=== PATIENT | male | born 1950 | race African-American/Black ===

== ENCOUNTER 2017-03-06 10:01 | Outpatient (CLI) | payer MEDICARE, MEDICAID ==
[~2017-03-06 10:01] MED LIST: ARTIFICIAL TEAR15 ML BOTH EYES; CEFEPIME-D2 GM/50 ML IVPB; CRANBERRY450 M4 PO; KEPPRA500 MG ORAL; LASIX20 M1 ORAL; LISINOPRIL20 MG ORAL; MULTIVITAMINS1 EAC2 ORAL; NEURONTIN300 MG ORAL; NITROGLYCERIN0.4 MG SL; POLYVINYL ALCOH15 ML BOTH EYES; SIMVASTATIN40 MG ORAL; SPIRONOLACTONE25 MG ORAL; TYLENOL325 MG ORAL
--- NOTE | 2017-03-06 13:00 | Diagnostic Imaging Report ---
Clinical Indication: 58-year-old male outpatient with right upper extremity swelling and chest pain Technique: IV administration nonionic contrast. Spiral acquisition obtained through the chest. Multiplanar reconstructions generated. Total dose length product 1746 mGycm. CTDIvol(s) 8, 121, 27, 19 mGy. At the desires are inclusive of neck CT reported separately Dose reduction achieved using automated exposure control Comparison: None Findings: There are somewhat low lung volumes. There is crowding of the vascular markings. There is equivocal slight prominence to the centrilobular interstitial markings, particularly in the upper lobes. No focal airspace consolidation, infiltrates, or effusions are demonstrated. Some scarring is seen in the posterior lateral left lower lobe at the level of pulmonary hilum. The heart is enlarged, demonstrating four-chamber cardiomegaly. There is a right subclavian AICD. The right innominate vein is probably patent. Patency of the right subclavian vein cannot be established as it is not opacified. However, there are no significant collaterals to suggest significant venoocclusive disease. The main pulmonary artery is ectatic, measuring 3.8 cm diameter. The thoracic aorta is also somewhat ectatic although not aneurysmal. There are extensive coronary artery calcifications. No pericardial effusion. No mediastinal hilar mass or adenopathy. Included thyroid is unremarkable. No axillary or chest wall mass or adenopathy. The included upper abdominal anatomy is unremarkable. Impression: Possible mild pulmonary edema No definite findings to explain stated clinical history of right arm swelling. However, the right subclavian vein is not opacified, and stenosis of it cannot be confidently ruled out, particular in view of the presence of AICD wires within. However, there are no definite collaterals to suggest such. Noninvasive duplex imaging may be useful to confirm patency Cardiomegaly Mild interstitial septal thickening, may reflect mild pulmonary edema Mildly ectatic main pulmonary artery, could indicate pulmonary internal hypertension Minimal left upper lobe parenchymal scarring The CT scanner at [facility] is accredited by the [employer] and the scans are performed using protocols designed to limit radiation exposure to as low as reasonably achievable to attain images of sufficient resolution adequate for diagnostic evaluation.
--- NOTE | 2017-03-06 15:25 | Diagnostic Imaging Report ---
Indication: Right upper extremity swelling and chest pain Technique: IV administration nonionic contrast Spiral acquisitions obtained through the neck Multiplanar reconstructions were generated. Total dose length product 1746 mGycm. CTDIvol(s) 8, 121, 27, 19 mGy. Radiation dose was minimized using automated exposure control Comparison: None Findings: Slightly prominent adenoids, otherwise unremarkable nasopharynx. Symmetric prominent tonsillar pillars, otherwise unremarkable oral pharynx. Note tortuosity of the proximal right internal carotid artery, which protrudes immediately lateral and posterior to the right posterior oral pharyngeal mucosa. The left puriform sinus is not aerated, and there is a small amount of hypoattenuating soft tissue in this area, which measures approximately 7 mm transverse by 12 mm AP by 21 mm caudad. Within this soft tissue, there is a 5 mm calcification. The larynx appears unremarkable. No cervical mass or adenopathy is evident. No evidence of significant carotid arterial or jugular venous stenosis. Normal and symmetrical bilateral parotid and submandibular glands. No supraclavicular mass or adenopathy. There is sphenoid sinus disease noted on the highest cut. The thyroid is unremarkable. Wires from what is presumably a right chest pacemaker are noted. There is degenerative cervical spondylosis. Patient is edentulous Impression: Asymmetric absence of aeration of the left piriform sinus, possibly occupied by a small amount of abnormal soft tissue as well as a calcification. Although this could be on the basis of physiologic asymmetry, mucosal malignancy at this location cannot be ruled out, and further evaluation with direct visualization is recommended. Tortuosity of the proximal right internal carotid artery, which is located just behind the right lateral oropharynx CT sinus disease Pacemaker Degenerative cervical spondylosis The CT scanner at [facility] is accredited by the [employer] and the scans are performed using protocols designed to limit radiation exposure to as low as reasonably achievable to attain images of sufficient resolution adequate for diagnostic evaluation.
== END 2017-03-06 12:01 | disposition home or self-care (01) ==
LOC: CAT 10:01
DX: R22.31 Localized swelling, mass and lump, right upper limb (principal); J32.9 Chronic sinusitis, unspecified; Z95.0 Presence of cardiac pacemaker; M47.892 Other spondylosis, cervical region; R60.0 Localized edema; I51.7 Cardiomegaly
CPT/HCPCS: 70491; 71260; Q9967

== ENCOUNTER 2017-07-07 09:42 | Outpatient (CLI) | payer MEDICARE, MEDICAID ==
--- NOTE | 2017-07-12 12:06 | Diagnostic Imaging Report ---
Indication: Osteoporosis Technique: 10 mm thick slices obtained through the L2, L3, and L4 vertebral bodies. Cortical and trabecular regions of interest were drawn. The average trabecular bone mineral density was calculated. Total dose length product 34 mGycm. CTDIvol(s) 4x3 mGy. Dose reduction achieved using automated exposure control Comparison: None Findings: The calculated bone mineral density is 139 mg ca-CAZARES/ml. The T score is -1.33. This indicates the patient's bone mineral density is 1.33 standard deviations below that of normal 20-year-old males. The Z score is 1.84. This indicates the patient's bone mineral density is 1.84 standard deviations above that of age-matched controls Incidentally noted on images through L2 is possible dilatation of the abdominal aorta, which appears to measure up to 4.2 cm transverse Impression: Patient mineral density is 10-25% below that of normal 20-year-old males. Patient is considered osteopenic by WHO criteria. Insufficiency fracture risk is moderate Possible infrarenal abdominal aortic aneurysm. Recommend further evaluation with abdominal aortic ultrasound. Dr. Hdez was notified of this at the time of interpretation The CT scanner at [facility] is accredited by the [employer] and the scans are performed using protocols designed to limit radiation exposure to as low as reasonably achievable to attain images of sufficient resolution adequate for diagnostic evaluation.
== END 2017-07-07 11:42 | disposition home or self-care (01) ==
LOC: CAT 09:42
DX: M81.0 Age-related osteoporosis without current pathological fracture (principal)
CPT/HCPCS: 77078

== ENCOUNTER 2018-07-11 11:19 | Outpatient (CLI) | payer MEDICARE, MEDICAID ==
--- NOTE | 2018-07-11 15:53 | Diagnostic Imaging Report ---
Indication: Back pain. Technique: 24.4 mCi of technetium 99 M-MDP was injected intravenously. A whole-body bone scan was then performed in anterior and posterior projections. Several spot images were also obtained. Comparison: None Findings: . Normal uptake is demonstrated throughout the axial skeleton. Some uptake associated with arthritis likely present within the shoulders, knees, feet/ankles. There are no focal lesions identified to indicate metastatic neoplasm. Impression: Negative whole body bone scan
== END 2018-07-11 13:19 | disposition home or self-care (01) ==
LOC: NUM 11:19
DX: M54.9 Dorsalgia, unspecified (principal)
CPT/HCPCS: 78306; A4641

== ENCOUNTER 2019-09-10 14:19 | Inpatient (IN) | payer MEDICARE, MEDICAID ==
[~2019-09-10] VITALS: Ht 175.3 cm; Wt 99.6 kg
--- NOTE | 2019-09-10 14:22 | NUR ---
ED Nurse Note: PT ARRIVED WITH RA 61 DUE TO SEIZURE FROM HOME. ACCOMPANYING NURSE STATEST THAT PT HAS HAD 2 FOCAL SEIZURES IN CHAIR. DENIES HEAD TRAUMA OR KO. PT IS AOX4 AND IS COOPERATIVE
[2019-09-10 14:23] VITALS: BP 132/68
--- NOTE | 2019-09-10 14:27 | Emergency Room Report ---
History of Present Illness General Chief Complaint: Seizure Source: Patient Present Illness HPI Patient is a 69-year-old male brought in by ambulance after multiple seizures. Patient reportedly had multiple focal seizures at his facility. He had no head injury. Had not been sick for the past few days. Previous history of seizure disorders and normally takes Keppra. He had prior CVA with resulting right- sided weakness. Denies any headache currently. Reports being compliant with his medications. Allergies: Coded Allergies: No Known Allergies (Unverified , 07/28/14) Patient History Past Medical History: see triage record Reviewed Nursing Documentation: PMH: Agreed; PSxH: Agreed Nursing Documentation-PMH Past Medical History: No History, Except For Hx Cardiac Problems: Yes Hx Hypertension: Yes Hx COPD: Yes Hx Diabetes: Yes Hx Cancer: No Hx Gastrointestinal Problems: No Hx Cerebrovascular Accident: Yes - X 3 Hx Seizures: Yes Hx Weakness: Yes - RT SIDED WEAKNESS Review of Systems All Other Systems: negative except mentioned in HPI Physical Exam Vital Signs Date Time Temp Pulse Resp B/P (MAP) Pulse Ox O2 Delivery O2 Flow Rate FiO2 09/10/19 14:15 98.8 66 18 132/68 (89) 100 Room Air Sp02 EP Interpretation: reviewed, normal General Appearance: normal inspection, no apparent distress, alert, Chronically Ill Head: atraumatic ENT: normal ENT inspection, hearing grossly normal, normal voice Neck: normal inspection, full range of motion, supple, no bony tend Respiratory: normal inspection, lungs clear, normal breath sounds, no respiratory distress, no retraction, no wheezing Cardiovascular #1: regular rate, rhythm, no edema Gastrointestinal: normal inspection, normal bowel sounds, non tender, soft, no guarding, no hernia Genitourinary: no CVA tenderness Musculoskeletal: normal inspection, back normal, normal range of motion 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 Differential diagnosis include was not limited to electrolyte abnormality, medication noncompliance, seizure among others. Because of complexity of patient's case laboratory tests and imaging studies were ordered. Laboratory testing showed no acute abnormalities. Patient was given IV Keppra. Dr. Tee Novoa was contacted for inpatient management due to recurrent seizures. Laboratory Tests Test 09/10/19 14:30 09/10/19 15:15 White Blood Count 8.0 K/UL (4.8-10.8) Red Blood Count 4.53 M/UL (4.70-6.10) L Hemoglobin 13.4 G/DL (14.2-18.0) L Hematocrit 39.5 % (42.0-52.0) L Mean Corpuscular Volume 87 FL (80-99) Mean Corpuscular Hemoglobin 29.5 PG (27.0-31.0) Mean Corpuscular Hemoglobin Concent 33.8 G/DL (32.0-36.0) Red Cell Distribution Width 11.8 % (11.6-14.8) Platelet Count 215 K/UL (150-450) Mean Platelet Volume 7.9 FL (6.5-10.1) Neutrophils (%) (Auto) 61.1 % (45.0-75.0) Lymphocytes (%) (Auto) 27.4 % (20.0-45.0) Monocytes (%) (Auto) 6.4 % (1.0-10.0) Eosinophils (%) (Auto) 3.8 % (0.0-3.0) H Basophils (%) (Auto) 1.4 % (0.0-2.0) Sodium Level 140 MMOL/L (136-145) Potassium Level 3.9 MMOL/L (3.5-5.1) Chloride Level 104 MMOL/L (98-107) Carbon Dioxide Level 28 MMOL/L (21-32) Anion Gap 8 mmol/L (5-15) Blood Urea Nitrogen 14 mg/dL (7-18) Creatinine 1.3 MG/DL (0.55-1.30) Estimate Glomerular Filtration Rate mL/min (>60) Glucose Level 161 MG/DL (74-106) H Calcium Level 9.5 MG/DL (8.5-10.1) Total Bilirubin 0.3 MG/DL (0.2-1.0) Aspartate Amino Transferase (AST) 19 U/L (15-37) Alanine Aminotransferase (ALT) 28 U/L (12-78) Alkaline Phosphatase 82 U/L (46-116) Troponin I 0.000 ng/mL (0.000-0.056) Total Protein 8.4 G/DL (6.4-8.2) H Albumin 3.7 G/DL (3.4-5.0) Globulin 4.7 g/dL Albumin/Globulin Ratio 0.8 (1.0-2.7) L Urine Color Pale yellow Urine Appearance Clear Urine pH 6 (4.5-8.0) Urine Specific [place] 1.010 (1.005-1.035) Urine Protein Negative (NEGATIVE) Urine Glucose (UA) Negative (NEGATIVE) Urine Ketones Negative (NEGATIVE) Urine Blood Negative (NEGATIVE) Urine Nitrite Negative (NEGATIVE) Urine Bilirubin Negative (NEGATIVE) Urine Urobilinogen Normal MG/DL (0.0-1.0) Urine Leukocyte Esterase 2+ (NEGATIVE) H Urine RBC 0-2 /HPF (0 - 0) H Urine WBC 10-15 /HPF (0 - 0) H Urine Squamous Epithelial Cells Few /LPF (NONE/OCC) Urine Bacteria Moderate /HPF (NONE) H Last Vital Signs Date Time Temp Pulse Resp B/P (MAP) Pulse Ox O2 Delivery O2 Flow Rate FiO2 09/10/19 14:23 98.8 81 18 132/68 100 Room Air Status: unchanged Disposition: ADMITTED INPATIENT Condition: Stable Brando Oglesby MD Sep 10, 2019 14:27
[2019-09-10] MEDS ORDERED: levETIRAcetam 500mg/NS100ml 100 ML IVPB ONE (14:30)
[2019-09-10 14:43] LABS: BASOPHILS % (AUTO) 1.4 % (0.0-2.0); EOSINOPHILS % (AUTO) 3.8 % (0.0-3.0); HEMATOCRIT 39.5 % (42.0-52.0); HEMOGLOBIN 13.4 G/DL (14.2-18.0); LYMPHOCYTES % (AUTO) 27.4 % (20.0-45.0); MEAN CORPUSCULAR VOLUME 87 FL (80-99); MONOCYTES % (AUTO) 6.4 % (1.0-10.0); NEUTROPHILS % (AUTO) 61.1 % (45.0-75.0); PLATELET COUNT 215 K/UL (150-450); RED BLOOD COUNT 4.53 M/UL (4.70-6.10); RED CELL DISTRIBUTION WIDTH 11.8 % (11.6-14.8)
[2019-09-10] MEDS ORDERED: FLOMAX0.4 MG ORAL (14:53)
[2019-09-10] MEDS ORDERED: CLARITIN10 M2 ORAL (14:53)
[2019-09-10] MEDS ORDERED: COREG25 MG ORAL (14:53)
[2019-09-10] MEDS ORDERED: HYDRALAZINE HC100 MG ORAL (14:54)
[2019-09-10] MEDS ORDERED: LEUPROLIDE1 MG/0.2 M IM (14:56)
[2019-09-10] MEDS ORDERED: NEURONTIN100 MG ORAL (14:56)
[2019-09-10 15:05] LABS: ANION GAP 8 mmol/L (5-15); BLOOD UREA NITROGEN 14 mg/dL (7-18); CALCIUM 9.5 MG/DL (8.5-10.1); CARBON DIOXIDE 28 MMOL/L (21-32); CHLORIDE 104 MMOL/L (98-107); CREATININE 1.3 MG/DL (0.55-1.30); POTASSIUM 3.9 MMOL/L (3.5-5.1); SODIUM 140 MMOL/L (136-145)
[2019-09-10 15:10] LABS: ALANINE AMINOTRANSFERASE 28 U/L (12-78); ALBUMIN 3.7 G/DL (3.4-5.0); ALBUMIN/GLOBULIN RATIO 0.8 (1.0-2.7); ALKALINE PHOSPHATASE 82 U/L (46-116); ASPARTATE AMINO TRANSFERASE 19 U/L (15-37); BILIRUBIN,TOTAL 0.3 MG/DL (0.2-1.0)
[2019-09-10 15:29] LABS: APPEARANCE,URINE CLEAR; BILIRUBIN, URINE NEGATIVE (NEGATIVE); COLOR,URINE PALE YELLOW; GLUCOSE, URINE (UA) NEGATIVE (NEGATIVE); KETONES,URINE NEGATIVE (NEGATIVE); LEUKOCYTE ESTERASE ,URINE 2+ (NEGATIVE); NITRITE,URINE NEGATIVE (NEGATIVE); PH,URINE 6 (4.5-8.0); PROTEIN,URINE NEGATIVE (NEGATIVE); UROBILINOGEN,URINE NORMAL MG/DL (0.0-1.0)
[2019-09-10] MEDS ORDERED: cefTRIAXone 1 GM in NS 55 ML IVPB ONE (15:45)
--- NOTE | 2019-09-10 16:55 | Diagnostic Imaging Report ---
Indication: Shortness of breath Technique: One view of the chest Comparison: none Findings: There is an AICD noted. The power pack obscures the right lung base. No definite acute infiltrates, effusions, congestion. The heart is mildly enlarged. The aorta is tortuous ectatic and calcified. Impression: Somewhat limited exam due to the presence of an AICD No definite acute process Cardiomegaly
--- NOTE | 2019-09-10 17:45 | NUR ---
ED Nurse Note: pt refused vre/cre
--- NOTE | 2019-09-10 18:31 | NUR ---
ED Nurse Note: TELEPHONE REPORT GIVEN TO BARBARA OVIEDO FOR CONTINUITY OF CARE
[2019-09-10 18:32] VITALS: BP 133/76
--- NOTE | 2019-09-10 18:43 | NUR ---
TRANSFER TO FLOOR: Patient transferred to TELE as ordered, per ERMD . Report given to BARBARA OVIEDO. Belongings GIVEN TO PT.
[2019-09-10 19:06] VITALS: BP 144/73
--- NOTE | 2019-09-10 19:08 | NUR ---
NURSE NOTES: Received pt from DIRECTOR OF PUPIL PERSONNEL PROGRAM DAVE, Pt is awake and alert, pt has tachypnea, no complain of pain at this moment, pt has intact iv access LFA 20G SL. pt is on continues heart monitoring. skin is intact. pt has 10$ and refused to keep in safe. all needs attended, bed is locked and is in the lowest position, call light within easy reach. will continue to monitor.
--- NOTE | 2019-09-10 19:22 | NUR ---
NURSE NOTES: received patient from Ayesha Longo, patient in stable condition, on RA, VSS, denies pain at this time, IV access on left forearm, asymptomatic, patent, bed low&locked, side rails upx3, call light within reach, will continue to monitor and reassess. Dr Novoa called for admission orders, awaiting call back
--- NOTE | 2019-09-10 19:39 | NUR ---
HAND-OFF: Report given to TOMASA JIMENEZ. Pt is awake and stable. Pt is on seizure precaution, pads around bed and suction is available.
[2019-09-10] MEDS ORDERED: Nitroglycerin Subl 0.4mg tab SL PRN (20:45)
[2019-09-10] MEDS ORDERED: LORazepam Inj 2mg/ml 1ml IV PRN (20:45)
[2019-09-10] MEDS ORDERED: Lisinopril 20mg tab ORAL SCH (21:00)
[2019-09-10 22:24] VITALS: BP 132/84
[2019-09-10] MEDS: Tamsulosin 0.4mg cap ORAL SCH (22:26)
[2019-09-10] MEDS: Carvedilol 25mg Tab ORAL SCH (22:27)
[2019-09-10] MEDS: Heparin 5000 units/ml inj SUBQ SCH (22:29)
[2019-09-10] MEDS: D5 1/2NS 1,000 ML IV SCH (22:29)
[2019-09-11] VITALS (7 sets, daily range): BP systolic 110–142; BP diastolic 76–82
[2019-09-11 07:28] LABS: BASOPHILS % (AUTO) 1.9 % (0.0-2.0); EOSINOPHILS % (AUTO) 3.4 % (0.0-3.0); HEMATOCRIT 37.6 % (42.0-52.0); HEMOGLOBIN 12.7 G/DL (14.2-18.0); MEAN CORPUSCULAR VOLUME 86 FL (80-99); MONOCYTES % (AUTO) 7.5 % (1.0-10.0); NEUTROPHILS % (AUTO) 63.2 % (45.0-75.0); PLATELET COUNT 206 K/UL (150-450); RED BLOOD COUNT 4.36 M/UL (4.70-6.10); RED CELL DISTRIBUTION WIDTH 11.7 % (11.6-14.8); WHITE BLOOD COUNT 6.9 K/UL (4.8-10.8)
[2019-09-11 07:46] LABS: ANION GAP 8 mmol/L (5-15); BLOOD UREA NITROGEN 16 mg/dL (7-18); CARBON DIOXIDE 29 MMOL/L (21-32); CHLORIDE 105 MMOL/L (98-107); POTASSIUM 3.9 MMOL/L (3.5-5.1); SODIUM 142 MMOL/L (136-145)
--- NOTE | 2019-09-11 07:54 | NUR ---
HAND-OFF: Report given to BARBARA Arana, patient in stable codition, plan of care endorsed.
--- NOTE | 2019-09-11 08:00 | NUR ---
NURSE NOTES: Patient stable AOx3. No s/sx of distress. RR even and unlabored on RA. Patient ambulating with steady gait. Side rails upx2, call light within reach, bed low and locked. Will continue to monitor.
[2019-09-11] MEDS: Spironolactone 25mg tab ORAL SCH (08:45)
[2019-09-11] MEDS: Carvedilol 25mg Tab ORAL SCH ×2 (08:46→22:00)
[2019-09-11] MEDS: Lisinopril 20mg tab ORAL SCH ×2 (08:47→21:00)
[2019-09-11] MEDS: Heparin 5000 units/ml inj SUBQ SCH ×2 (08:49→22:03)
--- NOTE | 2019-09-11 12:32 | Consultation ---
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 presented to ED on 09/10 after multiple seizures episodes Denied head injury, recent illness Allergies: Coded Allergies: No Known Allergies (Unverified , 07/28/14) Medication History Scheduled Carvedilol (Coreg), 25 MG ORAL EVERY 12 HOURS, (Reported) Cefepime Hcl/D5w (Cefepime-Dextrose 2 Gm/50 Ml), 2 GM IVPB EVERY 12 HOURS Cranberry Fruit Concentrate (Cranberry), 450 MG PO DAILY, (Reported) Furosemide* (Lasix*), 20 MG ORAL DAILY, (Reported) Gabapentin (Neurontin), 300 MG ORAL THREE TIMES A DAY, (Reported) Gabapentin* (Neurontin*), 300 MG ORAL THREE TIMES A DAY, (Reported) Hydralazine Hcl* (Hydralazine Hcl*), 100 MG ORAL EVERY 8 HOURS, (Reported) Levetiracetam (Keppra), 1,000 MG ORAL EVERY 12 HOURS, (Reported) Lisinopril (Lisinopril*), 20 MG ORAL BID, (Reported) Loratadine (Claritin), 10 MG ORAL DAILY, (Reported) Multivitamins* (Multivitamins*), 1 TAB ORAL DAILY, (Reported) Polyvinyl Alcohol (Polyvinyl Alcohol), 1 DRP BOTH EYES THREE TIMES A DAY, ( Reported) Simvastatin (Zocor), 20 MG ORAL BEDTIME, (Reported) Spironolactone* (Aldactone*), 25 MG ORAL DAILY, (Reported) Tamsulosin HCl (Flomax), 0.4 MG ORAL DAILY, (Reported) Scheduled PRN Acetaminophen (Tylenol), 650 MG ORAL Q4HR PRN for Fever/Headache/Mild Pain, ( Reported) Dextran 70/Hypromellose (Artificial Tears Eye Drops*), 1 DROP BOTH EYES TID PRN for Dry Eyes, (Reported) Nitroglycerin (Nitroglycerin), 0.4 MG SL PRN PRN for Prn Chest Pain, (Reported) Miscellaneous Medications Leuprolide Acetate (Leuprolide Acetate), 7.5 MG IM, (Reported) Patient History Healthcare decision maker Resuscitation status Full Code Advanced Directive on File No Patient History Narrative Pmhx: as above Shx: reviewed Fhx: non contributory Review of Systems All Other Systems: negative except mentioned in HPI Physical Exam Physical Exam Narrative General Appearance: normal inspection, well appearing, no apparent distress, alert, Chronically Ill Head: atraumatic ENT: normal ENT inspection, hearing grossly normal, normal voice Neck: normal inspection, full range of motion, supple, no bony tend Respiratory: normal inspection, lungs clear, normal breath sounds, no respiratory distress, no retraction, no wheezing Cardiovascular regular rate, rhythm, no edema Gastrointestinal: normal inspection, normal bowel sounds, non tender, soft, no guarding, no hernia Genitourinary: no CVA tenderness Musculoskeletal: normal inspection, back normal, normal range of motion 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, 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, motor weakness - dense right hemiplegia, responsive, aphasia - expressive Skin: no rash Last 24 Hour Vital Signs Date Time Temp Pulse Resp B/P (MAP) Pulse Ox O2 Delivery O2 Flow Rate FiO2 09/11/19 12:00 97.9 66 20 110/77 (88) 94 09/11/19 09:00 Nasal Cannula 2.0 09/11/19 09:00 Room Air 09/11/19 08:47 126/77 09/11/19 08:46 61 126/77 09/11/19 08:00 72 09/11/19 08:00 98.7 61 19 124/77 (93) 94 09/11/19 04:00 65 09/11/19 04:00 99.4 77 18 142/82 (102) 93 09/11/19 00:00 94 09/11/19 00:00 76 09/11/19 00:00 98.8 81 18 117/77 (90) 93 09/10/19 22:28 132/84 09/10/19 22:27 94 132/84 09/10/19 22:24 98.1 94 18 132/84 (100) 95 09/10/19 21:00 Room Air 09/10/19 19:06 Room Air 09/10/19 19:06 99.1 93 22 144/73 (96) 96 09/10/19 18:50 91 09/10/19 18:40 98.7 93 25 127/83 96 Room Air 09/10/19 18:32 98.8 60 16 133/76 99 Room Air 09/10/19 14:23 98.8 81 18 132/68 100 Room Air 09/10/19 14:23 66 18 Room Air 09/10/19 14:15 98.8 66 18 132/68 (89) 100 Room Air Intake and Output 09/10/19 09/11/19 19:00 07:00 Intake Total 700 ml Output Total 0 ml Balance 700 ml Intake IV Total 700 ml Output Urine Total 0 ml Laboratory Tests Test 09/10/19 14:30 09/10/19 15:15 09/11/19 06:43 White Blood Count 8.0 K/UL (4.8-10.8) 6.9 K/UL (4.8-10.8) Red Blood Count 4.53 M/UL (4.70-6.10) L 4.36 M/UL (4.70-6.10) L Hemoglobin 13.4 G/DL (14.2-18.0) L 12.7 G/DL (14.2-18.0) L Hematocrit 39.5 % (42.0-52.0) L 37.6 % (42.0-52.0) L Mean Corpuscular Volume 87 FL (80-99) 86 FL (80-99) Mean Corpuscular Hemoglobin 29.5 PG (27.0-31.0) 29.2 PG (27.0-31.0) Mean Corpuscular Hemoglobin Concent 33.8 G/DL (32.0-36.0) 33.8 G/DL (32.0-36.0) Red Cell Distribution Width 11.8 % (11.6-14.8) 11.7 % (11.6-14.8) Platelet Count 215 K/UL (150-450) 206 K/UL (150-450) Mean Platelet Volume 7.9 FL (6.5-10.1) 8.3 FL (6.5-10.1) Neutrophils (%) (Auto) 61.1 % (45.0-75.0) 63.2 % (45.0-75.0) Lymphocytes (%) (Auto) 27.4 % (20.0-45.0) 24.0 % (20.0-45.0) Monocytes (%) (Auto) 6.4 % (1.0-10.0) 7.5 % (1.0-10.0) Eosinophils (%) (Auto) 3.8 % (0.0-3.0) H 3.4 % (0.0-3.0) H Basophils (%) (Auto) 1.4 % (0.0-2.0) 1.9 % (0.0-2.0) Sodium Level 140 MMOL/L (136-145) 142 MMOL/L (136-145) Potassium Level 3.9 MMOL/L (3.5-5.1) 3.9 MMOL/L (3.5-5.1) Chloride Level 104 MMOL/L (98-107) 105 MMOL/L (98-107) Carbon Dioxide Level 28 MMOL/L (21-32) 29 MMOL/L (21-32) Anion Gap 8 mmol/L (5-15) 8 mmol/L (5-15) Blood Urea Nitrogen 14 mg/dL (7-18) 16 mg/dL (7-18) Creatinine 1.3 MG/DL (0.55-1.30) 1.0 MG/DL (0.55-1.30) Estimat Glomerular Filtration Rate mL/min (>60) mL/min (>60) Glucose Level 161 MG/DL (74-106) H 196 MG/DL (74-106) H Calcium Level 9.5 MG/DL (8.5-10.1) 9.0 MG/DL (8.5-10.1) Total Bilirubin 0.3 MG/DL (0.2-1.0) Aspartate Amino Transf (AST/SGOT) 19 U/L (15-37) Alanine Aminotransferase (ALT/SGPT) 28 U/L (12-78) Alkaline Phosphatase 82 U/L (46-116) Troponin I 0.000 ng/mL (0.000-0.056) Total Protein 8.4 G/DL (6.4-8.2) H Albumin 3.7 G/DL (3.4-5.0) Globulin 4.7 g/dL Albumin/Globulin Ratio 0.8 (1.0-2.7) L Urine Color Pale yellow Urine Appearance Clear Urine pH 6 (4.5-8.0) Urine Specific [place] 1.010 (1.005-1.035) Urine Protein Negative (NEGATIVE) Urine Glucose (UA) Negative (NEGATIVE) Urine Ketones Negative (NEGATIVE) Urine Blood Negative (NEGATIVE) Urine Nitrite Negative (NEGATIVE) Urine Bilirubin Negative (NEGATIVE) Urine Urobilinogen Normal MG/DL (0.0-1.0) Urine Leukocyte Esterase 2+ (NEGATIVE) H Urine RBC 0-2 /HPF (0 - 0) H Urine WBC 10-15 /HPF (0 - 0) H Urine Squamous Epithelial Cells Few /LPF (NONE/OCC) Urine Bacteria Moderate /HPF (NONE) H Microbiology Date/Time Source Procedure Growth Status 09/10/19 15:15 Urine,Clean Catch Urine Culture - Preliminary Gram Negative Bacillus 1 Resulted Height (Feet): 5 Height (Inches): 9.00 Weight (Pounds): 219 Medications Current Medications Medications (Trade) Dose Ordered Sig/Wiley Route PRN Reason Start Time Stop Time Status Last Admin Dose Admin Acetaminophen (Tylenol) 650 mg Q4H PRN ORAL Mild Pain/Temp > 100.5 09/10/19 20:45 10/10/19 20:44 Atorvastatin Calcium (Lipitor) 10 mg BEDTIME ORAL 09/11/19 21:00 10/11/19 20:59 Carvedilol (Coreg) 25 mg EVERY 12 HOURS ORAL 09/10/19 21:00 10/10/19 20:59 09/11/19 08:46 Dextrose/Sodium Chloride 1,000 ml @ 60 mls/hr [id number] IV 09/10/19 21:15 10/10/19 21:14 09/10/19 22:29 Furosemide (Lasix) 20 mg DAILY ORAL 09/11/19 09:00 10/11/19 08:59 09/11/19 08:46 Gabapentin (Neurontin) 300 mg THREE TIMES A DAY ORAL 09/11/19 09:00 10/11/19 08:59 09/11/19 08:47 Heparin Sodium (Porcine) (Heparin 5000 units/ml) 5,000 units EVERY 12 HOURS SUBQ 09/10/19 21:00 10/10/19 20:59 09/11/19 08:49 Hydralazine HCl (Apresoline) 100 mg Q8HR ORAL 09/11/19 14:00 10/11/19 13:59 Levetiracetam (Keppra) 1,000 mg Q12HR ORAL 09/10/19 21:00 10/10/19 20:59 09/11/19 08:45 Lisinopril (PriniviL) 20 mg Q12HR ORAL 09/11/19 09:00 10/10/19 20:59 09/11/19 08:47 Lorazepam (Ativan 2mg/ml 1ml) 1 mg Q4H PRN IV For Anxiety 09/10/19 20:45 09/17/19 20:44 Multivitamins (Multivitamins) 1 tab DAILY ORAL 09/11/19 09:00 10/11/19 08:59 09/11/19 08:47 Nitroglycerin (Ntg) 0.4 mg Q5M PRN SL Prn Chest Pain 09/10/19 20:45 10/10/19 20:44 Spironolactone (Aldactone) 25 mg DAILY ORAL 09/11/19 09:00 10/11/19 08:59 09/11/19 08:45 Tamsulosin HCl (Flomax) 0.4 mg BEDTIME ORAL 09/10/19 21:00 10/10/19 20:59 09/10/19 22:26 Assessment/Plan Assessment/Plan: Abx: Ceftriaxone x1 09/10 Assessment: Seizure breakthrough, multiple episodes Afebrile No leukocytosis UTI (frequency) -u/a wbc 10-15, nit neg, leuk +2; ucx >100k GNR TRAE, improving HTN DM2 seizure disorder on Keppra 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 Will continue to follow along with you. Discussed with Sujatha Aguilar M.D. Sep 11, 2019 12:32
--- NOTE | 2019-09-11 13:00 | NUR ---
*-* NO INSURANCE INFORMATION IN THE BAR UNABLE TO SEND CLINICALS OR REVIEWS *-*
--- NOTE | 2019-09-11 13:42 | NUR ---
CASE MANAGEMENT:REVIEW 69 YR OLD MALE BIBA FROM [facility] CC: SEIZURE SI: RECURRENT SEIZURE. UTI 98.7 66 18 132/68 100% ON RA IS: 500CC NS BOLUS IV KEPPRA IV ROCEPHIN CHEST XRAY : TO TELEMETRY DCP; RETURN TO [facility]
[2019-09-11] MEDS: D5 1/2NS 1,000 ML IV SCH (13:44)
[2019-09-11] MEDS: HydrALAZINE 50mg tab ORAL SCH ×2 (14:00→22:00)
--- NOTE | 2019-09-11 14:48 | NUR ---
P.T Note: P.T evaluation completed. Based on P.T evaluation, pt is currently baseline independent in all areas of functional mobilities and gait/locomotion w/o AD needed despite residual deficits from old CVA therefor skilled P.T not needed at this time. D/C P.T services. Thank you for this referral.
--- NOTE | 2019-09-11 15:11 | NUR ---
ST NOTES: REFERRED FOR A SWALLOWING EVALUATION BY DR ANDRE, SEE FULL REPORT. DYSPHAGIA RISK FACTORS FOR THIS 69 Y.O.M.: ACUTE ISSUES: RECURRENT SEIZURES, UTI RELEVANT MEDS: KEPPRA, ATIVAN, FLOMAX. 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 SEEN ON 07/29/14 AT [facility] 6 YEARS AGO HAD A MILD OROPHARYNGEAL DYSPHAGIA AND ORAL APRAXIA AND PERIODS OF REFUSAL OF PO TRIALS (HAD FOOD PREFERENCES). [facility] SO[facility]PED DIET AND THIN LIQUIDS WITH ASPIRATION AND REFLUX PRECAUTIONS. NO PNA AT THAT TIME. (NO MOD BARIUM SWALLOW STUDY DUE TO SCHEDULE CONFLICTS), PLACED ON ADVANCE DIRETIVE STATES NO TUBE FEEDINGS. AT SNF ON A MAMADOU REGULAR TEXTURE DIET AND THIN LIQUIDS. CURRENTLY ON A REGULAR TYPE AND TEXTURE DIET AND THIN LIQUIDS BUT NO INTAKE RECORDED (DOA YESTERDAY 09/10/19). PER RN, TOOK ALL 4 SMALL PILLS WITH WATER W/O APPARENT DIFFICULTY. PT WANTED TO TAKE THEM ALL AT ONCE. THE PATIENT IS MOSTLY NONVERBAL AND HAS EXPRESSIVE APHASIA AND ORAL VERBAL APRAXIA. HAS UPPER AND LOWER DENTURES THAT HE DOES NOT WANT TO USE WITH MASTICATED SOLIDS (PREFERS TO GUM THE FOOD). HE IS ABLE TO IMITATE SOME NUMBERS, VOWELS AND ALSO HAS SOME DYSARTHRIA (SOFTER VOICE AND LESS PRECISE IN ARTICULATION) MILD LEFT LABIAL WEAKNESS OR ASYMMETRY AT REST MOSTLY. ADEQUATE LIP STRENGTH FOR RETRACTION/PROTRUSION. TONGUE SPEED IS SLOWER, LESS COORDINATED, FAIR STRENGTH, POOR LATERALIZATION TO THE RIGHT, ELEVATION, AND DEPRESSION. PROBLEMS COMPOUNDED BY ORAL APRAXIA WITH TONGUE MOSTLY. INITIAL IMPRESSIONS S/S OF AT LEAST A MILD OROPHARYNGEAL DYSPHAGIA MOSTLY WITH MASTICATED SOLIDS MOSTLY (W/O DENTITION) GIVEN 1/2 CRACKER, SLOWER CHEWING (15 SECONDS), SWALLOWS WITH HYOLARYNGEAL EXCURSION, MIN ORAL RESIDUE ON TONGUE THAT HE CLEARS WITH A SECOND SPONTANEOUS SWALLOW. NO OVERT ASPIRATION. APPEARS TO HAVE A GROSSLY FUNCTIONAL SWALLOW WITH THIN LIQUIDS VIA STRAW SEQUENTIAL SIP (3 OZ WATER OK SWALLOW PROTOCOL) WITH GOOD RESP RATE) AND PUREED TSP. NO OVERT ASPIRATION. GIVEN NEURO DX HAS SILENT ASPIRATION RISK BUT LUNGS ARE CLEAR NOW. RECOMMENDATION DOWNGRADE TO [facility] SOFT CHOPPED DIET AND THIN LIQUIDS WITH POSTED ASPIRATION AND REFLUX PRECAUTIONS AND ASSIST WITH MEALS. IF DISLIKES CHOPPED CAN SEND SOFT CHEW AND CUT FOOD FOR HIM HE HAS A RIGHT UE DEFICT AND NEEDS ASSIST. MAMADOU DIET TYPE FROM SNF OR PER RD RECOMMENDATIONS WHEN AVAILABLE. CONSIDER MOD BARIUM SWALLOW STUDY TO FURTHER ASSESS SWALLOW, DETERMINE SILENT ASP RISK/ETIOLOGY, AND ATTEMPT TRIAL TX (DO NOT HOLD UP DC FOR THIS STUDY IT CAN BE COMPLETED AN OUTPATIENT). SKILLED DYSPHAGIA MANAGEMENT AND TX AND COGNITIVE-COMMUNICATIVE EVAL/TX FOR COMMUNICATION TIPS (HAS EXPRESSIVE APHASIA AND ORAL-VERBAL APRAXIA). EDUCATED/TRAINED RN (CLAUDIA) IN POSTED PRECAUTIONS. CONSIDER
--- NOTE | 2019-09-11 15:15 | History and Physical Report ---
DATE OF ADMISSION: 09/10/2019 TIME SEEN: 9 a.m. CONSULTANTS: 1. 2. Scott Paulson M.D CHIEF COMPLAINT: Seizure, CVA, UTI. BRIEF HISTORY: This is a 69-year-old male from [facility], presented with above-mentioned diagnoses, seizure x2 was noted, came to [facility], diagnosed with the above, admitted to telemetry for further care. Currently, calm in bed, slightly lethargic which is baseline. No complaint. REVIEW OF SYSTEMS: No chest pain. No shortness of breath. No nausea, vomiting, or diarrhea. PAST MEDICAL HISTORY: Includes CVA, seizure, right-sided weakness. PAST SURGICAL HISTORY: Pacemaker. MEDICATIONS: Include atorvastatin, hydralazine, furosemide, gabapentin, spironolactone, levetiracetam, Tylenol, nitroglycerin, ceftriaxone. ALLERGIES: Denies. SOCIAL HISTORY: No smoking. No alcohol. No intravenous drug abuse. FAMILY HISTORY: Noncontributory. PHYSICAL EXAMINATION: GENERAL: Calm in bed, oriented x2, in no acute distress. VITAL SIGNS: Temperature 99, pulse 77, respirations 18, and blood pressure 142/82, now recheck at 126/77. CARDIOVASCULAR: No murmur. LUNGS: Distant and clear. ABDOMEN: Positive bowel sound positive. Nontender. Nondistended. EXTREMITIES: No cyanosis, clubbing, or edema. NEUROLOGIC: Right-sided weakness noted on arm and legs. LABORATORY DATA: Hemoglobin and hematocrit 12 and 37, otherwise CBC is normal. BMP show glucose 196, otherwise BMP is normal. Urinalysis show 2+ leukocyte esterase. ASSESSMENT: 1. Seizure. 2. CVA. 3. Right-sided weakness. 4. UTI. 5. Diabetes. 6. Anemia. PLAN: 1. Blood pressure and seizure control. 2. Dietary followup. 3. Resume home medications. 4. PT and dietary evaluation. 5. Seizure precautions. 6. CBC and BMP in the morning. Tee Novoa D.O. DR: Xochitl JOB#: [id number] CC:
[2019-09-11] MEDS: cefTRIAXone 1 GM in D5W 55 ML IVPB SCH (17:11)
--- NOTE | 2019-09-11 19:24 | NUR ---
HAND-OFF: Report given to Naila Pate RN. Patient stable. Plan of care endorsed.
--- NOTE | 2019-09-11 20:09 | NUR ---
NURSE NOTES: Received patient from Ayesha Arana, patient in stable condition, on RA,denies pain at this time, IV access on left wrist g 24, asymptomatic, patent, bed low&locked, side rails upx3, call light within reach, will continue to monitor and reassess.Family at bedside
[2019-09-11] MEDS: Tamsulosin 0.4mg cap ORAL SCH (21:58)
[2019-09-12] VITALS: BP 115/74
[2019-09-12 04:00] VITALS: BP 139/88
[2019-09-12] MEDS: HydrALAZINE 50mg tab ORAL SCH ×3 (06:00→22:00)
--- NOTE | 2019-09-12 07:26 | NUR ---
HAND-OFF: Report given to BARBARA Arana,patient in stable condition, plan of care endorsed.
[2019-09-12 07:29] LABS: BASOPHILS % (AUTO) 1.7 % (0.0-2.0); EOSINOPHILS % (AUTO) 6.4 % (0.0-3.0); HEMATOCRIT 38.9 % (42.0-52.0); LYMPHOCYTES % (AUTO) 18.9 % (20.0-45.0); MEAN CORPUSCULAR VOLUME 87 FL (80-99); MONOCYTES % (AUTO) 9.4 % (1.0-10.0); NEUTROPHILS % (AUTO) 63.7 % (45.0-75.0); PLATELET COUNT 208 K/UL (150-450); RED BLOOD COUNT 4.47 M/UL (4.70-6.10); WHITE BLOOD COUNT 5.9 K/UL (4.8-10.8)
[2019-09-12] MEDS: D5 1/2NS 1,000 ML IV SCH ×2 (07:31→23:21)
[2019-09-12 07:35] LABS: ANION GAP 9 mmol/L (5-15); BLOOD UREA NITROGEN 13 mg/dL (7-18); CALCIUM 9.2 MG/DL (8.5-10.1); CARBON DIOXIDE 28 MMOL/L (21-32); CHLORIDE 105 MMOL/L (98-107); POTASSIUM 3.9 MMOL/L (3.5-5.1); SODIUM 142 MMOL/L (136-145)
[2019-09-12 08:00] VITALS: BP 122/79
[2019-09-12] MEDS: Spironolactone 25mg tab ORAL SCH (09:02)
[2019-09-12] MEDS: Lisinopril 20mg tab ORAL SCH ×2 (09:02→21:16)
[2019-09-12] MEDS: Carvedilol 25mg Tab ORAL SCH ×2 (09:02→21:00)
[2019-09-12] MEDS: Heparin 5000 units/ml inj SUBQ SCH ×2 (09:03→21:17)
[2019-09-12 12:00] VITALS: BP 105/69
--- NOTE | 2019-09-12 14:24 | NUR ---
SWALLOW STATUS AND PLAN: NOTE: D/C SUMMARY: PATIENT TOLERATING CURRENT DIET WITH NO OVERT S/S OF ASPIRATION. HE IS ABLE TO INDEPENDENTLY SELF FEED HIMSELF WITH MINIMAL SET UP ASSIST. PATIENT HAS MET P.O. INTAKE GOALS, NURSING STAFF MET ASPIRATION PRECAUTIONS AND ORAL CARE GOALS. CONTINUE CURRENT DIET D/C FROM SKILLED ST SERVICE
--- NOTE | 2019-09-12 14:44 | General Progress Note ---
Assessment/Plan Problem List: (1) Sepsis ICD Codes: A41.9 - Sepsis, unspecified organism SNOMED: 74742054 (2) Urinary tract infection ICD Codes: N39.0 - Urinary tract infection, site not specified SNOMED: 48715195 (3) Recurrent seizures ICD Codes: G40.909 - Epilepsy, unspecified, not intractable, without status epilepticus SNOMED: 74841865, 59412405 (4) History of CVA with residual deficit ICD Codes: I69.30 - Unspecified sequelae of cerebral infarction SNOMED: 703810272 Status: unchanged Assessment/Plan: seizure control pt diet eval cbc bmp am Subjective Constitutional: Reports: weakness Allergies: Coded Allergies: No Known Allergies (Unverified , 07/28/14) All Systems: reviewed and negative except above Subjective sitting calm Objective Last 24 Hour Vital Signs Date Time Temp Pulse Resp B/P (MAP) Pulse Ox O2 Delivery O2 Flow Rate FiO2 09/12/19 12:53 105/69 09/12/19 12:00 60 09/12/19 12:00 98.0 62 20 105/69 (81) 99 09/12/19 09:02 122/79 09/12/19 09:02 62 122/79 09/12/19 09:00 Room Air 09/12/19 08:00 61 09/12/19 08:00 98.2 62 20 122/79 (93) 99 09/12/19 06:00 140/75 09/12/19 04:00 60 09/12/19 04:00 97.2 63 19 139/88 (105) 96 09/12/19 00:00 68 09/12/19 00:00 97.2 60 18 115/74 (88) 95 09/11/19 22:00 123/80 09/11/19 22:00 60 123/80 09/11/19 21:55 123/80 (94) 09/11/19 21:00 123/80 09/11/19 21:00 Room Air 09/11/19 20:00 97.5 60 16 120/76 (91) 94 09/11/19 20:00 64 09/11/19 16:00 97.5 67 19 110/76 (87) 94 09/11/19 16:00 62 Intake and Output 09/11/19 09/12/19 19:00 07:00 Intake Total 965 ml Output Total 1500 ml 800 ml Balance -535 ml -800 ml Intake Oral 280 ml IV Total 685 ml Output Urine Total 1500 ml 800 ml # Voids 3 Laboratory Tests 09/12/19 06:38: White Blood Count 5.9, Red Blood Count 4.47L, Hemoglobin 13.0L, Hematocrit 38.9L , Mean Corpuscular Volume 87, Mean Corpuscular Hemoglobin 29.1, Mean Corpuscular Hemoglobin Concent 33.4, Red Cell Distribution Width 12.0, Platelet Count 208, Mean Platelet Volume 8.1, Neutrophils (%) (Auto) 63.7, Lymphocytes (% ) (Auto) 18.9L, Monocytes (%) (Auto) 9.4, Eosinophils (%) (Auto) 6.4H, Basophils (%) (Auto) 1.7, Sodium Level 142, Potassium Level 3.9, Chloride Level 105, Carbon Dioxide Level 28, Anion Gap 9, Blood Urea Nitrogen 13, Creatinine 1.0, Estimat Glomerular Filtration Rate , Glucose Level 214H, Calcium Level 9.2 Height (Feet): 5 Height (Inches): 9.00 Weight (Pounds): 219 General Appearance: lethargic EENT: normal ENT inspection Neck: normal alignment Cardiovascular: normal peripheral pulses, normal rate, regular rhythm Respiratory/Chest: chest wall non-tender, lungs clear, normal breath sounds Abdomen: normal bowel sounds, non tender, soft Extremities: normal inspection Edema: no edema noted Arm (L), no edema noted Arm (R), no edema noted Leg (L), no edema noted Leg (R), no edema noted Pedal (L), no edema noted Pedal (R), no edema noted Generalized Neurologic: motor weakness Skin: normal pigmentation, warm/dry Tee Novoa DO Sep 12, 2019 14:44
--- NOTE | 2019-09-12 14:50 | Infectious Diseases Prog Note ---
Assessment/Plan Assessment/Plan Assessment: Seizure breakthrough, multiple episodes Afebrile No leukocytosis UTI (frequency) -u/a wbc 10-15, nit neg, leuk +2; ucx >100k E.coli (R cipro/levo) TRAE, improving HTN DM2 seizure disorder on Keppra CVA x3 w/ resultant R side weakness Plan: -Continue empiric Ceftriaxone #3/5-7 for UTI -f/u cx -Monitor CBC/CMP, temperatures -Neuro eval -aspiration precautions Thank you for this consultation. Will continue to follow along with you. Discussed with RN Subjective Allergies: Coded Allergies: No Known Allergies (Unverified , 07/28/14) Subjective afebrile no leukocytosis Objective Vital Signs Last 24 Hour Vital Signs Date Time Temp Pulse Resp B/P (MAP) Pulse Ox O2 Delivery O2 Flow Rate FiO2 09/12/19 12:53 105/69 09/12/19 12:00 60 09/12/19 12:00 98.0 62 20 105/69 (81) 99 09/12/19 09:02 122/79 09/12/19 09:02 62 122/79 09/12/19 09:00 Room Air 09/12/19 08:00 61 09/12/19 08:00 98.2 62 20 122/79 (93) 99 09/12/19 06:00 140/75 09/12/19 04:00 60 09/12/19 04:00 97.2 63 19 139/88 (105) 96 09/12/19 00:00 68 09/12/19 00:00 97.2 60 18 115/74 (88) 95 09/11/19 22:00 123/80 09/11/19 22:00 60 123/80 09/11/19 21:55 123/80 (94) 09/11/19 21:00 123/80 09/11/19 21:00 Room Air 09/11/19 20:00 97.5 60 16 120/76 (91) 94 09/11/19 20:00 64 09/11/19 16:00 97.5 67 19 110/76 (87) 94 09/11/19 16:00 62 Height (Feet): 5 Height (Inches): 9.00 Weight (Pounds): 219 Objective General Appearance: normal inspection, well appearing, no apparent distress, alert, Chronically Ill Head: atraumatic ENT: normal ENT inspection, hearing grossly normal, normal voice Neck: normal inspection, full range of motion, supple, no bony tend Respiratory: normal inspection, lungs clear, normal breath sounds, no respiratory distress, no retraction, no wheezing Cardiovascular regular rate, rhythm, no edema Gastrointestinal: normal inspection, normal bowel sounds, non tender, soft, no guarding, no hernia Genitourinary: no CVA tenderness Musculoskeletal: normal inspection, back normal, normal range of motion 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, 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, motor weakness - dense right hemiplegia, responsive, aphasia - expressive Skin: no rash Microbiology Date/Time Source Procedure Growth Status 09/10/19 15:15 Urine,Clean Catch Urine Culture - Final Escherichia Coli Complete Laboratory Tests Test 09/12/19 06:38 White Blood Count 5.9 K/UL (4.8-10.8) Red Blood Count 4.47 M/UL (4.70-6.10) L Hemoglobin 13.0 G/DL (14.2-18.0) L Hematocrit 38.9 % (42.0-52.0) L Mean Corpuscular Volume 87 FL (80-99) Mean Corpuscular Hemoglobin 29.1 PG (27.0-31.0) Mean Corpuscular Hemoglobin Concent 33.4 G/DL (32.0-36.0) Red Cell Distribution Width 12.0 % (11.6-14.8) Platelet Count 208 K/UL (150-450) Mean Platelet Volume 8.1 FL (6.5-10.1) Neutrophils (%) (Auto) 63.7 % (45.0-75.0) Lymphocytes (%) (Auto) 18.9 % (20.0-45.0) L Monocytes (%) (Auto) 9.4 % (1.0-10.0) Eosinophils (%) (Auto) 6.4 % (0.0-3.0) H Basophils (%) (Auto) 1.7 % (0.0-2.0) Sodium Level 142 MMOL/L (136-145) Potassium Level 3.9 MMOL/L (3.5-5.1) Chloride Level 105 MMOL/L (98-107) Carbon Dioxide Level 28 MMOL/L (21-32) Anion Gap 9 mmol/L (5-15) Blood Urea Nitrogen 13 mg/dL (7-18) Creatinine 1.0 MG/DL (0.55-1.30) Estimat Glomerular Filtration Rate mL/min (>60) Glucose Level 214 MG/DL (74-106) H Calcium Level 9.2 MG/DL (8.5-10.1) Current Medications Medications (Trade) Dose Ordered Sig/Wiley Route PRN Reason Start Time Stop Time Status Last Admin Dose Admin Acetaminophen (Tylenol) 650 mg Q4H PRN ORAL Mild Pain/Temp > 100.5 09/10/19 20:45 10/10/19 20:44 Atorvastatin Calcium (Lipitor) 10 mg BEDTIME ORAL 09/11/19 21:00 10/11/19 20:59 09/11/19 21:57 Carvedilol (Coreg) 25 mg EVERY 12 HOURS ORAL 09/10/19 21:00 10/10/19 20:59 09/12/19 09:02 Ceftriaxone Sodium 1 gm/ Dextrose 55 ml @ 110 mls/hr Q24H IVPB 09/11/19 17:00 09/18/19 16:59 09/11/19 17:11 Dextrose/Sodium Chloride 1,000 ml @ 60 mls/hr [id number] IV 09/10/19 21:15 10/10/19 21:14 09/12/19 07:31 Furosemide (Lasix) 20 mg DAILY ORAL 09/11/19 09:00 10/11/19 08:59 09/12/19 09:01 Gabapentin (Neurontin) 300 mg THREE TIMES A DAY ORAL 09/11/19 09:00 10/11/19 08:59 09/12/19 12:53 Heparin Sodium (Porcine) (Heparin 5000 units/ml) 5,000 units EVERY 12 HOURS SUBQ 09/10/19 21:00 10/10/19 20:59 09/12/19 09:03 Hydralazine HCl (Apresoline) 100 mg Q8HR ORAL 09/11/19 14:00 10/11/19 13:59 09/12/19 06:00 Levetiracetam (Keppra) 1,000 mg Q12HR ORAL 09/10/19 21:00 10/10/19 20:59 09/12/19 09:02 Lisinopril (PriniviL) 20 mg Q12HR ORAL 09/11/19 09:00 10/10/19 20:59 09/12/19 09:02 Lorazepam (Ativan 2mg/ml 1ml) 1 mg Q4H PRN IV For Anxiety 09/10/19 20:45 09/17/19 20:44 Multivitamins (Multivitamins) 1 tab DAILY ORAL 09/11/19 09:00 10/11/19 08:59 09/12/19 09:02 Nitroglycerin (Ntg) 0.4 mg Q5M PRN SL Prn Chest Pain 09/10/19 20:45 10/10/19 20:44 Spironolactone (Aldactone) 25 mg DAILY ORAL 09/11/19 09:00 10/11/19 08:59 09/12/19 09:02 Tamsulosin HCl (Flomax) 0.4 mg BEDTIME ORAL 09/10/19 21:00 10/10/19 20:59 09/11/19 21:58 Sujatha Sanchez M.D. Sep 12, 2019 14:50
[2019-09-12 16:00] VITALS: BP 124/74
[2019-09-12] MEDS: cefTRIAXone 1 GM in D5W 55 ML IVPB SCH (16:30)
--- NOTE | 2019-09-12 19:30 | NUR ---
HAND-OFF: Report given to Mihir JIMENEZ. Patient stable. Plan of care endorsed.
--- NOTE | 2019-09-12 19:30 | NUR ---
NURSE NOTES: Report received from Svetlana Godfrey RN. Pt in stable condition and plan of care endorsed.
[2019-09-12 20:00] VITALS: BP 102/66
[2019-09-12] MEDS: Tamsulosin 0.4mg cap ORAL SCH (21:06)
[2019-09-13] VITALS: BP 111/59
[2019-09-13 04:00] VITALS: BP 119/61
[2019-09-13] MEDS: HydrALAZINE 50mg tab ORAL SCH ×3 (06:00→21:31)
[2019-09-13 07:01] LABS: BASOPHILS % (AUTO) 0.9 % (0.0-2.0); EOSINOPHILS % (AUTO) 7.7 % (0.0-3.0); HEMATOCRIT 38.3 % (42.0-52.0); HEMOGLOBIN 12.7 G/DL (14.2-18.0); LYMPHOCYTES % (AUTO) 21.6 % (20.0-45.0); MEAN CORPUSCULAR VOLUME 88 FL (80-99); MONOCYTES % (AUTO) 12.1 % (1.0-10.0); NEUTROPHILS % (AUTO) 57.8 % (45.0-75.0); PLATELET COUNT 190 K/UL (150-450); RED BLOOD COUNT 4.35 M/UL (4.70-6.10); RED CELL DISTRIBUTION WIDTH 12.1 % (11.6-14.8); WHITE BLOOD COUNT 5.7 K/UL (4.8-10.8)
[2019-09-13 07:07] LABS: ANION GAP 6 mmol/L (5-15); BLOOD UREA NITROGEN 14 mg/dL (7-18); CALCIUM 9.2 MG/DL (8.5-10.1); CARBON DIOXIDE 31 MMOL/L (21-32); CHLORIDE 105 MMOL/L (98-107); POTASSIUM 4.3 MMOL/L (3.5-5.1); SODIUM 142 MMOL/L (136-145)
--- NOTE | 2019-09-13 07:36 | NUR ---
HAND-OFF: Report given to Svetlana Godfrey RN. Pt in stable condition and plan of care endorsed.
--- NOTE | 2019-09-13 07:47 | NUR ---
NURSE NOTES: Patient stable, eating breakfast at this time. No complaints at this time. No s/sx of distress. RR even and unlabored on RA. IV fluids infusing. Side rails upx2, call light within reach, bed low and locked. Will continue to monitor.
[2019-09-13 08:00] VITALS: BP 111/76
[2019-09-13] MEDS: Lisinopril 20mg tab ORAL SCH ×2 (09:00→21:30)
--- NOTE | 2019-09-13 09:13 | General Progress Note ---
Assessment/Plan Problem List: (1) Sepsis ICD Codes: A41.9 - Sepsis, unspecified organism SNOMED: 04757356 (2) Urinary tract infection ICD Codes: N39.0 - Urinary tract infection, site not specified SNOMED: 80128614 (3) Recurrent seizures ICD Codes: G40.909 - Epilepsy, unspecified, not intractable, without status epilepticus SNOMED: 02965615, 10996879 (4) History of CVA with residual deficit ICD Codes: I69.30 - Unspecified sequelae of cerebral infarction SNOMED: 927492639 Status: stable, progressing Assessment/Plan: seizure control pt diet eval cbc bmp am dc if clear Subjective Constitutional: Reports: weakness Allergies: Coded Allergies: No Known Allergies (Unverified , 07/28/14) All Systems: reviewed and negative except above Subjective sitting calm no seizure last night Objective Last 24 Hour Vital Signs Date Time Temp Pulse Resp B/P (MAP) Pulse Ox O2 Delivery O2 Flow Rate FiO2 09/13/19 08:08 Room Air 09/13/19 06:00 110/70 09/13/19 04:00 71 09/13/19 04:00 97.4 73 18 119/61 (80) 97 09/13/19 00:00 64 09/13/19 00:00 97.3 64 18 111/59 (76) 97 09/12/19 22:00 106/59 09/12/19 21:16 105/66 09/12/19 21:00 Room Air 09/12/19 20:00 63 09/12/19 20:00 97.5 67 20 102/66 (78) 99 09/12/19 16:00 60 09/12/19 16:00 98.3 61 20 124/74 (91) 99 09/12/19 12:53 105/69 09/12/19 12:00 60 09/12/19 12:00 98.0 62 20 105/69 (81) 99 Intake and Output 09/12/19 09/13/19 19:00 07:00 Intake Total 1200 ml Output Total 800 ml Balance 400 ml Intake Oral 1200 ml Output Urine Total 800 ml # Voids 3 Laboratory Tests 09/13/19 05:40: White Blood Count 5.7, Red Blood Count 4.35L, Hemoglobin 12.7L, Hematocrit 38.3L , Mean Corpuscular Volume 88, Mean Corpuscular Hemoglobin 29.2, Mean Corpuscular Hemoglobin Concent 33.1, Red Cell Distribution Width 12.1, Platelet Count 190, Mean Platelet Volume 7.6, Neutrophils (%) (Auto) 57.8, Lymphocytes (% ) (Auto) 21.6, Monocytes (%) (Auto) 12.1H, Eosinophils (%) (Auto) 7.7H, Basophils (%) (Auto) 0.9, Sodium Level 142, Potassium Level 4.3, Chloride Level 105, Carbon Dioxide Level 31, Anion Gap 6, Blood Urea Nitrogen 14, Creatinine 1.0, Estimat Glomerular Filtration Rate , Glucose Level 187H, Calcium Level 9.2 Height (Feet): 5 Height (Inches): 9.00 Weight (Pounds): 219 General Appearance: lethargic EENT: normal ENT inspection Neck: normal alignment Cardiovascular: normal peripheral pulses, normal rate, regular rhythm Respiratory/Chest: chest wall non-tender, lungs clear, normal breath sounds Abdomen: normal bowel sounds, non tender, soft Extremities: normal inspection Edema: no edema noted Arm (L), no edema noted Arm (R), no edema noted Leg (L), no edema noted Leg (R), no edema noted Pedal (L), no edema noted Pedal (R), no edema noted Generalized Neurologic: motor weakness Skin: normal pigmentation, warm/dry Tee Novoa DO Sep 13, 2019 09:13
[2019-09-13] MEDS: Spironolactone 25mg tab ORAL SCH (09:14)
[2019-09-13] MEDS: Carvedilol 25mg Tab ORAL SCH ×2 (09:15→21:30)
[2019-09-13] MEDS: Heparin 5000 units/ml inj SUBQ SCH ×2 (09:25→21:34)
--- NOTE | 2019-09-13 11:43 | NUR ---
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 CURRENT DIET: MAMADOU mech soft chopped PO DIET RECOMMENDATIONS: Maintain Cardiac diet ADDITIONAL RECOMMENDATIONS: 1) Check A1C -> pt w/elev BG (187-214) 2) Daily wts on lasix; standing preferred as able 3) On lasix> check lytes daily
[2019-09-13 12:00] VITALS: BP_SYST 118; BP_SYST 134; BP_DIAS 74; BP_DIAS 91
--- NOTE | 2019-09-13 13:03 | NUR ---
*-*DISCHRAGE PLANNING*-* PATIENT HAS BEEN REFERRED TO: [facility] P: [phone] F: [phone]
[2019-09-13 16:00] VITALS: BP 122/80
[2019-09-13] MEDS: D5 1/2NS 1,000 ML IV SCH (17:16)
[2019-09-13] MEDS: cefTRIAXone 1 GM in D5W 55 ML IVPB SCH (17:16)
--- NOTE | 2019-09-13 17:20 | Infectious Diseases Prog Note ---
Assessment/Plan Assessment/Plan Assessment: Seizure breakthrough, multiple episodes Afebrile No leukocytosis UTI (frequency) -u/a wbc 10-15, nit neg, leuk +2; ucx >100k E.coli (R cipro/levo) TRAE, improving HTN DM2 seizure disorder on Keppra CVA x3 w/ resultant R side weakness Plan: -Continue empiric Ceftriaxone #4/5-7 for UTI -f/u cx -Monitor CBC/CMP, temperatures -Neuro eval -aspiration precautions Thank you for this consultation. Will continue to follow along with you. Discussed with RN Subjective Allergies: Coded Allergies: No Known Allergies (Unverified , 07/28/14) Subjective afebrile no leukocytosis Objective Vital Signs Last 24 Hour Vital Signs Date Time Temp Pulse Resp B/P (MAP) Pulse Ox O2 Delivery O2 Flow Rate FiO2 09/13/19 14:00 118/74 09/13/19 12:00 61 09/13/19 12:00 97.1 63 18 118/74 (89) 96 09/13/19 09:15 71 111/76 09/13/19 09:00 111/76 09/13/19 08:08 Room Air 09/13/19 08:00 98.0 71 18 111/76 (88) 95 09/13/19 08:00 75 09/13/19 06:00 110/70 09/13/19 04:00 71 09/13/19 04:00 97.4 73 18 119/61 (80) 97 09/13/19 00:00 64 09/13/19 00:00 97.3 64 18 111/59 (76) 97 09/12/19 22:00 106/59 09/12/19 21:16 105/66 09/12/19 21:00 Room Air 09/12/19 20:00 63 09/12/19 20:00 97.5 67 20 102/66 (78) 99 Height (Feet): 5 Height (Inches): 9.00 Weight (Pounds): 219 Objective General Appearance: normal inspection, well appearing, no apparent distress, alert, Chronically Ill Head: atraumatic ENT: normal ENT inspection, hearing grossly normal, normal voice Neck: normal inspection, full range of motion, supple, no bony tend Respiratory: normal inspection, lungs clear, normal breath sounds, no respiratory distress, no retraction, no wheezing Cardiovascular regular rate, rhythm, no edema Gastrointestinal: normal inspection, normal bowel sounds, non tender, soft, no guarding, no hernia Genitourinary: no CVA tenderness Musculoskeletal: normal inspection, back normal, normal range of motion 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 Complete Laboratory Tests Test 09/13/19 05:40 White Blood Count 5.7 K/UL (4.8-10.8) Red Blood Count 4.35 M/UL (4.70-6.10) L Hemoglobin 12.7 G/DL (14.2-18.0) L Hematocrit 38.3 % (42.0-52.0) L Mean Corpuscular Volume 88 FL (80-99) Mean Corpuscular Hemoglobin 29.2 PG (27.0-31.0) Mean Corpuscular Hemoglobin Concent 33.1 G/DL (32.0-36.0) Red Cell Distribution Width 12.1 % (11.6-14.8) Platelet Count 190 K/UL (150-450) Mean Platelet Volume 7.6 FL (6.5-10.1) Neutrophils (%) (Auto) 57.8 % (45.0-75.0) Lymphocytes (%) (Auto) 21.6 % (20.0-45.0) Monocytes (%) (Auto) 12.1 % (1.0-10.0) H Eosinophils (%) (Auto) 7.7 % (0.0-3.0) H Basophils (%) (Auto) 0.9 % (0.0-2.0) Sodium Level 142 MMOL/L (136-145) Potassium Level 4.3 MMOL/L (3.5-5.1) Chloride Level 105 MMOL/L (98-107) Carbon Dioxide Level 31 MMOL/L (21-32) Anion Gap 6 mmol/L (5-15) Blood Urea Nitrogen 14 mg/dL (7-18) Creatinine 1.0 MG/DL (0.55-1.30) Estimat Glomerular Filtration Rate mL/min (>60) Glucose Level 187 MG/DL (74-106) H Calcium Level 9.2 MG/DL (8.5-10.1) Current Medications Medications (Trade) Dose Ordered Sig/Wiley Route PRN Reason Start Time Stop Time Status Last Admin Dose Admin Acetaminophen (Tylenol) 650 mg Q4H PRN ORAL Mild Pain/Temp > 100.5 09/10/19 20:45 10/10/19 20:44 Atorvastatin Calcium (Lipitor) 10 mg BEDTIME ORAL 09/11/19 21:00 10/11/19 20:59 09/12/19 21:06 Carvedilol (Coreg) 25 mg EVERY 12 HOURS ORAL 09/10/19 21:00 10/10/19 20:59 09/13/19 09:15 Ceftriaxone Sodium 1 gm/ Dextrose 55 ml @ 110 mls/hr Q24H IVPB 09/11/19 17:00 09/18/19 16:59 09/13/19 17:16 Dextrose/Sodium Chloride 1,000 ml @ 60 mls/hr [id number] IV 09/10/19 21:15 10/10/19 21:14 09/13/19 17:16 Furosemide (Lasix) 20 mg DAILY ORAL 09/11/19 09:00 10/11/19 08:59 09/13/19 09:15 Gabapentin (Neurontin) 300 mg THREE TIMES A DAY ORAL 09/11/19 09:00 10/11/19 08:59 09/13/19 17:17 Heparin Sodium (Porcine) (Heparin 5000 units/ml) 5,000 units EVERY 12 HOURS SUBQ 09/10/19 21:00 10/10/19 20:59 09/13/19 09:25 Hydralazine HCl (Apresoline) 100 mg Q8HR ORAL 09/11/19 14:00 10/11/19 13:59 09/13/19 06:00 Levetiracetam (Keppra) 1,000 mg Q12HR ORAL 09/10/19 21:00 10/10/19 20:59 09/13/19 09:15 Lisinopril (PriniviL) 20 mg Q12HR ORAL 09/11/19 09:00 10/10/19 20:59 09/12/19 21:16 Lorazepam (Ativan 2mg/ml 1ml) 1 mg Q4H PRN IV For Anxiety 09/10/19 20:45 09/17/19 20:44 Multivitamins (Multivitamins) 1 tab DAILY ORAL 09/11/19 09:00 10/11/19 08:59 09/13/19 09:15 Nitroglycerin (Ntg) 0.4 mg Q5M PRN SL Prn Chest Pain 09/10/19 20:45 10/10/19 20:44 Spironolactone (Aldactone) 25 mg DAILY ORAL 09/11/19 09:00 10/11/19 08:59 09/13/19 09:14 Tamsulosin HCl (Flomax) 0.4 mg BEDTIME ORAL 09/10/19 21:00 10/10/19 20:59 09/12/19 21:06 Sujatha Sanchez M.D. Sep 13, 2019 17:20
--- NOTE | 2019-09-13 19:48 | NUR ---
HAND-OFF: Report given to Ildefonso Benavides.Patient stable. Plan of care endorsed.
[2019-09-13 20:00] VITALS: BP 112/65
[2019-09-13] MEDS: Tamsulosin 0.4mg cap ORAL SCH (21:30)
[2019-09-14] VITALS: BP 114/71
[2019-09-14 04:00] VITALS: BP 118/70
[2019-09-14] MEDS: HydrALAZINE 50mg tab ORAL SCH (07:04)
[2019-09-14 07:27] LABS: ANION GAP 8 mmol/L (5-15); BASOPHILS % (AUTO) 2.1 % (0.0-2.0); BLOOD UREA NITROGEN 12 mg/dL (7-18); CALCIUM 9.3 MG/DL (8.5-10.1); CARBON DIOXIDE 29 MMOL/L (21-32); CHLORIDE 105 MMOL/L (98-107); HEMATOCRIT 38.2 % (42.0-52.0); HEMOGLOBIN 13.1 G/DL (14.2-18.0); LYMPHOCYTES % (AUTO) 22.7 % (20.0-45.0); MEAN CORPUSCULAR VOLUME 87 FL (80-99); MONOCYTES % (AUTO) 12.9 % (1.0-10.0); NEUTROPHILS % (AUTO) 53.3 % (45.0-75.0); PLATELET COUNT 190 K/UL (150-450); POTASSIUM 4.2 MMOL/L (3.5-5.1); RED BLOOD COUNT 4.37 M/UL (4.70-6.10); RED CELL DISTRIBUTION WIDTH 12.4 % (11.6-14.8); SODIUM 142 MMOL/L (136-145); WHITE BLOOD COUNT 5.3 K/UL (4.8-10.8)
--- NOTE | 2019-09-14 07:42 | NUR ---
NURSE NOTES: Patient stable AOx3. No s/sx of distress. RR even and unlabored on RA. Patient upset that he did not get his breakfast tray. Kitchen called. Side rails upx2, call light within reach, bed low and locked. Will continue to monitor.
[2019-09-14 08:00] VITALS: BP 127/77
[2019-09-14] MEDS: D5 1/2NS 1,000 ML IV SCH (08:22)
--- NOTE | 2019-09-14 08:39 | NUR ---
NURSE NOTES: Spoke with Dr. Novoa regarding discharge. Patient cannot be discharge without clearance from Dr. Valentine. Message left for Dr. Valentine.
--- NOTE | 2019-09-14 09:19 | General Progress Note ---
Assessment/Plan Problem List: (1) Sepsis ICD Codes: A41.9 - Sepsis, unspecified organism SNOMED: 88649645 (2) Urinary tract infection ICD Codes: N39.0 - Urinary tract infection, site not specified SNOMED: 12525417 (3) Recurrent seizures ICD Codes: G40.909 - Epilepsy, unspecified, not intractable, without status epilepticus SNOMED: 07129443, 85068790 (4) History of CVA with residual deficit ICD Codes: I69.30 - Unspecified sequelae of cerebral infarction SNOMED: 606979514 Status: stable, progressing Assessment/Plan: seizure control pt diet eval cbc bmp am dc if clear Subjective Constitutional: Reports: weakness Allergies: Coded Allergies: No Known Allergies (Unverified , 07/28/14) All Systems: reviewed and negative except above Subjective sitting calm sleepy Objective Last 24 Hour Vital Signs Date Time Temp Pulse Resp B/P (MAP) Pulse Ox O2 Delivery O2 Flow Rate FiO2 09/14/19 08:21 Room Air 09/14/19 07:04 118/70 09/14/19 04:00 64 09/14/19 04:00 98.0 60 18 118/70 (86) 97 09/14/19 00:00 60 09/14/19 00:00 98.8 61 18 114/71 (85) 97 09/13/19 21:31 112/65 09/13/19 21:30 112/65 09/13/19 21:30 68 112/65 09/13/19 21:00 Room Air 09/13/19 20:00 97.9 68 18 112/65 (81) 95 09/13/19 20:00 65 09/13/19 16:00 97.5 70 19 122/80 (94) 97 09/13/19 16:00 62 09/13/19 14:00 118/74 09/13/19 12:00 61 09/13/19 12:00 97.1 63 18 118/74 (89) 96 Intake and Output 09/13/19 09/14/19 19:00 07:00 Intake Total 1000 ml Balance 1000 ml Intake Oral 1000 ml # Voids 9 3 # Bowel Movements 1 Laboratory Tests 09/14/19 06:30: White Blood Count 5.3, Red Blood Count 4.37L, Hemoglobin 13.1L, Hematocrit 38.2L , Mean Corpuscular Volume 87, Mean Corpuscular Hemoglobin 29.9, Mean Corpuscular Hemoglobin Concent 34.2, Red Cell Distribution Width 12.4, Platelet Count 190, Mean Platelet Volume 7.9, Neutrophils (%) (Auto) 53.3, Lymphocytes (% ) (Auto) 22.7, Monocytes (%) (Auto) 12.9H, Eosinophils (%) (Auto) 9.0H, Basophils (%) (Auto) 2.1H, Sodium Level 142, Potassium Level 4.2, Chloride Level 105, Carbon Dioxide Level 29, Anion Gap 8, Blood Urea Nitrogen 12, Creatinine 1.0, Estimat Glomerular Filtration Rate , Glucose Level 198H, Calcium Level 9.3 Height (Feet): 5 Height (Inches): 9.00 Weight (Pounds): 219 General Appearance: lethargic EENT: normal ENT inspection Neck: normal alignment Cardiovascular: normal peripheral pulses, normal rate, regular rhythm Respiratory/Chest: chest wall non-tender, lungs clear, normal breath sounds Abdomen: normal bowel sounds, non tender, soft Extremities: normal inspection Edema: no edema noted Arm (L), no edema noted Arm (R), no edema noted Leg (L), no edema noted Leg (R), no edema noted Pedal (L), no edema noted Pedal (R), no edema noted Generalized Neurologic: motor weakness Skin: normal pigmentation, warm/dry Tee Novoa DO Sep 14, 2019 09:19
[2019-09-14] MEDS: Spironolactone 25mg tab ORAL SCH (09:28)
[2019-09-14] MEDS: Heparin 5000 units/ml inj SUBQ SCH (09:28)
[2019-09-14] MEDS: Carvedilol 25mg Tab ORAL SCH (09:29)
[2019-09-14] MEDS: Lisinopril 20mg tab ORAL SCH (09:29)
[2019-09-14] MEDS ORDERED: BACTRIM DS TAB1 EAC1 ORAL (10:17)
--- NOTE | 2019-09-14 11:40 | Infectious Diseases Prog Note ---
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 Will continue to follow along with you. Discussed with RN Subjective Allergies: Coded Allergies: No Known Allergies (Unverified , 07/28/14) Subjective afebrile no leukocytosis Objective Vital Signs Last 24 Hour Vital Signs Date Time Temp Pulse Resp B/P (MAP) Pulse Ox O2 Delivery O2 Flow Rate FiO2 09/14/19 09:29 127/77 09/14/19 09:29 72 127/77 09/14/19 08:21 Room Air 09/14/19 08:00 65 09/14/19 08:00 98.2 72 18 127/77 (94) 95 09/14/19 07:04 118/70 09/14/19 04:00 64 09/14/19 04:00 98.0 60 18 118/70 (86) 97 09/14/19 00:00 60 09/14/19 00:00 98.8 61 18 114/71 (85) 97 09/13/19 21:31 112/65 09/13/19 21:30 112/65 09/13/19 21:30 68 112/65 09/13/19 21:00 Room Air 09/13/19 20:00 97.9 68 18 112/65 (81) 95 09/13/19 20:00 65 09/13/19 16:00 97.5 70 19 122/80 (94) 97 09/13/19 16:00 62 09/13/19 14:00 118/74 09/13/19 12:00 61 09/13/19 12:00 97.1 63 18 118/74 (89) 96 Height (Feet): 5 Height (Inches): 9.00 Weight (Pounds): 219 Objective General Appearance: normal inspection, well appearing, no apparent distress, alert, Chronically Ill Head: atraumatic ENT: normal ENT inspection, hearing grossly normal, normal voice Neck: normal inspection, full range of motion, supple, no bony tend Respiratory: normal inspection, lungs clear, normal breath sounds, no respiratory distress, no retraction, no wheezing Cardiovascular regular rate, rhythm, no edema Gastrointestinal: normal inspection, normal bowel sounds, non tender, soft, no guarding, no hernia Genitourinary: no CVA tenderness Musculoskeletal: normal inspection, back normal, normal range of motion 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, 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 as tested, motor weakness - dense right hemiplegia, responsive, aphasia - expressive Skin: no rash Laboratory Tests Test 09/14/19 06:30 White Blood Count 5.3 K/UL (4.8-10.8) Red Blood Count 4.37 M/UL (4.70-6.10) L Hemoglobin 13.1 G/DL (14.2-18.0) L Hematocrit 38.2 % (42.0-52.0) L Mean Corpuscular Volume 87 FL (80-99) Mean Corpuscular Hemoglobin 29.9 PG (27.0-31.0) Mean Corpuscular Hemoglobin Concent 34.2 G/DL (32.0-36.0) Red Cell Distribution Width 12.4 % (11.6-14.8) Platelet Count 190 K/UL (150-450) Mean Platelet Volume 7.9 FL (6.5-10.1) Neutrophils (%) (Auto) 53.3 % (45.0-75.0) Lymphocytes (%) (Auto) 22.7 % (20.0-45.0) Monocytes (%) (Auto) 12.9 % (1.0-10.0) H Eosinophils (%) (Auto) 9.0 % (0.0-3.0) H Basophils (%) (Auto) 2.1 % (0.0-2.0) H Sodium Level 142 MMOL/L (136-145) Potassium Level 4.2 MMOL/L (3.5-5.1) Chloride Level 105 MMOL/L (98-107) Carbon Dioxide Level 29 MMOL/L (21-32) Anion Gap 8 mmol/L (5-15) Blood Urea Nitrogen 12 mg/dL (7-18) Creatinine 1.0 MG/DL (0.55-1.30) Estimat Glomerular Filtration Rate mL/min (>60) Glucose Level 198 MG/DL (74-106) H Calcium Level 9.3 MG/DL (8.5-10.1) Current Medications Medications (Trade) Dose Ordered Sig/Wiley Route PRN Reason Start Time Stop Time Status Last Admin Dose Admin Acetaminophen (Tylenol) 650 mg Q4H PRN ORAL Mild Pain/Temp > 100.5 09/10/19 20:45 10/10/19 20:44 Atorvastatin Calcium (Lipitor) 10 mg BEDTIME ORAL 09/11/19 21:00 10/11/19 20:59 09/13/19 21:30 Carvedilol (Coreg) 25 mg EVERY 12 HOURS ORAL 09/10/19 21:00 10/10/19 20:59 09/14/19 09:29 Ceftriaxone Sodium 1 gm/ Dextrose 55 ml @ 110 mls/hr Q24H IVPB 09/11/19 17:00 09/18/19 16:59 09/13/19 17:16 Dextrose/Sodium Chloride 1,000 ml @ 60 mls/hr [id number] IV 09/10/19 21:15 10/10/19 21:14 09/13/19 17:16 Furosemide (Lasix) 20 mg DAILY ORAL 09/11/19 09:00 10/11/19 08:59 09/14/19 09:28 Gabapentin (Neurontin) 300 mg THREE TIMES A DAY ORAL 09/11/19 09:00 10/11/19 08:59 09/14/19 09:28 Heparin Sodium (Porcine) (Heparin 5000 units/ml) 5,000 units EVERY 12 HOURS SUBQ 09/10/19 21:00 10/10/19 20:59 09/14/19 09:28 Hydralazine HCl (Apresoline) 100 mg Q8HR ORAL 09/11/19 14:00 10/11/19 13:59 09/14/19 07:04 Levetiracetam (Keppra) 1,000 mg Q12HR ORAL 09/10/19 21:00 10/10/19 20:59 09/14/19 09:28 Lisinopril (PriniviL) 20 mg Q12HR ORAL 09/11/19 09:00 10/10/19 20:59 09/14/19 09:29 Lorazepam (Ativan 2mg/ml 1ml) 1 mg Q4H PRN IV For Anxiety 09/10/19 20:45 09/17/19 20:44 Multivitamins (Multivitamins) 1 tab DAILY ORAL 09/11/19 09:00 10/11/19 08:59 09/14/19 09:28 Nitroglycerin (Ntg) 0.4 mg Q5M PRN SL Prn Chest Pain 09/10/19 20:45 10/10/19 20:44 Spironolactone (Aldactone) 25 mg DAILY ORAL 09/11/19 09:00 10/11/19 08:59 09/14/19 09:28 Tamsulosin HCl (Flomax) 0.4 mg BEDTIME ORAL 09/10/19 21:00 10/10/19 20:59 09/13/19 21:30 Sujatha Sanchez M.D. Sep 14, 2019 11:40
[2019-09-14 12:00] VITALS: BP 122/75
--- NOTE | 2019-09-14 13:47 | NUR ---
NURSE NOTES: Patient discharged. All belongings with patient including clothes and upper and lower dentures. No s/sx of distress. Patient stable. VSS. Report given to Nidhi at [facility].
--- NOTE | 2019-09-14 20:15 | Consultation ---
DATE OF CONSULTATION: INTERNAL MEDICINE CONSULTATION CONSULTING PHYSICIAN: Mike Montalvo M.D. HISTORY OF PRESENT ILLNESS: This is a 69-year-old male with a history of hypertension, diabetes mellitus, seizure disorder, previous CVA, who is a [facility]. He was sent to the hospital after a breakthrough seizure. The patient has been monitored in the hospital for the last 48 hours. He has remained seizure free after receiving Keppra in the hospital. He has also been found to have E. coli sensitive to all medications except fluoroquinolones. He has been on Rocephin. He has no further leukocytosis or fever. At this time, he states he is feeling well. HOME MEDICATIONS: Coreg, Lasix, Neurontin, hydralazine, Keppra, lisinopril, Claritin, Zocor, Aldactone and Flomax. REVIEW OF SYSTEMS: Denies any headaches, hematemesis, melena, hematochezia, weight loss. SOCIAL HISTORY: He is a [facility] resident. PHYSICAL EXAMINATION: GENERAL: Reveals a 69-year-old male. HEENT: Unremarkable. LUNGS: Clear breath sounds bilaterally with normal heart sounds. ABDOMEN: Soft. EXTREMITIES: There is no edema. LABORATORY DATA: Lab testing shows normal CBC and BMP. Glucose is 198. Urine culture discussed above. Imaging studies, x-ray chest is negative. IMPRESSION: 1. Seizure disorder, controlled now on Keppra. 2. UTI with E. coli. DISCUSSION: The patient is stable and seizure free for the last 2 days. 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 Tee Novoa. The patient is comfortable and afebrile. I will switch him to oral Bactrim and discharge back to nursing facility. He has been seizure free for 48 hours. Mike Montalvo M.D. DR: MARIELLE JOB#: [id number] CC:
--- NOTE | 2019-09-16 08:24 | Discharge Summary ---
Discharge Summary Discharge Summary _ DATE OF ADMISSION: 09/10/2019 DATE OF DISCHARGE: 09/14/2019 DISCHARGED BY: Dr. Novoa REASON FOR ADMISSION: 69 years old male with past medical history of hypertension, COPD, CVA with right-sided weakness, seizure disorder, was brought by ambulance after multiply seizure episodes. Laboratory work-up revealed no leukocytosis, stable hemoglobin and hematocrit. Stable electrolytes. BUN 14, creatinine 1.3. Glucose 161. Stable LFT. Troponin negative. Urinalysis revealed evidence of UTI. Chest x-ray demonstrated no definite acute process. Cardiomegaly. In emergency department patient received IV Keppra, started on empiric antibiotics and admitted for further management. CONSULTANTS: pulmonary Dr. Katia MACARIO specialist Dr. Sanchez [facility] COURSE: Patient admitted to telemetry floor. Seizure precautions maintained. Patient was on Keppra. Patient was working with physical therapist . No further seizure activities. DVT prophylaxis provided. Patient started on empiric antibiotic . Urine culture revealed E. coli. Antibiotic continued to complete the course. Patient remained afebrile no leukocytosis. Aspiration precaution maintained.. Statin continued. Blood pressure was managed with the current regimen and remained stable. Renal parameters were closely monitored, creatinine down to 1.0. Patient clinically stabilized and was ready for transfer back to half-way facility for continuation of care FINAL DIAGNOSES: Recurrent seizure with seizure breakthrough, multiply episodes E. coli UTI History of CVA x3 with residual R sided deficit Acute kidney injury Hypertension Diabetes mellitus type 2 DISCHARGE MEDICATIONS: See Medication Reconciliation list. DISCHARGE INSTRUCTIONS: Patient was discharged to the half-way facility. Follow up with medical doctor at the facility. I have been assigned to dictate discharge summary for this account. I was not involved in the patient's management. Kirsten Nicole NP Sep 16, 2019 08:24
--- NOTE | 2019-09-16 10:03 | NUR ---
*-* NO INSURANCE INFORMATION IN THE BAR UNABLE TO SEND CLINICALS OR REVIEWS *-*
== END 2019-09-14 13:53 | DRG 101 ==
LOC: EDBD 14:19 → EMR 14:40 → 2E 16:16 → EDBEDREQ 18:14
DX: G40.909 Epilepsy, unspecified, not intractable, without status epilepticus (principal); N39.0 Urinary tract infection, site not specified; N17.9 Acute kidney failure, unspecified; I69.351 Hemiplegia and hemiparesis following cerebral infarction affecting right dominant side; Z95.0 Presence of cardiac pacemaker; E11.9 Type 2 diabetes mellitus without complications; B96.20 Unspecified Escherichia coli [E. coli] as the cause of diseases classified elsewhere; D64.9 Anemia, unspecified
CPT/HCPCS: 36415; 71045; 80048; 80053; 80299; 81003; 84484; 85025; 87081; 87086; 87181; 93005; 96365; 96375; 99285

== ENCOUNTER 2019-12-06 09:49 | Inpatient (IN) | payer MEDICARE, MEDICAID ==
[~2019-12-06] VITALS: Ht 172.7 cm; Wt 79.4 kg
[2019-12-06] VITALS (23 sets, daily range): BP systolic 80–136; BP diastolic 54–89
[~2019-12-06 09:49] MED LIST changes: +BACTRIM DS TAB1 EAC1 ORAL; +CLARITIN10 M2 ORAL; +COREG25 MG ORAL; +FLOMAX0.4 MG ORAL; +HYDRALAZINE HC100 MG ORAL; +LEUPROLIDE1 MG/0.2 M IM; +NEURONTIN100 MG ORAL
[2019-12-06] MEDS ORDERED: Cefepime HCl 2 GM in NS 110 ML IV ONE (10:00)
[2019-12-06] MEDS ORDERED: Vancomycin 1.5 GM in NS 275 ML IVPB ONE (10:00)
--- NOTE | 2019-12-06 10:10 | NUR ---
ED Nurse Note: Patient was brought in by [facility] from [facility], due to being altered x 3 hrs and hypotensive (normal mental status AxOx3 per EMS). Per EMS patient's BS 440. Patient presented lethargic, sleepy, AAO x3, BSv 210, BP 80/62 at bed side. Patient has non-labored breathing, O2 sat 98% on 2L via NC.
[2019-12-06] MEDS ORDERED: Lidocaine 1% Plain 30 ml INJ ONE (10:14)
--- NOTE | 2019-12-06 10:25 | NUR ---
ED Nurse Note: central right femoral line was placed by Dr. Kraft, triple lumen. Patient tolerated procedure well.
[2019-12-06 10:31] LABS: BASOPHILS % (AUTO) 0.6 % (0.0-2.0); EOSINOPHILS % (AUTO) 0.1 % (0.0-3.0); HEMATOCRIT 34.4 % (42.0-52.0); HEMOGLOBIN 11.6 G/DL (14.2-18.0); LYMPHOCYTES % (AUTO) 9.1 % (20.0-45.0); MEAN CORPUSCULAR VOLUME 86 FL (80-99); MONOCYTES % (AUTO) 6.5 % (1.0-10.0); NEUTROPHILS % (AUTO) 83.7 % (45.0-75.0); PLATELET COUNT 149 K/UL (150-450); RED BLOOD COUNT 3.99 M/UL (4.70-6.10); RED CELL DISTRIBUTION WIDTH 11.1 % (11.6-14.8); WHITE BLOOD COUNT 5.7 K/UL (4.8-10.8)
--- NOTE | 2019-12-06 10:35 | NUR ---
ED Nurse Note: Folley catheter 16F was placed, patient tolerated procedure irina.
[2019-12-06 10:40] LABS: INR 1.1 (0.9-1.1)
--- NOTE | 2019-12-06 10:43 | Emergency Room Report ---
History of Present Illness General Chief Complaint: Altered Mental Status Source: Medical Record Present Illness HPI 69-year-old male history of hypertension, cardiomyopathy AICD presents with hypotension, altered mental status no known aggravating relieving factors severity is severe, constant started today patient was more altered, patient presents from [facility] via EMS Allergies: Coded Allergies: No Known Allergies (Unverified , 07/28/14) COVID-19 Screening Contact w/high risk pt: Yes Recent Travel to affected area: No Experienced COVID-19 symptoms?: No Patient History Limited by: medical condition - Currently altered Past Medical History: see triage record Reviewed Nursing Documentation: PMH: Agreed; PSxH: Agreed Nursing Documentation-PMH Hx Cardiac Problems: Yes Hx Hypertension: Yes Hx COPD: No Hx Diabetes: No - Hx Cancer: No Hx Gastrointestinal Problems: No Hx Cerebrovascular Accident: Yes - X 3 Hx Seizures: Yes Hx Weakness: Yes - RT SIDED WEAKNESS Review of Systems All Other Systems: limited - Currently altered Physical Exam Vital Signs Date Time Temp Pulse Resp B/P (MAP) Pulse Ox O2 Delivery O2 Flow Rate FiO2 12/06/19 09:50 97.2 78 16 80/56 (64) 94 Nasal Cannula 2.0 Sp02 EP Interpretation: reviewed, normal General Appearance: alert, moderate distress Head: normocephalic, atraumatic Eyes: bilateral eye PERRL, bilateral eye EOMI ENT: uvula midline, dry mucus membranes Neck: supple, thyroid normal, supple/symm/no masses Respiratory: no respiratory distress, no retraction, no accessory muscle use Cardiovascular #1: normal peripheral pulses, regular rate, rhythm, no edema, no gallop Gastrointestinal: non tender, soft, no guarding, no rebound Musculoskeletal: normal inspection 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, responsive Skin: no rash Procedures Critical Care Time Critical Care Time Given the critical condition in which the patient arrived, the patient was immediately assessed by myself and the nurse, and cardiac monitoring initiated due to the potential for rapid decompensation of the patient's clinical condition. During the course of the patient's stay, I spent a considerable amount of time at the bedside performing serial re-evaluations of the patient's hemodynamic and clinical status because of the recognized potential threat to life or limb in this condition. I then had a chance to review not only all of the available current laboratory and radiographic studies obtained today, but I also reviewed old records available to me at the time. Additionally, any ancillary information available including main entree cook and cashier records were reviewed. Sequential vital signs were obtained. Critical Care time of 43 minutes was performed exclusive of billable procedures. Central Line Central Line : Consent: Emergent Central Line Lumen: triple Maximal Sterile Barrier Tech: yes cap, yes mask, yes sterile gown, yes sterile gloves, yes large sterile sheet, yes hand hygiene, yes chlorhexidine prep Central Line Postion: femoral (R) Anesthesia: Lidocaine cc's of anesthesia: 5 Complications: none Central Line Post Position: sutured, good blood return Attempts: One Patient Tolerated: Well Complications: None Medical Decision Making Diagnostic Impression: Primary Impression: Altered mental status Qualified Codes: R41.82 - Altered mental status, unspecified Additional Impressions: Hypotension Qualified Codes: I95.9 - Hypotension, unspecified Sepsis Qualified Codes: A41.9 - Sepsis, unspecified organism ER Course 69-year-old male presents with altered mental status, hypotension, concern for possible sepsis versus COVID rule out, Patient required fluid resuscitation patient received 500 cc from EMS, we resuscitated with another 500 cc of fluid normal saline we are giving judicious with the fluid resuscitation due to the fact that patient has cardiomyopathy AICD Patient given cefepime, vancomycin, Mosqueda was inserted additionally a right femoral central line was inserted Patient admitted to Dr. Tee Tilley patient required multiple re-evaluations Patient's norepinephrine was titrated to a goal of MAP 65 Patient admitted to ICU will board in the emergency room until a bed opens up Laboratory Tests Test 12/06/19 10:05 12/06/19 10:14 12/06/19 11:21 Arterial Blood pH 7.357 (7.350-7.450) Arterial Blood Partial Pressure CO2 37.9 mmHg (35.0-45.0) Arterial Blood Partial Pressure O2 118.7 mmHg (75.0-100.0) H Arterial Blood HCO3 20.8 mmol/L (22.0-26.0) L Arterial Blood Oxygen Saturation 97.7 % (95-100) Arterial Blood Base Excess -4.2 (-2-2) L Devyn Test Positive White Blood Count 5.7 K/UL (4.8-10.8) Red Blood Count 3.99 M/UL (4.70-6.10) L Hemoglobin 11.6 G/DL (14.2-18.0) L Hematocrit 34.4 % (42.0-52.0) L Mean Corpuscular Volume 86 FL (80-99) Mean Corpuscular Hemoglobin 29.1 PG (27.0-31.0) Mean Corpuscular Hemoglobin Concent 33.7 G/DL (32.0-36.0) Red Cell Distribution Width 11.1 % (11.6-14.8) L Platelet Count 149 K/UL (150-450) L Mean Platelet Volume 6.5 FL (6.5-10.1) Neutrophils (%) (Auto) 83.7 % (45.0-75.0) H Lymphocytes (%) (Auto) 9.1 % (20.0-45.0) L Monocytes (%) (Auto) 6.5 % (1.0-10.0) Eosinophils (%) (Auto) 0.1 % (0.0-3.0) Basophils (%) (Auto) 0.6 % (0.0-2.0) Prothrombin Time 11.2 SEC (9.30-11.50) Prothrombin Time INR 1.1 (0.9-1.1) Activated Partial Thromboplast Time 34 SEC (23-33) H Sodium Level 142 MMOL/L (136-145) Potassium Level 4.5 MMOL/L (3.5-5.1) Chloride Level 105 MMOL/L (98-107) Carbon Dioxide Level 25 MMOL/L (21-32) Anion Gap 12 mmol/L (5-15) Blood Urea Nitrogen 71 mg/dL (7-18) H Creatinine 2.4 MG/DL (0.55-1.30) H Estimated Glomerular Filtration Rate 32.5 mL/min (>60) Glucose Level 229 MG/DL (74-106) H Lactic Acid Level 1.30 mmol/L (0.4-2.0) Calcium Level 8.4 MG/DL (8.5-10.1) L Phosphorus Level 4.3 MG/DL (2.5-4.9) Magnesium Level 2.4 MG/DL (1.8-2.4) Total Bilirubin 0.3 MG/DL (0.2-1.0) Aspartate Amino Transferase (AST) 27 U/L (15-37) Alanine Aminotransferase (ALT) 32 U/L (12-78) Alkaline Phosphatase 51 U/L (46-116) Total Creatine Kinase 423 U/L (26-308) H Creatine Kinase MB 0.8 NG/ML (0.0-3.6) Creatine Kinase MB Relative Index 0.1 Troponin I 0.003 ng/mL (0.000-0.056) Pro-B-Type Natriuretic Peptide 736 pg/mL (0-125) H Total Protein 7.9 G/DL (6.4-8.2) Albumin 3.3 G/DL (3.4-5.0) L Globulin 4.6 g/dL Albumin/Globulin Ratio 0.7 (1.0-2.7) L Lipase 217 U/L (73-393) Thyroid Stimulating Hormone (TSH) 0.184 uiU/mL (0.358-3.740) Free Thyroxine 0.97 NG/DL (0.76-1.46) Free Triiodothyronine 1.7 pg/mL (2.3-4.2) L Urine Color Yellow Urine Appearance Slightly cloudy Urine pH 5 (4.5-8.0) Urine Specific Williamson 1.020 (1.005-1.035) Urine Protein 2+ (NEGATIVE) H Urine Glucose (UA) Negative (NEGATIVE) Urine Ketones Negative (NEGATIVE) Urine Blood Negative (NEGATIVE) Urine Nitrite Negative (NEGATIVE) Urine Bilirubin Negative (NEGATIVE) Urine Urobilinogen Normal MG/DL (0.0-1.0) Urine Leukocyte Esterase Negative (NEGATIVE) Urine RBC 0-2 /HPF (0 - 0) H Urine WBC 0-2 /HPF (0 - 0) Urine Squamous Epithelial Cells Many /LPF (NONE/OCC) H Urine Bacteria Few /HPF (NONE) EKG Diagnostic Results EKG Time: 09:55 EP Interpretation: NSR, rate 78, QTc 433, no acute ST elevations, left axis deviation Rhythm Strip Diag. Results Rhythm Strip Time: 10:58 EP Interpretation: yes Rate: 72 Rhythm: NSR, no PVC's Chest X-Ray Diagnostic Results Chest X-Ray Diagnostic Results : Chest X-Ray Ordered: Yes # of Views/Limited/Complete: 1 View Indication: Shortness of Breath EP Interpretation: Yes Interpretation: other - Consolidation left lung versus atelectasis Impression: Other - Possible pneumonia left lower lobe Electronically Signed by: Triston Kraft MD Last Vital Signs Date Time Temp Pulse Resp B/P (MAP) Pulse Ox O2 Delivery O2 Flow Rate FiO2 12/06/19 09:50 97.2 78 16 80/56 (64) 94 Nasal Cannula 2.0 Disposition: ADMITTED INPATIENT Condition: Critical Referrals: Tee Novoa DO (PCP) Focused Exam Allergies: Coded Allergies: No Known Allergies (Unverified , 07/28/14) Date Exam Occurred: Dec 06, 2019 Time Exam Occurred: 11:02 Laboratory Studies Laboratory Tests Test 12/06/19 10:05 12/06/19 10:14 Arterial Blood pH 7.357 (7.350-7.450) Arterial Blood Partial Pressure CO2 37.9 mmHg (35.0-45.0) Arterial Blood Partial Pressure O2 118.7 mmHg (75.0-100.0) H Arterial Blood HCO3 20.8 mmol/L (22.0-26.0) L Arterial Blood Oxygen Saturation 97.7 % (95-100) Arterial Blood Base Excess -4.2 (-2-2) L Devyn Test Positive White Blood Count 5.7 K/UL (4.8-10.8) Red Blood Count 3.99 M/UL (4.70-6.10) L Hemoglobin 11.6 G/DL (14.2-18.0) L Hematocrit 34.4 % (42.0-52.0) L Mean Corpuscular Volume 86 FL (80-99) Mean Corpuscular Hemoglobin 29.1 PG (27.0-31.0) Mean Corpuscular Hemoglobin Concent 33.7 G/DL (32.0-36.0) Red Cell Distribution Width 11.1 % (11.6-14.8) L Platelet Count 149 K/UL (150-450) L Mean Platelet Volume 6.5 FL (6.5-10.1) Neutrophils (%) (Auto) 83.7 % (45.0-75.0) H Lymphocytes (%) (Auto) 9.1 % (20.0-45.0) L Monocytes (%) (Auto) 6.5 % (1.0-10.0) Eosinophils (%) (Auto) 0.1 % (0.0-3.0) Basophils (%) (Auto) 0.6 % (0.0-2.0) Prothrombin Time 11.2 SEC (9.30-11.50) Prothromb Time International Ratio 1.1 (0.9-1.1) Activated Partial Thromboplast Time 34 SEC (23-33) H Sodium Level 142 MMOL/L (136-145) Potassium Level 4.5 MMOL/L (3.5-5.1) Chloride Level 105 MMOL/L (98-107) Carbon Dioxide Level 25 MMOL/L (21-32) Anion Gap 12 mmol/L (5-15) Blood Urea Nitrogen 71 mg/dL (7-18) H Creatinine 2.4 MG/DL (0.55-1.30) H Estimat Glomerular Filtration Rate 32.5 mL/min (>60) Glucose Level 229 MG/DL (74-106) H Lactic Acid Level Pending Calcium Level 8.4 MG/DL (8.5-10.1) L Phosphorus Level Pending Magnesium Level Pending Total Bilirubin Pending Aspartate Amino Transf (AST/SGOT) Pending Alanine Aminotransferase (ALT/SGPT) Pending Alkaline Phosphatase Pending Total Creatine Kinase Pending Creatine Kinase MB Pending Troponin I 0.003 ng/mL (0.000-0.056) Pro-B-Type Natriuretic Peptide Pending Total Protein Pending Albumin Pending Globulin Pending Lipase Pending Thyroid Stimulating Hormone (TSH) Pending Free Thyroxine Pending Free Triiodothyronine Pending Vital Signs Last 24 Hour Vital Signs Date Time Temp Pulse Resp B/P (MAP) Pulse Ox O2 Delivery O2 Flow Rate FiO2 12/06/19 10:50 92/55 12/06/19 09:50 97.2 78 16 80/56 (64) 94 Nasal Cannula 2.0 Respiratory Exam: CTA Bilaterally Cardiovascular Exam: S1, S2 Capillary Refill: Less Than 2 Seconds Peripheral Pulse: Strong Pulse Location: Radial Skin Exam: Normal Triston Lombardi MD Dec 06, 2019 10:43
[2019-12-06] MEDS ORDERED: Levophed 4mg/4mL Inj IV ONE (10:47)
[2019-12-06 11:00] LABS: ANION GAP 12 mmol/L (5-15); BLOOD UREA NITROGEN 71 mg/dL (7-18); CALCIUM 8.4 MG/DL (8.5-10.1); CARBON DIOXIDE 25 MMOL/L (21-32); CHLORIDE 105 MMOL/L (98-107); CREATININE 2.4 MG/DL (0.55-1.30); POTASSIUM 4.5 MMOL/L (3.5-5.1); SODIUM 142 MMOL/L (136-145)
[2019-12-06 11:03] LABS: ALANINE AMINOTRANSFERASE 32 U/L (12-78); ALBUMIN 3.3 G/DL (3.4-5.0); ALBUMIN/GLOBULIN RATIO 0.7 (1.0-2.7); ALKALINE PHOSPHATASE 51 U/L (46-116); ASPARTATE AMINO TRANSFERASE 27 U/L (15-37); BILIRUBIN,TOTAL 0.3 MG/DL (0.2-1.0); CKMB 0.8 NG/ML (0.0-3.6); CREATINE KINASE 423 U/L (26-308); PHOSPHORUS 4.3 MG/DL (2.5-4.9)
--- NOTE | 2019-12-06 11:15 | NUR ---
ED Nurse Note: stop titrating Levofed at this point. Patient's BP 103/63. Per Dr. Kraft keep MAP at 70.
[2019-12-06] MEDS ORDERED: DULCOLAX10 MG RC (11:45)
[2019-12-06] MEDS ORDERED: DOCUSATE SODIU100 MG ORAL (11:45)
[2019-12-06] MEDS ORDERED: LUPRON DEPOT7.5 MG IM (12:01)
[2019-12-06] MEDS ORDERED: FLOMAX0.4 MG ORAL (12:01)
[2019-12-06 12:02] LABS: APPEARANCE,URINE SLIGHTLY CLOUDY; BILIRUBIN, URINE NEGATIVE (NEGATIVE); GLUCOSE, URINE (UA) NEGATIVE (NEGATIVE); KETONES,URINE NEGATIVE (NEGATIVE); LEUKOCYTE ESTERASE ,URINE NEGATIVE (NEGATIVE); NITRITE,URINE NEGATIVE (NEGATIVE); PH,URINE 5 (4.5-8.0); PROTEIN,URINE 2+ (NEGATIVE); UROBILINOGEN,URINE NORMAL MG/DL (0.0-1.0)
[2019-12-06 12:07] LABS: COLOR,URINE YELLOW
--- NOTE | 2019-12-06 12:16 | Diagnostic Imaging Report ---
Indication: Shortness of breath Technique: One view of the chest Comparison: 09/10/2019 Findings: Atelectasis and/or infiltrate is seen at the left lung base. The remaining lungs and pleural spaces are clear. There is a right chest AICD again demonstrated. The heart is borderline enlarged. The aorta is tortuous ectatic and calcified. Degenerative changes of the right shoulder are noted. Impression: Left basilar atelectasis and/or infiltrate Other findings as noted
[2019-12-06] MEDS ORDERED: SENNA8.6 M2 PO (12:36)
[2019-12-06] MEDS ORDERED: NEURONTIN600 MG ORAL (12:36)
--- NOTE | 2019-12-06 14:23 | NUR ---
ED Nurse Note: Patient's BP 136/89, MAP is 102. Perm Dr. Kraft Levofed was titrated to 8 mcg/min.
--- NOTE | 2019-12-06 14:57 | Consultation ---
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, seizure disorder, [place] resident ([facility]) presented to ED on 12/05 with hypotension, altered mental status Allergies: Coded Allergies: No Known Allergies (Unverified , 07/28/14) Medication History Scheduled Carvedilol (Coreg), 25 MG ORAL EVERY 12 HOURS, (Reported) Cranberry Fruit Concentrate (Cranberry), 450 MG PO DAILY, (Reported) Docusate Sodium* (Docusate Sodium*), 100 MG ORAL DAILY, (Reported) Furosemide* (Lasix*), 20 MG ORAL DAILY, (Reported) Gabapentin* (Neurontin*), 300 MG ORAL EVERY 8 HOURS, (Reported) Hydralazine Hcl* (Hydralazine Hcl*), 100 MG ORAL EVERY 8 HOURS, (Reported) Levetiracetam (Keppra), 1,000 MG ORAL EVERY 12 HOURS, (Reported) Lisinopril (Lisinopril*), 20 MG ORAL BID, (Reported) Loratadine (Claritin), 10 MG ORAL DAILY, (Reported) Multivitamin With Minerals (Multivitamins With Minerals*), 1 TAB ORAL DAILY, ( Reported) Simvastatin (Zocor), 20 MG ORAL BEDTIME, (Reported) Spironolactone* (Aldactone*), 25 MG ORAL DAILY, (Reported) Tamsulosin HCl (Flomax), 0.4 MG ORAL DAILY, (Reported) Scheduled PRN Acetaminophen (Tylenol), 650 MG ORAL Q4HR PRN for Fever/Headache/Mild Pain, ( Reported) Bisacodyl (Dulcolax), 10 MG RC NEEDED PRN for Constipation, (Reported) Dextran 70/Hypromellose (Artificial Tears Eye Drops*), 1 DROP BOTH EYES TID PRN for Dry Eyes, (Reported) Leuprolide Acetate (Lupron Depot), 7.5 MG IM for 15th every month, (Reported) Mag Hydrox/Al Hydrox/Simeth (Maalox Maximum Strength Susp), 30 ML PO Q4HR PRN for Per rx protocol, (Reported) Magnesium Hydroxide* (Milk Of Magnesia*), 30 ML ORAL QHS PRN for Constipation, ( Reported) Nitroglycerin (Nitroglycerin), 0.4 MG SL PRN PRN for Prn Chest Pain, (Reported) Sennosides (Senna), 17.2 MG PO BEDTIME PRN for Constipation, (Reported) Patient History Healthcare decision maker Resuscitation status Advanced Directive on File Patient History Narrative Pmhx: as above Shx: reviewed Fhx: non contributory Physical Exam Physical Exam Narrative General Appearance: alert, moderate distress Head: normocephalic, atraumatic Eyes: bilateral eye PERRL, bilateral eye EOMI ENT: uvula midline, dry mucus membranes Neck: supple, thyroid normal, supple/symm/no masses Respiratory: no respiratory distress, no retraction, no accessory muscle use Cardiovascular #1: normal peripheral pulses, regular rate, rhythm, no edema, no gallop Gastrointestinal: non tender, soft, no guarding, no rebound Musculoskeletal: normal inspection 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, responsive Skin: no rash Last 24 Hour Vital Signs Date Time Temp Pulse Resp B/P (MAP) Pulse Ox O2 Delivery O2 Flow Rate FiO2 12/06/19 14:23 136/89 12/06/19 14:15 97.2 72 16 136/89 100 Nasal Cannula 1.0 12/06/19 13:14 97.2 68 16 108/63 100 Nasal Cannula 1.0 12/06/19 11:15 97.2 78 16 95/54 100 Nasal Cannula 1.0 12/06/19 11:10 96/56 12/06/19 11:05 84/54 12/06/19 11:00 90/55 12/06/19 10:55 91/60 12/06/19 10:50 92/55 12/06/19 10:15 78 16 Nasal Cannula 2.0 12/06/19 10:15 97.2 78 16 80/56 94 Nasal Cannula 2.0 12/06/19 09:50 97.2 78 16 80/56 (64) 94 Nasal Cannula 2.0 Laboratory Tests Test 12/06/19 10:05 12/06/19 10:14 12/06/19 11:21 Arterial Blood pH 7.357 (7.350-7.450) Arterial Blood Partial Pressure CO2 37.9 mmHg (35.0-45.0) Arterial Blood Partial Pressure O2 118.7 mmHg (75.0-100.0) H Arterial Blood HCO3 20.8 mmol/L (22.0-26.0) L Arterial Blood Oxygen Saturation 97.7 % (95-100) Arterial Blood Base Excess -4.2 (-2-2) L Devyn Test Positive White Blood Count 5.7 K/UL (4.8-10.8) Red Blood Count 3.99 M/UL (4.70-6.10) L Hemoglobin 11.6 G/DL (14.2-18.0) L Hematocrit 34.4 % (42.0-52.0) L Mean Corpuscular Volume 86 FL (80-99) Mean Corpuscular Hemoglobin 29.1 PG (27.0-31.0) Mean Corpuscular Hemoglobin Concent 33.7 G/DL (32.0-36.0) Red Cell Distribution Width 11.1 % (11.6-14.8) L Platelet Count 149 K/UL (150-450) L Mean Platelet Volume 6.5 FL (6.5-10.1) Neutrophils (%) (Auto) 83.7 % (45.0-75.0) H Lymphocytes (%) (Auto) 9.1 % (20.0-45.0) L Monocytes (%) (Auto) 6.5 % (1.0-10.0) Eosinophils (%) (Auto) 0.1 % (0.0-3.0) Basophils (%) (Auto) 0.6 % (0.0-2.0) Prothrombin Time 11.2 SEC (9.30-11.50) Prothromb Time International Ratio 1.1 (0.9-1.1) Activated Partial Thromboplast Time 34 SEC (23-33) H Sodium Level 142 MMOL/L (136-145) Potassium Level 4.5 MMOL/L (3.5-5.1) Chloride Level 105 MMOL/L (98-107) Carbon Dioxide Level 25 MMOL/L (21-32) Anion Gap 12 mmol/L (5-15) Blood Urea Nitrogen 71 mg/dL (7-18) H Creatinine 2.4 MG/DL (0.55-1.30) H Estimat Glomerular Filtration Rate 32.5 mL/min (>60) Glucose Level 229 MG/DL (74-106) H Lactic Acid Level 1.30 mmol/L (0.4-2.0) Calcium Level 8.4 MG/DL (8.5-10.1) L Phosphorus Level 4.3 MG/DL (2.5-4.9) Magnesium Level 2.4 MG/DL (1.8-2.4) Total Bilirubin 0.3 MG/DL (0.2-1.0) Aspartate Amino Transf (AST/SGOT) 27 U/L (15-37) Alanine Aminotransferase (ALT/SGPT) 32 U/L (12-78) Alkaline Phosphatase 51 U/L (46-116) Total Creatine Kinase 423 U/L (26-308) H Creatine Kinase MB 0.8 NG/ML (0.0-3.6) Creatine Kinase MB Relative Index 0.1 Troponin I 0.003 ng/mL (0.000-0.056) Pro-B-Type Natriuretic Peptide 736 pg/mL (0-125) H Total Protein 7.9 G/DL (6.4-8.2) Albumin 3.3 G/DL (3.4-5.0) L Globulin 4.6 g/dL Albumin/Globulin Ratio 0.7 (1.0-2.7) L Lipase 217 U/L (73-393) Thyroid Stimulating Hormone (TSH) 0.184 uiU/mL (0.358-3.740) Free Thyroxine 0.97 NG/DL (0.76-1.46) Free Triiodothyronine 1.7 pg/mL (2.3-4.2) L Urine Color Yellow Urine Appearance Slightly cloudy Urine pH 5 (4.5-8.0) Urine Specific [place] 1.020 (1.005-1.035) Urine Protein 2+ (NEGATIVE) H Urine Glucose (UA) Negative (NEGATIVE) Urine Ketones Negative (NEGATIVE) Urine Blood Negative (NEGATIVE) Urine Nitrite Negative (NEGATIVE) Urine Bilirubin Negative (NEGATIVE) Urine Urobilinogen Normal MG/DL (0.0-1.0) Urine Leukocyte Esterase Negative (NEGATIVE) Urine RBC 0-2 /HPF (0 - 0) H Urine WBC 0-2 /HPF (0 - 0) Urine Squamous Epithelial Cells Many /LPF (NONE/OCC) H Urine Bacteria Few /HPF (NONE) Height (Feet): 5 Height (Inches): 8.00 Weight (Pounds): 180 Medications Current Medications Medications (Trade) Dose Ordered Sig/Wiley Route PRN Reason Start Time Stop Time Status Last Admin Dose Admin Norepinephrine Bitartrate 4 mg/ Dextrose 250 ml @ 0 mls/hr Q24H IV 12/06/19 10:45 01/05/20 10:44 12/06/19 10:50 Assessment/Plan Assessment/Plan: Abx: IV Vancomycin x1 12/05 Cefepime x1 12/05 Assessment: Septic shock-r/o bacteremia Afebrile No leukocytosis -u/a neg Probable PNA- r/o COVID19 (from [place] with confirmed cases) At 1l NC -CXR: Left basilar atelectasis and/or infiltrate TRAE HTN 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 Will continue to follow along with you. Discussed with RN, Sujatha Sanchez M.D. Dec 06, 2019 14:56
--- NOTE | 2019-12-06 15:10 | NUR ---
ED Nurse Note: Paged Dr. Kanu Novoa regarding further orders.
--- NOTE | 2019-12-06 15:25 | Cardiac Electrophysiology PN ---
Subjective Subjective Pt seen in ER and DW ER [id number] Objective Last 24 Hour Vital Signs Date Time Temp Pulse Resp B/P (MAP) Pulse Ox O2 Delivery O2 Flow Rate FiO2 12/06/19 14:23 136/89 12/06/19 14:15 97.2 72 16 136/89 100 Nasal Cannula 1.0 12/06/19 13:14 97.2 68 16 108/63 100 Nasal Cannula 1.0 12/06/19 11:15 97.2 78 16 95/54 100 Nasal Cannula 1.0 12/06/19 11:10 96/56 12/06/19 11:05 84/54 12/06/19 11:00 90/55 12/06/19 10:55 91/60 12/06/19 10:50 92/55 12/06/19 10:15 78 16 Nasal Cannula 2.0 12/06/19 10:15 97.2 78 16 80/56 94 Nasal Cannula 2.0 12/06/19 09:50 97.2 78 16 80/56 (64) 94 Nasal Cannula 2.0 Laboratory Tests Test 12/06/19 10:05 12/06/19 10:14 12/06/19 11:21 Arterial Blood pH 7.357 (7.350-7.450) Arterial Blood Partial Pressure CO2 37.9 mmHg (35.0-45.0) Arterial Blood Partial Pressure O2 118.7 mmHg (75.0-100.0) H Arterial Blood HCO3 20.8 mmol/L (22.0-26.0) L Arterial Blood Oxygen Saturation 97.7 % (95-100) Arterial Blood Base Excess -4.2 (-2-2) L Devyn Test Positive White Blood Count 5.7 K/UL (4.8-10.8) Red Blood Count 3.99 M/UL (4.70-6.10) L Hemoglobin 11.6 G/DL (14.2-18.0) L Hematocrit 34.4 % (42.0-52.0) L Mean Corpuscular Volume 86 FL (80-99) Mean Corpuscular Hemoglobin 29.1 PG (27.0-31.0) Mean Corpuscular Hemoglobin Concent 33.7 G/DL (32.0-36.0) Red Cell Distribution Width 11.1 % (11.6-14.8) L Platelet Count 149 K/UL (150-450) L Mean Platelet Volume 6.5 FL (6.5-10.1) Neutrophils (%) (Auto) 83.7 % (45.0-75.0) H Lymphocytes (%) (Auto) 9.1 % (20.0-45.0) L Monocytes (%) (Auto) 6.5 % (1.0-10.0) Eosinophils (%) (Auto) 0.1 % (0.0-3.0) Basophils (%) (Auto) 0.6 % (0.0-2.0) Prothrombin Time 11.2 SEC (9.30-11.50) Prothromb Time International Ratio 1.1 (0.9-1.1) Activated Partial Thromboplast Time 34 SEC (23-33) H Sodium Level 142 MMOL/L (136-145) Potassium Level 4.5 MMOL/L (3.5-5.1) Chloride Level 105 MMOL/L (98-107) Carbon Dioxide Level 25 MMOL/L (21-32) Anion Gap 12 mmol/L (5-15) Blood Urea Nitrogen 71 mg/dL (7-18) H Creatinine 2.4 MG/DL (0.55-1.30) H Estimat Glomerular Filtration Rate 32.5 mL/min (>60) Glucose Level 229 MG/DL (74-106) H Lactic Acid Level 1.30 mmol/L (0.4-2.0) Calcium Level 8.4 MG/DL (8.5-10.1) L Phosphorus Level 4.3 MG/DL (2.5-4.9) Magnesium Level 2.4 MG/DL (1.8-2.4) Total Bilirubin 0.3 MG/DL (0.2-1.0) Aspartate Amino Transf (AST/SGOT) 27 U/L (15-37) Alanine Aminotransferase (ALT/SGPT) 32 U/L (12-78) Alkaline Phosphatase 51 U/L (46-116) Total Creatine Kinase 423 U/L (26-308) H Creatine Kinase MB 0.8 NG/ML (0.0-3.6) Creatine Kinase MB Relative Index 0.1 Troponin I 0.003 ng/mL (0.000-0.056) Pro-B-Type Natriuretic Peptide 736 pg/mL (0-125) H Total Protein 7.9 G/DL (6.4-8.2) Albumin 3.3 G/DL (3.4-5.0) L Globulin 4.6 g/dL Albumin/Globulin Ratio 0.7 (1.0-2.7) L Lipase 217 U/L (73-393) Thyroid Stimulating Hormone (TSH) 0.184 uiU/mL (0.358-3.740) Free Thyroxine 0.97 NG/DL (0.76-1.46) Free Triiodothyronine 1.7 pg/mL (2.3-4.2) L Urine Color Yellow Urine Appearance Slightly cloudy Urine pH 5 (4.5-8.0) Urine Specific [place] 1.020 (1.005-1.035) Urine Protein 2+ (NEGATIVE) H Urine Glucose (UA) Negative (NEGATIVE) Urine Ketones Negative (NEGATIVE) Urine Blood Negative (NEGATIVE) Urine Nitrite Negative (NEGATIVE) Urine Bilirubin Negative (NEGATIVE) Urine Urobilinogen Normal MG/DL (0.0-1.0) Urine Leukocyte Esterase Negative (NEGATIVE) Urine RBC 0-2 /HPF (0 - 0) H Urine WBC 0-2 /HPF (0 - 0) Urine Squamous Epithelial Cells Many /LPF (NONE/OCC) H Urine Bacteria Few /HPF (NONE) Shai Bullard MD Dec 06, 2019 15:25
--- NOTE | 2019-12-06 18:13 | NUR ---
ED Nurse Note: Second bag of Levofed started. Patient's BP 90/56. Levofed running at rate, 8 mcg/min.
--- NOTE | 2019-12-06 19:08 | NUR ---
HAND-OFF: Report given to BARBARA Sanchez. Patient is in the bed,n with eyes close, VSS at thuis time, Levofed running at rate 8 mcg/min
--- NOTE | 2019-12-06 19:09 | NUR ---
ED Nurse Note: Patietn is resting comfortably with no physical s/s of acute distress. vital signs are within normal range. Will continue to monitor.
--- NOTE | 2019-12-06 19:45 | NUR ---
Spoke with -[facility] patient NPO- he will give ICU orders to ICU nurse when patient gets to ICU. ICU nurse should call him for orders. Addendum: 12/06/19 at 2027 by PETER Juancarlos Connelly-charge nurse spoke with -susan Cordero.
--- NOTE | 2019-12-06 20:09 | NUR ---
ED Nurse Note: Patient gown changed due to a soiled spot. Will continue to monitor for transport to ICU.
--- NOTE | 2019-12-06 20:18 | NUR ---
ED Nurse Note: Called and rendered report to Adi JIMENEZ. Receving nurse will call back when room is ready for patient arrival.
--- NOTE | 2019-12-06 21:07 | NUR ---
ED Nurse Note: Patient is resting with no physical s/s of acute distress vital signs stable and documented.
--- NOTE | 2019-12-06 21:57 | NUR ---
ED Nurse Note: notified by desk medical unit secretary that room is no available to receive patient.
--- NOTE | 2019-12-06 22:00 | NUR ---
ED Nurse Note: Patient transported to floor by food service technician and RN without complications.
--- NOTE | 2019-12-06 22:10 | NUR ---
NURSE NOTES: Pt admitted from ER. Received report from BARBARA Sanchez. Pt is restring on the bed and awake and alert and forgetful. On O2 1L via nasal cannula and SaO2 98% noted. Iv site intact and no sign of infiltration noted. Pt has Rt. femoral TLC and dressing is clean and dry. On running with Levophed drip 8mcg/min. Denied pain at this time. Pt has Mosqueda cath and patent and drainage well. [facility] monitor and noted SR. Pt has Rt chest AICD. Pt has upper and lower denture and 34$ georges but Pt refused save money to safe. Explained benefits and risks. Given admission instruction and smoking cessation. On droplet precaution for PUI COVID-19. Noted old scar on sacral area. Placed fall and seizure precaution. Left message to Dr. Jacobo for admission order and awating call back. Will continue to care plan.
--- NOTE | 2019-12-06 23:30 | Consultation ---
DATE OF CONSULTATION: 12/06/2019 CARDIAC ELECTROPHYSIOLOGY CONSULTATION CONSULTING PHYSICIAN: Shai Bullard MD. REFERRING PHYSICIAN: Tee Novoa DO. REASON FOR CONSULTATION: Management of congestive heart failure and evaluation of the patient's defibrillator and management of shock. HISTORY OF PRESENT ILLNESS: The patient is a 69-year-old gentleman with history of hypertension, history of severe cardiomyopathy status post right-sided dual-chamber defibrillator implantation as well as history of CVA with right-sided weakness and seizure disorder, who is a resident of [facility]. The patient was brought to the emergency room for hypotension, altered mental status. Apparently at the patient's retirement, there were other patient's with COVID. At time of my evaluation, the patient is in COVID isolation. The patient also was hypotensive and started on Levophed. At the time of my evaluation, the patient is unable to provide meaningful information. REVIEW OF SYSTEMS: Cannot be obtained. PAST MEDICAL HISTORY: As mentioned above. FAMILY HISTORY: Noncontributory. MEDICATIONS: Include Coreg, Lasix, hydralazine, lisinopril, Zocor, Aldactone, Flomax. PHYSICAL EXAMINATION: VITAL SIGNS: Show blood pressure of 136/89, pulse 72, respirations 16, temperature 97.2. His initial blood pressure was 84/54. HEAD AND NECK: Shows positive JVD. LUNGS: Decreased breath sounds. CARDIOVASCULAR: Regular S1 and S2 with no gallop. ABDOMEN: Soft. EXTREMITIES: A 1+ pitting edema. Defibrillator is in right subclavian. LABORATORY AND DIAGNOSTIC DATA: His labs show white count of 5.7, hemoglobin 11.6, hematocrit 34.4, platelet count 149. Sodium 142, potassium 4.5, BUN of 71, creatinine 2.4, and glucose of 229. His first troponin is negative. ASSESSMENT AND PLAN: 1. Hypotension could be due to cardiomyopathy versus sepsis. His BNP is 736. The patient was already evaluated by Dr. Sanchez and started on IV antibiotics. The patient is already on Levophed. We will get an echocardiogram for further evaluation. 2. History of cardiomyopathy. Because of hypotension, we will discontinue Coreg, hydralazine, lisinopril, and Aldactone until blood pressure more stabilized. 3. Status post right-sided ICD. The brand is not clear at this point. We will try to interrogate the ICD after we find the device. 4. History of hypertension, currently hypotensive. 5. History of CVA with residual weakness. 6. Rule out COVID-19 in a patient in the retirement with COVID-19 residents. Thank you very much, Dr. Novoa, for allowing me to participate in the care of this patient. Please do not hesitate to contact me if you have any questions regarding my evaluation. The case was discussed with the emergency room physician as well. Shai Bullard M.D. DR: Wilfrid JOB#: [id number] CC:
[2019-12-07] VITALS (33 sets, daily range): BP systolic 90–121; BP diastolic 55–80
--- NOTE | 2019-12-07 00:37 | NUR ---
NURSE NOTES: Pt is resting on the bed and no sign of acute distress noted. Checked BP 116/67mmHg. Decrease Levophed drip 4mcg/min. On O2 1L via nasal cannula and SaO2 99% noted. On Mosqueda cath and drainage well. Placed fall precaution. Will continue to care plan.
[2019-12-07] MEDS ORDERED: MAALOX MAXIMUM355 M1 PO (01:19)
[2019-12-07] MEDS ORDERED: MULTIVITAMINS1 EAC8 ORAL (01:19)
[2019-12-07] MEDS ORDERED: MILK OF MA400 MG/51 ORAL (01:19)
--- NOTE | 2019-12-07 01:29 | Consultation ---
DATE OF CONSULTATION: 12/06/2019 PULMONARY CONSULTATION CONSULTING PHYSICIAN: Mike Montalvo M.D. HISTORY OF PRESENT ILLNESS: This is a 69-year-old male, long term resident who was sent to the hospital with altered mental status. Patient was also found to be hypotensive. Patient has a history of cardiomyopathy and AICD. He is unable to provide a clear history. Currently, he is on Levophed drip. He is also hydrating well on nasal oxygen. PAST MEDICAL HISTORY: Notable for AICD, chronic heart failure, cardiomyopathy, hypertension, long term resident. There are no known pulmonary issues. He has previously had a stroke. REVIEW OF SYSTEMS: Not reliable. PHYSICAL EXAMINATION: GENERAL: Reveals an elderly male. HEENT: Unremarkable. LUNGS: Decreased breath sounds bilaterally with normal heart sounds. ABDOMEN: Soft. EXTREMITIES: There is no edema. VITAL SIGNS: Blood pressure 80/60, heart rate is 74, respirations 18, O2 saturation on 2 L oxygen. LABORATORY DATA: Lab testing shows x-ray chest with left atelectasis/infiltrate. Hemoglobin 11.6. Creatinine 2.4. IMPRESSION: 1. Cardiomyopathy. 2. Hypotension. 3. Left lung pneumonia. 4. half-way resident. 5. Rule out COVID-19. DISCUSSION: 1. Admit to the hospital. 2. Continue current medications. 3. Start pressors. 4. Oxygen. 5. Pulmonary hygiene. 6. Broad-spectrum antibiotics. 7. We will follow. Mike Montalvo M.D. DR: FIDE JOB#: [id number] CC:
--- NOTE | 2019-12-07 02:00 | NUR ---
NURSE NOTES: Pt is resting on the bed and awake and forgetful. Noted BP: 118/64mmHg. Decrease Levophed 4mcg/min. Repositioned. Will continue to monitor any change of condition.
--- NOTE | 2019-12-07 04:00 | NUR ---
NURSE NOTES: Morning care was done. Tolerated BP with Levophed drip. Changed position. Placed fall and Seizure precaution. Will continue to care plan.
[2019-12-07 06:00] LABS: BASOPHILS % (AUTO) 1.1 % (0.0-2.0); HEMATOCRIT 37.4 % (42.0-52.0); HEMOGLOBIN 12.6 G/DL (14.2-18.0); LYMPHOCYTES % (AUTO) 18.9 % (20.0-45.0); MEAN CORPUSCULAR VOLUME 86 FL (80-99); MONOCYTES % (AUTO) 10.2 % (1.0-10.0); NEUTROPHILS % (AUTO) 69.8 % (45.0-75.0); PLATELET COUNT 137 K/UL (150-450); RED BLOOD COUNT 4.36 M/UL (4.70-6.10); WHITE BLOOD COUNT 5.2 K/UL (4.8-10.8)
--- NOTE | 2019-12-07 06:00 | NUR ---
NURSE NOTES: Pt is sleeping on the bed and no sign of acute distress noted. On O2 1L via nasal cannula and SaO2 97-98% noted. On running with Levophed drip 2mcg/min. Will continue to monitor any change of condition.
[2019-12-07 06:29] LABS: ANION GAP 10 mmol/L (5-15); BLOOD UREA NITROGEN 43 mg/dL (7-18); CALCIUM 8.6 MG/DL (8.5-10.1); CARBON DIOXIDE 25 MMOL/L (21-32); CHLORIDE 107 MMOL/L (98-107); CREATININE 1.2 MG/DL (0.55-1.30); POTASSIUM 4.6 MMOL/L (3.5-5.1); SODIUM 142 MMOL/L (136-145)
--- NOTE | 2019-12-07 07:36 | NUR ---
HAND-OFF: Report given to BARBARA Read. Pt is sleeping on the bed and no sign of acute distress noted.
--- NOTE | 2019-12-07 07:40 | NUR ---
NURSE NOTES: Report received from Adi Watts RN.Pt resting quietly in bed asleep ,easily awakens with verbal and tactile stimuli,no signs of resp distress ,on 1 L NC ,noted no discomfort,SR on the monitor, Pt kept NPO except medic,skin warm and dry,PIV site to DIANA intact,RT Femoral TLC with Levophed drip at 2 mcg/hr ,and IVF NS at 75 ml/hr ,with Mosqueda cath draining yellow urine,SR up x2 HOB elevated,bed lock in lowest position,will continue with plans of care.
[2019-12-07] MEDS ORDERED: Cefepime HCl 1 GM in D5W 55 ML IVPB SCH ×2 (09:00→11:00)
[2019-12-07] MEDS: Vancomycin 750mg/D5W 275ml IVPB SCH ×4 (10:22→21:26)
--- NOTE | 2019-12-07 10:45 | NUR ---
NURSE NOTES: Resting quietly in bed ,stable no distress presented.
--- NOTE | 2019-12-07 12:30 | NUR ---
NURSE NOTES: Dr Montalvo at bedside,ordered clear liquid diet.
--- NOTE | 2019-12-07 15:30 | NUR ---
NURSE NOTES: Dr Bullard at bedside,updated re pt's status and pacemaker.
--- NOTE | 2019-12-07 15:44 | Cardiac Electrophysiology PN ---
Assessment/Plan Assessment/Plan 1. Shock could be due to cardiomyopathy versus sepsis. His BNP is 736. The patient was already on Abx by Dr. Sanchez The patient is already on Levophed. We will get an echocardiogram for further evaluation. 2. History of cardiomyopathy. Because of hypotension off discontinue Coreg, hydralazine, lisinopril, and Aldactone until blood pressure more stabilized. 3. Status post right-sided ICD. The brand is not clear at this point. We will try to interrogate the ICD after we find the device. 4. History of hypertension, currently hypotensive. 5. History of CVA with residual weakness. 6. Rule out COVID-19 in a patient in the shelter with COVID-19 residents. KOTA RN Subjective Subjective On 2 mcg of Levophed in ICU on 1 liter NC. Covid results pending Objective Last 24 Hour Vital Signs Date Time Temp Pulse Resp B/P (MAP) Pulse Ox O2 Delivery O2 Flow Rate FiO2 12/07/19 15:00 100.5 69 27 104/58 (73) 98 12/07/19 14:00 69 27 110/63 (79) 100 12/07/19 13:00 101.3 67 109/60 (76) 12/07/19 13:00 109/60 12/07/19 12:00 Nasal Cannula 1.0 12/07/19 12:00 63 27 112/80 (91) 98 12/07/19 12:00 99/61 12/07/19 12:00 71 12/07/19 11:00 67 27 100/62 (75) 98 12/07/19 11:00 100/62 12/07/19 10:25 105/61 12/07/19 10:06 105/61 12/07/19 10:00 68 27 109/65 (80) 100 12/07/19 09:00 109/58 12/07/19 09:00 66 27 109/58 (75) 97 12/07/19 08:08 Nasal Cannula 1.0 12/07/19 08:00 99.1 67 27 104/61 (75) 99 12/07/19 08:00 104/61 12/07/19 08:00 68 12/07/19 07:00 65 31 108/63 (78) 98 12/07/19 07:00 108/63 12/07/19 06:30 68 30 107/66 (80) 97 12/07/19 06:00 65 28 105/60 (75) 96 12/07/19 06:00 105/60 12/07/19 05:30 72 28 111/63 (79) 98 12/07/19 05:00 70 25 109/60 (76) 97 12/07/19 05:00 107/63 12/07/19 04:30 68 27 108/64 (79) 97 12/07/19 04:00 99.6 67 28 107/63 (78) 97 12/07/19 04:00 69 12/07/19 04:00 Nasal Cannula 1.0 12/07/19 03:30 68 26 105/74 (84) 97 12/07/19 03:00 67 29 106/63 (77) 96 12/07/19 03:00 106/63 12/07/19 02:30 68 26 106/55 (72) 97 12/07/19 02:00 86 24 118/64 (82) 100 12/07/19 02:00 118/64 12/07/19 01:30 69 24 110/69 (83) 100 12/07/19 01:00 64 20 117/65 (82) 100 12/07/19 01:00 117/65 12/07/19 00:37 116/67 12/07/19 00:30 67 22 116/65 (82) 99 12/07/19 00:00 99.0 63 22 121/65 (83) 100 12/07/19 00:00 121/65 12/07/19 00:00 Nasal Cannula 1.0 12/07/19 00:00 65 12/06/19 23:30 67 22 119/62 (81) 98 12/06/19 23:00 Nasal Cannula 1.0 12/06/19 23:00 65 20 118/64 (82) 99 12/06/19 23:00 118/64 12/06/19 22:34 66 12/06/19 22:30 65 22 115/63 (80) 98 12/06/19 22:15 98.4 66 18 117/69 (85) 98 12/06/19 22:15 117/69 12/06/19 22:00 98.2 66 20 119/70 99 Nasal Cannula 1.0 12/06/19 21:50 98.2 72 20 123/69 97 Nasal Cannula 1.0 12/06/19 21:30 98.2 66 8 118/71 98 Nasal Cannula 1.0 12/06/19 21:15 98.2 66 23 123/77 98 Nasal Cannula 1.0 12/06/19 21:08 98.2 66 20 122/68 99 Nasal Cannula 1.0 12/06/19 21:00 98.2 67 25 122/68 99 Nasal Cannula 1.0 12/06/19 20:55 98.2 65 19 126/70 99 Nasal Cannula 1.0 12/06/19 20:45 98.2 67 14 126/69 98 Nasal Cannula 1.0 12/06/19 20:40 98.2 65 14 121/69 100 Nasal Cannula 1.0 12/06/19 20:35 98.2 63 16 121/70 100 Nasal Cannula 1.0 12/06/19 20:30 98.2 64 14 125/68 100 Nasal Cannula 1.0 12/06/19 20:00 98.2 65 18 121/72 99 Nasal Cannula 1.0 12/06/19 19:00 98.2 65 13 119/65 100 Nasal Cannula 1.0 12/06/19 18:15 98.2 74 16 126/67 100 Nasal Cannula 1.0 12/06/19 18:05 92/56 12/06/19 16:15 98.2 74 16 125/72 100 Nasal Cannula 1.0 Intake and Output 12/06/19 12/07/19 19:00 07:00 Intake Total 826.28 ml Output Total 100 ml 1700 ml Balance -100 ml -873.72 ml IV Total 826.28 ml Output Urine Total 100 ml 1700 ml Laboratory Tests Test 12/07/19 05:08 White Blood Count 5.2 K/UL (4.8-10.8) Red Blood Count 4.36 M/UL (4.70-6.10) L Hemoglobin 12.6 G/DL (14.2-18.0) L Hematocrit 37.4 % (42.0-52.0) L Mean Corpuscular Volume 86 FL (80-99) Mean Corpuscular Hemoglobin 28.9 PG (27.0-31.0) Mean Corpuscular Hemoglobin Concent 33.7 G/DL (32.0-36.0) Red Cell Distribution Width 11.0 % (11.6-14.8) L Platelet Count 137 K/UL (150-450) L Mean Platelet Volume 7.0 FL (6.5-10.1) Neutrophils (%) (Auto) 69.8 % (45.0-75.0) Lymphocytes (%) (Auto) 18.9 % (20.0-45.0) L Monocytes (%) (Auto) 10.2 % (1.0-10.0) H Eosinophils (%) (Auto) 0.0 % (0.0-3.0) Basophils (%) (Auto) 1.1 % (0.0-2.0) Sodium Level 142 MMOL/L (136-145) Potassium Level 4.6 MMOL/L (3.5-5.1) Chloride Level 107 MMOL/L (98-107) Carbon Dioxide Level 25 MMOL/L (21-32) Anion Gap 10 mmol/L (5-15) Blood Urea Nitrogen 43 mg/dL (7-18) H Creatinine 1.2 MG/DL (0.55-1.30) Estimat Glomerular Filtration Rate > 60 mL/min (>60) Glucose Level 175 MG/DL (74-106) H Calcium Level 8.6 MG/DL (8.5-10.1) Troponin I 0.054 ng/mL (0.000-0.056) Pro-B-Type Natriuretic Peptide 2706 pg/mL (0-125) H Random Vancomycin Level 11.3 ug/mL Microbiology Date/Time Source Procedure Growth Status 12/06/19 17:42 Rectum Received Objective HEAD AND NECK: Shows positive JVD. LUNGS: Decreased breath sounds. CARDIOVASCULAR: Regular S1 and S2 with no gallop. ABDOMEN: Soft. EXTREMITIES: A 1+ pitting edema. Defibrillator is in right subclavian. Shai Bullard MD Dec 07, 2019 15:44
--- NOTE | 2019-12-07 15:45 | History and Physical Report ---
DATE OF ADMISSION: 12/06/2019 DATE AND TIME SEEN: On 12/07/2019 at 9 a.m. CONSULTANTS: 1. Mike Montalvo MD. 2. Scott Paulson MD. 3. Shai Bullard MD. 4. Honorio Valentine MD. 5. Mirna Adkins MD. CHIEF COMPLAINT: Altered mental status, hypotension, rule out COVID. BRIEF HISTORY: This is a 69-year-old male from [facility], presented with above-mentioned diagnosis with low blood pressure. Therefore, was admitted to ICU. Currently, O2 NC, calm, sleeping in bed, in ICU, nonverbal. REVIEW OF SYSTEMS: Unavailable. PAST MEDICAL HISTORY: Include seizure, aphasia, weakness, COPD, diabetes. PAST SURGICAL HISTORY: Pacemaker. MEDICATION: Include cefepime, vancomycin, levetiracetam, norepinephrine. ALLERGIES: Denies. SOCIAL HISTORY: Unable to obtain secondary to the patient's lethargy. PHYSICAL EXAMINATION: GENERAL: Lethargic in bed, O2 NC, sleepy in bed, in ICU. VITAL SIGNS: Temperature is pending, pulse 65, respirations 31, blood pressure 108/63. HEENT: Normocephalic, atraumatic. NECK: Trachea is midline. PULMONARY: O2 NC, slight short of breath. ABDOMEN: No apparent wounds noted. EXTREMITIES: Show no cyanosis, clubbing. LABORATORY AND DIAGNOSTIC DATA: Labs at this time show hemoglobin 12.6, otherwise platelets 137 and BMP shows BUN 43, glucose 175. Troponin 0.054. BNP is 2706, otherwise. Urinalysis show 2+ protein, otherwise normal. ASSESSMENT: Altered mental status, hypotension, rule out COVID, anemia, seizure, aphasia, weakness, COPD, diabetes. PLAN: O2 and pulmonary treatment. Antibiotics per Infectious Disease. Blood pressure, blood sugar, and seizure control. Dietary followup. Resume home medications. PT and dietary evaluation. CBC and BMP in the morning. Tee Novoa D.O. DR: ADRIAN JOB#: [id number] CC:
[2019-12-07] MEDS ORDERED: LORazepam Inj 2mg/ml 1ml IV PRN (16:00)
--- NOTE | 2019-12-07 16:00 | NUR ---
NURSE NOTES: Pt febrile T101.5 F,Tylenol 650 mg po given,ice compress applied to forehead.
--- NOTE | 2019-12-07 16:29 | Infectious Diseases Prog Note ---
Assessment/Plan Assessment/Plan Assessment: Septic shock-r/o bacteremia Fever No leukocytosis -u/a neg -Bcx p Probable PNA- r/o COVID19 (from [place] with confirmed cases) At 1l NC -CXR: Left basilar atelectasis and/or infiltrate TRAE, improving HTN cadiomyopathy s/p AICD CVA x3 w/ residual R side weakness seizure disorder [facility]) Plan -Continue empiric IV Vancomycin and Cefepime #2 -f/u cx -Monitor CBC/CMP, temperatures -COVID 19 precautions -f/u SARS-COV2 PCR -clarify goals of care -aspiration precautions Thank you for consulting [facility]. Will continue to follow along with you. Discussed with RN, Subjective Allergies: Coded Allergies: No Known Allergies (Unverified , 07/28/14) Subjective Tm 101.3 at 1l NC levophed at 2 no leuokcytosis Cr improving Objective Vital Signs Last 24 Hour Vital Signs Date Time Temp Pulse Resp B/P (MAP) Pulse Ox O2 Delivery O2 Flow Rate FiO2 12/07/19 15:00 100.5 69 27 104/58 (73) 98 12/07/19 14:00 69 27 110/63 (79) 100 12/07/19 13:00 101.3 67 109/60 (76) 12/07/19 13:00 109/60 12/07/19 12:00 Nasal Cannula 1.0 12/07/19 12:00 63 27 112/80 (91) 98 12/07/19 12:00 99/61 12/07/19 12:00 71 12/07/19 11:00 67 27 100/62 (75) 98 12/07/19 11:00 100/62 12/07/19 10:25 105/61 12/07/19 10:06 105/61 12/07/19 10:00 68 27 109/65 (80) 100 12/07/19 09:00 109/58 12/07/19 09:00 66 27 109/58 (75) 97 12/07/19 08:08 Nasal Cannula 1.0 12/07/19 08:00 99.1 67 27 104/61 (75) 99 12/07/19 08:00 104/61 12/07/19 08:00 68 4/25/20 07:00 65 31 108/63 (78) 98 12/07/19 07:00 108/63 12/07/19 06:30 68 30 107/66 (80) 97 12/07/19 06:00 65 28 105/60 (75) 96 12/07/19 06:00 105/60 12/07/19 05:30 72 28 111/63 (79) 98 12/07/19 05:00 70 25 109/60 (76) 97 12/07/19 05:00 107/63 12/07/19 04:30 68 27 108/64 (79) 97 12/07/19 04:00 99.6 67 28 107/63 (78) 97 12/07/19 04:00 69 12/07/19 04:00 Nasal Cannula 1.0 12/07/19 03:30 68 26 105/74 (84) 97 12/07/19 03:00 67 29 106/63 (77) 96 12/07/19 03:00 106/63 12/07/19 02:30 68 26 106/55 (72) 97 12/07/19 02:00 86 24 118/64 (82) 100 12/07/19 02:00 118/64 12/07/19 01:30 69 24 110/69 (83) 100 12/07/19 01:00 64 20 117/65 (82) 100 12/07/19 01:00 117/65 12/07/19 00:37 116/67 12/07/19 00:30 67 22 116/65 (82) 99 12/07/19 00:00 99.0 63 22 121/65 (83) 100 12/07/19 00:00 121/65 12/07/19 00:00 Nasal Cannula 1.0 12/07/19 00:00 65 12/06/19 23:30 67 22 119/62 (81) 98 12/06/19 23:00 Nasal Cannula 1.0 12/06/19 23:00 65 20 118/64 (82) 99 12/06/19 23:00 118/64 12/06/19 22:34 66 12/06/19 22:30 65 22 115/63 (80) 98 12/06/19 22:15 98.4 66 18 117/69 (85) 98 12/06/19 22:15 117/69 12/06/19 22:00 98.2 66 20 119/70 99 Nasal Cannula 1.0 12/06/19 21:50 98.2 72 20 123/69 97 Nasal Cannula 1.0 12/06/19 21:30 98.2 66 8 118/71 98 Nasal Cannula 1.0 12/06/19 21:15 98.2 66 23 123/77 98 Nasal Cannula 1.0 12/06/19 21:08 98.2 66 20 122/68 99 Nasal Cannula 1.0 12/06/19 21:00 98.2 67 25 122/68 99 Nasal Cannula 1.0 12/06/19 20:55 98.2 65 19 126/70 99 Nasal Cannula 1.0 12/06/19 20:45 98.2 67 14 126/69 98 Nasal Cannula 1.0 12/06/19 20:40 98.2 65 14 121/69 100 Nasal Cannula 1.0 12/06/19 20:35 98.2 63 16 121/70 100 Nasal Cannula 1.0 12/06/19 20:30 98.2 64 14 125/68 100 Nasal Cannula 1.0 12/06/19 20:00 98.2 65 18 121/72 99 Nasal Cannula 1.0 12/06/19 19:00 98.2 65 13 119/65 100 Nasal Cannula 1.0 12/06/19 18:15 98.2 74 16 126/67 100 Nasal Cannula 1.0 12/06/19 18:05 92/56 Height (Feet): 5 Height (Inches): 8.00 Weight (Pounds): 189 Objective not examined to limit COVID19 exposure Microbiology Date/Time Source Procedure Growth Status 12/06/19 17:42 Rectum Received Laboratory Tests Test 12/07/19 05:08 White Blood Count 5.2 K/UL (4.8-10.8) Red Blood Count 4.36 M/UL (4.70-6.10) L Hemoglobin 12.6 G/DL (14.2-18.0) L Hematocrit 37.4 % (42.0-52.0) L Mean Corpuscular Volume 86 FL (80-99) Mean Corpuscular Hemoglobin 28.9 PG (27.0-31.0) Mean Corpuscular Hemoglobin Concent 33.7 G/DL (32.0-36.0) Red Cell Distribution Width 11.0 % (11.6-14.8) L Platelet Count 137 K/UL (150-450) L Mean Platelet Volume 7.0 FL (6.5-10.1) Neutrophils (%) (Auto) 69.8 % (45.0-75.0) Lymphocytes (%) (Auto) 18.9 % (20.0-45.0) L Monocytes (%) (Auto) 10.2 % (1.0-10.0) H Eosinophils (%) (Auto) 0.0 % (0.0-3.0) Basophils (%) (Auto) 1.1 % (0.0-2.0) Sodium Level 142 MMOL/L (136-145) Potassium Level 4.6 MMOL/L (3.5-5.1) Chloride Level 107 MMOL/L (98-107) Carbon Dioxide Level 25 MMOL/L (21-32) Anion Gap 10 mmol/L (5-15) Blood Urea Nitrogen 43 mg/dL (7-18) H Creatinine 1.2 MG/DL (0.55-1.30) Estimat Glomerular Filtration Rate > 60 mL/min (>60) Glucose Level 175 MG/DL (74-106) H Calcium Level 8.6 MG/DL (8.5-10.1) Troponin I 0.054 ng/mL (0.000-0.056) Pro-B-Type Natriuretic Peptide 2706 pg/mL (0-125) H Random Vancomycin Level 11.3 ug/mL Current Medications Medications (Trade) Dose Ordered Sig/Wiley Route PRN Reason Start Time Stop Time Status Last Admin Dose Admin Acetaminophen (Tylenol) 650 mg Q6H PRN ORAL For Headache 12/07/19 15:45 01/06/20 15:44 12/07/19 16:14 Cefepime HCl 1 gm/ Dextrose 55 ml @ 110 mls/hr Q12H IVPB 12/07/19 20:00 12/14/19 19:59 Chlorhexidine Gluconate (Milagro-Hex 2%) 1 applic DAILY@2000 TOPIC 12/07/19 20:00 03/06/20 19:59 Gabapentin (Neurontin) 300 mg Q8HR ORAL 12/07/19 00:00 01/06/20 00:00 12/07/19 15:01 Levetiracetam (Keppra) 1,000 mg Q12HR ORAL 12/07/19 00:00 01/06/20 00:00 12/07/19 08:24 Lorazepam (Ativan 2mg/ml 1ml) 1 mg EVERY 6 HOURS PRN IV For Anxiety 12/07/19 16:00 12/14/19 15:59 Memantine (Namenda) 5 mg DAILY ORAL 12/07/19 17:00 01/06/20 16:59 Norepinephrine Bitartrate 4 mg/ Dextrose 250 ml @ 0 mls/hr Q24H PRN IV For hypotension 12/06/19 23:00 01/05/20 22:59 12/07/19 10:25 Sodium Chloride 1,000 ml @ 75 mls/hr [id number] IV 12/06/19 23:00 01/05/20 22:59 12/07/19 15:01 Vancomycin HCl (Vanco rx to dose) 1 ea DAILY PRN MISC Per rx protocol 12/06/19 15:00 01/05/20 14:59 Vancomycin HCl 750 mg/Dextrose 275 ml @ 183.333 mls/hr Q12H IVPB 12/07/19 09:00 12/12/19 08:59 12/07/19 10:22 Sujatha Sanchez M.D. Dec 07, 2019 16:29
--- NOTE | 2019-12-07 17:11 | NUR ---
PT Note PT joanna completed, treatment initiated. Patient is alert, cooperative. He has muscle weakness, requiring extensive assist in bed mobility; unable to sit/stand. Patient can benefit from PT services to increase his muscle strength and balance to improve his functional mobility. Addendum: 12/07/19 at 1711 by HARINDER WESTFALL PT Amended: Links added.
--- NOTE | 2019-12-07 18:00 | NUR ---
NURSE NOTES: Pt stable,temp rechecked,T99 F orally,refused dinner.
[2019-12-07] MEDS: Memantine 5 MG TAB ORAL SCH (18:08)
--- NOTE | 2019-12-07 19:20 | NUR ---
HAND-OFF: Report given to Adi Watts RN.
--- NOTE | 2019-12-07 19:30 | NUR ---
NURSE NOTES: received report from BARBARA Read. Pt is restring on the bed and awake and alert and forgetful. On O2 1L via nasal cannula and SaO2 99-100% noted. Iv site intact and no sign of infiltration noted. Pt has Rt. femoral TLC and dressing is clean and dry. On running with Levophed drip 2mcg/min and BP is stable. Denied pain at this time. Pt has Mosqueda cath and patent and drainage well. On awake overnight monitor and noted SR. pt was done PT therapy today. Placed fall and seizure precaution. Will continue to care plan.
[2019-12-07] MEDS: Dyna-Hex 2% Top Sol 2oz TOPIC SCH (19:53)
[2019-12-07] MEDS: Cefepime HCl 1 GM in D5W 55 ML IVPB SCH (19:53)
--- NOTE | 2019-12-07 22:00 | NUR ---
NURSE NOTES: Pt is sleeping on the bed and no sign of acute distress noted. Bp is stable with Levophed drip @ 1mcg/min. Placed fall precaution. Will continue to care plan.
[2019-12-08] VITALS (49 sets, daily range): BP systolic 86–129; BP diastolic 56–79
--- NOTE | 2019-12-08 | NUR ---
NURSE NOTES: no acute resp distress noted
--- NOTE | 2019-12-08 | NUR ---
NURSE NOTES: Pt is sleeping on the bed and no sign of acute distress noted. Checked BP: 112/71mmHg. Held Levophed drip at this time. Will continue to monitor any change of condition. Addendum: 12/08/19 at 0224 by ADRIAN BUNN RN RN Noted BT: 100.5F via Axillary. Applied cooling measure and given tylenol Prn med. Will continue to monitor any change of condition.
--- NOTE | 2019-12-08 02:08 | NUR ---
NURSE NOTES: Pt is sleeping on the bed. On O2 1L via nasal cannula and SaO2 97% noted. Noted BP: 86/56 mmHg. Resume Levophed drip @ 2mcg/min. Changed Position. Will continue to monitor any grider of condition.
--- NOTE | 2019-12-08 04:00 | NUR ---
NURSE NOTES: Morning care was done. Noted small amount BM. Cleaned Pt and applied lotion and cream. Rechecked BP 119/67mmHg. decreased Levophed drip @ 1mcg/hr. Noted BT: 99.3F. Keep cooling measure. Will continue to monitor any change of condition.
--- NOTE | 2019-12-08 05:00 | Consultation ---
DATE OF CONSULTATION: HISTORY OF PRESENT ILLNESS: The patient is a 69-year-old male patient who has altered mental status. He came into the hospital confused and disorganized, who was originally brought into the ER, but he ended up in the ICU because he has altered mental status, hypotension, sepsis, and rule out COVID-19, so he in the ICU. He is very confused, disorganized, and has mood lability. He has got no logical plan for his own self-care, feelings of helplessness, hopelessness, low energy, poor appetite, loss of interest in activity. He does have altered mental status, confusion. Apparently, his cognition has declined significantly below his baseline, worsened by his stress with medical illness. That is why, daily psychiatric consultation requested to try to help this patient's cognition improve or at least prevent any further decline in his cognition. Also, he does have some confusion, some disorganized thought process, and altered mental status throughout hospital course. He is a very poor historian, so lot of information had to be obtained from the patient's chart review. PAST MEDICAL HISTORY: Seizure disorder, aphasia, weakness, COPD, diabetes. ALLERGIES: He has got no known drug allergies. PSYCHOTROPIC MEDICATIONS ON ADMISSION: This patient is on a psychotropic medication regimen consisting of Neurontin 300 mg q.8 hours. FAMILY PSYCHIATRIC HISTORY: Unknown. PAIN ASSESSMENT: 10/21 pain. DEVELOPMENTAL PROBLEMS: Denies. PSYCHIATRIC HISTORY: He is a poor historian. He has major depressive disorder, mild, recurrent with psychotic features, rule out dementia with psychosis. SOCIAL HISTORY: The patient is currently living in [facility], financially supported by [facility] and Medicare. STRENGTHS: He is motivated to get better and has a place to live. WEAKNESSES: Impulsive minimal support system. MENTAL STATUS EXAMINATION: This is a 69-year-old male patient. His appearance is disheveled. His attitude is irritable and agitated. Affect is guarded and restricted. His intellect is poor. Mood, depressed and anxious. Motor activity, psychomotor agitation. Attention span is poor because he cannot do serial 7's or spell world backwards. Orientation x2 to person and place, but not time and situation. Speech is nonsensical. Thought process, disorganized and illogical. Thought content, auditory hallucinations, paranoid delusions. Perception is poor because of perceptual disturbance such as auditory hallucinations and paranoid delusions. Abstract reasoning is poor because he does not proverbs, only has concrete thinking. Short-term memory 3/3 recall. Long-term memory is poor because long-term events of his life. Insight and judgement poor. DIAGNOSIS: Major depressive disorder, mild, recurrent with psychotic features, rule out dementia with psychosis. PLAN: Treat him with Namenda 5 mg daily and Neurontin 300 mg 3 times a day, Ativan 1 mg IV every 6 hours p.r.n. anxiety, agitation. A 20 minutes of insight-oriented psychotherapy to help him recognize his psychiatric and physical symptoms to help better cognition and better orientation on the unit and better impulse control. Chart reviewed. Discussed with staff. Patient was seen and assessed at bedtime. I would like to thank, Dr. Tee Novoa, for this consultation. Mirna Adkins M.D. DR: RUFUS JOB#: [id number] CC:
--- NOTE | 2019-12-08 06:00 | NUR ---
NURSE NOTES: Running Levophed drip @ 1mcg/min. BP is stable. repositioned. Provide oral hydration. Will continue to care plan.
[2019-12-08 06:10] LABS: BASOPHILS % (AUTO) 0.5 % (0.0-2.0); EOSINOPHILS % (AUTO) 0.1 % (0.0-3.0); HEMATOCRIT 35.5 % (42.0-52.0); HEMOGLOBIN 11.9 G/DL (14.2-18.0); LYMPHOCYTES % (AUTO) 17.4 % (20.0-45.0); MEAN CORPUSCULAR VOLUME 86 FL (80-99); MONOCYTES % (AUTO) 6.8 % (1.0-10.0); NEUTROPHILS % (AUTO) 75.3 % (45.0-75.0); PLATELET COUNT 121 K/UL (150-450); RED BLOOD COUNT 4.13 M/UL (4.70-6.10); RED CELL DISTRIBUTION WIDTH 11.1 % (11.6-14.8); WHITE BLOOD COUNT 5.6 K/UL (4.8-10.8)
[2019-12-08 06:13] LABS: ANION GAP 7 mmol/L (5-15); BLOOD UREA NITROGEN 28 mg/dL (7-18); CALCIUM 8.5 MG/DL (8.5-10.1); CARBON DIOXIDE 28 MMOL/L (21-32); CHLORIDE 104 MMOL/L (98-107); CREATININE 1.1 MG/DL (0.55-1.30); POTASSIUM 4.3 MMOL/L (3.5-5.1); SODIUM 139 MMOL/L (136-145)
--- NOTE | 2019-12-08 07:19 | NUR ---
HAND-OFF: Report given to Ayesha Thompson. Pt is sleeing on the bed and no sign of acute distress noted.
--- NOTE | 2019-12-08 07:20 | NUR ---
NURSE NOTES: Late entry: PT and report received from BARBARA Joshi; PT received in bed AAOx2-3 cooperative, no S/S of respiratory distress noted upon enter room on 1L-NC; cardiac rn shows HR 70, SR; provided breakfast clear liquid diet as ordered but PT refused breakfast left at bedside advised PT to eat if possible; montero intact patent draining at lowest position; PIV L-hand 20g intact patent flushes well, R-fem TLC infusing levophed @ 1mcg/min and NS @ 75ml/hr patent intact flushes well. Will continue to monitor PT throughout shift.
--- NOTE | 2019-12-08 07:40 | NUR ---
RD ASSESSMENT & RECOMMENDATIONS SEE CARE ACTIVITY FOR COMPLETE ASSESSMENT DAILY ESTIMATED NEEDS: Needs based on Cardiac 74kg abw 25-30 kcals/kg 4448-1215 total kcals 1-1.2 g protein/kg 74-89 g total protein 25-30 mL/kg 8590-7155 total fluid mLs NUTRITION DIAGNOSIS: Altered nutrition related lab values r/t clinical status as evidenced by elev BG (146 175), febrile (tmax 101.5) CURRENT DIET: CLD PO DIET RECOMMENDATIONS: Advance as able to Low Na ADDITIONAL RECOMMENDATIONS: 1) Check HgA1C -> pt w/elev BG (146-175) 2) Add Ensure Clear w/ CLD-> advance diet as able 3) Monitor ICU status, respiratory status 4) Obtain a calibrated bed scale wt 5) Rec IMPORT SPECIALIST eval prior to advancing diet
[2019-12-08] MEDS: Vancomycin 750mg/D5W 275ml IVPB SCH ×2 (08:24)
[2019-12-08] MEDS: Memantine 5 MG TAB ORAL SCH (08:25)
[2019-12-08] MEDS: Cefepime HCl 1 GM in D5W 55 ML IVPB SCH ×2 (08:25→20:26)
--- NOTE | 2019-12-08 08:42 | General Progress Note ---
Assessment/Plan Problem List: (1) Suspected COVID-19 virus infection ICD Codes: Z20.828 - Contact with and (suspected) exposure to other viral communicable diseases SNOMED: 168979690 (2) Anemia ICD Codes: D64.9 - Anemia, unspecified SNOMED: 724296982 (3) Weak ICD Codes: R53.1 - Weakness SNOMED: 33940492 (4) COPD (chronic obstructive pulmonary disease) ICD Codes: J44.9 - Chronic obstructive pulmonary disease, unspecified SNOMED: 25573722 (5) Diabetes ICD Codes: E11.9 - Type 2 diabetes mellitus without complications SNOMED: 83263930 (6) Epileptic seizure, generalized ICD Codes: G40.309 - Generalized idiopathic epilepsy and epileptic syndromes, not intractable, without status epilepticus SNOMED: 31145906 (7) Altered mental status ICD Codes: R41.82 - Altered mental status, unspecified SNOMED: 731842731 Qualifiers: Qualified Codes: R41.82 - Altered mental status, unspecified (8) Hypotension ICD Codes: I95.9 - Hypotension, unspecified SNOMED: 80814923 Qualifiers: Qualified Codes: I95.9 - Hypotension, unspecified Status: unchanged Assessment/Plan: o2 pulm tx abx pt diet cbc bmp am Subjective Constitutional: Reports: weakness Allergies: Coded Allergies: No Known Allergies (Unverified , 07/28/14) All Systems: reviewed and negative except above Subjective o2nc calm in bed Objective Last 24 Hour Vital Signs Date Time Temp Pulse Resp B/P (MAP) Pulse Ox O2 Delivery O2 Flow Rate FiO2 12/08/19 07:00 74 27 121/72 (88) 97 12/08/19 07:00 121/71 12/08/19 06:30 72 31 123/75 (91) 97 12/08/19 06:00 128/73 12/08/19 06:00 71 28 128/73 (91) 97 12/08/19 05:30 70 25 125/76 (92) 99 12/08/19 05:00 65 22 110/76 (87) 100 12/08/19 05:00 110/76 12/08/19 04:30 65 25 118/67 (84) 98 12/08/19 04:00 99.3 68 27 119/67 (84) 99 4/26/20 04:00 119/67 12/08/19 04:00 67 12/08/19 04:00 Nasal Cannula 1.0 12/08/19 03:30 68 30 117/79 (92) 97 12/08/19 03:00 65 21 120/68 (85) 99 12/08/19 03:00 120/68 12/08/19 02:30 61 22 109/63 (78) 99 12/08/19 02:08 86/56 12/08/19 02:08 65 26 86/56 (66) 97 12/08/19 02:04 65 26 90/57 (68) 97 12/08/19 02:00 65 24 97/57 (70) 96 12/08/19 02:00 65 24 97/57 (70) 96 12/08/19 01:30 69 23 105/60 (75) 97 12/08/19 01:00 66 27 109/64 (79) 97 12/08/19 00:30 70 22 107/66 (80) 97 12/08/19 00:26 99.5 12/08/19 00:00 62 12/08/19 00:00 100.5 68 25 112/71 (85) 98 12/08/19 00:00 112/71 12/08/19 00:00 Nasal Cannula 1.0 12/07/19 23:00 64 22 115/67 (83) 99 12/07/19 23:00 115/67 12/07/19 22:30 66 26 110/64 (79) 99 12/07/19 22:00 67 19 112/65 (81) 96 12/07/19 22:00 112/62 12/07/19 21:30 65 21 106/68 (81) 99 12/07/19 21:00 116/67 12/07/19 21:00 66 19 116/67 (83) 99 12/07/19 20:00 98.0 60 21 99/63 (75) 100 12/07/19 20:00 99/63 12/07/19 20:00 Nasal Cannula 1.0 12/07/19 20:00 60 12/07/19 19:00 64 20 114/65 (81) 99 12/07/19 19:00 114/65 12/07/19 18:00 99.0 67 27 90/55 (67) 97 12/07/19 17:00 70 27 105/56 (72) 97 12/07/19 16:00 67 12/07/19 16:00 101.5 69 28 97/59 (72) 100 12/07/19 16:00 Nasal Cannula 1.0 12/07/19 15:00 100.5 69 27 104/58 (73) 98 12/07/19 14:00 69 27 110/63 (79) 100 12/07/19 13:00 101.3 67 109/60 (76) 12/07/19 13:00 109/60 12/07/19 12:00 Nasal Cannula 1.0 12/07/19 12:00 63 27 112/80 (91) 98 12/07/19 12:00 99/61 12/07/19 12:00 71 12/07/19 11:00 67 27 100/62 (75) 98 12/07/19 11:00 100/62 12/07/19 10:25 105/61 12/07/19 10:06 105/61 12/07/19 10:00 68 27 109/65 (80) 100 12/07/19 09:00 109/58 12/07/19 09:00 66 27 109/58 (75) 97 Intake and Output 12/07/19 12/08/19 19:00 07:00 Intake Total 3383.333 ml 1376.50 ml Output Total 1075 ml 910 ml Balance 2308.333 ml 466.50 ml Intake Oral 2500 ml 150 ml IV Total 763.333 ml 1226.50 ml Other 120 ml Output Urine Total 1075 ml 910 ml # Bowel Movements 1 2 Laboratory Tests 12/08/19 04:00: White Blood Count 5.6, Red Blood Count 4.13L, Hemoglobin 11.9L, Hematocrit 35.5L , Mean Corpuscular Volume 86, Mean Corpuscular Hemoglobin 28.7, Mean Corpuscular Hemoglobin Concent 33.4, Red Cell Distribution Width 11.1L, Platelet Count 121L, Mean Platelet Volume 6.6, Neutrophils (%) (Auto) 75.3H, Lymphocytes (%) (Auto) 17.4L, Monocytes (%) (Auto) 6.8, Eosinophils (%) (Auto) 0.1, Basophils (%) (Auto) 0.5, Sodium Level 139, Potassium Level 4.3, Chloride Level 104, Carbon Dioxide Level 28, Anion Gap 7, Blood Urea Nitrogen 28H, Creatinine 1.1, Estimat Glomerular Filtration Rate > 60, Glucose Level 146H, Calcium Level 8.5 Height (Feet): 5 Height (Inches): 8.00 Weight (Pounds): 189 General Appearance: lethargic EENT: normal ENT inspection Neck: normal alignment Cardiovascular: normal rate, regular rhythm Respiratory/Chest: no respiratory distress, no accessory muscle use Extremities: normal inspection Skin: normal pigmentation Tee Novoa Dec 08, 2019 08:42
--- NOTE | 2019-12-08 10:00 | NUR ---
NURSE NOTES: VSS, no S/S of respiratory distress on 1L-NC, saturating well @ 97%, will continue to monitor.
--- NOTE | 2019-12-08 12:40 | Pulmonology Progress Note ---
Assessment/Plan Assessment/Plan IMPRESSION: 1. Cardiomyopathy. 2. Hypotension. 3. Left lung pneumonia. 4. group home resident. 5. Rule out COVID-19. DISCUSSION: 1. Admit to the hospital. 2. Continue current medications. 3. Continue pressors. 4. Oxygen. 5. Pulmonary hygiene. 6. Broad-spectrum antibiotics. 7. I will follow. Mike Montalvo M.D. Subjective Interval Events: Looking better; on low dose levophed; febrile Constitutional: Reports: no symptoms Respiratory: Reports: no symptoms Cardiovascular: Reports: no symptoms Gastrointestinal/Abdominal: Reports: no symptoms Genitourinary: Reports: no symptoms Neurologic: Reports: no symptoms Allergies: Coded Allergies: No Known Allergies (Unverified , 07/28/14) All Systems: reviewed and negative except above Objective Last 24 Hour Vital Signs Date Time Temp Pulse Resp B/P (MAP) Pulse Ox O2 Delivery O2 Flow Rate FiO2 12/08/19 12:00 103/64 12/08/19 12:00 Nasal Cannula 1.0 12/08/19 11:00 98/64 12/08/19 11:00 68 26 97/65 (76) 97 12/08/19 10:30 72 26 114/69 (84) 97 12/08/19 10:00 70 27 110/71 (84) 98 12/08/19 10:00 110/71 12/08/19 09:30 100.3 72 26 121/72 (88) 97 12/08/19 09:21 101.0 12/08/19 09:00 Nasal Cannula 1.0 12/08/19 09:00 128/75 12/08/19 09:00 101.3 71 30 128/75 (92) 97 12/08/19 08:30 72 30 129/70 (89) 97 12/08/19 08:00 68 12/08/19 08:00 122/73 12/08/19 08:00 71 27 122/73 (89) 97 12/08/19 07:30 71 26 118/69 (85) 97 12/08/19 07:00 74 27 121/72 (88) 97 12/08/19 07:00 121/71 12/08/19 06:30 72 31 123/75 (91) 97 12/08/19 06:00 128/73 12/08/19 06:00 71 28 128/73 (91) 97 12/08/19 05:30 70 25 125/76 (92) 99 12/08/19 05:00 65 22 110/76 (87) 100 12/08/19 05:00 110/76 12/08/19 04:30 65 25 118/67 (84) 98 12/08/19 04:00 99.3 68 27 119/67 (84) 99 12/08/19 04:00 119/67 12/08/19 04:00 67 12/08/19 04:00 Nasal Cannula 1.0 12/08/19 03:30 68 30 117/79 (92) 97 12/08/19 03:00 65 21 120/68 (85) 99 12/08/19 03:00 120/68 12/08/19 02:30 61 22 109/63 (78) 99 12/08/19 02:08 86/56 12/08/19 02:08 65 26 86/56 (66) 97 12/08/19 02:04 65 26 90/57 (68) 97 12/08/19 02:00 65 24 97/57 (70) 96 12/08/19 02:00 65 24 97/57 (70) 96 12/08/19 01:30 69 23 105/60 (75) 97 12/08/19 01:00 66 27 109/64 (79) 97 12/08/19 00:30 70 22 107/66 (80) 97 12/08/19 00:26 99.5 12/08/19 00:00 62 12/08/19 00:00 100.5 68 25 112/71 (85) 98 12/08/19 00:00 112/71 12/08/19 00:00 Nasal Cannula 1.0 12/07/19 23:00 64 22 115/67 (83) 99 12/07/19 23:00 115/67 12/07/19 22:30 66 26 110/64 (79) 99 12/07/19 22:00 67 19 112/65 (81) 96 4/25/20 22:00 112/62 12/07/19 21:30 65 21 106/68 (81) 99 12/07/19 21:00 116/67 12/07/19 21:00 66 19 116/67 (83) 99 12/07/19 20:00 98.0 60 21 99/63 (75) 100 12/07/19 20:00 99/63 12/07/19 20:00 Nasal Cannula 1.0 12/07/19 20:00 60 12/07/19 19:00 64 20 114/65 (81) 99 12/07/19 19:00 114/65 12/07/19 18:00 99.0 67 27 90/55 (67) 97 12/07/19 17:00 70 27 105/56 (72) 97 12/07/19 16:00 67 12/07/19 16:00 101.5 69 28 97/59 (72) 100 12/07/19 16:00 Nasal Cannula 1.0 12/07/19 15:00 100.5 69 27 104/58 (73) 98 12/07/19 14:00 69 27 110/63 (79) 100 12/07/19 13:00 101.3 67 109/60 (76) 12/07/19 13:00 109/60 Intake and Output 12/07/19 12/08/19 19:00 07:00 Intake Total 3383.333 ml 1376.50 ml Output Total 1075 ml 910 ml Balance 2308.333 ml 466.50 ml Intake Oral 2500 ml 150 ml IV Total 763.333 ml 1226.50 ml Other 120 ml Output Urine Total 1075 ml 910 ml # Bowel Movements 1 2 General Appearance: no acute distress HEENT: normocephalic Respiratory/Chest: chest wall non-tender, lungs clear Cardiovascular: normal peripheral pulses Abdomen: normal bowel sounds Microbiology Date/Time Source Procedure Growth Status 12/06/19 10:14 Blood Blood Culture - Preliminary NO GROWTH AFTER 24 HOURS Resulted 12/06/19 10:14 Blood Blood Culture - Preliminary NO GROWTH AFTER 24 HOURS Resulted 12/06/19 17:42 Nasal Nares MRSA Culture - Final NO METHICILLIN RESISTANT STAPH AUREUS... Complete 12/06/19 17:42 Rectum VRE Culture - Final NO VANCOMYCIN RESISTANT ENTEROCOCCUS ... Complete 12/06/19 17:42 Rectum - Final NO CARBAPENEM-RESISTANT ENTEROBACTERI... Complete Laboratory Tests 12/08/19 04:00: White Blood Count 5.6, Red Blood Count 4.13L, Hemoglobin 11.9L, Hematocrit 35.5L , Mean Corpuscular Volume 86, Mean Corpuscular Hemoglobin 28.7, Mean Corpuscular Hemoglobin Concent 33.4, Red Cell Distribution Width 11.1L, Platelet Count 121L, Mean Platelet Volume 6.6, Neutrophils (%) (Auto) 75.3H, Lymphocytes (%) (Auto) 17.4L, Monocytes (%) (Auto) 6.8, Eosinophils (%) (Auto) 0.1, Basophils (%) (Auto) 0.5, Sodium Level 139, Potassium Level 4.3, Chloride Level 104, Carbon Dioxide Level 28, Anion Gap 7, Blood Urea Nitrogen 28H, Creatinine 1.1, Estimat Glomerular Filtration Rate > 60, Glucose Level 146H, Calcium Level 8.5 Current Medications Medications (Trade) Dose Ordered Sig/Wiley Route PRN Reason Start Time Stop Time Status Last Admin Dose Admin Acetaminophen (Tylenol) 650 mg Q6H PRN ORAL Temp >100.5 12/08/19 08:45 01/07/20 08:44 12/08/19 08:44 Cefepime HCl 1 gm/ Dextrose 55 ml @ 110 mls/hr Q12H IVPB 12/07/19 20:00 12/14/19 19:59 12/08/19 08:25 Chlorhexidine Gluconate (Milagro-Hex 2%) 1 applic DAILY@2000 TOPIC 12/07/19 20:00 03/06/20 19:59 12/07/19 19:53 Gabapentin (Neurontin) 300 mg Q8HR ORAL 12/07/19 00:00 01/06/20 00:00 12/08/19 06:07 Levetiracetam (Keppra) 1,000 mg Q12HR ORAL 12/07/19 00:00 01/06/20 00:00 12/08/19 08:25 Lorazepam (Ativan 2mg/ml 1ml) 1 mg EVERY 6 HOURS PRN IV For Anxiety 12/07/19 16:00 12/14/19 15:59 Memantine (Namenda) 5 mg DAILY ORAL 12/07/19 17:00 01/06/20 16:59 12/08/19 08:25 Norepinephrine Bitartrate 4 mg/ Dextrose 250 ml @ 0 mls/hr Q24H PRN IV For hypotension 12/06/19 23:00 01/05/20 22:59 12/07/19 10:25 Sodium Chloride 1,000 ml @ 75 mls/hr [id number] IV 12/06/19 23:00 01/05/20 22:59 12/08/19 03:59 Vancomycin HCl (Vanco rx to dose) 1 ea DAILY PRN MISC Per rx protocol 12/06/19 15:00 01/05/20 14:59 Vancomycin HCl 750 mg/Dextrose 275 ml @ 183.333 mls/hr Q12H IVPB 12/07/19 09:00 12/12/19 08:59 12/08/19 08:24 Mike Montalvo MD Dec 08, 2019 12:40
--- NOTE | 2019-12-08 13:00 | NUR ---
NURSE NOTES: Encouraged PT to eat, tried feeding PT, not wanting to eat his clear liquid diet. Attempted to make him drink some ensure, only drank small amount with meds, and refused. Will continue to monitor PT.
--- NOTE | 2019-12-08 16:30 | NUR ---
NURSE NOTES: PT had 1 BM soft medium sized, cleaned and dried, skin remains intact, repositioned, linens changed, VSS on levophed 1mcg/min will continue to monitor PT.
--- NOTE | 2019-12-08 17:30 | Progress Note ---
DATE: 12/08/2019 SUBJECTIVE: This is a 69-year-old male patient with altered mental status. Right now, he is in ICU, rule out COVID. He has altered mental status, confusion, disorganized thought process. That is why, his attending has requested daily psychiatric consultation. MENTAL STATUS EXAMINATION: This is a 69-year-old male. His appearance is disheveled. Attitude, irritable and agitated. Affect, guarded and restricted. Intellect poor. Mood, depressed, anxious. Motor activity, psychomotor agitation. Attention span is poor. Orientation x2. Speech is low volume, slurred. Thought process, disorganized and illogical. Insight and judgment is poor. DIAGNOSIS: Paranoid schizophrenia, acute exacerbation. PLAN: My plan for this patient is to treat him with a medication regimen consisting of Namenda 5 mg daily, Ativan 1 mg IV every 6 hours p.r.n. anxiety, agitation. Provided him with 20 minutes of cognitive behavioral therapy to help him identify his automatic negative thoughts, help him convert his negative thoughts to more positive thoughts to reduce depression, anxiety, and mood lability. Chart reviewed. Discussed with staff. Seen and assessed in his room. Mirna Adkins M.D. DR: JANETT JOB#: [id number] CC:
--- NOTE | 2019-12-08 19:17 | NUR ---
HAND-OFF: Report and PT given to BARBARA Nesbitt.
--- NOTE | 2019-12-08 20:00 | NUR ---
NURSE NOTES: RECEIVED REPORT FROM ATUL JIMENEZ PT AWAKE AND ALERT COOPERATIVE AND FOLLOWS COMMAND REPOSITION AND SUCTION IV SITE GOOD IV FUSING WELL TAKING PO MEDICATION
[2019-12-08] MEDS: Dyna-Hex 2% Top Sol 2oz TOPIC SCH (20:26)
--- NOTE | 2019-12-08 22:00 | NUR ---
NURSE NOTES: reposition and suction
[2019-12-08] MEDS: Vancomycin 1 GM in D5W 275 ML IVPB SCH (22:48)
[2019-12-09] VITALS (41 sets, daily range): BP systolic 93–130; BP diastolic 63–98
--- NOTE | 2019-12-09 02:00 | NUR ---
NURSE NOTES: asleep condition un change
--- NOTE | 2019-12-09 04:00 | NUR ---
NURSE NOTES: complete bed bath oral care and back care done reposition and suction
--- NOTE | 2019-12-09 06:00 | NUR ---
NURSE NOTES: temp oral 100.5 tynol po given
[2019-12-09 06:06] LABS: BASOPHILS % (AUTO) 0.4 % (0.0-2.0); EOSINOPHILS % (AUTO) 0.1 % (0.0-3.0); HEMATOCRIT 35.9 % (42.0-52.0); HEMOGLOBIN 12.1 G/DL (14.2-18.0); LYMPHOCYTES % (AUTO) 15.7 % (20.0-45.0); MEAN CORPUSCULAR VOLUME 85 FL (80-99); MONOCYTES % (AUTO) 7.4 % (1.0-10.0); NEUTROPHILS % (AUTO) 76.5 % (45.0-75.0); PLATELET COUNT 120 K/UL (150-450); RED BLOOD COUNT 4.23 M/UL (4.70-6.10); RED CELL DISTRIBUTION WIDTH 10.8 % (11.6-14.8); WHITE BLOOD COUNT 5.8 K/UL (4.8-10.8)
[2019-12-09 06:31] LABS: ANION GAP 7 mmol/L (5-15); BLOOD UREA NITROGEN 19 mg/dL (7-18); CALCIUM 8.6 MG/DL (8.5-10.1); CARBON DIOXIDE 29 MMOL/L (21-32); CHLORIDE 100 MMOL/L (98-107); SODIUM 136 MMOL/L (136-145)
--- NOTE | 2019-12-09 07:37 | NUR ---
HAND-OFF: Report given to giuliana nixon using sbar.
--- NOTE | 2019-12-09 07:38 | NUR ---
NURSE NOTES: Patient received in bed from Tatum JIMENEZ. Patient is a/o x 2-3 cooperative and calm in bed, no s/s of respiratory distress noted. patient is on 1L NC. patient on a cardiac surgeon, SR HR of 74. patient provided with clear liquid diet at bedside. Mosqueda Catheter intact, patent, draining yellow urine without complications. Patient's IV site Lt hand 20g intact, patent. patient's right femoral TLC infusing Levophed @ 1mcg/min and NS @ 75ml/hr without complications. Call light within reach, bed locked and in lowest position. Will continue to monitor.
--- NOTE | 2019-12-09 07:39 | NUR ---
NURSE NOTES: patient on a isolation precaution for Covid-19 positive. notified to CN. all safety measures applied.
[2019-12-09] MEDS: Cefepime HCl 1 GM in D5W 55 ML IVPB SCH ×2 (08:40→20:31)
[2019-12-09] MEDS: Memantine 5 MG TAB ORAL SCH (08:40)
--- NOTE | 2019-12-09 09:00 | General Progress Note ---
Assessment/Plan Problem List: (1) Suspected COVID-19 virus infection ICD Codes: Z20.828 - Contact with and (suspected) exposure to other viral communicable diseases SNOMED: 297551660 (2) Anemia ICD Codes: D64.9 - Anemia, unspecified SNOMED: 036226426 (3) Weak ICD Codes: R53.1 - Weakness SNOMED: 48288458 (4) COPD (chronic obstructive pulmonary disease) ICD Codes: J44.9 - Chronic obstructive pulmonary disease, unspecified SNOMED: 03553307 (5) Diabetes ICD Codes: E11.9 - Type 2 diabetes mellitus without complications SNOMED: 86061866 (6) Epileptic seizure, generalized ICD Codes: G40.309 - Generalized idiopathic epilepsy and epileptic syndromes, not intractable, without status epilepticus SNOMED: 16889160 (7) Altered mental status ICD Codes: R41.82 - Altered mental status, unspecified SNOMED: 769151212 Qualifiers: Qualified Codes: R41.82 - Altered mental status, unspecified (8) Hypotension ICD Codes: I95.9 - Hypotension, unspecified SNOMED: 72726880 Qualifiers: Qualified Codes: I95.9 - Hypotension, unspecified Status: unchanged Assessment/Plan: o2 pulm tx abx pt diet cbc bmp am Subjective Constitutional: Reports: weakness Allergies: Coded Allergies: No Known Allergies (Unverified , 07/28/14) All Systems: reviewed and negative except above Subjective o2nc calm in bed in icu Objective Last 24 Hour Vital Signs Date Time Temp Pulse Resp B/P (MAP) Pulse Ox O2 Delivery O2 Flow Rate FiO2 12/09/19 08:30 72 26 93/63 (73) 97 12/09/19 08:00 117/72 12/09/19 08:00 71 21 117/72 (87) 97 12/09/19 07:30 76 27 116/70 (85) 97 12/09/19 07:00 115/74 12/09/19 07:00 70 28 115/74 (88) 97 12/09/19 06:00 100.5 73 32 113/71 (85) 97 12/09/19 06:00 123/71 12/09/19 05:57 99.6 12/09/19 05:30 69 32 123/71 (88) 97 12/09/19 05:00 115/67 12/09/19 05:00 85 29 110/98 (102) 94 12/09/19 04:30 69 28 115/67 (83) 98 12/09/19 04:00 100.0 67 29 119/66 (83) 96 12/09/19 04:00 115/67 12/09/19 04:00 Nasal Cannula 1.0 12/09/19 04:00 67 12/09/19 03:30 63 28 109/70 (83) 97 12/09/19 03:00 65 28 108/74 (85) 97 12/09/19 03:00 109/70 12/09/19 02:30 68 29 114/74 (87) 98 12/09/19 02:00 99.5 63 23 117/68 (84) 99 12/09/19 02:00 114/74 12/09/19 01:30 65 24 121/72 (88) 98 12/09/19 01:00 121/72 12/09/19 01:00 67 27 117/74 (88) 96 12/09/19 00:30 64 25 116/72 (87) 98 12/09/19 00:00 99.0 64 24 117/70 (86) 97 12/09/19 00:00 68 12/09/19 00:00 Nasal Cannula 1.0 12/09/19 00:00 116/72 12/08/19 23:30 68 24 119/71 (87) 98 12/08/19 23:00 70 21 120/74 (89) 98 12/08/19 23:00 119/71 12/08/19 22:30 69 29 119/74 (89) 98 12/08/19 22:00 70 30 125/76 (92) 98 12/08/19 22:00 125/76 12/08/19 21:30 72 28 119/73 (88) 97 12/08/19 21:00 70 30 122/75 (91) 97 12/08/19 21:00 119/73 12/08/19 20:30 71 33 123/71 (88) 96 12/08/19 20:00 Nasal Cannula 1.0 12/08/19 20:00 123/71 12/08/19 20:00 65 12/08/19 20:00 99.9 73 32 122/73 (89) 97 12/08/19 19:30 69 30 122/78 (93) 97 12/08/19 19:00 67 28 123/74 (90) 97 12/08/19 19:00 122/78 12/08/19 18:00 66 26 121/74 (90) 96 12/08/19 18:00 121/74 12/08/19 17:30 68 25 123/73 (90) 98 12/08/19 17:00 72 32 127/71 (89) 98 12/08/19 17:00 127/71 12/08/19 16:30 72 27 114/77 (89) 98 12/08/19 16:00 71 27 129/76 (93) 98 12/08/19 16:00 70 12/08/19 16:00 Nasal Cannula 1.0 12/08/19 16:00 129/76 12/08/19 15:30 100.0 66 26 121/68 (85) 98 12/08/19 15:00 71 30 120/71 (87) 97 12/08/19 15:00 120/71 12/08/19 14:30 70 28 129/73 (91) 98 12/08/19 14:00 64 25 115/72 (86) 98 12/08/19 14:00 115/72 12/08/19 13:30 70 26 127/74 (91) 98 12/08/19 13:00 67 21 120/73 (89) 100 12/08/19 13:00 120/73 12/08/19 12:30 66 25 117/62 (80) 98 12/08/19 12:00 69 12/08/19 12:00 103/64 12/08/19 12:00 Nasal Cannula 1.0 12/08/19 12:00 99.9 66 23 103/64 (77) 99 12/08/19 11:30 67 25 102/64 (77) 98 12/08/19 11:00 98/64 12/08/19 11:00 68 26 97/65 (76) 97 12/08/19 10:30 72 26 114/69 (84) 97 12/08/19 10:00 70 27 110/71 (84) 98 12/08/19 10:00 110/71 12/08/19 09:30 100.3 72 26 121/72 (88) 97 Intake and Output 4/26/20 4/27/20 19:00 07:00 Intake Total 1275.000 ml 925.00 ml Output Total 580 ml 495 ml Balance 695.000 ml 430.00 ml Intake Oral 150 ml IV Total 1275.000 ml 775.00 ml Output Urine Total 580 ml 495 ml # Bowel Movements 2 3 Laboratory Tests 12/08/19 20:38: Vancomycin Level Trough 9.9 12/09/19 04:45: White Blood Count 5.8, Red Blood Count 4.23L, Hemoglobin 12.1L, Hematocrit 35.9L , Mean Corpuscular Volume 85, Mean Corpuscular Hemoglobin 28.7, Mean Corpuscular Hemoglobin Concent 33.9, Red Cell Distribution Width 10.8L, Platelet Count 120L, Mean Platelet Volume 7.5, Neutrophils (%) (Auto) 76.5H, Lymphocytes (%) (Auto) 15.7L, Monocytes (%) (Auto) 7.4, Eosinophils (%) (Auto) 0.1, Basophils (%) (Auto) 0.4, Sodium Level 136, Potassium Level 4.0, Chloride Level 100, Carbon Dioxide Level 29, Anion Gap 7, Blood Urea Nitrogen 19H, Creatinine 1.0, Estimat Glomerular Filtration Rate > 60, Glucose Level 164H, Calcium Level 8.6 Height (Feet): 5 Height (Inches): 8.00 Weight (Pounds): 185 General Appearance: lethargic EENT: normal ENT inspection Neck: normal alignment Cardiovascular: normal rate, regular rhythm Respiratory/Chest: no respiratory distress, no accessory muscle use Extremities: normal inspection Skin: normal pigmentation Tee Novoa DO Dec 09, 2019 09:00
[2019-12-09] MEDS: Vancomycin 1 GM in D5W 275 ML IVPB SCH (10:35)
--- NOTE | 2019-12-09 10:58 | NUR ---
NURSE NOTES: notified to Dr. Montalvo regarding patient positive for Covid-10. no new orders at this time.
--- NOTE | 2019-12-09 11:23 | Pulmonology Progress Note ---
Assessment/Plan Assessment/Plan IMPRESSION: 1. Cardiomyopathy. 2. Hypotension. 3. Left lung pneumonia. 4. skilled nursing resident. 5. Positive COVID-19. DISCUSSION: 1. Continue isolation 2. Continue current medications. 3. Continue pressors. 4. Oxygen. 5. Pulmonary hygiene. 6. Broad-spectrum antibiotics. 7. I will follow. Mike Montalvo M.D. Subjective Interval Events: Looking better; on low dose levophed; febrile Constitutional: Reports: no symptoms Respiratory: Reports: no symptoms Cardiovascular: Reports: no symptoms Gastrointestinal/Abdominal: Reports: no symptoms Genitourinary: Reports: no symptoms Neurologic: Reports: no symptoms Allergies: Coded Allergies: No Known Allergies (Unverified , 07/28/14) All Systems: reviewed and negative except above Objective Last 24 Hour Vital Signs Date Time Temp Pulse Resp B/P (MAP) Pulse Ox O2 Delivery O2 Flow Rate FiO2 12/09/19 10:30 71 28 107/75 (86) 97 12/09/19 10:00 74 28 110/72 (85) 97 12/09/19 09:30 71 26 111/68 (82) 97 12/09/19 09:00 75 24 120/74 (89) 98 12/09/19 08:30 72 26 93/63 (73) 97 12/09/19 08:00 Nasal Cannula 1.0 12/09/19 08:00 98.1 71 21 117/72 (87) 97 12/09/19 08:00 117/72 12/09/19 08:00 73 12/09/19 07:30 98.1 76 27 116/70 (85) 97 12/09/19 07:00 115/74 12/09/19 07:00 70 28 115/74 (88) 97 12/09/19 06:00 100.5 73 32 113/71 (85) 97 12/09/19 06:00 123/71 12/09/19 05:57 99.6 12/09/19 05:30 69 32 123/71 (88) 97 12/09/19 05:00 115/67 12/09/19 05:00 85 29 110/98 (102) 94 12/09/19 04:30 69 28 115/67 (83) 98 12/09/19 04:00 100.0 67 29 119/66 (83) 96 12/09/19 04:00 115/67 12/09/19 04:00 Nasal Cannula 1.0 12/09/19 04:00 67 12/09/19 03:30 63 28 109/70 (83) 97 12/09/19 03:00 65 28 108/74 (85) 97 12/09/19 03:00 109/70 12/09/19 02:30 68 29 114/74 (87) 98 12/09/19 02:00 99.5 63 23 117/68 (84) 99 12/09/19 02:00 114/74 12/09/19 01:30 65 24 121/72 (88) 98 12/09/19 01:00 121/72 12/09/19 01:00 67 27 117/74 (88) 96 12/09/19 00:30 64 25 116/72 (87) 98 12/09/19 00:00 99.0 64 24 117/70 (86) 97 12/09/19 00:00 68 12/09/19 00:00 Nasal Cannula 1.0 12/09/19 00:00 116/72 12/08/19 23:30 68 24 119/71 (87) 98 12/08/19 23:00 70 21 120/74 (89) 98 12/08/19 23:00 119/71 12/08/19 22:30 69 29 119/74 (89) 98 12/08/19 22:00 70 30 125/76 (92) 98 12/08/19 22:00 125/76 12/08/19 21:30 72 28 119/73 (88) 97 12/08/19 21:00 70 30 122/75 (91) 97 12/08/19 21:00 119/73 12/08/19 20:30 71 33 123/71 (88) 96 12/08/19 20:00 Nasal Cannula 1.0 12/08/19 20:00 123/71 12/08/19 20:00 65 12/08/19 20:00 99.9 73 32 122/73 (89) 97 12/08/19 19:30 69 30 122/78 (93) 97 12/08/19 19:00 67 28 123/74 (90) 97 12/08/19 19:00 122/78 12/08/19 18:00 66 26 121/74 (90) 96 12/08/19 18:00 121/74 12/08/19 17:30 68 25 123/73 (90) 98 12/08/19 17:00 72 32 127/71 (89) 98 12/08/19 17:00 127/71 12/08/19 16:30 72 27 114/77 (89) 98 12/08/19 16:00 71 27 129/76 (93) 98 12/08/19 16:00 70 12/08/19 16:00 Nasal Cannula 1.0 12/08/19 16:00 129/76 12/08/19 15:30 100.0 66 26 121/68 (85) 98 12/08/19 15:00 71 30 120/71 (87) 97 12/08/19 15:00 120/71 12/08/19 14:30 70 28 129/73 (91) 98 12/08/19 14:00 64 25 115/72 (86) 98 12/08/19 14:00 115/72 12/08/19 13:30 70 26 127/74 (91) 98 12/08/19 13:00 67 21 120/73 (89) 100 12/08/19 13:00 120/73 12/08/19 12:30 66 25 117/62 (80) 98 12/08/19 12:00 69 12/08/19 12:00 103/64 12/08/19 12:00 Nasal Cannula 1.0 12/08/19 12:00 99.9 66 23 103/64 (77) 99 12/08/19 11:30 67 25 102/64 (77) 98 Intake and Output 12/08/19 12/09/19 19:00 07:00 Intake Total 1275.000 ml 925.00 ml Output Total 580 ml 520 ml Balance 695.000 ml 405.00 ml Intake Oral 150 ml IV Total 1275.000 ml 775.00 ml Output Urine Total 580 ml 520 ml # Bowel Movements 2 3 General Appearance: no acute distress HEENT: normocephalic Respiratory/Chest: chest wall non-tender, lungs clear Cardiovascular: normal peripheral pulses Abdomen: normal bowel sounds Microbiology Date/Time Source Procedure Growth Status 12/06/19 17:42 Nasal Nares MRSA Culture - Final NO METHICILLIN RESISTANT STAPH AUREUS... Complete 12/06/19 17:42 Rectum VRE Culture - Final NO VANCOMYCIN RESISTANT ENTEROCOCCUS ... Complete 12/06/19 17:42 Rectum - Final NO CARBAPENEM-RESISTANT ENTEROBACTERI... Complete Laboratory Tests 12/08/19 20:38: Vancomycin Level Trough 9.9 12/09/19 04:45: White Blood Count 5.8, Red Blood Count 4.23L, Hemoglobin 12.1L, Hematocrit 35.9L , Mean Corpuscular Volume 85, Mean Corpuscular Hemoglobin 28.7, Mean Corpuscular Hemoglobin Concent 33.9, Red Cell Distribution Width 10.8L, Platelet Count 120L, Mean Platelet Volume 7.5, Neutrophils (%) (Auto) 76.5H, Lymphocytes (%) (Auto) 15.7L, Monocytes (%) (Auto) 7.4, Eosinophils (%) (Auto) 0.1, Basophils (%) (Auto) 0.4, Sodium Level 136, Potassium Level 4.0, Chloride Level 100, Carbon Dioxide Level 29, Anion Gap 7, Blood Urea Nitrogen 19H, Creatinine 1.0, Estimat Glomerular Filtration Rate > 60, Glucose Level 164H, Calcium Level 8.6 Current Medications Medications (Trade) Dose Ordered Sig/Wiley Route PRN Reason Start Time Stop Time Status Last Admin Dose Admin Acetaminophen (Tylenol) 650 mg Q6H PRN ORAL Temp >100.5 12/08/19 08:45 01/07/20 08:44 12/09/19 05:27 Cefepime HCl 1 gm/ Dextrose 55 ml @ 110 mls/hr Q12H IVPB 12/07/19 20:00 12/14/19 19:59 12/09/19 08:40 Chlorhexidine Gluconate (Milagro-Hex 2%) 1 applic DAILY@2000 TOPIC 12/07/19 20:00 03/06/20 19:59 12/08/19 20:26 Gabapentin (Neurontin) 300 mg Q8HR ORAL 12/07/19 00:00 01/06/20 00:00 12/09/19 05:25 Levetiracetam (Keppra) 1,000 mg Q12HR ORAL 12/07/19 00:00 01/06/20 00:00 12/09/19 08:40 Lorazepam (Ativan 2mg/ml 1ml) 1 mg EVERY 6 HOURS PRN IV For Anxiety 12/07/19 16:00 12/14/19 15:59 Memantine (Namenda) 5 mg DAILY ORAL 12/07/19 17:00 01/06/20 16:59 12/09/19 08:40 Norepinephrine Bitartrate 4 mg/ Dextrose 250 ml @ 0 mls/hr Q24H PRN IV For hypotension 12/06/19 23:00 01/05/20 22:59 12/07/19 10:25 Sodium Chloride 1,000 ml @ 75 mls/hr [id number] IV 12/06/19 23:00 01/05/20 22:59 12/09/19 05:25 Vancomycin HCl (Vanco rx to dose) 1 ea DAILY PRN MISC Per rx protocol 12/06/19 15:00 01/05/20 14:59 Vancomycin HCl 1 gm/Dextrose 275 ml @ 183.333 mls/hr Q12H IVPB 12/08/19 23:00 12/13/19 22:59 12/09/19 10:35 Mike Montalvo MD Dec 09, 2019 11:23
--- NOTE | 2019-12-09 11:59 | NUR ---
Social Work Patient is a positive COVID-19 patient, currently isolated in the ICU. Patient is A/O x2/3 and requires assistance with all ADLS, came from [facility]. This SW spoke with Domitila, Medical Records at [facility], who explains patient is his own decision maker, does not have an Advance Directive, family, friend or POA. Bioethics to be consulted, as needed.
--- NOTE | 2019-12-09 12:07 | Infectious Diseases Prog Note ---
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 Will continue to follow along with you. Discussed with RN, Subjective Allergies: Coded Allergies: No Known Allergies (Unverified , 07/28/14) Subjective Tm 100.5 at 1L NC Levo at 1 Bcx NTD covid positive Objective Vital Signs Last 24 Hour Vital Signs Date Time Temp Pulse Resp B/P (MAP) Pulse Ox O2 Delivery O2 Flow Rate FiO2 12/09/19 10:30 71 28 107/75 (86) 97 12/09/19 10:00 74 28 110/72 (85) 97 12/09/19 09:30 71 26 111/68 (82) 97 12/09/19 09:00 75 24 120/74 (89) 98 12/09/19 08:30 72 26 93/63 (73) 97 12/09/19 08:00 Nasal Cannula 1.0 12/09/19 08:00 98.1 71 21 117/72 (87) 97 12/09/19 08:00 117/72 12/09/19 08:00 73 12/09/19 07:30 98.1 76 27 116/70 (85) 97 12/09/19 07:00 115/74 12/09/19 07:00 70 28 115/74 (88) 97 12/09/19 06:00 100.5 73 32 113/71 (85) 97 12/09/19 06:00 123/71 12/09/19 05:57 99.6 12/09/19 05:30 69 32 123/71 (88) 97 12/09/19 05:00 115/67 12/09/19 05:00 85 29 110/98 (102) 94 12/09/19 04:30 69 28 115/67 (83) 98 12/09/19 04:00 100.0 67 29 119/66 (83) 96 12/09/19 04:00 115/67 12/09/19 04:00 Nasal Cannula 1.0 12/09/19 04:00 67 12/09/19 03:30 63 28 109/70 (83) 97 12/09/19 03:00 65 28 108/74 (85) 97 12/09/19 03:00 109/70 12/09/19 02:30 68 29 114/74 (87) 98 12/09/19 02:00 99.5 63 23 117/68 (84) 99 12/09/19 02:00 114/74 12/09/19 01:30 65 24 121/72 (88) 98 12/09/19 01:00 121/72 12/09/19 01:00 67 27 117/74 (88) 96 12/09/19 00:30 64 25 116/72 (87) 98 12/09/19 00:00 99.0 64 24 117/70 (86) 97 12/09/19 00:00 68 12/09/19 00:00 Nasal Cannula 1.0 12/09/19 00:00 116/72 12/08/19 23:30 68 24 119/71 (87) 98 12/08/19 23:00 70 21 120/74 (89) 98 12/08/19 23:00 119/71 12/08/19 22:30 69 29 119/74 (89) 98 12/08/19 22:00 70 30 125/76 (92) 98 12/08/19 22:00 125/76 12/08/19 21:30 72 28 119/73 (88) 97 12/08/19 21:00 70 30 122/75 (91) 97 12/08/19 21:00 119/73 12/08/19 20:30 71 33 123/71 (88) 96 12/08/19 20:00 Nasal Cannula 1.0 12/08/19 20:00 123/71 12/08/19 20:00 65 12/08/19 20:00 99.9 73 32 122/73 (89) 97 12/08/19 19:30 69 30 122/78 (93) 97 12/08/19 19:00 67 28 123/74 (90) 97 12/08/19 19:00 122/78 12/08/19 18:00 66 26 121/74 (90) 96 12/08/19 18:00 121/74 12/08/19 17:30 68 25 123/73 (90) 98 12/08/19 17:00 72 32 127/71 (89) 98 12/08/19 17:00 127/71 12/08/19 16:30 72 27 114/77 (89) 98 12/08/19 16:00 71 27 129/76 (93) 98 12/08/19 16:00 70 12/08/19 16:00 Nasal Cannula 1.0 12/08/19 16:00 129/76 12/08/19 15:30 100.0 66 26 121/68 (85) 98 12/08/19 15:00 71 30 120/71 (87) 97 12/08/19 15:00 120/71 12/08/19 14:30 70 28 129/73 (91) 98 12/08/19 14:00 64 25 115/72 (86) 98 12/08/19 14:00 115/72 12/08/19 13:30 70 26 127/74 (91) 98 12/08/19 13:00 67 21 120/73 (89) 100 12/08/19 13:00 120/73 12/08/19 12:30 66 25 117/62 (80) 98 12/08/19 12:00 69 12/08/19 12:00 103/64 12/08/19 12:00 Nasal Cannula 1.0 12/08/19 12:00 99.9 66 23 103/64 (77) 99 Height (Feet): 5 Height (Inches): 8.00 Weight (Pounds): 185 Objective not examined to limit COVID19 exposure Microbiology Date/Time Source Procedure Growth Status 12/06/19 17:42 Nasal Nares MRSA Culture - Final NO METHICILLIN RESISTANT STAPH AUREUS... Complete 12/06/19 17:42 Rectum VRE Culture - Final NO VANCOMYCIN RESISTANT ENTEROCOCCUS ... Complete 12/06/19 17:42 Rectum - Final NO CARBAPENEM-RESISTANT ENTEROBACTERI... Complete Laboratory Tests Test 12/08/19 20:38 12/09/19 04:45 Vancomycin Level Trough 9.9 ug/mL (5.0-12.0) White Blood Count 5.8 K/UL (4.8-10.8) Red Blood Count 4.23 M/UL (4.70-6.10) L Hemoglobin 12.1 G/DL (14.2-18.0) L Hematocrit 35.9 % (42.0-52.0) L Mean Corpuscular Volume 85 FL (80-99) Mean Corpuscular Hemoglobin 28.7 PG (27.0-31.0) Mean Corpuscular Hemoglobin Concent 33.9 G/DL (32.0-36.0) Red Cell Distribution Width 10.8 % (11.6-14.8) L Platelet Count 120 K/UL (150-450) L Mean Platelet Volume 7.5 FL (6.5-10.1) Neutrophils (%) (Auto) 76.5 % (45.0-75.0) H Lymphocytes (%) (Auto) 15.7 % (20.0-45.0) L Monocytes (%) (Auto) 7.4 % (1.0-10.0) Eosinophils (%) (Auto) 0.1 % (0.0-3.0) Basophils (%) (Auto) 0.4 % (0.0-2.0) Sodium Level 136 MMOL/L (136-145) Potassium Level 4.0 MMOL/L (3.5-5.1) Chloride Level 100 MMOL/L (98-107) Carbon Dioxide Level 29 MMOL/L (21-32) Anion Gap 7 mmol/L (5-15) Blood Urea Nitrogen 19 mg/dL (7-18) H Creatinine 1.0 MG/DL (0.55-1.30) Estimat Glomerular Filtration Rate > 60 mL/min (>60) Glucose Level 164 MG/DL (74-106) H Calcium Level 8.6 MG/DL (8.5-10.1) Current Medications Medications (Trade) Dose Ordered Sig/Wiley Route PRN Reason Start Time Stop Time Status Last Admin Dose Admin Acetaminophen (Tylenol) 650 mg Q6H PRN ORAL Temp >100.5 12/08/19 08:45 01/07/20 08:44 12/09/19 05:27 Cefepime HCl 1 gm/ Dextrose 55 ml @ 110 mls/hr Q12H IVPB 12/07/19 20:00 12/14/19 19:59 12/09/19 08:40 Chlorhexidine Gluconate (Milagro-Hex 2%) 1 applic DAILY@2000 TOPIC 12/07/19 20:00 03/06/20 19:59 12/08/19 20:26 Gabapentin (Neurontin) 300 mg Q8HR ORAL 12/07/19 00:00 01/06/20 00:00 12/09/19 05:25 Levetiracetam (Keppra) 1,000 mg Q12HR ORAL 12/07/19 00:00 01/06/20 00:00 12/09/19 08:40 Lorazepam (Ativan 2mg/ml 1ml) 1 mg EVERY 6 HOURS PRN IV For Anxiety 12/07/19 16:00 12/14/19 15:59 Memantine (Namenda) 5 mg DAILY ORAL 12/07/19 17:00 01/06/20 16:59 12/09/19 08:40 Norepinephrine Bitartrate 4 mg/ Dextrose 250 ml @ 0 mls/hr Q24H PRN IV For hypotension 12/06/19 23:00 01/05/20 22:59 12/07/19 10:25 Sodium Chloride 1,000 ml @ 75 mls/hr [id number] IV 12/06/19 23:00 01/05/20 22:59 12/09/19 05:25 Vancomycin HCl (Vanco rx to dose) 1 ea DAILY PRN MISC Per rx protocol 12/06/19 15:00 01/05/20 14:59 Vancomycin HCl 1 gm/Dextrose 275 ml @ 183.333 mls/hr Q12H IVPB 12/08/19 23:00 12/13/19 22:59 12/09/19 10:35 Sujatha Sanchez M.D. Dec 09, 2019 12:07
--- NOTE | 2019-12-09 13:29 | NUR ---
CASE MANAGEMENT: REVIEW 69 YEAR OLD MALE BIBA FROM [facility] CC: HYPOTENSION SI: SEPSIS . COVID-19 T 97.2 HR 78 RR 16 BP 80/56 SAT 94% NC/2L BUN 71 CR 2.4 BNP 736 CXR -- LEFT BASILAR ATELECTASIS AND/OR INFILTRATE IS: VANCO IV X1 CEFEPIME IV X1 LEVOPHED 8MCG IV X1 PATIENT ADMITTED TO ICU 12/06/2019 DCP: PATIENT IS FROM [facility]
--- NOTE | 2019-12-09 13:57 | Cardiac Electrophysiology PN ---
Assessment/Plan Assessment/Plan 1. Shock could be due to cardiomyopathy and sepsis. His BNP is 736. On Cefepime and Vanco by Dr. Sanchez The patient is already on Levophed. Echocardiogram still pending due to Covid. Levophed only 1 mcg 2. History of cardiomyopathy. Because of hypotension off Coreg, hydralazine, lisinopril, and Aldactone 3. Status post right-sided MERT ICD. 4. History of hypertension, currently hypotensive. 5. History of CVA with residual weakness. 6. COVID-19 PNA off the vent DW RN Subjective Subjective On 1 mcg of Levophed in ICU still on 1 liter NC. Covid is now positive Objective Last 24 Hour Vital Signs Date Time Temp Pulse Resp B/P (MAP) Pulse Ox O2 Delivery O2 Flow Rate FiO2 12/09/19 13:30 77 28 121/77 (92) 97 12/09/19 13:00 99.4 72 28 130/73 (92) 98 12/09/19 12:30 74 28 113/71 (85) 97 12/09/19 12:00 98.6 73 27 117/71 (86) 97 12/09/19 12:00 117/71 12/09/19 12:00 Nasal Cannula 1.0 12/09/19 11:30 69 28 119/71 (87) 98 12/09/19 11:00 69 27 117/70 (86) 97 12/09/19 11:00 117/70 12/09/19 10:30 71 28 107/75 (86) 97 12/09/19 10:00 110/72 12/09/19 10:00 74 28 110/72 (85) 97 12/09/19 09:30 71 26 111/68 (82) 97 12/09/19 09:00 75 24 120/74 (89) 98 12/09/19 09:00 120/74 12/09/19 08:30 72 26 93/63 (73) 97 12/09/19 08:00 Nasal Cannula 1.0 12/09/19 08:00 98.1 71 21 117/72 (87) 97 12/09/19 08:00 117/72 12/09/19 08:00 73 12/09/19 07:30 98.1 76 27 116/70 (85) 97 12/09/19 07:00 115/74 4/27/20 07:00 70 28 115/74 (88) 97 12/09/19 06:00 100.5 73 32 113/71 (85) 97 12/09/19 06:00 123/71 12/09/19 05:57 99.6 12/09/19 05:30 69 32 123/71 (88) 97 12/09/19 05:00 115/67 12/09/19 05:00 85 29 110/98 (102) 94 12/09/19 04:30 69 28 115/67 (83) 98 12/09/19 04:00 100.0 67 29 119/66 (83) 96 12/09/19 04:00 115/67 12/09/19 04:00 Nasal Cannula 1.0 12/09/19 04:00 67 12/09/19 03:30 63 28 109/70 (83) 97 12/09/19 03:00 65 28 108/74 (85) 97 12/09/19 03:00 109/70 12/09/19 02:30 68 29 114/74 (87) 98 12/09/19 02:00 99.5 63 23 117/68 (84) 99 12/09/19 02:00 114/74 12/09/19 01:30 65 24 121/72 (88) 98 12/09/19 01:00 121/72 12/09/19 01:00 67 27 117/74 (88) 96 12/09/19 00:30 64 25 116/72 (87) 98 12/09/19 00:00 99.0 64 24 117/70 (86) 97 12/09/19 00:00 68 12/09/19 00:00 Nasal Cannula 1.0 12/09/19 00:00 116/72 12/08/19 23:30 68 24 119/71 (87) 98 12/08/19 23:00 70 21 120/74 (89) 98 12/08/19 23:00 119/71 12/08/19 22:30 69 29 119/74 (89) 98 12/08/19 22:00 70 30 125/76 (92) 98 12/08/19 22:00 125/76 12/08/19 21:30 72 28 119/73 (88) 97 12/08/19 21:00 70 30 122/75 (91) 97 12/08/19 21:00 119/73 12/08/19 20:30 71 33 123/71 (88) 96 12/08/19 20:00 Nasal Cannula 1.0 12/08/19 20:00 123/71 12/08/19 20:00 65 12/08/19 20:00 99.9 73 32 122/73 (89) 97 12/08/19 19:30 69 30 122/78 (93) 97 12/08/19 19:00 67 28 123/74 (90) 97 12/08/19 19:00 122/78 12/08/19 18:00 66 26 121/74 (90) 96 12/08/19 18:00 121/74 12/08/19 17:30 68 25 123/73 (90) 98 12/08/19 17:00 72 32 127/71 (89) 98 12/08/19 17:00 127/71 12/08/19 16:30 72 27 114/77 (89) 98 12/08/19 16:00 71 27 129/76 (93) 98 12/08/19 16:00 70 12/08/19 16:00 Nasal Cannula 1.0 12/08/19 16:00 129/76 12/08/19 15:30 100.0 66 26 121/68 (85) 98 12/08/19 15:00 71 30 120/71 (87) 97 12/08/19 15:00 120/71 12/08/19 14:30 70 28 129/73 (91) 98 12/08/19 14:00 64 25 115/72 (86) 98 12/08/19 14:00 115/72 Intake and Output 12/08/19 12/09/19 19:00 07:00 Intake Total 1275.000 ml 925.00 ml Output Total 580 ml 520 ml Balance 695.000 ml 405.00 ml Intake Oral 150 ml IV Total 1275.000 ml 775.00 ml Output Urine Total 580 ml 520 ml # Bowel Movements 2 3 Laboratory Tests Test 12/08/19 20:38 12/09/19 04:45 Vancomycin Level Trough 9.9 ug/mL (5.0-12.0) White Blood Count 5.8 K/UL (4.8-10.8) Red Blood Count 4.23 M/UL (4.70-6.10) L Hemoglobin 12.1 G/DL (14.2-18.0) L Hematocrit 35.9 % (42.0-52.0) L Mean Corpuscular Volume 85 FL (80-99) Mean Corpuscular Hemoglobin 28.7 PG (27.0-31.0) Mean Corpuscular Hemoglobin Concent 33.9 G/DL (32.0-36.0) Red Cell Distribution Width 10.8 % (11.6-14.8) L Platelet Count 120 K/UL (150-450) L Mean Platelet Volume 7.5 FL (6.5-10.1) Neutrophils (%) (Auto) 76.5 % (45.0-75.0) H Lymphocytes (%) (Auto) 15.7 % (20.0-45.0) L Monocytes (%) (Auto) 7.4 % (1.0-10.0) Eosinophils (%) (Auto) 0.1 % (0.0-3.0) Basophils (%) (Auto) 0.4 % (0.0-2.0) Sodium Level 136 MMOL/L (136-145) Potassium Level 4.0 MMOL/L (3.5-5.1) Chloride Level 100 MMOL/L (98-107) Carbon Dioxide Level 29 MMOL/L (21-32) Anion Gap 7 mmol/L (5-15) Blood Urea Nitrogen 19 mg/dL (7-18) H Creatinine 1.0 MG/DL (0.55-1.30) Estimat Glomerular Filtration Rate > 60 mL/min (>60) Glucose Level 164 MG/DL (74-106) H Calcium Level 8.6 MG/DL (8.5-10.1) Microbiology Date/Time Source Procedure Growth Status 12/06/19 17:42 Nasal Nares MRSA Culture - Final NO METHICILLIN RESISTANT STAPH AUREUS... Complete 12/06/19 17:42 Rectum VRE Culture - Final NO VANCOMYCIN RESISTANT ENTEROCOCCUS ... Complete 12/06/19 17:42 Rectum - Final NO CARBAPENEM-RESISTANT ENTEROBACTERI... Complete Objective HEAD AND NECK: Positive JVD. LUNGS: Decreased breath sounds. CARDIOVASCULAR: Regular S1 and S2 with no gallop. ABDOMEN: Soft. EXTREMITIES: 1+ pitting edema. Defibrillator is in right subclavian. Shai Bullard MD Dec 09, 2019 13:57
--- NOTE | 2019-12-09 14:08 | NUR ---
NURSE NOTES: notified Dr. Magana regarding patient's levophed is on hold due to SBP 130 at 1300. notified CN. Will continue to monitor.
--- NOTE | 2019-12-09 16:00 | NUR ---
NURSE NOTES: patient's BP is maintaining in stable range without levophed at this time. Charge nurse notified. Dr. Magana made aware.
--- NOTE | 2019-12-09 19:07 | NUR ---
HAND-OFF: Report given to Tatum JIMENEZ. endorsed all plan of care to Tatum JIMENEZ.
--- NOTE | 2019-12-09 19:17 | NUR ---
NURSE NOTES: received report from giuliana nixon pt awake and alert follows command vs stable off levo drip reposition and suction no resp distress noted
--- NOTE | 2019-12-09 20:15 | Progress Note ---
DATE: 12/09/2019 SUBJECTIVE: This is a 69-year-old male patient with altered mental status, hypertension, sepsis. He has confusion, disorganized thought process. He has got no logical plan for his own self-care, and got feelings of helplessness, hopelessness, low energy, poor appetite, and loss of interest in activity. The patient is in the ICU right now. He has some confusion, disorganized thought process, and some decline in cognition below his baseline. That is why, he does require acute inpatient treatment at this time. MENTAL STATUS EXAMINATION: This is a 69-year-old male patient. Appearance is disheveled. Attitude, irritable and agitated. Affect, guarded and restricted. Intellect, poor. Mood, depressed and anxious. Motor activity, psychomotor agitation. Insight and judgment is poor. DIAGNOSIS: Major depressive disorder, mild, recurrent with psychotic features. PLAN: Treat this patient with a medication regimen 1 mg IV every 6 hours p.r.n. anxiety and agitation, Namenda 5 mg daily, Neurontin 300 mg p.o. every 8 hours. Twenty minutes of behavioral management. Chart reviewed. Discussed with staff. The patient is seen and assessed at bedside in the ICU unit. Poor cognition, so he has better recognition and impulse control in the ICU unit. Chart reviewed. Discussed with staff. Twenty minutes of insight-oriented psychotherapy provided. iMrna Adkins M.D. DR: MACK JOB#: [id number] CC:
[2019-12-09] MEDS: Dyna-Hex 2% Top Sol 2oz TOPIC SCH (20:30)
[2019-12-10] VITALS (24 sets, daily range): BP systolic 113–132; BP diastolic 62–85
--- NOTE | 2019-12-10 04:00 | NUR ---
NURSE NOTES: complete bed bath done
--- NOTE | 2019-12-10 06:00 | NUR ---
NURSE NOTES: asleep no distress noted
[2019-12-10 06:05] LABS: BASOPHILS % (AUTO) 0.4 % (0.0-2.0); EOSINOPHILS % (AUTO) 0.4 % (0.0-3.0); HEMATOCRIT 36.1 % (42.0-52.0); HEMOGLOBIN 12.5 G/DL (14.2-18.0); LYMPHOCYTES % (AUTO) 12.2 % (20.0-45.0); MEAN CORPUSCULAR VOLUME 84 FL (80-99); MONOCYTES % (AUTO) 7.5 % (1.0-10.0); NEUTROPHILS % (AUTO) 79.6 % (45.0-75.0); PLATELET COUNT 122 K/UL (150-450); RED BLOOD COUNT 4.31 M/UL (4.70-6.10); RED CELL DISTRIBUTION WIDTH 10.6 % (11.6-14.8); WHITE BLOOD COUNT 5.5 K/UL (4.8-10.8)
[2019-12-10 06:47] LABS: ANION GAP 8 mmol/L (5-15); BLOOD UREA NITROGEN 17 mg/dL (7-18); CARBON DIOXIDE 28 MMOL/L (21-32); CHLORIDE 101 MMOL/L (98-107); CREATININE 0.8 MG/DL (0.55-1.30); POTASSIUM 3.8 MMOL/L (3.5-5.1); SODIUM 137 MMOL/L (136-145)
--- NOTE | 2019-12-10 07:23 | NUR ---
HAND-OFF: Report given to minna rn using sbar .
--- NOTE | 2019-12-10 07:24 | NUR ---
NURSE NOTES: Received patient from [place] JIMENEZ. Patient is awake, alert and oriented x3. Sinus Rhythm on the heart monitor, HR 95. Receiving oxygen via Nasal cannula at 2L/min, O2 saturation at 96%. IV site is Left hand 20g patent and intact, Right Femoral TLC is intact and receiving NS at 75cc/hr. Mosqueda catheter is intact and draining. Bed is locked, placed in lowest position, side rails up x3, bed alarm on, call light within reach. Will continue to monitor.
[2019-12-10] MEDS: Memantine 5 MG TAB ORAL SCH (08:08)
[2019-12-10] MEDS: Cefepime HCl 1 GM in D5W 55 ML IVPB SCH ×2 (08:09→20:37)
--- NOTE | 2019-12-10 08:30 | NUR ---
NURSE NOTES: Gave patient medications as prescribed, no adverse reaction noted. Patient refusing to eat breakfast this morning, denies any pain. Turned and repositioned patient. Patient's oral temperature read 101.9 degrees Fahrenheit, prescribed Tylenol given, removed blankets from patient. Will continue to monitor.
--- NOTE | 2019-12-10 09:13 | Diagnostic Imaging Report ---
Indication: Shortness of breath Technique: One view of the chest Comparison: 12/06/2019 Findings: Interval development of bilateral mid and lower lung interstitial disease. The heart is borderline enlarged. There may be some pleural fluid on the left. Right chest AICD again noted. 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 Possible developing left pleural effusion
--- NOTE | 2019-12-10 09:14 | NUR ---
NURSE NOTES: On reassessment of patient's temperature it read 100.0 degrees Fahrenheit orally. Encouraged patient to drink more ice water, patient complied. Will continue to monitor.
[2019-12-10 09:19] LABS: FERRITIN > 2000 NG/ML (8-388)
--- NOTE | 2019-12-10 09:27 | NUR ---
RADIOLOGY DEPT., CHEST X-RAY DONE.-P.DYE
--- NOTE | 2019-12-10 10:52 | NUR ---
NURSE NOTES: Patient seen and assessed by Dr. Edouard.
--- NOTE | 2019-12-10 11:02 | Infectious Diseases Prog Note ---
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 Will continue to follow along with you. Discussed with RN, Subjective Allergies: Coded Allergies: No Known Allergies (Unverified , 07/28/14) Subjective Tm 101.9 at 1L NC off levo no leukocytosis Bcx NTD Objective Vital Signs Last 24 Hour Vital Signs Date Time Temp Pulse Resp B/P (MAP) Pulse Ox O2 Delivery O2 Flow Rate FiO2 12/10/19 10:00 83 29 126/76 (93) 94 12/10/19 09:00 100.0 87 33 116/79 (91) 94 12/10/19 08:46 100.0 12/10/19 08:00 101.9 79 32 127/70 (89) 93 12/10/19 08:00 Nasal Cannula 1.0 12/10/19 07:27 75 12/10/19 07:00 72 30 132/76 (94) 95 12/10/19 06:00 81 32 130/73 (92) 89 12/10/19 05:00 72 29 127/73 (91) 95 12/10/19 04:00 77 30 125/81 (96) 95 12/10/19 04:00 72 12/10/19 04:00 Nasal Cannula 1.0 12/10/19 03:00 74 35 120/74 (89) 94 12/10/19 02:00 74 33 128/73 (91) 94 12/10/19 01:00 73 32 125/68 (87) 95 12/10/19 00:00 Nasal Cannula 1.0 12/10/19 00:00 74 31 121/70 (87) 95 12/10/19 00:00 72 12/09/19 23:00 78 32 121/73 (89) 97 12/09/19 22:00 99.0 78 27 122/71 (88) 95 12/09/19 21:00 73 12/09/19 21:00 81 31 116/72 (87) 94 12/09/19 20:00 Nasal Cannula 1.0 12/09/19 20:00 74 28 128/70 (89) 95 12/09/19 19:00 78 31 120/70 (87) 95 12/09/19 18:30 77 31 117/79 (92) 95 12/09/19 18:00 88 25 125/72 (89) 95 12/09/19 17:30 99.2 79 29 128/73 (91) 96 12/09/19 17:00 77 31 117/78 (91) 97 12/09/19 16:00 78 30 116/69 (85) 95 12/09/19 16:00 77 12/09/19 16:00 Nasal Cannula 1.0 12/09/19 15:30 73 29 113/75 (88) 95 12/09/19 15:00 80 32 121/77 (92) 96 12/09/19 14:30 79 33 117/79 (92) 95 12/09/19 14:00 79 28 114/70 (85) 95 12/09/19 13:30 77 28 121/77 (92) 97 12/09/19 13:00 99.4 72 28 130/73 (92) 98 12/09/19 13:00 130/73 12/09/19 12:30 74 28 113/71 (85) 97 12/09/19 12:00 71 12/09/19 12:00 98.6 73 27 117/71 (86) 97 12/09/19 12:00 117/71 12/09/19 12:00 Nasal Cannula 1.0 12/09/19 11:30 69 28 119/71 (87) 98 12/09/19 11:00 69 27 117/70 (86) 97 12/09/19 11:00 117/70 Height (Feet): 5 Height (Inches): 8.00 Weight (Pounds): 180 Objective not examined to limit COVID19 exposure Laboratory Tests Test 12/10/19 05:29 White Blood Count 5.5 K/UL (4.8-10.8) Red Blood Count 4.31 M/UL (4.70-6.10) L Hemoglobin 12.5 G/DL (14.2-18.0) L Hematocrit 36.1 % (42.0-52.0) L Mean Corpuscular Volume 84 FL (80-99) Mean Corpuscular Hemoglobin 29.1 PG (27.0-31.0) Mean Corpuscular Hemoglobin Concent 34.7 G/DL (32.0-36.0) Red Cell Distribution Width 10.6 % (11.6-14.8) L Platelet Count 122 K/UL (150-450) L Mean Platelet Volume 7.6 FL (6.5-10.1) Neutrophils (%) (Auto) 79.6 % (45.0-75.0) H Lymphocytes (%) (Auto) 12.2 % (20.0-45.0) L Monocytes (%) (Auto) 7.5 % (1.0-10.0) Eosinophils (%) (Auto) 0.4 % (0.0-3.0) Basophils (%) (Auto) 0.4 % (0.0-2.0) Fibrinogen 559 mg/dL (200-400) H D-Dimer 12.03 mg/L FEU (0.00-0.49) H Sodium Level 137 MMOL/L (136-145) Potassium Level 3.8 MMOL/L (3.5-5.1) Chloride Level 101 MMOL/L (98-107) Carbon Dioxide Level 28 MMOL/L (21-32) Anion Gap 8 mmol/L (5-15) Blood Urea Nitrogen 17 mg/dL (7-18) Creatinine 0.8 MG/DL (0.55-1.30) Estimat Glomerular Filtration Rate > 60 mL/min (>60) Glucose Level 153 MG/DL (74-106) H Lactic Acid Level 1.00 mmol/L (0.4-2.0) Calcium Level 8.0 MG/DL (8.5-10.1) L Ferritin > 2000 NG/ML (8-388) H C-Reactive Protein, Quantitative 22.3 mg/dL (0.00-0.90) H Current Medications Medications (Trade) Dose Ordered Sig/Wiley Route PRN Reason Start Time Stop Time Status Last Admin Dose Admin Acetaminophen (Tylenol) 650 mg Q6H PRN ORAL Temp >100.5 12/08/19 08:45 01/07/20 08:44 12/10/19 08:16 Cefepime HCl 1 gm/ Dextrose 55 ml @ 110 mls/hr Q12H IVPB 12/07/19 20:00 12/14/19 19:59 12/10/19 08:09 Chlorhexidine Gluconate (Milagro-Hex 2%) 1 applic DAILY@2000 TOPIC 12/07/19 20:00 03/06/20 19:59 12/09/19 20:30 Gabapentin (Neurontin) 300 mg Q8HR ORAL 12/07/19 00:00 01/06/20 00:00 12/10/19 06:08 Levetiracetam (Keppra) 1,000 mg Q12HR ORAL 12/07/19 00:00 01/06/20 00:00 12/10/19 08:08 Lorazepam (Ativan 2mg/ml 1ml) 1 mg EVERY 6 HOURS PRN IV For Anxiety 12/07/19 16:00 12/14/19 15:59 Memantine (Namenda) 5 mg DAILY ORAL 12/07/19 17:00 01/06/20 16:59 12/10/19 08:08 Norepinephrine Bitartrate 4 mg/ Dextrose 250 ml @ 0 mls/hr Q24H PRN IV For hypotension 12/06/19 23:00 01/05/20 22:59 12/07/19 10:25 Sodium Chloride 1,000 ml @ 75 mls/hr [id number] IV 12/06/19 23:00 01/05/20 22:59 12/10/19 06:30 Sujatha Sanchez M.D. Dec 10, 2019 11:02
--- NOTE | 2019-12-10 11:47 | NUR ---
CASE MANAGEMENT: REVIEW SI: SEPSIS . COVID-19 T 101.9 HR 75 RR 32 BP 127/70 SAT 93% NC/1L H/H 12.5/36.1 GLUCOSE 153 FERRITIN >2000 IS: NS IVF @ 75ML/HR CEFEPIME IV Q12HR KEPPRA PO Q12HR GABAPENTIN PO Q8HR CLEAR LIQUID DIET ICU STATUS DCP: PATIENT IS FROM [facility]
--- NOTE | 2019-12-10 11:48 | Pulmonology Progress Note ---
Assessment/Plan Assessment/Plan IMPRESSION: 1. Cardiomyopathy. 2. Hypotension. 3. Left lung pneumonia. 4. [facility]. 5. Positive COVID-19. DISCUSSION: 1. Continue isolation 2. Continue current medications. 3. Continue pressors. 4. Oxygen. 5. Pulmonary hygiene. 6. Broad-spectrum antibiotics. 7. I will follow. Mike Montalvo M.D. Subjective Interval Events: Looking better; on low dose levophed; febrile Constitutional: Reports: no symptoms Respiratory: Reports: no symptoms Cardiovascular: Reports: no symptoms Gastrointestinal/Abdominal: Reports: no symptoms Genitourinary: Reports: no symptoms Neurologic: Reports: no symptoms Allergies: Coded Allergies: No Known Allergies (Unverified , 07/28/14) All Systems: reviewed and negative except above Objective Last 24 Hour Vital Signs Date Time Temp Pulse Resp B/P (MAP) Pulse Ox O2 Delivery O2 Flow Rate FiO2 12/10/19 11:00 83 29 114/82 (93) 94 12/10/19 10:00 83 29 126/76 (93) 94 12/10/19 09:00 100.0 87 33 116/79 (91) 94 12/10/19 08:46 100.0 12/10/19 08:00 101.9 79 32 127/70 (89) 93 12/10/19 08:00 Nasal Cannula 1.0 12/10/19 07:27 75 12/10/19 07:00 72 30 132/76 (94) 95 12/10/19 06:00 81 32 130/73 (92) 89 12/10/19 05:00 72 29 127/73 (91) 95 12/10/19 04:00 77 30 125/81 (96) 95 12/10/19 04:00 72 12/10/19 04:00 Nasal Cannula 1.0 12/10/19 03:00 74 35 120/74 (89) 94 12/10/19 02:00 74 33 128/73 (91) 94 12/10/19 01:00 73 32 125/68 (87) 95 12/10/19 00:00 Nasal Cannula 1.0 12/10/19 00:00 74 31 121/70 (87) 95 12/10/19 00:00 72 12/09/19 23:00 78 32 121/73 (89) 97 12/09/19 22:00 99.0 78 27 122/71 (88) 95 12/09/19 21:00 73 12/09/19 21:00 81 31 116/72 (87) 94 12/09/19 20:00 Nasal Cannula 1.0 12/09/19 20:00 74 28 128/70 (89) 95 12/09/19 19:00 78 31 120/70 (87) 95 12/09/19 18:30 77 31 117/79 (92) 95 12/09/19 18:00 88 25 125/72 (89) 95 12/09/19 17:30 99.2 79 29 128/73 (91) 96 12/09/19 17:00 77 31 117/78 (91) 97 12/09/19 16:00 78 30 116/69 (85) 95 12/09/19 16:00 77 12/09/19 16:00 Nasal Cannula 1.0 12/09/19 15:30 73 29 113/75 (88) 95 12/09/19 15:00 80 32 121/77 (92) 96 12/09/19 14:30 79 33 117/79 (92) 95 12/09/19 14:00 79 28 114/70 (85) 95 12/09/19 13:30 77 28 121/77 (92) 97 12/09/19 13:00 99.4 72 28 130/73 (92) 98 12/09/19 13:00 130/73 12/09/19 12:30 74 28 113/71 (85) 97 12/09/19 12:00 71 12/09/19 12:00 98.6 73 27 117/71 (86) 97 12/09/19 12:00 117/71 12/09/19 12:00 Nasal Cannula 1.0 Intake and Output 12/09/19 12/10/19 19:00 07:00 Intake Total 743.750 ml 1090.5 ml Output Total 470 ml 550 ml Balance 273.750 ml 540.5 ml Intake Oral 320 ml 100 ml IV Total 423.750 ml 990.5 ml Output Urine Total 470 ml 550 ml # Bowel Movements 1 General Appearance: no acute distress HEENT: normocephalic Respiratory/Chest: chest wall non-tender, lungs clear Cardiovascular: normal peripheral pulses Abdomen: normal bowel sounds Laboratory Tests 12/10/19 05:29: White Blood Count 5.5, Red Blood Count 4.31L, Hemoglobin 12.5L, Hematocrit 36.1L , Mean Corpuscular Volume 84, Mean Corpuscular Hemoglobin 29.1, Mean Corpuscular Hemoglobin Concent 34.7, Red Cell Distribution Width 10.6L, Platelet Count 122L, Mean Platelet Volume 7.6, Neutrophils (%) (Auto) 79.6H, Lymphocytes (%) (Auto) 12.2L, Monocytes (%) (Auto) 7.5, Eosinophils (%) (Auto) 0.4, Basophils (%) (Auto) 0.4, Fibrinogen 559H, D-Dimer 12.03H, Sodium Level 137 , Potassium Level 3.8, Chloride Level 101, Carbon Dioxide Level 28, Anion Gap 8 , Blood Urea Nitrogen 17, Creatinine 0.8, Estimat Glomerular Filtration Rate > 60, Glucose Level 153H, Lactic Acid Level 1.00, Calcium Level 8.0L, Ferritin > 2000H, C-Reactive Protein, Quantitative 22.3H Current Medications Medications (Trade) Dose Ordered Sig/Wiley Route PRN Reason Start Time Stop Time Status Last Admin Dose Admin Acetaminophen (Tylenol) 650 mg Q6H PRN ORAL Temp >100.5 12/08/19 08:45 01/07/20 08:44 12/10/19 08:16 Cefepime HCl 1 gm/ Dextrose 55 ml @ 110 mls/hr Q12H IVPB 12/07/19 20:00 12/14/19 19:59 12/10/19 08:09 Chlorhexidine Gluconate (Milagro-Hex 2%) 1 applic DAILY@2000 TOPIC 12/07/19 20:00 03/06/20 19:59 12/09/19 20:30 Gabapentin (Neurontin) 300 mg Q8HR ORAL 12/07/19 00:00 01/06/20 00:00 12/10/19 06:08 Levetiracetam (Keppra) 1,000 mg Q12HR ORAL 12/07/19 00:00 01/06/20 00:00 12/10/19 08:08 Lorazepam (Ativan 2mg/ml 1ml) 1 mg EVERY 6 HOURS PRN IV For Anxiety 12/07/19 16:00 12/14/19 15:59 Memantine (Namenda) 5 mg DAILY ORAL 12/07/19 17:00 01/06/20 16:59 12/10/19 08:08 Norepinephrine Bitartrate 4 mg/ Dextrose 250 ml @ 0 mls/hr Q24H PRN IV For hypotension 12/06/19 23:00 01/05/20 22:59 12/07/19 10:25 Sodium Chloride 1,000 ml @ 75 mls/hr [id number] IV 12/06/19 23:00 01/05/20 22:59 12/10/19 06:30 Mike Montalvo MD Dec 10, 2019 11:48
--- NOTE | 2019-12-10 12:16 | Cardiac Electrophysiology PN ---
Assessment/Plan Assessment/Plan 1. S/P Shock could be due to cardiomyopathy and sepsis. His BNP is 736. On iv Abx by Dr. Sanchez Off Levophed since 12/09/19 2. History of cardiomyopathy. Because of hypotension off Coreg, hydralazine, lisinopril, and Aldactone Echocardiogram still pending due to Covid. 3. Status post right-sided MERT ICD. 4. History of hypertension, currently hypotensive. 5. History of CVA with residual weakness. 6. COVID-19 PNA off the vent DW RN Subjective Subjective Off Levophed since yesterday in ICU still on 2 liter NC. Covid is positive Objective Last 24 Hour Vital Signs Date Time Temp Pulse Resp B/P (MAP) Pulse Ox O2 Delivery O2 Flow Rate FiO2 12/10/19 12:00 Nasal Cannula 1.0 12/10/19 11:00 83 29 114/82 (93) 94 12/10/19 10:00 83 29 126/76 (93) 94 12/10/19 09:00 100.0 87 33 116/79 (91) 94 12/10/19 08:46 100.0 12/10/19 08:00 101.9 79 32 127/70 (89) 93 12/10/19 08:00 Nasal Cannula 1.0 12/10/19 07:27 75 12/10/19 07:00 72 30 132/76 (94) 95 12/10/19 06:00 81 32 130/73 (92) 89 12/10/19 05:00 72 29 127/73 (91) 95 12/10/19 04:00 77 30 125/81 (96) 95 12/10/19 04:00 72 12/10/19 04:00 Nasal Cannula 1.0 12/10/19 03:00 74 35 120/74 (89) 94 12/10/19 02:00 74 33 128/73 (91) 94 12/10/19 01:00 73 32 125/68 (87) 95 12/10/19 00:00 Nasal Cannula 1.0 12/10/19 00:00 74 31 121/70 (87) 95 12/10/19 00:00 72 12/09/19 23:00 78 32 121/73 (89) 97 12/09/19 22:00 99.0 78 27 122/71 (88) 95 12/09/19 21:00 73 12/09/19 21:00 81 31 116/72 (87) 94 12/09/19 20:00 Nasal Cannula 1.0 12/09/19 20:00 74 28 128/70 (89) 95 12/09/19 19:00 78 31 120/70 (87) 95 12/09/19 18:30 77 31 117/79 (92) 95 12/09/19 18:00 88 25 125/72 (89) 95 12/09/19 17:30 99.2 79 29 128/73 (91) 96 12/09/19 17:00 77 31 117/78 (91) 97 12/09/19 16:00 78 30 116/69 (85) 95 12/09/19 16:00 77 12/09/19 16:00 Nasal Cannula 1.0 12/09/19 15:30 73 29 113/75 (88) 95 12/09/19 15:00 80 32 121/77 (92) 96 12/09/19 14:30 79 33 117/79 (92) 95 12/09/19 14:00 79 28 114/70 (85) 95 12/09/19 13:30 77 28 121/77 (92) 97 12/09/19 13:00 99.4 72 28 130/73 (92) 98 12/09/19 13:00 130/73 12/09/19 12:30 74 28 113/71 (85) 97 Intake and Output 12/09/19 12/10/19 19:00 07:00 Intake Total 743.750 ml 1090.5 ml Output Total 470 ml 550 ml Balance 273.750 ml 540.5 ml Intake Oral 320 ml 100 ml IV Total 423.750 ml 990.5 ml Output Urine Total 470 ml 550 ml # Bowel Movements 1 Laboratory Tests Test 12/10/19 05:29 White Blood Count 5.5 K/UL (4.8-10.8) Red Blood Count 4.31 M/UL (4.70-6.10) L Hemoglobin 12.5 G/DL (14.2-18.0) L Hematocrit 36.1 % (42.0-52.0) L Mean Corpuscular Volume 84 FL (80-99) Mean Corpuscular Hemoglobin 29.1 PG (27.0-31.0) Mean Corpuscular Hemoglobin Concent 34.7 G/DL (32.0-36.0) Red Cell Distribution Width 10.6 % (11.6-14.8) L Platelet Count 122 K/UL (150-450) L Mean Platelet Volume 7.6 FL (6.5-10.1) Neutrophils (%) (Auto) 79.6 % (45.0-75.0) H Lymphocytes (%) (Auto) 12.2 % (20.0-45.0) L Monocytes (%) (Auto) 7.5 % (1.0-10.0) Eosinophils (%) (Auto) 0.4 % (0.0-3.0) Basophils (%) (Auto) 0.4 % (0.0-2.0) Fibrinogen 559 mg/dL (200-400) H D-Dimer 12.03 mg/L FEU (0.00-0.49) H Sodium Level 137 MMOL/L (136-145) Potassium Level 3.8 MMOL/L (3.5-5.1) Chloride Level 101 MMOL/L (98-107) Carbon Dioxide Level 28 MMOL/L (21-32) Anion Gap 8 mmol/L (5-15) Blood Urea Nitrogen 17 mg/dL (7-18) Creatinine 0.8 MG/DL (0.55-1.30) Estimat Glomerular Filtration Rate > 60 mL/min (>60) Glucose Level 153 MG/DL (74-106) H Lactic Acid Level 1.00 mmol/L (0.4-2.0) Calcium Level 8.0 MG/DL (8.5-10.1) L Ferritin > 2000 NG/ML (8-388) H C-Reactive Protein, Quantitative 22.3 mg/dL (0.00-0.90) H Objective HEAD AND NECK: Positive JVD. LUNGS: Decreased breath sounds. CARDIOVASCULAR: Regular S1 and S2 with no gallop. ABDOMEN: Soft. EXTREMITIES: 1+ pitting edema. Defibrillator is in right subclavian. Shai Bullard MD Dec 10, 2019 12:16
--- NOTE | 2019-12-10 12:29 | NUR ---
PT notes: patient still with other discipline; will follow up later if time permits.
--- NOTE | 2019-12-10 12:46 | General Progress Note ---
Assessment/Plan Problem List: (1) Suspected COVID-19 virus infection ICD Codes: Z20.828 - Contact with and (suspected) exposure to other viral communicable diseases SNOMED: 244724829 (2) Anemia ICD Codes: D64.9 - Anemia, unspecified SNOMED: 914446964 (3) Weak ICD Codes: R53.1 - Weakness SNOMED: 42224436 (4) COPD (chronic obstructive pulmonary disease) ICD Codes: J44.9 - Chronic obstructive pulmonary disease, unspecified SNOMED: 86143031 (5) Diabetes ICD Codes: E11.9 - Type 2 diabetes mellitus without complications SNOMED: 41037293 (6) Epileptic seizure, generalized ICD Codes: G40.309 - Generalized idiopathic epilepsy and epileptic syndromes, not intractable, without status epilepticus SNOMED: 88717081 (7) Altered mental status ICD Codes: R41.82 - Altered mental status, unspecified SNOMED: 065685055 Qualifiers: Qualified Codes: R41.82 - Altered mental status, unspecified (8) Hypotension ICD Codes: I95.9 - Hypotension, unspecified SNOMED: 65834703 Qualifiers: Qualified Codes: I95.9 - Hypotension, unspecified Status: unchanged Assessment/Plan: o2 pulm tx abx pt diet cbc bmp am Subjective Constitutional: Reports: weakness Allergies: Coded Allergies: No Known Allergies (Unverified , 07/28/14) All Systems: reviewed and negative except above Subjective o2nc calm in bed in icu Objective Last 24 Hour Vital Signs Date Time Temp Pulse Resp B/P (MAP) Pulse Ox O2 Delivery O2 Flow Rate FiO2 12/10/19 12:00 Nasal Cannula 1.0 12/10/19 11:00 83 29 114/82 (93) 94 12/10/19 10:00 83 29 126/76 (93) 94 12/10/19 09:00 100.0 87 33 116/79 (91) 94 12/10/19 08:46 100.0 12/10/19 08:00 101.9 79 32 127/70 (89) 93 12/10/19 08:00 Nasal Cannula 1.0 12/10/19 07:27 75 12/10/19 07:00 72 30 132/76 (94) 95 12/10/19 06:00 81 32 130/73 (92) 89 12/10/19 05:00 72 29 127/73 (91) 95 12/10/19 04:00 77 30 125/81 (96) 95 12/10/19 04:00 72 12/10/19 04:00 Nasal Cannula 1.0 12/10/19 03:00 74 35 120/74 (89) 94 12/10/19 02:00 74 33 128/73 (91) 94 12/10/19 01:00 73 32 125/68 (87) 95 12/10/19 00:00 Nasal Cannula 1.0 12/10/19 00:00 74 31 121/70 (87) 95 12/10/19 00:00 72 12/09/19 23:00 78 32 121/73 (89) 97 12/09/19 22:00 99.0 78 27 122/71 (88) 95 12/09/19 21:00 73 12/09/19 21:00 81 31 116/72 (87) 94 12/09/19 20:00 Nasal Cannula 1.0 12/09/19 20:00 74 28 128/70 (89) 95 12/09/19 19:00 78 31 120/70 (87) 95 12/09/19 18:30 77 31 117/79 (92) 95 12/09/19 18:00 88 25 125/72 (89) 95 12/09/19 17:30 99.2 79 29 128/73 (91) 96 12/09/19 17:00 77 31 117/78 (91) 97 12/09/19 16:00 78 30 116/69 (85) 95 12/09/19 16:00 77 12/09/19 16:00 Nasal Cannula 1.0 12/09/19 15:30 73 29 113/75 (88) 95 12/09/19 15:00 80 32 121/77 (92) 96 12/09/19 14:30 79 33 117/79 (92) 95 12/09/19 14:00 79 28 114/70 (85) 95 12/09/19 13:30 77 28 121/77 (92) 97 12/09/19 13:00 99.4 72 28 130/73 (92) 98 12/09/19 13:00 130/73 Intake and Output 12/09/19 12/10/19 19:00 07:00 Intake Total 743.750 ml 1090.5 ml Output Total 470 ml 550 ml Balance 273.750 ml 540.5 ml Intake Oral 320 ml 100 ml IV Total 423.750 ml 990.5 ml Output Urine Total 470 ml 550 ml # Bowel Movements 1 Laboratory Tests 12/10/19 05:29: White Blood Count 5.5, Red Blood Count 4.31L, Hemoglobin 12.5L, Hematocrit 36.1L , Mean Corpuscular Volume 84, Mean Corpuscular Hemoglobin 29.1, Mean Corpuscular Hemoglobin Concent 34.7, Red Cell Distribution Width 10.6L, Platelet Count 122L, Mean Platelet Volume 7.6, Neutrophils (%) (Auto) 79.6H, Lymphocytes (%) (Auto) 12.2L, Monocytes (%) (Auto) 7.5, Eosinophils (%) (Auto) 0.4, Basophils (%) (Auto) 0.4, Fibrinogen 559H, D-Dimer 12.03H, Sodium Level 137 , Potassium Level 3.8, Chloride Level 101, Carbon Dioxide Level 28, Anion Gap 8 , Blood Urea Nitrogen 17, Creatinine 0.8, Estimat Glomerular Filtration Rate > 60, Glucose Level 153H, Lactic Acid Level 1.00, Calcium Level 8.0L, Ferritin > 2000H, C-Reactive Protein, Quantitative 22.3H Height (Feet): 5 Height (Inches): 8.00 Weight (Pounds): 180 General Appearance: lethargic EENT: normal ENT inspection Neck: normal alignment Cardiovascular: normal rate, regular rhythm Respiratory/Chest: no respiratory distress, no accessory muscle use Extremities: normal inspection Skin: normal pigmentation Tee Novoa DO Dec 10, 2019 12:46
--- NOTE | 2019-12-10 17:56 | NUR ---
NURSE NOTES: Bed bath given to patient, patient tolerated well, no signs of acute distress, patient denies any pain. Will continue to monitor.
--- NOTE | 2019-12-10 19:06 | NUR ---
HAND-OFF: Report given to Indy JIMENEZ.
--- NOTE | 2019-12-10 19:30 | Progress Note ---
DATE: 12/10/2019 SUBJECTIVE: The patient is a 69-year-old male with, , hypotension, sepsis, but he has altered mental status, confusion, decline in cognition below his baseline. DIAGNOSIS: Major depressive disorder, mild, recurrent with psychotic features, rule out dementia with psychosis. PLAN: I am going to continue treat this patient with psychotropic medications to prevent any further decline in his cognition and continued to be followed by Psychiatry throughout hospital course. Chart reviewed and discussed with staff. Seen and assessed in the room. A 20 minutes of of behavioral management provided. Mirna Adkins M.D. DR: Blake JOB#: [id number] CC:
--- NOTE | 2019-12-10 19:44 | NUR ---
NURSE NOTES: received report from minna rn pt awake and confuse follows simple command reposition and suction on il n/c o2 sat 96 %no acute resp distress noted
[2019-12-10] MEDS: Dyna-Hex 2% Top Sol 2oz TOPIC SCH (20:36)
--- NOTE | 2019-12-10 22:00 | NUR ---
NURSE NOTES: REPOSITION AND SUCTION NO RESP DISTRESS NOTED
[2019-12-11] VITALS (16 sets, daily range): BP systolic 107–137; BP diastolic 64–82
--- NOTE | 2019-12-11 | NUR ---
NURSE NOTES: CONDITION UN CHANGE
--- NOTE | 2019-12-11 02:12 | NUR ---
NURSE NOTES: asleep reposition and suction
--- NOTE | 2019-12-11 04:00 | NUR ---
NURSE NOTES: complete bed bath oral care back care done
[2019-12-11 05:52] LABS: BASOPHILS % (AUTO) 0.3 % (0.0-2.0); EOSINOPHILS % (AUTO) 1.3 % (0.0-3.0); HEMATOCRIT 34.7 % (42.0-52.0); HEMOGLOBIN 12.1 G/DL (14.2-18.0); LYMPHOCYTES % (AUTO) 11.8 % (20.0-45.0); MEAN CORPUSCULAR VOLUME 84 FL (80-99); MONOCYTES % (AUTO) 6.2 % (1.0-10.0); NEUTROPHILS % (AUTO) 80.5 % (45.0-75.0); PLATELET COUNT 133 K/UL (150-450); WHITE BLOOD COUNT 7.6 K/UL (4.8-10.8)
--- NOTE | 2019-12-11 06:00 | NUR ---
NURSE NOTES: asleep no acute resp distress noted
[2019-12-11 06:05] LABS: ANION GAP 9 mmol/L (5-15); BLOOD UREA NITROGEN 17 mg/dL (7-18); CALCIUM 7.8 MG/DL (8.5-10.1); CARBON DIOXIDE 27 MMOL/L (21-32); CHLORIDE 103 MMOL/L (98-107); CREATININE 0.8 MG/DL (0.55-1.30); POTASSIUM 3.6 MMOL/L (3.5-5.1); SODIUM 139 MMOL/L (136-145)
--- NOTE | 2019-12-11 07:31 | NUR ---
HAND-OFF: Report given to bryanna nixon using sbar.
[2019-12-11] MEDS ORDERED: Cefepime 1gm vial ONE (07:47)
--- NOTE | 2019-12-11 08:00 | NUR ---
NURSE NOTES: Received change of shift report from Indy JIMENEZ. Pt is awake, alert, oriented x2, on 1L of oxygen via nasal cannula at 94-96% O2Sat with no respiratory distress. Denies any pain or discomfort at this time. NSR on court monitor, HR 84. Temp 99F axillary. Pt has left hand #20G saline locked, patent/intact, and right femoral TLC, infusing NS at 75ml/hour. Mosqueda catheter is present, draining clear/yellow urine. Skin is intact. HOB at [facility], bed locked, in lowest position, three side rails up, and call light placed within reach. Pt is on seizure precautions, side rails padded, and suction set up at bedside. No episodes of seizure noted. Will continue to monitor pt and follow plan of care.
[2019-12-11] MEDS: Cefepime HCl 1 GM in D5W 55 ML IVPB SCH (08:08)
[2019-12-11] MEDS: Memantine 5 MG TAB ORAL SCH (08:09)
--- NOTE | 2019-12-11 08:48 | General Progress Note ---
Assessment/Plan Problem List: (1) Suspected COVID-19 virus infection ICD Codes: Z20.828 - Contact with and (suspected) exposure to other viral communicable diseases SNOMED: 583366095 (2) Anemia ICD Codes: D64.9 - Anemia, unspecified SNOMED: 656965112 (3) Weak ICD Codes: R53.1 - Weakness SNOMED: 65898139 (4) COPD (chronic obstructive pulmonary disease) ICD Codes: J44.9 - Chronic obstructive pulmonary disease, unspecified SNOMED: 03334252 (5) Diabetes ICD Codes: E11.9 - Type 2 diabetes mellitus without complications SNOMED: 60684247 (6) Epileptic seizure, generalized ICD Codes: G40.309 - Generalized idiopathic epilepsy and epileptic syndromes, not intractable, without status epilepticus SNOMED: 55610780 (7) Altered mental status ICD Codes: R41.82 - Altered mental status, unspecified SNOMED: 133135320 Qualifiers: Qualified Codes: R41.82 - Altered mental status, unspecified (8) Hypotension ICD Codes: I95.9 - Hypotension, unspecified SNOMED: 51200456 Qualifiers: Qualified Codes: I95.9 - Hypotension, unspecified Status: unchanged Assessment/Plan: o2 pulm tx abx pt diet cbc bmp am Subjective Constitutional: Reports: weakness Allergies: Coded Allergies: No Known Allergies (Unverified , 07/28/14) All Systems: reviewed and negative except above Subjective o2nc calm in bed in icu Objective Last 24 Hour Vital Signs Date Time Temp Pulse Resp B/P (MAP) Pulse Ox O2 Delivery O2 Flow Rate FiO2 12/11/19 08:00 Nasal Cannula 1.0 12/11/19 08:00 77 12/11/19 08:00 99.0 78 28 107/67 (80) 100 12/11/19 07:00 76 30 121/72 (88) 100 12/11/19 06:00 82 31 127/75 (92) 100 12/11/19 05:00 82 30 122/75 (91) 98 12/11/19 04:00 98.8 77 31 122/72 (89) 100 12/11/19 04:00 74 12/11/19 04:00 Nasal Cannula 1.0 12/11/19 03:00 80 32 130/73 (92) 100 12/11/19 02:00 77 30 122/73 (89) 100 12/11/19 01:00 79 30 120/79 (93) 100 12/11/19 00:00 Nasal Cannula 1.0 12/11/19 00:00 98.8 82 31 117/74 (88) 100 12/11/19 00:00 79 12/10/19 23:00 79 31 123/76 (92) 100 12/10/19 22:00 77 29 118/71 (87) 98 12/10/19 21:00 76 30 127/77 (94) 92 12/10/19 20:46 95 Nasal Cannula 3.0 32 12/10/19 20:00 77 12/10/19 20:00 98.5 73 28 123/75 (91) 88 12/10/19 20:00 Nasal Cannula 1.0 12/10/19 19:00 78 28 119/75 (90) 94 12/10/19 18:00 84 26 116/77 (90) 100 12/10/19 17:00 98.3 74 29 113/85 (94) 94 12/10/19 16:00 75 12/10/19 16:00 82 31 117/62 (80) 95 12/10/19 16:00 Nasal Cannula 1.0 12/10/19 15:00 71 26 124/73 (90) 95 12/10/19 14:00 74 24 127/85 (99) 96 12/10/19 13:00 97.3 78 27 125/81 (96) 93 12/10/19 12:00 Nasal Cannula 1.0 12/10/19 12:00 83 28 117/77 (90) 92 12/10/19 11:22 84 12/10/19 11:00 83 29 114/82 (93) 94 12/10/19 10:00 83 29 126/76 (93) 94 12/10/19 09:00 100.0 87 33 116/79 (91) 94 Intake and Output 12/10/19 12/11/19 19:00 07:00 Intake Total 1030 ml 930 ml Output Total 515 ml 610 ml Balance 515 ml 320 ml Intake Oral 50 ml IV Total 1030 ml 880 ml Output Urine Total 515 ml 610 ml Laboratory Tests 12/11/19 04:30: White Blood Count 7.6, Red Blood Count 4.10L, Hemoglobin 12.1L, Hematocrit 34.7L , Mean Corpuscular Volume 84, Mean Corpuscular Hemoglobin 29.4, Mean Corpuscular Hemoglobin Concent 34.9, Red Cell Distribution Width 11.0L, Platelet Count 133L, Mean Platelet Volume 7.9, Neutrophils (%) (Auto) 80.5H, Lymphocytes (%) (Auto) 11.8L, Monocytes (%) (Auto) 6.2, Eosinophils (%) (Auto) 1.3, Basophils (%) (Auto) 0.3, Sodium Level 139, Potassium Level 3.6, Chloride Level 103, Carbon Dioxide Level 27, Anion Gap 9, Blood Urea Nitrogen 17, Creatinine 0.8, Estimat Glomerular Filtration Rate > 60, Glucose Level 137H, Calcium Level 7.8L Height (Feet): 5 Height (Inches): 8.00 Weight (Pounds): 174 General Appearance: lethargic EENT: normal ENT inspection Neck: normal alignment Cardiovascular: normal rate, regular rhythm Respiratory/Chest: no respiratory distress, no accessory muscle use Extremities: normal inspection Skin: normal pigmentation Tee Novoa DO Dec 11, 2019 08:48
--- NOTE | 2019-12-11 09:21 | NUR ---
NURSE NOTES: Received order from Dr Montalvo to transfer pt to Med-Surg, order processed, charge nurse aware. Pt is awake, watching TV. AM meds were administered. VS remain stable.
--- NOTE | 2019-12-11 10:02 | Pulmonology Progress Note ---
Assessment/Plan Assessment/Plan IMPRESSION: 1. Cardiomyopathy. 2. Hypotension. 3. Left lung pneumonia. 4. senior living resident. 5. Positive COVID-19. DISCUSSION: 1. Continue isolation 2. Continue current medications. 3. Off pressors. 4. Oxygen. 5. Pulmonary hygiene. 6. Broad-spectrum antibiotics. 7. I will follow. 8. Transfer to med-surg Mike Montalvo M.D. Subjective Interval Events: Looking better; off levophed; afebrile Constitutional: Reports: no symptoms Respiratory: Reports: no symptoms Cardiovascular: Reports: no symptoms Gastrointestinal/Abdominal: Reports: no symptoms Genitourinary: Reports: no symptoms Neurologic: Reports: no symptoms Allergies: Coded Allergies: No Known Allergies (Unverified , 07/28/14) All Systems: reviewed and negative except above Objective Last 24 Hour Vital Signs Date Time Temp Pulse Resp B/P (MAP) Pulse Ox O2 Delivery O2 Flow Rate FiO2 12/11/19 09:00 89 33 120/68 (85) 94 12/11/19 08:00 Nasal Cannula 1.0 12/11/19 08:00 77 12/11/19 08:00 99.0 78 28 107/67 (80) 100 12/11/19 07:00 76 30 121/72 (88) 100 12/11/19 06:00 82 31 127/75 (92) 100 12/11/19 05:00 82 30 122/75 (91) 98 12/11/19 04:00 98.8 77 31 122/72 (89) 100 12/11/19 04:00 74 12/11/19 04:00 Nasal Cannula 1.0 12/11/19 03:00 80 32 130/73 (92) 100 12/11/19 02:00 77 30 122/73 (89) 100 12/11/19 01:00 79 30 120/79 (93) 100 12/11/19 00:00 Nasal Cannula 1.0 12/11/19 00:00 98.8 82 31 117/74 (88) 100 12/11/19 00:00 79 12/10/19 23:00 79 31 123/76 (92) 100 12/10/19 22:00 77 29 118/71 (87) 98 12/10/19 21:00 76 30 127/77 (94) 92 12/10/19 20:46 95 Nasal Cannula 3.0 32 12/10/19 20:00 77 12/10/19 20:00 98.5 73 28 123/75 (91) 88 12/10/19 20:00 Nasal Cannula 1.0 12/10/19 19:00 78 28 119/75 (90) 94 12/10/19 18:00 84 26 116/77 (90) 100 12/10/19 17:00 98.3 74 29 113/85 (94) 94 12/10/19 16:00 75 12/10/19 16:00 82 31 117/62 (80) 95 12/10/19 16:00 Nasal Cannula 1.0 12/10/19 15:00 71 26 124/73 (90) 95 12/10/19 14:00 74 24 127/85 (99) 96 12/10/19 13:00 97.3 78 27 125/81 (96) 93 12/10/19 12:00 Nasal Cannula 1.0 12/10/19 12:00 83 28 117/77 (90) 92 12/10/19 11:22 84 12/10/19 11:00 83 29 114/82 (93) 94 Intake and Output 12/10/19 12/11/19 19:00 07:00 Intake Total 1030 ml 930 ml Output Total 515 ml 610 ml Balance 515 ml 320 ml Intake Oral 50 ml IV Total 1030 ml 880 ml Output Urine Total 515 ml 610 ml General Appearance: no acute distress HEENT: normocephalic Respiratory/Chest: chest wall non-tender, lungs clear Cardiovascular: normal peripheral pulses Abdomen: normal bowel sounds Laboratory Tests 12/11/19 04:30: White Blood Count 7.6, Red Blood Count 4.10L, Hemoglobin 12.1L, Hematocrit 34.7L , Mean Corpuscular Volume 84, Mean Corpuscular Hemoglobin 29.4, Mean Corpuscular Hemoglobin Concent 34.9, Red Cell Distribution Width 11.0L, Platelet Count 133L, Mean Platelet Volume 7.9, Neutrophils (%) (Auto) 80.5H, Lymphocytes (%) (Auto) 11.8L, Monocytes (%) (Auto) 6.2, Eosinophils (%) (Auto) 1.3, Basophils (%) (Auto) 0.3, Sodium Level 139, Potassium Level 3.6, Chloride Level 103, Carbon Dioxide Level 27, Anion Gap 9, Blood Urea Nitrogen 17, Creatinine 0.8, Estimat Glomerular Filtration Rate > 60, Glucose Level 137H, Calcium Level 7.8L Current Medications Medications (Trade) Dose Ordered Sig/Wiley Route PRN Reason Start Time Stop Time Status Last Admin Dose Admin Acetaminophen (Tylenol) 650 mg Q6H PRN ORAL Temp >100.5 12/08/19 08:45 01/07/20 08:44 12/10/19 08:16 Cefepime HCl 1 gm/ Dextrose 55 ml @ 110 mls/hr Q12H IVPB 12/07/19 20:00 12/14/19 19:59 12/11/19 08:08 Chlorhexidine Gluconate (Milagro-Hex 2%) 1 applic DAILY@2000 TOPIC 12/07/19 20:00 03/06/20 19:59 12/10/19 20:36 Gabapentin (Neurontin) 300 mg Q8HR ORAL 12/07/19 00:00 01/06/20 00:00 12/11/19 06:04 Levetiracetam (Keppra) 1,000 mg Q12HR ORAL 12/07/19 00:00 01/06/20 00:00 12/11/19 08:08 Lorazepam (Ativan 2mg/ml 1ml) 1 mg EVERY 6 HOURS PRN IV For Anxiety 12/07/19 16:00 12/14/19 15:59 Memantine (Namenda) 5 mg DAILY ORAL 12/07/19 17:00 01/06/20 16:59 12/11/19 08:09 Norepinephrine Bitartrate 4 mg/ Dextrose 250 ml @ 0 mls/hr Q24H PRN IV For hypotension 12/06/19 23:00 01/05/20 22:59 12/07/19 10:25 Sodium Chloride 1,000 ml @ 75 mls/hr [id number] IV 12/06/19 23:00 01/05/20 22:59 12/11/19 06:12 Mike Montalvo MD Dec 11, 2019 10:02
--- NOTE | 2019-12-11 10:39 | NUR ---
CASE MANAGEMENT: REVIEW SI: SEPSIS . COVID-19 T 98.8 HR 82 RR 31 BP 117/74 SAT 92% NC/3L H/H 12.1/34.7 CALCIUM 7.8 IS: NS IVF @ 75ML/HR CEFEPIME IV Q12HR KEPPRA PO Q12HR GABAPENTIN PO Q8HR CLEAR LIQUID DIET MED/SURG STATUS DCP: PATIENT IS FROM [facility]
--- NOTE | 2019-12-11 11:00 | NUR ---
NURSE NOTES: Pt was cleaned, gown/bed linens were changed. Pt was repositioned with bilateral lower extremities elevated, off/heels. VS remain stable. Awaiting for Med/Surg bed to be cleaned, to transfer pt.
--- NOTE | 2019-12-11 12:25 | Cardiac Electrophysiology PN ---
Assessment/Plan Assessment/Plan 1. S/P Shock due to cardiomyopathy EF 40 and sepsis. His BNP is 736. On iv Abx by Dr. Sanchez Off Levophed since 12/09/19 2. Cardiomyopathy EF 40%. Resume Coreg 3.125 bid 3. Status post right-sided MERT ICD. 4. History of hypertension 5. History of CVA with residual weakness. 6. COVID-19 PNA off the vent DW RN Subjective Subjective In ICU still on 2 liter NC. Covid is positive. Being transferred to [facility] Objective Last 24 Hour Vital Signs Date Time Temp Pulse Resp B/P (MAP) Pulse Ox O2 Delivery O2 Flow Rate FiO2 12/11/19 11:00 90 28 122/65 (84) 96 12/11/19 10:00 82 28 124/71 (88) 95 12/11/19 09:00 89 33 120/68 (85) 94 12/11/19 08:00 Nasal Cannula 1.0 12/11/19 08:00 77 12/11/19 08:00 99.0 78 28 107/67 (80) 100 12/11/19 07:00 76 30 121/72 (88) 100 12/11/19 06:00 82 31 127/75 (92) 100 12/11/19 05:00 82 30 122/75 (91) 98 12/11/19 04:00 98.8 77 31 122/72 (89) 100 12/11/19 04:00 74 12/11/19 04:00 Nasal Cannula 1.0 12/11/19 03:00 80 32 130/73 (92) 100 12/11/19 02:00 77 30 122/73 (89) 100 12/11/19 01:00 79 30 120/79 (93) 100 12/11/19 00:00 Nasal Cannula 1.0 12/11/19 00:00 98.8 82 31 117/74 (88) 100 12/11/19 00:00 79 12/10/19 23:00 79 31 123/76 (92) 100 12/10/19 22:00 77 29 118/71 (87) 98 12/10/19 21:00 76 30 127/77 (94) 92 12/10/19 20:46 95 Nasal Cannula 3.0 32 12/10/19 20:00 77 12/10/19 20:00 98.5 73 28 123/75 (91) 88 12/10/19 20:00 Nasal Cannula 1.0 12/10/19 19:00 78 28 119/75 (90) 94 12/10/19 18:00 84 26 116/77 (90) 100 12/10/19 17:00 98.3 74 29 113/85 (94) 94 12/10/19 16:00 75 12/10/19 16:00 82 31 117/62 (80) 95 12/10/19 16:00 Nasal Cannula 1.0 12/10/19 15:00 71 26 124/73 (90) 95 12/10/19 14:00 74 24 127/85 (99) 96 12/10/19 13:00 97.3 78 27 125/81 (96) 93 Intake and Output 12/10/19 12/11/19 19:00 07:00 Intake Total 1030 ml 930 ml Output Total 515 ml 610 ml Balance 515 ml 320 ml Intake Oral 50 ml IV Total 1030 ml 880 ml Output Urine Total 515 ml 610 ml Laboratory Tests Test 12/11/19 04:30 White Blood Count 7.6 K/UL (4.8-10.8) Red Blood Count 4.10 M/UL (4.70-6.10) L Hemoglobin 12.1 G/DL (14.2-18.0) L Hematocrit 34.7 % (42.0-52.0) L Mean Corpuscular Volume 84 FL (80-99) Mean Corpuscular Hemoglobin 29.4 PG (27.0-31.0) Mean Corpuscular Hemoglobin Concent 34.9 G/DL (32.0-36.0) Red Cell Distribution Width 11.0 % (11.6-14.8) L Platelet Count 133 K/UL (150-450) L Mean Platelet Volume 7.9 FL (6.5-10.1) Neutrophils (%) (Auto) 80.5 % (45.0-75.0) H Lymphocytes (%) (Auto) 11.8 % (20.0-45.0) L Monocytes (%) (Auto) 6.2 % (1.0-10.0) Eosinophils (%) (Auto) 1.3 % (0.0-3.0) Basophils (%) (Auto) 0.3 % (0.0-2.0) Sodium Level 139 MMOL/L (136-145) Potassium Level 3.6 MMOL/L (3.5-5.1) Chloride Level 103 MMOL/L (98-107) Carbon Dioxide Level 27 MMOL/L (21-32) Anion Gap 9 mmol/L (5-15) Blood Urea Nitrogen 17 mg/dL (7-18) Creatinine 0.8 MG/DL (0.55-1.30) Estimat Glomerular Filtration Rate > 60 mL/min (>60) Glucose Level 137 MG/DL (74-106) H Calcium Level 7.8 MG/DL (8.5-10.1) L Objective HEAD AND NECK: Mild JVD. LUNGS: Decreased breath sounds. CARDIOVASCULAR: Regular S1 and S2 with no gallop. ABDOMEN: Soft. EXTREMITIES: 1+ pitting edema. Defibrillator is in right subclavian. Shai Bullard MD Dec 11, 2019 12:25
--- NOTE | 2019-12-11 12:50 | NUR ---
TRANSFER TO FLOOR: Patient transferred to Med Surg from ICU via hospital bed while on 2L of oxygen. VS remain stable. Temp 98.6F axillary. Transfer hand-off report was given to Thaddeus JIMENEZ. Pt's belonging's list was checked and signed. Skin is intact. Endorsed plan of care.
--- NOTE | 2019-12-11 13:30 | NUR ---
NURSE NOTES: Patient awake, alert x2; on Nasal Cannula 2 Liters, no sing of distress shortness of breath; Mosqueda in place, drains urine well; IV Left Hand TKO and Right Femoral Triple lumen NS 75cc running, dressing dry and intact; patient's own denture upper and lower at the bed side; belonging list crossed match and singed by transfer and receiving nurse; patients wallet at the bed side, patient doesn't want the wallet to be kept in a safe box; side rails up x2, breaks engaged, bed at lowest position, bed alarm on; call light within reach; will care out the place of care.
[2019-12-11] MEDS ORDERED: LORazepam Inj 2mg/ml 1ml IV PRN (14:30)
--- NOTE | 2019-12-11 17:30 | Progress Note ---
DATE: 12/11/2019 SUBJECTIVE: This is a 69-year-old patient with altered mental status. This patient continues to have some confusion, some disorganized thought process, and decline in cognition below baseline that is why his attending physician has requested daily psychiatric consultation. The patient has diagnosis of pyelonephritis. He also has , sepsis, anemia, diabetes, rule out COVID-19 infection. He has altered mental status and decline in cognition below his baseline that is why his attending physician has requested daily psychiatric consultation. MENTAL STATUS EXAMINATION: This is a 69-year-old male. Appearance is disheveled. Attitude, irritable and agitated. Affect, guarded and restricted. Intellect poor. Mood, depressed and anxious. Motor activity, psychomotor agitation. Attention span is poor. Orientation x2. Speech is low volume and slurred. Thought process, disorganized and illogical. Insight and judgment is poor. DIAGNOSIS: Major depressive disorder, mild, recurrent with psychotic features rule out dementia with psychosis. PLAN: Treat with Namenda 5 mg daily, Ativan 1 mg IV every 6 hours p.r.n. anxiety and agitation, Neurontin 300 mg p.o. every 8 hours. A 20 minutes of reality-based supportive psychotherapy. A 20-minutes of insight-oriented psychotherapy to help him understand his current physical and mental illness so that he has better impulse control and behavior on the unit. Chart reviewed and discussed with staff. Seen and assessed at bedside. Mirna Adkins M.D. DR: Blake JOB#: [id number] CC:
--- NOTE | 2019-12-11 17:48 | Infectious Diseases Prog Note ---
Assessment/Plan Assessment/Plan Assessment: Septic shock-off pressors now Fever No leukocytosis -u/a neg -Bcx NTD Probable PNA- 2ry to COVID19 (from [place] with confirmed cases) At [facility] -12/09 CXR: Bilateral mid and lower lung interstitial disease, new since prior study.Possible developing left pleural effusion Ferritn >2000, CRP 22.3 -12/05 SARS-COV2 PCR + -CXR: Left basilar atelectasis and/or infiltrate TRAE, improving HTN cadiomyopathy s/p AICD CVA x3 w/ residual R side weakness seizure disorder [place] resident ([facility]) Plan: -Dc empiric Cefepime #6/5 and monitor off abx -12/08 SP IV Vancomycin #4 -f/u cx -Monitor CBC/CMP, temperatures -COV 19 precautions -clarify goals of care -aspiration precautions -inflamatory markers Thank you for consulting [facility]. Will continue to follow along with you. Discussed with RN, Subjective Allergies: Coded Allergies: No Known Allergies (Unverified , 07/28/14) Subjective Tm100.8 at [facility] transferred out ICU to [facility] Objective Vital Signs Last 24 Hour Vital Signs Date Time Temp Pulse Resp B/P (MAP) Pulse Ox O2 Delivery O2 Flow Rate FiO2 12/11/19 16:00 100.8 94 25 119/77 (91) 95 12/11/19 13:00 98.6 83 19 137/79 (98) 96 12/11/19 12:00 Nasal Cannula 1.0 12/11/19 12:00 98.6 86 26 126/64 (84) 96 12/11/19 12:00 80 12/11/19 11:00 90 28 122/65 (84) 96 12/11/19 10:00 82 28 124/71 (88) 95 12/11/19 09:36 96 Nasal Cannula 3.0 32 12/11/19 09:00 89 33 120/68 (85) 94 12/11/19 08:00 Nasal Cannula 1.0 12/11/19 08:00 77 12/11/19 08:00 99.0 78 28 107/67 (80) 100 12/11/19 07:00 76 30 121/72 (88) 100 12/11/19 06:00 82 31 127/75 (92) 100 12/11/19 05:00 82 30 122/75 (91) 98 12/11/19 04:00 98.8 77 31 122/72 (89) 100 12/11/19 04:00 74 12/11/19 04:00 Nasal Cannula 1.0 12/11/19 03:00 80 32 130/73 (92) 100 12/11/19 02:00 77 30 122/73 (89) 100 12/11/19 01:00 79 30 120/79 (93) 100 12/11/19 00:00 Nasal Cannula 1.0 12/11/19 00:00 98.8 82 31 117/74 (88) 100 12/11/19 00:00 79 12/10/19 23:00 79 31 123/76 (92) 100 12/10/19 22:00 77 29 118/71 (87) 98 12/10/19 21:00 76 30 127/77 (94) 92 12/10/19 20:46 95 Nasal Cannula 3.0 32 12/10/19 20:00 77 12/10/19 20:00 98.5 73 28 123/75 (91) 88 12/10/19 20:00 Nasal Cannula 1.0 12/10/19 19:00 78 28 119/75 (90) 94 12/10/19 18:00 84 26 116/77 (90) 100 Height (Feet): 5 Height (Inches): 8.00 Weight (Pounds): 174 Objective not examined to limit COVID19 exposure Laboratory Tests Test 12/11/19 04:30 White Blood Count 7.6 K/UL (4.8-10.8) Red Blood Count 4.10 M/UL (4.70-6.10) L Hemoglobin 12.1 G/DL (14.2-18.0) L Hematocrit 34.7 % (42.0-52.0) L Mean Corpuscular Volume 84 FL (80-99) Mean Corpuscular Hemoglobin 29.4 PG (27.0-31.0) Mean Corpuscular Hemoglobin Concent 34.9 G/DL (32.0-36.0) Red Cell Distribution Width 11.0 % (11.6-14.8) L Platelet Count 133 K/UL (150-450) L Mean Platelet Volume 7.9 FL (6.5-10.1) Neutrophils (%) (Auto) 80.5 % (45.0-75.0) H Lymphocytes (%) (Auto) 11.8 % (20.0-45.0) L Monocytes (%) (Auto) 6.2 % (1.0-10.0) Eosinophils (%) (Auto) 1.3 % (0.0-3.0) Basophils (%) (Auto) 0.3 % (0.0-2.0) Sodium Level 139 MMOL/L (136-145) Potassium Level 3.6 MMOL/L (3.5-5.1) Chloride Level 103 MMOL/L (98-107) Carbon Dioxide Level 27 MMOL/L (21-32) Anion Gap 9 mmol/L (5-15) Blood Urea Nitrogen 17 mg/dL (7-18) Creatinine 0.8 MG/DL (0.55-1.30) Estimat Glomerular Filtration Rate > 60 mL/min (>60) Glucose Level 137 MG/DL (74-106) H Calcium Level 7.8 MG/DL (8.5-10.1) L Current Medications Medications (Trade) Dose Ordered Sig/Wiley Route PRN Reason Start Time Stop Time Status Last Admin Dose Admin Acetaminophen (Tylenol) 650 mg Q6H PRN ORAL Temp >100.5 12/11/19 14:45 01/07/20 08:44 12/11/19 17:29 Carvedilol (Coreg) 3.125 mg EVERY 12 HOURS ORAL 12/11/19 21:00 01/10/20 20:59 Cefepime HCl 1 gm/ Dextrose 55 ml @ 110 mls/hr Q12H IVPB 12/11/19 20:00 12/14/19 19:59 Chlorhexidine Gluconate (Milagro-Hex 2%) 1 applic DAILY@2000 TOPIC 12/11/19 20:00 03/06/20 19:59 Gabapentin (Neurontin) 300 mg Q8HR ORAL 12/11/19 22:00 01/06/20 00:00 Levetiracetam (Keppra) 1,000 mg Q12HR ORAL 12/11/19 21:00 01/06/20 00:00 Lorazepam (Ativan 2mg/ml 1ml) 1 mg Q6H PRN IV For Anxiety 12/11/19 14:30 12/18/19 14:29 Memantine (Namenda) 5 mg DAILY ORAL 12/12/19 09:00 01/06/20 16:59 Sodium Chloride 1,000 ml @ 75 mls/hr [id number] IV 12/11/19 14:15 01/05/20 22:59 12/11/19 15:20 Sujatha Sanchez M.D. Dec 11, 2019 17:48
--- NOTE | 2019-12-11 19:06 | NUR ---
HAND-OFF: Report given to BARBARA Jordan.
--- NOTE | 2019-12-11 19:30 | NUR ---
NURSE NOTES: RECEIVED PATIENT FROM BARBARA BARAHONA. PATIENT IS AWAKE, AAOX1, ON NC 2L, NO ACUTE DISTRESS NOTED. PATIENT PULLED OUT HIS IV ON LEFT HAND 20G. RIGHT FEMORAL TRIPLE LUMEN INTACT AND PATENT, RUNNING NS @ 75ML/HR. BED IS LOCKED AND LOW, BED ALARMS ACTIVE, SIDE RAILS UP X2 AND CALL LIGHT IS WITHIN REACH. WILL CONTINUE TO MONITOR.
[2019-12-11] MEDS ORDERED: Cefepime HCl 1 GM in D5W 55 ML IVPB SCH (20:00)
[2019-12-11] MEDS: Dyna-Hex 2% Top Sol 2oz TOPIC SCH (22:44)
[2019-12-12] VITALS: BP 127/80
[2019-12-12 04:00] VITALS: BP 136/83
--- NOTE | 2019-12-12 06:02 | NUR ---
NURSE NOTES: UNABLE TO DRAW AM LABS D/T NO BUTTERFLY NEEDLES STOCKED. WILL ENDORSED TO AM SHIFT.
--- NOTE | 2019-12-12 07:58 | NUR ---
HAND-OFF: Report given to BARBARA Herbert.
[2019-12-12 08:00] VITALS: BP 103/65
[2019-12-12 08:00] LABS: BASOPHILS % (AUTO) 0.6 % (0.0-2.0); EOSINOPHILS % (AUTO) 3.1 % (0.0-3.0); HEMATOCRIT 33.9 % (42.0-52.0); HEMOGLOBIN 11.6 G/DL (14.2-18.0); LYMPHOCYTES % (AUTO) 13.6 % (20.0-45.0); MEAN CORPUSCULAR VOLUME 85 FL (80-99); MONOCYTES % (AUTO) 6.8 % (1.0-10.0); NEUTROPHILS % (AUTO) 75.9 % (45.0-75.0); PLATELET COUNT 147 K/UL (150-450); RED CELL DISTRIBUTION WIDTH 10.8 % (11.6-14.8); WHITE BLOOD COUNT 8.2 K/UL (4.8-10.8)
[2019-12-12] MEDS: Memantine 5 MG TAB ORAL SCH (08:16)
[2019-12-12 08:27] LABS: ANION GAP 8 mmol/L (5-15); BLOOD UREA NITROGEN 15 mg/dL (7-18); CALCIUM 8.6 MG/DL (8.5-10.1); CARBON DIOXIDE 28 MMOL/L (21-32); CHLORIDE 103 MMOL/L (98-107); CREATININE 0.9 MG/DL (0.55-1.30); POTASSIUM 3.3 MMOL/L (3.5-5.1); SODIUM 139 MMOL/L (136-145)
--- NOTE | 2019-12-12 09:25 | NUR ---
nurse notes left message to Dr Sanchez office regarding patient PICC line , per radiolaogy unable to insert PICC line to this patient , poor IV access, and they already inserted 5 x, and patient pulled out, and in case they will insert the PICC LINE TODAY ther's no MD to read the C XRAY for x ray verification BARBARA GALLARDO
--- NOTE | 2019-12-12 09:30 | NUR ---
NURSE NOTES Received patient resting comfortably in bed, patient awake, oriented x1 confused ,no sign of distress, O2 at 2 LPM via NC,no fascial grimace or pain or discomfort noted, on going IVF patent and infusing well, Mosqueda cath to gravity, via right femural TLC, on fall precaution observed and maintained, plan of care was discussed verbalized understanding , 4, P's in progress call light w/n waqas mancini RN Addendum: 12/12/19 at 1820 by HEBER FINLEY RN RN NURSE NOTES from 729 Received patient resting comfortably in bed, patient awake, oriented x1 confused ,no sign of distress, O2 at 2 LPM via NC,no fascial grimace or pain or discomfort noted, on going IVF patent and infusing well,via right femural TLC, Mosqueda cath to gravity, on fall precaution observed and maintained, plan of care was discussed verbalized understanding , 4 P's in progress call light w/n waqas , Will continue to monitor patient condition hussain mancini
--- NOTE | 2019-12-12 10:41 | Diagnostic Imaging Report ---
Indication: Cough Technique: One view of the chest Comparison: 12/10/2019 Findings: Interstitial and airspace infiltrates versus edema in the bilateral mid to lower lungs and right upper lobe appears somewhat improved. The heart remains enlarged. There may be some pleural fluid on the left, unchanged if real. Right chest AICD remains Impression: Slightly improved bilateral interstitial and airspace infiltrates versus edema
--- NOTE | 2019-12-12 11:03 | General Progress Note ---
Assessment/Plan Problem List: (1) Suspected COVID-19 virus infection ICD Codes: Z20.828 - Contact with and (suspected) exposure to other viral communicable diseases SNOMED: 166169860 (2) Anemia ICD Codes: D64.9 - Anemia, unspecified SNOMED: 103753195 (3) Weak ICD Codes: R53.1 - Weakness SNOMED: 59676884 (4) COPD (chronic obstructive pulmonary disease) ICD Codes: J44.9 - Chronic obstructive pulmonary disease, unspecified SNOMED: 97734150 (5) Diabetes ICD Codes: E11.9 - Type 2 diabetes mellitus without complications SNOMED: 38514453 (6) Epileptic seizure, generalized ICD Codes: G40.309 - Generalized idiopathic epilepsy and epileptic syndromes, not intractable, without status epilepticus SNOMED: 92972798 (7) Altered mental status ICD Codes: R41.82 - Altered mental status, unspecified SNOMED: 728531406 Qualifiers: Qualified Codes: R41.82 - Altered mental status, unspecified (8) Hypotension ICD Codes: I95.9 - Hypotension, unspecified SNOMED: 15130123 Qualifiers: Qualified Codes: I95.9 - Hypotension, unspecified Status: unchanged Assessment/Plan: o2 pulm tx abx pt diet cbc bmp am Subjective Constitutional: Reports: weakness Allergies: Coded Allergies: No Known Allergies (Unverified , 07/28/14) All Systems: reviewed and negative except above Subjective sleepy calm in bed Objective Last 24 Hour Vital Signs Date Time Temp Pulse Resp B/P (MAP) Pulse Ox O2 Delivery O2 Flow Rate FiO2 12/12/19 08:15 83 136/83 12/12/19 08:00 98.3 101 20 103/65 (78) 92 12/12/19 04:00 98.3 83 18 136/83 (100) 98 12/12/19 00:00 98.1 82 20 127/80 (96) 94 12/11/19 22:40 87 124/82 12/11/19 20:00 97.2 87 24 124/82 (96) 92 12/11/19 17:59 99.0 12/11/19 16:00 100.8 94 25 119/77 (91) 95 12/11/19 13:00 98.6 83 19 137/79 (98) 96 12/11/19 12:00 Nasal Cannula 1.0 4/29/20 12:00 98.6 86 26 126/64 (84) 96 12/11/19 12:00 80 Intake and Output 12/11/19 12/12/19 19:00 07:00 Intake Total 920 ml 600 ml Output Total 290 ml Balance 630 ml 600 ml Intake Oral 60 ml IV Total 860 ml 600 ml Output Urine Total 290 ml Laboratory Tests 12/12/19 05:00: White Blood Count 8.2, Red Blood Count 4.00L, Hemoglobin 11.6L, Hematocrit 33.9L , Mean Corpuscular Volume 85, Mean Corpuscular Hemoglobin 29.1, Mean Corpuscular Hemoglobin Concent 34.3, Red Cell Distribution Width 10.8L, Platelet Count 147L, Mean Platelet Volume 7.8, Neutrophils (%) (Auto) 75.9H, Lymphocytes (%) (Auto) 13.6L, Monocytes (%) (Auto) 6.8, Eosinophils (%) (Auto) 3.1H, Basophils (%) (Auto) 0.6, Sodium Level 139, Potassium Level 3.3L, Chloride Level 103, Carbon Dioxide Level 28, Anion Gap 8, Blood Urea Nitrogen 15 , Creatinine 0.9, Estimat Glomerular Filtration Rate > 60, Glucose Level 142H, Calcium Level 8.6, C-Reactive Protein, Quantitative 28.6H Height (Feet): 5 Height (Inches): 8.00 Weight (Pounds): 173 General Appearance: lethargic EENT: normal ENT inspection Neck: normal alignment Cardiovascular: normal rate, regular rhythm Respiratory/Chest: no respiratory distress, no accessory muscle use Extremities: normal inspection Skin: normal pigmentation Tee Novoa DO Dec 12, 2019 11:02
[2019-12-12 11:47] LABS: ALANINE AMINOTRANSFERASE 35 U/L (12-78); ALKALINE PHOSPHATASE 55 U/L (46-116); ASPARTATE AMINO TRANSFERASE 42 U/L (15-37); BILIRUBIN,DIRECT 0.1 MG/DL (0.0-0.3); BILIRUBIN,TOTAL 0.5 MG/DL (0.2-1.0); PHOSPHORUS 2.1 MG/DL (2.5-4.9)
[2019-12-12 12:00] VITALS: BP 130/70
--- NOTE | 2019-12-12 12:20 | Pulmonology Progress Note ---
Assessment/Plan Assessment/Plan IMPRESSION: 1. Cardiomyopathy. 2. Hypotension. 3. Left lung pneumonia. 4. alf resident. 5. Positive COVID-19. DISCUSSION: 1. Continue isolation 2. Continue current medications. 3. Off pressors. 4. Oxygen. 5. Pulmonary hygiene. 6. Broad-spectrum antibiotics. 7. I will follow. 8. Transfer to med-surg Mike Montalvo M.D. Subjective Interval Events: Looking better; off levophed; afebrile Constitutional: Reports: no symptoms Respiratory: Reports: no symptoms Cardiovascular: Reports: no symptoms Gastrointestinal/Abdominal: Reports: no symptoms Genitourinary: Reports: no symptoms Neurologic: Reports: no symptoms Allergies: Coded Allergies: No Known Allergies (Unverified , 07/28/14) All Systems: reviewed and negative except above Objective Last 24 Hour Vital Signs Date Time Temp Pulse Resp B/P (MAP) Pulse Ox O2 Delivery O2 Flow Rate FiO2 12/12/19 12:00 99.0 68 19 130/70 (90) 98 12/12/19 08:15 83 136/83 12/12/19 08:00 98.3 101 20 103/65 (78) 92 12/12/19 04:00 98.3 83 18 136/83 (100) 98 12/12/19 00:00 98.1 82 20 127/80 (96) 94 12/11/19 22:40 87 124/82 12/11/19 20:00 97.2 87 24 124/82 (96) 92 12/11/19 17:59 99.0 12/11/19 16:00 100.8 94 25 119/77 (91) 95 12/11/19 13:00 98.6 83 19 137/79 (98) 96 Intake and Output 12/11/19 12/12/19 19:00 07:00 Intake Total 920 ml 600 ml Output Total 290 ml Balance 630 ml 600 ml Intake Oral 60 ml IV Total 860 ml 600 ml Output Urine Total 290 ml General Appearance: no acute distress HEENT: normocephalic Respiratory/Chest: chest wall non-tender, lungs clear Cardiovascular: normal peripheral pulses Abdomen: normal bowel sounds Laboratory Tests 12/12/19 05:00: White Blood Count 8.2, Red Blood Count 4.00L, Hemoglobin 11.6L, Hematocrit 33.9L , Mean Corpuscular Volume 85, Mean Corpuscular Hemoglobin 29.1, Mean Corpuscular Hemoglobin Concent 34.3, Red Cell Distribution Width 10.8L, Platelet Count 147L, Mean Platelet Volume 7.8, Neutrophils (%) (Auto) 75.9H, Lymphocytes (%) (Auto) 13.6L, Monocytes (%) (Auto) 6.8, Eosinophils (%) (Auto) 3.1H, Basophils (%) (Auto) 0.6, Sodium Level 139, Potassium Level 3.3L, Chloride Level 103, Carbon Dioxide Level 28, Anion Gap 8, Blood Urea Nitrogen 15 , Creatinine 0.9, Estimat Glomerular Filtration Rate > 60, Glucose Level 142H, Uric Acid 2.8, Calcium Level 8.6, Phosphorus Level 2.1L, Magnesium Level 1.7L, Total Bilirubin 0.5, Direct Bilirubin 0.1, Aspartate Amino Transf (AST/SGOT) 42H , Alanine Aminotransferase (ALT/SGPT) 35, Alkaline Phosphatase 55, C-Reactive Protein, Quantitative 28.6H, Total Protein 6.6, Albumin 2.0L Current Medications Medications (Trade) Dose Ordered Sig/Wiley Route PRN Reason Start Time Stop Time Status Last Admin Dose Admin Acetaminophen (Tylenol) 650 mg Q6H PRN ORAL Temp >100.5 12/11/19 14:45 01/07/20 08:44 12/11/19 17:29 Carvedilol (Coreg) 3.125 mg EVERY 12 HOURS ORAL 12/11/19 21:00 01/10/20 20:59 12/12/19 08:15 Chlorhexidine Gluconate (Milagro-Hex 2%) 1 applic DAILY@1999 TOPIC 12/11/19 20:00 03/06/20 19:59 12/11/19 22:44 Gabapentin (Neurontin) 300 mg Q8HR ORAL 12/11/19 22:00 01/06/20 00:00 12/12/19 05:31 Levetiracetam (Keppra) 1,000 mg Q12HR ORAL 12/11/19 21:00 01/06/20 00:00 12/12/19 08:15 Lorazepam (Ativan 2mg/ml 1ml) 1 mg Q6H PRN IV For Anxiety 12/11/19 14:30 12/18/19 14:29 Memantine (Namenda) 5 mg DAILY ORAL 12/12/19 09:00 01/06/20 16:59 12/12/19 08:16 Sodium Chloride 1,000 ml @ 75 mls/hr [id number] IV 12/11/19 14:15 01/05/20 22:59 12/12/19 04:38 Mike Montalvo MD Dec 12, 2019 12:20
--- NOTE | 2019-12-12 13:04 | NUR ---
nurse notes patient refused to eat lunch and refused to take his neurontin po hussain mancini
--- NOTE | 2019-12-12 14:30 | NUR ---
NURSE NOTES Dr Bullard made aware regarding k level awaiting for his call
--- NOTE | 2019-12-12 14:45 | Infectious Diseases Prog Note ---
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 Plan: -Continue monitor off abx -12/10SP Cefepime #6 -12/08 SP IV Vancomycin #4 -f/u cx -Monitor CBC/CMP, temperatures -COVID 19 precautions -clarify goals of care -aspiration precautions -inflamatory markers Thank you for consulting [facility]. Will continue to follow along with you. Discussed with RN, Subjective Allergies: Coded Allergies: No Known Allergies (Unverified , 07/28/14) Subjective afebrile in ~24hrs at 1l NC no leukcoytosis Objective Vital Signs Last 24 Hour Vital Signs Date Time Temp Pulse Resp B/P (MAP) Pulse Ox O2 Delivery O2 Flow Rate FiO2 12/12/19 12:00 99.0 68 19 130/70 (90) 98 12/12/19 08:15 83 136/83 12/12/19 08:00 98.3 101 20 103/65 (78) 92 12/12/19 04:00 98.3 83 18 136/83 (100) 98 12/12/19 00:00 98.1 82 20 127/80 (96) 94 12/11/19 22:40 87 124/82 12/11/19 20:00 97.2 87 24 124/82 (96) 92 12/11/19 17:59 99.0 12/11/19 16:00 100.8 94 25 119/77 (91) 95 Height (Feet): 5 Height (Inches): 8.00 Weight (Pounds): 173 Objective not examined to limit COVID19 exposure Laboratory Tests Test 12/12/19 05:00 White Blood Count 8.2 K/UL (4.8-10.8) Red Blood Count 4.00 M/UL (4.70-6.10) L Hemoglobin 11.6 G/DL (14.2-18.0) L Hematocrit 33.9 % (42.0-52.0) L Mean Corpuscular Volume 85 FL (80-99) Mean Corpuscular Hemoglobin 29.1 PG (27.0-31.0) Mean Corpuscular Hemoglobin Concent 34.3 G/DL (32.0-36.0) Red Cell Distribution Width 10.8 % (11.6-14.8) L Platelet Count 147 K/UL (150-450) L Mean Platelet Volume 7.8 FL (6.5-10.1) Neutrophils (%) (Auto) 75.9 % (45.0-75.0) H Lymphocytes (%) (Auto) 13.6 % (20.0-45.0) L Monocytes (%) (Auto) 6.8 % (1.0-10.0) Eosinophils (%) (Auto) 3.1 % (0.0-3.0) H Basophils (%) (Auto) 0.6 % (0.0-2.0) Sodium Level 139 MMOL/L (136-145) Potassium Level 3.3 MMOL/L (3.5-5.1) L Chloride Level 103 MMOL/L (98-107) Carbon Dioxide Level 28 MMOL/L (21-32) Anion Gap 8 mmol/L (5-15) Blood Urea Nitrogen 15 mg/dL (7-18) Creatinine 0.9 MG/DL (0.55-1.30) Estimat Glomerular Filtration Rate > 60 mL/min (>60) Glucose Level 142 MG/DL (74-106) H Uric Acid 2.8 MG/DL (2.6-7.2) Calcium Level 8.6 MG/DL (8.5-10.1) Phosphorus Level 2.1 MG/DL (2.5-4.9) L Magnesium Level 1.7 MG/DL (1.8-2.4) L Total Bilirubin 0.5 MG/DL (0.2-1.0) Direct Bilirubin 0.1 MG/DL (0.0-0.3) Aspartate Amino Transf (AST/SGOT) 42 U/L (15-37) H Alanine Aminotransferase (ALT/SGPT) 35 U/L (12-78) Alkaline Phosphatase 55 U/L (46-116) C-Reactive Protein, Quantitative 28.6 mg/dL (0.00-0.90) H Total Protein 6.6 G/DL (6.4-8.2) Albumin 2.0 G/DL (3.4-5.0) L Current Medications Medications (Trade) Dose Ordered Sig/Wiley Route PRN Reason Start Time Stop Time Status Last Admin Dose Admin Acetaminophen (Tylenol) 650 mg Q6H PRN ORAL Temp >100.5 12/11/19 14:45 01/07/20 08:44 12/11/19 17:29 Carvedilol (Coreg) 3.125 mg EVERY 12 HOURS ORAL 12/11/19 21:00 01/10/20 20:59 12/12/19 08:15 Chlorhexidine Gluconate (Milagro-Hex 2%) 1 applic DAILY@2000 TOPIC 12/11/19 20:00 03/06/20 19:59 12/11/19 22:44 Gabapentin (Neurontin) 300 mg Q8HR ORAL 12/11/19 22:00 01/06/20 00:00 12/12/19 05:31 Levetiracetam (Keppra) 1,000 mg Q12HR ORAL 12/11/19 21:00 01/06/20 00:00 12/12/19 08:15 Lorazepam (Ativan 2mg/ml 1ml) 1 mg Q6H PRN IV For Anxiety 12/11/19 14:30 12/18/19 14:29 Memantine (Namenda) 5 mg DAILY ORAL 12/12/19 09:00 01/06/20 16:59 12/12/19 08:16 Sodium Chloride 1,000 ml @ 75 mls/hr [id number] IV 12/11/19 14:15 01/05/20 22:59 12/12/19 04:38 Sujatha Sanchez M.D. Dec 12, 2019 14:45
--- NOTE | 2019-12-12 14:48 | Cardiac Electrophysiology PN ---
Assessment/Plan Assessment/Plan 1. S/P Shock due to cardiomyopathy EF 40 and sepsis. His BNP is 736. On iv Abx by Dr. Sanchez 2. Cardiomyopathy EF 40%. On Coreg 3.125 bid 3. Status post right-sided MERT ICD. 4. History of hypertension 5. History of CVA with residual weakness. 6. COVID-19 PNA off the vent DW RN Subjective Subjective Covid is positive. Transferred to [facility] Objective Last 24 Hour Vital Signs Date Time Temp Pulse Resp B/P (MAP) Pulse Ox O2 Delivery O2 Flow Rate FiO2 12/12/19 12:00 99.0 68 19 130/70 (90) 98 12/12/19 08:15 83 136/83 12/12/19 08:00 98.3 101 20 103/65 (78) 92 12/12/19 04:00 98.3 83 18 136/83 (100) 98 12/12/19 00:00 98.1 82 20 127/80 (96) 94 12/11/19 22:40 87 124/82 12/11/19 20:00 97.2 87 24 124/82 (96) 92 12/11/19 17:59 99.0 12/11/19 16:00 100.8 94 25 119/77 (91) 95 Intake and Output 12/11/19 12/12/19 19:00 07:00 Intake Total 920 ml 600 ml Output Total 290 ml Balance 630 ml 600 ml Intake Oral 60 ml IV Total 860 ml 600 ml Output Urine Total 290 ml Laboratory Tests Test 12/12/19 05:00 White Blood Count 8.2 K/UL (4.8-10.8) Red Blood Count 4.00 M/UL (4.70-6.10) L Hemoglobin 11.6 G/DL (14.2-18.0) L Hematocrit 33.9 % (42.0-52.0) L Mean Corpuscular Volume 85 FL (80-99) Mean Corpuscular Hemoglobin 29.1 PG (27.0-31.0) Mean Corpuscular Hemoglobin Concent 34.3 G/DL (32.0-36.0) Red Cell Distribution Width 10.8 % (11.6-14.8) L Platelet Count 147 K/UL (150-450) L Mean Platelet Volume 7.8 FL (6.5-10.1) Neutrophils (%) (Auto) 75.9 % (45.0-75.0) H Lymphocytes (%) (Auto) 13.6 % (20.0-45.0) L Monocytes (%) (Auto) 6.8 % (1.0-10.0) Eosinophils (%) (Auto) 3.1 % (0.0-3.0) H Basophils (%) (Auto) 0.6 % (0.0-2.0) Sodium Level 139 MMOL/L (136-145) Potassium Level 3.3 MMOL/L (3.5-5.1) L Chloride Level 103 MMOL/L (98-107) Carbon Dioxide Level 28 MMOL/L (21-32) Anion Gap 8 mmol/L (5-15) Blood Urea Nitrogen 15 mg/dL (7-18) Creatinine 0.9 MG/DL (0.55-1.30) Estimat Glomerular Filtration Rate > 60 mL/min (>60) Glucose Level 142 MG/DL (74-106) H Uric Acid 2.8 MG/DL (2.6-7.2) Calcium Level 8.6 MG/DL (8.5-10.1) Phosphorus Level 2.1 MG/DL (2.5-4.9) L Magnesium Level 1.7 MG/DL (1.8-2.4) L Total Bilirubin 0.5 MG/DL (0.2-1.0) Direct Bilirubin 0.1 MG/DL (0.0-0.3) Aspartate Amino Transf (AST/SGOT) 42 U/L (15-37) H Alanine Aminotransferase (ALT/SGPT) 35 U/L (12-78) Alkaline Phosphatase 55 U/L (46-116) C-Reactive Protein, Quantitative 28.6 mg/dL (0.00-0.90) H Total Protein 6.6 G/DL (6.4-8.2) Albumin 2.0 G/DL (3.4-5.0) L Objective HEAD AND NECK: Mild JVD. LUNGS: Decreased breath sounds. CARDIOVASCULAR: Regular S1 and S2 with no gallop. ABDOMEN: Soft. EXTREMITIES: 1+ pitting edema. Defibrillator is in right subclavian. Shai Bullard MD Dec 12, 2019 14:48
[2019-12-12 16:00] VITALS: BP 132/75
--- NOTE | 2019-12-12 19:06 | NUR ---
HAND-OFF: Report given to BARBARA Naylor accordingly barbara mancini.
--- NOTE | 2019-12-12 19:45 | Progress Note ---
DATE: 12/12/2019 SUBJECTIVE: This is a 69-year-old patient with altered mental status, hypertension, and sepsis. Medical problems for this patient, he has some confusion, some disorganized thought process, decline in cognition below his baseline, pyelonephritis, sepsis, anemia, rule out COVID-19 infection, altered mental status, decline in cognition below baseline that is why his attending has requested daily psychiatric consultation. MENTAL STATUS EXAMINATION: This is a 69-year-old male. Appearance is disheveled. Attitude, irritable and agitated. Affect, guarded and restricted. Intellect poor. Mood, depressed and anxious. Motor activity, psychomotor agitation. Insight and judgment is poor. DIAGNOSIS: Major depressive disorder, mild, recurrent with psychotic features rule out dementia with psychosis. PLAN: Namenda 5 mg daily, Ativan 1 mg IV every 6 hours p.r.n. anxiety and agitation, Neurontin 300 mg p.o. every 8 hours. A 20 minutes of reality-based supportive psychotherapy. A 20-minutes of insight-oriented psychotherapy to help him understand his current physical and mental illness to help him have better impulse control and better behavior on the unit. Chart reviewed and discussed with staff. Seen and assessed at bedside. Mirna Adkins M.D. DR: Blake JOB#: [id number] CC:
[2019-12-12 20:00] VITALS: BP 136/83
--- NOTE | 2019-12-12 20:20 | NUR ---
NURSE NOTES: Received patient awake, non-verbal, no SOB, resting in bed. Kept clean and dry.
[2019-12-12] MEDS: Dyna-Hex 2% Top Sol 2oz TOPIC SCH (21:19)
[2019-12-13] VITALS (7 sets, daily range): BP systolic 126–152; BP diastolic 83–100
[2019-12-13 07:15] LABS: BASOPHILS % (AUTO) 0.3 % (0.0-2.0); EOSINOPHILS % (AUTO) 2.7 % (0.0-3.0); HEMATOCRIT 26.2 % (42.0-52.0); MEAN CORPUSCULAR VOLUME 86 FL (80-99); MONOCYTES % (AUTO) 8.8 % (1.0-10.0); NEUTROPHILS % (AUTO) 76.3 % (45.0-75.0); PLATELET COUNT 139 K/UL (150-450); RED BLOOD COUNT 3.06 M/UL (4.70-6.10); RED CELL DISTRIBUTION WIDTH 10.9 % (11.6-14.8); WHITE BLOOD COUNT 7.8 K/UL (4.8-10.8)
[2019-12-13 07:19] LABS: ANION GAP 12 mmol/L (5-15); BLOOD UREA NITROGEN 12 mg/dL (7-18); CALCIUM 6.2 MG/DL (8.5-10.1); CARBON DIOXIDE 20 MMOL/L (21-32); CHLORIDE 116 MMOL/L (98-107); CREATININE 0.5 MG/DL (0.55-1.30); SODIUM 149 MMOL/L (136-145)
--- NOTE | 2019-12-13 07:26 | NUR ---
HAND-OFF: Report given to Lisset Obrien RN.
--- NOTE | 2019-12-13 07:35 | NUR ---
NURSE NOTES Received patient resting comfortably in bed, patient awake, oriented x1 confused ,no sign of distress, denies pain or discomfort,O2 at 2 LPM via NC, on going IVF patent and infusing well via TLC , [place] cath to gravity, on fall precaution observed and maintained, plan of care was discussed verbalized understanding , 4, P's in progress call light w/n waqas mancini RN
[2019-12-13 08:24] LABS: POTASSIUM 2.4 MMOL/L (3.5-5.1)
--- NOTE | 2019-12-13 08:25 | NUR ---
NURSE NOTES: Emily for the lab called and stated patient has potassium of 2.4. Left message for MD Novoa.
[2019-12-13] MEDS: Memantine 5 MG TAB ORAL SCH (08:51)
--- NOTE | 2019-12-13 09:11 | General Progress Note ---
Assessment/Plan Problem List: (1) Suspected COVID-19 virus infection ICD Codes: Z20.828 - Contact with and (suspected) exposure to other viral communicable diseases SNOMED: 992113833 (2) Anemia ICD Codes: D64.9 - Anemia, unspecified SNOMED: 350148696 (3) Weak ICD Codes: R53.1 - Weakness SNOMED: 63330325 (4) COPD (chronic obstructive pulmonary disease) ICD Codes: J44.9 - Chronic obstructive pulmonary disease, unspecified SNOMED: 10698650 (5) Diabetes ICD Codes: E11.9 - Type 2 diabetes mellitus without complications SNOMED: 83447303 (6) Epileptic seizure, generalized ICD Codes: G40.309 - Generalized idiopathic epilepsy and epileptic syndromes, not intractable, without status epilepticus SNOMED: 61057698 (7) Altered mental status ICD Codes: R41.82 - Altered mental status, unspecified SNOMED: 928418493 Qualifiers: Qualified Codes: R41.82 - Altered mental status, unspecified (8) Hypotension ICD Codes: I95.9 - Hypotension, unspecified SNOMED: 69312365 Qualifiers: Qualified Codes: I95.9 - Hypotension, unspecified Status: unchanged Assessment/Plan: o2 pulm tx abx pt diet cbc bmp am Subjective Constitutional: Reports: weakness Allergies: Coded Allergies: No Known Allergies (Unverified , 07/28/14) All Systems: reviewed and negative except above Subjective sleepy calm in bed Objective Last 24 Hour Vital Signs Date Time Temp Pulse Resp B/P (MAP) Pulse Ox O2 Delivery O2 Flow Rate FiO2 12/13/19 08:51 91 144/83 12/13/19 04:09 98.1 91 22 144/83 (103) 96 12/13/19 00:00 97.9 89 22 137/85 (102) 90 12/12/19 21:20 87 136/83 12/12/19 20:00 99.3 87 22 136/83 (100) 90 12/12/19 16:00 98.9 73 20 132/75 (94) 98 12/12/19 12:00 99.0 68 19 130/70 (90) 98 Intake and Output 12/12/19 12/13/19 19:00 07:00 Intake Total 870 ml 700 ml Balance 870 ml 700 ml IV Total 870 ml 700 ml Laboratory Tests 12/13/19 05:45: White Blood Count 7.8, Red Blood Count 3.06L, Hemoglobin 9.0L, Hematocrit 26.2L , Mean Corpuscular Volume 86, Mean Corpuscular Hemoglobin 29.4, Mean Corpuscular Hemoglobin Concent 34.3, Red Cell Distribution Width 10.9L, Platelet Count 139L, Mean Platelet Volume 8.3, Neutrophils (%) (Auto) 76.3H, Lymphocytes (%) (Auto) 12.0L, Monocytes (%) (Auto) 8.8, Eosinophils (%) (Auto) 2.7, Basophils (%) (Auto) 0.3, Sodium Level 149H, Potassium Level 2.4*L, Chloride Level 116H, Carbon Dioxide Level 20L, Anion Gap 12, Blood Urea Nitrogen 12, Creatinine 0.5L, Estimat Glomerular Filtration Rate > 60, Glucose Level 111H, Calcium Level 6.2#L Height (Feet): 5 Height (Inches): 8.00 Weight (Pounds): 173 General Appearance: lethargic EENT: normal ENT inspection Neck: normal alignment Cardiovascular: normal rate, regular rhythm Respiratory/Chest: no respiratory distress, no accessory muscle use Extremities: normal inspection Skin: normal pigmentation Tee Novoa DO December 13, 2019 09:11
--- NOTE | 2019-12-13 09:43 | Consultation ---
Consult Note Consult Note I am asked to evaluate the patient at the request of Dr. Novoa for electrolyte abnormalities Day 7 of hospitalization for this patient The data and notes in EMR reviewed Patient seen and examined 69-year-old male history of hypertension, cardiomyopathy AICD presents with hypotension, altered mental status no known aggravating relieving factors severity is severe, constant started today patient was more altered, patient presents [facility] via EMS No Known Allergies (Unverified , 07/28/14) Contact w/high risk pt: Yes for COVID-19 Hx Cardiac Problems: Yes Hx Hypertension: Yes Hx Cerebrovascular Accident: Yes - X 3 Hx Seizures: Yes Hx Weakness: Yes - RT SIDED WEAKNESS Assessment/Plan Patient's current problem from renal standpoint of view is hypokalemia His other conditions: Patient presented with acute renal failure however it is now resolved Patient presented with septic shock was on pressors however now resolved Sepsis leukocytosis improving Patient has COVID-19 pneumonia Hypertension Cardiomyopathy status post AICD Previous CVA with right residual weakness Seizure disorders Plan: Patient currently on normal saline 75 cc an hour which I will stop at this time Will start patient on oral and IV potassium We will continue to monitor electrolytes Continue per consultants Per orders Ed Vega MD December 13, 2019 09:43
[2019-12-13] MEDS ORDERED: Tubing IV Secondary IV ONE (10:15)
[2019-12-13] MEDS ORDERED: NS 275ml ONE (10:15)
--- NOTE | 2019-12-13 10:26 | NUR ---
*-*DISCHARGE PLANNING*-* PATIENT HAS BEEN REFERRED TO: [facility] P: [phone] F: [phone] ~~~~~~~~~~~~~~~~~CLINICALS FAXED~~~~~~~~~~~~~~~~
[2019-12-13] MEDS ORDERED: Potassium Chloride 40 MEQ in D5W 500ml 550 ML IVPB SCH (11:00)
--- NOTE | 2019-12-13 11:08 | NUR ---
*-*DISCHARGE PLANNING*-* PATIENT HAS BEEN REFERRED TO: [facility] P: [phone] F: [phone] [facility], WHO STATED THEY ARE NOT ACCEPTING ANY PATIENTS FROM [facility] AND COID19 POSITIVE PATIENTS. Addendum: 12/16/19 at 0923 by KAREEM KAUFMAN CM *-*DISCHARGE PLANNING*-* PATIENT HAS BEEN REFERRED TO: [facility] P: [phone] F: [phone] [facility] WHO STATED THEY ARE NOT ACCEPTING ANY PATIENTS FROM [facility] AND COVID19 POSITIVE PATIENTS.
--- NOTE | 2019-12-13 11:46 | Pulmonology Progress Note ---
Assessment/Plan Assessment/Plan IMPRESSION: 1. Cardiomyopathy. 2. Hypotension. 3. Left lung pneumonia. 4. shelter resident. 5. Positive COVID-19. DISCUSSION: 1. Continue isolation 2. Continue current medications. 3. Off pressors. 4. Oxygen. 5. Pulmonary hygiene. 6. Broad-spectrum antibiotics. 7. I will follow. 8. Transfer to med-surg Mike Montalvo M.D. Subjective Interval Events: Looking better; off levophed; afebrile Constitutional: Reports: no symptoms Respiratory: Reports: no symptoms Cardiovascular: Reports: no symptoms Gastrointestinal/Abdominal: Reports: no symptoms Genitourinary: Reports: no symptoms Neurologic: Reports: no symptoms Allergies: Coded Allergies: No Known Allergies (Unverified , 07/28/14) All Systems: reviewed and negative except above Objective Last 24 Hour Vital Signs Date Time Temp Pulse Resp B/P (MAP) Pulse Ox O2 Delivery O2 Flow Rate FiO2 12/13/19 08:51 91 144/83 12/13/19 08:00 98.1 93 19 152/100 (117) 93 12/13/19 04:09 98.1 91 22 144/83 (103) 96 12/13/19 00:00 97.9 89 22 137/85 (102) 90 12/12/19 21:20 87 136/83 12/12/19 20:00 99.3 87 22 136/83 (100) 90 12/12/19 16:00 98.9 73 20 132/75 (94) 98 12/12/19 12:00 99.0 68 19 130/70 (90) 98 Intake and Output 12/12/19 12/13/19 19:00 07:00 Intake Total 870 ml 700 ml Balance 870 ml 700 ml IV Total 870 ml 700 ml General Appearance: no acute distress HEENT: normocephalic Respiratory/Chest: chest wall non-tender, lungs clear Cardiovascular: normal peripheral pulses Abdomen: normal bowel sounds Laboratory Tests 12/13/19 05:45: White Blood Count 7.8, Red Blood Count 3.06L, Hemoglobin 9.0L, Hematocrit 26.2L , Mean Corpuscular Volume 86, Mean Corpuscular Hemoglobin 29.4, Mean Corpuscular Hemoglobin Concent 34.3, Red Cell Distribution Width 10.9L, Platelet Count 139L, Mean Platelet Volume 8.3, Neutrophils (%) (Auto) 76.3H, Lymphocytes (%) (Auto) 12.0L, Monocytes (%) (Auto) 8.8, Eosinophils (%) (Auto) 2.7, Basophils (%) (Auto) 0.3, Sodium Level 149H, Potassium Level 2.4*L, Chloride Level 116H, Carbon Dioxide Level 20L, Anion Gap 12, Blood Urea Nitrogen 12, Creatinine 0.5L, Estimat Glomerular Filtration Rate > 60, Glucose Level 111H, Calcium Level 6.2#L Current Medications Medications (Trade) Dose Ordered Sig/Wiley Route PRN Reason Start Time Stop Time Status Last Admin Dose Admin Acetaminophen (Tylenol) 650 mg Q6H PRN ORAL Temp >100.5 12/11/19 14:45 01/07/20 08:44 12/11/19 17:29 Carvedilol (Coreg) 3.125 mg EVERY 12 HOURS ORAL 12/11/19 21:00 01/10/20 20:59 12/13/19 08:51 Chlorhexidine Gluconate (Milagro-Hex 2%) 1 applic DAILY@2000 TOPIC 12/11/19 20:00 03/06/20 19:59 12/12/19 21:19 Gabapentin (Neurontin) 300 mg Q8HR ORAL 12/11/19 22:00 01/06/20 00:00 12/13/19 05:16 Levetiracetam (Keppra) 1,000 mg Q12HR ORAL 12/11/19 21:00 01/06/20 00:00 12/13/19 08:50 Lorazepam (Ativan 2mg/ml 1ml) 1 mg Q6H PRN IV For Anxiety 12/11/19 14:30 12/18/19 14:29 Memantine (Namenda) 5 mg DAILY ORAL 12/12/19 09:00 01/06/20 16:59 12/13/19 08:51 Potassium Chloride 40 meq/ Dextrose 570 ml @ 125 mls/hr ONCE IVPB 12/13/19 11:00 12/13/19 12:00 12/13/19 11:14 Potassium Chloride (K-Dur) 20 meq TWICE A DAY ORAL 12/13/19 09:00 03/12/20 08:59 12/13/19 11:20 Mike Montalvo MD December 13, 2019 11:46
--- NOTE | 2019-12-13 12:01 | Cardiac Electrophysiology PN ---
Assessment/Plan Assessment/Plan 1. S/P Shock due to cardiomyopathy EF 40 and sepsis. His BNP is 736. On iv Abx by Dr. Sanchez 2. Cardiomyopathy EF 40%. On Coreg 3.125 bid 3. Status post right-sided MERT ICD. 4. History of hypertension 5. History of CVA with residual weakness. 6. COVID-19 PNA off the vent DW RN Subjective Subjective Covid is positive. No new events on Med Surge Objective Last 24 Hour Vital Signs Date Time Temp Pulse Resp B/P (MAP) Pulse Ox O2 Delivery O2 Flow Rate FiO2 12/13/19 08:51 91 144/83 12/13/19 08:00 98.1 93 19 152/100 (117) 93 12/13/19 04:09 98.1 91 22 144/83 (103) 96 12/13/19 00:00 97.9 89 22 137/85 (102) 90 12/12/19 21:20 87 136/83 12/12/19 20:00 99.3 87 22 136/83 (100) 90 12/12/19 16:00 98.9 73 20 132/75 (94) 98 Intake and Output 12/12/19 12/13/19 19:00 07:00 Intake Total 870 ml 700 ml Balance 870 ml 700 ml IV Total 870 ml 700 ml Laboratory Tests Test 12/13/19 05:45 White Blood Count 7.8 K/UL (4.8-10.8) Red Blood Count 3.06 M/UL (4.70-6.10) L Hemoglobin 9.0 G/DL (14.2-18.0) L Hematocrit 26.2 % (42.0-52.0) L Mean Corpuscular Volume 86 FL (80-99) Mean Corpuscular Hemoglobin 29.4 PG (27.0-31.0) Mean Corpuscular Hemoglobin Concent 34.3 G/DL (32.0-36.0) Red Cell Distribution Width 10.9 % (11.6-14.8) L Platelet Count 139 K/UL (150-450) L Mean Platelet Volume 8.3 FL (6.5-10.1) Neutrophils (%) (Auto) 76.3 % (45.0-75.0) H Lymphocytes (%) (Auto) 12.0 % (20.0-45.0) L Monocytes (%) (Auto) 8.8 % (1.0-10.0) Eosinophils (%) (Auto) 2.7 % (0.0-3.0) Basophils (%) (Auto) 0.3 % (0.0-2.0) Sodium Level 149 MMOL/L (136-145) H Potassium Level 2.4 MMOL/L (3.5-5.1) *L Chloride Level 116 MMOL/L (98-107) H Carbon Dioxide Level 20 MMOL/L (21-32) L Anion Gap 12 mmol/L (5-15) Blood Urea Nitrogen 12 mg/dL (7-18) Creatinine 0.5 MG/DL (0.55-1.30) L Estimat Glomerular Filtration Rate > 60 mL/min (>60) Glucose Level 111 MG/DL (74-106) H Calcium Level 6.2 MG/DL (8.5-10.1) #L Objective HEAD AND NECK: Mild JVD. LUNGS: Decreased breath sounds. CARDIOVASCULAR: Regular S1 and S2 with no gallop. ABDOMEN: Soft. EXTREMITIES: 1+ pitting edema. Defibrillator is in right subclavian. Shai Bullard MD December 13, 2019 12:01
--- NOTE | 2019-12-13 12:48 | NUR ---
RD ASSESSMENT & RECOMMENDATIONS SEE CARE ACTIVITY FOR COMPLETE ASSESSMENT DAILY ESTIMATED NEEDS: Needs based on Cardiac 74kg abw 25-30 kcals/kg 7645-9936 total kcals 1-1.2 g protein/kg 74-89 g total protein 25-30 mL/kg 7919-6545 total fluid mLs NUTRITION DIAGNOSIS: Altered nutrition related lab values r/t clinical status as evidenced by elev BG (146 175), febrile (tmax 101.5) CURRENT DIET: CLD PO DIET RECOMMENDATIONS: Advance as able to Low Na / texture per [facility] ADDITIONAL RECOMMENDATIONS: 1) Check A1C -> pt w/elev BG (146-175) 2) Add ensure Clear w/ CLD-> advance diet as able 3) Monitor ICU status, respiratory status-> now med surg 4) Obtain a calibrated bed scale wt 5) Rec [facility] eval prior to advancing diet
--- NOTE | 2019-12-13 16:15 | Progress Note ---
DATE: 12/13/2019 SUBJECTIVE: This is a 69-year-old patient with altered mental status. This patient continues to have some confusion, disorganized thought process. He pyelonephritis, COVID-19, causing him to have altered mental status, increased mood lability, worsened by stress of his medical illness. DIAGNOSIS: Major depressive disorder, mild, recurrent with psychotic features, rule out dementia with psychosis. PLAN: Treat him with Namenda 5 daily, Ativan 1 every 6 hours p.r.n. anxiety and agitation, Neurontin 300 mg every 8 hours. A 20 minutes of reality-based supportive psychotherapy. A 20 minutes of insight-oriented psychotherapy to help him understand his current physical and psychiatric condition to help him have better impulse control and better behavior on the unit. Chart reviewed and discussed with staff. Seen and assessed . Mirna Adkins M.D. DR: MACK JOB#: [id number] CC:
--- NOTE | 2019-12-13 16:50 | NUR ---
CASE MANAGEMENT: REVIEW SI: SEPSIS . COVID-19 PNA. 98.1 93 22 152/100 92% 1L NC H/H 9.0/26.2 NA 149 K+ 2.4 CA 6.2 IS;KCL IV ONCE IVF NS BOLUS K-DUR PO BID COREG PO Q12 HRS KEPPRA PO Q12 HRS ROS HEX TOP QD MED SURG STATUS DCP;FROM [facility]
--- NOTE | 2019-12-13 19:21 | NUR ---
HAND-OFF: Report given to BARBARA BORJA Patient resting comfortably no sign of distress, barbara mancini
--- NOTE | 2019-12-13 19:45 | NUR ---
NURSE NOTES: Received patient awake, non-verbal, vital signs: BP-142/84, HR-99, RR-40, O2 sat -82% at 2L/NC. Rapid response team called and patient placed on non-rebreather mask which improved O2 sat to 98%. ABG was ordered,Dr Gipson notified. At 2020 PM, Vital signs: BP-132/87, HR-98, RR-36, O2 sat-94% with Venturi mask on.
[2019-12-13] MEDS: Dyna-Hex 2% Top Sol 2oz TOPIC SCH (21:14)
[2019-12-14 00:08] VITALS: BP 138/94
[2019-12-14 04:00] VITALS: BP 137/85
--- NOTE | 2019-12-14 07:24 | NUR ---
HAND-OFF: Report given to BARBARA Chirinos.
--- NOTE | 2019-12-14 07:48 | NUR ---
NURSE NOTES: Report received from Cyndy JIMENEZ. Patient seen on rounds, AxOx1, on venturi mask @30%, sats 88-91%, mild SOB noted. Right femoral PICC line patent and intact. Mosqueda catheter secure and draining well. Dressings on sacrum intact. Bed low and locked, siderails up x2, zone alarms on 1, call light within reach, will continue to monitor.
[2019-12-14 07:53] LABS: ALANINE AMINOTRANSFERASE 20 U/L (12-78); ALBUMIN 1.9 G/DL (3.4-5.0); ALBUMIN/GLOBULIN RATIO 0.5 (1.0-2.7); ALKALINE PHOSPHATASE 52 U/L (46-116); ANION GAP 10 mmol/L (5-15); ASPARTATE AMINO TRANSFERASE 26 U/L (15-37); BILIRUBIN,TOTAL 0.7 MG/DL (0.2-1.0); BLOOD UREA NITROGEN 13 mg/dL (7-18); CALCIUM 8.1 MG/DL (8.5-10.1); CARBON DIOXIDE 25 MMOL/L (21-32); CHLORIDE 107 MMOL/L (98-107); CREATININE 0.7 MG/DL (0.55-1.30); GAMMA GLUTAMYL TRANSPEPTIDASE 42 U/L (5-85); PHOSPHORUS 2.1 MG/DL (2.5-4.9); POTASSIUM 3.3 MMOL/L (3.5-5.1); SODIUM 142 MMOL/L (136-145)
[2019-12-14 08:00] VITALS: BP 130/79
[2019-12-14 08:20] LABS: BASOPHILS % (AUTO) 0.4 % (0.0-2.0); EOSINOPHILS % (AUTO) 1.7 % (0.0-3.0); HEMATOCRIT 31.7 % (42.0-52.0); HEMOGLOBIN 10.7 G/DL (14.2-18.0); MEAN CORPUSCULAR VOLUME 85 FL (80-99); MONOCYTES % (AUTO) 8.3 % (1.0-10.0); NEUTROPHILS % (AUTO) 79.6 % (45.0-75.0); PLATELET COUNT 156 K/UL (150-450); RED BLOOD COUNT 3.71 M/UL (4.70-6.10); WHITE BLOOD COUNT 11.6 K/UL (4.8-10.8)
--- NOTE | 2019-12-14 09:00 | Pulmonology Progress Note ---
Assessment/Plan Assessment/Plan IMPRESSION: 1. Cardiomyopathy. 2. Hypotension. 3. Left lung pneumonia. 4. [facility] resident. 5. Positive COVID-19. DISCUSSION: 1. Continue isolation 2. Continue current medications. 3. Off pressors. 4. Oxygen. Requirements increased last 24 hours 5. Pulmonary hygiene. 6. Broad-spectrum antibiotics. 7. I will follow. 8. Transferred to med-surg 9. Will check CXR an labs Mike Montalvo M.D. Subjective Interval Events: Tachypnic yesterday; afebrile Constitutional: Reports: no symptoms Respiratory: Reports: no symptoms Cardiovascular: Reports: no symptoms Gastrointestinal/Abdominal: Reports: no symptoms Genitourinary: Reports: no symptoms Neurologic: Reports: no symptoms Allergies: Coded Allergies: No Known Allergies (Unverified , 07/28/14) All Systems: reviewed and negative except above Objective Last 24 Hour Vital Signs Date Time Temp Pulse Resp B/P (MAP) Pulse Ox O2 Delivery O2 Flow Rate FiO2 12/14/19 08:00 98.8 93 22 130/79 (96) 93 12/14/19 04:00 99.1 89 30 137/85 (102) 90 12/14/19 00:08 99.3 92 40 138/94 (109) 87 12/13/19 22:17 99 40 82 12/13/19 21:15 99 126/89 12/13/19 20:00 98.7 99 40 126/89 (101) 81 12/13/19 16:08 97.7 90 19 136/90 (105) 92 12/13/19 12:00 97.7 87 18 145/89 (107) 93 Intake and Output 12/13/19 12/14/19 19:00 07:00 Intake Total 570 ml 500 ml Balance 570 ml 500 ml IV Total 570 ml 500 ml General Appearance: no acute distress HEENT: normocephalic Respiratory/Chest: chest wall non-tender, lungs clear Cardiovascular: normal peripheral pulses Abdomen: normal bowel sounds Laboratory Tests 12/13/19 22:03: Arterial Blood pH 7.523H, Arterial Blood Partial Pressure CO2 24.6*L, Arterial Blood Partial Pressure O2 65.1L, Arterial Blood HCO3 19.8L, Arterial Blood Oxygen Saturation 93.3L, Arterial Blood Base Excess -1.6, Devyn Test Positive 12/14/19 06:00: White Blood Count 11.6H, Red Blood Count 3.71L, Hemoglobin 10.7L, Hematocrit 31.7L, Mean Corpuscular Volume 85, Mean Corpuscular Hemoglobin 28.9, Mean Corpuscular Hemoglobin Concent 33.9, Red Cell Distribution Width 11.0L, Platelet Count 156, Mean Platelet Volume 6.3L, Neutrophils (%) (Auto) 79.6H, Lymphocytes (%) (Auto) 10.0L, Monocytes (%) (Auto) 8.3, Eosinophils (%) (Auto) 1.7, Basophils (%) (Auto) 0.4, Sodium Level 142, Potassium Level 3.3L, Chloride Level 107, Carbon Dioxide Level 25, Anion Gap 10, Blood Urea Nitrogen 13, Creatinine 0.7, Estimat Glomerular Filtration Rate > 60, Glucose Level 147H, Hemoglobin A1c [Pending], Uric Acid 3.1, Calcium Level 8.1#L, Phosphorus Level 2.1L, Magnesium Level 1.5L, Total Bilirubin 0.7, Gamma Glutamyl Transpeptidase 42, Aspartate Amino Transf (AST/SGOT) 26, Alanine Aminotransferase (ALT/SGPT) 20 , Alkaline Phosphatase 52, C-Reactive Protein, Quantitative 26.0H, Pro-B-Type Natriuretic Peptide 5368H, Total Protein 6.0L, Albumin 1.9L, Globulin 4.1, Albumin/Globulin Ratio 0.5L, Thyroid Stimulating Hormone (TSH) 0.472 Current Medications Medications (Trade) Dose Ordered Sig/Wiley Route PRN Reason Start Time Stop Time Status Last Admin Dose Admin Acetaminophen (Tylenol) 650 mg Q6H PRN ORAL Temp >100.5 12/11/19 14:45 01/07/20 08:44 12/11/19 17:29 Carvedilol (Coreg) 3.125 mg EVERY 12 HOURS ORAL 12/11/19 21:00 01/10/20 20:59 12/13/19 21:15 Chlorhexidine Gluconate (Milagro-Hex 2%) 1 applic DAILY@1999 TOPIC 12/11/19 20:00 03/06/20 19:59 12/13/19 21:14 Gabapentin (Neurontin) 300 mg Q8HR ORAL 12/11/19 22:00 01/06/20 00:00 12/14/19 05:00 Levetiracetam (Keppra) 1,000 mg Q12HR ORAL 12/11/19 21:00 01/06/20 00:00 12/13/19 21:15 Lorazepam (Ativan 2mg/ml 1ml) 1 mg Q6H PRN IV For Anxiety 12/11/19 14:30 12/18/19 14:29 Memantine (Namenda) 5 mg DAILY ORAL 12/12/19 09:00 01/06/20 16:59 12/13/19 08:51 Potassium Chloride (K-Dur) 20 meq TWICE A DAY ORAL 12/13/19 09:00 03/12/20 08:59 12/13/19 17:29 Mike Montalvo MD December 14, 2019 09:00
--- NOTE | 2019-12-14 09:03 | General Progress Note ---
Assessment/Plan Problem List: (1) Suspected COVID-19 virus infection ICD Codes: Z20.828 - Contact with and (suspected) exposure to other viral communicable diseases SNOMED: 682444298 (2) Anemia ICD Codes: D64.9 - Anemia, unspecified SNOMED: 271263682 (3) Weak ICD Codes: R53.1 - Weakness SNOMED: 99197939 (4) COPD (chronic obstructive pulmonary disease) ICD Codes: J44.9 - Chronic obstructive pulmonary disease, unspecified SNOMED: 14680316 (5) Diabetes ICD Codes: E11.9 - Type 2 diabetes mellitus without complications SNOMED: 39808656 (6) Epileptic seizure, generalized ICD Codes: G40.309 - Generalized idiopathic epilepsy and epileptic syndromes, not intractable, without status epilepticus SNOMED: 52979060 (7) Altered mental status ICD Codes: R41.82 - Altered mental status, unspecified SNOMED: 590447780 Qualifiers: Qualified Codes: R41.82 - Altered mental status, unspecified (8) Hypotension ICD Codes: I95.9 - Hypotension, unspecified SNOMED: 85780459 Qualifiers: Qualified Codes: I95.9 - Hypotension, unspecified Status: unchanged Assessment/Plan: o2 pulm tx abx pt diet cbc bmp am aru eval Subjective Constitutional: Reports: weakness Allergies: Coded Allergies: No Known Allergies (Unverified , 07/28/14) All Systems: reviewed and negative except above Subjective sleepy calm in bed Objective Last 24 Hour Vital Signs Date Time Temp Pulse Resp B/P (MAP) Pulse Ox O2 Delivery O2 Flow Rate FiO2 12/14/19 08:00 98.8 93 22 130/79 (96) 93 12/14/19 04:00 99.1 89 30 137/85 (102) 90 12/14/19 00:08 99.3 92 40 138/94 (109) 87 12/13/19 22:17 99 40 82 12/13/19 21:15 99 126/89 12/13/19 20:00 98.7 99 40 126/89 (101) 81 12/13/19 16:08 97.7 90 19 136/90 (105) 92 12/13/19 12:00 97.7 87 18 145/89 (107) 93 Intake and Output 12/13/19 12/14/19 19:00 07:00 Intake Total 570 ml 500 ml Balance 570 ml 500 ml IV Total 570 ml 500 ml Laboratory Tests 12/13/19 22:03: Arterial Blood pH 7.523H, Arterial Blood Partial Pressure CO2 24.6*L, Arterial Blood Partial Pressure O2 65.1L, Arterial Blood HCO3 19.8L, Arterial Blood Oxygen Saturation 93.3L, Arterial Blood Base Excess -1.6, Devyn Test Positive 12/14/19 06:00: White Blood Count 11.6H, Red Blood Count 3.71L, Hemoglobin 10.7L, Hematocrit 31.7L, Mean Corpuscular Volume 85, Mean Corpuscular Hemoglobin 28.9, Mean Corpuscular Hemoglobin Concent 33.9, Red Cell Distribution Width 11.0L, Platelet Count 156, Mean Platelet Volume 6.3L, Neutrophils (%) (Auto) 79.6H, Lymphocytes (%) (Auto) 10.0L, Monocytes (%) (Auto) 8.3, Eosinophils (%) (Auto) 1.7, Basophils (%) (Auto) 0.4, Sodium Level 142, Potassium Level 3.3L, Chloride Level 107, Carbon Dioxide Level 25, Anion Gap 10, Blood Urea Nitrogen 13, Creatinine 0.7, Estimat Glomerular Filtration Rate > 60, Glucose Level 147H, Hemoglobin A1c 7.4H, Uric Acid 3.1, Calcium Level 8.1#L, Phosphorus Level 2.1L, Magnesium Level 1.5L, Total Bilirubin 0.7, Gamma Glutamyl Transpeptidase 42, Aspartate Amino Transf (AST/SGOT) 26, Alanine Aminotransferase (ALT/SGPT) 20, Alkaline Phosphatase 52, C-Reactive Protein, Quantitative 26.0H, Pro-B-Type Natriuretic Peptide 5368H, Total Protein 6.0L, Albumin 1.9L, Globulin 4.1, Albumin/Globulin Ratio 0.5L, Thyroid Stimulating Hormone (TSH) 0.472 Height (Feet): 5 Height (Inches): 8.00 Weight (Pounds): 178 General Appearance: lethargic EENT: normal ENT inspection Neck: normal alignment Cardiovascular: normal rate, regular rhythm Respiratory/Chest: no respiratory distress, no accessory muscle use Extremities: normal inspection Skin: normal pigmentation Tee Novoa DO December 14, 2019 09:03
[2019-12-14] MEDS: Memantine 5 MG TAB ORAL SCH (09:42)
[2019-12-14] MEDS: Phospha 250 Neutral tab ORAL SCH ×3 (10:53→17:31)
[2019-12-14 12:00] VITALS: BP 134/82
--- NOTE | 2019-12-14 13:58 | Nephrology Progress Note ---
Assessment/Plan Problem List: (1) Electrolyte imbalance (2) Suspected COVID-19 virus infection (3) Hypotension (4) Sepsis Assessment Patient's current problem from renal standpoint of view is hypokalemia and other electrolyte imbalances His other conditions: Patient presented with acute renal failure however it is now resolved Patient presented with septic shock was on pressors however now resolved Sepsis leukocytosis improving Patient has COVID-19 pneumonia Hypertension Cardiomyopathy status post AICD Previous CVA with right residual weakness Seizure disorders Plan Stop IV fluids Start oral potassium, magnesium, phosphorus supplements We will continue to monitor electrolytes and chemistries Continue per consultants Per orders Subjective ROS Limited/Unobtainable: No Constitutional: Reports: malaise, weakness Objective Objective Last 24 Hour Vital Signs Date Time Temp Pulse Resp B/P (MAP) Pulse Ox O2 Delivery O2 Flow Rate FiO2 12/14/19 12:00 98.0 92 22 134/82 (99) 94 12/14/19 09:42 93 130/79 12/14/19 08:00 98.8 93 22 130/79 (96) 93 12/14/19 04:00 99.1 89 30 137/85 (102) 90 12/14/19 00:08 99.3 92 40 138/94 (109) 87 12/13/19 22:17 99 40 82 12/13/19 21:15 99 126/89 12/13/19 20:00 98.7 99 40 126/89 (101) 81 12/13/19 16:08 97.7 90 19 136/90 (105) 92 Intake and Output 12/13/19 12/14/19 19:00 07:00 Intake Total 570 ml 500 ml Balance 570 ml 500 ml IV Total 570 ml 500 ml Laboratory Tests 12/13/19 22:03: Arterial Blood pH 7.523H, Arterial Blood Partial Pressure CO2 24.6*L, Arterial Blood Partial Pressure O2 65.1L, Arterial Blood HCO3 19.8L, Arterial Blood Oxygen Saturation 93.3L, Arterial Blood Base Excess -1.6, Devyn Test Positive 12/14/19 06:00: White Blood Count 11.6H, Red Blood Count 3.71L, Hemoglobin 10.7L, Hematocrit 31.7L, Mean Corpuscular Volume 85, Mean Corpuscular Hemoglobin 28.9, Mean Corpuscular Hemoglobin Concent 33.9, Red Cell Distribution Width 11.0L, Platelet Count 156, Mean Platelet Volume 6.3L, Neutrophils (%) (Auto) 79.6H, Lymphocytes (%) (Auto) 10.0L, Monocytes (%) (Auto) 8.3, Eosinophils (%) (Auto) 1.7, Basophils (%) (Auto) 0.4, Sodium Level 142, Potassium Level 3.3L, Chloride Level 107, Carbon Dioxide Level 25, Anion Gap 10, Blood Urea Nitrogen 13, Creatinine 0.7, Estimat Glomerular Filtration Rate > 60, Glucose Level 147H, Hemoglobin A1c 7.4H, Uric Acid 3.1, Calcium Level 8.1#L, Phosphorus Level 2.1L, Magnesium Level 1.5L, Total Bilirubin 0.7, Gamma Glutamyl Transpeptidase 42, Aspartate Amino Transf (AST/SGOT) 26, Alanine Aminotransferase (ALT/SGPT) 20, Alkaline Phosphatase 52, C-Reactive Protein, Quantitative 26.0H, Pro-B-Type Natriuretic Peptide 5368H, Total Protein 6.0L, Albumin 1.9L, Globulin 4.1, Albumin/Globulin Ratio 0.5L, Thyroid Stimulating Hormone (TSH) 0.472 Height (Feet): 5 Height (Inches): 8.00 Weight (Pounds): 178 Ed Vega MD December 14, 2019 13:58
--- NOTE | 2019-12-14 14:32 | Cardiac Electrophysiology PN ---
Assessment/Plan Assessment/Plan 1. S/P Shock due to cardiomyopathy EF 40 and sepsis. His BNP is 736. On iv Abx by Dr. Sanchez 2. Cardiomyopathy EF 40%. On Coreg 3.125 bid 3. Status post right-sided MERT ICD. 4. History of hypertension 5. History of CVA with residual weakness. 6. COVID-19 PNA, off the vent DW RN Subjective Subjective Covid is positive. Had rapid response for low saturation and was placed on Venturi Mask. Objective Last 24 Hour Vital Signs Date Time Temp Pulse Resp B/P (MAP) Pulse Ox O2 Delivery O2 Flow Rate FiO2 12/14/19 12:00 98.0 92 22 134/82 (99) 94 12/14/19 09:42 93 130/79 12/14/19 08:00 98.8 93 22 130/79 (96) 93 12/14/19 04:00 99.1 89 30 137/85 (102) 90 12/14/19 00:08 99.3 92 40 138/94 (109) 87 12/13/19 22:17 99 40 82 12/13/19 21:15 99 126/89 12/13/19 20:00 98.7 99 40 126/89 (101) 81 12/13/19 16:08 97.7 90 19 136/90 (105) 92 Intake and Output 12/13/19 12/14/19 19:00 07:00 Intake Total 570 ml 500 ml Balance 570 ml 500 ml IV Total 570 ml 500 ml Laboratory Tests Test 12/13/19 22:03 12/14/19 06:00 Arterial Blood pH 7.523 (7.350-7.450) Arterial Blood Partial Pressure CO2 24.6 mmHg (35.0-45.0) *L Arterial Blood Partial Pressure O2 65.1 mmHg (75.0-100.0) L Arterial Blood HCO3 19.8 mmol/L (22.0-26.0) L Arterial Blood Oxygen Saturation 93.3 % (95-100) L Arterial Blood Base Excess -1.6 (-2-2) Devyn Test Positive White Blood Count 11.6 K/UL (4.8-10.8) H Red Blood Count 3.71 M/UL (4.70-6.10) L Hemoglobin 10.7 G/DL (14.2-18.0) L Hematocrit 31.7 % (42.0-52.0) L Mean Corpuscular Volume 85 FL (80-99) Mean Corpuscular Hemoglobin 28.9 PG (27.0-31.0) Mean Corpuscular Hemoglobin Concent 33.9 G/DL (32.0-36.0) Red Cell Distribution Width 11.0 % (11.6-14.8) L Platelet Count 156 K/UL (150-450) Mean Platelet Volume 6.3 FL (6.5-10.1) L Neutrophils (%) (Auto) 79.6 % (45.0-75.0) H Lymphocytes (%) (Auto) 10.0 % (20.0-45.0) L Monocytes (%) (Auto) 8.3 % (1.0-10.0) Eosinophils (%) (Auto) 1.7 % (0.0-3.0) Basophils (%) (Auto) 0.4 % (0.0-2.0) Sodium Level 142 MMOL/L (136-145) Potassium Level 3.3 MMOL/L (3.5-5.1) L Chloride Level 107 MMOL/L (98-107) Carbon Dioxide Level 25 MMOL/L (21-32) Anion Gap 10 mmol/L (5-15) Blood Urea Nitrogen 13 mg/dL (7-18) Creatinine 0.7 MG/DL (0.55-1.30) Estimat Glomerular Filtration Rate > 60 mL/min (>60) Glucose Level 147 MG/DL (74-106) H Hemoglobin A1c 7.4 % (4.3-6.0) H Uric Acid 3.1 MG/DL (2.6-7.2) Calcium Level 8.1 MG/DL (8.5-10.1) #L Phosphorus Level 2.1 MG/DL (2.5-4.9) L Magnesium Level 1.5 MG/DL (1.8-2.4) L Total Bilirubin 0.7 MG/DL (0.2-1.0) Gamma Glutamyl Transpeptidase 42 U/L (5-85) Aspartate Amino Transf (AST/SGOT) 26 U/L (15-37) Alanine Aminotransferase (ALT/SGPT) 20 U/L (12-78) Alkaline Phosphatase 52 U/L (46-116) C-Reactive Protein, Quantitative 26.0 mg/dL (0.00-0.90) H Pro-B-Type Natriuretic Peptide 5368 pg/mL (0-125) H Total Protein 6.0 G/DL (6.4-8.2) L Albumin 1.9 G/DL (3.4-5.0) L Globulin 4.1 g/dL Albumin/Globulin Ratio 0.5 (1.0-2.7) L Thyroid Stimulating Hormone (TSH) 0.472 uiU/mL (0.358-3.740) Objective HEAD AND NECK: Mild JVD. LUNGS: Decreased breath sounds. CARDIOVASCULAR: Regular S1 and S2 with no gallop. ABDOMEN: Soft. EXTREMITIES: 1+ pitting edema. Defibrillator is in right subclavian. Shai Bullard MD December 14, 2019 14:32
[2019-12-14 16:00] VITALS: BP 125/76
[2019-12-14] MEDS: Magnesium Oxide 400mg tab ORAL SCH (17:31)
--- NOTE | 2019-12-14 18:17 | NUR ---
NURSE NOTES: Optifoam applied to bilateral heels for pressure injury prevention.
--- NOTE | 2019-12-14 19:25 | NUR ---
NURSE NOTES: Report received from BARBARA Fowler. AAOx 2, on venturi mask @30%. Right femoral PICC line patent and intact. Mosqueda catheter intact. HOB elevated, isolation maintained. Bed low and locked, siderails up x2, alarm on, call light within reach, will continue to monitor.
--- NOTE | 2019-12-14 19:33 | NUR ---
HAND-OFF: Report given to Angely JIMENEZ. SCD's applied.
[2019-12-14 20:00] VITALS: BP 133/91
--- NOTE | 2019-12-14 20:14 | Progress Note ---
DATE: 12/14/2019 SUBJECTIVE: This is a 69-year-old male patient with altered mental status, hypertension, and sepsis. He overall decline in cognition below his baseline. He has got some mood lability, confusion, disorganized, thought process cognition below his baseline. That is why, his attending has requested daily psychiatric consultation. MENTAL STATUS EXAMINATION: This is a 69-year-old male. Appearance is disheveled. Attitude, irritable and agitated. Affect, guarded and restricted. Intellect, poor. Mood, depressed and anxious. Motor activity, psychomotor agitation. Insight and judgment is poor. DIAGNOSIS: Major depressive disorder, mild, recurrent with psychotic features, rule out dementia with psychosis. PLAN: Treat with Namenda 5 mg daily, Ativan 1 every 6 hours p.r.n. anxiety and agitation, Neurontin 10 mg every 8 hours. A 20 minutes of insight-oriented psychotherapy. Chart reviewed. Discussed with staff. Seen and assessed at bedside. Mirna Adkins M.D. DR: Alice JOB#: [id number] CC:
[2019-12-14] MEDS: Dyna-Hex 2% Top Sol 2oz TOPIC SCH (21:01)
--- NOTE | 2019-12-14 21:18 | NUR ---
NURSE NOTES: Administered crushed all meds with apple sauce but pt took only two spoons and refused rest of them. Fever 100.9 noted. Ice packs applied. Will continue to monitor.
--- NOTE | 2019-12-14 23:49 | NUR ---
NURSE NOTES: Fever 100.4F noted. Applied ice packs but pt refused. Education given x 3 but still refused x3
[2019-12-15] VITALS: BP 113/78
--- NOTE | 2019-12-15 01:41 | NUR ---
NURSE NOTES: PICC line dressing changed. No s/s of infection noted.
[2019-12-15 04:00] VITALS: BP 145/95
[2019-12-15 05:53] LABS: ALANINE AMINOTRANSFERASE 31 U/L (12-78); ALBUMIN/GLOBULIN RATIO 0.4 (1.0-2.7); ALKALINE PHOSPHATASE 72 U/L (46-116); ANION GAP 10 mmol/L (5-15); ASPARTATE AMINO TRANSFERASE 23 U/L (15-37); BLOOD UREA NITROGEN 14 mg/dL (7-18); CARBON DIOXIDE 28 MMOL/L (21-32); CHLORIDE 105 MMOL/L (98-107); CREATININE 0.8 MG/DL (0.55-1.30); PHOSPHORUS 3.6 MG/DL (2.5-4.9); POTASSIUM 3.6 MMOL/L (3.5-5.1); SODIUM 143 MMOL/L (136-145)
[2019-12-15 06:02] LABS: BASOPHILS % (AUTO) 0.3 % (0.0-2.0); EOSINOPHILS % (AUTO) 1.2 % (0.0-3.0); HEMATOCRIT 32.7 % (42.0-52.0); HEMOGLOBIN 11.1 G/DL (14.2-18.0); LYMPHOCYTES % (AUTO) 8.2 % (20.0-45.0); MEAN CORPUSCULAR VOLUME 85 FL (80-99); MONOCYTES % (AUTO) 7.1 % (1.0-10.0); NEUTROPHILS % (AUTO) 83.3 % (45.0-75.0); PLATELET COUNT 147 K/UL (150-450); RED BLOOD COUNT 3.84 M/UL (4.70-6.10); RED CELL DISTRIBUTION WIDTH 10.9 % (11.6-14.8); WHITE BLOOD COUNT 13.1 K/UL (4.8-10.8)
--- NOTE | 2019-12-15 07:07 | NUR ---
HAND-OFF: Report given to BARBARA Fowler.
--- NOTE | 2019-12-15 07:20 | NUR ---
NURSE NOTES: Report received from BARBARA Au. AxOx 2, on venturi mask @30%. Mild SOB noted. Nurse reports episode of fever overnight Tmax 100.9F. Right femoral PICC line patent and intact. Mosqueda catheter intact. HOB elevated, isolation precautions in place. Bed low and locked, siderails up x2, alarm on, call light within reach, will continue to monitor.
[2019-12-15 08:00] VITALS: BP 139/89
--- NOTE | 2019-12-15 08:16 | NUR ---
NURSE NOTES: Patient noted with tachypnea, sats 88% on venturi mask. RT informed. RT came to see patient, maintained on same settings on venturi mask. Sats went up to 92%. Will continue to monitor.
[2019-12-15] MEDS: Magnesium Oxide 400mg tab ORAL SCH ×4 (08:49→18:00)
[2019-12-15] MEDS: Memantine 5 MG TAB ORAL SCH ×2 (08:50→09:00)
[2019-12-15] MEDS: Phospha 250 Neutral tab ORAL SCH ×4 (08:50→18:00)
--- NOTE | 2019-12-15 09:35 | General Progress Note ---
Assessment/Plan Problem List: (1) Suspected COVID-19 virus infection ICD Codes: Z20.828 - Contact with and (suspected) exposure to other viral communicable diseases SNOMED: 839595898 (2) Anemia ICD Codes: D64.9 - Anemia, unspecified SNOMED: 253145386 (3) Weak ICD Codes: R53.1 - Weakness SNOMED: 29463905 (4) COPD (chronic obstructive pulmonary disease) ICD Codes: J44.9 - Chronic obstructive pulmonary disease, unspecified SNOMED: 11721562 (5) Diabetes ICD Codes: E11.9 - Type 2 diabetes mellitus without complications SNOMED: 85833969 (6) Epileptic seizure, generalized ICD Codes: G40.309 - Generalized idiopathic epilepsy and epileptic syndromes, not intractable, without status epilepticus SNOMED: 47204925 (7) Altered mental status ICD Codes: R41.82 - Altered mental status, unspecified SNOMED: 041261122 Qualifiers: Qualified Codes: R41.82 - Altered mental status, unspecified (8) Hypotension ICD Codes: I95.9 - Hypotension, unspecified SNOMED: 78756626 Qualifiers: Qualified Codes: I95.9 - Hypotension, unspecified Status: unchanged Assessment/Plan: o2 pulm tx abx pt diet cbc bmp am aru eval Subjective Constitutional: Reports: weakness Allergies: Coded Allergies: No Known Allergies (Unverified , 07/28/14) All Systems: reviewed and negative except above Subjective sleepy calm in bed Objective Last 24 Hour Vital Signs Date Time Temp Pulse Resp B/P (MAP) Pulse Ox O2 Delivery O2 Flow Rate FiO2 12/15/19 08:49 91 139/89 12/15/19 08:00 100.8 91 36 139/89 (106) 88 12/15/19 04:00 98.2 92 34 145/95 (112) 92 12/15/19 01:00 97.9 33 94 12/15/19 00:00 100.4 97 38 113/78 (90) 90 12/14/19 21:31 100.4 12/14/19 21:01 102 133/91 12/14/19 20:00 100.9 102 35 133/91 (105) 93 12/14/19 18:55 95 Venturi Mask 40 12/14/19 16:00 97.2 82 19 125/76 (92) 97 12/14/19 12:00 98.0 92 22 134/82 (99) 94 12/14/19 09:42 93 130/79 Intake and Output 12/14/19 12/15/19 19:00 07:00 Intake Total 200 ml Balance 200 ml IV Total 200 ml Laboratory Tests 12/15/19 04:00: White Blood Count 13.1H, Red Blood Count 3.84L, Hemoglobin 11.1L, Hematocrit 32.7L, Mean Corpuscular Volume 85, Mean Corpuscular Hemoglobin 28.9, Mean Corpuscular Hemoglobin Concent 34.0, Red Cell Distribution Width 10.9L, Platelet Count 147L, Mean Platelet Volume 7.1, Neutrophils (%) (Auto) 83.3H, Lymphocytes (%) (Auto) 8.2L, Monocytes (%) (Auto) 7.1, Eosinophils (%) (Auto) 1.2, Basophils (%) (Auto) 0.3, Sodium Level 143, Potassium Level 3.6, Chloride Level 105, Carbon Dioxide Level 28, Anion Gap 10, Blood Urea Nitrogen 14, Creatinine 0.8, Estimat Glomerular Filtration Rate > 60, Glucose Level 188H, Calcium Level 8.0L, Phosphorus Level 3.6, Magnesium Level 1.8, Total Bilirubin 1.0, Aspartate Amino Transf (AST/SGOT) 23, Alanine Aminotransferase (ALT/SGPT) 31, Alkaline Phosphatase 72, Total Protein 6.7, Albumin 2.0L, Globulin 4.7, Albumin/Globulin Ratio 0.4L Height (Feet): 5 Height (Inches): 8.00 Weight (Pounds): 177 General Appearance: lethargic EENT: normal ENT inspection Neck: normal alignment Cardiovascular: normal rate, regular rhythm Respiratory/Chest: no respiratory distress, no accessory muscle use Extremities: normal inspection Skin: normal pigmentation Tee Novoa DO December 15, 2019 09:35
--- NOTE | 2019-12-15 09:46 | NUR ---
NURSE NOTES: Patient refused all morning medications including Tylenol (T100.8F). Pt educated on risks and benefits x3, patient still refused. Also refused to put Venturi mask back on. MD Dr. Novoa made aware. Clarified if ok to administer Tylenol suppository instead, awaiting response.
--- NOTE | 2019-12-15 10:02 | Diagnostic Imaging Report ---
EXAM: XR Chest, 1 View CLINICAL HISTORY: ABN CHST TECHNIQUE: Frontal view of the chest. COMPARISON: Chest x-ray 12/12/19 FINDINGS: Lungs: Worsening bilateral interstitial and airspace opacities. Pleural space: Probable small left pleural effusion. Difficult to evaluate the right costophrenic angle due to overlying pacemaker. No pneumothorax. Heart: Cardiomegaly. Mediastinum: Unremarkable. Bones/joints: Unremarkable. Tubes, lines and devices: Right-sided cardiac pacemaker. IMPRESSION: 1. Worsening bilateral interstitial and airspace opacities. 2. Probable small left pleural effusion. Difficult to evaluate the right costophrenic angle due to overlying pacemaker.
--- NOTE | 2019-12-15 10:11 | NUR ---
NURSE NOTES: CXR results from 12/14 showed worsening bilateral interstitial and airspace opacities and possible small left pleural effusion. Relayed to Dr. Montalvo and received orders to give Lasix 40mg IVP x 1 today. Orders noted and carried out.
--- NOTE | 2019-12-15 10:12 | NUR ---
NURSE NOTES: Received orders from Dr. Novoa, may give Tylenol 650mg suppository per rectum PRN q6hrs for fever. Cooling measures done. Orders noted and carried out.
[2019-12-15] MEDS: Acetaminophen 650 MG SUPP RECTAL PRN ×2 (10:40→16:59)
--- NOTE | 2019-12-15 11:08 | Nephrology Progress Note ---
Assessment/Plan Problem List: (1) Electrolyte imbalance (2) Suspected COVID-19 virus infection (3) Hypotension (4) Sepsis Assessment Patient's current problem from renal standpoint of view is hypokalemia and other electrolyte imbalances His other conditions: Patient presented with acute renal failure however it is now resolved Patient presented with septic shock was on pressors however now resolved Sepsis leukocytosis improving Patient has COVID-19 pneumonia Hypertension Cardiomyopathy status post AICD Previous CVA with right residual weakness Seizure disorders Plan Stop IV fluids Start oral potassium, magnesium, phosphorus supplements We will continue to monitor electrolytes and chemistries Continue per consultants Per orders Subjective ROS Limited/Unobtainable: No Objective Objective Last 24 Hour Vital Signs Date Time Temp Pulse Resp B/P (MAP) Pulse Ox O2 Delivery O2 Flow Rate FiO2 12/15/19 08:00 100.8 91 36 139/89 (106) 88 12/15/19 04:00 98.2 92 34 145/95 (112) 92 12/15/19 01:00 97.9 33 94 12/15/19 00:00 100.4 97 38 113/78 (90) 90 12/14/19 21:31 100.4 12/14/19 21:01 102 133/91 12/14/19 20:00 100.9 102 35 133/91 (105) 93 12/14/19 18:55 95 Venturi Mask 40 12/14/19 16:00 97.2 82 19 125/76 (92) 97 12/14/19 12:00 98.0 92 22 134/82 (99) 94 Intake and Output 12/14/19 12/15/19 19:00 07:00 Intake Total 200 ml Balance 200 ml IV Total 200 ml Laboratory Tests 12/15/19 04:00: White Blood Count 13.1H, Red Blood Count 3.84L, Hemoglobin 11.1L, Hematocrit 32.7L, Mean Corpuscular Volume 85, Mean Corpuscular Hemoglobin 28.9, Mean Corpuscular Hemoglobin Concent 34.0, Red Cell Distribution Width 10.9L, Platelet Count 147L, Mean Platelet Volume 7.1, Neutrophils (%) (Auto) 83.3H, Lymphocytes (%) (Auto) 8.2L, Monocytes (%) (Auto) 7.1, Eosinophils (%) (Auto) 1.2, Basophils (%) (Auto) 0.3, Sodium Level 143, Potassium Level 3.6, Chloride Level 105, Carbon Dioxide Level 28, Anion Gap 10, Blood Urea Nitrogen 14, Creatinine 0.8, Estimat Glomerular Filtration Rate > 60, Glucose Level 188H, Calcium Level 8.0L, Phosphorus Level 3.6, Magnesium Level 1.8, Total Bilirubin 1.0, Aspartate Amino Transf (AST/SGOT) 23, Alanine Aminotransferase (ALT/SGPT) 31, Alkaline Phosphatase 72, Total Protein 6.7, Albumin 2.0L, Globulin 4.7, Albumin/Globulin Ratio 0.4L Height (Feet): 5 Height (Inches): 8.00 Weight (Pounds): 177 General Appearance: no apparent distress Cardiovascular: tachycardia Respiratory/Chest: decreased breath sounds Objective No change Ed Vega MD December 15, 2019 11:08
[2019-12-15 12:00] VITALS: BP 120/82
--- NOTE | 2019-12-15 12:22 | Infectious Diseases Prog Note ---
Assessment/Plan Assessment/Plan Assessment: Septic shock-SP Fever; improving Mild leukocytosis, increasing -u/a neg -Bcx Neg Probable PNA- 2ry to COVID19 (from [place] with confirmed cases) Acute hypoxic respiratory failure- was on NC, now on VM -12/14 CXR: . Worsening bilateral interstitial and airspace opacities. Probable small left pleural effusion. Difficult to evaluate the right costophrenic angle due to overlying pacemaker. -12/11 CXR: Slightly improved bilateral interstitial and airspace infiltrates versus edema -12/09 CXR: Bilateral mid and lower lung interstitial disease, new since prior study.Possible developing left pleural effusion Ferritn >2000, CRP 22.3 -12/05 SARS-COV2 PCR + -CXR: Left basilar atelectasis and/or infiltrate TRAE, improving HTN cadiomyopathy s/p AICD CVA x3 w/ residual R side weakness seizure disorder [place] resident ([facility]) Plan: -Start empiric Zosyn -will consider steroids if respiratory status worsening -12/10 SP Cefepime #6 -12/08 SP IV Vancomycin #4 -f/u cx -Monitor CBC/CMP, temperatures -COVID 19 precautions -clarify goals of care -aspiration precautions -inflamatory markers -u/a w/ reflex, sp cx, Bcx x2 -ABG am Thank you for consulting [facility]. Will continue to follow along with you. Discussed with RN, Subjective Allergies: Coded Allergies: No Known Allergies (Unverified , 07/28/14) Subjective Tm 100.9 on venturi mask 40% wbc increased Objective Vital Signs Last 24 Hour Vital Signs Date Time Temp Pulse Resp B/P (MAP) Pulse Ox O2 Delivery O2 Flow Rate FiO2 12/15/19 08:00 100.8 91 36 139/89 (106) 88 12/15/19 04:00 98.2 92 34 145/95 (112) 92 12/15/19 01:00 97.9 33 94 12/15/19 00:00 100.4 97 38 113/78 (90) 90 12/14/19 21:31 100.4 12/14/19 21:01 102 133/91 12/14/19 20:00 100.9 102 35 133/91 (105) 93 12/14/19 18:55 95 Venturi Mask 40 12/14/19 16:00 97.2 82 19 125/76 (92) 97 Height (Feet): 5 Height (Inches): 8.00 Weight (Pounds): 177 Objective not examined to limit COVID19 exposure Laboratory Tests Test 12/15/19 04:00 White Blood Count 13.1 K/UL (4.8-10.8) H Red Blood Count 3.84 M/UL (4.70-6.10) L Hemoglobin 11.1 G/DL (14.2-18.0) L Hematocrit 32.7 % (42.0-52.0) L Mean Corpuscular Volume 85 FL (80-99) Mean Corpuscular Hemoglobin 28.9 PG (27.0-31.0) Mean Corpuscular Hemoglobin Concent 34.0 G/DL (32.0-36.0) Red Cell Distribution Width 10.9 % (11.6-14.8) L Platelet Count 147 K/UL (150-450) L Mean Platelet Volume 7.1 FL (6.5-10.1) Neutrophils (%) (Auto) 83.3 % (45.0-75.0) H Lymphocytes (%) (Auto) 8.2 % (20.0-45.0) L Monocytes (%) (Auto) 7.1 % (1.0-10.0) Eosinophils (%) (Auto) 1.2 % (0.0-3.0) Basophils (%) (Auto) 0.3 % (0.0-2.0) Sodium Level 143 MMOL/L (136-145) Potassium Level 3.6 MMOL/L (3.5-5.1) Chloride Level 105 MMOL/L (98-107) Carbon Dioxide Level 28 MMOL/L (21-32) Anion Gap 10 mmol/L (5-15) Blood Urea Nitrogen 14 mg/dL (7-18) Creatinine 0.8 MG/DL (0.55-1.30) Estimat Glomerular Filtration Rate > 60 mL/min (>60) Glucose Level 188 MG/DL (74-106) H Calcium Level 8.0 MG/DL (8.5-10.1) L Phosphorus Level 3.6 MG/DL (2.5-4.9) Magnesium Level 1.8 MG/DL (1.8-2.4) Total Bilirubin 1.0 MG/DL (0.2-1.0) Aspartate Amino Transf (AST/SGOT) 23 U/L (15-37) Alanine Aminotransferase (ALT/SGPT) 31 U/L (12-78) Alkaline Phosphatase 72 U/L (46-116) Total Protein 6.7 G/DL (6.4-8.2) Albumin 2.0 G/DL (3.4-5.0) L Globulin 4.7 g/dL Albumin/Globulin Ratio 0.4 (1.0-2.7) L Current Medications Medications (Trade) Dose Ordered Sig/Wiley Route PRN Reason Start Time Stop Time Status Last Admin Dose Admin Acetaminophen (Tylenol) 650 mg Q6H PRN ORAL Temp >100.5 12/11/19 14:45 01/07/20 08:44 12/14/19 21:01 Acetaminophen (Tylenol) 650 mg Q6H PRN RECTAL Temp >100.5 12/15/19 10:15 01/14/20 10:14 12/15/19 10:40 Carvedilol (Coreg) 3.125 mg EVERY 12 HOURS ORAL 12/11/19 21:00 01/10/20 20:59 12/14/19 21:01 Chlorhexidine Gluconate (Milagro-Hex 2%) 1 applic DAILY@1999 TOPIC 12/11/19 20:00 03/06/20 19:59 12/14/19 21:01 Gabapentin (Neurontin) 300 mg Q8HR ORAL 12/11/19 22:00 01/06/20 00:00 12/15/19 05:53 Levetiracetam (Keppra) 1,000 mg Q12HR ORAL 12/11/19 21:00 01/06/20 00:00 12/14/19 21:01 Lorazepam (Ativan 2mg/ml 1ml) 1 mg Q6H PRN IV For Anxiety 12/11/19 14:30 12/18/19 14:29 Magnesium Oxide (Mag-Ox 400mg) 400 mg THREE TIMES A DAY ORAL 12/14/19 18:00 01/13/20 17:59 12/14/19 17:31 Memantine (Namenda) 5 mg DAILY ORAL 12/12/19 09:00 01/06/20 16:59 12/14/19 09:42 Phosphorus (Phospha 250 Neutral) 500 mg THREE TIMES A DAY ORAL 12/14/19 10:15 01/13/20 10:14 12/14/19 17:31 Potassium Chloride (K-Dur) 40 meq DAILY ORAL 12/14/19 10:15 03/13/20 10:14 12/14/19 10:53 Sujatha Sanchez M.D. December 15, 2019 12:21
--- NOTE | 2019-12-15 13:03 | NUR ---
NURSE NOTES: Patient refused 1pm medications. Educated on risks and benefits x3, patient still refused.
[2019-12-15] MEDS: Piperacillin/Tazobactam 3.375 GM in NS 110 ML IVPB SCH ×2 (14:00→21:11)
[2019-12-15] MEDS ORDERED: Tubing IV Secondary IV ONE ×3 (14:06→14:20)
[2019-12-15] MEDS ORDERED: D5W 275ml ONE (14:15)
[2019-12-15] MEDS ORDERED: NS 275ml ONE ×2 (14:19→14:20)
--- NOTE | 2019-12-15 15:09 | NUR ---
NURSE NOTES: Confirmed with Phylicia from labs receipt of 4 bottles blood specimen for blood cultures sent down to lab.
[2019-12-15 16:00] VITALS: BP 127/89
--- NOTE | 2019-12-15 17:20 | Pulmonology Progress Note ---
Assessment/Plan Assessment/Plan IMPRESSION: 1. Cardiomyopathy. 2. Hypotension. 3. Left lung pneumonia. 4. [facility] resident. 5. Positive COVID-19. DISCUSSION: 1. Continue isolation 2. Continue current medications. 3. Off pressors. 4. Oxygen. Requirements decreased now over last 24 hours 5. Pulmonary hygiene. 6. Broad-spectrum antibiotics. 7. I will follow. 8. Transferred to med-surg Mike Montalvo M.D. Subjective ROS Limited/Unobtainable: No Interval Events: Tachypnic yesterday; afebrile Constitutional: Reports: no symptoms Respiratory: Reports: no symptoms Cardiovascular: Reports: no symptoms Gastrointestinal/Abdominal: Reports: no symptoms Genitourinary: Reports: no symptoms Neurologic: Reports: no symptoms Allergies: Coded Allergies: No Known Allergies (Unverified , 07/28/14) All Systems: reviewed and negative except above Objective Last 24 Hour Vital Signs Date Time Temp Pulse Resp B/P (MAP) Pulse Ox O2 Delivery O2 Flow Rate FiO2 12/15/19 16:00 100.9 100 36 127/89 (102) 92 12/15/19 12:00 99.1 97 32 120/82 (95) 92 12/15/19 11:10 99.1 12/15/19 08:00 100.8 91 36 139/89 (106) 88 12/15/19 04:00 98.2 92 34 145/95 (112) 92 12/15/19 01:00 97.9 33 94 12/15/19 00:00 100.4 97 38 113/78 (90) 90 12/14/19 21:31 100.4 12/14/19 21:01 102 133/91 12/14/19 20:00 100.9 102 35 133/91 (105) 93 12/14/19 18:55 95 Venturi Mask 40 Intake and Output 12/14/19 12/15/19 19:00 07:00 Intake Total 200 ml Balance 200 ml IV Total 200 ml General Appearance: no acute distress HEENT: normocephalic Respiratory/Chest: chest wall non-tender, lungs clear Cardiovascular: normal peripheral pulses Abdomen: normal bowel sounds Laboratory Tests 12/15/19 04:00: White Blood Count 13.1H, Red Blood Count 3.84L, Hemoglobin 11.1L, Hematocrit 32.7L, Mean Corpuscular Volume 85, Mean Corpuscular Hemoglobin 28.9, Mean Corpuscular Hemoglobin Concent 34.0, Red Cell Distribution Width 10.9L, Platelet Count 147L, Mean Platelet Volume 7.1, Neutrophils (%) (Auto) 83.3H, Lymphocytes (%) (Auto) 8.2L, Monocytes (%) (Auto) 7.1, Eosinophils (%) (Auto) 1.2, Basophils (%) (Auto) 0.3, Sodium Level 143, Potassium Level 3.6, Chloride Level 105, Carbon Dioxide Level 28, Anion Gap 10, Blood Urea Nitrogen 14, Creatinine 0.8, Estimat Glomerular Filtration Rate > 60, Glucose Level 188H, Calcium Level 8.0L, Phosphorus Level 3.6, Magnesium Level 1.8, Total Bilirubin 1.0, Aspartate Amino Transf (AST/SGOT) 23, Alanine Aminotransferase (ALT/SGPT) 31, Alkaline Phosphatase 72, Total Protein 6.7, Albumin 2.0L, Globulin 4.7, Albumin/Globulin Ratio 0.4L Current Medications Medications (Trade) Dose Ordered Sig/Wiley Route PRN Reason Start Time Stop Time Status Last Admin Dose Admin Acetaminophen (Tylenol) 650 mg Q6H PRN ORAL Temp >100.5 12/11/19 14:45 01/07/20 08:44 12/14/19 21:01 Acetaminophen (Tylenol) 650 mg Q6H PRN RECTAL Temp >100.5 12/15/19 10:15 01/14/20 10:14 12/15/19 16:59 Carvedilol (Coreg) 3.125 mg EVERY 12 HOURS ORAL 12/11/19 21:00 01/10/20 20:59 12/14/19 21:01 Chlorhexidine Gluconate (Milagro-Hex 2%) 1 applic DAILY@1999 TOPIC 12/11/19 20:00 03/06/20 19:59 12/14/19 21:01 Gabapentin (Neurontin) 300 mg Q8HR ORAL 12/11/19 22:00 01/06/20 00:00 12/15/19 14:00 Levetiracetam (Keppra) 1,000 mg Q12HR ORAL 12/11/19 21:00 01/06/20 00:00 12/14/19 21:01 Lorazepam (Ativan 2mg/ml 1ml) 1 mg Q6H PRN IV For Anxiety 12/11/19 14:30 12/18/19 14:29 Magnesium Oxide (Mag-Ox 400mg) 400 mg THREE TIMES A DAY ORAL 12/14/19 18:00 01/13/20 17:59 12/14/19 17:31 Memantine (Namenda) 5 mg DAILY ORAL 12/12/19 09:00 01/06/20 16:59 12/14/19 09:42 Phosphorus (Phospha 250 Neutral) 500 mg THREE TIMES A DAY ORAL 12/14/19 10:15 01/13/20 10:14 12/14/19 17:31 Piperacillin Sod/ Tazobactam Sod 3.375 gm/Sodium Chloride 110 ml @ 27.5 mls/hr EVERY 8 HOURS IVPB 12/15/19 14:00 12/20/19 13:59 12/15/19 14:00 Potassium Chloride (K-Dur) 40 meq DAILY ORAL 12/14/19 10:15 03/13/20 10:14 12/14/19 10:53 Mike Montalvo MD December 15, 2019 17:20
--- NOTE | 2019-12-15 18:00 | Progress Note ---
DATE: 12/15/2019 SUBJECTIVE: This is a male patient who is 69-year-old who has altered mental status, hypertension, sepsis, confusion, decline in cognition below the baseline. That is why, his attending has requested daily psychiatric consultation. MENTAL STATUS EXAMINATION: This is a 69-year-old male. Appearance is disheveled. Attitude, irritable and agitated. Affect restricted. Intellect, poor. Mood, depressed and anxious. Motor activity, psychomotor agitation. Insight and judgment is poor. DIAGNOSIS: Major depressive disorder, mild, recurrent with psychotic features, rule out dementia with psychosis. PLAN: Neurontin at a dose of 300 mg q.8h., Ativan 1 IV every 6 hours p.r.n. anxiety and agitation, and Namenda 5 mg a day. Twenty minutes of reality-based supportive psychotherapy. Twenty minutes of cognitive behavioral therapy to help him identify his automatic negative thoughts, help him convert his negative thoughts to more positive thoughts to reduce depression, anxiety, mood lability. Chart reviewed. Discussed with staff. Seen and assessed at beside. Mirna Adkins M.D. DR: JANETT JOB#: [id number] CC:
--- NOTE | 2019-12-15 18:41 | NUR ---
NURSE NOTES: Tylenol suppository given at 1700H. Latest temp check 97.7F axillary. Patient refused 6pm medications. Educated of risks and benefits x2, patient still refused.
--- NOTE | 2019-12-15 18:59 | NUR ---
NURSE NOTES: Spoke RT, they are unable to collect sputum for culture via suctioning as pt is covid (+). Pt is also unable to cough out sputum and follow instructions. Dr. Sanchez informed. Awaiting response.
--- NOTE | 2019-12-15 19:25 | NUR ---
NURSE NOTES: Report received from BARBARA Fowler. AAOx 2, on venturi mask @30%. Pt has SOB noted. Right femoral PICC line patent and intact. Mosqueda catheter intact. HOB elevated, isolation maintained. Bed low and locked, siderails up x2, alarm on, call light within reach, will continue to monitor.
--- NOTE | 2019-12-15 19:43 | NUR ---
HAND-OFF: Report given to BARBARA Au. Endorsed that urine and blood specimen collected for ordered labs.
[2019-12-15 20:00] VITALS: BP 140/90
[2019-12-15 20:15] LABS: APPEARANCE,URINE CLOUDY; BILIRUBIN, URINE NEGATIVE (NEGATIVE); GLUCOSE, URINE (UA) NEGATIVE (NEGATIVE); KETONES,URINE 1+ (NEGATIVE); LEUKOCYTE ESTERASE ,URINE 1+ (NEGATIVE); NITRITE,URINE NEGATIVE (NEGATIVE); PH,URINE 5 (4.5-8.0); PROTEIN,URINE 3+ (NEGATIVE); UROBILINOGEN,URINE 4 MG/DL (0.0-1.0)
[2019-12-15 20:22] LABS: COLOR,URINE YELLOW
[2019-12-15] MEDS: Dyna-Hex 2% Top Sol 2oz TOPIC SCH (21:10)
--- NOTE | 2019-12-15 21:27 | NUR ---
NURSE NOTES: Pt refused crushed meds with apple sauce and ice packs for fever. Education given x 3 but still refused x 4. Will continue to monitor.
--- NOTE | 2019-12-15 22:30 | NUR ---
NURSE NOTES: Received order NS 50cc/hr from Dr. Montalvo. Order carried out.
[2019-12-16] VITALS: BP 147/84
[2019-12-16 04:00] VITALS: BP 149/88
[2019-12-16 05:03] LABS: BASOPHILS % (AUTO) 0.3 % (0.0-2.0); EOSINOPHILS % (AUTO) 1.2 % (0.0-3.0); HEMATOCRIT 33.8 % (42.0-52.0); HEMOGLOBIN 11.3 G/DL (14.2-18.0); LYMPHOCYTES % (AUTO) 7.2 % (20.0-45.0); MEAN CORPUSCULAR VOLUME 85 FL (80-99); MONOCYTES % (AUTO) 6.6 % (1.0-10.0); NEUTROPHILS % (AUTO) 84.7 % (45.0-75.0); PLATELET COUNT 145 K/UL (150-450); RED BLOOD COUNT 3.96 M/UL (4.70-6.10); WHITE BLOOD COUNT 15.3 K/UL (4.8-10.8)
[2019-12-16 05:21] LABS: ANION GAP 8 mmol/L (5-15); BLOOD UREA NITROGEN 18 mg/dL (7-18); CALCIUM 8.5 MG/DL (8.5-10.1); CARBON DIOXIDE 30 MMOL/L (21-32); CHLORIDE 103 MMOL/L (98-107); FERRITIN 1468 NG/ML (8-388); POTASSIUM 3.5 MMOL/L (3.5-5.1); SODIUM 141 MMOL/L (136-145)
[2019-12-16] MEDS: Piperacillin/Tazobactam 3.375 GM in NS 110 ML IVPB SCH ×3 (06:04→20:51)
--- NOTE | 2019-12-16 06:37 | NUR ---
NURSE NOTES: Montero cath leaking noted. Attempted to insert new montero but pt refused and moved a lot. Unable to insert it
--- NOTE | 2019-12-16 06:40 | NUR ---
NURSE NOTES: Pt refused crushed meds with apple sauce. Education given but still refused.
--- NOTE | 2019-12-16 07:31 | NUR ---
HAND-OFF: Report given to BARBARA Fowler.
--- NOTE | 2019-12-16 07:35 | NUR ---
NURSE NOTES: Report received from BARBARA Au. AxOx 2, on venturi mask @30%. Mild SOB noted. Sats 88-91%. Nurse reports episode of fever overnight and refusal of medications and patient care. Right femoral PICC line patent and intact infusing IVF as ordered. Mosqueda catheter noted with leak, will reattempt insertion today. HOB elevated, isolation precautions in place. Bed low and locked, siderails up x2, alarm on, call light within reach, will continue to monitor.
[2019-12-16 08:00] VITALS: BP 146/80
--- NOTE | 2019-12-16 09:54 | General Progress Note ---
Assessment/Plan Problem List: (1) Suspected COVID-19 virus infection ICD Codes: Z20.828 - Contact with and (suspected) exposure to other viral communicable diseases SNOMED: 687254283 (2) Anemia ICD Codes: D64.9 - Anemia, unspecified SNOMED: 203048780 (3) Weak ICD Codes: R53.1 - Weakness SNOMED: 49974367 (4) COPD (chronic obstructive pulmonary disease) ICD Codes: J44.9 - Chronic obstructive pulmonary disease, unspecified SNOMED: 45936699 (5) Diabetes ICD Codes: E11.9 - Type 2 diabetes mellitus without complications SNOMED: 81075680 (6) Epileptic seizure, generalized ICD Codes: G40.309 - Generalized idiopathic epilepsy and epileptic syndromes, not intractable, without status epilepticus SNOMED: 61307981 (7) Altered mental status ICD Codes: R41.82 - Altered mental status, unspecified SNOMED: 920599881 Qualifiers: Qualified Codes: R41.82 - Altered mental status, unspecified (8) Hypotension ICD Codes: I95.9 - Hypotension, unspecified SNOMED: 53808113 Qualifiers: Qualified Codes: I95.9 - Hypotension, unspecified (9) UTI (urinary tract infection) ICD Codes: N39.0 - Urinary tract infection, site not specified SNOMED: 54147197 Status: unchanged Assessment/Plan: o2 pulm tx abx pt diet cbc bmp am aru eval Subjective Constitutional: Reports: weakness Allergies: Coded Allergies: No Known Allergies (Unverified , 07/28/14) All Systems: reviewed and negative except above Subjective sleepy calm in bed Objective Last 24 Hour Vital Signs Date Time Temp Pulse Resp B/P (MAP) Pulse Ox O2 Delivery O2 Flow Rate FiO2 12/16/19 08:00 98.4 92 36 146/80 (102) 91 12/16/19 04:00 98.6 95 34 149/88 (108) 91 12/16/19 00:00 98.6 96 33 147/84 (105) 89 12/15/19 21:00 97 140/90 12/15/19 20:00 98.7 91 33 140/90 (107) 91 12/15/19 19:56 92 Venturi Mask 8.0 40 12/15/19 17:29 97.7 12/15/19 16:00 100.9 100 36 127/89 (102) 92 12/15/19 12:00 99.1 97 32 120/82 (95) 92 Laboratory Tests 12/15/19 19:30: Urine Color Yellow, Urine Appearance Cloudy, Urine pH 5, Urine Specific [place] 1.025, Urine Protein 3+H, Urine Glucose (UA) Negative, Urine Ketones 1+H, Urine Blood 5+H, Urine Nitrite Negative, Urine Bilirubin Negative, Urine Urobilinogen 4H, Urine Leukocyte Esterase 1+H, Urine RBC 15-20H, Urine WBC 2-4, Urine Squamous Epithelial Cells Occasional, Urine Bacteria Few 12/16/19 04:00: White Blood Count 15.3H, Red Blood Count 3.96L, Hemoglobin 11.3L, Hematocrit 33.8L, Mean Corpuscular Volume 85, Mean Corpuscular Hemoglobin 28.5, Mean Corpuscular Hemoglobin Concent 33.5, Red Cell Distribution Width 11.0L, Platelet Count 145L, Mean Platelet Volume 7.5, Neutrophils (%) (Auto) 84.7H, Lymphocytes (%) (Auto) 7.2L, Monocytes (%) (Auto) 6.6, Eosinophils (%) (Auto) 1.2, Basophils (%) (Auto) 0.3, Sodium Level 141, Potassium Level 3.5, Chloride Level 103, Carbon Dioxide Level 30, Anion Gap 8, Blood Urea Nitrogen 18, Creatinine 1.0, Estimat Glomerular Filtration Rate > 60, Glucose Level 174H, Calcium Level 8.5, Ferritin 1468H, Lactate Dehydrogenase 382H, C-Reactive Protein, Quantitative 41.6H 12/16/19 07:25: Fibrinogen 377, D-Dimer > 35.20H Height (Feet): 5 Height (Inches): 8.00 Weight (Pounds): 177 General Appearance: lethargic EENT: normal ENT inspection Neck: normal alignment Cardiovascular: normal rate, regular rhythm Respiratory/Chest: no respiratory distress, no accessory muscle use Extremities: normal inspection Skin: normal pigmentation Tee Novoa[place]annah December 16, 2019 09:54
[2019-12-16] MEDS: Memantine 5 MG TAB ORAL SCH (10:03)
[2019-12-16] MEDS: Phospha 250 Neutral tab ORAL SCH ×3 (10:03→18:13)
[2019-12-16] MEDS: Magnesium Oxide 400mg tab ORAL SCH ×3 (10:03→18:12)
--- NOTE | 2019-12-16 10:04 | NUR ---
*-*DISCHARGE PLANNING*-* PATIENT HAS BEEN REFERRED TO: [facility] P: [phone] F: [phone] Addendum: 12/16/19 at 1136 by MOHINI LOBO LVN LVN PER [facility] AT [facility], PATIENT DENIED ACCEPTANCE AT THIS TIME DR ANDRE INFORMED
--- NOTE | 2019-12-16 10:22 | Nephrology Progress Note ---
Assessment/Plan Problem List: (1) Electrolyte imbalance (2) Suspected COVID-19 virus infection (3) Hypotension (4) Sepsis Assessment Patient's current problem from renal standpoint of view is hypokalemia and other electrolyte imbalances His other conditions: Patient presented with acute renal failure however it is now resolved Patient presented with septic shock was on pressors however now resolved Sepsis leukocytosis improving Patient has COVID-19 pneumonia Hypertension Cardiomyopathy status post AICD Previous CVA with right residual weakness Seizure disorders Plan Stable from renal standpoint of view Stop IV fluids Start oral potassium, magnesium, phosphorus supplements We will continue to monitor electrolytes and chemistries Continue per consultants Per orders Subjective ROS Limited/Unobtainable: No Constitutional: Reports: malaise Objective Objective Last 24 Hour Vital Signs Date Time Temp Pulse Resp B/P (MAP) Pulse Ox O2 Delivery O2 Flow Rate FiO2 12/16/19 10:03 92 146/80 12/16/19 08:00 98.4 92 36 146/80 (102) 91 12/16/19 04:00 98.6 95 34 149/88 (108) 91 12/16/19 00:00 98.6 96 33 147/84 (105) 89 12/15/19 21:00 97 140/90 12/15/19 20:00 98.7 91 33 140/90 (107) 91 12/15/19 19:56 92 Venturi Mask 8.0 40 12/15/19 17:29 97.7 12/15/19 16:00 100.9 100 36 127/89 (102) 92 12/15/19 12:00 99.1 97 32 120/82 (95) 92 Laboratory Tests 12/15/19 19:30: Urine Color Yellow, Urine Appearance Cloudy, Urine pH 5, Urine Specific [place] 1.025, Urine Protein 3+H, Urine Glucose (UA) Negative, Urine Ketones 1+H, Urine Blood 5+H, Urine Nitrite Negative, Urine Bilirubin Negative, Urine Urobilinogen 4H, Urine Leukocyte Esterase 1+H, Urine RBC 15-20H, Urine WBC 2-4, Urine Squamous Epithelial Cells Occasional, Urine Bacteria Few 12/16/19 04:00: White Blood Count 15.3H, Red Blood Count 3.96L, Hemoglobin 11.3L, Hematocrit 33.8L, Mean Corpuscular Volume 85, Mean Corpuscular Hemoglobin 28.5, Mean Corpuscular Hemoglobin Concent 33.5, Red Cell Distribution Width 11.0L, Platelet Count 145L, Mean Platelet Volume 7.5, Neutrophils (%) (Auto) 84.7H, Lymphocytes (%) (Auto) 7.2L, Monocytes (%) (Auto) 6.6, Eosinophils (%) (Auto) 1.2, Basophils (%) (Auto) 0.3, Sodium Level 141, Potassium Level 3.5, Chloride Level 103, Carbon Dioxide Level 30, Anion Gap 8, Blood Urea Nitrogen 18, Creatinine 1.0, Estimat Glomerular Filtration Rate > 60, Glucose Level 174H, Calcium Level 8.5, Ferritin 1468H, Lactate Dehydrogenase 382H, C-Reactive Protein, Quantitative 41.6H 12/16/19 07:25: Fibrinogen 377, D-Dimer > 35.20H Height (Feet): 5 Height (Inches): 8.00 Weight (Pounds): 177 General Appearance: no apparent distress Cardiovascular: tachycardia Abdomen: soft Objective No change Ed Vega MD December 16, 2019 10:22
--- NOTE | 2019-12-16 11:56 | NUR ---
NURSE NOTES: Spoke with Dr. Adkins (psych) notified him that patient has been taking off venturi mask, becoming increasingly agitated and resistive to care. Refuses to take medications. Received orders to place on bilateral soft wrist restraints. May administer 1 time dose of Haldol 5mg, Benadryl 50mg, and Ativan 2mg IV PRN for agitation. Orders noted and carried out.
[2019-12-16 12:00] VITALS: BP 136/62
--- NOTE | 2019-12-16 12:06 | Pulmonology Progress Note ---
Assessment/Plan Assessment/Plan IMPRESSION: 1. Cardiomyopathy. 2. Hypotension. 3. Left lung pneumonia. 4. [facility] resident. 5. Positive COVID-19. DISCUSSION: 1. Continue isolation 2. Continue current medications. 3. Off pressors. 4. Continue O2 5. Pulmonary hygiene. 6. Broad-spectrum antibiotics. 7. I will follow. 8. Transferred to med-surg 9. Will diurese today Mike Montalvo M.D. Subjective ROS Limited/Unobtainable: No Interval Events: Tachypnic yesterday; afebrile Constitutional: Reports: no symptoms Respiratory: Reports: no symptoms Cardiovascular: Reports: no symptoms Gastrointestinal/Abdominal: Reports: no symptoms Genitourinary: Reports: no symptoms Neurologic: Reports: no symptoms Allergies: Coded Allergies: No Known Allergies (Unverified , 07/28/14) All Systems: reviewed and negative except above Objective Last 24 Hour Vital Signs Date Time Temp Pulse Resp B/P (MAP) Pulse Ox O2 Delivery O2 Flow Rate FiO2 12/16/19 10:03 92 146/80 12/16/19 08:00 98.4 92 36 146/80 (102) 91 12/16/19 04:00 98.6 95 34 149/88 (108) 91 12/16/19 00:00 98.6 96 33 147/84 (105) 89 12/15/19 21:00 97 140/90 12/15/19 20:00 98.7 91 33 140/90 (107) 91 12/15/19 19:56 92 Venturi Mask 8.0 40 12/15/19 17:29 97.7 12/15/19 16:00 100.9 100 36 127/89 (102) 92 General Appearance: no acute distress HEENT: normocephalic Respiratory/Chest: chest wall non-tender, lungs clear Cardiovascular: normal peripheral pulses Abdomen: normal bowel sounds Laboratory Tests 12/15/19 19:30: Urine Color Yellow, Urine Appearance Cloudy, Urine pH 5, Urine Specific [place] 1.025, Urine Protein 3+H, Urine Glucose (UA) Negative, Urine Ketones 1+H, Urine Blood 5+H, Urine Nitrite Negative, Urine Bilirubin Negative, Urine Urobilinogen 4H, Urine Leukocyte Esterase 1+H, Urine RBC 15-20H, Urine WBC 2-4, Urine Squamous Epithelial Cells Occasional, Urine Bacteria Few 12/16/19 04:00: White Blood Count 15.3H, Red Blood Count 3.96L, Hemoglobin 11.3L, Hematocrit 33.8L, Mean Corpuscular Volume 85, Mean Corpuscular Hemoglobin 28.5, Mean Corpuscular Hemoglobin Concent 33.5, Red Cell Distribution Width 11.0L, Platelet Count 145L, Mean Platelet Volume 7.5, Neutrophils (%) (Auto) 84.7H, Lymphocytes (%) (Auto) 7.2L, Monocytes (%) (Auto) 6.6, Eosinophils (%) (Auto) 1.2, Basophils (%) (Auto) 0.3, Sodium Level 141, Potassium Level 3.5, Chloride Level 103, Carbon Dioxide Level 30, Anion Gap 8, Blood Urea Nitrogen 18, Creatinine 1.0, Estimat Glomerular Filtration Rate > 60, Glucose Level 174H, Calcium Level 8.5, Ferritin 1468H, Lactate Dehydrogenase 382H, C-Reactive Protein, Quantitative 41.6H 12/16/19 07:25: Fibrinogen 377, D-Dimer > 35.20H Current Medications Medications (Trade) Dose Ordered Sig/Wiley Route PRN Reason Start Time Stop Time Status Last Admin Dose Admin Acetaminophen (Tylenol) 650 mg Q6H PRN ORAL Temp >100.5 12/11/19 14:45 01/07/20 08:44 12/14/19 21:01 Acetaminophen (Tylenol) 650 mg Q6H PRN RECTAL Temp >100.5 12/15/19 10:15 01/14/20 10:14 12/15/19 16:59 Carvedilol (Coreg) 3.125 mg EVERY 12 HOURS ORAL 12/11/19 21:00 01/10/20 20:59 12/16/19 10:03 Chlorhexidine Gluconate (Milagro-Hex 2%) 1 applic DAILY@1999 TOPIC 12/11/19 20:00 03/06/20 19:59 12/15/19 21:10 Gabapentin (Neurontin) 300 mg Q8HR ORAL 12/11/19 22:00 01/06/20 00:00 12/15/19 14:00 Levetiracetam (Keppra) 1,000 mg Q12HR ORAL 12/11/19 21:00 01/06/20 00:00 12/16/19 10:03 Lorazepam (Ativan 2mg/ml 1ml) 1 mg Q6H PRN IV For Anxiety 12/11/19 14:30 12/18/19 14:29 12/16/19 10:04 Magnesium Oxide (Mag-Ox 400mg) 400 mg THREE TIMES A DAY ORAL 12/14/19 18:00 01/13/20 17:59 12/16/19 10:03 Memantine (Namenda) 5 mg DAILY ORAL 12/12/19 09:00 01/06/20 16:59 12/16/19 10:03 Phosphorus (Phospha 250 Neutral) 500 mg THREE TIMES A DAY ORAL 12/14/19 10:15 01/13/20 10:14 12/16/19 10:03 Piperacillin Sod/ Tazobactam Sod 3.375 gm/Sodium Chloride 110 ml @ 27.5 mls/hr EVERY 8 HOURS IVPB 12/15/19 14:00 12/20/19 13:59 12/16/19 06:04 Potassium Chloride (K-Dur) 40 meq DAILY ORAL 12/14/19 10:15 03/13/20 10:14 12/16/19 10:03 Sodium Chloride 1,000 ml @ 50 mls/hr Q20H IV 12/15/19 22:30 01/14/20 22:29 12/15/19 22:39 Mike Montalvo MD December 16, 2019 12:05
--- NOTE | 2019-12-16 12:36 | Infectious Diseases Prog Note ---
Assessment/Plan Assessment/Plan Assessment: Septic shock-SP Fever; improving Mild leukocytosis, increasing -12/14 u/a wbc 15-20, nit neg, leuk +1; ucx p Bcx p -u/a neg -Bcx Neg Probable PNA- 2ry to COVID19 (from [place] with confirmed cases) Acute hypoxic respiratory failure- was on NC, now on VM -12/15 CRP 41.6, ferritin 1468 -12/14 CXR: . Worsening bilateral interstitial and airspace opacities. Probable small left pleural effusion. Difficult to evaluate the right costophrenic angle due to overlying pacemaker. -12/11 CXR: Slightly improved bilateral interstitial and airspace infiltrates versus edema -12/09 CXR: Bilateral mid and lower lung interstitial disease, new since prior study.Possible developing left pleural effusion Ferritn >2000, CRP 22.3 -12/05 SARS-COV2 PCR + -CXR: Left basilar atelectasis and/or infiltrate TRAE, improving HTN cadiomyopathy s/p AICD CVA x3 w/ residual R side weakness seizure disorder [facility] Plan: -Continue empiric Zosyn #2 and add IV Vancomycin -will start Solumedrol 40mg IV 12hrs x 5days- (day 10 of illness and worsening; around this time is seen the worsening of COVID19 pts mainly driven by inflammatory response) -12/10 SP Cefepime #6 -12/08 SP IV Vancomycin #4 -f/u cx -Monitor CBC/CMP, temperatures -COVID 19 precautions -clarify goals of care -aspiration precautions -inflamatory markers -f/u ucx, sp cx, Bcx x2 -f/u ABG am Thank you for consulting [facility]. Will continue to follow along with you. Discussed with RN, Subjective Allergies: Coded Allergies: No Known Allergies (Unverified , 07/28/14) Subjective Tm 100.9 on venturi mask 40%, 8L wbc increased Objective Vital Signs Last 24 Hour Vital Signs Date Time Temp Pulse Resp B/P (MAP) Pulse Ox O2 Delivery O2 Flow Rate FiO2 12/16/19 10:03 92 146/80 12/16/19 08:00 98.4 92 36 146/80 (102) 91 12/16/19 04:00 98.6 95 34 149/88 (108) 91 12/16/19 00:00 98.6 96 33 147/84 (105) 89 12/15/19 21:00 97 140/90 12/15/19 20:00 98.7 91 33 140/90 (107) 91 12/15/19 19:56 92 Venturi Mask 8.0 40 12/15/19 17:29 97.7 12/15/19 16:00 100.9 100 36 127/89 (102) 92 Height (Feet): 5 Height (Inches): 8.00 Weight (Pounds): 177 Objective not examined to limit COVID19 exposure Laboratory Tests Test 12/15/19 19:30 12/16/19 04:00 12/16/19 07:25 Urine Color Yellow Urine Appearance Cloudy Urine pH 5 (4.5-8.0) Urine Specific [place] 1.025 (1.005-1.035) Urine Protein 3+ (NEGATIVE) H Urine Glucose (UA) Negative (NEGATIVE) Urine Ketones 1+ (NEGATIVE) H Urine Blood 5+ (NEGATIVE) H Urine Nitrite Negative (NEGATIVE) Urine Bilirubin Negative (NEGATIVE) Urine Urobilinogen 4 MG/DL (0.0-1.0) H Urine Leukocyte Esterase 1+ (NEGATIVE) H Urine RBC 15-20 /HPF (0 - 0) H Urine WBC 2-4 /HPF (0 - 0) Urine Squamous Epithelial Cells Occasional /LPF Urine Bacteria Few /HPF (NONE) White Blood Count 15.3 K/UL (4.8-10.8) H Red Blood Count 3.96 M/UL (4.70-6.10) L Hemoglobin 11.3 G/DL (14.2-18.0) L Hematocrit 33.8 % (42.0-52.0) L Mean Corpuscular Volume 85 FL (80-99) Mean Corpuscular Hemoglobin 28.5 PG (27.0-31.0) Mean Corpuscular Hemoglobin Concent 33.5 G/DL (32.0-36.0) Red Cell Distribution Width 11.0 % (11.6-14.8) L Platelet Count 145 K/UL (150-450) L Mean Platelet Volume 7.5 FL (6.5-10.1) Neutrophils (%) (Auto) 84.7 % (45.0-75.0) H Lymphocytes (%) (Auto) 7.2 % (20.0-45.0) L Monocytes (%) (Auto) 6.6 % (1.0-10.0) Eosinophils (%) (Auto) 1.2 % (0.0-3.0) Basophils (%) (Auto) 0.3 % (0.0-2.0) Sodium Level 141 MMOL/L (136-145) Potassium Level 3.5 MMOL/L (3.5-5.1) Chloride Level 103 MMOL/L (98-107) Carbon Dioxide Level 30 MMOL/L (21-32) Anion Gap 8 mmol/L (5-15) Blood Urea Nitrogen 18 mg/dL (7-18) Creatinine 1.0 MG/DL (0.55-1.30) Estimat Glomerular Filtration Rate > 60 mL/min (>60) Glucose Level 174 MG/DL (74-106) H Calcium Level 8.5 MG/DL (8.5-10.1) Ferritin 1468 NG/ML (8-388) H Lactate Dehydrogenase 382 U/L (81-234) H C-Reactive Protein, Quantitative 41.6 mg/dL (0.00-0.90) H Fibrinogen 377 mg/dL (200-400) D-Dimer > 35.20 mg/L FEU Current Medications Medications (Trade) Dose Ordered Sig/Wiley Route PRN Reason Start Time Stop Time Status Last Admin Dose Admin Acetaminophen (Tylenol) 650 mg Q6H PRN ORAL Temp >100.5 12/11/19 14:45 01/07/20 08:44 12/14/19 21:01 Acetaminophen (Tylenol) 650 mg Q6H PRN RECTAL Temp >100.5 12/15/19 10:15 01/14/20 10:14 12/15/19 16:59 Carvedilol (Coreg) 3.125 mg EVERY 12 HOURS ORAL 12/11/19 21:00 01/10/20 20:59 12/16/19 10:03 Chlorhexidine Gluconate (Milagro-Hex 2%) 1 applic DAILY@1999 TOPIC 12/11/19 20:00 03/06/20 19:59 12/15/19 21:10 Furosemide (Lasix) 40 mg EVERY 12 HOURS ORAL 12/16/19 21:00 01/15/20 20:59 Gabapentin (Neurontin) 300 mg Q8HR ORAL 12/11/19 22:00 01/06/20 00:00 12/15/19 14:00 Levetiracetam (Keppra) 1,000 mg Q12HR ORAL 12/11/19 21:00 01/06/20 00:00 12/16/19 10:03 Lorazepam (Ativan 2mg/ml 1ml) 1 mg Q6H PRN IV For Anxiety 12/11/19 14:30 12/18/19 14:29 12/16/19 10:04 Magnesium Oxide (Mag-Ox 400mg) 400 mg THREE TIMES A DAY ORAL 12/14/19 18:00 01/13/20 17:59 12/16/19 10:03 Memantine (Namenda) 5 mg DAILY ORAL 12/12/19 09:00 01/06/20 16:59 12/16/19 10:03 Phosphorus (Phospha 250 Neutral) 500 mg THREE TIMES A DAY ORAL 12/14/19 10:15 01/13/20 10:14 12/16/19 10:03 Piperacillin Sod/ Tazobactam Sod 3.375 gm/Sodium Chloride 110 ml @ 27.5 mls/hr EVERY 8 HOURS IVPB 12/15/19 14:00 12/20/19 13:59 12/16/19 06:04 Potassium Chloride (K-Dur) 40 meq DAILY ORAL 12/14/19 10:15 03/13/20 10:14 12/16/19 10:03 Sodium Chloride 1,000 ml @ 50 mls/hr Q20H IV 12/15/19 22:30 01/14/20 22:29 12/15/19 22:39 Sujatha Sanchez M.D. December 16, 2019 12:36
[2019-12-16] MEDS: NS IVPB SCH ×2 (13:40→20:45)
[2019-12-16] MEDS: METHYLPREDNISOLONE SOD SUCC IVPB SCH ×2 (13:40→20:45)
--- NOTE | 2019-12-16 13:51 | Cardiac Electrophysiology PN ---
Assessment/Plan Assessment/Plan 1. S/P Shock due to cardiomyopathy EF 40 and sepsis BNP is 736. On iv Abx by Dr. Sanchez 2. Cardiomyopathy EF 40%. On Coreg 3.125 bid 3. Status post right-sided MERT ICD. 4. History of hypertension 5. History of CVA with residual weakness. 6. COVID-19 PNA, off the vent DW RN Subjective Subjective Covid is positive. Had rapid response over the weekend for low saturation and was placed on Venturi Mask.In isolation Objective Last 24 Hour Vital Signs Date Time Temp Pulse Resp B/P (MAP) Pulse Ox O2 Delivery O2 Flow Rate FiO2 12/16/19 12:00 98.3 98 32 136/62 (86) 91 12/16/19 10:03 92 146/80 12/16/19 08:00 98.4 92 36 146/80 (102) 91 12/16/19 04:00 98.6 95 34 149/88 (108) 91 12/16/19 00:00 98.6 96 33 147/84 (105) 89 12/15/19 21:00 97 140/90 12/15/19 20:00 98.7 91 33 140/90 (107) 91 12/15/19 19:56 92 Venturi Mask 8.0 40 12/15/19 17:29 97.7 12/15/19 16:00 100.9 100 36 127/89 (102) 92 Laboratory Tests Test 12/15/19 19:30 12/16/19 04:00 12/16/19 07:25 Urine Color Yellow Urine Appearance Cloudy Urine pH 5 (4.5-8.0) Urine Specific [place] 1.025 (1.005-1.035) Urine Protein 3+ (NEGATIVE) H Urine Glucose (UA) Negative (NEGATIVE) Urine Ketones 1+ (NEGATIVE) H Urine Blood 5+ (NEGATIVE) H Urine Nitrite Negative (NEGATIVE) Urine Bilirubin Negative (NEGATIVE) Urine Urobilinogen 4 MG/DL (0.0-1.0) H Urine Leukocyte Esterase 1+ (NEGATIVE) H Urine RBC 15-20 /HPF (0 - 0) H Urine WBC 2-4 /HPF (0 - 0) Urine Squamous Epithelial Cells Occasional /LPF Urine Bacteria Few /HPF (NONE) White Blood Count 15.3 K/UL (4.8-10.8) H Red Blood Count 3.96 M/UL (4.70-6.10) L Hemoglobin 11.3 G/DL (14.2-18.0) L Hematocrit 33.8 % (42.0-52.0) L Mean Corpuscular Volume 85 FL (80-99) Mean Corpuscular Hemoglobin 28.5 PG (27.0-31.0) Mean Corpuscular Hemoglobin Concent 33.5 G/DL (32.0-36.0) Red Cell Distribution Width 11.0 % (11.6-14.8) L Platelet Count 145 K/UL (150-450) L Mean Platelet Volume 7.5 FL (6.5-10.1) Neutrophils (%) (Auto) 84.7 % (45.0-75.0) H Lymphocytes (%) (Auto) 7.2 % (20.0-45.0) L Monocytes (%) (Auto) 6.6 % (1.0-10.0) Eosinophils (%) (Auto) 1.2 % (0.0-3.0) Basophils (%) (Auto) 0.3 % (0.0-2.0) Sodium Level 141 MMOL/L (136-145) Potassium Level 3.5 MMOL/L (3.5-5.1) Chloride Level 103 MMOL/L (98-107) Carbon Dioxide Level 30 MMOL/L (21-32) Anion Gap 8 mmol/L (5-15) Blood Urea Nitrogen 18 mg/dL (7-18) Creatinine 1.0 MG/DL (0.55-1.30) Estimat Glomerular Filtration Rate > 60 mL/min (>60) Glucose Level 174 MG/DL (74-106) H Calcium Level 8.5 MG/DL (8.5-10.1) Ferritin 1468 NG/ML (8-388) H Lactate Dehydrogenase 382 U/L (81-234) H C-Reactive Protein, Quantitative 41.6 mg/dL (0.00-0.90) H Fibrinogen 377 mg/dL (200-400) D-Dimer > 35.20 mg/L FEU Objective HEAD AND NECK: Mild JVD. LUNGS: Decreased breath sounds. CARDIOVASCULAR: Regular S1 and S2 with no gallop. ABDOMEN: Soft. EXTREMITIES: 1+ pitting edema. Defibrillator is in right subclavian. Shai Bullard MD December 16, 2019 13:51
[2019-12-16] MEDS ORDERED: Vancomycin 1.25gm/NS Premix IVPB ONE (14:00)
[2019-12-16] MEDS: Vancomycin 750mg/NS 275ml IVPB SCH ×2 (15:11)
--- NOTE | 2019-12-16 15:17 | NUR ---
CASE MANAGEMENT: REVIEW SI: COVID-19 PNEUMONIA AC HYPOXIC RESPIRATORY FAILURE. SEPTIC SHOCK. 98.7 98 36 149/88 89% 8L VENTURI MASK WBC 15.3 BG 174 FERR 1468 LAC DHG 982 CRP 41.6 IS;VANCOMYCIN IV Q12 HRS LASIX PO Q12 HRS SOLU MEDROL IV Q12 HRS ZOSYN IV Q8 HRS IVF NS @ 50 ML/HR MAG-OX PO TID K-DUR PO QD KEPPRA PO Q12 HRS MED SURG STATUS DCP;FROM [facility]
[2019-12-16 16:00] VITALS: BP 134/74
--- NOTE | 2019-12-16 19:22 | NUR ---
HAND-OFF: Report given to Angely JIMENEZ.
--- NOTE | 2019-12-16 19:40 | NUR ---
NURSE NOTES: Report received from BARBARA Fowler. AAOx 2, on venturi mask 10L. Pt has SOB noted. Right femoral PICC line patent and intact. New inserted [place] earlier leaking little bit. Bilateral soft restraints in place. HOB elevated, isolation maintained. Bed low and locked, side rails up x2, alarm on, call light within reach, will continue to monitor.
[2019-12-16 20:00] VITALS: BP 144/95
--- NOTE | 2019-12-16 20:44 | Progress Note ---
DATE: 12/16/2019 SUBJECTIVE: The patient is a 69-year-old male with altered mental status. Patient is confused, disorganized. He has , sepsis, confusion, altered mental status, decline in cognition below his baseline that is why his attending has requested daily psychiatric consultation. MENTAL STATUS EXAMINATION: This is a 69-year-old male. Appearance is disheveled. Attitude irritable and agitated. Affect, guarded and restricted. Intellect poor. Mood, depressed and anxious. Motor activity, psychomotor agitation. Insight and judgment is poor. DIAGNOSIS: Major depressive disorder, mild, recurrent with psychotic features, rule out dementia with psychosis. PLAN: Neurontin 300 mg p.o. q.8 hours, Ativan 1 IV every 6 hours p.r.n. anxiety and agitation, Namenda 5 mg daily. A 20 minutes of reality-based supportive psychotherapy. A 20 minutes of cognitive behavioral therapy to help him identify his automatic negative thoughts, help him convert his negative thoughts to more positive thoughts to reduce depression, anxiety, mood lability. Chart reviewed and discussed with staff. Seen and assessed at beside. Mirna Adkins M.D. DR: Blake JOB#: [id number] CC:
[2019-12-16] MEDS: Dyna-Hex 2% Top Sol 2oz TOPIC SCH (20:45)
[2019-12-16] MEDS: Furosemide 40mg tab ORAL SCH (20:51)
--- NOTE | 2019-12-16 22:37 | NUR ---
NURSE NOTES: O2 Sat 87% noted with venturi mask Fio2 30%. Called RT and adjusted 55%. O2 Sat 93% noted.
[2019-12-17] VITALS: BP 144/94
[2019-12-17 03:53] LABS: HEMATOCRIT 32.2 % (42.0-52.0); HEMOGLOBIN 10.9 G/DL (14.2-18.0); MEAN CORPUSCULAR VOLUME 86 FL (80-99); PLATELET COUNT 126 K/UL (150-450); RED BLOOD COUNT 3.76 M/UL (4.70-6.10); RED CELL DISTRIBUTION WIDTH 11.3 % (11.6-14.8); WHITE BLOOD COUNT 11.9 K/UL (4.8-10.8)
[2019-12-17 04:00] VITALS: BP 151/90
[2019-12-17 04:03] LABS: ANION GAP 9 mmol/L (5-15); BLOOD UREA NITROGEN 19 mg/dL (7-18); CALCIUM 8.3 MG/DL (8.5-10.1); CARBON DIOXIDE 29 MMOL/L (21-32); CHLORIDE 108 MMOL/L (98-107); CREATININE 0.9 MG/DL (0.55-1.30); POTASSIUM 3.9 MMOL/L (3.5-5.1); SODIUM 146 MMOL/L (136-145)
[2019-12-17] MEDS: Piperacillin/Tazobactam 3.375 GM in NS 110 ML IVPB SCH ×3 (06:20→21:18)
--- NOTE | 2019-12-17 07:28 | NUR ---
HAND-OFF: Report given to BARBARA Frias.
--- NOTE | 2019-12-17 07:50 | NUR ---
NURSE NOTES: pt is in the bed asleep. respiration is even and non-labored with O2 via venturi mask. HOB elevated. no facial grimacing for pain and discomfort noted. no acute distress noted. place call light within reach, will continue to monitor pt.
--- NOTE | 2019-12-17 08:46 | NUR ---
NURSE NOTES: pt refuses PO medications, explains the benefits of medications, pt remains non-compliant.
[2019-12-17] MEDS: NS IVPB SCH ×2 (08:49→21:18)
[2019-12-17] MEDS: METHYLPREDNISOLONE SOD SUCC IVPB SCH ×2 (08:49→21:18)
[2019-12-17] MEDS: Furosemide 40mg tab ORAL SCH ×2 (08:50→21:17)
[2019-12-17] MEDS: Phospha 250 Neutral tab ORAL SCH ×3 (08:50→18:06)
[2019-12-17] MEDS: Magnesium Oxide 400mg tab ORAL SCH ×3 (08:50→18:06)
[2019-12-17] MEDS: Memantine 5 MG TAB ORAL SCH (08:50)
--- NOTE | 2019-12-17 09:09 | NUR ---
RADIOLOGY DEPT., CHEST X-RAY DONE.-P.DYE
--- NOTE | 2019-12-17 09:25 | Diagnostic Imaging Report ---
Indication: Abnormal chest sounds Technique: One view of the chest Comparison: 12/15/2019 Findings: Bilateral interstitial and airspace infiltrates are again demonstrated. Appearance is overall unchanged. The heart is borderline enlarged. Right chest pacemaker is again demonstrated. There may be a small left pleural effusion, unchanged Impression: Unchanged, over 2 days, findings as above.
--- NOTE | 2019-12-17 11:28 | Cardiac Electrophysiology PN ---
Assessment/Plan Assessment/Plan 1. S/P Shock due to cardiomyopathy EF 40 and sepsis BNP is 736. On iv Abx by Dr. Sanchez 2. Cardiomyopathy EF 40%. On Coreg 3.125 bid 3. Status post right-sided MERT ICD. 4. History of hypertension 5. History of CVA with residual weakness. 6. COVID-19 PNA, off the vent DW RN DC today Subjective Subjective Covid is positive. In SR with no events in isolation Objective Last 24 Hour Vital Signs Date Time Temp Pulse Resp B/P (MAP) Pulse Ox O2 Delivery O2 Flow Rate FiO2 12/17/19 04:00 96.8 82 40 151/90 (110) 89 12/17/19 00:00 96.6 87 40 144/94 (111) 90 12/16/19 22:10 93 Venturi Mask 14.0 55 12/16/19 21:00 Venturi Mask 14.0 12/16/19 20:46 95 144/95 12/16/19 20:00 98.1 95 38 144/95 (111) 87 12/16/19 16:00 98.6 88 32 134/74 (94) 94 12/16/19 14:15 92 Venturi Mask 8.0 40 12/16/19 12:00 98.3 98 32 136/62 (86) 91 Intake and Output 12/16/19 12/17/19 19:00 07:00 Intake Total 1096.0 ml Balance 1096.0 ml IV Total 1096.0 ml Laboratory Tests Test 12/16/19 16:31 12/17/19 03:00 Arterial Blood pH 7.486 (7.350-7.450) Arterial Blood Partial Pressure CO2 36.4 mmHg (35.0-45.0) Arterial Blood Partial Pressure O2 53.5 mmHg (75.0-100.0) L Arterial Blood HCO3 26.9 mmol/L (22.0-26.0) H Arterial Blood Oxygen Saturation 86.3 % (95-100) *L Arterial Blood Base Excess 3.5 (-2-2) H Devyn Test Positive White Blood Count 11.9 K/UL (4.8-10.8) H Red Blood Count 3.76 M/UL (4.70-6.10) L Hemoglobin 10.9 G/DL (14.2-18.0) L Hematocrit 32.2 % (42.0-52.0) L Mean Corpuscular Volume 86 FL (80-99) Mean Corpuscular Hemoglobin 28.9 PG (27.0-31.0) Mean Corpuscular Hemoglobin Concent 33.8 G/DL (32.0-36.0) Red Cell Distribution Width 11.3 % (11.6-14.8) L Platelet Count 126 K/UL (150-450) L Mean Platelet Volume 8.6 FL (6.5-10.1) Neutrophils (%) (Auto) % (45.0-75.0) Lymphocytes (%) (Auto) % (20.0-45.0) Monocytes (%) (Auto) % (1.0-10.0) Eosinophils (%) (Auto) % (0.0-3.0) Basophils (%) (Auto) % (0.0-2.0) Sodium Level 146 MMOL/L (136-145) H Potassium Level 3.9 MMOL/L (3.5-5.1) Chloride Level 108 MMOL/L (98-107) H Carbon Dioxide Level 29 MMOL/L (21-32) Anion Gap 9 mmol/L (5-15) Blood Urea Nitrogen 19 mg/dL (7-18) H Creatinine 0.9 MG/DL (0.55-1.30) Estimat Glomerular Filtration Rate > 60 mL/min (>60) Glucose Level 264 MG/DL (74-106) H Calcium Level 8.3 MG/DL (8.5-10.1) L Microbiology Date/Time Source Procedure Growth Status 12/15/19 14:45 Blood Blood Culture - Preliminary NO GROWTH AFTER 24 HOURS Resulted 12/15/19 14:45 Blood Blood Culture - Preliminary NO GROWTH AFTER 24 HOURS Resulted Objective HEAD AND NECK: Mild JVD. LUNGS: Decreased breath sounds. CARDIOVASCULAR: Regular S1 and S2 with no gallop. ABDOMEN: Soft. EXTREMITIES: 1+ pitting edema. Defibrillator is in right subclavian. Shai Bullard MD December 17, 2019 11:28
[2019-12-17 12:00] VITALS: BP 135/98
--- NOTE | 2019-12-17 12:41 | General Progress Note ---
Assessment/Plan Problem List: (1) Suspected COVID-19 virus infection ICD Codes: Z20.828 - Contact with and (suspected) exposure to other viral communicable diseases SNOMED: 917597588 (2) Anemia ICD Codes: D64.9 - Anemia, unspecified SNOMED: 859279463 (3) Weak ICD Codes: R53.1 - Weakness SNOMED: 26760832 (4) COPD (chronic obstructive pulmonary disease) ICD Codes: J44.9 - Chronic obstructive pulmonary disease, unspecified SNOMED: 84127887 (5) Diabetes ICD Codes: E11.9 - Type 2 diabetes mellitus without complications SNOMED: 07560298 (6) Epileptic seizure, generalized ICD Codes: G40.309 - Generalized idiopathic epilepsy and epileptic syndromes, not intractable, without status epilepticus SNOMED: 76289720 (7) Altered mental status ICD Codes: R41.82 - Altered mental status, unspecified SNOMED: 401117149 Qualifiers: Qualified Codes: R41.82 - Altered mental status, unspecified (8) Hypotension ICD Codes: I95.9 - Hypotension, unspecified SNOMED: 51828409 Qualifiers: Qualified Codes: I95.9 - Hypotension, unspecified (9) UTI (urinary tract infection) ICD Codes: N39.0 - Urinary tract infection, site not specified SNOMED: 66907548 Status: unchanged Assessment/Plan: o2 pulm tx abx pt diet cbc bmp am aru eval Subjective Constitutional: Reports: weakness Allergies: Coded Allergies: No Known Allergies (Unverified , 07/28/14) All Systems: reviewed and negative except above Subjective sleepy calm in bed Objective Last 24 Hour Vital Signs Date Time Temp Pulse Resp B/P (MAP) Pulse Ox O2 Delivery O2 Flow Rate FiO2 12/17/19 12:00 97.5 80 20 135/98 (110) 92 12/17/19 04:00 96.8 82 40 151/90 (110) 89 12/17/19 00:00 96.6 87 40 144/94 (111) 90 12/16/19 22:10 93 Venturi Mask 14.0 55 12/16/19 21:00 Venturi Mask 14.0 12/16/19 20:46 95 144/95 12/16/19 20:00 98.1 95 38 144/95 (111) 87 12/16/19 16:00 98.6 88 32 134/74 (94) 94 12/16/19 14:15 92 Venturi Mask 8.0 40 Intake and Output 12/16/19 12/17/19 19:00 07:00 Intake Total 1096.0 ml Balance 1096.0 ml IV Total 1096.0 ml Laboratory Tests 12/16/19 16:31: Arterial Blood pH 7.486H, Arterial Blood Partial Pressure CO2 36.4, Arterial Blood Partial Pressure O2 53.5L, Arterial Blood HCO3 26.9H, Arterial Blood Oxygen Saturation 86.3*L, Arterial Blood Base Excess 3.5H, Devyn Test Positive 12/17/19 03:00: White Blood Count 11.9H, Red Blood Count 3.76L, Hemoglobin 10.9L, Hematocrit 32.2L, Mean Corpuscular Volume 86, Mean Corpuscular Hemoglobin 28.9, Mean Corpuscular Hemoglobin Concent 33.8, Red Cell Distribution Width 11.3L, Platelet Count 126L, Mean Platelet Volume 8.6, Neutrophils (%) (Auto) , Lymphocytes (%) (Auto) , Monocytes (%) (Auto) , Eosinophils (%) (Auto) , Basophils (%) (Auto) , Sodium Level 146H, Potassium Level 3.9, Chloride Level 108H, Carbon Dioxide Level 29, Anion Gap 9, Blood Urea Nitrogen 19H, Creatinine 0.9, Estimat Glomerular Filtration Rate > 60, Glucose Level 264H, Calcium Level 8.3L Height (Feet): 5 Height (Inches): 8.00 Weight (Pounds): 176 General Appearance: lethargic EENT: normal ENT inspection Neck: normal alignment Cardiovascular: normal rate, regular rhythm Respiratory/Chest: no respiratory distress, no accessory muscle use Extremities: normal inspection Skin: normal pigmentation Tee Novoag December 17, 2019 12:41
--- NOTE | 2019-12-17 12:47 | NUR ---
RD ASSESSMENT & RECOMMENDATIONS SEE CARE ACTIVITY FOR COMPLETE ASSESSMENT DAILY ESTIMATED NEEDS: Needs based on Cardiac 74kg abw 25-30 kcals/kg 1124-7838 total kcals 1-1.2 g protein/kg 74-89 g total protein 25-30 mL/kg 3308-2891 total fluid mLs NUTRITION DIAGNOSIS: Altered nutrition related lab values r/t clinical status as evidenced by elev BG (174-264), febrile (tmax 101.5, now afebrile) CURRENT DIET: CLD PO DIET RECOMMENDATIONS: Advance as able to Low Na / texture per CALKER ADDITIONAL RECOMMENDATIONS: 1) Check A1C -> pt w/elev BG (146-175) 2) Add ensure Clear w/ CLD-> advance diet as able 3) Monitor ICU status, respiratory status-> now med surg 4) Obtain a calibrated bed scale wt 5) Rec CALKER eval prior to advancing diet -> pt now CLD x10 days -> Consult RD if non oral feeds are part of POC
[2019-12-17] MEDS: Vancomycin 750mg/NS 275ml IVPB SCH ×2 (13:33)
--- NOTE | 2019-12-17 13:40 | Nephrology Progress Note ---
Assessment/Plan Problem List: (1) Electrolyte imbalance (2) Suspected COVID-19 virus infection (3) Hypotension (4) Sepsis Assessment Patient's current problem from renal standpoint of view is hypokalemia and other electrolyte imbalances His other conditions: Patient presented with acute renal failure however it is now resolved Patient presented with septic shock was on pressors however now resolved Sepsis leukocytosis improving Patient has COVID-19 pneumonia Hypertension Cardiomyopathy status post AICD Previous CVA with right residual weakness Seizure disorders Plan Stable from renal standpoint of view Stop IV fluids Start oral potassium, magnesium, phosphorus supplements We will continue to monitor electrolytes and chemistries Continue per consultants Per orders Subjective ROS Limited/Unobtainable: No Objective Objective Last 24 Hour Vital Signs Date Time Temp Pulse Resp B/P (MAP) Pulse Ox O2 Delivery O2 Flow Rate FiO2 12/17/19 12:00 97.5 80 20 135/98 (110) 92 12/17/19 04:00 96.8 82 40 151/90 (110) 89 12/17/19 00:00 96.6 87 40 144/94 (111) 90 12/16/19 22:10 93 Venturi Mask 14.0 55 12/16/19 21:00 Venturi Mask 14.0 12/16/19 20:46 95 144/95 12/16/19 20:00 98.1 95 38 144/95 (111) 87 12/16/19 16:00 98.6 88 32 134/74 (94) 94 12/16/19 14:15 92 Venturi Mask 8.0 40 Intake and Output 12/16/19 12/17/19 19:00 07:00 Intake Total 1096.0 ml Balance 1096.0 ml IV Total 1096.0 ml Laboratory Tests 12/16/19 16:31: Arterial Blood pH 7.486H, Arterial Blood Partial Pressure CO2 36.4, Arterial Blood Partial Pressure O2 53.5L, Arterial Blood HCO3 26.9H, Arterial Blood Oxygen Saturation 86.3*L, Arterial Blood Base Excess 3.5H, Devyn Test Positive 12/17/19 03:00: White Blood Count 11.9H, Red Blood Count 3.76L, Hemoglobin 10.9L, Hematocrit 32.2L, Mean Corpuscular Volume 86, Mean Corpuscular Hemoglobin 28.9, Mean Corpuscular Hemoglobin Concent 33.8, Red Cell Distribution Width 11.3L, Platelet Count 126L, Mean Platelet Volume 8.6, Neutrophils (%) (Auto) , Lymphocytes (%) (Auto) , Monocytes (%) (Auto) , Eosinophils (%) (Auto) , Basophils (%) (Auto) , Sodium Level 146H, Potassium Level 3.9, Chloride Level 108H, Carbon Dioxide Level 29, Anion Gap 9, Blood Urea Nitrogen 19H, Creatinine 0.9, Estimat Glomerular Filtration Rate > 60, Glucose Level 264H, Calcium Level 8.3L Height (Feet): 5 Height (Inches): 8.00 Weight (Pounds): 176 General Appearance: no apparent distress Cardiovascular: tachycardia Respiratory/Chest: decreased breath sounds Abdomen: distended Objective No change Ed Vega MD December 17, 2019 13:40
--- NOTE | 2019-12-17 15:57 | Infectious Diseases Prog Note ---
Assessment/Plan Assessment/Plan Assessment: Septic shock-SP Fever; improving Mild leukocytosis, improving -12/14 u/a wbc 15-20, nit neg, leuk +1; ucx p Bcx NTD -u/a neg -Bcx Neg Probable PNA- 2ry to COVID19 (from [place] with confirmed cases) Acute hypoxic respiratory failure- was on NC, now on VM- increasing FIo2 requiremetns -12/16 CXR: Bilateral interstitial and airspace infiltrates are again demonstrated.Appearance is overall unchanged. There may be a small left pleural effusion,unchange -12/15 CRP 41.6, ferritin 1468 -12/14 CXR: . Worsening bilateral interstitial and airspace opacities. Probable small left pleural effusion. Difficult to evaluate the right costophrenic angle due to overlying pacemaker. -12/11 CXR: Slightly improved bilateral interstitial and airspace infiltrates versus edema -12/09 CXR: Bilateral mid and lower lung interstitial disease, new since prior study.Possible developing left pleural effusion Ferritn >2000, CRP 22.3 -12/05 SARS-COV2 PCR + -CXR: Left basilar atelectasis and/or infiltrate TRAE, improving HTN cadiomyopathy s/p AICD CVA x3 w/ residual R side weakness [facility] Plan: -Continue empiric Zosyn #3 and add IV Vancomycin #2 -Continue Solumedrol 40mg IV 12hrs x 5days (12/15-) - (day 10 of illness and worsening; around this time is seen the worsening of COVID19 pts mainly driven by inflammatory response) -12/10 SP Cefepime #6 -12/08 SP IV Vancomycin #4 -f/u cx -Monitor CBC/CMP, temperatures -COVID 19 precautions -clarify goals of care -aspiration precautions -inflamatory markers -f/u cx Thank you for consulting [facility]. Will continue to follow along with you. Discussed with RN, Subjective Allergies: Coded Allergies: No Known Allergies (Unverified , 07/28/14) Subjective afebrile >24hrs on venturi mask 55%, 14L wbc improving Objective Vital Signs Last 24 Hour Vital Signs Date Time Temp Pulse Resp B/P (MAP) Pulse Ox O2 Delivery O2 Flow Rate FiO2 12/17/19 12:00 97.5 80 20 135/98 (110) 92 5/5/20 04:00 96.8 82 40 151/90 (110) 89 12/17/19 00:00 96.6 87 40 144/94 (111) 90 12/16/19 22:10 93 Venturi Mask 14.0 55 12/16/19 21:00 Venturi Mask 14.0 12/16/19 20:46 95 144/95 12/16/19 20:00 98.1 95 38 144/95 (111) 87 12/16/19 16:00 98.6 88 32 134/74 (94) 94 Height (Feet): 5 Height (Inches): 8.00 Weight (Pounds): 176 Objective not examined to limit COVID19 exposure Microbiology Date/Time Source Procedure Growth Status 12/15/19 14:45 Blood Blood Culture - Preliminary NO GROWTH AFTER 24 HOURS Resulted 12/15/19 14:45 Blood Blood Culture - Preliminary NO GROWTH AFTER 24 HOURS Resulted Laboratory Tests Test 12/16/19 16:31 12/17/19 03:00 Arterial Blood pH 7.486 (7.350-7.450) Arterial Blood Partial Pressure CO2 36.4 mmHg (35.0-45.0) Arterial Blood Partial Pressure O2 53.5 mmHg (75.0-100.0) L Arterial Blood HCO3 26.9 mmol/L (22.0-26.0) H Arterial Blood Oxygen Saturation 86.3 % (95-100) *L Arterial Blood Base Excess 3.5 (-2-2) H Devyn Test Positive White Blood Count 11.9 K/UL (4.8-10.8) H Red Blood Count 3.76 M/UL (4.70-6.10) L Hemoglobin 10.9 G/DL (14.2-18.0) L Hematocrit 32.2 % (42.0-52.0) L Mean Corpuscular Volume 86 FL (80-99) Mean Corpuscular Hemoglobin 28.9 PG (27.0-31.0) Mean Corpuscular Hemoglobin Concent 33.8 G/DL (32.0-36.0) Red Cell Distribution Width 11.3 % (11.6-14.8) L Platelet Count 126 K/UL (150-450) L Mean Platelet Volume 8.6 FL (6.5-10.1) Neutrophils (%) (Auto) % (45.0-75.0) Lymphocytes (%) (Auto) % (20.0-45.0) Monocytes (%) (Auto) % (1.0-10.0) Eosinophils (%) (Auto) % (0.0-3.0) Basophils (%) (Auto) % (0.0-2.0) Sodium Level 146 MMOL/L (136-145) H Potassium Level 3.9 MMOL/L (3.5-5.1) Chloride Level 108 MMOL/L (98-107) H Carbon Dioxide Level 29 MMOL/L (21-32) Anion Gap 9 mmol/L (5-15) Blood Urea Nitrogen 19 mg/dL (7-18) H Creatinine 0.9 MG/DL (0.55-1.30) Estimat Glomerular Filtration Rate > 60 mL/min (>60) Glucose Level 264 MG/DL (74-106) H Calcium Level 8.3 MG/DL (8.5-10.1) L Current Medications Medications (Trade) Dose Ordered Sig/Wiley Route PRN Reason Start Time Stop Time Status Last Admin Dose Admin Acetaminophen (Tylenol) 650 mg Q6H PRN ORAL Temp >100.5 12/11/19 14:45 01/07/20 08:44 12/14/19 21:01 Acetaminophen (Tylenol) 650 mg Q6H PRN RECTAL Temp >100.5 12/15/19 10:15 01/14/20 10:14 12/15/19 16:59 Carvedilol (Coreg) 3.125 mg EVERY 12 HOURS ORAL 12/11/19 21:00 01/10/20 20:59 12/16/19 20:46 Chlorhexidine Gluconate (Milagro-Hex 2%) 1 applic DAILY@1999 TOPIC 12/11/19 20:00 03/06/20 19:59 12/16/19 20:45 Furosemide (Lasix) 40 mg EVERY 12 HOURS ORAL 12/16/19 21:00 01/15/20 20:59 12/16/19 20:51 Gabapentin (Neurontin) 300 mg Q8HR ORAL 12/11/19 22:00 01/06/20 00:00 12/17/19 13:18 Levetiracetam (Keppra) 1,000 mg Q12HR ORAL 12/11/19 21:00 01/06/20 00:00 12/16/19 20:45 Lorazepam (Ativan 2mg/ml 1ml) 1 mg Q6H PRN IV For Anxiety 12/11/19 14:30 12/18/19 14:29 12/16/19 10:04 Magnesium Oxide (Mag-Ox 400mg) 400 mg THREE TIMES A DAY ORAL 12/14/19 18:00 01/13/20 17:59 12/17/19 13:18 Memantine (Namenda) 5 mg DAILY ORAL 12/12/19 09:00 01/06/20 16:59 12/16/19 10:03 Methylprednisolone Sodium Succinate 40 mg/Sodium Chloride 111 ml @ 111 mls/hr EVERY 12 HOURS IVPB 12/16/19 14:00 12/21/19 13:59 12/16/19 20:45 Phosphorus (Phospha 250 Neutral) 500 mg THREE TIMES A DAY ORAL 12/14/19 10:15 01/13/20 10:14 12/17/19 13:18 Piperacillin Sod/ Tazobactam Sod 3.375 gm/Sodium Chloride 110 ml @ 27.5 mls/hr EVERY 8 HOURS IVPB 12/15/19 14:00 12/20/19 13:59 12/17/19 13:33 Potassium Chloride (K-Dur) 40 meq DAILY ORAL 12/14/19 10:15 03/13/20 10:14 12/16/19 10:03 Sodium Chloride 1,000 ml @ 50 mls/hr Q20H IV 12/15/19 22:30 01/14/20 22:29 12/15/19 22:39 Vancomycin HCl (Vanco rx to dose) 1 ea DAILY PRN MISC Per rx protocol 12/16/19 12:30 01/15/20 12:29 Vancomycin HCl 750 mg/Sodium Chloride 275 ml @ 183.333 mls/hr Q12H IVPB 12/17/19 02:00 12/22/19 01:59 12/17/19 13:33 Sujatha Sanchez M.D. December 17, 2019 15:57
[2019-12-17 16:00] VITALS: BP 138/94
--- NOTE | 2019-12-17 17:01 | Pulmonology Progress Note ---
Assessment/Plan Assessment/Plan IMPRESSION: 1. Cardiomyopathy. 2. Hypotension. 3. Left lung pneumonia. 4. [facility]. 5. Positive COVID-19. DISCUSSION: 1. Continue isolation 2. Continue current medications. 3. Off pressors. 4. Continue O2 5. Pulmonary hygiene. 6. Broad-spectrum antibiotics. 7. I will follow. 8. Transferred to med-surg 9. Will diurese today Mike Montalvo M.D. Subjective ROS Limited/Unobtainable: No Interval Events: Tachypnic yesterday; afebrile Constitutional: Reports: no symptoms Respiratory: Reports: no symptoms Cardiovascular: Reports: no symptoms Gastrointestinal/Abdominal: Reports: no symptoms Genitourinary: Reports: no symptoms Neurologic: Reports: no symptoms Allergies: Coded Allergies: No Known Allergies (Unverified , 07/28/14) All Systems: reviewed and negative except above Objective Last 24 Hour Vital Signs Date Time Temp Pulse Resp B/P (MAP) Pulse Ox O2 Delivery O2 Flow Rate FiO2 12/17/19 16:00 97.9 86 20 138/94 (109) 92 12/17/19 12:00 97.5 80 20 135/98 (110) 92 12/17/19 04:00 96.8 82 40 151/90 (110) 89 12/17/19 00:00 96.6 87 40 144/94 (111) 90 12/16/19 22:10 93 Venturi Mask 14.0 55 12/16/19 21:00 Venturi Mask 14.0 12/16/19 20:46 95 144/95 12/16/19 20:00 98.1 95 38 144/95 (111) 87 Intake and Output 12/16/19 12/17/19 19:00 07:00 Intake Total 1096.0 ml Balance 1096.0 ml IV Total 1096.0 ml General Appearance: no acute distress HEENT: normocephalic Respiratory/Chest: chest wall non-tender, lungs clear Cardiovascular: normal peripheral pulses Abdomen: normal bowel sounds Microbiology Date/Time Source Procedure Growth Status 12/15/19 14:45 Blood Blood Culture - Preliminary NO GROWTH AFTER 24 HOURS Resulted 12/15/19 14:45 Blood Blood Culture - Preliminary NO GROWTH AFTER 24 HOURS Resulted Laboratory Tests 12/17/19 03:00: White Blood Count 11.9H, Red Blood Count 3.76L, Hemoglobin 10.9L, Hematocrit 32.2L, Mean Corpuscular Volume 86, Mean Corpuscular Hemoglobin 28.9, Mean Corpuscular Hemoglobin Concent 33.8, Red Cell Distribution Width 11.3L, Platelet Count 126L, Mean Platelet Volume 8.6, Neutrophils (%) (Auto) , Lymphocytes (%) (Auto) , Monocytes (%) (Auto) , Eosinophils (%) (Auto) , Basophils (%) (Auto) , Sodium Level 146H, Potassium Level 3.9, Chloride Level 108H, Carbon Dioxide Level 29, Anion Gap 9, Blood Urea Nitrogen 19H, Creatinine 0.9, Estimat Glomerular Filtration Rate > 60, Glucose Level 264H, Calcium Level 8.3L Current Medications Medications (Trade) Dose Ordered Sig/Wiley Route PRN Reason Start Time Stop Time Status Last Admin Dose Admin Acetaminophen (Tylenol) 650 mg Q6H PRN ORAL Temp >100.5 12/11/19 14:45 01/07/20 08:44 12/14/19 21:01 Acetaminophen (Tylenol) 650 mg Q6H PRN RECTAL Temp >100.5 12/15/19 10:15 01/14/20 10:14 12/15/19 16:59 Carvedilol (Coreg) 3.125 mg EVERY 12 HOURS ORAL 12/11/19 21:00 01/10/20 20:59 12/16/19 20:46 Chlorhexidine Gluconate (Milagro-Hex 2%) 1 applic DAILY@1999 TOPIC 12/11/19 20:00 03/06/20 19:59 12/16/19 20:45 Furosemide (Lasix) 40 mg EVERY 12 HOURS ORAL 12/16/19 21:00 01/15/20 20:59 12/16/19 20:51 Gabapentin (Neurontin) 300 mg Q8HR ORAL 12/11/19 22:00 01/06/20 00:00 12/17/19 13:18 Levetiracetam (Keppra) 1,000 mg Q12HR ORAL 12/11/19 21:00 01/06/20 00:00 12/16/19 20:45 Lorazepam (Ativan 2mg/ml 1ml) 1 mg Q6H PRN IV For Anxiety 12/11/19 14:30 12/18/19 14:29 12/16/19 10:04 Magnesium Oxide (Mag-Ox 400mg) 400 mg THREE TIMES A DAY ORAL 12/14/19 18:00 01/13/20 17:59 12/17/19 13:18 Memantine (Namenda) 5 mg DAILY ORAL 12/12/19 09:00 01/06/20 16:59 12/16/19 10:03 Methylprednisolone Sodium Succinate 40 mg/Sodium Chloride 111 ml @ 111 mls/hr EVERY 12 HOURS IVPB 12/16/19 14:00 12/21/19 13:59 12/16/19 20:45 Phosphorus (Phospha 250 Neutral) 500 mg THREE TIMES A DAY ORAL 12/14/19 10:15 01/13/20 10:14 12/17/19 13:18 Piperacillin Sod/ Tazobactam Sod 3.375 gm/Sodium Chloride 110 ml @ 27.5 mls/hr EVERY 8 HOURS IVPB 12/15/19 14:00 12/20/19 13:59 12/17/19 13:33 Potassium Chloride (K-Dur) 40 meq DAILY ORAL 12/14/19 10:15 03/13/20 10:14 12/16/19 10:03 Sodium Chloride 1,000 ml @ 50 mls/hr Q20H IV 12/15/19 22:30 01/14/20 22:29 12/15/19 22:39 Vancomycin HCl (Vanco rx to dose) 1 ea DAILY PRN MISC Per rx protocol 12/16/19 12:30 01/15/20 12:29 Vancomycin HCl 750 mg/Sodium Chloride 275 ml @ 183.333 mls/hr Q12H IVPB 12/17/19 02:00 12/22/19 01:59 12/17/19 13:33 Mike Montalvo MD December 17, 2019 17:01
--- NOTE | 2019-12-17 17:30 | Progress Note ---
DATE: 12/17/2019 SUBJECTIVE: This is a 69-year-old male with altered mental status, hypertension, and sepsis below his baseline. That is why, his attending has requested daily psychiatric consultation at this time. This patient is a male patient who has altered mental status, confusion, disorganized thought process and he is in the hospital secondary to pyelonephritis. He also has sepsis, COPD, hypertension, rule out COVID-19 infection. MENTAL STATUS EXAMINATION: This is a 69-year old male. Appearance is disheveled. Attitude, irritable and agitated. Affect, guarded and restricted. Intellect poor. Motor activity, psychomotor agitation. Insight and judgment is poor. DIAGNOSIS: Major depressive disorder, mild, recurrent with psychotic features, rule out dementia with psychosis. PLAN: Treat him with Namenda 5 mg daily and Ativan 1 mg IV every 6 hours p.r.n. anxiety and agitation, Neurontin 300 mg q.8h. Twenty minutes of insight-oriented psychotherapy to help him identify his psychiatric illness and medical conditions to help him have better impulse control and behavior on the unit. Twenty minutes of insight-oriented psychotherapy to help him with the impulse control and behavioral management. Chart reviewed. Discussed with staff. Seen and assessed in his room. Mirna Adkins M.D. DR: JANETT JOB#: [id number] CC:
--- NOTE | 2019-12-17 19:10 | NUR ---
HAND-OFF: Report given to Darrin.
[2019-12-17] MEDS: Dyna-Hex 2% Top Sol 2oz TOPIC SCH (19:49)
[2019-12-17 20:00] VITALS: BP 135/87
--- NOTE | 2019-12-17 20:00 | NUR ---
NURSE NOTES: Received patient awake in bed, able to make needs known, on venturi mask 15L, no s/s of acute distress. Bilateral soft wrist restraints on, skin intact underneath. Triple lumen catheter on femoral noted, patent. Bed low and locked, needs attended to at this time.
[2019-12-18] VITALS (7 sets, daily range): BP systolic 128–148; BP diastolic 72–100
[2019-12-18] MEDS: Vancomycin 750mg/NS 275ml IVPB SCH ×2 (01:47)
[2019-12-18] MEDS: Piperacillin/Tazobactam 3.375 GM in NS 110 ML IVPB SCH ×3 (06:05→21:07)
[2019-12-18 06:25] LABS: HEMATOCRIT 31.4 % (42.0-52.0); HEMOGLOBIN 10.5 G/DL (14.2-18.0); MEAN CORPUSCULAR VOLUME 87 FL (80-99); PLATELET COUNT 134 K/UL (150-450); RED BLOOD COUNT 3.61 M/UL (4.70-6.10); RED CELL DISTRIBUTION WIDTH 11.4 % (11.6-14.8); WHITE BLOOD COUNT 14.8 K/UL (4.8-10.8)
--- NOTE | 2019-12-18 07:19 | NUR ---
HAND-OFF: Report given to BARBARA Bran.
--- NOTE | 2019-12-18 07:44 | NUR ---
NURSE NOTES: AM rounds made, pt in the bed awake, and verbally responsive to 1-2 words . no SOB noted at this time with O2 via non-rebreather mask. HOB elevated. No coughing and fever noted. skin is warm and dry to to touch. Call light is within reach.
[2019-12-18 08:57] LABS: ANION GAP 13 mmol/L (5-15); BLOOD UREA NITROGEN 20 mg/dL (7-18); CALCIUM 8.2 MG/DL (8.5-10.1); CARBON DIOXIDE 27 MMOL/L (21-32); CHLORIDE 108 MMOL/L (98-107); CREATININE 0.9 MG/DL (0.55-1.30); POTASSIUM 3.3 MMOL/L (3.5-5.1); SODIUM 148 MMOL/L (136-145)
--- NOTE | 2019-12-18 09:09 | General Progress Note ---
Assessment/Plan Problem List: (1) Suspected COVID-19 virus infection ICD Codes: Z20.828 - Contact with and (suspected) exposure to other viral communicable diseases SNOMED: 946249990 (2) Anemia ICD Codes: D64.9 - Anemia, unspecified SNOMED: 775822847 (3) Weak ICD Codes: R53.1 - Weakness SNOMED: 76586022 (4) COPD (chronic obstructive pulmonary disease) ICD Codes: J44.9 - Chronic obstructive pulmonary disease, unspecified SNOMED: 99723202 (5) Diabetes ICD Codes: E11.9 - Type 2 diabetes mellitus without complications SNOMED: 39914472 (6) Epileptic seizure, generalized ICD Codes: G40.309 - Generalized idiopathic epilepsy and epileptic syndromes, not intractable, without status epilepticus SNOMED: 48336881 (7) Altered mental status ICD Codes: R41.82 - Altered mental status, unspecified SNOMED: 712783319 Qualifiers: Qualified Codes: R41.82 - Altered mental status, unspecified (8) Hypotension ICD Codes: I95.9 - Hypotension, unspecified SNOMED: 89481063 Qualifiers: Qualified Codes: I95.9 - Hypotension, unspecified (9) UTI (urinary tract infection) ICD Codes: N39.0 - Urinary tract infection, site not specified SNOMED: 58669111 Status: unchanged Assessment/Plan: o2 pulm tx abx pt diet cbc bmp am Subjective Constitutional: Reports: weakness Allergies: Coded Allergies: No Known Allergies (Unverified , 07/28/14) All Systems: reviewed and negative except above Subjective sleepy calm in bed Objective Last 24 Hour Vital Signs Date Time Temp Pulse Resp B/P (MAP) Pulse Ox O2 Delivery O2 Flow Rate FiO2 12/18/19 08:00 97.9 83 18 141/92 (108) 94 12/18/19 04:00 98.6 95 18 142/93 (109) 86 12/18/19 00:00 97.4 95 18 128/85 (99) 86 12/17/19 21:56 Venturi Mask 14.0 12/17/19 21:17 86 138/94 12/17/19 20:00 100.1 89 20 135/87 (103) 92 12/17/19 16:00 97.9 86 20 138/94 (109) 92 12/17/19 12:00 97.5 80 20 135/98 (110) 92 Laboratory Tests 12/18/19 01:00: Vancomycin Level Trough 5.7 12/18/19 04:00: White Blood Count 14.8H, Red Blood Count 3.61L, Hemoglobin 10.5L, Hematocrit 31.4L, Mean Corpuscular Volume 87, Mean Corpuscular Hemoglobin 29.2, Mean Corpuscular Hemoglobin Concent 33.6, Red Cell Distribution Width 11.4L, Platelet Count 134L, Mean Platelet Volume 8.5, Neutrophils (%) (Auto) , Lymphocytes (%) (Auto) , Monocytes (%) (Auto) , Eosinophils (%) (Auto) , Basophils (%) (Auto) , Neutrophils % (Manual) [Pending], Lymphocytes % (Manual) [Pending], Platelet Estimate [Pending], Platelet Morphology [Pending], Sodium Level 148H, Potassium Level 3.3L, Chloride Level 108H, Carbon Dioxide Level 27, Anion Gap 13, Blood Urea Nitrogen 20H, Creatinine 0.9, Estimat Glomerular Filtration Rate > 60, Glucose Level 182H, Calcium Level 8.2L, Ferritin [Pending] , C-Reactive Protein, Quantitative 25.5H Height (Feet): 5 Height (Inches): 8.00 Weight (Pounds): 179 General Appearance: lethargic EENT: normal ENT inspection Neck: normal alignment Cardiovascular: normal rate, regular rhythm Respiratory/Chest: no respiratory distress, no accessory muscle use Extremities: normal inspection Skin: normal pigmentation Tee Novoa DO December 18, 2019 09:09
[2019-12-18] MEDS: NS IVPB SCH (09:10)
[2019-12-18] MEDS: METHYLPREDNISOLONE SOD SUCC IVPB SCH (09:10)
[2019-12-18] MEDS: Furosemide 40mg tab ORAL SCH (09:18)
[2019-12-18] MEDS: Phospha 250 Neutral tab ORAL SCH (09:18)
[2019-12-18] MEDS: Magnesium Oxide 400mg tab ORAL SCH ×3 (09:18→18:02)
[2019-12-18] MEDS: Memantine 5 MG TAB ORAL SCH (09:19)
[2019-12-18 09:21] LABS: FERRITIN 1563 NG/ML (8-388)
[2019-12-18] MEDS: Vancomycin 1gm/D5W 275ml IVPB SCH ×4 (09:30→18:02)
--- NOTE | 2019-12-18 11:20 | Pulmonology Progress Note ---
Assessment/Plan Assessment/Plan IMPRESSION: 1. Cardiomyopathy. 2. Hypotension. 3. Left lung pneumonia. 4. [facility] resident. 5. Positive COVID-19. DISCUSSION: 1. Continue isolation 2. Continue current medications. 3. Off pressors. 4. Continue O2 5. Pulmonary hygiene. 6. Broad-spectrum antibiotics. 7. I will follow. 8. Transferred to med-surg 9. Will diurese today Mike Montalvo M.D. Subjective ROS Limited/Unobtainable: No Interval Events: Tachypnic yesterday; afebrile Constitutional: Reports: no symptoms Respiratory: Reports: no symptoms Cardiovascular: Reports: no symptoms Gastrointestinal/Abdominal: Reports: no symptoms Genitourinary: Reports: no symptoms Neurologic: Reports: no symptoms Allergies: Coded Allergies: No Known Allergies (Unverified , 07/28/14) All Systems: reviewed and negative except above Objective Last 24 Hour Vital Signs Date Time Temp Pulse Resp B/P (MAP) Pulse Ox O2 Delivery O2 Flow Rate FiO2 12/18/19 09:19 83 141/92 12/18/19 08:00 97.9 83 18 141/92 (108) 94 12/18/19 04:00 98.6 95 18 142/93 (109) 86 12/18/19 00:00 97.4 95 18 128/85 (99) 86 12/17/19 21:56 Venturi Mask 14.0 12/17/19 21:17 86 138/94 12/17/19 20:00 100.1 89 20 135/87 (103) 92 12/17/19 16:00 97.9 86 20 138/94 (109) 92 12/17/19 12:00 97.5 80 20 135/98 (110) 92 General Appearance: no acute distress HEENT: normocephalic Respiratory/Chest: chest wall non-tender, lungs clear Cardiovascular: normal peripheral pulses Abdomen: normal bowel sounds Microbiology Date/Time Source Procedure Growth Status 12/15/19 14:45 Blood Blood Culture - Preliminary NO GROWTH AFTER 48 HOURS Resulted 12/15/19 14:45 Blood Blood Culture - Preliminary NO GROWTH AFTER 48 HOURS Resulted Laboratory Tests 12/18/19 01:00: Vancomycin Level Trough 5.7 12/18/19 04:00: White Blood Count 14.8H, Red Blood Count 3.61L, Hemoglobin 10.5L, Hematocrit 31.4L, Mean Corpuscular Volume 87, Mean Corpuscular Hemoglobin 29.2, Mean Corpuscular Hemoglobin Concent 33.6, Red Cell Distribution Width 11.4L, Platelet Count 134L, Mean Platelet Volume 8.5, Neutrophils (%) (Auto) , Lymphocytes (%) (Auto) , Monocytes (%) (Auto) , Eosinophils (%) (Auto) , Basophils (%) (Auto) , Differential Total Cells Counted 100, Neutrophils % ( Manual) 94H, Lymphocytes % (Manual) 4L, Monocytes % (Manual) 2, Eosinophils % ( Manual) 0, Basophils % (Manual) 0, Band Neutrophils 0, Platelet Estimate DecreasedL, Platelet Morphology Normal, Polychromasia 1+, Hypochromasia 1+, Sodium Level 148H, Potassium Level 3.3L, Chloride Level 108H, Carbon Dioxide Level 27, Anion Gap 13, Blood Urea Nitrogen 20H, Creatinine 0.9, Estimat Glomerular Filtration Rate > 60, Glucose Level 182H, Calcium Level 8.2L, Phosphorus Level 3.0, Ferritin 1563H, C-Reactive Protein, Quantitative 25.5H Current Medications Medications (Trade) Dose Ordered Sig/Wiley Route PRN Reason Start Time Stop Time Status Last Admin Dose Admin Acetaminophen (Tylenol) 650 mg Q6H PRN ORAL Temp >100.5 12/11/19 14:45 01/07/20 08:44 12/14/19 21:01 Acetaminophen (Tylenol) 650 mg Q6H PRN RECTAL Temp >100.5 12/15/19 10:15 01/14/20 10:14 12/15/19 16:59 Carvedilol (Coreg) 3.125 mg EVERY 12 HOURS ORAL 12/11/19 21:00 01/10/20 20:59 12/18/19 09:19 Chlorhexidine Gluconate (Milagro-Hex 2%) 1 applic DAILY@1999 TOPIC 12/11/19 20:00 03/06/20 19:59 12/17/19 19:49 Furosemide (Lasix) 40 mg EVERY 12 HOURS ORAL 12/16/19 21:00 01/15/20 20:59 12/18/19 09:18 Gabapentin (Neurontin) 300 mg Q8HR ORAL 12/11/19 22:00 01/06/20 00:00 12/17/19 21:17 Levetiracetam (Keppra) 1,000 mg Q12HR ORAL 12/11/19 21:00 01/06/20 00:00 12/18/19 09:18 Lorazepam (Ativan 2mg/ml 1ml) 1 mg Q6H PRN IV For Anxiety 12/11/19 14:30 12/18/19 14:29 12/16/19 10:04 Magnesium Oxide (Mag-Ox 400mg) 400 mg THREE TIMES A DAY ORAL 12/14/19 18:00 01/13/20 17:59 12/18/19 09:18 Memantine (Namenda) 5 mg DAILY ORAL 12/12/19 09:00 01/06/20 16:59 12/18/19 09:19 Methylprednisolone Sodium Succinate 40 mg/Sodium Chloride 111 ml @ 111 mls/hr EVERY 12 HOURS IVPB 12/16/19 14:00 12/21/19 13:59 12/18/19 09:10 Piperacillin Sod/ Tazobactam Sod 3.375 gm/Sodium Chloride 110 ml @ 27.5 mls/hr EVERY 8 HOURS IVPB 12/15/19 14:00 12/20/19 13:59 12/18/19 06:05 Potassium Chloride (K-Dur) 40 meq BID ORAL 12/18/19 18:00 03/13/20 10:14 Sodium Chloride 1,000 ml @ 50 mls/hr Q20H IV 12/15/19 22:30 01/14/20 22:29 12/15/19 22:39 Vancomycin HCl (Vanco rx to dose) 1 ea DAILY PRN MISC Per rx protocol 12/16/19 12:30 01/15/20 12:29 Vancomycin HCl 1 gm/Dextrose 275 ml @ 183.708 mls/hr Q8H IVPB 12/18/19 10:00 12/23/19 09:59 12/18/19 09:30 Mike Montalvo MD December 18, 2019 11:20
--- NOTE | 2019-12-18 13:14 | Nephrology Progress Note ---
Assessment/Plan Problem List: (1) Electrolyte imbalance (2) Suspected COVID-19 virus infection (3) Hypotension Assessment: Resolved (4) Sepsis Assessment Patient's current problem from renal standpoint of view is hypokalemia and other electrolyte imbalances His other conditions: Patient presented with acute renal failure however it is now resolved Patient presented with septic shock was on pressors however now resolved Sepsis leukocytosis improving Patient has COVID-19 pneumonia Hypertension Cardiomyopathy status post AICD Previous CVA with right residual weakness Seizure disorders Plan Stable from renal standpoint of view Stop IV fluids Start oral potassium, magnesium, phosphorus supplements We will continue to monitor electrolytes and chemistries Continue per consultants Per orders Subjective ROS Limited/Unobtainable: No Objective Objective Last 24 Hour Vital Signs Date Time Temp Pulse Resp B/P (MAP) Pulse Ox O2 Delivery O2 Flow Rate FiO2 12/18/19 12:00 97.8 91 17 146/90 (108) 95 12/18/19 09:19 83 141/92 12/18/19 08:00 97.9 83 18 141/92 (108) 94 12/18/19 04:00 98.6 95 18 142/93 (109) 86 12/18/19 00:00 97.4 95 18 128/85 (99) 86 12/17/19 21:56 Venturi Mask 14.0 12/17/19 21:17 86 138/94 12/17/19 20:00 100.1 89 20 135/87 (103) 92 12/17/19 16:00 97.9 86 20 138/94 (109) 92 Laboratory Tests 12/18/19 01:00: Vancomycin Level Trough 5.7 12/18/19 04:00: White Blood Count 14.8H, Red Blood Count 3.61L, Hemoglobin 10.5L, Hematocrit 31.4L, Mean Corpuscular Volume 87, Mean Corpuscular Hemoglobin 29.2, Mean Corpuscular Hemoglobin Concent 33.6, Red Cell Distribution Width 11.4L, Platelet Count 134L, Mean Platelet Volume 8.5, Neutrophils (%) (Auto) , Lymphocytes (%) (Auto) , Monocytes (%) (Auto) , Eosinophils (%) (Auto) , Basophils (%) (Auto) , Differential Total Cells Counted 100, Neutrophils % ( Manual) 94H, Lymphocytes % (Manual) 4L, Monocytes % (Manual) 2, Eosinophils % ( Manual) 0, Basophils % (Manual) 0, Band Neutrophils 0, Platelet Estimate DecreasedL, Platelet Morphology Normal, Polychromasia 1+, Hypochromasia 1+, Sodium Level 148H, Potassium Level 3.3L, Chloride Level 108H, Carbon Dioxide Level 27, Anion Gap 13, Blood Urea Nitrogen 20H, Creatinine 0.9, Estimat Glomerular Filtration Rate > 60, Glucose Level 182H, Calcium Level 8.2L, Phosphorus Level 3.0, Ferritin 1563H, C-Reactive Protein, Quantitative 25.5H Height (Feet): 5 Height (Inches): 8.00 Weight (Pounds): 179 General Appearance: no apparent distress Cardiovascular: tachycardia Respiratory/Chest: decreased breath sounds Abdomen: distended Objective No change Ed Vega MD December 18, 2019 13:14
--- NOTE | 2019-12-18 13:39 | Cardiac Electrophysiology PN ---
Assessment/Plan Assessment/Plan 1. S/P Shock due to cardiomyopathy EF 40 and sepsis. BNP is 736. On iv Abx by Dr. Sanchez 2. CMP EF 40%. On Coreg 3.125 bid and decrease Lasix to 40 po daily. Add Lisinopril 10 daily 3. Status post right-sided MERT ICD. 4. History of hypertension 5. History of CVA with residual weakness. 6. COVID-19 PNA, off the vent 7. Hypernatremia. Change iv lasix to po DW RN Subjective Subjective In Covid isolation. No events Objective Last 24 Hour Vital Signs Date Time Temp Pulse Resp B/P (MAP) Pulse Ox O2 Delivery O2 Flow Rate FiO2 12/18/19 12:00 97.8 91 17 146/90 (108) 95 12/18/19 09:19 83 141/92 12/18/19 08:00 97.9 83 18 141/92 (108) 94 12/18/19 04:00 98.6 95 18 142/93 (109) 86 12/18/19 00:00 97.4 95 18 128/85 (99) 86 12/17/19 21:56 Venturi Mask 14.0 12/17/19 21:17 86 138/94 12/17/19 20:00 100.1 89 20 135/87 (103) 92 12/17/19 16:00 97.9 86 20 138/94 (109) 92 Laboratory Tests Test 12/18/19 01:00 12/18/19 04:00 Vancomycin Level Trough 5.7 ug/mL (5.0-12.0) White Blood Count 14.8 K/UL (4.8-10.8) H Red Blood Count 3.61 M/UL (4.70-6.10) L Hemoglobin 10.5 G/DL (14.2-18.0) L Hematocrit 31.4 % (42.0-52.0) L Mean Corpuscular Volume 87 FL (80-99) Mean Corpuscular Hemoglobin 29.2 PG (27.0-31.0) Mean Corpuscular Hemoglobin Concent 33.6 G/DL (32.0-36.0) Red Cell Distribution Width 11.4 % (11.6-14.8) L Platelet Count 134 K/UL (150-450) L Mean Platelet Volume 8.5 FL (6.5-10.1) Neutrophils (%) (Auto) % (45.0-75.0) Lymphocytes (%) (Auto) % (20.0-45.0) Monocytes (%) (Auto) % (1.0-10.0) Eosinophils (%) (Auto) % (0.0-3.0) Basophils (%) (Auto) % (0.0-2.0) Differential Total Cells Counted 100 Neutrophils % (Manual) 94 % (45-75) H Lymphocytes % (Manual) 4 % (20-45) L Monocytes % (Manual) 2 % (1-10) Eosinophils % (Manual) 0 % (0-3) Basophils % (Manual) 0 % (0-2) Band Neutrophils 0 % (0-8) Platelet Estimate Decreased L Platelet Morphology Normal Polychromasia 1+ Hypochromasia 1+ Sodium Level 148 MMOL/L (136-145) H Potassium Level 3.3 MMOL/L (3.5-5.1) L Chloride Level 108 MMOL/L (98-107) H Carbon Dioxide Level 27 MMOL/L (21-32) Anion Gap 13 mmol/L (5-15) Blood Urea Nitrogen 20 mg/dL (7-18) H Creatinine 0.9 MG/DL (0.55-1.30) Estimat Glomerular Filtration Rate > 60 mL/min (>60) Glucose Level 182 MG/DL (74-106) H Calcium Level 8.2 MG/DL (8.5-10.1) L Phosphorus Level 3.0 MG/DL (2.5-4.9) Ferritin 1563 NG/ML (8-388) H C-Reactive Protein, Quantitative 25.5 mg/dL (0.00-0.90) H Microbiology Date/Time Source Procedure Growth Status 12/15/19 14:45 Blood Blood Culture - Preliminary NO GROWTH AFTER 48 HOURS Resulted 12/15/19 14:45 Blood Blood Culture - Preliminary NO GROWTH AFTER 48 HOURS Resulted Objective HEAD AND NECK: Mild JVD. LUNGS: Decreased breath sounds. CARDIOVASCULAR: Regular S1 and S2 with no gallop. ABDOMEN: Soft. EXTREMITIES: 1+ pitting edema. Defibrillator is in right subclavian. Shai Bullard MD December 18, 2019 13:39
--- NOTE | 2019-12-18 16:11 | NUR ---
CASE MANAGEMENT:REVIEW SI;COVID-19 PNEUMONIA AC HYPOXIC RESPIRATORY FAILURE. SEPTIC SHOCK. 100.1 91 18 146/90 86% 14L VENTURI MASK FIO2 @ 55% WBC 14.8 NA 148 K+ 3.3 BUN 20 CA 8.2 FERRITIN 1563 CRP 25.5 IS;LASIX IV Q12 HRS K-DUR PO BID VANCOMYCIN IV Q8 HRS SOLU MEDROL IV Q12 HRS IVF NS @ 50 ML/HR ZOSYN IV Q8 HRS MAG-OX PO TID COREG PO Q12 HRS ROS-HEX TOP QD MED SURG STATUS DCP;FROM [facility]
--- NOTE | 2019-12-18 17:34 | Infectious Diseases Prog Note ---
Assessment/Plan Assessment/Plan Assessment: Septic shock-SP Fever; improving Mild leukocytosis, increased (s/p steroisd) -12/14 u/a wbc 15-20, nit neg, leuk +1; ucx p Bcx NTD -u/a neg -Bcx Neg Probable PNA- 2ry to COVID19 (from [place] with confirmed cases) Acute hypoxic respiratory failure- was on NC, now on VM- increasing FIo2 requiremetns -12/16 CXR: Bilateral interstitial and airspace infiltrates are again demonstrated.Appearance is overall unchanged. There may be a small left pleural effusion,unchange -12/15 CRP 41.6, ferritin 1468 -12/14 CXR: . Worsening bilateral interstitial and airspace opacities. Probable small left pleural effusion. Difficult to evaluate the right costophrenic angle due to overlying pacemaker. -12/11 CXR: Slightly improved bilateral interstitial and airspace infiltrates versus edema -12/09 CXR: Bilateral mid and lower lung interstitial disease, new since prior study.Possible developing left pleural effusion Ferritn >2000, CRP 22.3 -12/05 SARS-COV2 PCR + -CXR: Left basilar atelectasis and/or infiltrate TRAE, improving HTN cadiomyopathy s/p AICD CVA x3 w/ residual R side weakness seizure disorder [place] resident ([facility]) Plan: -Continue empiric Zosyn #4 and add IV Vancomycin #3 - SPSolumedrol 40mg IV 12hrs x 5days (12/15-12/17); dc'ed by resp ther - ( day 10 of illness and worsening; around this time is seen the worsening of COVID19 pts mainly driven by inflammatory response) -12/10 SP Cefepime #6 -12/08 SP IV Vancomycin #4 -f/u cx -Monitor CBC/CMP, temperatures -COVID 19 precautions -clarify goals of care -aspiration precautions -inflamatory markers -f/u cx Thank you for consulting [facility]. Will continue to follow along with you. Discussed with RN, Subjective Allergies: Coded Allergies: No Known Allergies (Unverified , 07/28/14) Subjective TM 100.4 on venturi mask 55%, 14L wbc increased steroisd were dc Objective Vital Signs Last 24 Hour Vital Signs Date Time Temp Pulse Resp B/P (MAP) Pulse Ox O2 Delivery O2 Flow Rate FiO2 12/18/19 16:00 97.8 82 18 148/72 (97) 95 12/18/19 12:00 97.8 91 17 146/90 (108) 95 12/18/19 09:19 83 141/92 12/18/19 08:00 97.9 83 18 141/92 (108) 94 12/18/19 04:00 98.6 95 18 142/93 (109) 86 12/18/19 00:00 97.4 95 18 128/85 (99) 86 12/17/19 21:56 Venturi Mask 14.0 12/17/19 21:17 86 138/94 12/17/19 20:00 100.1 89 20 135/87 (103) 92 Height (Feet): 5 Height (Inches): 8.00 Weight (Pounds): 179 Objective not examined to limit COVID19 exposure Laboratory Tests Test 12/18/19 01:00 12/18/19 04:00 Vancomycin Level Trough 5.7 ug/mL (5.0-12.0) White Blood Count 14.8 K/UL (4.8-10.8) H Red Blood Count 3.61 M/UL (4.70-6.10) L Hemoglobin 10.5 G/DL (14.2-18.0) L Hematocrit 31.4 % (42.0-52.0) L Mean Corpuscular Volume 87 FL (80-99) Mean Corpuscular Hemoglobin 29.2 PG (27.0-31.0) Mean Corpuscular Hemoglobin Concent 33.6 G/DL (32.0-36.0) Red Cell Distribution Width 11.4 % (11.6-14.8) L Platelet Count 134 K/UL (150-450) L Mean Platelet Volume 8.5 FL (6.5-10.1) Neutrophils (%) (Auto) % (45.0-75.0) Lymphocytes (%) (Auto) % (20.0-45.0) Monocytes (%) (Auto) % (1.0-10.0) Eosinophils (%) (Auto) % (0.0-3.0) Basophils (%) (Auto) % (0.0-2.0) Differential Total Cells Counted 100 Neutrophils % (Manual) 94 % (45-75) H Lymphocytes % (Manual) 4 % (20-45) L Monocytes % (Manual) 2 % (1-10) Eosinophils % (Manual) 0 % (0-3) Basophils % (Manual) 0 % (0-2) Band Neutrophils 0 % (0-8) Platelet Estimate Decreased L Platelet Morphology Normal Polychromasia 1+ Hypochromasia 1+ Sodium Level 148 MMOL/L (136-145) H Potassium Level 3.3 MMOL/L (3.5-5.1) L Chloride Level 108 MMOL/L (98-107) H Carbon Dioxide Level 27 MMOL/L (21-32) Anion Gap 13 mmol/L (5-15) Blood Urea Nitrogen 20 mg/dL (7-18) H Creatinine 0.9 MG/DL (0.55-1.30) Estimat Glomerular Filtration Rate > 60 mL/min (>60) Glucose Level 182 MG/DL (74-106) H Calcium Level 8.2 MG/DL (8.5-10.1) L Phosphorus Level 3.0 MG/DL (2.5-4.9) Ferritin 1563 NG/ML (8-388) H C-Reactive Protein, Quantitative 25.5 mg/dL (0.00-0.90) H Current Medications Medications (Trade) Dose Ordered Sig/Wiley Route PRN Reason Start Time Stop Time Status Last Admin Dose Admin Acetaminophen (Tylenol) 650 mg Q6H PRN ORAL Temp >100.5 12/11/19 14:45 01/07/20 08:44 12/14/19 21:01 Acetaminophen (Tylenol) 650 mg Q6H PRN RECTAL Temp >100.5 12/15/19 10:15 01/14/20 10:14 12/15/19 16:59 Carvedilol (Coreg) 3.125 mg EVERY 12 HOURS ORAL 12/11/19 21:00 01/10/20 20:59 12/18/19 09:19 Chlorhexidine Gluconate (Milagro-Hex 2%) 1 applic DAILY@1999 TOPIC 12/11/19 20:00 03/06/20 19:59 12/17/19 19:49 Furosemide (Lasix) 40 mg DAILY ORAL 12/19/19 09:00 01/18/20 08:59 Gabapentin (Neurontin) 300 mg Q8HR ORAL 12/11/19 22:00 01/06/20 00:00 12/18/19 13:35 Levetiracetam (Keppra) 1,000 mg Q12HR ORAL 12/11/19 21:00 01/06/20 00:00 12/18/19 09:18 Lisinopril (ZestriL) 10 mg DAILY ORAL 12/19/19 09:00 01/18/20 08:59 Magnesium Oxide (Mag-Ox 400mg) 400 mg THREE TIMES A DAY ORAL 12/14/19 18:00 01/13/20 17:59 12/18/19 13:35 Memantine (Namenda) 5 mg DAILY ORAL 12/12/19 09:00 01/06/20 16:59 12/18/19 09:19 Piperacillin Sod/ Tazobactam Sod 3.375 gm/Sodium Chloride 110 ml @ 27.5 mls/hr EVERY 8 HOURS IVPB 12/15/19 14:00 12/20/19 13:59 12/18/19 13:36 Potassium Chloride (K-Dur) 40 meq BID ORAL 12/18/19 18:00 03/13/20 10:14 Vancomycin HCl (Vanco rx to dose) 1 ea DAILY PRN MISC Per rx protocol 12/16/19 12:30 01/15/20 12:29 Vancomycin HCl 1 gm/Dextrose 275 ml @ 183.708 mls/hr Q8H IVPB 12/18/19 10:00 12/23/19 09:59 12/18/19 09:30 Sujatha Sanchez M.D. December 18, 2019 17:34
--- NOTE | 2019-12-18 19:15 | Progress Note ---
DATE: 12/18/2019 SUBJECTIVE: This is a 69-year-old male with altered mental status. He has some confusion, disorganized thought process, decline in cognition below his baseline. That is why, his attending has requested daily psychiatric consultation. DIAGNOSIS: Major depressive disorder, mild, recurrent with psychotic features, rule out dementia with psychosis. PLAN: Treat him with psychotropic medications to stabilize his mood. Twenty minutes of cognitive behavioral therapy to help him identify his automatic negative thoughts, help him convert his negative thoughts to more positive thoughts to reduce depression, anxiety, and mood lability. Chart reviewed. Discussed with staff. Seen and assessed in his room. Mirna Adkins M.D. DR: JANETT JOB#: [id number] CC:
--- NOTE | 2019-12-18 19:27 | NUR ---
HAND-OFF: Report given to Yo.
--- NOTE | 2019-12-18 20:00 | NUR ---
NURSE NOTES: Received patient awake, no SOB, on bilateral soft wrist restraints.
[2019-12-18] MEDS: Dyna-Hex 2% Top Sol 2oz TOPIC SCH (21:06)
[2019-12-19] MEDS: Vancomycin 1gm/D5W 275ml IVPB SCH ×6 (01:50→17:45)
--- NOTE | 2019-12-19 03:30 | Progress Note ---
DATE: 12/16/2019 NOTE: INCOMPLETE DICTATION PSYCHOTHERAPY CONSULTATION PROGRESS NOTE TREATING ATTENDING PHYSICIAN: Tee Novoa D.O. HISTORY OF PRESENT ILLNESS: This is a 69-year-old male patient who was brought to the hospital for altered mental status. The patient was referred for psychotherapeutic services as a result. The patient is confused. Thought process is disorganized. Khloe Arvizu PsyD. DR: Jae JOB#: [id number] CC:
[2019-12-19 04:04] VITALS: BP 138/92
[2019-12-19] MEDS: Piperacillin/Tazobactam 3.375 GM in NS 110 ML IVPB SCH ×3 (04:56→20:47)
--- NOTE | 2019-12-19 07:03 | NUR ---
HAND-OFF: Report given to Rodriguez Bran RN.
[2019-12-19 07:16] LABS: HEMATOCRIT 30.3 % (42.0-52.0); HEMOGLOBIN 9.9 G/DL (14.2-18.0); MEAN CORPUSCULAR VOLUME 87 FL (80-99); PLATELET COUNT 101 K/UL (150-450); RED BLOOD COUNT 3.47 M/UL (4.70-6.10); RED CELL DISTRIBUTION WIDTH 11.8 % (11.6-14.8); WHITE BLOOD COUNT 13.2 K/UL (4.8-10.8)
[2019-12-19 07:19] LABS: ANION GAP 8 mmol/L (5-15); BLOOD UREA NITROGEN 17 mg/dL (7-18); CALCIUM 7.8 MG/DL (8.5-10.1); CARBON DIOXIDE 29 MMOL/L (21-32); CHLORIDE 111 MMOL/L (98-107); CREATININE 0.8 MG/DL (0.55-1.30); POTASSIUM 3.3 MMOL/L (3.5-5.1); SODIUM 148 MMOL/L (136-145)
--- NOTE | 2019-12-19 07:27 | NUR ---
AM report received, RN made rounds, pt is awake in bed, no SOB noted with O2 via venturi mask. pt denies any pain. HOB elevated. no acute distress noted at this time. place call light within reach.
--- NOTE | 2019-12-19 07:30 | Progress Note ---
DATE: 12/18/2019 NOTE: POOR AUDIO. PSYCHOTHERAPY CONSULTATION PROGRESS NOTE TREATING ATTENDING PHYSICIAN: Tee Novoa D.O. HISTORY OF PRESENT ILLNESS: in the chart. The patient is a 69-year-old male patient. The patient was brought into the hospital due to confusion, disorganized, agitation, and for these reasons, he was referred for psychotherapeutic services. He was also altered in his mental status . The patient is confused, disorganized, helpless, and poor historian. He has no logical or viable plan for safety or self care. The patient has been living in [facility], apparently taken to the hospital for treatment. At this time, there is no indication of auditory or visual hallucinations. There is no indication of suicidal or homicidal thoughts of ideation, an extensive review of records . The patient is altered in his mental status, confused. PAST MEDICAL HISTORY: The patient has COPD and diabetes. ALLERGIES: The patient has no known drug allergies. SUBSTANCE ABUSE HISTORY: There is no indication of alcohol use, illicit substance use, or smoking cigarettes. PSYCHIATRIC HISTORY: The patient has a history of psychiatric history. The patient has a history of depression. SOCIAL HISTORY: The patient is a 69-year-old male, the patient is from [facility], financially sustained through [employer]. MENTAL STATUS EXAMINATION: He is alert and oriented to person. His mood is depressed. Affect blunted. Thought process, disorganized with poor attention and concentration. Poor insight, judgment, impulse control. DIAGNOSIS: Rule out major depressive disorder, recurrent moderate without psychotic features. PLAN: Provide the patient with, 1. Reality orientation, which is focused on improving cognitive function of the patient, who is very confused and disorganized. to person, place, time, and situation. 2. Provided the patient with supportive psychotherapy, encouraging the patient to communicate and articulate thoughts utilizing positive communication skills. . At this time, is a poor historian and . Plan is to maintain medication compliance with positive coping skills and stabilizing the thoughts and behavior. PLAN: This clinician has reviewed the patient's chart and discussed treatment with treatment team. Psychotherapy services for the patient provided is 45 minutes. Khloe Arvizu PsyD. DR: Jae JOB#: [id number] CC:
[2019-12-19 08:00] VITALS: BP 140/87
[2019-12-19] MEDS: Furosemide 40mg tab ORAL SCH (09:00)
[2019-12-19] MEDS: Magnesium Oxide 400mg tab ORAL SCH ×3 (09:00→17:45)
[2019-12-19] MEDS: Lisinopril 10mg tab ORAL SCH (09:00)
[2019-12-19] MEDS: Memantine 5 MG TAB ORAL SCH (09:00)
--- NOTE | 2019-12-19 11:26 | Pulmonology Progress Note ---
Subjective ROS Limited/Unobtainable: No Interval Events: on NRBM Constitutional: Reports: no symptoms Respiratory: Reports: dry cough, shortness of breath Cardiovascular: Reports: no symptoms Gastrointestinal/Abdominal: Reports: no symptoms Genitourinary: Reports: no symptoms Neurologic: Reports: no symptoms Allergies: Coded Allergies: No Known Allergies (Unverified , 07/28/14) All Systems: reviewed and negative except above Objective Last 24 Hour Vital Signs Date Time Temp Pulse Resp B/P (MAP) Pulse Ox O2 Delivery O2 Flow Rate FiO2 12/19/19 09:00 140/87 12/19/19 09:00 92 140/87 12/19/19 08:00 98.2 92 24 140/87 (104) 94 12/19/19 04:04 98.6 98 138/92 (107) 12/18/19 23:52 98.9 103 17 141/94 (110) 93 12/18/19 21:06 82 148/72 12/18/19 20:16 Non-Rebreather 12/18/19 20:00 92 Non-Rebreather 15.0 100 12/18/19 20:00 99.4 100 20 139/100 (113) 94 12/18/19 16:00 97.8 82 18 148/72 (97) 95 12/18/19 12:00 97.8 91 17 146/90 (108) 95 Intake and Output 12/18/19 12/19/19 19:00 07:00 Intake Total 640.000 ml Output Total 600 ml Balance 40.000 ml Intake Oral 200 ml IV Total 440.000 ml Output Urine Total 600 ml General Appearance: no acute distress HEENT: normocephalic Respiratory/Chest: chest wall non-tender, lungs clear Cardiovascular: normal peripheral pulses Abdomen: normal bowel sounds Laboratory Tests 12/19/19 06:00: White Blood Count 13.2H, Red Blood Count 3.47L, Hemoglobin 9.9L, Hematocrit 30.3L, Mean Corpuscular Volume 87, Mean Corpuscular Hemoglobin 28.6, Mean Corpuscular Hemoglobin Concent 32.8, Red Cell Distribution Width 11.8, Platelet Count 101L, Mean Platelet Volume 7.7, Neutrophils (%) (Auto) , Lymphocytes (%) ( Auto) , Monocytes (%) (Auto) , Eosinophils (%) (Auto) , Basophils (%) (Auto) , Differential Total Cells Counted 100, Neutrophils % (Manual) 92H, Lymphocytes % (Manual) 6L, Monocytes % (Manual) 2, Eosinophils % (Manual) 0, Basophils % ( Manual) 0, Band Neutrophils 0, Platelet Estimate DecreasedL, Platelet Morphology Normal, Hypochromasia 2+, Anisocytosis 1+, Sodium Level 148H, Potassium Level 3.3L, Chloride Level 111H, Carbon Dioxide Level 29, Anion Gap 8 , Blood Urea Nitrogen 17, Creatinine 0.8, Estimat Glomerular Filtration Rate > 60, Glucose Level 180H, Calcium Level 7.8L 12/19/19 09:00: Vancomycin Level Trough 15.3H Current Medications Medications (Trade) Dose Ordered Sig/Wiley Route PRN Reason Start Time Stop Time Status Last Admin Dose Admin Acetaminophen (Tylenol) 650 mg Q6H PRN ORAL Temp >100.5 12/11/19 14:45 01/07/20 08:44 12/14/19 21:01 Acetaminophen (Tylenol) 650 mg Q6H PRN RECTAL Temp >100.5 12/15/19 10:15 01/14/20 10:14 12/15/19 16:59 Carvedilol (Coreg) 3.125 mg EVERY 12 HOURS ORAL 12/11/19 21:00 01/10/20 20:59 12/19/19 09:00 Chlorhexidine Gluconate (Milagro-Hex 2%) 1 applic DAILY@1999 TOPIC 12/11/19 20:00 03/06/20 19:59 12/18/19 21:06 Furosemide (Lasix) 40 mg DAILY ORAL 12/19/19 09:00 01/18/20 08:59 12/19/19 09:00 Gabapentin (Neurontin) 300 mg Q8HR ORAL 12/11/19 22:00 01/06/20 00:00 12/19/19 04:55 Levetiracetam (Keppra) 1,000 mg Q12HR ORAL 12/11/19 21:00 01/06/20 00:00 12/19/19 09:00 Lisinopril (ZestriL) 10 mg DAILY ORAL 12/19/19 09:00 01/18/20 08:59 12/19/19 09:00 Magnesium Oxide (Mag-Ox 400mg) 400 mg THREE TIMES A DAY ORAL 12/14/19 18:00 01/13/20 17:59 12/19/19 09:00 Memantine (Namenda) 5 mg DAILY ORAL 12/12/19 09:00 01/06/20 16:59 12/19/19 09:00 Piperacillin Sod/ Tazobactam Sod 3.375 gm/Sodium Chloride 110 ml @ 27.5 mls/hr EVERY 8 HOURS IVPB 12/15/19 14:00 12/20/19 13:59 12/19/19 04:56 Potassium Chloride (K-Dur) 40 meq BID ORAL 12/18/19 18:00 03/13/20 10:14 12/19/19 09:00 Vancomycin HCl (Vanco rx to dose) 1 ea DAILY PRN MISC Per rx protocol 12/16/19 12:30 01/15/20 12:29 Vancomycin HCl 1 gm/Dextrose 275 ml @ 183.708 mls/hr Q8H IVPB 12/18/19 10:00 12/23/19 09:59 12/19/19 10:00 Assessment/Plan Assessment/Plan IMPRESSION: 1. Cardiomyopathy. 2. Hypotension. 3. Left lung pneumonia. 4. senior living resident. 5. Positive COVID-19. DISCUSSION: 1. Continue isolation 2. Continue current medications. 3. Off pressors. 4. Continue O2/NRBM 5. Pulmonary hygiene. 6. Broad-spectrum antibiotics. 7. I will follow. 8. Transferred to med-surg Amber Walters Omar Syed MD December 19, 2019 11:26
--- NOTE | 2019-12-19 11:43 | General Progress Note ---
Assessment/Plan Problem List: (1) Suspected COVID-19 virus infection ICD Codes: Z20.828 - Contact with and (suspected) exposure to other viral communicable diseases SNOMED: 845657153 (2) Anemia ICD Codes: D64.9 - Anemia, unspecified SNOMED: 685832420 (3) Weak ICD Codes: R53.1 - Weakness SNOMED: 43374705 (4) COPD (chronic obstructive pulmonary disease) ICD Codes: J44.9 - Chronic obstructive pulmonary disease, unspecified SNOMED: 48511669 (5) Diabetes ICD Codes: E11.9 - Type 2 diabetes mellitus without complications SNOMED: 56065170 (6) Epileptic seizure, generalized ICD Codes: G40.309 - Generalized idiopathic epilepsy and epileptic syndromes, not intractable, without status epilepticus SNOMED: 07658629 (7) Altered mental status ICD Codes: R41.82 - Altered mental status, unspecified SNOMED: 231402761 Qualifiers: Qualified Codes: R41.82 - Altered mental status, unspecified (8) Hypotension ICD Codes: I95.9 - Hypotension, unspecified SNOMED: 89607507 Qualifiers: Qualified Codes: I95.9 - Hypotension, unspecified (9) UTI (urinary tract infection) ICD Codes: N39.0 - Urinary tract infection, site not specified SNOMED: 35137791 Status: unchanged Assessment/Plan: o2 pulm tx abx pt diet cbc bmp am Subjective Constitutional: Reports: weakness Allergies: Coded Allergies: No Known Allergies (Unverified , 07/28/14) All Systems: reviewed and negative except above Subjective sleepy calm in bed Objective Last 24 Hour Vital Signs Date Time Temp Pulse Resp B/P (MAP) Pulse Ox O2 Delivery O2 Flow Rate FiO2 12/19/19 09:00 140/87 12/19/19 09:00 92 140/87 12/19/19 09:00 Non-Rebreather 12/19/19 08:00 98.2 92 24 140/87 (104) 94 12/19/19 04:04 98.6 98 138/92 (107) 12/18/19 23:52 98.9 103 17 141/94 (110) 93 12/18/19 21:06 82 148/72 12/18/19 20:16 Non-Rebreather 12/18/19 20:00 92 Non-Rebreather 15.0 100 5/6/20 20:00 99.4 100 20 139/100 (113) 94 12/18/19 16:00 97.8 82 18 148/72 (97) 95 12/18/19 12:00 97.8 91 17 146/90 (108) 95 Intake and Output 12/18/19 12/19/19 19:00 07:00 Intake Total 640.000 ml Output Total 600 ml Balance 40.000 ml Intake Oral 200 ml IV Total 440.000 ml Output Urine Total 600 ml Laboratory Tests 12/19/19 06:00: White Blood Count 13.2H, Red Blood Count 3.47L, Hemoglobin 9.9L, Hematocrit 30.3L, Mean Corpuscular Volume 87, Mean Corpuscular Hemoglobin 28.6, Mean Corpuscular Hemoglobin Concent 32.8, Red Cell Distribution Width 11.8, Platelet Count 101L, Mean Platelet Volume 7.7, Neutrophils (%) (Auto) , Lymphocytes (%) ( Auto) , Monocytes (%) (Auto) , Eosinophils (%) (Auto) , Basophils (%) (Auto) , Differential Total Cells Counted 100, Neutrophils % (Manual) 92H, Lymphocytes % (Manual) 6L, Monocytes % (Manual) 2, Eosinophils % (Manual) 0, Basophils % ( Manual) 0, Band Neutrophils 0, Platelet Estimate DecreasedL, Platelet Morphology Normal, Hypochromasia 2+, Anisocytosis 1+, Sodium Level 148H, Potassium Level 3.3L, Chloride Level 111H, Carbon Dioxide Level 29, Anion Gap 8 , Blood Urea Nitrogen 17, Creatinine 0.8, Estimat Glomerular Filtration Rate > 60, Glucose Level 180H, Calcium Level 7.8L 12/19/19 09:00: Vancomycin Level Trough 15.3H Height (Feet): 5 Height (Inches): 8.00 Weight (Pounds): 178 General Appearance: lethargic EENT: normal ENT inspection Neck: normal alignment Cardiovascular: normal rate, regular rhythm Respiratory/Chest: no respiratory distress, no accessory muscle use Extremities: normal inspection Skin: normal pigmentation Tee Novoa DO December 19, 2019 11:43
[2019-12-19 12:00] VITALS: BP 151/93
--- NOTE | 2019-12-19 12:37 | Nephrology Progress Note ---
Assessment/Plan Problem List: (1) Electrolyte imbalance (2) Suspected COVID-19 virus infection (3) Hypotension Assessment: Resolved (4) Sepsis Assessment Patient's current problem from renal standpoint of view is hypokalemia and other electrolyte imbalances His other conditions: Patient presented with acute renal failure however it is now resolved Patient presented with septic shock was on pressors however now resolved Sepsis leukocytosis improving Patient has COVID-19 pneumonia Hypertension Cardiomyopathy status post AICD Previous CVA with right residual weakness Seizure disorders Plan Stable from renal standpoint of view Stop IV fluids Start oral potassium, magnesium, phosphorus supplements We will continue to monitor electrolytes and chemistries Continue per consultants Per orders Subjective ROS Limited/Unobtainable: No Constitutional: Reports: malaise, weakness Objective Objective Last 24 Hour Vital Signs Date Time Temp Pulse Resp B/P (MAP) Pulse Ox O2 Delivery O2 Flow Rate FiO2 12/19/19 09:00 140/87 12/19/19 09:00 92 140/87 12/19/19 09:00 Non-Rebreather 12/19/19 08:00 98.2 92 24 140/87 (104) 94 12/19/19 04:04 98.6 98 138/92 (107) 12/18/19 23:52 98.9 103 17 141/94 (110) 93 12/18/19 21:06 82 148/72 12/18/19 20:16 Non-Rebreather 12/18/19 20:00 92 Non-Rebreather 15.0 100 12/18/19 20:00 99.4 100 20 139/100 (113) 94 12/18/19 16:00 97.8 82 18 148/72 (97) 95 Intake and Output 12/18/19 12/19/19 19:00 07:00 Intake Total 640.000 ml Output Total 600 ml Balance 40.000 ml Intake Oral 200 ml IV Total 440.000 ml Output Urine Total 600 ml Laboratory Tests 12/19/19 06:00: White Blood Count 13.2H, Red Blood Count 3.47L, Hemoglobin 9.9L, Hematocrit 30.3L, Mean Corpuscular Volume 87, Mean Corpuscular Hemoglobin 28.6, Mean Corpuscular Hemoglobin Concent 32.8, Red Cell Distribution Width 11.8, Platelet Count 101L, Mean Platelet Volume 7.7, Neutrophils (%) (Auto) , Lymphocytes (%) ( Auto) , Monocytes (%) (Auto) , Eosinophils (%) (Auto) , Basophils (%) (Auto) , Differential Total Cells Counted 100, Neutrophils % (Manual) 92H, Lymphocytes % (Manual) 6L, Monocytes % (Manual) 2, Eosinophils % (Manual) 0, Basophils % ( Manual) 0, Band Neutrophils 0, Platelet Estimate DecreasedL, Platelet Morphology Normal, Hypochromasia 2+, Anisocytosis 1+, Sodium Level 148H, Potassium Level 3.3L, Chloride Level 111H, Carbon Dioxide Level 29, Anion Gap 8 , Blood Urea Nitrogen 17, Creatinine 0.8, Estimat Glomerular Filtration Rate > 60, Glucose Level 180H, Calcium Level 7.8L 12/19/19 09:00: Vancomycin Level Trough 15.3H Height (Feet): 5 Height (Inches): 8.00 Weight (Pounds): 178 General Appearance: no apparent distress, lethargic Cardiovascular: tachycardia Respiratory/Chest: decreased breath sounds Abdomen: soft Objective No change Ed Vega MD December 19, 2019 12:37
--- NOTE | 2019-12-19 13:29 | Cardiac Electrophysiology PN ---
Assessment/Plan Assessment/Plan 1. S/P Shock due to cardiomyopathy EF 40 and sepsis. BNP is 736. On Abx by Dr. Sanchez 2. CHF EF 40%. On Coreg 3.125 bid ,Lasix 40 po daily and Lisinopril 10 daily 3. Status post right-sided MERT ICD. 4. History of hypertension 5. History of CVA with residual weakness. 6. COVID-19 PNA, off the vent 7. Hypernatremia. KOTA RN Subjective Subjective In Covid isolation. No new events Objective Last 24 Hour Vital Signs Date Time Temp Pulse Resp B/P (MAP) Pulse Ox O2 Delivery O2 Flow Rate FiO2 12/19/19 12:00 98.2 101 24 151/93 (112) 94 12/19/19 09:00 140/87 12/19/19 09:00 92 140/87 12/19/19 09:00 Non-Rebreather 12/19/19 08:00 98.2 92 24 140/87 (104) 94 12/19/19 04:04 98.6 98 138/92 (107) 12/18/19 23:52 98.9 103 17 141/94 (110) 93 12/18/19 21:06 82 148/72 12/18/19 20:16 Non-Rebreather 12/18/19 20:00 92 Non-Rebreather 15.0 100 12/18/19 20:00 99.4 100 20 139/100 (113) 94 12/18/19 16:00 97.8 82 18 148/72 (97) 95 Intake and Output 12/18/19 12/19/19 19:00 07:00 Intake Total 640.000 ml Output Total 600 ml Balance 40.000 ml Intake Oral 200 ml IV Total 440.000 ml Output Urine Total 600 ml Laboratory Tests Test 12/19/19 06:00 12/19/19 09:00 White Blood Count 13.2 K/UL (4.8-10.8) H Red Blood Count 3.47 M/UL (4.70-6.10) L Hemoglobin 9.9 G/DL (14.2-18.0) L Hematocrit 30.3 % (42.0-52.0) L Mean Corpuscular Volume 87 FL (80-99) Mean Corpuscular Hemoglobin 28.6 PG (27.0-31.0) Mean Corpuscular Hemoglobin Concent 32.8 G/DL (32.0-36.0) Red Cell Distribution Width 11.8 % (11.6-14.8) Platelet Count 101 K/UL (150-450) L Mean Platelet Volume 7.7 FL (6.5-10.1) Neutrophils (%) (Auto) % (45.0-75.0) Lymphocytes (%) (Auto) % (20.0-45.0) Monocytes (%) (Auto) % (1.0-10.0) Eosinophils (%) (Auto) % (0.0-3.0) Basophils (%) (Auto) % (0.0-2.0) Differential Total Cells Counted 100 Neutrophils % (Manual) 92 % (45-75) H Lymphocytes % (Manual) 6 % (20-45) L Monocytes % (Manual) 2 % (1-10) Eosinophils % (Manual) 0 % (0-3) Basophils % (Manual) 0 % (0-2) Band Neutrophils 0 % (0-8) Platelet Estimate Decreased L Platelet Morphology Normal Hypochromasia 2+ Anisocytosis 1+ Sodium Level 148 MMOL/L (136-145) H Potassium Level 3.3 MMOL/L (3.5-5.1) L Chloride Level 111 MMOL/L (98-107) H Carbon Dioxide Level 29 MMOL/L (21-32) Anion Gap 8 mmol/L (5-15) Blood Urea Nitrogen 17 mg/dL (7-18) Creatinine 0.8 MG/DL (0.55-1.30) Estimat Glomerular Filtration Rate > 60 mL/min (>60) Glucose Level 180 MG/DL (74-106) H Calcium Level 7.8 MG/DL (8.5-10.1) L Vancomycin Level Trough 15.3 ug/mL (5.0-12.0) H Objective HEAD AND NECK: Mild JVD. LUNGS: Decreased breath sounds. CARDIOVASCULAR: Regular S1 and S2 with no gallop. ABDOMEN: Soft. EXTREMITIES: 1+ pitting edema. Defibrillator is in right subclavian. Shai Bullard MD December 19, 2019 13:29
--- NOTE | 2019-12-19 13:36 | Infectious Diseases Prog Note ---
Assessment/Plan Assessment/Plan Assessment: Septic shock-SP Fever; improving Mild leukocytosis, increased, now improving (s/p steroids) -12/14 u/a wbc 15-20, nit neg, leuk +1; ucx p Bcx NTD -u/a neg -Bcx Neg Probable PNA- 2ry to COVID19 (from [place] with confirmed cases) Acute hypoxic respiratory failure- was on NC, now on NRB- increasing FIo2 requiremetns -12/16 CXR: Bilateral interstitial and airspace infiltrates are again demonstrated.Appearance is overall unchanged. There may be a small left pleural effusion,unchange -12/15 CRP 41.6, ferritin 1468 -12/14 CXR: . Worsening bilateral interstitial and airspace opacities. Probable small left pleural effusion. Difficult to evaluate the right costophrenic angle due to overlying pacemaker. -12/11 CXR: Slightly improved bilateral interstitial and airspace infiltrates versus edema -12/09 CXR: Bilateral mid and lower lung interstitial disease, new since prior study.Possible developing left pleural effusion Ferritn >2000, CRP 22.3 -12/05 SARS-COV2 PCR + -CXR: Left basilar atelectasis and/or infiltrate TRAE, improving HTN cadiomyopathy s/p AICD CVA x3 w/ residual R side weakness seizure disorder [place] resident ([facility]) Plan: -Continue empiric Zosyn #5/5 and add IV Vancomycin #4/5 - SPSolumedrol 40mg IV 12hrs x 5days (12/15-12/17); dc'ed by [employer] recruiter - ( day 10 of illness and worsening; around this time is seen the worsening of COVID19 pts mainly driven by inflammatory response) -12/10 SP Cefepime #6 -12/08 SP IV Vancomycin #4 -f/u cx -Monitor CBC/CMP, temperatures -COVID 19 precautions -clarify goals of care -aspiration precautions -inflamatory markers -f/u cx -CXR am Thank you for consulting [facility]. Will continue to follow along with you. Discussed with RN, Subjective Allergies: Coded Allergies: No Known Allergies (Unverified , 07/28/14) Subjective afebrile >48hrs on NRB now wbc improving Objective Vital Signs Last 24 Hour Vital Signs Date Time Temp Pulse Resp B/P (MAP) Pulse Ox O2 Delivery O2 Flow Rate FiO2 12/19/19 12:00 98.2 101 24 151/93 (112) 94 12/19/19 09:00 140/87 12/19/19 09:00 92 140/87 12/19/19 09:00 Non-Rebreather 12/19/19 08:00 98.2 92 24 140/87 (104) 94 12/19/19 04:04 98.6 98 138/92 (107) 12/18/19 23:52 98.9 103 17 141/94 (110) 93 12/18/19 21:06 82 148/72 12/18/19 20:16 Non-Rebreather 12/18/19 20:00 92 Non-Rebreather 15.0 100 12/18/19 20:00 99.4 100 20 139/100 (113) 94 12/18/19 16:00 97.8 82 18 148/72 (97) 95 Height (Feet): 5 Height (Inches): 8.00 Weight (Pounds): 178 Objective not examined to limit COVID19 exposure Laboratory Tests Test 12/19/19 06:00 12/19/19 09:00 White Blood Count 13.2 K/UL (4.8-10.8) H Red Blood Count 3.47 M/UL (4.70-6.10) L Hemoglobin 9.9 G/DL (14.2-18.0) L Hematocrit 30.3 % (42.0-52.0) L Mean Corpuscular Volume 87 FL (80-99) Mean Corpuscular Hemoglobin 28.6 PG (27.0-31.0) Mean Corpuscular Hemoglobin Concent 32.8 G/DL (32.0-36.0) Red Cell Distribution Width 11.8 % (11.6-14.8) Platelet Count 101 K/UL (150-450) L Mean Platelet Volume 7.7 FL (6.5-10.1) Neutrophils (%) (Auto) % (45.0-75.0) Lymphocytes (%) (Auto) % (20.0-45.0) Monocytes (%) (Auto) % (1.0-10.0) Eosinophils (%) (Auto) % (0.0-3.0) Basophils (%) (Auto) % (0.0-2.0) Differential Total Cells Counted 100 Neutrophils % (Manual) 92 % (45-75) H Lymphocytes % (Manual) 6 % (20-45) L Monocytes % (Manual) 2 % (1-10) Eosinophils % (Manual) 0 % (0-3) Basophils % (Manual) 0 % (0-2) Band Neutrophils 0 % (0-8) Platelet Estimate Decreased L Platelet Morphology Normal Hypochromasia 2+ Anisocytosis 1+ Sodium Level 148 MMOL/L (136-145) H Potassium Level 3.3 MMOL/L (3.5-5.1) L Chloride Level 111 MMOL/L (98-107) H Carbon Dioxide Level 29 MMOL/L (21-32) Anion Gap 8 mmol/L (5-15) Blood Urea Nitrogen 17 mg/dL (7-18) Creatinine 0.8 MG/DL (0.55-1.30) Estimat Glomerular Filtration Rate > 60 mL/min (>60) Glucose Level 180 MG/DL (74-106) H Calcium Level 7.8 MG/DL (8.5-10.1) L Vancomycin Level Trough 15.3 ug/mL (5.0-12.0) H Current Medications Medications (Trade) Dose Ordered Sig/Wiley Route PRN Reason Start Time Stop Time Status Last Admin Dose Admin Acetaminophen (Tylenol) 650 mg Q6H PRN ORAL Temp >100.5 12/11/19 14:45 01/07/20 08:44 12/14/19 21:01 Acetaminophen (Tylenol) 650 mg Q6H PRN RECTAL Temp >100.5 12/15/19 10:15 01/14/20 10:14 12/15/19 16:59 Carvedilol (Coreg) 3.125 mg EVERY 12 HOURS ORAL 12/11/19 21:00 01/10/20 20:59 12/19/19 09:00 Chlorhexidine Gluconate (Milagro-Hex 2%) 1 applic DAILY@1999 TOPIC 12/11/19 20:00 03/06/20 19:59 12/18/19 21:06 Furosemide (Lasix) 40 mg DAILY ORAL 12/19/19 09:00 01/18/20 08:59 12/19/19 09:00 Gabapentin (Neurontin) 300 mg Q8HR ORAL 12/11/19 22:00 01/06/20 00:00 12/19/19 04:55 Levetiracetam (Keppra) 1,000 mg Q12HR ORAL 12/11/19 21:00 01/06/20 00:00 12/19/19 09:00 Lisinopril (ZestriL) 10 mg DAILY ORAL 12/19/19 09:00 01/18/20 08:59 12/19/19 09:00 Magnesium Oxide (Mag-Ox 400mg) 400 mg THREE TIMES A DAY ORAL 12/14/19 18:00 01/13/20 17:59 12/19/19 09:00 Memantine (Namenda) 5 mg DAILY ORAL 12/12/19 09:00 01/06/20 16:59 12/19/19 09:00 Piperacillin Sod/ Tazobactam Sod 3.375 gm/Sodium Chloride 110 ml @ 27.5 mls/hr EVERY 8 HOURS IVPB 12/15/19 14:00 12/20/19 13:59 12/19/19 04:56 Potassium Chloride (K-Dur) 40 meq BID ORAL 12/18/19 18:00 03/13/20 10:14 12/19/19 09:00 Vancomycin HCl (Vanco rx to dose) 1 ea DAILY PRN MISC Per rx protocol 12/16/19 12:30 01/15/20 12:29 Vancomycin HCl 1 gm/Dextrose 275 ml @ 183.708 mls/hr Q8H IVPB 12/18/19 10:00 12/23/19 09:59 12/19/19 10:00 Sujatha Sanchez M.D. December 19, 2019 13:36
[2019-12-19 16:00] VITALS: BP 137/94
--- NOTE | 2019-12-19 19:04 | NUR ---
HAND-OFF: Report given to Yo.
--- NOTE | 2019-12-19 19:24 | NUR ---
NURSE NOTES: Received patient awake, non-verbal, on non-rebreather O2 mask, impulsive, on bilateral soft wrist restraints.
--- NOTE | 2019-12-19 19:29 | Progress Note ---
DATE: 12/19/2019 SUBJECTIVE: This is a 69-year-old male patient. He has sepsis, he has hypotension, and he also has COPD, pyelonephritis, sepsis, anemia, diabetes, COVID-19 infection causing him to have decline in cognition below his baseline that is why his attending has requested daily psychiatric consultation. MENTAL STATUS EXAMINATION: This is a 69-year-old male. Appearance is disheveled. Attitude, irritable and agitated. Affect, guarded and restricted. Intellect poor. Mood, depressed and anxious. Motor activity, psychomotor agitation. Insight and judgment is poor. DIAGNOSIS: Major depressive disorder, mild, recurrent with psychotic features, rule out dementia with psychosis. PLAN: Treat him with medication regimen consisting of Namenda 5 mg daily, Ativan 1 mg IV every 6 hours for anxiety and agitation, Neurontin 300 mg q.8 hours. 20-minutes of insight-oriented psychotherapy to help him recognize his psychiatric and mental condition so that he has better impulse control and behavior and recognition on the unit in his mood. Chart reviewed and discussed with staff. Seen and assessed in his room. Mirna Adkins M.D. DR: Blake JOB#: [id number] CC:
[2019-12-19 20:39] VITALS: BP 141/101
[2019-12-19] MEDS: Dyna-Hex 2% Top Sol 2oz TOPIC SCH (20:46)
[2019-12-20 00:06] VITALS: BP 139/92
[2019-12-20] MEDS: Vancomycin 1gm/D5W 275ml IVPB SCH ×6 (01:56→17:12)
[2019-12-20 04:00] VITALS: BP 142/96
[2019-12-20] MEDS: Piperacillin/Tazobactam 3.375 GM in NS 110 ML IVPB SCH (04:15)
[2019-12-20 06:43] LABS: HEMATOCRIT 29.1 % (42.0-52.0); HEMOGLOBIN 9.8 G/DL (14.2-18.0); MEAN CORPUSCULAR VOLUME 87 FL (80-99); PLATELET COUNT 127 K/UL (150-450); RED BLOOD COUNT 3.36 M/UL (4.70-6.10); WHITE BLOOD COUNT 14.7 K/UL (4.8-10.8)
[2019-12-20 06:55] LABS: ANION GAP 9 mmol/L (5-15); BLOOD UREA NITROGEN 14 mg/dL (7-18); CARBON DIOXIDE 29 MMOL/L (21-32); CHLORIDE 111 MMOL/L (98-107); CREATININE 0.8 MG/DL (0.55-1.30); POTASSIUM 3.8 MMOL/L (3.5-5.1); SODIUM 149 MMOL/L (136-145)
[2019-12-20 07:16] LABS: ALANINE AMINOTRANSFERASE 20 U/L (12-78); ALBUMIN 1.5 G/DL (3.4-5.0); ALKALINE PHOSPHATASE 71 U/L (46-116); ASPARTATE AMINO TRANSFERASE 40 U/L (15-37); BILIRUBIN,DIRECT < 0.1 MG/DL (0.0-0.3); BILIRUBIN,TOTAL 0.9 MG/DL (0.2-1.0); FERRITIN 1184 NG/ML (8-388); PHOSPHORUS 2.5 MG/DL (2.5-4.9)
--- NOTE | 2019-12-20 07:22 | NUR ---
HAND-OFF: Report given to Mary Ortega RN.
--- NOTE | 2019-12-20 07:42 | NUR ---
NURSE NOTES: Patient awake, non-verbal; on non Rebreather mast; Bilateral soft Wrist restrains in place, good circulation, and skin warm to touch; Triple lumen catheter on the Right Femoral; side rails padded for seizure percussion, side rails up x2, breaks engaged, bed at lowest position, bed alarm on; call light within reach; will keep monitoring.
[2019-12-20 08:00] VITALS: BP 136/92
[2019-12-20] MEDS: Furosemide 40mg tab ORAL SCH (09:03)
[2019-12-20] MEDS: Magnesium Oxide 400mg tab ORAL SCH ×3 (09:03→17:08)
[2019-12-20] MEDS: Memantine 5 MG TAB ORAL SCH (09:03)
[2019-12-20] MEDS: Lisinopril 10mg tab ORAL SCH (09:09)
--- NOTE | 2019-12-20 09:43 | General Progress Note ---
Assessment/Plan Problem List: (1) Suspected COVID-19 virus infection ICD Codes: Z20.828 - Contact with and (suspected) exposure to other viral communicable diseases SNOMED: 271949549 (2) Anemia ICD Codes: D64.9 - Anemia, unspecified SNOMED: 939816680 (3) Weak ICD Codes: R53.1 - Weakness SNOMED: 31514130 (4) COPD (chronic obstructive pulmonary disease) ICD Codes: J44.9 - Chronic obstructive pulmonary disease, unspecified SNOMED: 81647288 (5) Diabetes ICD Codes: E11.9 - Type 2 diabetes mellitus without complications SNOMED: 36390057 (6) Epileptic seizure, generalized ICD Codes: G40.309 - Generalized idiopathic epilepsy and epileptic syndromes, not intractable, without status epilepticus SNOMED: 02431253 (7) Altered mental status ICD Codes: R41.82 - Altered mental status, unspecified SNOMED: 859276369 Qualifiers: Qualified Codes: R41.82 - Altered mental status, unspecified (8) Hypotension ICD Codes: I95.9 - Hypotension, unspecified SNOMED: 58988827 Qualifiers: Qualified Codes: I95.9 - Hypotension, unspecified (9) UTI (urinary tract infection) ICD Codes: N39.0 - Urinary tract infection, site not specified SNOMED: 63850475 Status: unchanged Assessment/Plan: o2 pulm tx abx pt diet cbc bmp am Subjective Constitutional: Reports: weakness Allergies: Coded Allergies: No Known Allergies (Unverified , 07/28/14) All Systems: reviewed and negative except above Subjective sleepy calm in bed Objective Last 24 Hour Vital Signs Date Time Temp Pulse Resp B/P (MAP) Pulse Ox O2 Delivery O2 Flow Rate FiO2 12/20/19 09:09 136/92 12/20/19 09:09 96 136/92 12/20/19 07:58 94 Non-Rebreather 15.0 100 12/20/19 04:00 98.0 102 40 142/96 (111) 93 12/20/19 00:06 98.7 105 32 139/92 (108) 90 12/19/19 20:46 110 141/101 12/19/19 20:39 98.9 110 32 141/101 (114) 87 12/19/19 20:12 Non-Rebreather 12/19/19 19:41 93 Non-Rebreather 15.0 100 12/19/19 16:00 97.7 94 24 137/94 (108) 92 12/19/19 12:00 98.2 101 24 151/93 (112) 94 Intake and Output 12/19/19 12/20/19 19:00 07:00 Intake Total 240 ml 467.500 ml Output Total 1100 ml 800 ml Balance -860 ml -332.500 ml Intake Oral 240 ml IV Total 467.500 ml Output Urine Total 1100 ml 800 ml # Bowel Movements 1 1 Laboratory Tests 12/20/19 05:40: White Blood Count 14.7H, Red Blood Count 3.36L, Hemoglobin 9.8L, Hematocrit 29.1L, Mean Corpuscular Volume 87, Mean Corpuscular Hemoglobin 29.3, Mean Corpuscular Hemoglobin Concent 33.7, Red Cell Distribution Width 12.0, Platelet Count 127L, Mean Platelet Volume 8.3, Neutrophils (%) (Auto) , Lymphocytes (%) ( Auto) , Monocytes (%) (Auto) , Eosinophils (%) (Auto) , Basophils (%) (Auto) , Neutrophils % (Manual) [Pending], Lymphocytes % (Manual) [Pending], Platelet Estimate [Pending], Platelet Morphology [Pending], Sodium Level 149H, Potassium Level 3.8, Chloride Level 111H, Carbon Dioxide Level 29, Anion Gap 9, Blood Urea Nitrogen 14, Creatinine 0.8, Estimat Glomerular Filtration Rate > 60, Glucose Level 186H, Calcium Level 8.0L, Phosphorus Level 2.5, Magnesium Level 1.7L, Ferritin 1184H, Total Bilirubin 0.9, Direct Bilirubin < 0.1, Aspartate Amino Transf (AST/SGOT) 40H, Alanine Aminotransferase (ALT/SGPT) 20, Alkaline Phosphatase 71, Lactate Dehydrogenase 609H, C-Reactive Protein, Quantitative [ Pending], Total Protein 5.3L, Albumin 1.5L Height (Feet): 5 Height (Inches): 8.00 Weight (Pounds): 177 General Appearance: lethargic EENT: normal ENT inspection Neck: normal alignment Cardiovascular: normal rate, regular rhythm Respiratory/Chest: no respiratory distress, no accessory muscle use Extremities: normal inspection Skin: normal pigmentation Tee Novoa DO December 20, 2019 09:43
[2019-12-20 12:00] VITALS: BP 149/90
--- NOTE | 2019-12-20 12:01 | Nephrology Progress Note ---
Assessment/Plan Problem List: (1) Electrolyte imbalance (2) Suspected COVID-19 virus infection (3) Hypotension Assessment: Resolved (4) Sepsis Assessment Patient's current problem from renal standpoint of view is hypokalemia and other electrolyte imbalances His other conditions: Patient presented with acute renal failure however it is now resolved Patient presented with septic shock was on pressors however now resolved Sepsis leukocytosis improving Patient has COVID-19 pneumonia Hypertension Cardiomyopathy status post AICD Previous CVA with right residual weakness Seizure disorders Plan Mag sulfate IV today and as needed Stable from renal standpoint of view Stop IV fluids Start oral potassium, magnesium, phosphorus supplements We will continue to monitor electrolytes and chemistries Continue per consultants Per orders Subjective ROS Limited/Unobtainable: No Constitutional: Reports: malaise, weakness Objective Objective Last 24 Hour Vital Signs Date Time Temp Pulse Resp B/P (MAP) Pulse Ox O2 Delivery O2 Flow Rate FiO2 12/20/19 09:09 136/92 12/20/19 09:09 96 136/92 12/20/19 09:00 Non-Rebreather 12/20/19 08:00 99.6 96 24 136/92 (107) 96 12/20/19 07:58 94 Non-Rebreather 15.0 100 12/20/19 04:00 98.0 102 40 142/96 (111) 93 12/20/19 00:06 98.7 105 32 139/92 (108) 90 12/19/19 20:46 110 141/101 12/19/19 20:39 98.9 110 32 141/101 (114) 87 12/19/19 20:12 Non-Rebreather 12/19/19 19:41 93 Non-Rebreather 15.0 100 12/19/19 16:00 97.7 94 24 137/94 (108) 92 12/19/19 12:00 98.2 101 24 151/93 (112) 94 Intake and Output 12/19/19 12/20/19 19:00 07:00 Intake Total 240 ml 467.500 ml Output Total 1100 ml 800 ml Balance -860 ml -332.500 ml Intake Oral 240 ml IV Total 467.500 ml Output Urine Total 1100 ml 800 ml # Bowel Movements 1 1 Laboratory Tests 12/20/19 05:40: White Blood Count 14.7H, Red Blood Count 3.36L, Hemoglobin 9.8L, Hematocrit 29.1L, Mean Corpuscular Volume 87, Mean Corpuscular Hemoglobin 29.3, Mean Corpuscular Hemoglobin Concent 33.7, Red Cell Distribution Width 12.0, Platelet Count 127L, Mean Platelet Volume 8.3, Neutrophils (%) (Auto) , Lymphocytes (%) ( Auto) , Monocytes (%) (Auto) , Eosinophils (%) (Auto) , Basophils (%) (Auto) , Differential Total Cells Counted 100, Neutrophils % (Manual) 87H, Lymphocytes % (Manual) 8L, Monocytes % (Manual) 4, Eosinophils % (Manual) 1, Basophils % ( Manual) 0, Band Neutrophils 0, Platelet Estimate DecreasedL, Platelet Morphology Normal, Hypochromasia 2+, Anisocytosis 1+, Sodium Level 149H, Potassium Level 3.8, Chloride Level 111H, Carbon Dioxide Level 29, Anion Gap 9, Blood Urea Nitrogen 14, Creatinine 0.8, Estimat Glomerular Filtration Rate > 60 , Glucose Level 186H, Calcium Level 8.0L, Phosphorus Level 2.5, Magnesium Level 1.7L, Ferritin 1184H, Total Bilirubin 0.9, Direct Bilirubin < 0.1, Aspartate Amino Transf (AST/SGOT) 40H, Alanine Aminotransferase (ALT/SGPT) 20, Alkaline Phosphatase 71, Lactate Dehydrogenase 609H, C-Reactive Protein, Quantitative [ Pending], Total Protein 5.3L, Albumin 1.5L Height (Feet): 5 Height (Inches): 8.00 Weight (Pounds): 177 General Appearance: no apparent distress Cardiovascular: tachycardia Respiratory/Chest: decreased breath sounds Abdomen: distended Objective No change Ed Vega MD December 20, 2019 12:01
--- NOTE | 2019-12-20 12:36 | NUR ---
RADIOLOGY DEPT, CHEST X-RAY DONE.-P.DYE
--- NOTE | 2019-12-20 13:10 | NUR ---
RD ASSESSMENT & RECOMMENDATIONS SEE CARE ACTIVITY FOR COMPLETE ASSESSMENT DAILY ESTIMATED NEEDS: Needs based on Cardiac 74kg abw 25-30 kcals/kg 4374-0583 total kcals 1-1.2 g protein/kg 74-89 g total protein 25-30 mL/kg 3986-5709 total fluid mLs NUTRITION DIAGNOSIS: Altered nutrition related lab values r/t clinical status as evidenced by elev BG (174-264), febrile (tmax 99.6) CURRENT DIET: CLD PO DIET RECOMMENDATIONS: Advance as able to liberalized Regular / texture per RESEARCH PHYSICIST ENTERAL NUTRITION RECOMMENDATIONS: CONSULT RD FOR NON ORAL TF RECS OF PART OF POC ADDITIONAL RECOMMENDATIONS: 1) Check A1C -> pt w/elev BG (180-186); a1c 7.4 2) Add Ensure Clear w/ CLD-> advance diet as able 3) Monitor ICU status, repsiratory status-> now med surg 4) Obtain a calibrated bed scale wt 5) Rec RESEARCH PHYSICIST eval prior to advancing diet -> pt now CLD from adm -> Consult RD if non oral feeds are part of POC
--- NOTE | 2019-12-20 13:16 | Diagnostic Imaging Report ---
Indication: Shortness of breath Technique: One view of the chest Comparison: 12/17/2019 Findings: Bilateral diffuse infiltrates appear unchanged. The heart is borderline enlarged. Right chest AICD again demonstrated. Impression: Unchanged bilateral infiltrates, likely pneumonia, since prior exam of 3 days earlier.
--- NOTE | 2019-12-20 14:31 | Cardiac Electrophysiology PN ---
Assessment/Plan Assessment/Plan 1. S/P Shock due to cardiomyopathy EF 40 and sepsis. BNP is 736. On Abx by Dr. Sanchez 2. CHF EF 40%. On Coreg 3.125 bid , Lasix 40 iv bid and Lisinopril 10 daily 3. Status post right-sided MERT ICD. 4. Hypertension 5. History of CVA with residual weakness. 6. COVID-19 PNA, off the vent 7. Hypernatremia. KOTA RN Subjective Subjective In Covid isolation. No new events. Awaiting COvid negativity Objective Last 24 Hour Vital Signs Date Time Temp Pulse Resp B/P (MAP) Pulse Ox O2 Delivery O2 Flow Rate FiO2 12/20/19 12:00 98.1 90 24 149/90 (109) 94 12/20/19 09:09 136/92 12/20/19 09:09 96 136/92 12/20/19 09:00 Non-Rebreather 12/20/19 08:00 99.6 96 24 136/92 (107) 96 12/20/19 07:58 94 Non-Rebreather 15.0 100 12/20/19 04:00 98.0 102 40 142/96 (111) 93 12/20/19 00:06 98.7 105 32 139/92 (108) 90 12/19/19 20:46 110 141/101 12/19/19 20:39 98.9 110 32 141/101 (114) 87 12/19/19 20:12 Non-Rebreather 12/19/19 19:41 93 Non-Rebreather 15.0 100 12/19/19 16:00 97.7 94 24 137/94 (108) 92 Intake and Output 12/19/19 12/20/19 19:00 07:00 Intake Total 240 ml 467.500 ml Output Total 1100 ml 800 ml Balance -860 ml -332.500 ml Intake Oral 240 ml IV Total 467.500 ml Output Urine Total 1100 ml 800 ml # Bowel Movements 1 1 Laboratory Tests Test 12/20/19 05:40 White Blood Count 14.7 K/UL (4.8-10.8) H Red Blood Count 3.36 M/UL (4.70-6.10) L Hemoglobin 9.8 G/DL (14.2-18.0) L Hematocrit 29.1 % (42.0-52.0) L Mean Corpuscular Volume 87 FL (80-99) Mean Corpuscular Hemoglobin 29.3 PG (27.0-31.0) Mean Corpuscular Hemoglobin Concent 33.7 G/DL (32.0-36.0) Red Cell Distribution Width 12.0 % (11.6-14.8) Platelet Count 127 K/UL (150-450) L Mean Platelet Volume 8.3 FL (6.5-10.1) Neutrophils (%) (Auto) % (45.0-75.0) Lymphocytes (%) (Auto) % (20.0-45.0) Monocytes (%) (Auto) % (1.0-10.0) Eosinophils (%) (Auto) % (0.0-3.0) Basophils (%) (Auto) % (0.0-2.0) Differential Total Cells Counted 100 Neutrophils % (Manual) 87 % (45-75) H Lymphocytes % (Manual) 8 % (20-45) L Monocytes % (Manual) 4 % (1-10) Eosinophils % (Manual) 1 % (0-3) Basophils % (Manual) 0 % (0-2) Band Neutrophils 0 % (0-8) Platelet Estimate Decreased L Platelet Morphology Normal Hypochromasia 2+ Anisocytosis 1+ Sodium Level 149 MMOL/L (136-145) H Potassium Level 3.8 MMOL/L (3.5-5.1) Chloride Level 111 MMOL/L (98-107) H Carbon Dioxide Level 29 MMOL/L (21-32) Anion Gap 9 mmol/L (5-15) Blood Urea Nitrogen 14 mg/dL (7-18) Creatinine 0.8 MG/DL (0.55-1.30) Estimat Glomerular Filtration Rate > 60 mL/min (>60) Glucose Level 186 MG/DL (74-106) H Calcium Level 8.0 MG/DL (8.5-10.1) L Phosphorus Level 2.5 MG/DL (2.5-4.9) Magnesium Level 1.7 MG/DL (1.8-2.4) L Ferritin 1184 NG/ML (8-388) H Total Bilirubin 0.9 MG/DL (0.2-1.0) Direct Bilirubin < 0.1 MG/DL (0.0-0.3) Aspartate Amino Transf (AST/SGOT) 40 U/L (15-37) H Alanine Aminotransferase (ALT/SGPT) 20 U/L (12-78) Alkaline Phosphatase 71 U/L (46-116) Lactate Dehydrogenase 609 U/L (81-234) H C-Reactive Protein, Quantitative 27.0 mg/dL (0.00-0.90) H Total Protein 5.3 G/DL (6.4-8.2) L Albumin 1.5 G/DL (3.4-5.0) L Objective HEAD AND NECK: Mild JVD. LUNGS: Decreased breath sounds. CARDIOVASCULAR: Regular S1 and S2 with no gallop. ABDOMEN: Soft. EXTREMITIES: 1+ pitting edema. Defibrillator is in right subclavian. Shai Bullard MD December 20, 2019 14:31
--- NOTE | 2019-12-20 15:21 | Infectious Diseases Prog Note ---
Assessment/Plan Assessment/Plan Assessment: Septic shock-SP Fever; improving Mild leukocytosis, increased, now improving (s/p steroids) -12/14 u/a wbc 15-20, nit neg, leuk +1; ucx p Bcx NTD -u/a neg -Bcx Neg Probable PNA- 2ry to COVID19 (from [place] with confirmed cases) Acute hypoxic respiratory failure- was on NC, now on NRB- increasing FIo2 requiremetns -12/19 CXR: Unchanged bilateral infiltrates, likely pneumonia, since prior exam of 3 days earlier. -12/16 CXR: Bilateral interstitial and airspace infiltrates are again demonstrated.Appearance is overall unchanged. There may be a small left pleural effusion,unchange -12/15 CRP 41.6, ferritin 1468 -12/14 CXR: . Worsening bilateral interstitial and airspace opacities. Probable small left pleural effusion. Difficult to evaluate the right costophrenic angle due to overlying pacemaker. -12/11 CXR: Slightly improved bilateral interstitial and airspace infiltrates versus edema -12/09 CXR: Bilateral mid and lower lung interstitial disease, new since prior study.Possible developing left pleural effusion Ferritn >2000, CRP 22.3 -12/05 SARS-COV2 PCR + -CXR: Left basilar atelectasis and/or infiltrate TRAE, improving HTN cadiomyopathy s/p AICD CVA x3 w/ residual R side weakness seizure disorder [place] resident ([facility]) Plan: -Continue empiric IV Vancomycin #/5 -12/18 SP ZOsyn #5 - SPSolumedrol 40mg IV 12hrs x 5days (12/15-12/17); dc'ed by endoscopy technican - ( day 10 of illness and worsening; around this time is seen the worsening of COVID19 pts mainly driven by inflammatory response) -12/10 SP Cefepime #6 -12/08 SP IV Vancomycin #4 -f/u cx -Monitor CBC/CMP, temperatures -COVID 19 precautions -clarify goals of care -aspiration precautions -inflamatory markers -f/u cx -CXR am Thank you for consulting [facility]. Will continue to follow along with you. Discussed with RN, Subjective Allergies: Coded Allergies: No Known Allergies (Unverified , 07/28/14) Subjective afebrile >48hrs on NRB now Objective Vital Signs Last 24 Hour Vital Signs Date Time Temp Pulse Resp B/P (MAP) Pulse Ox O2 Delivery O2 Flow Rate FiO2 12/20/19 12:00 98.1 90 24 149/90 (109) 94 12/20/19 09:09 136/92 12/20/19 09:09 96 136/92 12/20/19 09:00 Non-Rebreather 12/20/19 08:00 99.6 96 24 136/92 (107) 96 12/20/19 07:58 94 Non-Rebreather 15.0 100 12/20/19 04:00 98.0 102 40 142/96 (111) 93 12/20/19 00:06 98.7 105 32 139/92 (108) 90 12/19/19 20:46 110 141/101 12/19/19 20:39 98.9 110 32 141/101 (114) 87 12/19/19 20:12 Non-Rebreather 12/19/19 19:41 93 Non-Rebreather 15.0 100 12/19/19 16:00 97.7 94 24 137/94 (108) 92 Height (Feet): 5 Height (Inches): 8.00 Weight (Pounds): 177 Objective not examined to limit COVID19 exposure Laboratory Tests Test 12/20/19 05:40 White Blood Count 14.7 K/UL (4.8-10.8) H Red Blood Count 3.36 M/UL (4.70-6.10) L Hemoglobin 9.8 G/DL (14.2-18.0) L Hematocrit 29.1 % (42.0-52.0) L Mean Corpuscular Volume 87 FL (80-99) Mean Corpuscular Hemoglobin 29.3 PG (27.0-31.0) Mean Corpuscular Hemoglobin Concent 33.7 G/DL (32.0-36.0) Red Cell Distribution Width 12.0 % (11.6-14.8) Platelet Count 127 K/UL (150-450) L Mean Platelet Volume 8.3 FL (6.5-10.1) Neutrophils (%) (Auto) % (45.0-75.0) Lymphocytes (%) (Auto) % (20.0-45.0) Monocytes (%) (Auto) % (1.0-10.0) Eosinophils (%) (Auto) % (0.0-3.0) Basophils (%) (Auto) % (0.0-2.0) Differential Total Cells Counted 100 Neutrophils % (Manual) 87 % (45-75) H Lymphocytes % (Manual) 8 % (20-45) L Monocytes % (Manual) 4 % (1-10) Eosinophils % (Manual) 1 % (0-3) Basophils % (Manual) 0 % (0-2) Band Neutrophils 0 % (0-8) Platelet Estimate Decreased L Platelet Morphology Normal Hypochromasia 2+ Anisocytosis 1+ Sodium Level 149 MMOL/L (136-145) H Potassium Level 3.8 MMOL/L (3.5-5.1) Chloride Level 111 MMOL/L (98-107) H Carbon Dioxide Level 29 MMOL/L (21-32) Anion Gap 9 mmol/L (5-15) Blood Urea Nitrogen 14 mg/dL (7-18) Creatinine 0.8 MG/DL (0.55-1.30) Estimat Glomerular Filtration Rate > 60 mL/min (>60) Glucose Level 186 MG/DL (74-106) H Calcium Level 8.0 MG/DL (8.5-10.1) L Phosphorus Level 2.5 MG/DL (2.5-4.9) Magnesium Level 1.7 MG/DL (1.8-2.4) L Ferritin 1184 NG/ML (8-388) H Total Bilirubin 0.9 MG/DL (0.2-1.0) Direct Bilirubin < 0.1 MG/DL (0.0-0.3) Aspartate Amino Transf (AST/SGOT) 40 U/L (15-37) H Alanine Aminotransferase (ALT/SGPT) 20 U/L (12-78) Alkaline Phosphatase 71 U/L (46-116) Lactate Dehydrogenase 609 U/L (81-234) H C-Reactive Protein, Quantitative 27.0 mg/dL (0.00-0.90) H Total Protein 5.3 G/DL (6.4-8.2) L Albumin 1.5 G/DL (3.4-5.0) L Current Medications Medications (Trade) Dose Ordered Sig/Wiley Route PRN Reason Start Time Stop Time Status Last Admin Dose Admin Acetaminophen (Tylenol) 650 mg Q6H PRN ORAL Temp >100.5 12/11/19 14:45 01/07/20 08:44 12/14/19 21:01 Acetaminophen (Tylenol) 650 mg Q6H PRN RECTAL Temp >100.5 12/15/19 10:15 01/14/20 10:14 12/15/19 16:59 Carvedilol (Coreg) 3.125 mg EVERY 12 HOURS ORAL 12/11/19 21:00 01/10/20 20:59 12/20/19 09:09 Chlorhexidine Gluconate (Milagro-Hex 2%) 1 applic DAILY@2000 TOPIC 12/11/19 20:00 03/06/20 19:59 12/19/19 20:46 Furosemide (Lasix) 40 mg EVERY 12 HOURS IV 12/20/19 12:00 01/19/20 11:59 12/20/19 12:08 Gabapentin (Neurontin) 300 mg Q8HR ORAL 12/11/19 22:00 01/06/20 00:00 12/20/19 13:37 Levetiracetam (Keppra) 1,000 mg Q12HR ORAL 12/11/19 21:00 01/06/20 00:00 12/20/19 09:03 Lisinopril (ZestriL) 10 mg DAILY ORAL 12/19/19 09:00 01/18/20 08:59 12/20/19 09:09 Magnesium Oxide (Mag-Ox 400mg) 400 mg THREE TIMES A DAY ORAL 12/14/19 18:00 01/13/20 17:59 12/20/19 12:08 Memantine (Namenda) 5 mg DAILY ORAL 12/12/19 09:00 01/06/20 16:59 12/20/19 09:03 Potassium Chloride (K-Dur) 40 meq BID ORAL 12/18/19 18:00 03/13/20 10:14 12/20/19 09:02 Vancomycin HCl (Vanco rx to dose) 1 ea DAILY PRN MISC Per rx protocol 12/16/19 12:30 01/15/20 12:29 Vancomycin HCl 1 gm/Dextrose 275 ml @ 183.708 mls/hr Q8H IVPB 12/18/19 10:00 12/23/19 09:59 12/20/19 09:10 Sujatha Sanchez M.D. December 20, 2019 15:21
[2019-12-20 16:00] VITALS: BP 125/77
--- NOTE | 2019-12-20 16:42 | NUR ---
CASE MANAGEMENT:REVIEW SI;COVID-19 PNEUMONIA AC HYPOXIC RESPIRATORY FAILURE. SEPTIC SHOCK. 99.6 108 24 149/90 94% 15 L NRB FIO2 @ 100% WBC 14.7 NA 149 BG 186 CA 8.0 MAG 1.7 FERRITIN 1184 AST 40 LDH 609 CRP 27.0 ALB 1.5 IS;LASIX IV Q12 HRS MAG SULFATE IV ONCE ZESTRIL PO QD K-DUR PO BID VANCOMYCIN IV Q8 HRS ZOSYN IV Q8 HRS MAG-OX PO TID COREG PO Q12 HRS MED SURG STATUS DCP; FROM [facility]
--- NOTE | 2019-12-20 18:59 | Progress Note ---
DATE: 12/20/2019 SUBJECTIVE: A 69-year-old male with altered mental status. He is very confused, disorganized, mood labile. He has got no logical plan for his own self-care, and got feelings of helplessness, hopelessness, low energy, poor appetite, and loss of interest in activity. That is why, he does require acute psychiatric inpatient treatment at this time. MENTAL STATUS EXAMINATION: This is a 69-year-old male. Appearance is disheveled. Attitude, irritable and agitated. Affect, guarded and restricted. Intellect poor. Mood depressed and anxious. Motor activity, psychomotor agitation. Attention span is poor. Orientation x2. Speech is pressured. Thought process, disorganized and illogical. Insight and judgment are poor. DIAGNOSIS: Major depressive disorder, mild, recurrent, with psychotic features. PLAN: Continue treatment with psychotropic medications to stabilize his mood. Twenty minutes of insight-oriented psychotherapy to help him recognize his psychiatric illness and help him convert his have recognition of his psychiatric illness so that he has better impulse control and recognition on the unit and better behavior with improved mood. Chart reviewed and discussed with staff. Seen and assessed in his room. Mirna Adkins M.D. : MACK JOB#: [id number] CC:
--- NOTE | 2019-12-20 19:11 | NUR ---
HAND-OFF: Report given to BARBARA Jordan.
--- NOTE | 2019-12-20 19:30 | NUR ---
NURSE NOTES: RECEIVED PATIENT FROM BARBARA BARAHONA. PATIENT IS AWAKE, AAOX1, ON NON-BREATHER AT 15L, O2 SAT 94%, NO ACUTE DISTRESS NOTED. PACEMAKER PRESENT. BILATERAL SOFT WRIST RESTRAINTS PRESENT, PULSES PRESENT, NO REDNESS. PATIENT HAS A RIGHT FEMORAL TRIPLE LUMEN CATH, INTACT AND PATENT. DRESSING IS CLEAN AND INTACT. PERKINS CATH IN PLACE, DRAINING WELL, PERKINS ANCHOR PRESENT. BED IS LOCKED AND LOW, BED ALARMS ACTIVE, SIDE RAILS UP X2 AND CALL LIGHT IS WITHIN REACH. WILL CONTINUE TO MONITOR.
[2019-12-20 20:00] VITALS: BP 135/98
[2019-12-20] MEDS: Dyna-Hex 2% Top Sol 2oz TOPIC SCH (21:32)
[2019-12-21] VITALS: BP 130/87
[2019-12-21] MEDS: Vancomycin 1gm/D5W 275ml IVPB SCH ×6 (02:39→17:02)
[2019-12-21 04:00] VITALS: BP 132/79
[2019-12-21 06:20] LABS: HEMATOCRIT 31.8 % (42.0-52.0); HEMOGLOBIN 10.4 G/DL (14.2-18.0); MEAN CORPUSCULAR VOLUME 87 FL (80-99); PLATELET COUNT 126 K/UL (150-450); RED BLOOD COUNT 3.63 M/UL (4.70-6.10); RED CELL DISTRIBUTION WIDTH 12.2 % (11.6-14.8); WHITE BLOOD COUNT 16.3 K/UL (4.8-10.8)
[2019-12-21 06:36] LABS: ANION GAP 8 mmol/L (5-15); BLOOD UREA NITROGEN 19 mg/dL (7-18); CALCIUM 8.7 MG/DL (8.5-10.1); CARBON DIOXIDE 34 MMOL/L (21-32); CHLORIDE 104 MMOL/L (98-107); CREATININE 1.1 MG/DL (0.55-1.30); POTASSIUM 3.6 MMOL/L (3.5-5.1); SODIUM 146 MMOL/L (136-145)
--- NOTE | 2019-12-21 07:32 | NUR ---
HAND-OFF: Report given to BARBARA Hernandez.
--- NOTE | 2019-12-21 07:40 | NUR ---
NURSE NOTES: Patient awake; on Non Rebreather mask, no sing of distress and shortness of breath; no sing of chest pain; Triple Lumen catheter on the right foot, TKO; side rails up x2, breaks engaged, bed at lowest position; call light within reach; will keep monitoring.
[2019-12-21 08:00] VITALS: BP 120/73
[2019-12-21] MEDS: Magnesium Oxide 400mg tab ORAL SCH ×3 (08:49→17:03)
[2019-12-21] MEDS: Lisinopril 10mg tab ORAL SCH (08:50)
[2019-12-21] MEDS: Memantine 5 MG TAB ORAL SCH ×2 (08:50→17:04)
--- NOTE | 2019-12-21 09:51 | General Progress Note ---
Assessment/Plan Problem List: (1) Suspected COVID-19 virus infection ICD Codes: Z20.828 - Contact with and (suspected) exposure to other viral communicable diseases SNOMED: 054953836 (2) Anemia ICD Codes: D64.9 - Anemia, unspecified SNOMED: 729809172 (3) Weak ICD Codes: R53.1 - Weakness SNOMED: 19145816 (4) COPD (chronic obstructive pulmonary disease) ICD Codes: J44.9 - Chronic obstructive pulmonary disease, unspecified SNOMED: 12309598 (5) Diabetes ICD Codes: E11.9 - Type 2 diabetes mellitus without complications SNOMED: 84588146 (6) Epileptic seizure, generalized ICD Codes: G40.309 - Generalized idiopathic epilepsy and epileptic syndromes, not intractable, without status epilepticus SNOMED: 98195583 (7) Altered mental status ICD Codes: R41.82 - Altered mental status, unspecified SNOMED: 774281571 Qualifiers: Qualified Codes: R41.82 - Altered mental status, unspecified (8) Hypotension ICD Codes: I95.9 - Hypotension, unspecified SNOMED: 76719465 Qualifiers: Qualified Codes: I95.9 - Hypotension, unspecified (9) UTI (urinary tract infection) ICD Codes: N39.0 - Urinary tract infection, site not specified SNOMED: 88171059 Status: unchanged Assessment/Plan: o2 pulm tx abx pt diet cbc bmp am Subjective Constitutional: Reports: weakness Allergies: Coded Allergies: No Known Allergies (Unverified , 07/28/14) All Systems: reviewed and negative except above Subjective sleepy calm in bed Objective Last 24 Hour Vital Signs Date Time Temp Pulse Resp B/P (MAP) Pulse Ox O2 Delivery O2 Flow Rate FiO2 12/21/19 09:00 Non-Rebreather 12/21/19 08:50 120/73 12/21/19 08:49 92 120/73 12/21/19 08:00 98.1 92 20 120/73 (89) 94 12/21/19 04:00 98.1 97 21 132/79 (96) 99 12/21/19 00:33 97 Non-Rebreather 15.0 100 12/21/19 00:00 98.1 104 20 130/87 (101) 97 12/20/19 21:00 Non-Rebreather 12/20/19 20:00 98.1 105 21 135/98 (110) 94 12/20/19 16:00 98.2 108 24 125/77 (93) 96 12/20/19 12:00 98.1 90 24 149/90 (109) 94 Intake and Output 12/20/19 12/21/19 19:00 07:00 Intake Total 551.124 ml 367.416 ml Output Total 1400 ml Balance -848.876 ml 367.416 ml IV Total 551.124 ml 367.416 ml Output Urine Total 1400 ml Laboratory Tests 12/21/19 04:00: White Blood Count 16.3H, Red Blood Count 3.63L, Hemoglobin 10.4L, Hematocrit 31.8L, Mean Corpuscular Volume 87, Mean Corpuscular Hemoglobin 28.7, Mean Corpuscular Hemoglobin Concent 32.8, Red Cell Distribution Width 12.2, Platelet Count 126L, Mean Platelet Volume 8.2, Neutrophils (%) (Auto) , Lymphocytes (%) ( Auto) , Monocytes (%) (Auto) , Eosinophils (%) (Auto) , Basophils (%) (Auto) , Neutrophils % (Manual) [Pending], Lymphocytes % (Manual) [Pending], Platelet Estimate [Pending], Platelet Morphology [Pending], Sodium Level 146H, Potassium Level 3.6, Chloride Level 104, Carbon Dioxide Level 34H, Anion Gap 8, Blood Urea Nitrogen 19H, Creatinine 1.1, Estimat Glomerular Filtration Rate > 60, Glucose Level 220H, Calcium Level 8.7 Height (Feet): 5 Height (Inches): 8.00 Weight (Pounds): 178 General Appearance: lethargic EENT: normal ENT inspection Neck: normal alignment Cardiovascular: normal rate, regular rhythm Respiratory/Chest: no respiratory distress, no accessory muscle use Extremities: normal inspection Skin: normal pigmentation Tee Novoa DO December 21, 2019 09:51
--- NOTE | 2019-12-21 11:01 | Pulmonology Progress Note ---
Subjective ROS Limited/Unobtainable: No Interval Events: on NRBM Constitutional: Reports: no symptoms Respiratory: Reports: dry cough, shortness of breath Cardiovascular: Reports: no symptoms Gastrointestinal/Abdominal: Reports: no symptoms Genitourinary: Reports: no symptoms Neurologic: Reports: no symptoms Allergies: Coded Allergies: No Known Allergies (Unverified , 07/28/14) All Systems: reviewed and negative except above Objective Last 24 Hour Vital Signs Date Time Temp Pulse Resp B/P (MAP) Pulse Ox O2 Delivery O2 Flow Rate FiO2 12/21/19 09:00 Non-Rebreather 12/21/19 08:50 120/73 12/21/19 08:49 92 120/73 12/21/19 08:00 98.1 92 20 120/73 (89) 94 12/21/19 04:00 98.1 97 21 132/79 (96) 99 12/21/19 00:33 97 Non-Rebreather 15.0 100 12/21/19 00:00 98.1 104 20 130/87 (101) 97 12/20/19 21:00 Non-Rebreather 12/20/19 20:00 98.1 105 21 135/98 (110) 94 12/20/19 16:00 98.2 108 24 125/77 (93) 96 12/20/19 12:00 98.1 90 24 149/90 (109) 94 Intake and Output 12/20/19 12/21/19 19:00 07:00 Intake Total 551.124 ml 367.416 ml Output Total 1400 ml Balance -848.876 ml 367.416 ml IV Total 551.124 ml 367.416 ml Output Urine Total 1400 ml General Appearance: no acute distress HEENT: normocephalic Respiratory/Chest: chest wall non-tender, decreased breath sounds Cardiovascular: normal peripheral pulses Abdomen: normal bowel sounds Laboratory Tests 12/21/19 04:00: White Blood Count 16.3H, Red Blood Count 3.63L, Hemoglobin 10.4L, Hematocrit 31.8L, Mean Corpuscular Volume 87, Mean Corpuscular Hemoglobin 28.7, Mean Corpuscular Hemoglobin Concent 32.8, Red Cell Distribution Width 12.2, Platelet Count 126L, Mean Platelet Volume 8.2, Neutrophils (%) (Auto) , Lymphocytes (%) ( Auto) , Monocytes (%) (Auto) , Eosinophils (%) (Auto) , Basophils (%) (Auto) , Neutrophils % (Manual) [Pending], Lymphocytes % (Manual) [Pending], Platelet Estimate [Pending], Platelet Morphology [Pending], Sodium Level 146H, Potassium Level 3.6, Chloride Level 104, Carbon Dioxide Level 34H, Anion Gap 8, Blood Urea Nitrogen 19H, Creatinine 1.1, Estimat Glomerular Filtration Rate > 60, Glucose Level 220H, Calcium Level 8.7 Current Medications Medications (Trade) Dose Ordered Sig/Wiley Route PRN Reason Start Time Stop Time Status Last Admin Dose Admin Acetaminophen (Tylenol) 650 mg Q6H PRN ORAL Temp >100.5 12/11/19 14:45 01/07/20 08:44 12/14/19 21:01 Acetaminophen (Tylenol) 650 mg Q6H PRN RECTAL Temp >100.5 12/15/19 10:15 01/14/20 10:14 12/15/19 16:59 Carvedilol (Coreg) 3.125 mg EVERY 12 HOURS ORAL 12/11/19 21:00 01/10/20 20:59 12/21/19 08:49 Chlorhexidine Gluconate (Milagro-Hex 2%) 1 applic DAILY@1999 TOPIC 12/11/19 20:00 03/06/20 19:59 12/20/19 21:32 Furosemide (Lasix) 40 mg EVERY 12 HOURS IV 12/20/19 12:00 01/19/20 11:59 12/21/19 08:49 Gabapentin (Neurontin) 300 mg Q8HR ORAL 12/11/19 22:00 01/06/20 00:00 12/20/19 13:37 Levetiracetam (Keppra) 1,000 mg Q12HR ORAL 12/11/19 21:00 01/06/20 00:00 12/21/19 08:49 Lisinopril (ZestriL) 10 mg DAILY ORAL 12/19/19 09:00 01/18/20 08:59 12/21/19 08:50 Magnesium Oxide (Mag-Ox 400mg) 400 mg THREE TIMES A DAY ORAL 12/14/19 18:00 01/13/20 17:59 12/21/19 08:49 Memantine (Namenda) 5 mg BID ORAL 12/21/19 18:00 01/06/20 16:59 Potassium Chloride (K-Dur) 40 meq BID ORAL 12/18/19 18:00 03/13/20 10:14 12/21/19 08:49 Vancomycin HCl (Vanco rx to dose) 1 ea DAILY PRN MISC Per rx protocol 12/16/19 12:30 01/15/20 12:29 Vancomycin HCl 1 gm/Dextrose 275 ml @ 183.708 mls/hr Q8H IVPB 12/18/19 10:00 12/23/19 09:59 12/21/19 09:04 Assessment/Plan Assessment/Plan IMPRESSION: 1. Cardiomyopathy. 2. Hypotension. 3. Left lung pneumonia. 4. longterm resident. 5. Positive COVID-19. DISCUSSION: 1. Continue isolation 2. Continue current medications. 3. Off pressors. 4. Continue O2/NRBM 5. Pulmonary hygiene. 6. Broad-spectrum antibiotics. 7. I will follow. 8. Continue to wean down O2; 9. Continue diuresis, on Lasix 40 mg IV BID Amber Walters Omar Syed MD December 21, 2019 11:01
--- NOTE | 2019-12-21 11:05 | NUR ---
NURSE NOTES: I received order from MD Montalvo to put patient on Venturi mask; Order carried out as order given;
[2019-12-21 12:00] VITALS: BP 112/71
--- NOTE | 2019-12-21 12:35 | Nephrology Progress Note ---
Assessment/Plan Problem List: (1) Electrolyte imbalance (2) Suspected COVID-19 virus infection (3) Hypotension Assessment: Resolved (4) Sepsis Assessment Patient's current problem from renal standpoint of view is hypokalemia and other electrolyte imbalances His other conditions: Patient presented with acute renal failure however it is now resolved Patient presented with septic shock was on pressors however now resolved Sepsis leukocytosis improving Patient has COVID-19 pneumonia Hypertension Cardiomyopathy status post AICD Previous CVA with right residual weakness Seizure disorders Plan Mag sulfate IV today and as needed Stable from renal standpoint of view Stop IV fluids Start oral potassium, magnesium, phosphorus supplements We will continue to monitor electrolytes and chemistries Continue per consultants Per orders Subjective ROS Limited/Unobtainable: No Constitutional: Reports: malaise, weakness Objective Objective Last 24 Hour Vital Signs Date Time Temp Pulse Resp B/P (MAP) Pulse Ox O2 Delivery O2 Flow Rate FiO2 12/21/19 09:00 Non-Rebreather 12/21/19 08:50 120/73 12/21/19 08:49 92 120/73 12/21/19 08:00 98.1 92 20 120/73 (89) 94 12/21/19 04:00 98.1 97 21 132/79 (96) 99 12/21/19 00:33 97 Non-Rebreather 15.0 100 12/21/19 00:00 98.1 104 20 130/87 (101) 97 12/20/19 21:00 Non-Rebreather 12/20/19 20:00 98.1 105 21 135/98 (110) 94 12/20/19 16:00 98.2 108 24 125/77 (93) 96 Intake and Output 12/20/19 12/21/19 19:00 07:00 Intake Total 551.124 ml 367.416 ml Output Total 1400 ml Balance -848.876 ml 367.416 ml IV Total 551.124 ml 367.416 ml Output Urine Total 1400 ml Laboratory Tests 12/21/19 04:00: White Blood Count 16.3H, Red Blood Count 3.63L, Hemoglobin 10.4L, Hematocrit 31.8L, Mean Corpuscular Volume 87, Mean Corpuscular Hemoglobin 28.7, Mean Corpuscular Hemoglobin Concent 32.8, Red Cell Distribution Width 12.2, Platelet Count 126L, Mean Platelet Volume 8.2, Neutrophils (%) (Auto) , Lymphocytes (%) ( Auto) , Monocytes (%) (Auto) , Eosinophils (%) (Auto) , Basophils (%) (Auto) , Differential Total Cells Counted 100, Neutrophils % (Manual) 86H, Lymphocytes % (Manual) 6L, Monocytes % (Manual) 5, Eosinophils % (Manual) 2, Basophils % ( Manual) 1, Band Neutrophils 0, Platelet Estimate DecreasedL, Platelet Morphology Normal, Hypochromasia 1+, Anisocytosis 1+, Sodium Level 146H, Potassium Level 3.6, Chloride Level 104, Carbon Dioxide Level 34H, Anion Gap 8, Blood Urea Nitrogen 19H, Creatinine 1.1, Estimat Glomerular Filtration Rate > 60 , Glucose Level 220H, Calcium Level 8.7 Height (Feet): 5 Height (Inches): 8.00 Weight (Pounds): 178 Cardiovascular: tachycardia Respiratory/Chest: decreased breath sounds Abdomen: distended Objective No change Ed Vega MD December 21, 2019 12:35
[2019-12-21 16:00] VITALS: BP 126/72
--- NOTE | 2019-12-21 16:00 | Cardiac Electrophysiology PN ---
Assessment/Plan Assessment/Plan 1. S/P Shock due to cardiomyopathy EF 40 and sepsis. BNP is 736. On Abx by Dr. Sanchez. Resolved 2. CHF EF 40%. On Coreg 3.125 bid , change Lasix 40 iv bid to 40 po daily and Lisinopril 10 daily 3. Status post right-sided MERT ICD. 4. Hypertension 5. History of CVA with residual weakness. 6. COVID-19 PNA, off the vent 7. Hypernatremia. Change iv Lasix to po DW RN Subjective Subjective In Covid isolation. No new events. Objective Last 24 Hour Vital Signs Date Time Temp Pulse Resp B/P (MAP) Pulse Ox O2 Delivery O2 Flow Rate FiO2 12/21/19 12:00 97.7 96 20 112/71 (85) 96 12/21/19 09:00 Non-Rebreather 12/21/19 08:50 120/73 12/21/19 08:49 92 120/73 12/21/19 08:00 98.1 92 20 120/73 (89) 94 12/21/19 04:00 98.1 97 21 132/79 (96) 99 12/21/19 00:33 97 Non-Rebreather 15.0 100 12/21/19 00:00 98.1 104 20 130/87 (101) 97 12/20/19 21:00 Non-Rebreather 12/20/19 20:00 98.1 105 21 135/98 (110) 94 12/20/19 16:00 98.2 108 24 125/77 (93) 96 Intake and Output 12/20/19 12/21/19 19:00 07:00 Intake Total 551.124 ml 367.416 ml Output Total 1400 ml Balance -848.876 ml 367.416 ml IV Total 551.124 ml 367.416 ml Output Urine Total 1400 ml Laboratory Tests Test 12/21/19 04:00 White Blood Count 16.3 K/UL (4.8-10.8) H Red Blood Count 3.63 M/UL (4.70-6.10) L Hemoglobin 10.4 G/DL (14.2-18.0) L Hematocrit 31.8 % (42.0-52.0) L Mean Corpuscular Volume 87 FL (80-99) Mean Corpuscular Hemoglobin 28.7 PG (27.0-31.0) Mean Corpuscular Hemoglobin Concent 32.8 G/DL (32.0-36.0) Red Cell Distribution Width 12.2 % (11.6-14.8) Platelet Count 126 K/UL (150-450) L Mean Platelet Volume 8.2 FL (6.5-10.1) Neutrophils (%) (Auto) % (45.0-75.0) Lymphocytes (%) (Auto) % (20.0-45.0) Monocytes (%) (Auto) % (1.0-10.0) Eosinophils (%) (Auto) % (0.0-3.0) Basophils (%) (Auto) % (0.0-2.0) Differential Total Cells Counted 100 Neutrophils % (Manual) 86 % (45-75) H Lymphocytes % (Manual) 6 % (20-45) L Monocytes % (Manual) 5 % (1-10) Eosinophils % (Manual) 2 % (0-3) Basophils % (Manual) 1 % (0-2) Band Neutrophils 0 % (0-8) Platelet Estimate Decreased L Platelet Morphology Normal Hypochromasia 1+ Anisocytosis 1+ Sodium Level 146 MMOL/L (136-145) H Potassium Level 3.6 MMOL/L (3.5-5.1) Chloride Level 104 MMOL/L (98-107) Carbon Dioxide Level 34 MMOL/L (21-32) H Anion Gap 8 mmol/L (5-15) Blood Urea Nitrogen 19 mg/dL (7-18) H Creatinine 1.1 MG/DL (0.55-1.30) Estimat Glomerular Filtration Rate > 60 mL/min (>60) Glucose Level 220 MG/DL (74-106) H Calcium Level 8.7 MG/DL (8.5-10.1) Objective HEAD AND NECK: Mild JVD. LUNGS: Decreased breath sounds. CARDIOVASCULAR: Regular S1 and S2 with no gallop. ABDOMEN: Soft. EXTREMITIES: 1+ pitting edema. Defibrillator is in right subclavian. Shai Bullard MD December 21, 2019 16:00
[2019-12-21 20:20] VITALS: BP 110/61
[2019-12-21] MEDS: Dyna-Hex 2% Top Sol 2oz TOPIC SCH (20:53)
--- NOTE | 2019-12-21 20:56 | Infectious Diseases Prog Note ---
Assessment/Plan Assessment/Plan Assessment: Septic shock-SP Fever; improving Mild leukocytosis, fluctuating -12/14 u/a wbc 15-20, nit neg, leuk +1; ucx p Bcx NTD -u/a neg -Bcx Neg Probable PNA- 2ry to COVID19 (from [place] with confirmed cases) Acute hypoxic respiratory failure- was on NC, now on NRB- increasing FIo2 requiremetns -12/19 CXR: Unchanged bilateral infiltrates, likely pneumonia, since prior exam of 3 days earlier. -12/16 CXR: Bilateral interstitial and airspace infiltrates are again demonstrated.Appearance is overall unchanged. There may be a small left pleural effusion,unchange -12/15 CRP 41.6, ferritin 1468 -12/14 CXR: . Worsening bilateral interstitial and airspace opacities. Probable small left pleural effusion. Difficult to evaluate the right costophrenic angle due to overlying pacemaker. -12/11 CXR: Slightly improved bilateral interstitial and airspace infiltrates versus edema -12/09 CXR: Bilateral mid and lower lung interstitial disease, new since prior study.Possible developing left pleural effusion Ferritn >2000, CRP 22.3 -12/05 SARS-COV2 PCR + -CXR: Left basilar atelectasis and/or infiltrate TRAE, improving HTN cadiomyopathy s/p AICD CVA x3 w/ residual R side weakness seizure disorder [place] resident ([facility]) Plan: -Continue empiric IV Vancomycin #/ -12/18 SP Zosyn #5 - SPSolumedrol 40mg IV 12hrs x 5days (12/15-12/17); dc'ed by assistant professor of geography - ( day 10 of illness and worsening; around this time is seen the worsening of COVID19 pts mainly driven by inflammatory response) -12/10 SP Cefepime #6 -12/08 SP IV Vancomycin #4 -f/u cx -Monitor CBC/CMP, temperatures -COVID 19 precautions -clarify goals of care -aspiration precautions -inflammatory markers -f/u cx -monitor CXR Thank you for consulting [facility]. Will continue to follow along with you. Discussed with RN, Subjective Allergies: Coded Allergies: No Known Allergies (Unverified , 07/28/14) Subjective Afebrile. on NRB. Pt reports feeling comfortable. Objective Vital Signs Last 24 Hour Vital Signs Date Time Temp Pulse Resp B/P (MAP) Pulse Ox O2 Delivery O2 Flow Rate FiO2 12/21/19 20:20 99.0 99 21 110/61 (77) 99 12/21/19 20:12 Non-Rebreather 12/21/19 16:00 99.0 92 20 126/72 (90) 98 12/21/19 12:00 97.7 96 20 112/71 (85) 96 12/21/19 09:00 Non-Rebreather 12/21/19 08:50 120/73 12/21/19 08:49 92 120/73 12/21/19 08:00 98.1 92 20 120/73 (89) 94 12/21/19 04:00 98.1 97 21 132/79 (96) 99 12/21/19 00:33 97 Non-Rebreather 15.0 100 12/21/19 00:00 98.1 104 20 130/87 (101) 97 12/20/19 21:00 Non-Rebreather Height (Feet): 5 Height (Inches): 8.00 Weight (Pounds): 178 General Appearance: no acute distress HEENT: atraumatic, anicteric Respiratory/Chest: no respiratory distress, no accessory muscle use Abdomen: soft, non tender, non distended Neurologic/Psychiatric: alert, responsive Laboratory Tests Test 12/21/19 04:00 White Blood Count 16.3 K/UL (4.8-10.8) H Red Blood Count 3.63 M/UL (4.70-6.10) L Hemoglobin 10.4 G/DL (14.2-18.0) L Hematocrit 31.8 % (42.0-52.0) L Mean Corpuscular Volume 87 FL (80-99) Mean Corpuscular Hemoglobin 28.7 PG (27.0-31.0) Mean Corpuscular Hemoglobin Concent 32.8 G/DL (32.0-36.0) Red Cell Distribution Width 12.2 % (11.6-14.8) Platelet Count 126 K/UL (150-450) L Mean Platelet Volume 8.2 FL (6.5-10.1) Neutrophils (%) (Auto) % (45.0-75.0) Lymphocytes (%) (Auto) % (20.0-45.0) Monocytes (%) (Auto) % (1.0-10.0) Eosinophils (%) (Auto) % (0.0-3.0) Basophils (%) (Auto) % (0.0-2.0) Differential Total Cells Counted 100 Neutrophils % (Manual) 86 % (45-75) H Lymphocytes % (Manual) 6 % (20-45) L Monocytes % (Manual) 5 % (1-10) Eosinophils % (Manual) 2 % (0-3) Basophils % (Manual) 1 % (0-2) Band Neutrophils 0 % (0-8) Platelet Estimate Decreased L Platelet Morphology Normal Hypochromasia 1+ Anisocytosis 1+ Sodium Level 146 MMOL/L (136-145) H Potassium Level 3.6 MMOL/L (3.5-5.1) Chloride Level 104 MMOL/L (98-107) Carbon Dioxide Level 34 MMOL/L (21-32) H Anion Gap 8 mmol/L (5-15) Blood Urea Nitrogen 19 mg/dL (7-18) H Creatinine 1.1 MG/DL (0.55-1.30) Estimat Glomerular Filtration Rate > 60 mL/min (>60) Glucose Level 220 MG/DL (74-106) H Calcium Level 8.7 MG/DL (8.5-10.1) Current Medications Medications (Trade) Dose Ordered Sig/Wiley Route PRN Reason Start Time Stop Time Status Last Admin Dose Admin Acetaminophen (Tylenol) 650 mg Q6H PRN ORAL Temp >100.5 12/11/19 14:45 01/07/20 08:44 12/14/19 21:01 Acetaminophen (Tylenol) 650 mg Q6H PRN RECTAL Temp >100.5 12/15/19 10:15 01/14/20 10:14 12/15/19 16:59 Carvedilol (Coreg) 3.125 mg EVERY 12 HOURS ORAL 12/11/19 21:00 01/10/20 20:59 12/21/19 08:49 Chlorhexidine Gluconate (Milagro-Hex 2%) 1 applic DAILY@1999 TOPIC 12/11/19 20:00 03/06/20 19:59 12/20/19 21:32 Furosemide (Lasix) 40 mg DAILY ORAL 12/22/19 09:00 01/21/20 08:59 Gabapentin (Neurontin) 300 mg Q8HR ORAL 12/11/19 22:00 01/06/20 00:00 12/21/19 13:14 Levetiracetam (Keppra) 1,000 mg Q12HR ORAL 12/11/19 21:00 01/06/20 00:00 12/21/19 08:49 Lisinopril (ZestriL) 10 mg DAILY ORAL 12/19/19 09:00 01/18/20 08:59 12/21/19 08:50 Magnesium Oxide (Mag-Ox 400mg) 400 mg THREE TIMES A DAY ORAL 12/14/19 18:00 01/13/20 17:59 12/21/19 17:03 Memantine (Namenda) 5 mg BID ORAL 12/21/19 18:00 01/06/20 16:59 12/21/19 17:04 Potassium Chloride (K-Dur) 40 meq BID ORAL 12/18/19 18:00 03/13/20 10:14 12/21/19 17:03 Vancomycin HCl (Vanco rx to dose) 1 ea DAILY PRN MISC Per rx protocol 12/16/19 12:30 01/15/20 12:29 Vancomycin HCl 1 gm/Dextrose 275 ml @ 183.708 mls/hr Q8H IVPB 12/18/19 10:00 12/23/19 09:59 12/21/19 17:02 Hari Baron MD December 21, 2019 20:56
--- NOTE | 2019-12-21 23:45 | Progress Note ---
DATE: 12/21/2019 SUBJECTIVE: The patient is a 69-year-old male patient who came in to the hospital the reason why he is in the hospital is because of rule out COVID-19, but also has COPD, sepsis, pyelonephritis, altered mental status, diabetes, and electrolyte imbalance. He has got altered mental status, confusion, decline in cognition below his baseline, and feelings of helplessness, hopelessness, low energy. That is why, he does require daily psychiatric consultation. His attending has requested daily psychiatric consultation. MENTAL STATUS EXAMINATION: This is a 69-year-old male. Appearance is disheveled. Attitude, irritable and agitated. Affect, guarded and restricted. Intellect poor. Mood, depressed and anxious. Motor activity, psychomotor agitation. Insight and judgment are poor. DIAGNOSIS: Major depressive disorder, mild, recurrent with psychotic features. PLAN: Treat this patient consisting of Namenda 5 mg daily and Neurontin 300 mg q.8h. Twenty minutes of insight-oriented psychotherapy to help him to have understanding of psychiatric and medical conditions so that he will have better recognition and impulse control on the unit and improve his mood . Continue Neurontin 300 mg q.8h. and then also continue Namenda 5 mg daily, which I am going to actually increase to 5 mg twice a day. Twenty minutes of insight-oriented psychotherapy provided. Chart was reviewed. Discussed with staff. The patient was seen and assessed in his room. Mirna Adkins M.D. DR: MACK JOB#: [id number] CC:
[2019-12-22] VITALS: BP 98/55
[2019-12-22] MEDS: Vancomycin 1gm/D5W 275ml IVPB SCH ×4 (02:30→09:13)
[2019-12-22 04:41] VITALS: BP 105/67
[2019-12-22 05:47] LABS: HEMATOCRIT 25.9 % (42.0-52.0); HEMOGLOBIN 8.7 G/DL (14.2-18.0); MEAN CORPUSCULAR VOLUME 86 FL (80-99); PLATELET COUNT 122 K/UL (150-450); RED BLOOD COUNT 3.01 M/UL (4.70-6.10)
[2019-12-22 05:56] LABS: ANION GAP 4 mmol/L (5-15); BLOOD UREA NITROGEN 22 mg/dL (7-18); CALCIUM 7.2 MG/DL (8.5-10.1); CARBON DIOXIDE 31 MMOL/L (21-32); CHLORIDE 110 MMOL/L (98-107); CREATININE 1.1 MG/DL (0.55-1.30); POTASSIUM 3.2 MMOL/L (3.5-5.1); SODIUM 145 MMOL/L (136-145)
--- NOTE | 2019-12-22 07:08 | NUR ---
HAND-OFF: Report given to Mary Ortega RN.
--- NOTE | 2019-12-22 07:41 | NUR ---
NURSE NOTES: Patient awake, on re-breather mask, per night shift manager nurse RT is aware that patient should be on Venturi mask, waiting for RT to change the mask; [place] in place, drains yellow urine; side rails up x2, breaks engaged, bed at lowest position, bed alarm on; call light within reach; will keep monitoring.
[2019-12-22 08:00] VITALS: BP 132/78
--- NOTE | 2019-12-22 08:20 | NUR ---
RESPIRATORY NOTES Per doctor's order, patient was switched from 100% non-rebreather mask to venturi mask.Ho Addendum: 12/22/19 at 0841 by JANNET BREAUX RT Continuation: However, oxygen saturation quickly fell to 83%. Patient was placed back on non-rebreather mask. Oxygen saturations are now back up in the 90s. BARBARA aware. Will continue to monitor.
[2019-12-22] MEDS: Furosemide 40mg tab ORAL SCH (09:13)
[2019-12-22] MEDS: Memantine 5 MG TAB ORAL SCH ×2 (09:13→17:18)
[2019-12-22] MEDS: Magnesium Oxide 400mg tab ORAL SCH ×3 (09:13→17:18)
[2019-12-22] MEDS: Lisinopril 10mg tab ORAL SCH (09:13)
--- NOTE | 2019-12-22 09:14 | Pulmonology Progress Note ---
Subjective ROS Limited/Unobtainable: No Interval Events: on NRBM; no change from yesterday Constitutional: Reports: no symptoms Respiratory: Reports: dry cough, shortness of breath Cardiovascular: Reports: no symptoms Gastrointestinal/Abdominal: Reports: no symptoms Genitourinary: Reports: no symptoms Neurologic: Reports: no symptoms Allergies: Coded Allergies: No Known Allergies (Unverified , 07/28/14) All Systems: reviewed and negative except above Objective Last 24 Hour Vital Signs Date Time Temp Pulse Resp B/P (MAP) Pulse Ox O2 Delivery O2 Flow Rate FiO2 12/22/19 08:00 99.7 98 19 132/78 (96) 97 12/22/19 04:41 97.4 96 22 105/67 (80) 96 12/22/19 00:00 97.7 101 21 98/55 (69) 96 12/21/19 20:53 99 110/61 12/21/19 20:20 99.0 99 21 110/61 (77) 99 12/21/19 20:18 96 Non-Rebreather 15.0 100 12/21/19 20:12 Non-Rebreather 12/21/19 16:00 99.0 92 20 126/72 (90) 98 12/21/19 12:00 97.7 96 20 112/71 (85) 96 Intake and Output 12/21/19 12/22/19 19:00 07:00 Intake Total 760.416 ml 275.000 ml Output Total 500 ml Balance 260.416 ml 275.000 ml Intake Oral 118 ml IV Total 642.416 ml 275.000 ml Output Urine Total 500 ml General Appearance: no acute distress HEENT: atraumatic, anicteric Respiratory/Chest: chest wall non-tender, decreased breath sounds Cardiovascular: normal peripheral pulses Abdomen: soft, non tender, non distended Neurologic/Psychiatric: alert, responsive Laboratory Tests 12/22/19 05:20: White Blood Count 13.0H, Red Blood Count 3.01L, Hemoglobin 8.7L, Hematocrit 25.9L, Mean Corpuscular Volume 86, Mean Corpuscular Hemoglobin 29.0, Mean Corpuscular Hemoglobin Concent 33.7, Red Cell Distribution Width 12.0, Platelet Count 122L, Mean Platelet Volume 8.5, Neutrophils (%) (Auto) , Lymphocytes (%) ( Auto) , Monocytes (%) (Auto) , Eosinophils (%) (Auto) , Basophils (%) (Auto) , Neutrophils % (Manual) [Pending], Lymphocytes % (Manual) [Pending], Platelet Estimate [Pending], Platelet Morphology [Pending], Erythrocyte Sedimentation Rate 58H, Sodium Level 145, Potassium Level 3.2L, Chloride Level 110H, Carbon Dioxide Level 31, Anion Gap 4L, Blood Urea Nitrogen 22H, Creatinine 1.1, Estimat Glomerular Filtration Rate > 60, Glucose Level 195H, Calcium Level 7.2L , Ferritin 1339H, Lactate Dehydrogenase 415H, C-Reactive Protein, Quantitative 20.1H Current Medications Medications (Trade) Dose Ordered Sig/Wiley Route PRN Reason Start Time Stop Time Status Last Admin Dose Admin Acetaminophen (Tylenol) 650 mg Q6H PRN ORAL Temp >100.5 12/11/19 14:45 01/07/20 08:44 12/14/19 21:01 Acetaminophen (Tylenol) 650 mg Q6H PRN RECTAL Temp >100.5 12/15/19 10:15 01/14/20 10:14 12/15/19 16:59 Carvedilol (Coreg) 3.125 mg EVERY 12 HOURS ORAL 12/11/19 21:00 01/10/20 20:59 12/21/19 08:49 Chlorhexidine Gluconate (Milagro-Hex 2%) 1 applic DAILY@2000 TOPIC 12/11/19 20:00 03/06/20 19:59 12/21/19 20:53 Furosemide (Lasix) 40 mg DAILY ORAL 12/22/19 09:00 01/21/20 08:59 Gabapentin (Neurontin) 300 mg Q8HR ORAL 12/11/19 22:00 01/06/20 00:00 12/22/19 05:13 Levetiracetam (Keppra) 1,000 mg Q12HR ORAL 12/11/19 21:00 01/06/20 00:00 12/21/19 20:53 Lisinopril (ZestriL) 10 mg DAILY ORAL 12/19/19 09:00 01/18/20 08:59 12/21/19 08:50 Magnesium Oxide (Mag-Ox 400mg) 400 mg THREE TIMES A DAY ORAL 12/14/19 18:00 01/13/20 17:59 12/21/19 17:03 Memantine (Namenda) 5 mg BID ORAL 12/21/19 18:00 01/06/20 16:59 12/21/19 17:04 Potassium Chloride (K-Dur) 40 meq BID ORAL 12/18/19 18:00 03/13/20 10:14 12/21/19 17:03 Vancomycin HCl (Vanco rx to dose) 1 ea DAILY PRN MISC Per rx protocol 12/16/19 12:30 01/15/20 12:29 Vancomycin HCl 1 gm/Dextrose 275 ml @ 183.708 mls/hr Q8H IVPB 12/18/19 10:00 12/23/19 09:59 12/22/19 02:30 Assessment/Plan Assessment/Plan IMPRESSION: 1. Cardiomyopathy. 2. Hypotension. 3. Left lung pneumonia. 4. longterm resident. 5. Positive COVID-19. DISCUSSION: 1. Continue isolation 2. Continue current medications. 3. Off pressors. 4. Continue O2/NRBM 5. Pulmonary hygiene. 6. Broad-spectrum antibiotics. 7. I will follow. 8. Continue to wean down O2; 9. Continue diuresis, on Lasix 40 mg IV BID Mike Montalvo M.D. Mike Montalvo MD December 22, 2019 09:14
--- NOTE | 2019-12-22 09:45 | Nephrology Progress Note ---
Assessment/Plan Problem List: (1) Electrolyte imbalance (2) Suspected COVID-19 virus infection (3) Hypotension Assessment: Resolved (4) Sepsis Assessment Patient's current problem from renal standpoint of view is hypokalemia and other electrolyte imbalances His other conditions: Patient presented with acute renal failure however it is now resolved Patient presented with septic shock was on pressors however now resolved Sepsis leukocytosis improving Patient has COVID-19 pneumonia Hypertension Cardiomyopathy status post AICD Previous CVA with right residual weakness Seizure disorders Plan Mag sulfate IV as needed Potassium supplements Stable from renal standpoint of view Continue per consultants We will continue to monitor electrolytes and chemistries Subjective ROS Limited/Unobtainable: No Constitutional: Reports: malaise, weakness Objective Objective Last 24 Hour Vital Signs Date Time Temp Pulse Resp B/P (MAP) Pulse Ox O2 Delivery O2 Flow Rate FiO2 12/22/19 09:13 132/78 12/22/19 09:13 98 132/78 12/22/19 08:00 99.7 98 19 132/78 (96) 97 12/22/19 04:41 97.4 96 22 105/67 (80) 96 12/22/19 00:00 97.7 101 21 98/55 (69) 96 12/21/19 20:53 99 110/61 12/21/19 20:20 99.0 99 21 110/61 (77) 99 12/21/19 20:18 96 Non-Rebreather 15.0 100 12/21/19 20:12 Non-Rebreather 12/21/19 16:00 99.0 92 20 126/72 (90) 98 12/21/19 12:00 97.7 96 20 112/71 (85) 96 Intake and Output 12/21/19 12/22/19 19:00 07:00 Intake Total 760.416 ml 275.000 ml Output Total 500 ml Balance 260.416 ml 275.000 ml Intake Oral 118 ml IV Total 642.416 ml 275.000 ml Output Urine Total 500 ml Laboratory Tests 12/22/19 05:20: White Blood Count 13.0H, Red Blood Count 3.01L, Hemoglobin 8.7L, Hematocrit 25.9L, Mean Corpuscular Volume 86, Mean Corpuscular Hemoglobin 29.0, Mean Corpuscular Hemoglobin Concent 33.7, Red Cell Distribution Width 12.0, Platelet Count 122L, Mean Platelet Volume 8.5, Neutrophils (%) (Auto) , Lymphocytes (%) ( Auto) , Monocytes (%) (Auto) , Eosinophils (%) (Auto) , Basophils (%) (Auto) , Neutrophils % (Manual) [Pending], Lymphocytes % (Manual) [Pending], Platelet Estimate [Pending], Platelet Morphology [Pending], Erythrocyte Sedimentation Rate 58H, Sodium Level 145, Potassium Level 3.2L, Chloride Level 110H, Carbon Dioxide Level 31, Anion Gap 4L, Blood Urea Nitrogen 22H, Creatinine 1.1, Estimat Glomerular Filtration Rate > 60, Glucose Level 195H, Calcium Level 7.2L , Ferritin 1339H, Lactate Dehydrogenase 415H, C-Reactive Protein, Quantitative 20.1H Height (Feet): 5 Height (Inches): 8.00 Weight (Pounds): 173 General Appearance: no apparent distress Cardiovascular: tachycardia Respiratory/Chest: decreased breath sounds Abdomen: distended Objective No change Ed Vega MD December 22, 2019 09:45
--- NOTE | 2019-12-22 10:31 | General Progress Note ---
Assessment/Plan Problem List: (1) Suspected COVID-19 virus infection ICD Codes: Z20.828 - Contact with and (suspected) exposure to other viral communicable diseases SNOMED: 945685939 (2) Anemia ICD Codes: D64.9 - Anemia, unspecified SNOMED: 780654179 (3) Weak ICD Codes: R53.1 - Weakness SNOMED: 38412056 (4) COPD (chronic obstructive pulmonary disease) ICD Codes: J44.9 - Chronic obstructive pulmonary disease, unspecified SNOMED: 35717094 (5) Diabetes ICD Codes: E11.9 - Type 2 diabetes mellitus without complications SNOMED: 44657945 (6) Epileptic seizure, generalized ICD Codes: G40.309 - Generalized idiopathic epilepsy and epileptic syndromes, not intractable, without status epilepticus SNOMED: 10777121 (7) Altered mental status ICD Codes: R41.82 - Altered mental status, unspecified SNOMED: 338622242 Qualifiers: Qualified Codes: R41.82 - Altered mental status, unspecified (8) Hypotension ICD Codes: I95.9 - Hypotension, unspecified SNOMED: 79822305 Qualifiers: Qualified Codes: I95.9 - Hypotension, unspecified (9) UTI (urinary tract infection) ICD Codes: N39.0 - Urinary tract infection, site not specified SNOMED: 43128893 Status: unchanged Assessment/Plan: o2 pulm tx abx pt diet cbc bmp am Subjective Constitutional: Reports: weakness Allergies: Coded Allergies: No Known Allergies (Unverified , 07/28/14) All Systems: reviewed and negative except above Subjective sleepy calm in bed Objective Last 24 Hour Vital Signs Date Time Temp Pulse Resp B/P (MAP) Pulse Ox O2 Delivery O2 Flow Rate FiO2 12/22/19 09:13 132/78 12/22/19 09:13 98 132/78 12/22/19 08:00 99.7 98 19 132/78 (96) 97 12/22/19 04:41 97.4 96 22 105/67 (80) 96 12/22/19 00:00 97.7 101 21 98/55 (69) 96 12/21/19 20:53 99 110/61 12/21/19 20:20 99.0 99 21 110/61 (77) 99 12/21/19 20:18 96 Non-Rebreather 15.0 100 12/21/19 20:12 Non-Rebreather 12/21/19 16:00 99.0 92 20 126/72 (90) 98 12/21/19 12:00 97.7 96 20 112/71 (85) 96 Intake and Output 12/21/19 12/22/19 19:00 07:00 Intake Total 760.416 ml 275.000 ml Output Total 500 ml Balance 260.416 ml 275.000 ml Intake Oral 118 ml IV Total 642.416 ml 275.000 ml Output Urine Total 500 ml Laboratory Tests 12/22/19 05:20: White Blood Count 13.0H, Red Blood Count 3.01L, Hemoglobin 8.7L, Hematocrit 25.9L, Mean Corpuscular Volume 86, Mean Corpuscular Hemoglobin 29.0, Mean Corpuscular Hemoglobin Concent 33.7, Red Cell Distribution Width 12.0, Platelet Count 122L, Mean Platelet Volume 8.5, Neutrophils (%) (Auto) , Lymphocytes (%) ( Auto) , Monocytes (%) (Auto) , Eosinophils (%) (Auto) , Basophils (%) (Auto) , Differential Total Cells Counted 100, Neutrophils % (Manual) 81H, Lymphocytes % (Manual) 9L, Monocytes % (Manual) 7, Eosinophils % (Manual) 3, Basophils % ( Manual) 0, Band Neutrophils 0, Platelet Estimate DecreasedL, Platelet Morphology Normal, Polychromasia 1+, Hypochromasia 1+, Erythrocyte Sedimentation Rate 58H, Sodium Level 145, Potassium Level 3.2L, Chloride Level 110H, Carbon Dioxide Level 31, Anion Gap 4L, Blood Urea Nitrogen 22H, Creatinine 1.1, Estimat Glomerular Filtration Rate > 60, Glucose Level 195H, Calcium Level 7.2L, Ferritin 1339H, Lactate Dehydrogenase 415H, C-Reactive Protein, Quantitative 20.1H Height (Feet): 5 Height (Inches): 8.00 Weight (Pounds): 173 General Appearance: lethargic EENT: normal ENT inspection Neck: normal alignment Cardiovascular: normal rate, regular rhythm Respiratory/Chest: no respiratory distress, no accessory muscle use Extremities: normal inspection Skin: normal pigmentation Tee Novoa NicoSavannah CLARK December 22, 2019 10:31
--- NOTE | 2019-12-22 11:44 | Progress Note ---
DATE: 12/22/2019 SUBJECTIVE: This is a 69-year-old male patient. He has COPD, sepsis, pyelonephritis, rule out COVID-19. He has diabetes, electrolyte imbalance, altered mental status, confusion, decline in cognition below his baseline, and feelings of helplessness, hopelessness, low energy, and poor appetite. That is why, he does require daily psychiatric consultation. Attending has requested daily psychiatric consultation because of his mood lability, agitation, and altered mental status, which is worsened by stress of his medical illness. That is why, his attending has requested daily psychiatric consultation. MENTAL STATUS EXAMINATION: This is a 69-year-old male. Appearance is disheveled. Attitude, irritable and agitated. Affect, guarded and restricted. Intellect poor. Mood, depressed and anxious. Motor activity, psychomotor agitation. Insight and judgment is poor. DIAGNOSIS: Major depressive disorder, mild, recurrent with psychotic features. PLAN: Namenda 5 daily and Neurontin 300 mg q.8h. A 20 minutes of insight-oriented psychotherapy to help him recognize his cognitive physical condition so that he also have better recognition and better impulse control on the unit and continued to be followed throughout hospital course by Psychiatry. Chart reviewed. Discussed with staff. Seen and assessed at bedside. Mirna Adkins M.D. DR: MACK JOB#: [id number] CC:
[2019-12-22 12:00] VITALS: BP 110/64
[2019-12-22 16:00] VITALS: BP 115/70
--- NOTE | 2019-12-22 19:08 | NUR ---
HAND-OFF: Report given to BARBARA Ram.
--- NOTE | 2019-12-22 19:30 | NUR ---
NURSE NOTES: Received patient comfortably resting in bed, no SOB, on non-rebreather mask, and on bilateral soft wrist restraints.
[2019-12-22 20:33] VITALS: BP 111/63
[2019-12-22] MEDS: Dyna-Hex 2% Top Sol 2oz TOPIC SCH (20:45)
--- NOTE | 2019-12-22 23:19 | Cardiac Electrophysiology PN ---
Assessment/Plan Assessment/Plan 1. S/P Shock due to EF 40% and sepsis. BNP is 736. On Abx by Dr. Sanchez. Resolved 2. CHF EF 40%. On Coreg 3.125 bid , LAisx 40 po daily and Lisinopril 10 daily 3. Status post right-sided MERT ICD. 4. Hypertension 5. History of CVA with residual weakness. 6. COVID-19 PNA, off the vent 7. Hypernatremia. On po Sharath ESCUDERO RN Subjective Subjective In Covid isolation. No new events.In NAD Objective Last 24 Hour Vital Signs Date Time Temp Pulse Resp B/P (MAP) Pulse Ox O2 Delivery O2 Flow Rate FiO2 12/22/19 20:45 97 111/63 12/22/19 20:33 98.1 97 36 111/63 (79) 95 12/22/19 20:11 Non-Rebreather 12/22/19 16:00 98.7 97 20 115/70 (85) 98 12/22/19 12:00 98.6 92 17 110/64 (79) 97 12/22/19 09:13 132/78 12/22/19 09:13 98 132/78 12/22/19 09:00 Non-Rebreather 12/22/19 08:00 99.7 98 19 132/78 (96) 97 12/22/19 04:41 97.4 96 22 105/67 (80) 96 12/22/19 00:00 97.7 101 21 98/55 (69) 96 Intake and Output 12/21/19 12/22/19 19:00 07:00 Intake Total 760.416 ml 275.000 ml Output Total 500 ml Balance 260.416 ml 275.000 ml Intake Oral 118 ml IV Total 642.416 ml 275.000 ml Output Urine Total 500 ml Laboratory Tests Test 12/22/19 05:20 White Blood Count 13.0 K/UL (4.8-10.8) H Red Blood Count 3.01 M/UL (4.70-6.10) L Hemoglobin 8.7 G/DL (14.2-18.0) L Hematocrit 25.9 % (42.0-52.0) L Mean Corpuscular Volume 86 FL (80-99) Mean Corpuscular Hemoglobin 29.0 PG (27.0-31.0) Mean Corpuscular Hemoglobin Concent 33.7 G/DL (32.0-36.0) Red Cell Distribution Width 12.0 % (11.6-14.8) Platelet Count 122 K/UL (150-450) L Mean Platelet Volume 8.5 FL (6.5-10.1) Neutrophils (%) (Auto) % (45.0-75.0) Lymphocytes (%) (Auto) % (20.0-45.0) Monocytes (%) (Auto) % (1.0-10.0) Eosinophils (%) (Auto) % (0.0-3.0) Basophils (%) (Auto) % (0.0-2.0) Differential Total Cells Counted 100 Neutrophils % (Manual) 81 % (45-75) H Lymphocytes % (Manual) 9 % (20-45) L Monocytes % (Manual) 7 % (1-10) Eosinophils % (Manual) 3 % (0-3) Basophils % (Manual) 0 % (0-2) Band Neutrophils 0 % (0-8) Platelet Estimate Decreased L Platelet Morphology Normal Polychromasia 1+ Hypochromasia 1+ Erythrocyte Sedimentation Rate 58 MM/HR (0-20) H Sodium Level 145 MMOL/L (136-145) Potassium Level 3.2 MMOL/L (3.5-5.1) L Chloride Level 110 MMOL/L (98-107) H Carbon Dioxide Level 31 MMOL/L (21-32) Anion Gap 4 mmol/L (5-15) L Blood Urea Nitrogen 22 mg/dL (7-18) H Creatinine 1.1 MG/DL (0.55-1.30) Estimat Glomerular Filtration Rate > 60 mL/min (>60) Glucose Level 195 MG/DL (74-106) H Calcium Level 7.2 MG/DL (8.5-10.1) L Ferritin 1339 NG/ML (8-388) H Lactate Dehydrogenase 415 U/L (81-234) H C-Reactive Protein, Quantitative 20.1 mg/dL (0.00-0.90) H Objective HEAD AND NECK: Mild JVD. LUNGS: Decreased breath sounds. CARDIOVASCULAR: Regular S1 and S2 with no gallop. ABDOMEN: Soft. EXTREMITIES: 1+ pitting edema. Defibrillator is in right subclavian. Shai Bullard MD December 22, 2019 23:19
[2019-12-23 00:18] VITALS: BP 107/70
[2019-12-23 04:00] VITALS: BP 123/68
[2019-12-23 06:27] LABS: BASOPHILS % (AUTO) 0.6 % (0.0-2.0); EOSINOPHILS % (AUTO) 1.9 % (0.0-3.0); HEMATOCRIT 28.5 % (42.0-52.0); HEMOGLOBIN 9.2 G/DL (14.2-18.0); LYMPHOCYTES % (AUTO) 6.4 % (20.0-45.0); MEAN CORPUSCULAR VOLUME 88 FL (80-99); MONOCYTES % (AUTO) 6.5 % (1.0-10.0); NEUTROPHILS % (AUTO) 84.6 % (45.0-75.0); PLATELET COUNT 147 K/UL (150-450); RED BLOOD COUNT 3.24 M/UL (4.70-6.10); RED CELL DISTRIBUTION WIDTH 12.3 % (11.6-14.8)
[2019-12-23 06:39] LABS: ANION GAP 7 mmol/L (5-15); BLOOD UREA NITROGEN 39 mg/dL (7-18); CALCIUM 8.5 MG/DL (8.5-10.1); CARBON DIOXIDE 33 MMOL/L (21-32); CHLORIDE 106 MMOL/L (98-107); CREATININE 1.8 MG/DL (0.55-1.30); POTASSIUM 4.3 MMOL/L (3.5-5.1); SODIUM 146 MMOL/L (136-145)
--- NOTE | 2019-12-23 07:14 | NUR ---
HAND-OFF: Report given to Mary Ortega RN.
--- NOTE | 2019-12-23 07:19 | NUR ---
NURSE NOTES: Patient awake, alert x1; on non rebreather mask; [place] in place, drains yellow urine; Right Femoral triple lumen in place, dressing dry and intact; SCD in place; side rails up x2, breaks engaged, bed at lowest position; call light within reach; will keep monitoring.
[2019-12-23 08:00] VITALS: BP 123/68
[2019-12-23] MEDS: Lisinopril 10mg tab ORAL SCH (08:53)
[2019-12-23] MEDS: Magnesium Oxide 400mg tab ORAL SCH (08:53)
[2019-12-23] MEDS: Memantine 5 MG TAB ORAL SCH ×2 (08:53→17:26)
[2019-12-23] MEDS: Furosemide 40mg tab ORAL SCH (08:54)
--- NOTE | 2019-12-23 10:12 | General Progress Note ---
Assessment/Plan Problem List: (1) Suspected COVID-19 virus infection ICD Codes: Z20.828 - Contact with and (suspected) exposure to other viral communicable diseases SNOMED: 563826611 (2) Anemia ICD Codes: D64.9 - Anemia, unspecified SNOMED: 395556115 (3) Weak ICD Codes: R53.1 - Weakness SNOMED: 08032347 (4) COPD (chronic obstructive pulmonary disease) ICD Codes: J44.9 - Chronic obstructive pulmonary disease, unspecified SNOMED: 28919475 (5) Diabetes ICD Codes: E11.9 - Type 2 diabetes mellitus without complications SNOMED: 92004550 (6) Epileptic seizure, generalized ICD Codes: G40.309 - Generalized idiopathic epilepsy and epileptic syndromes, not intractable, without status epilepticus SNOMED: 69664863 (7) Altered mental status ICD Codes: R41.82 - Altered mental status, unspecified SNOMED: 003242695 Qualifiers: Qualified Codes: R41.82 - Altered mental status, unspecified (8) Hypotension ICD Codes: I95.9 - Hypotension, unspecified SNOMED: 23157764 Qualifiers: Qualified Codes: I95.9 - Hypotension, unspecified (9) UTI (urinary tract infection) ICD Codes: N39.0 - Urinary tract infection, site not specified SNOMED: 97805512 Status: unchanged Assessment/Plan: o2 pulm tx abx pt diet cbc bmp am Subjective Constitutional: Reports: weakness Allergies: Coded Allergies: No Known Allergies (Unverified , 07/28/14) All Systems: reviewed and negative except above Subjective sleepy calm in bed Objective Last 24 Hour Vital Signs Date Time Temp Pulse Resp B/P (MAP) Pulse Ox O2 Delivery O2 Flow Rate FiO2 12/23/19 09:00 Non-Rebreather 12/23/19 08:53 123/68 12/23/19 08:53 94 123/68 12/23/19 08:00 97.9 94 20 123/68 (86) 100 12/23/19 04:00 97.9 92 28 123/68 (86) 96 12/23/19 00:18 97.9 100 28 107/70 (82) 98 12/22/19 21:36 95 Non-Rebreather 15.0 100 12/22/19 20:45 97 111/63 12/22/19 20:33 98.1 97 36 111/63 (79) 95 12/22/19 20:11 Non-Rebreather 12/22/19 16:00 98.7 97 20 115/70 (85) 98 12/22/19 12:00 98.6 92 17 110/64 (79) 97 Intake and Output 12/22/19 12/23/19 19:00 07:00 Intake Total 367.416 ml Balance 367.416 ml IV Total 367.416 ml Laboratory Tests 12/23/19 05:21: White Blood Count 14.0H, Red Blood Count 3.24L, Hemoglobin 9.2L, Hematocrit 28.5L, Mean Corpuscular Volume 88, Mean Corpuscular Hemoglobin 28.4, Mean Corpuscular Hemoglobin Concent 32.3, Red Cell Distribution Width 12.3, Platelet Count 147L, Mean Platelet Volume 7.6, Neutrophils (%) (Auto) 84.6H, Lymphocytes (%) (Auto) 6.4L, Monocytes (%) (Auto) 6.5, Eosinophils (%) (Auto) 1.9, Basophils (%) (Auto) 0.6, Sodium Level 146H, Potassium Level 4.3, Chloride Level 106, Carbon Dioxide Level 33H, Anion Gap 7, Blood Urea Nitrogen 39H, Creatinine 1.8#H, Estimat Glomerular Filtration Rate 45.3, Glucose Level 224H, Calcium Level 8.5 Height (Feet): 5 Height (Inches): 8.00 Weight (Pounds): 178 General Appearance: lethargic EENT: normal ENT inspection Neck: normal alignment Cardiovascular: normal rate, regular rhythm Respiratory/Chest: no respiratory distress, no accessory muscle use Extremities: normal inspection Skin: normal pigmentation Tee Novoa NicoSavannah CLARK December 23, 2019 10:12
--- NOTE | 2019-12-23 10:52 | Diagnostic Imaging Report ---
Indication: Shortness of breath Technique: One view of the chest Comparison: 12/20/2019 Findings: Right chest AICD is again demonstrated. Bilateral infiltrates appear unchanged on the right, may be minimally improved on the left. The heart remains enlarged. Impression: Minimally improved left, unchanged right infiltrates, since prior exam of 3 days earlier
[2019-12-23 12:00] VITALS: BP 112/79
--- NOTE | 2019-12-23 12:23 | Nephrology Progress Note ---
Assessment/Plan Problem List: (1) Electrolyte imbalance (2) Suspected COVID-19 virus infection (3) Hypotension Assessment: Resolved (4) Sepsis Assessment Patient's current problem from renal standpoint of view is hypokalemia and other electrolyte imbalances His other conditions: Patient presented with acute renal failure however it is now resolved Patient presented with septic shock was on pressors however now resolved Sepsis leukocytosis improving Patient has COVID-19 pneumonia Hypertension Cardiomyopathy status post AICD Previous CVA with right residual weakness Seizure disorders Plan In view of worsening renal failure and rise of creatinine to 1.8 will temporarily hold Lasix and lisinopril Discussed with Dr. Francisco Continue rest Previously: Magnesium and potassium as needed Stable from renal standpoint of view Continue per consultants We will continue to monitor electrolytes and chemistries Subjective ROS Limited/Unobtainable: No Constitutional: Reports: malaise Objective Objective Last 24 Hour Vital Signs Date Time Temp Pulse Resp B/P (MAP) Pulse Ox O2 Delivery O2 Flow Rate FiO2 12/23/19 09:00 Non-Rebreather 12/23/19 08:53 123/68 12/23/19 08:53 94 123/68 12/23/19 08:00 97.9 94 20 123/68 (86) 100 12/23/19 04:00 97.9 92 28 123/68 (86) 96 12/23/19 00:18 97.9 100 28 107/70 (82) 98 12/22/19 21:36 95 Non-Rebreather 15.0 100 12/22/19 20:45 97 111/63 12/22/19 20:33 98.1 97 36 111/63 (79) 95 12/22/19 20:11 Non-Rebreather 12/22/19 16:00 98.7 97 20 115/70 (85) 98 Intake and Output 12/22/19 12/23/19 19:00 07:00 Intake Total 367.416 ml Balance 367.416 ml IV Total 367.416 ml Laboratory Tests 12/23/19 05:21: White Blood Count 14.0H, Red Blood Count 3.24L, Hemoglobin 9.2L, Hematocrit 28.5L, Mean Corpuscular Volume 88, Mean Corpuscular Hemoglobin 28.4, Mean Corpuscular Hemoglobin Concent 32.3, Red Cell Distribution Width 12.3, Platelet Count 147L, Mean Platelet Volume 7.6, Neutrophils (%) (Auto) 84.6H, Lymphocytes (%) (Auto) 6.4L, Monocytes (%) (Auto) 6.5, Eosinophils (%) (Auto) 1.9, Basophils (%) (Auto) 0.6, Sodium Level 146H, Potassium Level 4.3, Chloride Level 106, Carbon Dioxide Level 33H, Anion Gap 7, Blood Urea Nitrogen 39H, Creatinine 1.8#H, Estimat Glomerular Filtration Rate 45.3, Glucose Level 224H, Calcium Level 8.5 Height (Feet): 5 Height (Inches): 8.00 Weight (Pounds): 178 General Appearance: no apparent distress, lethargic Cardiovascular: tachycardia Respiratory/Chest: decreased breath sounds Abdomen: soft Objective No change Ed Vega MD December 23, 2019 12:23
--- NOTE | 2019-12-23 13:53 | Infectious Diseases Prog Note ---
Assessment/Plan Assessment/Plan Assessment: Septic shock-SP Fever;SP Mild leukocytosis, fluctuating -12/14 u/a wbc 15-20, nit neg, leuk +1 Bcx Neg -u/a neg -Bcx Neg Probable PNA- 2ry to COVID19 (from [place] with confirmed cases) Acute hypoxic respiratory failure- was on NC, now on NRB- increasing FIo2 requiremetns -12/22 CXR: Minimally improved left, unchanged right infiltrates, since prior exam of 3 days earlier -12/19 CXR: Unchanged bilateral infiltrates, likely pneumonia, since prior exam of 3 days earlier. -12/16 CXR: Bilateral interstitial and airspace infiltrates are again demonstrated.Appearance is overall unchanged. There may be a small left pleural effusion,unchange -12/15 CRP 41.6, ferritin 1468 -12/14 CXR: . Worsening bilateral interstitial and airspace opacities. Probable small left pleural effusion. Difficult to evaluate the right costophrenic angle due to overlying pacemaker. -12/11 CXR: Slightly improved bilateral interstitial and airspace infiltrates versus edema -12/09 CXR: Bilateral mid and lower lung interstitial disease, new since prior study.Possible developing left pleural effusion Ferritn >2000, CRP 22.3 -12/05 SARS-COV2 PCR + -CXR: Left basilar atelectasis and/or infiltrate TRAE, improving HTN cadiomyopathy s/p AICD CVA x3 w/ residual R side weakness seizure disorder [place] resident ([facility]) Plan: -Continue to monitor off abx -12/21 SP IV Vancomycin #5 -12/18 SP Zosyn #5 - SPSolumedrol 40mg IV 12hrs x 5days (12/15-12/17); dc'ed by economic adviser - ( day 10 of illness and worsening; around this time is seen the worsening of COVID19 pts mainly driven by inflammatory response) -12/10 SP Cefepime #6 -12/08 SP IV Vancomycin #4 -f/u cx -Monitor CBC/CMP, temperatures -COVID 19 precautions -clarify goals of care -aspiration precautions -inflammatory markers -f/u cx -monitor CXR -u/a w/ reflex, Bcx x2 Thank you for consulting [facility]. Will continue to follow along with you. Discussed with RN, Subjective Allergies: Coded Allergies: No Known Allergies (Unverified , 07/28/14) Subjective afebrile >48hrs on NRB now Objective Vital Signs Last 24 Hour Vital Signs Date Time Temp Pulse Resp B/P (MAP) Pulse Ox O2 Delivery O2 Flow Rate FiO2 12/23/19 12:00 97.9 93 18 112/79 (90) 98 12/23/19 09:00 Non-Rebreather 12/23/19 08:53 123/68 12/23/19 08:53 94 123/68 12/23/19 08:00 97.9 94 20 123/68 (86) 100 12/23/19 04:00 97.9 92 28 123/68 (86) 96 12/23/19 00:18 97.9 100 28 107/70 (82) 98 12/22/19 21:36 95 Non-Rebreather 15.0 100 12/22/19 20:45 97 111/63 12/22/19 20:33 98.1 97 36 111/63 (79) 95 12/22/19 20:11 Non-Rebreather 12/22/19 16:00 98.7 97 20 115/70 (85) 98 Height (Feet): 5 Height (Inches): 8.00 Weight (Pounds): 178 Objective not examined to limit COVID19 exposure Laboratory Tests Test 12/23/19 05:21 White Blood Count 14.0 K/UL (4.8-10.8) H Red Blood Count 3.24 M/UL (4.70-6.10) L Hemoglobin 9.2 G/DL (14.2-18.0) L Hematocrit 28.5 % (42.0-52.0) L Mean Corpuscular Volume 88 FL (80-99) Mean Corpuscular Hemoglobin 28.4 PG (27.0-31.0) Mean Corpuscular Hemoglobin Concent 32.3 G/DL (32.0-36.0) Red Cell Distribution Width 12.3 % (11.6-14.8) Platelet Count 147 K/UL (150-450) L Mean Platelet Volume 7.6 FL (6.5-10.1) Neutrophils (%) (Auto) 84.6 % (45.0-75.0) H Lymphocytes (%) (Auto) 6.4 % (20.0-45.0) L Monocytes (%) (Auto) 6.5 % (1.0-10.0) Eosinophils (%) (Auto) 1.9 % (0.0-3.0) Basophils (%) (Auto) 0.6 % (0.0-2.0) Sodium Level 146 MMOL/L (136-145) H Potassium Level 4.3 MMOL/L (3.5-5.1) Chloride Level 106 MMOL/L (98-107) Carbon Dioxide Level 33 MMOL/L (21-32) H Anion Gap 7 mmol/L (5-15) Blood Urea Nitrogen 39 mg/dL (7-18) H Creatinine 1.8 MG/DL (0.55-1.30) #H Estimat Glomerular Filtration Rate 45.3 mL/min (>60) Glucose Level 224 MG/DL (74-106) H Calcium Level 8.5 MG/DL (8.5-10.1) Current Medications Medications (Trade) Dose Ordered Sig/Wiley Route PRN Reason Start Time Stop Time Status Last Admin Dose Admin Acetaminophen (Tylenol) 650 mg Q6H PRN ORAL Temp >100.5 12/11/19 14:45 01/07/20 08:44 12/14/19 21:01 Acetaminophen (Tylenol) 650 mg Q6H PRN RECTAL Temp >100.5 12/15/19 10:15 01/14/20 10:14 12/15/19 16:59 Carvedilol (Coreg) 3.125 mg EVERY 12 HOURS ORAL 12/11/19 21:00 01/10/20 20:59 12/23/19 08:53 Chlorhexidine Gluconate (Milagro-Hex 2%) 1 applic DAILY@1999 TOPIC 12/11/19 20:00 03/06/20 19:59 12/22/19 20:45 Gabapentin (Neurontin) 300 mg Q8HR ORAL 12/11/19 22:00 01/06/20 00:00 12/23/19 13:07 Levetiracetam (Keppra) 1,000 mg Q12HR ORAL 12/11/19 21:00 01/06/20 00:00 12/23/19 08:53 Memantine (Namenda) 5 mg BID ORAL 12/21/19 18:00 01/06/20 16:59 12/23/19 08:53 Sujatha Sanchez M.D. December 23, 2019 13:53
--- NOTE | 2019-12-23 14:01 | Cardiac Electrophysiology PN ---
Assessment/Plan Assessment/Plan 1. S/P Shock due to EF 40% and sepsis. BNP is 736. On Abx by Dr. Sanchez. Resolved 2. CHF EF 40%. On Coreg 3.125 bid. DC LAisx and Lisinopril for ARF 3. Status post right-sided MERT ICD. 4. Hypertension 5. History of CVA with residual weakness. 6. COVID-19 PNA, off the vent 7. Hypernatremia. DC Lasix 8. Acute renal failure.Cr up from 0.9 to 1.8. Hold Lasix and Lisinopril DW RN and Dr Vega Subjective Subjective In Covid isolation. No new events.In NAD. Creatinine is rising. Awaiting negative Covid to go back to [facility] Objective Last 24 Hour Vital Signs Date Time Temp Pulse Resp B/P (MAP) Pulse Ox O2 Delivery O2 Flow Rate FiO2 12/23/19 12:00 97.9 93 18 112/79 (90) 98 12/23/19 09:00 Non-Rebreather 12/23/19 08:53 123/68 12/23/19 08:53 94 123/68 12/23/19 08:00 97.9 94 20 123/68 (86) 100 12/23/19 04:00 97.9 92 28 123/68 (86) 96 12/23/19 00:18 97.9 100 28 107/70 (82) 98 12/22/19 21:36 95 Non-Rebreather 15.0 100 12/22/19 20:45 97 111/63 12/22/19 20:33 98.1 97 36 111/63 (79) 95 12/22/19 20:11 Non-Rebreather 12/22/19 16:00 98.7 97 20 115/70 (85) 98 Intake and Output 12/22/19 12/23/19 19:00 07:00 Intake Total 367.416 ml Balance 367.416 ml IV Total 367.416 ml Laboratory Tests Test 12/23/19 05:21 White Blood Count 14.0 K/UL (4.8-10.8) H Red Blood Count 3.24 M/UL (4.70-6.10) L Hemoglobin 9.2 G/DL (14.2-18.0) L Hematocrit 28.5 % (42.0-52.0) L Mean Corpuscular Volume 88 FL (80-99) Mean Corpuscular Hemoglobin 28.4 PG (27.0-31.0) Mean Corpuscular Hemoglobin Concent 32.3 G/DL (32.0-36.0) Red Cell Distribution Width 12.3 % (11.6-14.8) Platelet Count 147 K/UL (150-450) L Mean Platelet Volume 7.6 FL (6.5-10.1) Neutrophils (%) (Auto) 84.6 % (45.0-75.0) H Lymphocytes (%) (Auto) 6.4 % (20.0-45.0) L Monocytes (%) (Auto) 6.5 % (1.0-10.0) Eosinophils (%) (Auto) 1.9 % (0.0-3.0) Basophils (%) (Auto) 0.6 % (0.0-2.0) Sodium Level 146 MMOL/L (136-145) H Potassium Level 4.3 MMOL/L (3.5-5.1) Chloride Level 106 MMOL/L (98-107) Carbon Dioxide Level 33 MMOL/L (21-32) H Anion Gap 7 mmol/L (5-15) Blood Urea Nitrogen 39 mg/dL (7-18) H Creatinine 1.8 MG/DL (0.55-1.30) #H Estimat Glomerular Filtration Rate 45.3 mL/min (>60) Glucose Level 224 MG/DL (74-106) H Calcium Level 8.5 MG/DL (8.5-10.1) Objective HEAD AND NECK: Mild JVD. LUNGS: Decreased breath sounds. CARDIOVASCULAR: Regular S1 and S2 with no gallop. ABDOMEN: Soft. EXTREMITIES: 1+ pitting edema. Defibrillator is in right subclavian. Shai Bullard MD December 23, 2019 14:01
[2019-12-23 16:00] VITALS: BP 121/76
--- NOTE | 2019-12-23 16:29 | Pulmonology Progress Note ---
Subjective ROS Limited/Unobtainable: No Interval Events: on NRBM; no change from yesterday Constitutional: Reports: no symptoms Respiratory: Reports: dry cough, shortness of breath Cardiovascular: Reports: no symptoms Gastrointestinal/Abdominal: Reports: no symptoms Genitourinary: Reports: no symptoms Neurologic: Reports: no symptoms Allergies: Coded Allergies: No Known Allergies (Unverified , 07/28/14) All Systems: reviewed and negative except above Objective Last 24 Hour Vital Signs Date Time Temp Pulse Resp B/P (MAP) Pulse Ox O2 Delivery O2 Flow Rate FiO2 12/23/19 12:00 97.9 93 18 112/79 (90) 98 12/23/19 09:00 Non-Rebreather 12/23/19 08:53 123/68 12/23/19 08:53 94 123/68 12/23/19 08:00 97.9 94 20 123/68 (86) 100 12/23/19 04:00 97.9 92 28 123/68 (86) 96 12/23/19 00:18 97.9 100 28 107/70 (82) 98 12/22/19 21:36 95 Non-Rebreather 15.0 100 12/22/19 20:45 97 111/63 12/22/19 20:33 98.1 97 36 111/63 (79) 95 12/22/19 20:11 Non-Rebreather Intake and Output 12/22/19 12/23/19 19:00 07:00 Intake Total 367.416 ml Balance 367.416 ml IV Total 367.416 ml General Appearance: no acute distress HEENT: atraumatic, anicteric Respiratory/Chest: chest wall non-tender, decreased breath sounds Cardiovascular: normal peripheral pulses Abdomen: soft, non tender, non distended Neurologic/Psychiatric: alert, responsive Laboratory Tests 12/23/19 05:21: White Blood Count 14.0H, Red Blood Count 3.24L, Hemoglobin 9.2L, Hematocrit 28.5L, Mean Corpuscular Volume 88, Mean Corpuscular Hemoglobin 28.4, Mean Corpuscular Hemoglobin Concent 32.3, Red Cell Distribution Width 12.3, Platelet Count 147L, Mean Platelet Volume 7.6, Neutrophils (%) (Auto) 84.6H, Lymphocytes (%) (Auto) 6.4L, Monocytes (%) (Auto) 6.5, Eosinophils (%) (Auto) 1.9, Basophils (%) (Auto) 0.6, Sodium Level 146H, Potassium Level 4.3, Chloride Level 106, Carbon Dioxide Level 33H, Anion Gap 7, Blood Urea Nitrogen 39H, Creatinine 1.8#H, Estimat Glomerular Filtration Rate 45.3, Glucose Level 224H, Calcium Level 8.5 Current Medications Medications (Trade) Dose Ordered Sig/Wiley Route PRN Reason Start Time Stop Time Status Last Admin Dose Admin Acetaminophen (Tylenol) 650 mg Q6H PRN ORAL Temp >100.5 12/11/19 14:45 01/07/20 08:44 12/14/19 21:01 Acetaminophen (Tylenol) 650 mg Q6H PRN RECTAL Temp >100.5 12/15/19 10:15 01/14/20 10:14 12/15/19 16:59 Carvedilol (Coreg) 3.125 mg EVERY 12 HOURS ORAL 12/11/19 21:00 01/10/20 20:59 12/23/19 08:53 Chlorhexidine Gluconate (Milagro-Hex 2%) 1 applic DAILY@1999 TOPIC 12/11/19 20:00 03/06/20 19:59 12/22/19 20:45 Gabapentin (Neurontin) 300 mg Q8HR ORAL 12/11/19 22:00 01/06/20 00:00 12/23/19 13:07 Levetiracetam (Keppra) 1,000 mg Q12HR ORAL 12/11/19 21:00 01/06/20 00:00 12/23/19 08:53 Memantine (Namenda) 5 mg BID ORAL 12/21/19 18:00 01/06/20 16:59 12/23/19 08:53 Assessment/Plan Assessment/Plan IMPRESSION: 1. Cardiomyopathy. 2. Hypotension. 3. Left lung pneumonia. 4. alf resident. 5. Positive COVID-19. DISCUSSION: 1. Continue isolation 2. Continue current medications. 3. Off pressors. 4. Continue O2/NRBM 5. Pulmonary hygiene. 6. Broad-spectrum antibiotics. 7. I will follow. 8. Continue to wean down O2; 9. Continue diuresis, on Lasix 40 mg IV BID; CXR unchanged Amber Walters Omar Syed MD December 23, 2019 16:28
--- NOTE | 2019-12-23 17:03 | NUR ---
P.T Weekly Progress Notes: Pt being seen this past week of skilled P.T services. Pt. responded poorly from the tx due to lack of participation characterized by uncooperative behavior. i.e pt would refuse and becomes resistive upon attempt to functional mobility training. Poor progress has achieved since P.T evaluation. Pt currently is dependent/MAX A for all aspects of bed mobilities and bed positioning. Plan: will DC skilled P.T as pt is no longer benefiting from the service. Recommend DC to Snf SNF.
--- NOTE | 2019-12-23 17:44 | NUR ---
MEDICAL STAFF ASSISTANT NOTE CALL MADE TO PATIENTS INSURANCE, HIAR MCLAIN @ [phone]. VOICEMAIL LEFT. WILL FOLLOW UP.
--- NOTE | 2019-12-23 19:45 | NUR ---
NURSE NOTES: Receive pt in the bed . Patient is awake, alert x1; on non rebreather mask. Pt has Right Femoral triple lumen in place, dressing dry and intact. SCD in place and pt has Mosqueda cath. Bed in the lower position, locked and alarm on. Call light within reach. We will keep monitoring the pt
--- NOTE | 2019-12-23 19:49 | NUR ---
HAND-OFF: Report given to BARBARA Conway.
[2019-12-23 21:00] VITALS: BP 128/71
[2019-12-23] MEDS: Dyna-Hex 2% Top Sol 2oz TOPIC SCH (22:04)
[2019-12-24] VITALS (30 sets, daily range): BP systolic 86–118; BP diastolic 50–72
--- NOTE | 2019-12-24 00:55 | NUR ---
NURSE NOTES: pt is hyperventilating. I called RT to check the pt, Rt came and increased his oxygen. We will keep monitoring the pt
--- NOTE | 2019-12-24 01:34 | NUR ---
Increasing the O2 helped the pt. The pt RR went down from 36 to 30. we will keep monitoring the pt
--- NOTE | 2019-12-24 07:26 | NUR ---
HAND-OFF: Report given to BARBARA Fall. Addendum: 12/24/19 at 0728 by SHANNON SABILLON RN Endorsed the pt about RR and what RT did.
[2019-12-24 07:38] LABS: BASOPHILS % (AUTO) 0.5 % (0.0-2.0); HEMATOCRIT 30.3 % (42.0-52.0); HEMOGLOBIN 9.6 G/DL (14.2-18.0); LYMPHOCYTES % (AUTO) 5.6 % (20.0-45.0); MEAN CORPUSCULAR VOLUME 88 FL (80-99); MONOCYTES % (AUTO) 8.7 % (1.0-10.0); NEUTROPHILS % (AUTO) 84.1 % (45.0-75.0); PLATELET COUNT 176 K/UL (150-450); RED BLOOD COUNT 3.45 M/UL (4.70-6.10); RED CELL DISTRIBUTION WIDTH 12.4 % (11.6-14.8); WHITE BLOOD COUNT 14.3 K/UL (4.8-10.8)
[2019-12-24 07:48] LABS: ANION GAP 8 mmol/L (5-15); BLOOD UREA NITROGEN 67 mg/dL (7-18); CALCIUM 9.6 MG/DL (8.5-10.1); CARBON DIOXIDE 34 MMOL/L (21-32); CHLORIDE 105 MMOL/L (98-107); CREATININE 2.8 MG/DL (0.55-1.30); POTASSIUM 4.7 MMOL/L (3.5-5.1); SODIUM 147 MMOL/L (136-145)
--- NOTE | 2019-12-24 08:24 | NUR ---
NURSE NOTES: pt appears asleep / lethargic, arousable to voice, pt on nrb 99%, attempted to wean to venturi mask 10L, but pt desat to 84%, resumed pt on nrb , back to 93-95%, repositioned pt, turned towards left side hob elevated bed in lowest position, locked. montero patent intact, tlc right groin intact. will monitor.
--- NOTE | 2019-12-24 08:33 | NUR ---
NURSE NOTES: PAGED DR DUGGAN FOR ABG RESULTS. AWAITING CALL BACK
--- NOTE | 2019-12-24 08:37 | NUR ---
NURSE NOTES: LEFT MSG FOR DR LEE FOR TRIAL OFF RESTRAINTS NO INDICATION AT THIS TIME. PT WEAK AND NOT ATTEMPTING TO REMOVE NRBM
[2019-12-24] MEDS: Memantine 5 MG TAB ORAL SCH (08:50)
--- NOTE | 2019-12-24 09:02 | NUR ---
NURSE NOTES: AWAIT BED FOR TRANSFER TO [facility] PRESSURE ROOM W BIPAP 26/[address] DUGGAN
--- NOTE | 2019-12-24 09:28 | Nephrology Progress Note ---
Assessment/Plan Problem List: (1) TRAE (acute kidney injury) (2) Electrolyte imbalance (3) Suspected COVID-19 virus infection (4) Hypotension Assessment: Resolved (5) Sepsis Assessment Patient's current problem from renal standpoint of view is hypokalemia and other electrolyte imbalances His other conditions: Patient presented with acute renal failure however it is now resolved Patient presented with septic shock was on pressors however now resolved Sepsis leukocytosis improving Patient has COVID-19 pneumonia Hypertension Cardiomyopathy status post AICD Previous CVA with right residual weakness Seizure disorders Plan COVID-19 positive December 23: Patient is clinically deteriorating Respiratory status worsened Blood pressure low Serum creatinine peyman ABG indicative of CO2 retention Discussed with a healthcare financial analyst Patient due transfer to monitored bed for initiation of BiPAP Meanwhile we will give albumin bolus and start half-normal saline IV hydration May require pressors Overall prognosis poor I favor holding the mind altering medications Per orders December 11: In view of worsening renal failure and rise of creatinine to 1.8 will temporarily hold Lasix and lisinopril Discussed with Dr. Francisco Continue rest Previously: Magnesium and potassium as needed Stable from renal standpoint of view Continue per consultants We will continue to monitor electrolytes and chemistries Subjective ROS Limited/Unobtainable: Yes Objective Objective Last 24 Hour Vital Signs Date Time Temp Pulse Resp B/P (MAP) Pulse Ox O2 Delivery O2 Flow Rate FiO2 12/24/19 08:50 91 101/60 12/24/19 08:00 98.2 91 24 101/ 96 12/24/19 04:00 98.2 96 40 110/60 (77) 96 12/24/19 00:00 98.4 54 36 97/59 (72) 96 12/23/19 23:06 96 Non-Rebreather 15.0 100 12/23/19 22:03 66 128/71 12/23/19 21:00 Non-Rebreather 12/23/19 21:00 98.2 66 36 128/71 (90) 94 12/23/19 16:00 98.2 52 19 121/76 (91) 93 12/23/19 12:00 97.9 93 18 112/79 (90) 98 Laboratory Tests 12/24/19 04:49: Arterial Blood pH 7.322L, Arterial Blood Partial Pressure CO2 68.0*H, Arterial Blood Partial Pressure O2 106.9H, Arterial Blood HCO3 34.4H, Arterial Blood Oxygen Saturation 97.1, Arterial Blood Base Excess 6.7H, Devyn Test Positive 12/24/19 06:00: White Blood Count 14.3H, Red Blood Count 3.45L, Hemoglobin 9.6L, Hematocrit 30.3L, Mean Corpuscular Volume 88, Mean Corpuscular Hemoglobin 27.9, Mean Corpuscular Hemoglobin Concent 31.8L, Red Cell Distribution Width 12.4, Platelet Count 176, Mean Platelet Volume 8.0, Neutrophils (%) (Auto) 84.1H, Lymphocytes (%) (Auto) 5.6L, Monocytes (%) (Auto) 8.7, Eosinophils (%) (Auto) 1.0, Basophils (%) (Auto) 0.5, Sodium Level 147H, Potassium Level 4.7, Chloride Level 105, Carbon Dioxide Level 34H, Anion Gap 8, Blood Urea Nitrogen 67H, Creatinine 2.8#H, Estimat Glomerular Filtration Rate 27.3, Glucose Level 300H, Calcium Level 9.6 Height (Feet): 5 Height (Inches): 8.00 Weight (Pounds): 177 General Appearance: mild distress EENT: other - On O2 mask Cardiovascular: tachycardia Respiratory/Chest: decreased breath sounds Abdomen: distended Genitourinary/Rectal: other - Mosqueda in place Objective No change Ed Vega MD December 24, 2019 09:28
[2019-12-24] MEDS ORDERED: Albumin Human 5% 250ml IV ONE (09:30)
--- NOTE | 2019-12-24 09:37 | NUR ---
RD ASSESSMENT & RECOMMENDATIONS SEE CARE ACTIVITY FOR COMPLETE ASSESSMENT DAILY ESTIMATED NEEDS: Needs based on Cardiac, DM, Pulmonary 72kg abw 25-30 kcals/kg 3459-9131 total kcals 1-1.5 g protein/kg 72-108 g total protein 20-25 mL/kg 3558-2113 total fluid mLs NUTRITION DIAGNOSIS: * Inadequate oral intake R/T poor appetite, clincal condition, respiratory status as evidenced by refusing most meals since adm, now on BIPAP. * Altered nutrition related lab values r/t clinical status, DM, dehydration as evidenced by elev BG (300, 224), A1C 7.4, elev BUN/creat (67/2.8), febrile-> now afebrile, critically elevated pCO2 (68.0). CURRENT DIET: CLD PO DIET RECOMMENDATIONS: IF SAFE FOR PO -> ADVANCE DIET to liberalized Regular / texture per [employer] ENTERAL NUTRITION RECOMMENDATIONS: WHEN OFF BIPAP AND IF PART OF POC -> Glucerna 1.5 @ 50ml/hr x 24 hrs to provide 1200ml, 1800kcal, 99g prot, 911ml free water * WHEN OFF BIPAP AND IF PART OF POC, obtain GI access (minimal-no PO intake x 18 days) * Initiate Glucerna 1.5 @ 10ml/hr x 6 hrs, advance 10ml q 4-6 hrs as tolerated to goal rate * HOB over 30 degrees/ water flush of 150ml q 6 hrs ----- PT AT HIGH RISK FOR REFEEDING SYNDROME, START TF LOW AND INCREASE SLOWLY, CHECK LYTES CLOSELY, REPLETE NEEDED ADDITIONAL RECOMMENDATIONS: 1) Check A1C -> pt w/elev BG (300, 224); a1c 7.4 -> Consider NISS 2) Monitor ability to feed: No/minimal intake x 18 days, pt now on BIPAP -> consider PARENTERAL NUTRITION if pt unable to feed due to BIPAP 3) Obtain a calibrated bedscale wt 4) Monitor renal fxn- worsening at this time, consider gentle IVF 5) Monitor lytes, replete as needed
[2019-12-24] MEDS ORDERED: Albumin Human 5% 500ml IV ONE (10:15)
--- NOTE | 2019-12-24 10:44 | NUR ---
NURSE NOTES: NGT INSERTED 55CM, AUSCULTATED AIR PLACEMENT, AWAIT TARIK. PT HAS ATTEMPTS TO REMOVE NGT, LEFT SOFT WRIST RESTRAINT APPLIED MD AWARE Addendum: 12/24/19 at 1144 by RADHA RANDHAWA RN suctioned pt nasotracheal, w moderate output , white-brownish sputum. pt on 90% nrbm
[2019-12-24 10:57] LABS: ALANINE AMINOTRANSFERASE 28 U/L (12-78); ALBUMIN 2.3 G/DL (3.4-5.0); ALKALINE PHOSPHATASE 81 U/L (46-116); ASPARTATE AMINO TRANSFERASE 19 U/L (15-37); BILIRUBIN,DIRECT 0.2 MG/DL (0.0-0.3); BILIRUBIN,TOTAL 0.4 MG/DL (0.2-1.0); PHOSPHORUS 5.9 MG/DL (2.5-4.9)
--- NOTE | 2019-12-24 11:19 | Infectious Diseases Prog Note ---
Assessment/Plan Assessment/Plan Assessment: Septic shock-SP Fever;SP Mild leukocytosis, fluctuating; improving -12/14 u/a wbc 15-20, nit neg, leuk +1 Bcx Neg -u/a neg -Bcx Neg Probable PNA- 2ry to COVID19 (from [place] with confirmed cases) Acute hypoxic respiratory failure- was on NC, now on NRB- increasing FIo2 requiremetns -12/22 CXR: Minimally improved left, unchanged right infiltrates, since prior exam of 3 days earlier -12/19 CXR: Unchanged bilateral infiltrates, likely pneumonia, since prior exam of 3 days earlier. -12/16 CXR: Bilateral interstitial and airspace infiltrates are again demonstrated.Appearance is overall unchanged. There may be a small left pleural effusion,unchange -12/15 CRP 41.6, ferritin 1468 -12/14 CXR: . Worsening bilateral interstitial and airspace opacities. Probable small left pleural effusion. Difficult to evaluate the right costophrenic angle due to overlying pacemaker. -12/11 CXR: Slightly improved bilateral interstitial and airspace infiltrates versus edema -12/09 CXR: Bilateral mid and lower lung interstitial disease, new since prior study.Possible developing left pleural effusion Ferritn >2000, CRP 22.3 -12/05 SARS-COV2 PCR + -CXR: Left basilar atelectasis and/or infiltrate TRAE, improving HTN cadiomyopathy s/p AICD CVA x3 w/ residual R side weakness seizure disorder [place] resident ([facility]) Plan: -Continue to monitor off abx -12/21 SP IV Vancomycin #5 -12/18 SP Zosyn #5 - SPSolumedrol 40mg IV 12hrs x 5days (12/15-12/17); dc'ed by head setter - ( day 10 of illness and worsening; around this time is seen the worsening of COVID19 pts mainly driven by inflammatory response) -12/10 SP Cefepime #6 -12/08 SP IV Vancomycin #4 -f/u cx -Monitor CBC/CMP, temperatures -COVID 19 precautions -clarify goals of care -aspiration precautions -inflammatory markers -f/u cx -monitor CXR -u/a w/ reflex, Bcx x2 Thank you for consulting [facility]. Will continue to follow along with you. Discussed with RN, Subjective Allergies: Coded Allergies: No Known Allergies (Unverified , 07/28/14) Subjective afebrile remains on NRB mild leukocytosis Objective Vital Signs Last 24 Hour Vital Signs Date Time Temp Pulse Resp B/P (MAP) Pulse Ox O2 Delivery O2 Flow Rate FiO2 12/24/19 08:50 91 101/60 12/24/19 08:00 98.2 91 24 101/ 96 12/24/19 04:00 98.2 96 40 110/60 (77) 96 12/24/19 00:00 98.4 54 36 97/59 (72) 96 12/23/19 23:06 96 Non-Rebreather 15.0 100 12/23/19 22:03 66 128/71 12/23/19 21:00 Non-Rebreather 12/23/19 21:00 98.2 66 36 128/71 (90) 94 12/23/19 16:00 98.2 52 19 121/76 (91) 93 12/23/19 12:00 97.9 93 18 112/79 (90) 98 Height (Feet): 5 Height (Inches): 8.00 Weight (Pounds): 177 Objective not examined to limit COVID19 exposure Laboratory Tests Test 12/24/19 04:49 12/24/19 06:00 Arterial Blood pH 7.322 (7.350-7.450) Arterial Blood Partial Pressure CO2 68.0 mmHg (35.0-45.0) *H Arterial Blood Partial Pressure O2 106.9 mmHg (75.0-100.0) H Arterial Blood HCO3 34.4 mmol/L (22.0-26.0) H Arterial Blood Oxygen Saturation 97.1 % (95-100) Arterial Blood Base Excess 6.7 (-2-2) H Devyn Test Positive White Blood Count 14.3 K/UL (4.8-10.8) H Red Blood Count 3.45 M/UL (4.70-6.10) L Hemoglobin 9.6 G/DL (14.2-18.0) L Hematocrit 30.3 % (42.0-52.0) L Mean Corpuscular Volume 88 FL (80-99) Mean Corpuscular Hemoglobin 27.9 PG (27.0-31.0) Mean Corpuscular Hemoglobin Concent 31.8 G/DL (32.0-36.0) L Red Cell Distribution Width 12.4 % (11.6-14.8) Platelet Count 176 K/UL (150-450) Mean Platelet Volume 8.0 FL (6.5-10.1) Neutrophils (%) (Auto) 84.1 % (45.0-75.0) H Lymphocytes (%) (Auto) 5.6 % (20.0-45.0) L Monocytes (%) (Auto) 8.7 % (1.0-10.0) Eosinophils (%) (Auto) 1.0 % (0.0-3.0) Basophils (%) (Auto) 0.5 % (0.0-2.0) Sodium Level 147 MMOL/L (136-145) H Potassium Level 4.7 MMOL/L (3.5-5.1) Chloride Level 105 MMOL/L (98-107) Carbon Dioxide Level 34 MMOL/L (21-32) H Anion Gap 8 mmol/L (5-15) Blood Urea Nitrogen 67 mg/dL (7-18) H Creatinine 2.8 MG/DL (0.55-1.30) #H Estimat Glomerular Filtration Rate 27.3 mL/min (>60) Glucose Level 300 MG/DL (74-106) H Calcium Level 9.6 MG/DL (8.5-10.1) Phosphorus Level 5.9 MG/DL (2.5-4.9) H Magnesium Level 2.9 MG/DL (1.8-2.4) H Total Bilirubin 0.4 MG/DL (0.2-1.0) Direct Bilirubin 0.2 MG/DL (0.0-0.3) Aspartate Amino Transf (AST/SGOT) 19 U/L (15-37) Alanine Aminotransferase (ALT/SGPT) 28 U/L (12-78) Alkaline Phosphatase 81 U/L (46-116) Total Protein 7.7 G/DL (6.4-8.2) Albumin 2.3 G/DL (3.4-5.0) L Current Medications Medications (Trade) Dose Ordered Sig/Wiley Route PRN Reason Start Time Stop Time Status Last Admin Dose Admin Acetaminophen (Tylenol) 650 mg Q6H PRN ORAL Temp >100.5 12/11/19 14:45 01/07/20 08:44 12/14/19 21:01 Acetaminophen (Tylenol) 650 mg Q6H PRN RECTAL Temp >100.5 12/15/19 10:15 01/14/20 10:14 12/15/19 16:59 Carvedilol (Coreg) 3.125 mg EVERY 12 HOURS ORAL 12/11/19 21:00 01/10/20 20:59 12/23/19 22:03 Chlorhexidine Gluconate (Milagro-Hex 2%) 1 applic DAILY@2000 TOPIC 12/11/19 20:00 03/06/20 19:59 12/23/19 22:04 Levetiracetam (Keppra) 1,000 mg Q12HR ORAL 12/11/19 21:00 01/06/20 00:00 12/23/19 22:04 Sodium Chloride 1,000 ml @ 75 mls/hr [id number] IV 12/24/19 09:30 01/23/20 09:29 12/24/19 09:45 Sujatha Sanchez M.D. December 24, 2019 11:19
--- NOTE | 2019-12-24 11:30 | NUR ---
NURSE NOTES: Received patient from BARBARA Tejeda. Patient transferred to ICU for low saturation and respiratory distress. Patient drowsy and unable to follow commands at this time. Blood pressure 92/56, 100 in sinus tachycardia, SpO2 95% on 100% non-rebreather, and RR 33. Patient has right chest AICD. Patient showing sinus tachycardia on the db2 dba. Patient has right side weakness. Patient has left hand soft wrist restraint as patient witnessed trying to remove medical devices. Patient non-verbal at this time. Patient has left nares NGT at 55cm at the nares. Awaiting confirmation with KUB. Patient skin intact at this time. Bilateral heels elevated. Patient has right femoral TLC that is patent, asymptomatic, dressing dry and intact and running 0.45% normal saline at 75mL/hr at this time. Patient bed in low position with bed alarm on and call light in reach at this time. Will continue to monitor. Oral care and repositioning done at this time. Bilateral heels floated.
--- NOTE | 2019-12-24 11:57 | NUR ---
RESPIRATORY NOTE: placed pt on Bipap with facial foam tape in place. skin intact prior to placing on bipap mask. bipap settings are as followed.
--- NOTE | 2019-12-24 12:00 | NUR ---
NURSE NOTES: Patient placed on BiPAP 15/5 with 100% FiO2. Will continue to monitor.
--- NOTE | 2019-12-24 12:05 | NUR ---
CASE MANAGEMENT:REVIEW 12/23/19 SI;COVID-19 PNEUMONIA. UTI. COPD. SEPTIC SHOCK. T 98.2 P 52 RR 36 BP 107/70 93% 15 L NRB FIO2 @ 100% WBC 14.0 H/H 9.2/28.5 NA 146 CO2 34 BUN 39 CR 1.8 BG 224 IS;LASIX PO QD MAG-OX PO TID COREG PO Q12 HR KEPPRA PO Q12 HR K-DUR PO BID ZESTRIL PO QD MED SURG STATUS DCPLFROM [facility] CASE MANAGEMENT:REVIEW (CONCURRENT) 12/24/19 SI;COVID-19 PNEUMONIA. SEPTIC SHOCK. TRAE. AC HYPOXIC RESP FAILURE. T 98.4 P 97 RR 40 BP 101/60 O2 100% ON Bi-PAP WBC 14.3 H/H 9.6/30.3 NA 147 CO2 34 BUN 67 CR 2.8 BG 300 MAG 2.9 ALB 2.3 IS;ALBUMIN HUMAN IV ONCE IVF NS @ 75 ML/HE LASIX PO QD ZESTRIL PO QD K-DUR PO BID MAG-OC PO TID COREG PO Q12 HR KEPPRA PO Q12 HR TRANSFERRED TO ICU @ 0954 ON 12/24/19 ICU STATUS DCP;PATIENT IS FROM [facility]
--- NOTE | 2019-12-24 12:06 | NUR ---
CASE MANAGEMENT: REVIEW SI: SEPSIS . COVID-19 T 98.4 HR 54 RR 36 BP 97/59 SAT 100% BIPAP FIO2 100 WBC 14.3 H/H 9.6/30.3 NA 147 BUN 67 CR 2.8 ABG: PH 7.322 PCO2 98.0 PO2 106.9 HCO3 34.3 BASE 6.7 IS: NS IVF @ 75ML/HR ALBUMIN HUMAN IV X1 COREG PO Q12HR KEPPRA PO Q12HR GABAPENTIN PO Q8HR INSERT NGT ICU STATUS DCP: PATIENT IS FROM [facility]
--- NOTE | 2019-12-24 12:17 | Cardiac Electrophysiology PN ---
Assessment/Plan Assessment/Plan 1. S/P Shock due to EF 40% and sepsis. BNP is 736. On Abx by Dr. Sanchez. Resolved 2. CHF EF 40%. On Coreg 3.125 bid. DC LAisx and Lisinopril for ARF 3. Status post right-sided MERT ICD. 4. Hypertension 5. History of CVA with residual weakness. 6. COVID-19 PNA, now is going on BIPAP 7. Hypernatremia. 8. Acute renal failure.Cr up from 0.9 to 2.8. Off Lasix and Lisinopril KOTA RN and Dr Vega Subjective Subjective In Covid isolation. Creatinine is rising. Is more SOB and is being transferred to ICU to be put on BIPAP. Objective Last 24 Hour Vital Signs Date Time Temp Pulse Resp B/P (MAP) Pulse Ox O2 Delivery O2 Flow Rate FiO2 12/24/19 11:54 97 30 100 Bi-Pap 100 12/24/19 11:51 97 30 100 100 12/24/19 11:50 100 Bi-Pap 100 12/24/19 08:50 91 101/60 12/24/19 08:00 98.2 91 24 101/ 96 12/24/19 04:00 98.2 96 40 110/60 (77) 96 12/24/19 00:00 98.4 54 36 97/59 (72) 96 12/23/19 23:06 96 Non-Rebreather 15.0 100 12/23/19 22:03 66 128/71 12/23/19 21:00 Non-Rebreather 12/23/19 21:00 98.2 66 36 128/71 (90) 94 12/23/19 16:00 98.2 52 19 121/76 (91) 93 Laboratory Tests Test 12/24/19 04:49 12/24/19 06:00 Arterial Blood pH 7.322 (7.350-7.450) Arterial Blood Partial Pressure CO2 68.0 mmHg (35.0-45.0) *H Arterial Blood Partial Pressure O2 106.9 mmHg (75.0-100.0) H Arterial Blood HCO3 34.4 mmol/L (22.0-26.0) H Arterial Blood Oxygen Saturation 97.1 % (95-100) Arterial Blood Base Excess 6.7 (-2-2) H Devyn Test Positive White Blood Count 14.3 K/UL (4.8-10.8) H Red Blood Count 3.45 M/UL (4.70-6.10) L Hemoglobin 9.6 G/DL (14.2-18.0) L Hematocrit 30.3 % (42.0-52.0) L Mean Corpuscular Volume 88 FL (80-99) Mean Corpuscular Hemoglobin 27.9 PG (27.0-31.0) Mean Corpuscular Hemoglobin Concent 31.8 G/DL (32.0-36.0) L Red Cell Distribution Width 12.4 % (11.6-14.8) Platelet Count 176 K/UL (150-450) Mean Platelet Volume 8.0 FL (6.5-10.1) Neutrophils (%) (Auto) 84.1 % (45.0-75.0) H Lymphocytes (%) (Auto) 5.6 % (20.0-45.0) L Monocytes (%) (Auto) 8.7 % (1.0-10.0) Eosinophils (%) (Auto) 1.0 % (0.0-3.0) Basophils (%) (Auto) 0.5 % (0.0-2.0) Sodium Level 147 MMOL/L (136-145) H Potassium Level 4.7 MMOL/L (3.5-5.1) Chloride Level 105 MMOL/L (98-107) Carbon Dioxide Level 34 MMOL/L (21-32) H Anion Gap 8 mmol/L (5-15) Blood Urea Nitrogen 67 mg/dL (7-18) H Creatinine 2.8 MG/DL (0.55-1.30) #H Estimat Glomerular Filtration Rate 27.3 mL/min (>60) Glucose Level 300 MG/DL (74-106) H Calcium Level 9.6 MG/DL (8.5-10.1) Phosphorus Level 5.9 MG/DL (2.5-4.9) H Magnesium Level 2.9 MG/DL (1.8-2.4) H Total Bilirubin 0.4 MG/DL (0.2-1.0) Direct Bilirubin 0.2 MG/DL (0.0-0.3) Aspartate Amino Transf (AST/SGOT) 19 U/L (15-37) Alanine Aminotransferase (ALT/SGPT) 28 U/L (12-78) Alkaline Phosphatase 81 U/L (46-116) Total Protein 7.7 G/DL (6.4-8.2) Albumin 2.3 G/DL (3.4-5.0) L Objective HEAD AND NECK: Mild JVD. LUNGS: Decreased breath sounds and rhonchi CARDIOVASCULAR: Regular S1 and S2 with no gallop. ABDOMEN: Soft. EXTREMITIES: 1+ pitting edema. Defibrillator is in right subclavian. Shai Bullard MD December 24, 2019 12:17
--- NOTE | 2019-12-24 12:23 | Pulmonology Progress Note ---
Subjective ROS Limited/Unobtainable: Yes Interval Events: Doing poorly; now on BiPAP Constitutional: Reports: no symptoms HEENT: Repors: no symptoms Respiratory: Reports: dry cough, shortness of breath Cardiovascular: Reports: no symptoms Gastrointestinal/Abdominal: Reports: no symptoms Genitourinary: Reports: no symptoms Neurologic: Reports: no symptoms Allergies: Coded Allergies: No Known Allergies (Unverified , 07/28/14) All Systems: reviewed and negative except above Objective Last 24 Hour Vital Signs Date Time Temp Pulse Resp B/P (MAP) Pulse Ox O2 Delivery O2 Flow Rate FiO2 12/24/19 11:54 97 30 100 Bi-Pap 100 12/24/19 11:51 97 30 100 100 12/24/19 11:50 100 Bi-Pap 100 12/24/19 08:50 91 101/60 12/24/19 08:00 98.2 91 24 101/ 96 12/24/19 04:00 98.2 96 40 110/60 (77) 96 12/24/19 00:00 98.4 54 36 97/59 (72) 96 12/23/19 23:06 96 Non-Rebreather 15.0 100 12/23/19 22:03 66 128/71 12/23/19 21:00 Non-Rebreather 12/23/19 21:00 98.2 66 36 128/71 (90) 94 12/23/19 16:00 98.2 52 19 121/76 (91) 93 HEENT: atraumatic, anicteric Respiratory/Chest: chest wall non-tender, decreased breath sounds Cardiovascular: normal peripheral pulses Abdomen: soft, non tender, non distended Neurologic/Psychiatric: alert, responsive Laboratory Tests 12/24/19 04:49: Arterial Blood pH 7.322L, Arterial Blood Partial Pressure CO2 68.0*H, Arterial Blood Partial Pressure O2 106.9H, Arterial Blood HCO3 34.4H, Arterial Blood Oxygen Saturation 97.1, Arterial Blood Base Excess 6.7H, Devyn Test Positive 12/24/19 06:00: White Blood Count 14.3H, Red Blood Count 3.45L, Hemoglobin 9.6L, Hematocrit 30.3L, Mean Corpuscular Volume 88, Mean Corpuscular Hemoglobin 27.9, Mean Corpuscular Hemoglobin Concent 31.8L, Red Cell Distribution Width 12.4, Platelet Count 176, Mean Platelet Volume 8.0, Neutrophils (%) (Auto) 84.1H, Lymphocytes (%) (Auto) 5.6L, Monocytes (%) (Auto) 8.7, Eosinophils (%) (Auto) 1.0, Basophils (%) (Auto) 0.5, Sodium Level 147H, Potassium Level 4.7, Chloride Level 105, Carbon Dioxide Level 34H, Anion Gap 8, Blood Urea Nitrogen 67H, Creatinine 2.8#H, Estimat Glomerular Filtration Rate 27.3, Glucose Level 300H, Calcium Level 9.6, Phosphorus Level 5.9H, Magnesium Level 2.9H, Total Bilirubin 0.4, Direct Bilirubin 0.2, Aspartate Amino Transf (AST/SGOT) 19, Alanine Aminotransferase (ALT/SGPT) 28, Alkaline Phosphatase 81, Total Protein 7.7, Albumin 2.3L Current Medications Medications (Trade) Dose Ordered Sig/Wiley Route PRN Reason Start Time Stop Time Status Last Admin Dose Admin Acetaminophen (Tylenol) 650 mg Q6H PRN ORAL Temp >100.5 12/11/19 14:45 01/07/20 08:44 12/14/19 21:01 Acetaminophen (Tylenol) 650 mg Q6H PRN RECTAL Temp >100.5 12/15/19 10:15 01/14/20 10:14 12/15/19 16:59 Albumin Human 250 ml @ 0 mls/hr Q0M ONCE IV 12/24/19 13:00 12/24/19 13:01 Carvedilol (Coreg) 3.125 mg EVERY 12 HOURS ORAL 12/11/19 21:00 01/10/20 20:59 12/23/19 22:03 Chlorhexidine Gluconate (Milagro-Hex 2%) 1 applic DAILY@2000 TOPIC 12/11/19 20:00 03/06/20 19:59 12/23/19 22:04 Levetiracetam (Keppra) 1,000 mg Q12HR ORAL 12/11/19 21:00 01/06/20 00:00 12/23/19 22:04 Sodium Chloride 1,000 ml @ 75 mls/hr [id number] IV 12/24/19 09:30 01/23/20 09:29 12/24/19 09:45 Assessment/Plan Assessment/Plan IMPRESSION: 1. Cardiomyopathy. 2. Hypotension. 3. Left lung pneumonia. 4. jail resident. 5. Positive COVID-19. DISCUSSION: 1. Continue isolation 2. Continue current medications. 3. Off pressors. 4. ContinueBiPAP 5. Pulmonary hygiene. 6. Broad-spectrum antibiotics. 7. I will follow. 8. Pulmonary hygiene 9. Continue diuresis, on Lasix 40 mg IV BID; CXR unchanged Mike Montalvo M.D. Mike Montalvo MD December 24, 2019 12:23
[2019-12-24] MEDS ORDERED: Acetaminophen 650 MG SUPP RECTAL PRN (13:15)
--- NOTE | 2019-12-24 13:27 | General Progress Note ---
Assessment/Plan Problem List: (1) Suspected COVID-19 virus infection ICD Codes: Z20.828 - Contact with and (suspected) exposure to other viral communicable diseases SNOMED: 586636338 (2) Anemia ICD Codes: D64.9 - Anemia, unspecified SNOMED: 323988673 (3) Weak ICD Codes: R53.1 - Weakness SNOMED: 95164089 (4) COPD (chronic obstructive pulmonary disease) ICD Codes: J44.9 - Chronic obstructive pulmonary disease, unspecified SNOMED: 42257736 (5) Diabetes ICD Codes: E11.9 - Type 2 diabetes mellitus without complications SNOMED: 29157015 (6) Epileptic seizure, generalized ICD Codes: G40.309 - Generalized idiopathic epilepsy and epileptic syndromes, not intractable, without status epilepticus SNOMED: 29088553 (7) Altered mental status ICD Codes: R41.82 - Altered mental status, unspecified SNOMED: 204084883 Qualifiers: Qualified Codes: R41.82 - Altered mental status, unspecified (8) Hypotension ICD Codes: I95.9 - Hypotension, unspecified SNOMED: 81685058 Qualifiers: Qualified Codes: I95.9 - Hypotension, unspecified (9) UTI (urinary tract infection) ICD Codes: N39.0 - Urinary tract infection, site not specified SNOMED: 59426224 Status: unchanged Assessment/Plan: o2 pulm tx abx pt diet cbc bmp am Subjective Allergies: Coded Allergies: No Known Allergies (Unverified , 07/28/14) All Systems: reviewed and negative except above Subjective bipap sleepy in icu Objective Last 24 Hour Vital Signs Date Time Temp Pulse Resp B/P (MAP) Pulse Ox O2 Delivery O2 Flow Rate FiO2 12/24/19 11:54 97 30 100 Bi-Pap 100 12/24/19 11:51 97 30 100 100 12/24/19 11:50 100 Bi-Pap 100 12/24/19 09:00 Non-Rebreather 12/24/19 08:50 91 101/60 12/24/19 08:00 98.2 91 24 101/ 96 12/24/19 04:00 98.2 96 40 110/60 (77) 96 12/24/19 00:00 98.4 54 36 97/59 (72) 96 12/23/19 23:06 96 Non-Rebreather 15.0 100 12/23/19 22:03 66 128/71 12/23/19 21:00 Non-Rebreather 12/23/19 21:00 98.2 66 36 128/71 (90) 94 12/23/19 16:00 98.2 52 19 121/76 (91) 93 Laboratory Tests 12/24/19 04:49: Arterial Blood pH 7.322L, Arterial Blood Partial Pressure CO2 68.0*H, Arterial Blood Partial Pressure O2 106.9H, Arterial Blood HCO3 34.4H, Arterial Blood Oxygen Saturation 97.1, Arterial Blood Base Excess 6.7H, Devyn Test Positive 12/24/19 06:00: White Blood Count 14.3H, Red Blood Count 3.45L, Hemoglobin 9.6L, Hematocrit 30.3L, Mean Corpuscular Volume 88, Mean Corpuscular Hemoglobin 27.9, Mean Corpuscular Hemoglobin Concent 31.8L, Red Cell Distribution Width 12.4, Platelet Count 176, Mean Platelet Volume 8.0, Neutrophils (%) (Auto) 84.1H, Lymphocytes (%) (Auto) 5.6L, Monocytes (%) (Auto) 8.7, Eosinophils (%) (Auto) 1.0, Basophils (%) (Auto) 0.5, Sodium Level 147H, Potassium Level 4.7, Chloride Level 105, Carbon Dioxide Level 34H, Anion Gap 8, Blood Urea Nitrogen 67H, Creatinine 2.8#H, Estimat Glomerular Filtration Rate 27.3, Glucose Level 300H, Calcium Level 9.6, Phosphorus Level 5.9H, Magnesium Level 2.9H, Total Bilirubin 0.4, Direct Bilirubin 0.2, Aspartate Amino Transf (AST/SGOT) 19, Alanine Aminotransferase (ALT/SGPT) 28, Alkaline Phosphatase 81, Total Protein 7.7, Albumin 2.3L 12/24/19 13:10: Arterial Blood pH 7.298L, Arterial Blood Partial Pressure CO2 64.7*H, Arterial Blood Partial Pressure O2 124.8H, Arterial Blood HCO3 31.0H, Arterial Blood Oxygen Saturation 97.1, Arterial Blood Base Excess 3.4H, Devyn Test Positive Height (Feet): 5 Height (Inches): 8.00 Weight (Pounds): 177 General Appearance: lethargic EENT: normal ENT inspection Neck: normal alignment Cardiovascular: normal rate, regular rhythm Respiratory/Chest: no respiratory distress, no accessory muscle use Extremities: normal inspection Skin: normal pigmentation Tee Novoa DO December 24, 2019 13:27
--- NOTE | 2019-12-24 13:30 | NUR ---
NURSE NOTES: Notified Dr Novoa via telephone call that patient had serum glucose of 300 this morning, patient is diabetic, and patient is NPO due to BiPAP. Received order for NovoLOG moderate sliding scale and bedside blood glucose check Q6Hr. Order read back, verified, and placed.
--- NOTE | 2019-12-24 16:00 | NUR ---
PATIENT CLEANED AND REPOSITIONED. PERINEAL CARE DONE. NGT PLACED IN LEFT NARE; 70CM. AWAITING KUB FOR PLACEMENT CONFIRMATION. Addendum: 12/24/19 at 1633 by Katiana Vasquez RN RN NURSES NOTES: PATIENT CLEANED AND REPOSITIONED. PERINEAL CARE DONE. NGT PLACED IN LEFT NARE; 70CM. AWAITING KUB FOR PLACEMENT CONFIRMATION. Addendum: 12/24/19 at 1635 by Katiana Vasquez RN RN NURSES NOTES: PATIENT CLEANED AND REPOSITIONED TO RIGHT LYING POSITION. PERINEAL CARE DONE. NGT PLACED IN LEFT NARE; 70CM. AWAITING KUB FOR PLACEMENT CONFIRMATION.
--- NOTE | 2019-12-24 16:00 | NUR ---
NURSE NOTES: Patient drowsy but easily aroused to name and touch. Patient on BiPAP 15/5 with 100% FiO2. Patient showing sinus tachycardia on the youth nutritional monitor. Left hand remains in soft wrist restraint with pulses present and no skin breakdown noted. NGT tube inserted. Patient yelled "no" when NGT inserted in left nares but does not speak otherwise. Awaiting confirmation with KUB. Patient skin intact remains intact with dry/flaking skin noted on perineal/sacral area. Bilateral heels elevated. Right femoral TLC remains patent, asymptomatic, dressing dry and intact and running 0.45% normal saline at 75mL/hr at this time. Patient bed in low position with bed alarm on and call light in reach at this time. Will continue to monitor. Oral care and repositioning done at this time.
--- NOTE | 2019-12-24 16:25 | NUR ---
TARIK COMPLETED, NGT PLACEMENT CONFIRMED Addendum: 12/24/19 at 1635 by Katiana Vasquez RN RN NURSES NOTES: TARIK COMPLETED, NGT PLACEMENT CONFIRMED.
--- NOTE | 2019-12-24 16:45 | Progress Note ---
DATE: 12/23/2019 SUBJECTIVE: A 69-year-old male with altered mental status. He is still very confused, disorganized, with some respiratory insufficiency 00:07 decline in cognition below his baseline. MENTAL STATUS EXAMINATION: A 69-year-old male. Appearance is disheveled. Attitude, irritable and agitated. Affect, guarded and restricted. Intellect poor. Mood, depressed and anxious. Motor activity, psychomotor agitation. Insight and judgment is poor. DIAGNOSIS: Major depressive disorder, mild, recurrent with psychotic features, rule out dementia with psychosis. PLAN: I am going to continue titrating up on his medications to stabilize his mood. A 20 minutes of insight-oriented psychotherapy 00:53 patient to help him better understanding of his psychiatric condition, so that he will have better impulse control, behavior, and orientation on the unit. Chart reviewed. Discussed with staff. Seen and assessed at the bedside. A 20 minutes of insight-oriented psychotherapy provided. Mirna Adkins M.D. DR: MACK JOB#: [id number] CC:
[2019-12-24] MEDS: NovoLOG Insulin Flexpen SUBQ SCH ×2 (17:05→23:18)
--- NOTE | 2019-12-24 17:30 | Progress Note ---
DATE: 12/24/2019 SUBJECTIVE: This is a 69-year-old male patient. He has altered mental status. He has , sepsis, decline in cognition below his baseline that is why the attending has requested daily psychiatric consultation. MENTAL STATUS EXAMINATION: A 69-year-old male. Appearance is disheveled. Attitude, irritable and agitated. Affect is labile. Intellect, poor because he does not know current events, does not know last four presidents. Mood, depressed and anxious. Motor activity, psychomotor agitation. Attention span is poor because he cannot do serial 7s, spell world backwards. Orientation x2. He is oriented to person and place, not time or situation. Speech is pressured and nonsensical. Thought process, disorganized and illogical. Thought content, auditory hallucinations and paranoid delusions. Perception is poor because he has perceptual disturbance such as auditory hallucinations and paranoid delusions. Abstract reasoning is poor because he does not understand proverbs, only has concrete thinking. Insight and judgement is poor. DIAGNOSIS: Major depressive disorder, severe, recurrent with psychotic features, rule out dementia with psychosis. PLAN: Continue treatment with psychotropic medications to stabilize his mood, reduce depression, anxiety, and clear him from disorganized thought process. Provided him with 20 minutes of insight-oriented psychotherapy to help him have better understanding of his psychiatric and physical condition so that he have better control over his symptoms. Chart reviewed and discussed with nursing staff. Mirna Adkins M.D. DR: Blake JOB#: [id number] CC:
--- NOTE | 2019-12-24 18:30 | NUR ---
NURSE NOTES: Notified Dr Bullard that the patient blood pressure trending low. Asked for PRN medication for blood pressure. Received order for Levophed drip PRN for hypotension. Order read back, verified, and placed.
--- NOTE | 2019-12-24 18:53 | NUR ---
NURSE NOTES: Followed up with radiology regarding KUB result for NGT placement. Received notification that the NGT is safe to use.
[2019-12-24] MEDS ORDERED: Dyna-Hex 2% Top Sol 2oz TOPIC SCH (20:00)
--- NOTE | 2019-12-24 20:05 | NUR ---
NURSE NOTES: received report from [facility]a nixon pt covid + pt b-pap 26/12 with o2 sat 100% iv infusing rt femoral site good dressing dry and intact montero at bedside drainage with good urinary output
--- NOTE | 2019-12-24 21:00 | NUR ---
HAND-OFF: Report given to rashaun rn using sbar.
--- NOTE | 2019-12-24 21:30 | NUR ---
NURSE NOTES: Report received from BARBARA Putnam. Observed pt lying in the bed, lethargic, SR on cardiac rehab nurse. On Bipap 15/5, 100%, sat at 100%. Pt has NGT, on R N, NPO status for now. F/C intact and draining yellow urine. R Femoral TLC, asymptomatic , running 1/2 NS at 75cc/hr. L wrist restraint noted, no distress noted. Bed in the lowest position. Side rails padded and up x3. Call light within reach. Will continue to monitor.
--- NOTE | 2019-12-24 22:15 | NUR ---
NURSE NOTES: Noted pt BP of 89/53 and started levophed drip. No other distress noted at this time. Will continue to monitor.
[2019-12-25] VITALS (61 sets, daily range): BP systolic 89–133; BP diastolic 49–85
--- NOTE | 2019-12-25 00:24 | NUR ---
NURSE NOTES: Note BP of 87/55, titrate Levophed to 4mcg/min. No acute change noted. Will continue to monitor.
--- NOTE | 2019-12-25 02:00 | NUR ---
NURSE NOTES: No acute distress noted at this time. Pt tolerating well with current bipap setting, /, 100%. Will continue to monitor.
--- NOTE | 2019-12-25 03:55 | NUR ---
NURSE NOTES: pt sleeping in the bed, arousable by shaking. Bed bath given. Reposition done. No acute change noted at this time. Levophed at 4mcg/min, BP of 104/58 noted. L wrist asymptomatic. Will continue to monitor.
[2019-12-25 05:20] LABS: HEMATOCRIT 20.2 % (42.0-52.0); MEAN CORPUSCULAR VOLUME 89 FL (80-99); PLATELET COUNT 99 K/UL (150-450); RED BLOOD COUNT 2.27 M/UL (4.70-6.10); WHITE BLOOD COUNT 9.5 K/UL (4.8-10.8)
[2019-12-25 05:36] LABS: HEMOGLOBIN 6.4 G/DL (14.2-18.0)
[2019-12-25] MEDS: NovoLOG Insulin Flexpen SUBQ SCH ×4 (05:58→23:42)
--- NOTE | 2019-12-25 06:30 | NUR ---
NURSE NOTES: Noted abnormal lab results that was drawn from central line. Repeat CBC order and notified lab and was told to be drawn at later time. Addendum: 12/25/19 at 0707 by Aisha Castro RN No acute changes. No signs of bleeding noted.
--- NOTE | 2019-12-25 07:05 | NUR ---
HAND-OFF: Report given to BARBARA Hernandes.
--- NOTE | 2019-12-25 07:10 | NUR ---
NURSE NOTES: Received report from BARBARA Barksdale. Patient asleep and on BIPAP 15/5 with FiO2 100%. O2 Sat 100% on the monitor. NPO status. Mosqueda intact and draining with yellow color urine. Right femoral TLC intact and running with 1/2 NS @ 75ml/hr and levophed 4mcg/min. Left soft wrist band restraint on. Left hand is warm to touch. kept dry, clean, comfortable and HOB>30. Will continue plan of care.
[2019-12-25 07:36] LABS: ANION GAP 10 mmol/L (5-15); BLOOD UREA NITROGEN 59 mg/dL (7-18); CALCIUM 6.2 MG/DL (8.5-10.1); CARBON DIOXIDE 25 MMOL/L (21-32); CHLORIDE 108 MMOL/L (98-107); CREATININE 1.9 MG/DL (0.55-1.30); FERRITIN 1007 NG/ML (8-388); POTASSIUM 3.2 MMOL/L (3.5-5.1); SODIUM 143 MMOL/L (136-145)
[2019-12-25 08:41] LABS: HEMATOCRIT 31.2 % (42.0-52.0); HEMOGLOBIN 9.8 G/DL (14.2-18.0); MEAN CORPUSCULAR VOLUME 88 FL (80-99); PLATELET COUNT 178 K/UL (150-450); RED BLOOD COUNT 3.55 M/UL (4.70-6.10); RED CELL DISTRIBUTION WIDTH 12.5 % (11.6-14.8); WHITE BLOOD COUNT 13.8 K/UL (4.8-10.8)
[2019-12-25 09:01] LABS: ALANINE AMINOTRANSFERASE 24 U/L (12-78); ALBUMIN 2.5 G/DL (3.4-5.0); ALKALINE PHOSPHATASE 90 U/L (46-116); ASPARTATE AMINO TRANSFERASE 20 U/L (15-37); BILIRUBIN,DIRECT 0.3 MG/DL (0.0-0.3); BILIRUBIN,TOTAL 0.6 MG/DL (0.2-1.0); PHOSPHORUS 4.7 MG/DL (2.5-4.9)
--- NOTE | 2019-12-25 09:14 | NUR ---
NURSE NOTES: Seen by Dr. Novoa and ordered PICC placement, He will document for necessity of PICC. Will follow up.
[2019-12-25] MEDS ORDERED: Heparin1,000 units/500ml Premix(Conc:2 units/ml) IV SCH (09:15)
[2019-12-25] MEDS ORDERED: Lidocaine 1% Plain 30 ml INJ SCH (09:15)
--- NOTE | 2019-12-25 09:24 | General Progress Note ---
Assessment/Plan Problem List: (1) Suspected COVID-19 virus infection ICD Codes: Z20.828 - Contact with and (suspected) exposure to other viral communicable diseases SNOMED: 715048101 (2) Anemia ICD Codes: D64.9 - Anemia, unspecified SNOMED: 103842326 (3) Weak ICD Codes: R53.1 - Weakness SNOMED: 18216795 (4) COPD (chronic obstructive pulmonary disease) ICD Codes: J44.9 - Chronic obstructive pulmonary disease, unspecified SNOMED: 92427507 (5) Diabetes ICD Codes: E11.9 - Type 2 diabetes mellitus without complications SNOMED: 28414203 (6) Epileptic seizure, generalized ICD Codes: G40.309 - Generalized idiopathic epilepsy and epileptic syndromes, not intractable, without status epilepticus SNOMED: 70750732 (7) Altered mental status ICD Codes: R41.82 - Altered mental status, unspecified SNOMED: 441704286 Qualifiers: Qualified Codes: R41.82 - Altered mental status, unspecified (8) Hypotension ICD Codes: I95.9 - Hypotension, unspecified SNOMED: 67267375 Qualifiers: Qualified Codes: I95.9 - Hypotension, unspecified (9) UTI (urinary tract infection) ICD Codes: N39.0 - Urinary tract infection, site not specified SNOMED: 59938143 Status: unchanged Assessment/Plan: o2 pulm tx abx pt diet cbc bmp am needs picc, ltach eval Subjective Constitutional: Reports: weakness Allergies: Coded Allergies: No Known Allergies (Unverified , 07/28/14) All Systems: reviewed and negative except above Subjective bipap sleepy in icu Objective Last 24 Hour Vital Signs Date Time Temp Pulse Resp B/P (MAP) Pulse Ox O2 Delivery O2 Flow Rate FiO2 12/25/19 09:00 78 103/58 12/25/19 08:23 99 Bi-Pap 12/25/19 07:38 78 25 100 100 12/25/19 07:00 82 22 103/58 (73) 100 12/25/19 06:34 86 25 107/59 (75) 100 12/25/19 06:14 107/58 12/25/19 06:00 87 24 105/59 (74) 100 12/25/19 05:30 82 26 101/53 (69) 98 5/13/20 05:14 99/49 12/25/19 05:00 81 21 99/49 (66) 96 12/25/19 04:30 82 23 96/53 (67) 97 12/25/19 04:14 100/55 12/25/19 04:00 100 12/25/19 04:00 98.2 83 23 100/55 (70) 100 12/25/19 04:00 Bi-pap 12/25/19 04:00 76 12/25/19 03:48 84 27 99 100 12/25/19 03:30 88 28 97/55 (69) 98 12/25/19 03:14 96/61 12/25/19 03:00 88 24 96/61 (73) 100 12/25/19 02:30 88 23 99/61 (74) 100 12/25/19 02:15 85 24 95/59 (71) 100 12/25/19 02:14 95/59 12/25/19 02:00 88 21 100/62 (75) 100 12/25/19 01:45 86 26 91/56 (68) 100 12/25/19 01:30 87 23 101/57 (72) 100 12/25/19 01:15 90 23 106/67 (80) 100 12/25/19 01:14 101/57 12/25/19 01:00 87 22 101/61 (74) 100 12/25/19 00:45 86 21 97/61 (73) 100 12/25/19 00:30 92 22 107/63 (78) 100 12/25/19 00:15 87 25 89/54 (66) 100 12/25/19 00:14 87/55 12/25/19 00:00 100 12/25/19 00:00 Bi-pap 12/25/19 00:00 92 12/25/19 00:00 98.7 87 25 91/55 (67) 100 12/24/19 23:45 87 23 92/57 (69) 100 12/24/19 23:36 93 25 99 100 12/24/19 23:30 90 24 98/60 (73) 100 12/24/19 23:15 92 24 97/60 (72) 100 12/24/19 23:14 89/53 12/24/19 23:00 89 24 89/53 (65) 100 12/24/19 22:30 95 23 93/56 (68) 100 12/24/19 22:00 91 22 99/55 (70) 100 12/24/19 21:30 91 21 97/62 (74) 100 12/24/19 21:00 91 20 100/63 (75) 100 12/24/19 20:59 91 86/50 12/24/19 20:30 87 23 86/51 (63) 100 12/24/19 20:18 90 22 89/53 (65) 100 12/24/19 20:00 Bi-pap 12/24/19 20:00 98.5 88 21 95/57 (70) 12/24/19 20:00 91 12/24/19 19:45 89 18 100/61 (74) 12/24/19 19:34 93 20 99 100 12/24/19 19:34 99 Bi-Pap 100 12/24/19 19:30 89 21 99/61 (74) 97 12/24/19 19:00 100 12/24/19 19:00 93 22 97/60 (72) 100 12/24/19 18:00 90 23 90/61 (71) 100 12/24/19 17:30 94 23 99/61 (74) 100 12/24/19 17:00 92 22 90/58 (69) 100 12/24/19 16:00 Bi-pap 12/24/19 16:00 98.6 88 24 92/62 (72) 100 12/24/19 15:15 98 27 118/72 (87) 100 12/24/19 15:12 94 27 100 100 12/24/19 15:00 94 25 91/58 (69) 100 12/24/19 14:45 93 24 103/51 (68) 100 12/24/19 14:30 96 29 95/59 (71) 100 12/24/19 14:00 96 29 94/64 (74) 100 12/24/19 13:30 97 30 103/54 (70) 100 12/24/19 13:00 103 30 104/63 (77) 100 12/24/19 12:00 99 30 95/50 (65) 95 12/24/19 12:00 Bi-pap 12/24/19 11:54 97 30 100 Bi-Pap 100 12/24/19 11:51 97 30 100 100 12/24/19 11:50 100 Bi-Pap 100 12/24/19 11:30 99.1 91 24 104/50 (68) 96 Intake and Output 12/24/19 12/25/19 19:00 07:00 Intake Total 868.75 ml 922.5 ml Output Total 200 ml Balance 668.75 ml 922.5 ml IV Total 868.75 ml 922.5 ml Output Urine Total 200 ml # Voids 595 Laboratory Tests 12/24/19 13:10: Arterial Blood pH 7.298L, Arterial Blood Partial Pressure CO2 64.7*H, Arterial Blood Partial Pressure O2 124.8H, Arterial Blood HCO3 31.0H, Arterial Blood Oxygen Saturation 97.1, Arterial Blood Base Excess 3.4H, Devyn Test Positive 12/25/19 04:00: White Blood Count 9.5, Red Blood Count 2.27L, Hemoglobin 6.4#*L, Hematocrit 20.2 #L, Mean Corpuscular Volume 89, Mean Corpuscular Hemoglobin 28.3, Mean Corpuscular Hemoglobin Concent 31.8L, Red Cell Distribution Width 13.0, Platelet Count 99L, Mean Platelet Volume 7.5, Neutrophils (%) (Auto) , Lymphocytes (%) (Auto) , Monocytes (%) (Auto) , Eosinophils (%) (Auto) , Basophils (%) (Auto) , Neutrophils % (Manual) [Pending], Lymphocytes % (Manual) [Pending], Platelet Estimate [Pending], Platelet Morphology [Pending], Sodium Level 143, Potassium Level 3.2L, Chloride Level 108H, Carbon Dioxide Level 25, Anion Gap 10, Blood Urea Nitrogen 59H, Creatinine 1.9H, Estimat Glomerular Filtration Rate 42.5, Glucose Level 347H, Calcium Level 6.2#L, Ferritin 1007H, Lactate Dehydrogenase 390H, C-Reactive Protein, Quantitative 21.6H 12/25/19 08:30: White Blood Count 13.8H, Red Blood Count 3.55L, Hemoglobin 9.8#L, Hematocrit 31.2#L, Mean Corpuscular Volume 88, Mean Corpuscular Hemoglobin 27.5, Mean Corpuscular Hemoglobin Concent 31.3L, Red Cell Distribution Width 12.5, Platelet Count 178#, Mean Platelet Volume 7.3, Neutrophils (%) (Auto) , Lymphocytes (%) (Auto) , Monocytes (%) (Auto) , Eosinophils (%) (Auto) , Basophils (%) (Auto) , Neutrophils % (Manual) 83H, Lymphocytes % (Manual) 10L, Platelet Estimate Adequate, Platelet Morphology Normal, Differential Total Cells Counted 100, Monocytes % (Manual) 6, Eosinophils % (Manual) 1, Basophils % (Manual) 0, Band Neutrophils 0, Hypochromasia 2+, Anisocytosis 1+, Fibrinogen 249, D-Dimer > 35.20H, Phosphorus Level 4.7, Magnesium Level 3.0H, Total Bilirubin 0.6, Direct Bilirubin 0.3, Aspartate Amino Transf (AST/SGOT) 20, Alanine Aminotransferase (ALT/SGPT) 24, Alkaline Phosphatase 90, Total Protein 7.2, Albumin 2.5L Height (Feet): 5 Height (Inches): 8.00 Weight (Pounds): 173 General Appearance: lethargic EENT: normal ENT inspection Neck: normal alignment Cardiovascular: normal rate, regular rhythm Respiratory/Chest: no respiratory distress, no accessory muscle use Extremities: normal inspection Skin: normal pigmentation eTe Novoagab CLARK December 25, 2019 09:24
--- NOTE | 2019-12-25 09:25 | NUR ---
CASE MANAGEMENT: REVIEW SI: SEPSIS . COVID-19 T 98.2 HR 87 RR 25 BP 87/55 SAT 100% BIPAP FIO2 100 WBC 13.8 H/H 9.8/31.2 K 3.2 BUN 59 CR 1.9 IS: KCl IVF @ 100ML/HR NS IVF @ 75ML/HR HEPARIN SODIUM 1,000 UNITS IV X1 COREG PO Q12HR KEPPRA PO Q12HR INSERT NGT ICU STATUS DCP: PATIENT IS FROM [facility]
--- NOTE | 2019-12-25 10:11 | NUR ---
NURSE NOTES: Seen by Dr. Montalvo and ordered ABG.
--- NOTE | 2019-12-25 10:51 | NUR ---
NURSE NOTES: Informed Dr. Montalvo of patient's ABG result. No new order at this time. Will continue plan of care.
--- NOTE | 2019-12-25 11:02 | Pulmonology Progress Note ---
Subjective ROS Limited/Unobtainable: Yes Interval Events: Doing poorly; now on BiPAP Constitutional: Reports: no symptoms HEENT: Repors: no symptoms Respiratory: Reports: dry cough, shortness of breath Cardiovascular: Reports: no symptoms Gastrointestinal/Abdominal: Reports: no symptoms Genitourinary: Reports: no symptoms Neurologic: Reports: no symptoms Allergies: Coded Allergies: No Known Allergies (Unverified , 07/28/14) All Systems: reviewed and negative except above Objective Last 24 Hour Vital Signs Date Time Temp Pulse Resp B/P (MAP) Pulse Ox O2 Delivery O2 Flow Rate FiO2 12/25/19 09:30 80 22 111/63 (79) 100 12/25/19 09:00 79 23 110/67 (81) 100 12/25/19 09:00 78 103/58 12/25/19 08:30 79 24 106/57 (73) 100 12/25/19 08:23 99 Bi-Pap 12/25/19 08:00 100 12/25/19 08:00 Bi-pap 12/25/19 08:00 97.8 87 26 107/61 (76) 100 12/25/19 07:38 78 25 100 100 12/25/19 07:30 81 22 105/60 (75) 100 12/25/19 07:00 82 22 103/58 (73) 100 12/25/19 06:34 86 25 107/59 (75) 100 12/25/19 06:14 107/58 12/25/19 06:00 87 24 105/59 (74) 100 12/25/19 05:30 82 26 101/53 (69) 98 12/25/19 05:14 99/49 12/25/19 05:00 81 21 99/49 (66) 96 12/25/19 04:30 82 23 96/53 (67) 97 12/25/19 04:14 100/55 12/25/19 04:00 100 12/25/19 04:00 98.2 83 23 100/55 (70) 100 12/25/19 04:00 Bi-pap 12/25/19 04:00 76 12/25/19 03:48 84 27 99 100 12/25/19 03:30 88 28 97/55 (69) 98 12/25/19 03:14 96/61 12/25/19 03:00 88 24 96/61 (73) 100 12/25/19 02:30 88 23 99/61 (74) 100 12/25/19 02:15 85 24 95/59 (71) 100 12/25/19 02:14 95/59 12/25/19 02:00 88 21 100/62 (75) 100 12/25/19 01:45 86 26 91/56 (68) 100 12/25/19 01:30 87 23 101/57 (72) 100 12/25/19 01:15 90 23 106/67 (80) 100 12/25/19 01:14 101/57 12/25/19 01:00 87 22 101/61 (74) 100 12/25/19 00:45 86 21 97/61 (73) 100 12/25/19 00:30 92 22 107/63 (78) 100 12/25/19 00:15 87 25 89/54 (66) 100 12/25/19 00:14 87/55 12/25/19 00:00 100 12/25/19 00:00 Bi-pap 12/25/19 00:00 92 12/25/19 00:00 98.7 87 25 91/55 (67) 100 12/24/19 23:45 87 23 92/57 (69) 100 12/24/19 23:36 93 25 99 100 12/24/19 23:30 90 24 98/60 (73) 100 12/24/19 23:15 92 24 97/60 (72) 100 12/24/19 23:14 89/53 12/24/19 23:00 89 24 89/53 (65) 100 12/24/19 22:30 95 23 93/56 (68) 100 12/24/19 22:00 91 22 99/55 (70) 100 12/24/19 21:30 91 21 97/62 (74) 100 12/24/19 21:00 91 20 100/63 (75) 100 12/24/19 20:59 91 86/50 12/24/19 20:30 87 23 86/51 (63) 100 12/24/19 20:18 90 22 89/53 (65) 100 12/24/19 20:00 Bi-pap 12/24/19 20:00 98.5 88 21 95/57 (70) 12/24/19 20:00 91 5/12/20 19:45 89 18 100/61 (74) 12/24/19 19:34 93 20 99 100 12/24/19 19:34 99 Bi-Pap 100 12/24/19 19:30 89 21 99/61 (74) 97 12/24/19 19:00 100 12/24/19 19:00 93 22 97/60 (72) 100 12/24/19 18:00 90 23 90/61 (71) 100 12/24/19 17:30 94 23 99/61 (74) 100 12/24/19 17:00 92 22 90/58 (69) 100 12/24/19 16:00 Bi-pap 12/24/19 16:00 98.6 88 24 92/62 (72) 100 12/24/19 15:15 98 27 118/72 (87) 100 12/24/19 15:12 94 27 100 100 12/24/19 15:00 94 25 91/58 (69) 100 12/24/19 14:45 93 24 103/51 (68) 100 12/24/19 14:30 96 29 95/59 (71) 100 12/24/19 14:00 96 29 94/64 (74) 100 12/24/19 13:30 97 30 103/54 (70) 100 12/24/19 13:00 103 30 104/63 (77) 100 12/24/19 12:00 99 30 95/50 (65) 95 12/24/19 12:00 Bi-pap 12/24/19 11:54 97 30 100 Bi-Pap 100 12/24/19 11:51 97 30 100 100 12/24/19 11:50 100 Bi-Pap 100 12/24/19 11:30 99.1 91 24 104/50 (68) 96 Intake and Output 12/24/19 12/25/19 19:00 07:00 Intake Total 868.75 ml 922.5 ml Output Total 200 ml Balance 668.75 ml 922.5 ml IV Total 868.75 ml 922.5 ml Output Urine Total 200 ml # Voids 595 HEENT: atraumatic, anicteric Respiratory/Chest: chest wall non-tender, decreased breath sounds Cardiovascular: normal peripheral pulses Abdomen: soft, non tender, non distended Neurologic/Psychiatric: alert, responsive Laboratory Tests 12/24/19 13:10: Arterial Blood pH 7.298L, Arterial Blood Partial Pressure CO2 64.7*H, Arterial Blood Partial Pressure O2 124.8H, Arterial Blood HCO3 31.0H, Arterial Blood Oxygen Saturation 97.1, Arterial Blood Base Excess 3.4H, Devyn Test Positive 12/25/19 04:00: White Blood Count 9.5, Red Blood Count 2.27L, Hemoglobin 6.4#*L, Hematocrit 20.2 #L, Mean Corpuscular Volume 89, Mean Corpuscular Hemoglobin 28.3, Mean Corpuscular Hemoglobin Concent 31.8L, Red Cell Distribution Width 13.0, Platelet Count 99L, Mean Platelet Volume 7.5, Neutrophils (%) (Auto) , Lymphocytes (%) (Auto) , Monocytes (%) (Auto) , Eosinophils (%) (Auto) , Basophils (%) (Auto) , Differential Total Cells Counted 100, Neutrophils % ( Manual) 91H, Lymphocytes % (Manual) 2L, Monocytes % (Manual) 2, Eosinophils % ( Manual) 3, Basophils % (Manual) 2, Band Neutrophils 0, Platelet Estimate DecreasedL, Platelet Morphology Normal, Hypochromasia 4+, Anisocytosis 1+, Sodium Level 143, Potassium Level 3.2L, Chloride Level 108H, Carbon Dioxide Level 25, Anion Gap 10, Blood Urea Nitrogen 59H, Creatinine 1.9H, Estimat Glomerular Filtration Rate 42.5, Glucose Level 347H, Calcium Level 6.2#L, Ferritin 1007H, Lactate Dehydrogenase 390H, C-Reactive Protein, Quantitative 21.6H 12/25/19 08:30: White Blood Count 13.8H, Red Blood Count 3.55L, Hemoglobin 9.8#L, Hematocrit 31.2#L, Mean Corpuscular Volume 88, Mean Corpuscular Hemoglobin 27.5, Mean Corpuscular Hemoglobin Concent 31.3L, Red Cell Distribution Width 12.5, Platelet Count 178#, Mean Platelet Volume 7.3, Neutrophils (%) (Auto) , Lymphocytes (%) (Auto) , Monocytes (%) (Auto) , Eosinophils (%) (Auto) , Basophils (%) (Auto) , Differential Total Cells Counted 100, Neutrophils % ( Manual) 83H, Lymphocytes % (Manual) 10L, Monocytes % (Manual) 6, Eosinophils % ( Manual) 1, Basophils % (Manual) 0, Band Neutrophils 0, Platelet Estimate Adequate, Platelet Morphology Normal, Hypochromasia 2+, Anisocytosis 1+, Fibrinogen 249, D-Dimer > 35.20H, Phosphorus Level 4.7, Magnesium Level 3.0H, Total Bilirubin 0.6, Direct Bilirubin 0.3, Aspartate Amino Transf (AST/SGOT) 20 , Alanine Aminotransferase (ALT/SGPT) 24, Alkaline Phosphatase 90, Total Protein 7.2, Albumin 2.5L 12/25/19 10:29: Arterial Blood pH 7.304L, Arterial Blood Partial Pressure CO2 68.8*H, Arterial Blood Partial Pressure O2 100.0, Arterial Blood HCO3 33.4H, Arterial Blood Oxygen Saturation 96.6, Arterial Blood Base Excess 5.7H, Devyn Test Positive Current Medications Medications (Trade) Dose Ordered Sig/Wiley Route PRN Reason Start Time Stop Time Status Last Admin Dose Admin Acetaminophen (Tylenol) 650 mg Q6H PRN ORAL Temp >100.5 12/24/19 13:15 01/07/20 13:14 Acetaminophen (Tylenol) 650 mg Q6H PRN RECTAL Temp >100.5 12/24/19 13:15 01/14/20 13:14 Carvedilol (Coreg) 3.125 mg EVERY 12 HOURS ORAL 12/24/19 21:00 01/10/20 20:59 Chlorhexidine Gluconate (Milagro-Hex 2%) 1 applic DAILY@2000 TOPIC 12/25/19 20:00 03/24/20 19:59 Dextrose (Dextrose 50%) 25 ml Q30M PRN IV Hypoglycemia 12/24/19 13:45 03/23/20 13:44 Dextrose (Dextrose 50%) 50 ml Q30M PRN IV Hypoglycemia 12/24/19 13:45 03/23/20 13:44 Heparin Sodium/ Sodium Chloride (Heparin 1000 units/500ml Premix) 1,000 unit ONCE IV 12/25/19 09:15 12/25/19 18:00 Insulin Aspart (NovoLOG) Q6HR SUBQ 12/24/19 18:00 03/23/20 17:59 12/25/19 05:58 Levetiracetam (Keppra) 1,000 mg Q12HR ORAL 12/24/19 21:00 01/06/20 00:00 12/25/19 08:54 Lidocaine HCl (Xylocaine 1% 30ml) 30 ml ONCE INJ 12/25/19 09:15 12/25/19 18:00 Norepinephrine Bitartrate 4 mg/ Dextrose 250 ml @ 0 mls/hr Q24H PRN IV For hypotension 12/24/19 19:00 01/23/20 18:59 12/24/19 23:14 Potassium Chloride 100 ml @ 100 mls/hr Q1H IV 12/25/19 08:15 12/25/19 12:14 12/25/19 09:57 Sodium Chloride 1,000 ml @ 75 mls/hr [id number] IV 12/24/19 13:15 01/23/20 09:29 12/25/19 02:43 Assessment/Plan Assessment/Plan IMPRESSION: 1. Cardiomyopathy. 2. Hypotension. 3. Left lung pneumonia. 4. [facility] resident. 5. Positive COVID-19. DISCUSSION: 1. Continue isolation 2. Continue current medications. 3. Off pressors. 4. Continue BiPAP; abg adequate 5. Pulmonary hygiene. 6. Broad-spectrum antibiotics. 7. I will follow. 8. Pulmonary hygiene 9. Continue diuresis, on Lasix 40 mg IV BID; CXR unchanged Would like to empirical anticoagulate however will hold off in view of sudden anemia requiring prbc Amber Walters Omar Syed MD December 25, 2019 11:02
--- NOTE | 2019-12-25 12:02 | NUR ---
NURSE NOTES: Repositioned patient. Kept dry, clean and comfortable.
--- NOTE | 2019-12-25 12:42 | Infectious Diseases Prog Note ---
Assessment/Plan Assessment/Plan Assessment: Septic shock-recurrent- back on pressors Fever;SP Mild leukocytosis, fluctuating; increased -12/14 u/a wbc 15-20, nit neg, leuk +1 Bcx Neg -u/a neg -Bcx Neg Probable PNA- 2ry to COVID19 (from [place] with confirmed cases) Acute hypoxic respiratory failure- was on NC, now on NRB- increasing FIo2 requiremetns -12/22 CXR: Minimally improved left, unchanged right infiltrates, since prior exam of 3 days earlier -12/19 CXR: Unchanged bilateral infiltrates, likely pneumonia, since prior exam of 3 days earlier. -12/16 CXR: Bilateral interstitial and airspace infiltrates are again demonstrated.Appearance is overall unchanged. There may be a small left pleural effusion,unchange -12/15 CRP 41.6, ferritin 1468 -12/14 CXR: . Worsening bilateral interstitial and airspace opacities. Probable small left pleural effusion. Difficult to evaluate the right costophrenic angle due to overlying pacemaker. 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 seizure disorder [place] resident ([facility]) Plan: -empiric IV Meropenem given recurrent leukocytosis and pressors requirements -12/21 SP IV Vancomycin #5 -12/18 SP Zosyn #5 - SPSolumedrol 40mg IV 12hrs (12/15-12/17); dc'ed by [facility] nurse - (day 10 of illness and worsening; around this time is seen the worsening of COVID19 pts mainly driven by inflammatory response) -12/10 SP Cefepime #6 -12/08 SP IV Vancomycin #4 -f/u cx -Monitor CBC/CMP, temperatures -COVID 19 precautions -clarify goals of care -aspiration precautions -inflammatory markers -f/u cx -monitor CXR; cxr am -f/u u/a w/ reflex, Bcx x2, sp cx Thank you for consulting [facility]. Will continue to follow along with you. Discussed with RN, Subjective Allergies: Coded Allergies: No Known Allergies (Unverified , 07/28/14) Subjective afebrile trasnferred to ICU, now on Bipap at 100% FIo2 on Levophed at 4 leukocytosis recurrent Hgb dropped to 6.4 yesterday Objective Vital Signs Last 24 Hour Vital Signs Date Time Temp Pulse Resp B/P (MAP) Pulse Ox O2 Delivery O2 Flow Rate FiO2 12/25/19 11:26 76 24 100 100 12/25/19 11:00 114/60 12/25/19 10:00 109/63 12/25/19 09:30 80 22 111/63 (79) 100 12/25/19 09:00 79 23 110/67 (81) 100 12/25/19 09:00 114/63 12/25/19 09:00 78 103/58 12/25/19 08:30 79 24 106/57 (73) 100 12/25/19 08:23 99 Bi-Pap 12/25/19 08:00 100 12/25/19 08:00 Bi-pap 12/25/19 08:00 102/65 12/25/19 08:00 97.8 87 26 107/61 (76) 100 12/25/19 07:38 78 25 100 100 12/25/19 07:30 81 22 105/60 (75) 100 12/25/19 07:00 82 22 103/58 (73) 100 12/25/19 07:00 99/61 12/25/19 06:34 86 25 107/59 (75) 100 12/25/19 06:14 107/58 12/25/19 06:00 87 24 105/59 (74) 100 12/25/19 05:30 82 26 101/53 (69) 98 12/25/19 05:14 99/49 12/25/19 05:00 81 21 99/49 (66) 96 12/25/19 04:30 82 23 96/53 (67) 97 12/25/19 04:14 100/55 12/25/19 04:00 100 12/25/19 04:00 98.2 83 23 100/55 (70) 100 12/25/19 04:00 Bi-pap 12/25/19 04:00 76 12/25/19 03:48 84 27 99 100 12/25/19 03:30 88 28 97/55 (69) 98 12/25/19 03:14 96/61 12/25/19 03:00 88 24 96/61 (73) 100 12/25/19 02:30 88 23 99/61 (74) 100 12/25/19 02:15 85 24 95/59 (71) 100 12/25/19 02:14 95/59 12/25/19 02:00 88 21 100/62 (75) 100 12/25/19 01:45 86 26 91/56 (68) 100 12/25/19 01:30 87 23 101/57 (72) 100 12/25/19 01:15 90 23 106/67 (80) 100 12/25/19 01:14 101/57 12/25/19 01:00 87 22 101/61 (74) 100 12/25/19 00:45 86 21 97/61 (73) 100 12/25/19 00:30 92 22 107/63 (78) 100 12/25/19 00:15 87 25 89/54 (66) 100 12/25/19 00:14 87/55 12/25/19 00:00 100 12/25/19 00:00 Bi-pap 12/25/19 00:00 92 12/25/19 00:00 98.7 87 25 91/55 (67) 100 12/24/19 23:45 87 23 92/57 (69) 100 12/24/19 23:36 93 25 99 100 12/24/19 23:30 90 24 98/60 (73) 100 12/24/19 23:15 92 24 97/60 (72) 100 12/24/19 23:14 89/53 12/24/19 23:00 89 24 89/53 (65) 100 12/24/19 22:30 95 23 93/56 (68) 100 12/24/19 22:00 91 22 99/55 (70) 100 12/24/19 21:30 91 21 97/62 (74) 100 12/24/19 21:00 91 20 100/63 (75) 100 12/24/19 20:59 91 86/50 12/24/19 20:30 87 23 86/51 (63) 100 12/24/19 20:18 90 22 89/53 (65) 100 12/24/19 20:00 Bi-pap 12/24/19 20:00 98.5 88 21 95/57 (70) 12/24/19 20:00 91 12/24/19 19:45 89 18 100/61 (74) 12/24/19 19:34 93 20 99 100 12/24/19 19:34 99 Bi-Pap 100 12/24/19 19:30 89 21 99/61 (74) 97 12/24/19 19:00 100 12/24/19 19:00 93 22 97/60 (72) 100 12/24/19 18:00 90 23 90/61 (71) 100 12/24/19 17:30 94 23 99/61 (74) 100 12/24/19 17:00 92 22 90/58 (69) 100 12/24/19 16:00 Bi-pap 12/24/19 16:00 98.6 88 24 92/62 (72) 100 12/24/19 15:15 98 27 118/72 (87) 100 12/24/19 15:12 94 27 100 100 12/24/19 15:00 94 25 91/58 (69) 100 12/24/19 14:45 93 24 103/51 (68) 100 12/24/19 14:30 96 29 95/59 (71) 100 12/24/19 14:00 96 29 94/64 (74) 100 12/24/19 13:30 97 30 103/54 (70) 100 12/24/19 13:00 103 30 104/63 (77) 100 Height (Feet): 5 Height (Inches): 8.00 Weight (Pounds): 173 Objective not examined to limit COVID19 exposure Laboratory Tests Test 12/24/19 13:10 12/25/19 04:00 12/25/19 08:30 12/25/19 10:29 Arterial Blood pH 7.298 (7.350-7.450) 7.304 (7.350-7.450) Arterial Blood Partial Pressure CO2 64.7 mmHg (35.0-45.0) *H 68.8 mmHg (35.0-45.0) *H Arterial Blood Partial Pressure O2 124.8 mmHg (75.0-100.0) H 100.0 mmHg (75.0-100.0) Arterial Blood HCO3 31.0 mmol/L (22.0-26.0) H 33.4 mmol/L (22.0-26.0) H Arterial Blood Oxygen Saturation 97.1 % (95-100) 96.6 % (95-100) Arterial Blood Base Excess 3.4 (-2-2) H 5.7 (-2-2) H Devyn Test Positive Positive White Blood Count 9.5 K/UL (4.8-10.8) 13.8 K/UL (4.8-10.8) H Red Blood Count 2.27 M/UL (4.70-6.10) L 3.55 M/UL (4.70-6.10) L Hemoglobin 6.4 G/DL (14.2-18.0) 9.8 G/DL (14.2-18.0) #L Hematocrit 20.2 % (42.0-52.0) #L 31.2 % (42.0-52.0) #L Mean Corpuscular Volume 89 FL (80-99) 88 FL (80-99) Mean Corpuscular Hemoglobin 28.3 PG (27.0-31.0) 27.5 PG (27.0-31.0) Mean Corpuscular Hemoglobin Concent 31.8 G/DL (32.0-36.0) L 31.3 G/DL (32.0-36.0) L Red Cell Distribution Width 13.0 % (11.6-14.8) 12.5 % (11.6-14.8) Platelet Count 99 K/UL (150-450) L 178 K/UL (150-450) # Mean Platelet Volume 7.5 FL (6.5-10.1) 7.3 FL (6.5-10.1) Neutrophils (%) (Auto) % (45.0-75.0) % (45.0-75.0) Lymphocytes (%) (Auto) % (20.0-45.0) % (20.0-45.0) Monocytes (%) (Auto) % (1.0-10.0) % (1.0-10.0) Eosinophils (%) (Auto) % (0.0-3.0) % (0.0-3.0) Basophils (%) (Auto) % (0.0-2.0) % (0.0-2.0) Differential Total Cells Counted 100 100 Neutrophils % (Manual) 91 % (45-75) H 83 % (45-75) H Lymphocytes % (Manual) 2 % (20-45) L 10 % (20-45) L Monocytes % (Manual) 2 % (1-10) 6 % (1-10) Eosinophils % (Manual) 3 % (0-3) 1 % (0-3) Basophils % (Manual) 2 % (0-2) 0 % (0-2) Band Neutrophils 0 % (0-8) 0 % (0-8) Platelet Estimate Decreased L Adequate Platelet Morphology Normal Normal Hypochromasia 4+ 2+ Anisocytosis 1+ 1+ Sodium Level 143 MMOL/L (136-145) Potassium Level 3.2 MMOL/L (3.5-5.1) L Chloride Level 108 MMOL/L (98-107) H Carbon Dioxide Level 25 MMOL/L (21-32) Anion Gap 10 mmol/L (5-15) Blood Urea Nitrogen 59 mg/dL (7-18) H Creatinine 1.9 MG/DL (0.55-1.30) H Estimat Glomerular Filtration Rate 42.5 mL/min (>60) Glucose Level 347 MG/DL (74-106) H Calcium Level 6.2 MG/DL (8.5-10.1) #L Ferritin 1007 NG/ML (8-388) H Lactate Dehydrogenase 390 U/L (81-234) H C-Reactive Protein, Quantitative 21.6 mg/dL (0.00-0.90) H Fibrinogen 249 mg/dL (200-400) D-Dimer > 35.20 mg/L FEU Phosphorus Level 4.7 MG/DL (2.5-4.9) Magnesium Level 3.0 MG/DL (1.8-2.4) H Total Bilirubin 0.6 MG/DL (0.2-1.0) Direct Bilirubin 0.3 MG/DL (0.0-0.3) Aspartate Amino Transf (AST/SGOT) 20 U/L (15-37) Alanine Aminotransferase (ALT/SGPT) 24 U/L (12-78) Alkaline Phosphatase 90 U/L (46-116) Total Protein 7.2 G/DL (6.4-8.2) Albumin 2.5 G/DL (3.4-5.0) L Current Medications Medications (Trade) Dose Ordered Sig/Wiley Route PRN Reason Start Time Stop Time Status Last Admin Dose Admin Acetaminophen (Tylenol) 650 mg Q6H PRN ORAL Temp >100.5 12/24/19 13:15 01/07/20 13:14 Acetaminophen (Tylenol) 650 mg Q6H PRN RECTAL Temp >100.5 12/24/19 13:15 01/14/20 13:14 Carvedilol (Coreg) 3.125 mg EVERY 12 HOURS ORAL 12/24/19 21:00 01/10/20 20:59 Chlorhexidine Gluconate (Milagro-Hex 2%) 1 applic DAILY@2000 TOPIC 12/25/19 20:00 03/24/20 19:59 Dextrose (Dextrose 50%) 25 ml Q30M PRN IV Hypoglycemia 12/24/19 13:45 03/23/20 13:44 Dextrose (Dextrose 50%) 50 ml Q30M PRN IV Hypoglycemia 12/24/19 13:45 03/23/20 13:44 Heparin Sodium/ Sodium Chloride (Heparin 1000 units/500ml Premix) 1,000 unit ONCE IV 12/25/19 09:15 12/25/19 18:00 Insulin Aspart (NovoLOG) Q6HR SUBQ 12/24/19 18:00 03/23/20 17:59 12/25/19 11:20 Levetiracetam (Keppra) 1,000 mg Q12HR ORAL 12/24/19 21:00 01/06/20 00:00 12/25/19 08:54 Lidocaine HCl (Xylocaine 1% 30ml) 30 ml ONCE INJ 12/25/19 09:15 12/25/19 18:00 Norepinephrine Bitartrate 4 mg/ Dextrose 250 ml @ 0 mls/hr Q24H PRN IV For hypotension 12/24/19 19:00 01/23/20 18:59 12/24/19 23:14 Sodium Chloride 1,000 ml @ 75 mls/hr [id number] IV 12/24/19 13:15 01/23/20 09:29 12/25/19 02:43 Sujatha Sanchez M.D. December 25, 2019 12:42
[2019-12-25] MEDS: Meropenem 1 GM in NS 55 ML IVPB SCH ×2 (13:36→20:22)
--- NOTE | 2019-12-25 13:46 | Cardiac Electrophysiology PN ---
Assessment/Plan Assessment/Plan 1. Septic Shock due to EF 40% and sepsis. BNP is 736. On Abx by Dr. Sanchez. On Levophed 2. CHF EF 40%. On Coreg 3.125 bid. 3. Status post right-sided MERT ICD. 4. Hypertension 5. History of CVA with residual weakness. 6. COVID-19 PNA, now on BIPAP 7. Hypernatremia. 8. Acute renal failure.Cr up from 0.9 to 2.8. Off Lasix and Lisinopril KOTA RN and Dr Vega Subjective Subjective In Covid isolation in ICU On levo 4 and BIPAP 15/ Objective Last 24 Hour Vital Signs Date Time Temp Pulse Resp B/P (MAP) Pulse Ox O2 Delivery O2 Flow Rate FiO2 12/25/19 12:00 Bi-pap 12/25/19 12:00 100 12/25/19 11:26 76 24 100 100 12/25/19 11:00 114/60 12/25/19 10:00 109/63 12/25/19 09:30 80 22 111/63 (79) 100 12/25/19 09:00 79 23 110/67 (81) 100 12/25/19 09:00 114/63 12/25/19 09:00 78 103/58 12/25/19 08:30 79 24 106/57 (73) 100 12/25/19 08:23 99 Bi-Pap 12/25/19 08:00 100 12/25/19 08:00 Bi-pap 12/25/19 08:00 102/65 12/25/19 08:00 97.8 87 26 107/61 (76) 100 12/25/19 07:38 78 25 100 100 12/25/19 07:30 81 22 105/60 (75) 100 12/25/19 07:00 82 22 103/58 (73) 100 12/25/19 07:00 99/61 12/25/19 06:34 86 25 107/59 (75) 100 12/25/19 06:14 107/58 12/25/19 06:00 87 24 105/59 (74) 100 12/25/19 05:30 82 26 101/53 (69) 98 12/25/19 05:14 99/49 12/25/19 05:00 81 21 99/49 (66) 96 12/25/19 04:30 82 23 96/53 (67) 97 12/25/19 04:14 100/55 12/25/19 04:00 100 12/25/19 04:00 98.2 83 23 100/55 (70) 100 12/25/19 04:00 Bi-pap 12/25/19 04:00 76 12/25/19 03:48 84 27 99 100 12/25/19 03:30 88 28 97/55 (69) 98 12/25/19 03:14 96/61 12/25/19 03:00 88 24 96/61 (73) 100 12/25/19 02:30 88 23 99/61 (74) 100 12/25/19 02:15 85 24 95/59 (71) 100 12/25/19 02:14 95/59 12/25/19 02:00 88 21 100/62 (75) 100 12/25/19 01:45 86 26 91/56 (68) 100 12/25/19 01:30 87 23 101/57 (72) 100 12/25/19 01:15 90 23 106/67 (80) 100 12/25/19 01:14 101/57 12/25/19 01:00 87 22 101/61 (74) 100 12/25/19 00:45 86 21 97/61 (73) 100 12/25/19 00:30 92 22 107/63 (78) 100 12/25/19 00:15 87 25 89/54 (66) 100 12/25/19 00:14 87/55 12/25/19 00:00 100 12/25/19 00:00 Bi-pap 12/25/19 00:00 92 12/25/19 00:00 98.7 87 25 91/55 (67) 100 12/24/19 23:45 87 23 92/57 (69) 100 12/24/19 23:36 93 25 99 100 12/24/19 23:30 90 24 98/60 (73) 100 12/24/19 23:15 92 24 97/60 (72) 100 12/24/19 23:14 89/53 12/24/19 23:00 89 24 89/53 (65) 100 12/24/19 22:30 95 23 93/56 (68) 100 12/24/19 22:00 91 22 99/55 (70) 100 12/24/19 21:30 91 21 97/62 (74) 100 12/24/19 21:00 91 20 100/63 (75) 100 12/24/19 20:59 91 86/50 12/24/19 20:30 87 23 86/51 (63) 100 12/24/19 20:18 90 22 89/53 (65) 100 12/24/19 20:00 Bi-pap 12/24/19 20:00 98.5 88 21 95/57 (70) 12/24/19 20:00 91 12/24/19 19:45 89 18 100/61 (74) 12/24/19 19:34 93 20 99 100 12/24/19 19:34 99 Bi-Pap 100 12/24/19 19:30 89 21 99/61 (74) 97 12/24/19 19:00 100 12/24/19 19:00 93 22 97/60 (72) 100 12/24/19 18:00 90 23 90/61 (71) 100 12/24/19 17:30 94 23 99/61 (74) 100 12/24/19 17:00 92 22 90/58 (69) 100 12/24/19 16:00 Bi-pap 12/24/19 16:00 98.6 88 24 92/62 (72) 100 12/24/19 15:15 98 27 118/72 (87) 100 12/24/19 15:12 94 27 100 100 12/24/19 15:00 94 25 91/58 (69) 100 12/24/19 14:45 93 24 103/51 (68) 100 12/24/19 14:30 96 29 95/59 (71) 100 12/24/19 14:00 96 29 94/64 (74) 100 Intake and Output 12/24/19 12/25/19 19:00 07:00 Intake Total 868.75 ml 1009.0 ml Output Total 200 ml Balance 668.75 ml 1009.0 ml IV Total 868.75 ml 1009.0 ml Output Urine Total 200 ml # Voids 595 Laboratory Tests Test 12/25/19 04:00 12/25/19 08:30 12/25/19 10:29 White Blood Count 9.5 K/UL (4.8-10.8) 13.8 K/UL (4.8-10.8) H Red Blood Count 2.27 M/UL (4.70-6.10) L 3.55 M/UL (4.70-6.10) L Hemoglobin 6.4 G/DL (14.2-18.0) 9.8 G/DL (14.2-18.0) #L Hematocrit 20.2 % (42.0-52.0) #L 31.2 % (42.0-52.0) #L Mean Corpuscular Volume 89 FL (80-99) 88 FL (80-99) Mean Corpuscular Hemoglobin 28.3 PG (27.0-31.0) 27.5 PG (27.0-31.0) Mean Corpuscular Hemoglobin Concent 31.8 G/DL (32.0-36.0) L 31.3 G/DL (32.0-36.0) L Red Cell Distribution Width 13.0 % (11.6-14.8) 12.5 % (11.6-14.8) Platelet Count 99 K/UL (150-450) L 178 K/UL (150-450) # Mean Platelet Volume 7.5 FL (6.5-10.1) 7.3 FL (6.5-10.1) Neutrophils (%) (Auto) % (45.0-75.0) % (45.0-75.0) Lymphocytes (%) (Auto) % (20.0-45.0) % (20.0-45.0) Monocytes (%) (Auto) % (1.0-10.0) % (1.0-10.0) Eosinophils (%) (Auto) % (0.0-3.0) % (0.0-3.0) Basophils (%) (Auto) % (0.0-2.0) % (0.0-2.0) Differential Total Cells Counted 100 100 Neutrophils % (Manual) 91 % (45-75) H 83 % (45-75) H Lymphocytes % (Manual) 2 % (20-45) L 10 % (20-45) L Monocytes % (Manual) 2 % (1-10) 6 % (1-10) Eosinophils % (Manual) 3 % (0-3) 1 % (0-3) Basophils % (Manual) 2 % (0-2) 0 % (0-2) Band Neutrophils 0 % (0-8) 0 % (0-8) Platelet Estimate Decreased L Adequate Platelet Morphology Normal Normal Hypochromasia 4+ 2+ Anisocytosis 1+ 1+ Sodium Level 143 MMOL/L (136-145) Potassium Level 3.2 MMOL/L (3.5-5.1) L Chloride Level 108 MMOL/L (98-107) H Carbon Dioxide Level 25 MMOL/L (21-32) Anion Gap 10 mmol/L (5-15) Blood Urea Nitrogen 59 mg/dL (7-18) H Creatinine 1.9 MG/DL (0.55-1.30) H Estimat Glomerular Filtration Rate 42.5 mL/min (>60) Glucose Level 347 MG/DL (74-106) H Calcium Level 6.2 MG/DL (8.5-10.1) #L Ferritin 1007 NG/ML (8-388) H Lactate Dehydrogenase 390 U/L (81-234) H C-Reactive Protein, Quantitative 21.6 mg/dL (0.00-0.90) H Fibrinogen 249 mg/dL (200-400) D-Dimer > 35.20 mg/L FEU Phosphorus Level 4.7 MG/DL (2.5-4.9) Magnesium Level 3.0 MG/DL (1.8-2.4) H Total Bilirubin 0.6 MG/DL (0.2-1.0) Direct Bilirubin 0.3 MG/DL (0.0-0.3) Aspartate Amino Transf (AST/SGOT) 20 U/L (15-37) Alanine Aminotransferase (ALT/SGPT) 24 U/L (12-78) Alkaline Phosphatase 90 U/L (46-116) Total Protein 7.2 G/DL (6.4-8.2) Albumin 2.5 G/DL (3.4-5.0) L Arterial Blood pH 7.304 (7.350-7.450) Arterial Blood Partial Pressure CO2 68.8 mmHg (35.0-45.0) *H Arterial Blood Partial Pressure O2 100.0 mmHg (75.0-100.0) Arterial Blood HCO3 33.4 mmol/L (22.0-26.0) H Arterial Blood Oxygen Saturation 96.6 % (95-100) Arterial Blood Base Excess 5.7 (-2-2) H Devyn Test Positive Objective HEAD AND NECK: Mild JVD.BIPAP is on LUNGS: Decreased breath sounds and rhonchi CARDIOVASCULAR: Regular S1 and S2 with no gallop. ABDOMEN: Soft. EXTREMITIES: 1+ pitting edema. Defibrillator is in right subclavian. Shai Bullard MD December 25, 2019 13:46
--- NOTE | 2019-12-25 14:02 | NUR ---
NURSE NOTES: Talked with [facility] if they can do PICC placement today. He said it will be done tomorrow.
--- NOTE | 2019-12-25 14:22 | NUR ---
CASE MANAGEMENT: DCP ORDER FOR JOSE ENRIQUE CLEMENT NOTED [facility] UNABLE TO ACCEPT COVID-19 PATIENTS COVID-19 [facility] CM NOTED NO FAMILY LISTED ON FS; CALLED [facility] TO LOCATE FAMILY. PER [facility] NO FAMILY OR NEXT OF KIN LISTED. [facility] UNABLE TO ACCEPT THE PATIENT WITHOUT FAMILY REPRESENTATION. DR. ANDRE MADE AWARE.
--- NOTE | 2019-12-25 16:22 | NUR ---
NURSE NOTES: Bed bath given. Still on bipap 15/5 with FiO2 100%. O2 sat 100% on the monitor. Will continue plan of care.
--- NOTE | 2019-12-25 18:02 | NUR ---
NURSE NOTES: Repositioned patient. Kept dry, clean and comfortable.
--- NOTE | 2019-12-25 19:10 | NUR ---
HAND-OFF: Report given to BARBARA Monreal. Endorsed plan of care.
--- NOTE | 2019-12-25 19:11 | NUR ---
NURSE NOTES: Received patient from BARBARA Hernandes. Will continue plan of care.
--- NOTE | 2019-12-25 19:59 | Progress Note ---
DATE: 12/25/2019 SUBJECTIVE: This is a 69-year-old male patient with altered mental status, hypertension, sepsis, and patient also has , seizures, suspected COVID-19, COPD, anemia, diabetes causing him to have a decline in cognition below his baseline and altered mental status. That is why, his attending has requested daily psychiatric consultation. MENTAL STATUS EXAMINATION: This is a 69-year-old male. Appearance is disheveled. Attitude, irritable and agitated. Affect, guarded and restricted. Intellect poor. Mood, depressed and anxious. Motor activity, psychomotor agitation. Insight and judgment is poor. DIAGNOSIS: Major depressive disorder, mild, recurrent with psychotic features, rule out dementia with psychosis. PLAN: Treat him with a medication regimen consisting of . Patient will continued to be followed by Psychiatry throughout hospital course. He is in ICU currently, so he has got significant altered mental status, confusion, and continued to be followed by Psychiatry in order to prevent any further decline in his cognition. Chart reviewed. Discussed with staff. Seen and assessed in ICU. Mirna Adkins M.D. DR: JANETT JOB#: [id number] CC:
--- NOTE | 2019-12-25 20:00 | NUR ---
NURSE NOTES: Patient is resting and response to stimuli. On BiPAP 15/5 @100%. BP:105/64, HR:91, RESP:31, TEMP:100.0 axiillary. L NGT in place but NPO status at the moment. Mosqueda catheter in place and draining. Right femoral TLC running 1/2 NS @ 75ml/hr and Levophed @ 4mcgs/min. Safety measures in place. Will continue plan of care.
[2019-12-25] MEDS: Dyna-Hex 2% Top Sol 2oz TOPIC SCH (20:22)
--- NOTE | 2019-12-25 22:00 | NUR ---
NURSE NOTES: Levophed continues to run at 4mcgs. BP:96/60 MAP:68. Tylenol given for elevated temp. Patient is sleeping.
[2019-12-26] VITALS (58 sets, daily range): BP systolic 79–152; BP diastolic 49–85
--- NOTE | 2019-12-26 | NUR ---
NURSE NOTES: Patient is resting. No changes in condition. Blood sugar 163, 3 units novolog given. Levophed continues at 4mcgs. BP:107/61, HR:85.
--- NOTE | 2019-12-26 02:00 | NUR ---
NURSE NOTES: No changes in patient condition. He continues to be responsive to stimuli. Remains running Levophed @ 4mcgs/min.
--- NOTE | 2019-12-26 04:00 | NUR ---
NURSE NOTES: Bed bath given, Linens changes, turned and repositioned. Patient is comfortable.
[2019-12-26] MEDS: NovoLOG Insulin Flexpen SUBQ SCH ×4 (05:36→23:32)
[2019-12-26 05:40] LABS: HEMATOCRIT 29.8 % (42.0-52.0); HEMOGLOBIN 9.5 G/DL (14.2-18.0); MEAN CORPUSCULAR VOLUME 88 FL (80-99); PLATELET COUNT 181 K/UL (150-450); RED BLOOD COUNT 3.39 M/UL (4.70-6.10); RED CELL DISTRIBUTION WIDTH 12.2 % (11.6-14.8); WHITE BLOOD COUNT 13.9 K/UL (4.8-10.8)
[2019-12-26 05:45] LABS: APPEARANCE,URINE CLOUDY; BILIRUBIN, URINE NEGATIVE (NEGATIVE); GLUCOSE, URINE (UA) NEGATIVE (NEGATIVE); KETONES,URINE NEGATIVE (NEGATIVE); LEUKOCYTE ESTERASE ,URINE 2+ (NEGATIVE); NITRITE,URINE NEGATIVE (NEGATIVE); PH,URINE 5 (4.5-8.0); PROTEIN,URINE 2+ (NEGATIVE); UROBILINOGEN,URINE 4 MG/DL (0.0-1.0)
--- NOTE | 2019-12-26 06:00 | NUR ---
NURSE NOTES: Decreased Levophed to 2mcgs. BP:118/66. Will monitor.
[2019-12-26 06:15] LABS: COLOR,URINE YELLOW
[2019-12-26 06:31] LABS: ALANINE AMINOTRANSFERASE 22 U/L (12-78); ALBUMIN 2.2 G/DL (3.4-5.0); ALBUMIN/GLOBULIN RATIO 0.5 (1.0-2.7); ALKALINE PHOSPHATASE 88 U/L (46-116); ANION GAP 8 mmol/L (5-15); ASPARTATE AMINO TRANSFERASE 26 U/L (15-37); BILIRUBIN,TOTAL 0.7 MG/DL (0.2-1.0); BLOOD UREA NITROGEN 67 mg/dL (7-18); CALCIUM 9.1 MG/DL (8.5-10.1); CARBON DIOXIDE 30 MMOL/L (21-32); CHLORIDE 108 MMOL/L (98-107); CREATININE 2.1 MG/DL (0.55-1.30); PHOSPHORUS 2.9 MG/DL (2.5-4.9); POTASSIUM 5.2 MMOL/L (3.5-5.1); SODIUM 146 MMOL/L (136-145)
--- NOTE | 2019-12-26 07:03 | NUR ---
NURSE NOTES: Received report from BARBARA Monreal. Patient asleep and responsive to verbal. On Bipap 15/5 with FiO2 100%. NPO status. Right NGT intact and clamped. Right femoral TLC intact and running with 1/2NS @75ml/hr and Levophed 2mcg/min. Left soft wrist band restraints on. Left hand is warm to touch. Kept dry, clean, comfortable and HOB>30. Will continue plan of care.
--- NOTE | 2019-12-26 07:06 | NUR ---
HAND-OFF: Report given to BARBARA PACHECO.
[2019-12-26] MEDS: Meropenem 1 GM in NS 55 ML IVPB SCH ×2 (08:29→20:40)
[2019-12-26] MEDS: levETIRAcetam 500mg/5ml Liquid NG SCH ×2 (08:30→20:40)
--- NOTE | 2019-12-26 09:39 | NUR ---
NURSE NOTES: Seen by Dr. Vega and assessed patient. No new order at this time.
--- NOTE | 2019-12-26 10:15 | NUR ---
RADIOLOGY DEPT., CHEST X-RAY DONE.-P.DYE
--- NOTE | 2019-12-26 10:50 | NUR ---
NURSE NOTES: Informed Dr. Montalvo of ABG result. Ordered heparin drip.
--- NOTE | 2019-12-26 11:03 | Pulmonology Progress Note ---
Subjective ROS Limited/Unobtainable: No Interval Events: Doing poorly; now on BiPAP Constitutional: Reports: no symptoms HEENT: Repors: no symptoms Respiratory: Reports: dry cough, shortness of breath Cardiovascular: Reports: no symptoms Gastrointestinal/Abdominal: Reports: no symptoms Genitourinary: Reports: no symptoms Neurologic: Reports: no symptoms Allergies: Coded Allergies: No Known Allergies (Unverified , 07/28/14) All Systems: reviewed and negative except above Objective Last 24 Hour Vital Signs Date Time Temp Pulse Resp B/P (MAP) Pulse Ox O2 Delivery O2 Flow Rate FiO2 12/26/19 09:00 81 116/67 12/26/19 09:00 90 37 121/54 (76) 84 12/26/19 08:30 84 37 115/61 (79) 97 12/26/19 08:00 100 12/26/19 08:00 98.2 82 30 117/68 (84) 98 12/26/19 08:00 81 12/26/19 08:00 Bi-pap 12/26/19 07:30 79 24 111/73 (86) 99 12/26/19 07:00 116/67 12/26/19 07:00 81 28 116/67 (83) 99 12/26/19 06:45 82 30 118/70 (86) 99 12/26/19 06:30 84 35 118/66 (83) 97 12/26/19 06:15 84 33 117/69 (85) 98 12/26/19 06:00 84 31 106/69 (81) 98 12/26/19 06:00 106/56 12/26/19 05:45 86 36 115/69 (84) 98 12/26/19 05:30 84 32 118/67 (84) 97 12/26/19 05:15 85 35 122/72 (89) 100 12/26/19 05:00 122/72 12/26/19 05:00 83 32 126/67 (86) 98 12/26/19 04:45 80 30 121/70 (87) 99 12/26/19 04:30 81 34 120/67 (84) 98 12/26/19 04:15 84 40 133/67 (89) 86 12/26/19 04:00 133/67 12/26/19 04:00 Bi-pap 12/26/19 04:00 100 5/14/20 04:00 98.7 79 30 113/71 (85) 94 12/26/19 03:45 79 35 112/67 (82) 94 12/26/19 03:35 78 12/26/19 03:30 81 36 112/67 (82) 95 12/26/19 03:16 100 22 82 60 12/26/19 03:15 82 35 115/69 (84) 98 12/26/19 03:00 83 28 114/70 (85) 100 12/26/19 03:00 115/69 12/26/19 02:45 81 26 124/64 (84) 100 12/26/19 02:30 82 27 110/67 (81) 100 12/26/19 02:15 82 27 109/69 (82) 100 12/26/19 02:00 109/69 12/26/19 02:00 82 27 110/67 (81) 100 12/26/19 01:45 83 28 103/64 (77) 100 12/26/19 01:30 81 28 105/66 (79) 100 12/26/19 01:15 85 28 107/63 (78) 100 12/26/19 01:00 79 23 108/66 (80) 100 12/26/19 01:00 107/63 12/26/19 00:45 77 24 108/66 (80) 100 12/26/19 00:30 84 26 104/64 (77) 100 12/26/19 00:15 80 24 102/64 (77) 100 12/26/19 00:00 Bi-pap 12/26/19 00:00 99.8 81 24 107/61 (76) 100 12/26/19 00:00 102/64 12/25/19 23:51 100 22 79 100 12/25/19 23:45 85 30 95/64 (74) 99 12/25/19 23:30 79 24 102/63 (76) 100 12/25/19 23:23 82 12/25/19 23:15 84 27 94/64 (74) 99 12/25/19 23:00 82 23 99/60 (73) 100 12/25/19 23:00 94/64 12/25/19 22:45 83 25 93/61 (72) 100 5/13/20 22:30 83 25 93/58 (70) 100 12/25/19 22:15 85 27 101/59 (73) 100 12/25/19 22:00 101/59 12/25/19 22:00 84 27 94/65 (75) 100 12/25/19 21:45 79 26 96/60 (72) 100 12/25/19 21:30 86 29 102/63 (76) 100 12/25/19 21:15 87 27 98/58 (71) 100 12/25/19 21:00 95/66 12/25/19 20:53 100.1 12/25/19 20:30 89 28 107/64 (78) 100 12/25/19 20:15 91 29 102/61 (75) 100 12/25/19 20:11 90 105/64 12/25/19 20:00 100.5 91 29 105/64 (78) 100 12/25/19 20:00 100 12/25/19 20:00 105/59 12/25/19 20:00 Bi-pap 12/25/19 19:54 100 Bi-Pap 100 12/25/19 19:54 92 33 100 100 12/25/19 19:45 91 30 123/64 (83) 100 12/25/19 19:39 92 12/25/19 19:30 92 31 108/62 (77) 100 12/25/19 19:15 91 32 112/63 (79) 100 12/25/19 19:00 112/63 12/25/19 19:00 90 33 108/65 (79) 100 12/25/19 18:30 92 28 114/65 (81) 12/25/19 18:00 111/67 12/25/19 18:00 86 22 113/67 (82) 12/25/19 17:30 87 27 119/64 (82) 12/25/19 17:00 85 32 133/85 (101) 94 12/25/19 17:00 133/85 12/25/19 16:30 82 27 99/64 (76) 95 12/25/19 16:02 107/60 12/25/19 16:00 Bi-pap 12/25/19 16:00 108/59 12/25/19 16:00 82 12/25/19 16:00 97.6 84 24 108/59 (75) 100 12/25/19 16:00 100 12/25/19 15:30 82 26 109/57 (74) 100 12/25/19 15:24 82 24 100 100 12/25/19 15:00 79 23 115/59 (77) 99 12/25/19 15:00 115/59 12/25/19 14:30 76 23 115/59 (77) 100 12/25/19 14:00 123/62 12/25/19 14:00 77 23 123/62 (82) 100 12/25/19 13:30 77 26 112/55 (74) 100 12/25/19 13:00 79 26 104/58 (73) 100 12/25/19 13:00 112/55 12/25/19 12:30 76 24 102/61 (75) 100 12/25/19 12:00 Bi-pap 12/25/19 12:00 76 12/25/19 12:00 100 12/25/19 12:00 97.2 74 23 108/61 (77) 100 12/25/19 12:00 108/61 12/25/19 11:30 76 24 114/61 (78) 100 12/25/19 11:26 76 24 100 100 Intake and Output 12/25/19 12/26/19 19:00 07:00 Intake Total 1285 ml 1092.50 ml Balance 1285 ml 1092.50 ml IV Total 1285 ml 1032.50 ml Other 60 ml # Voids [phone] HEENT: atraumatic, anicteric Respiratory/Chest: chest wall non-tender, decreased breath sounds Cardiovascular: normal peripheral pulses Abdomen: soft, non tender, non distended Neurologic/Psychiatric: alert, responsive Laboratory Tests 12/26/19 03:00: Urine Color Yellow, Urine Appearance Cloudy, Urine pH 5, Urine Specific [place] 1.015, Urine Protein 2+H, Urine Glucose (UA) Negative, Urine Ketones Negative, Urine Blood 3+H, Urine Nitrite Negative, Urine Bilirubin Negative, Urine Urobilinogen 4H, Urine Leukocyte Esterase 2+H, Urine RBC 5-10H, Urine WBC 5-10H , Urine Squamous Epithelial Cells Few, Urine Uric Acid Crystals ManyH, Urine Bacteria ManyH, Urine Yeast ManyH 12/26/19 05:17: White Blood Count 13.9H, Red Blood Count 3.39L, Hemoglobin 9.5L, Hematocrit 29.8L, Mean Corpuscular Volume 88, Mean Corpuscular Hemoglobin 28.0, Mean Corpuscular Hemoglobin Concent 31.9L, Red Cell Distribution Width 12.2, Platelet Count 181, Mean Platelet Volume 8.5, Neutrophils (%) (Auto) , Lymphocytes (%) (Auto) , Monocytes (%) (Auto) , Eosinophils (%) (Auto) , Basophils (%) (Auto) , Differential Total Cells Counted 100, Neutrophils % ( Manual) 84H, Lymphocytes % (Manual) 6L, Monocytes % (Manual) 7, Eosinophils % ( Manual) 2, Basophils % (Manual) 1, Band Neutrophils 0, Platelet Estimate Adequate, Platelet Morphology Normal, Hypochromasia 2+, Anisocytosis 1+, Sodium Level 146H, Potassium Level 5.2#H, Chloride Level 108H, Carbon Dioxide Level 30 , Anion Gap 8, Blood Urea Nitrogen 67H, Creatinine 2.1H, Estimat Glomerular Filtration Rate 37.9, Glucose Level 246#H, Calcium Level 9.1#, Phosphorus Level 2.9, Magnesium Level 2.7H, Total Bilirubin 0.7, Aspartate Amino Transf (AST/SGOT ) 26, Alanine Aminotransferase (ALT/SGPT) 22, Alkaline Phosphatase 88, Troponin I 0.008, Total Protein 7.0, Albumin 2.2L, Globulin 4.8, Albumin/Globulin Ratio 0.5L 12/26/19 10:18: Arterial Blood pH 7.407, Arterial Blood Partial Pressure CO2 51.2H, Arterial Blood Partial Pressure O2 57.0L, Arterial Blood HCO3 31.5H, Arterial Blood Oxygen Saturation 88.5*L, Arterial Blood Base Excess 5.9H, Devyn Test Positive Current Medications Medications (Trade) Dose Ordered Sig/Wiley Route PRN Reason Start Time Stop Time Status Last Admin Dose Admin Acetaminophen (Tylenol) 650 mg Q6H PRN ORAL Temp >100.5 12/24/19 13:15 01/07/20 13:14 12/25/19 20:23 Acetaminophen (Tylenol) 650 mg Q6H PRN RECTAL Temp >100.5 12/24/19 13:15 01/14/20 13:14 Carvedilol (Coreg) 3.125 mg EVERY 12 HOURS ORAL 12/24/19 21:00 01/10/20 20:59 Chlorhexidine Gluconate (Milagro-Hex 2%) 1 applic DAILY@2000 TOPIC 12/25/19 20:00 03/24/20 19:59 12/25/19 20:22 Dextrose (Dextrose 50%) 25 ml Q30M PRN IV Hypoglycemia 12/24/19 13:45 03/23/20 13:44 Dextrose (Dextrose 50%) 50 ml Q30M PRN IV Hypoglycemia 12/24/19 13:45 03/23/20 13:44 Insulin Aspart (NovoLOG) Q6HR SUBQ 12/24/19 18:00 03/23/20 17:59 12/26/19 05:36 Levetiracetam (Keppra) 1,000 mg Q12HR NG 12/26/19 09:00 01/25/20 08:59 12/26/19 08:30 Meropenem 1 gm/ Sodium Chloride 55 ml @ 110 mls/hr Q12HR IVPB 12/25/19 14:00 12/30/19 13:59 12/26/19 08:29 Norepinephrine Bitartrate 4 mg/ Dextrose 250 ml @ 0 mls/hr Q24H PRN IV For hypotension 12/24/19 19:00 01/23/20 18:59 12/25/19 16:02 Sodium Chloride 1,000 ml @ 75 mls/hr [id number] IV 12/24/19 13:15 01/23/20 09:29 12/26/19 05:35 Assessment/Plan Assessment/Plan IMPRESSION: 1. Cardiomyopathy. 2. Hypotension. 3. Left lung pneumonia. 4. shelter resident. 5. Positive COVID-19. DISCUSSION: 1. Continue isolation 2. Continue current medications. 3. Off pressors. 4. Continue BiPAP; abg adequate 5. Pulmonary hygiene. 6. Broad-spectrum antibiotics. 7. I will follow. 8. Pulmonary hygiene 9. Continue diuresis, on Lasix 40 mg IV BID; CXR unchanged Would like to empirical anticoagulate however will hold off in view of sudden anemia requiring prbc Amber Walters Omar Syed MD December 26, 2019 11:03
--- NOTE | 2019-12-26 11:45 | NUR ---
NURSE NOTES: Collected blood for PTT and sent to lab.
--- NOTE | 2019-12-26 12:14 | Infectious Diseases Prog Note ---
Assessment/Plan Assessment/Plan Assessment: Septic shock-recurrent- off pressors now Fever;SP Mild leukocytosis, fluctuating; increased -12/25 uA wbc 5-10, nit neg, leuk +2; ucx p -12/23 Bcx p sp cx -12/14 u/a wbc 15-20, nit neg, leuk +1 Bcx Neg -u/a neg -Bcx Neg Probable PNA- 2ry to COVID19 (from [place] with confirmed cases) Acute hypoxic respiratory failure- was on NC, now on NRB- increasing FIo2 requiremetns -12/22 CXR: Minimally improved left, unchanged right infiltrates, since prior exam of 3 days earlier -12/19 CXR: Unchanged bilateral infiltrates, likely pneumonia, since prior exam of 3 days earlier. -12/16 CXR: Bilateral interstitial and airspace infiltrates are again demonstrated.Appearance is overall unchanged. There may be a small left pleural effusion,unchange -12/15 CRP 41.6, ferritin 1468 -12/14 CXR: . Worsening bilateral interstitial and airspace opacities. Probable small left pleural effusion. Difficult to evaluate the right costophrenic angle due to overlying pacemaker. 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 seizure disorder [place] [facility] Plan: -Cont empiric IV Meropenem #2 given recurrent leukocytosis and pressors requirements -Consider steroids -12/21 SP IV Vancomycin #5 -12/18 SP Zosyn #5 - SPSolumedrol 40mg IV 12hrs (12/15-12/17); dc'ed by contact center engineer - (day 10 of illness and worsening; around this time is seen the worsening of COVID19 pts mainly driven by inflammatory response) -12/10 SP Cefepime #6 -12/08 SP IV Vancomycin #4 -f/u cx -Monitor CBC/CMP, temperatures -COVID 19 precautions -clarify goals of care -aspiration precautions -inflammatory markers -f/u cx -monitor CXR -f/u ucx, Bcx x2, sp cx Thank you for consulting [facility]. Will continue to follow along with you. Discussed with RN, Subjective Allergies: Coded Allergies: No Known Allergies (Unverified , 07/28/14) Subjective Tm 100.5 remains on Bipap Fio2 100%, PaO2 57 mild leukocytosis off pressors now Objective Vital Signs Last 24 Hour Vital Signs Date Time Temp Pulse Resp B/P (MAP) Pulse Ox O2 Delivery O2 Flow Rate FiO2 12/26/19 11:30 120 42 148/80 (102) 89 12/26/19 11:00 106 36 140/77 (98) 97 12/26/19 10:30 99 33 136/73 (94) 98 12/26/19 10:00 94 30 116/71 (86) 98 12/26/19 09:30 88 32 126/69 (88) 100 12/26/19 09:00 81 116/67 12/26/19 09:00 90 37 121/54 (76) 84 12/26/19 08:30 84 37 115/61 (79) 97 12/26/19 08:00 100 12/26/19 08:00 98.2 82 30 117/68 (84) 98 12/26/19 08:00 81 12/26/19 08:00 Bi-pap 12/26/19 07:30 79 24 111/73 (86) 99 12/26/19 07:00 116/67 12/26/19 07:00 81 28 116/67 (83) 99 12/26/19 06:45 82 30 118/70 (86) 99 12/26/19 06:30 84 35 118/66 (83) 97 12/26/19 06:15 84 33 117/69 (85) 98 12/26/19 06:00 84 31 106/69 (81) 98 12/26/19 06:00 106/56 12/26/19 05:45 86 36 115/69 (84) 98 12/26/19 05:30 84 32 118/67 (84) 97 12/26/19 05:15 85 35 122/72 (89) 100 12/26/19 05:00 122/72 12/26/19 05:00 83 32 126/67 (86) 98 12/26/19 04:45 80 30 121/70 (87) 99 12/26/19 04:30 81 34 120/67 (84) 98 12/26/19 04:15 84 40 133/67 (89) 86 12/26/19 04:00 133/67 12/26/19 04:00 Bi-pap 12/26/19 04:00 100 12/26/19 04:00 98.7 79 30 113/71 (85) 94 12/26/19 03:45 79 35 112/67 (82) 94 12/26/19 03:35 78 12/26/19 03:30 81 36 112/67 (82) 95 12/26/19 03:16 100 22 82 60 12/26/19 03:15 82 35 115/69 (84) 98 12/26/19 03:00 83 28 114/70 (85) 100 12/26/19 03:00 115/69 12/26/19 02:45 81 26 124/64 (84) 100 12/26/19 02:30 82 27 110/67 (81) 100 12/26/19 02:15 82 27 109/69 (82) 100 12/26/19 02:00 109/69 12/26/19 02:00 82 27 110/67 (81) 100 12/26/19 01:45 83 28 103/64 (77) 100 12/26/19 01:30 81 28 105/66 (79) 100 12/26/19 01:15 85 28 107/63 (78) 100 12/26/19 01:00 79 23 108/66 (80) 100 12/26/19 01:00 107/63 12/26/19 00:45 77 24 108/66 (80) 100 12/26/19 00:30 84 26 104/64 (77) 100 12/26/19 00:15 80 24 102/64 (77) 100 12/26/19 00:00 Bi-pap 12/26/19 00:00 99.8 81 24 107/61 (76) 100 12/26/19 00:00 102/64 12/25/19 23:51 100 22 79 100 12/25/19 23:45 85 30 95/64 (74) 99 12/25/19 23:30 79 24 102/63 (76) 100 12/25/19 23:23 82 12/25/19 23:15 84 27 94/64 (74) 99 12/25/19 23:00 82 23 99/60 (73) 100 12/25/19 23:00 94/64 12/25/19 22:45 83 25 93/61 (72) 100 12/25/19 22:30 83 25 93/58 (70) 100 12/25/19 22:15 85 27 101/59 (73) 100 12/25/19 22:00 101/59 12/25/19 22:00 84 27 94/65 (75) 100 12/25/19 21:45 79 26 96/60 (72) 100 12/25/19 21:30 86 29 102/63 (76) 100 12/25/19 21:15 87 27 98/58 (71) 100 12/25/19 21:00 95/66 12/25/19 20:53 100.1 12/25/19 20:30 89 28 107/64 (78) 100 12/25/19 20:15 91 29 102/61 (75) 100 12/25/19 20:11 90 105/64 12/25/19 20:00 100.5 91 29 105/64 (78) 100 12/25/19 20:00 100 12/25/19 20:00 105/59 12/25/19 20:00 Bi-pap 12/25/19 19:54 100 Bi-Pap 100 12/25/19 19:54 92 33 100 100 12/25/19 19:45 91 30 123/64 (83) 100 12/25/19 19:39 92 12/25/19 19:30 92 31 108/62 (77) 100 12/25/19 19:15 91 32 112/63 (79) 100 12/25/19 19:00 112/63 12/25/19 19:00 90 33 108/65 (79) 100 12/25/19 18:30 92 28 114/65 (81) 12/25/19 18:00 111/67 12/25/19 18:00 86 22 113/67 (82) 12/25/19 17:30 87 27 119/64 (82) 12/25/19 17:00 85 32 133/85 (101) 94 12/25/19 17:00 133/85 12/25/19 16:30 82 27 99/64 (76) 95 12/25/19 16:02 107/60 12/25/19 16:00 Bi-pap 12/25/19 16:00 108/59 12/25/19 16:00 82 12/25/19 16:00 97.6 84 24 108/59 (75) 100 12/25/19 16:00 100 12/25/19 15:30 82 26 109/57 (74) 100 12/25/19 15:24 82 24 100 100 12/25/19 15:00 79 23 115/59 (77) 99 12/25/19 15:00 115/59 12/25/19 14:30 76 23 115/59 (77) 100 12/25/19 14:00 123/62 12/25/19 14:00 77 23 123/62 (82) 100 12/25/19 13:30 77 26 112/55 (74) 100 12/25/19 13:00 79 26 104/58 (73) 100 12/25/19 13:00 112/55 12/25/19 12:30 76 24 102/61 (75) 100 Height (Feet): 5 Height (Inches): 8.00 Weight (Pounds): 173 Objective not examined to limit COVID19 exposure Laboratory Tests Test 12/26/19 03:00 12/26/19 05:17 12/26/19 10:18 12/26/19 11:34 Urine Color Yellow Urine Appearance Cloudy Urine pH 5 (4.5-8.0) Urine Specific [place] 1.015 (1.005-1.035) Urine Protein 2+ (NEGATIVE) H Urine Glucose (UA) Negative (NEGATIVE) Urine Ketones Negative (NEGATIVE) Urine Blood 3+ (NEGATIVE) H Urine Nitrite Negative (NEGATIVE) Urine Bilirubin Negative (NEGATIVE) Urine Urobilinogen 4 MG/DL (0.0-1.0) H Urine Leukocyte Esterase 2+ (NEGATIVE) H Urine RBC 5-10 /HPF (0 - 0) H Urine WBC 5-10 /HPF (0 - 0) H Urine Squamous Epithelial Cells Few /LPF (NONE/OCC) Urine Uric Acid Crystals Many /LPF (NONE) H Urine Bacteria Many /HPF (NONE) H Urine Yeast Many /HPF (NONE) H White Blood Count 13.9 K/UL (4.8-10.8) H Red Blood Count 3.39 M/UL (4.70-6.10) L Hemoglobin 9.5 G/DL (14.2-18.0) L Hematocrit 29.8 % (42.0-52.0) L Mean Corpuscular Volume 88 FL (80-99) Mean Corpuscular Hemoglobin 28.0 PG (27.0-31.0) Mean Corpuscular Hemoglobin Concent 31.9 G/DL (32.0-36.0) L Red Cell Distribution Width 12.2 % (11.6-14.8) Platelet Count 181 K/UL (150-450) Mean Platelet Volume 8.5 FL (6.5-10.1) Neutrophils (%) (Auto) % (45.0-75.0) Lymphocytes (%) (Auto) % (20.0-45.0) Monocytes (%) (Auto) % (1.0-10.0) Eosinophils (%) (Auto) % (0.0-3.0) Basophils (%) (Auto) % (0.0-2.0) Differential Total Cells Counted 100 Neutrophils % (Manual) 84 % (45-75) H Lymphocytes % (Manual) 6 % (20-45) L Monocytes % (Manual) 7 % (1-10) Eosinophils % (Manual) 2 % (0-3) Basophils % (Manual) 1 % (0-2) Band Neutrophils 0 % (0-8) Platelet Estimate Adequate Platelet Morphology Normal Hypochromasia 2+ Anisocytosis 1+ Sodium Level 146 MMOL/L (136-145) H Potassium Level 5.2 MMOL/L (3.5-5.1) #H Chloride Level 108 MMOL/L (98-107) H Carbon Dioxide Level 30 MMOL/L (21-32) Anion Gap 8 mmol/L (5-15) Blood Urea Nitrogen 67 mg/dL (7-18) H Creatinine 2.1 MG/DL (0.55-1.30) H Estimat Glomerular Filtration Rate 37.9 mL/min (>60) Glucose Level 246 MG/DL (74-106) #H Calcium Level 9.1 MG/DL (8.5-10.1) # Phosphorus Level 2.9 MG/DL (2.5-4.9) Magnesium Level 2.7 MG/DL (1.8-2.4) H Total Bilirubin 0.7 MG/DL (0.2-1.0) Aspartate Amino Transf (AST/SGOT) 26 U/L (15-37) Alanine Aminotransferase (ALT/SGPT) 22 U/L (12-78) Alkaline Phosphatase 88 U/L (46-116) Troponin I 0.008 ng/mL (0.000-0.056) Total Protein 7.0 G/DL (6.4-8.2) Albumin 2.2 G/DL (3.4-5.0) L Globulin 4.8 g/dL Albumin/Globulin Ratio 0.5 (1.0-2.7) L Arterial Blood pH 7.407 (7.350-7.450) Arterial Blood Partial Pressure CO2 51.2 mmHg (35.0-45.0) H Arterial Blood Partial Pressure O2 57.0 mmHg (75.0-100.0) L Arterial Blood HCO3 31.5 mmol/L (22.0-26.0) H Arterial Blood Oxygen Saturation 88.5 % (95-100) *L Arterial Blood Base Excess 5.9 (-2-2) H Devyn Test Positive Activated Partial Thromboplast Time Pending Current Medications Medications (Trade) Dose Ordered Sig/Wiley Route PRN Reason Start Time Stop Time Status Last Admin Dose Admin Acetaminophen (Tylenol) 650 mg Q6H PRN ORAL Temp >100.5 12/24/19 13:15 01/07/20 13:14 12/25/19 20:23 Acetaminophen (Tylenol) 650 mg Q6H PRN RECTAL Temp >100.5 12/24/19 13:15 01/14/20 13:14 Carvedilol (Coreg) 3.125 mg EVERY 12 HOURS ORAL 12/24/19 21:00 01/10/20 20:59 Chlorhexidine Gluconate (Milagro-Hex 2%) 1 applic DAILY@1999 TOPIC 12/25/19 20:00 03/24/20 19:59 12/25/19 20:22 Dextrose (Dextrose 50%) 25 ml Q30M PRN IV Hypoglycemia 12/24/19 13:45 03/23/20 13:44 Dextrose (Dextrose 50%) 50 ml Q30M PRN IV Hypoglycemia 12/24/19 13:45 03/23/20 13:44 Heparin Sodium (Porcine) (Heparin 5000 units/ml) Initial bolus = 80 units... ONCE ONCE IV 12/26/19 11:15 12/26/19 11:16 UNV Heparin Sodium/ Dextrose 500 ml @ 28.25 mls/ hr ADJUST PER PROTOCOL IV 12/26/19 11:15 01/25/20 11:14 UNV Insulin Aspart (NovoLOG) Q6HR SUBQ 12/24/19 18:00 03/23/20 17:59 12/26/19 05:36 Levetiracetam (Keppra) 1,000 mg Q12HR NG 12/26/19 09:00 01/25/20 08:59 12/26/19 08:30 Meropenem 1 gm/ Sodium Chloride 55 ml @ 110 mls/hr Q12HR IVPB 12/25/19 14:00 12/30/19 13:59 12/26/19 08:29 Norepinephrine Bitartrate 4 mg/ Dextrose 250 ml @ 0 mls/hr Q24H PRN IV For hypotension 12/24/19 19:00 01/23/20 18:59 12/25/19 16:02 Sodium Chloride 1,000 ml @ 75 mls/hr [id number] IV 12/24/19 13:15 01/23/20 09:29 12/26/19 05:35 Sujatha Sanchez M.D. December 26, 2019 12:14
--- NOTE | 2019-12-26 12:25 | NUR ---
NURSE NOTES: Bed bath given.
[2019-12-26] MEDS ORDERED: Heparin 25,000u/D5W 500ml 500 ML IV SCH ×2 (13:00)
[2019-12-26] MEDS ORDERED: Heparin 5000 units/ml inj IV SCH (13:00)
--- NOTE | 2019-12-26 13:27 | General Progress Note ---
Assessment/Plan Problem List: (1) Suspected COVID-19 virus infection ICD Codes: Z20.828 - Contact with and (suspected) exposure to other viral communicable diseases SNOMED: 918326943 (2) Anemia ICD Codes: D64.9 - Anemia, unspecified SNOMED: 182430481 (3) Weak ICD Codes: R53.1 - Weakness SNOMED: 73367009 (4) COPD (chronic obstructive pulmonary disease) ICD Codes: J44.9 - Chronic obstructive pulmonary disease, unspecified SNOMED: 71854680 (5) Diabetes ICD Codes: E11.9 - Type 2 diabetes mellitus without complications SNOMED: 47800748 (6) Epileptic seizure, generalized ICD Codes: G40.309 - Generalized idiopathic epilepsy and epileptic syndromes, not intractable, without status epilepticus SNOMED: 46359566 (7) Altered mental status ICD Codes: R41.82 - Altered mental status, unspecified SNOMED: 892034702 Qualifiers: Qualified Codes: R41.82 - Altered mental status, unspecified (8) Hypotension ICD Codes: I95.9 - Hypotension, unspecified SNOMED: 96657073 Qualifiers: Qualified Codes: I95.9 - Hypotension, unspecified (9) UTI (urinary tract infection) ICD Codes: N39.0 - Urinary tract infection, site not specified SNOMED: 46096623 Status: unchanged Assessment/Plan: o2 pulm tx abx pt diet cbc bmp am needs picc, ltach eval Subjective Constitutional: Reports: weakness Allergies: Coded Allergies: No Known Allergies (Unverified , 07/28/14) All Systems: reviewed and negative except above Subjective bipap sleepy in icu Objective Last 24 Hour Vital Signs Date Time Temp Pulse Resp B/P (MAP) Pulse Ox O2 Delivery O2 Flow Rate FiO2 12/26/19 11:30 120 42 148/80 (102) 89 12/26/19 11:00 106 36 140/77 (98) 97 12/26/19 10:30 99 33 136/73 (94) 98 12/26/19 10:00 94 30 116/71 (86) 98 12/26/19 09:30 88 32 126/69 (88) 100 12/26/19 09:00 81 116/67 12/26/19 09:00 90 37 121/54 (76) 84 12/26/19 08:30 84 37 115/61 (79) 97 12/26/19 08:00 100 12/26/19 08:00 98.2 82 30 117/68 (84) 98 12/26/19 08:00 81 12/26/19 08:00 Bi-pap 12/26/19 07:30 79 24 111/73 (86) 99 12/26/19 07:00 116/67 12/26/19 07:00 81 28 116/67 (83) 99 12/26/19 06:45 82 30 118/70 (86) 99 12/26/19 06:30 84 35 118/66 (83) 97 12/26/19 06:15 84 33 117/69 (85) 98 12/26/19 06:00 84 31 106/69 (81) 98 12/26/19 06:00 106/56 12/26/19 05:45 86 36 115/69 (84) 98 12/26/19 05:30 84 32 118/67 (84) 97 12/26/19 05:15 85 35 122/72 (89) 100 12/26/19 05:00 122/72 12/26/19 05:00 83 32 126/67 (86) 98 12/26/19 04:45 80 30 121/70 (87) 99 12/26/19 04:30 81 34 120/67 (84) 98 12/26/19 04:15 84 40 133/67 (89) 86 12/26/19 04:00 133/67 12/26/19 04:00 Bi-pap 12/26/19 04:00 100 12/26/19 04:00 98.7 79 30 113/71 (85) 94 12/26/19 03:45 79 35 112/67 (82) 94 12/26/19 03:35 78 12/26/19 03:30 81 36 112/67 (82) 95 12/26/19 03:16 100 22 82 60 12/26/19 03:15 82 35 115/69 (84) 98 12/26/19 03:00 83 28 114/70 (85) 100 12/26/19 03:00 115/69 12/26/19 02:45 81 26 124/64 (84) 100 12/26/19 02:30 82 27 110/67 (81) 100 12/26/19 02:15 82 27 109/69 (82) 100 12/26/19 02:00 109/69 12/26/19 02:00 82 27 110/67 (81) 100 12/26/19 01:45 83 28 103/64 (77) 100 12/26/19 01:30 81 28 105/66 (79) 100 12/26/19 01:15 85 28 107/63 (78) 100 12/26/19 01:00 79 23 108/66 (80) 100 12/26/19 01:00 107/63 12/26/19 00:45 77 24 108/66 (80) 100 12/26/19 00:30 84 26 104/64 (77) 100 12/26/19 00:15 80 24 102/64 (77) 100 12/26/19 00:00 Bi-pap 12/26/19 00:00 99.8 81 24 107/61 (76) 100 12/26/19 00:00 102/64 12/25/19 23:51 100 22 79 100 12/25/19 23:45 85 30 95/64 (74) 99 12/25/19 23:30 79 24 102/63 (76) 100 12/25/19 23:23 82 12/25/19 23:15 84 27 94/64 (74) 99 12/25/19 23:00 82 23 99/60 (73) 100 12/25/19 23:00 94/64 12/25/19 22:45 83 25 93/61 (72) 100 12/25/19 22:30 83 25 93/58 (70) 100 12/25/19 22:15 85 27 101/59 (73) 100 12/25/19 22:00 101/59 12/25/19 22:00 84 27 94/65 (75) 100 12/25/19 21:45 79 26 96/60 (72) 100 12/25/19 21:30 86 29 102/63 (76) 100 12/25/19 21:15 87 27 98/58 (71) 100 12/25/19 21:00 95/66 12/25/19 20:53 100.1 12/25/19 20:30 89 28 107/64 (78) 100 12/25/19 20:15 91 29 102/61 (75) 100 12/25/19 20:11 90 105/64 12/25/19 20:00 100.5 91 29 105/64 (78) 100 12/25/19 20:00 100 12/25/19 20:00 105/59 12/25/19 20:00 Bi-pap 12/25/19 19:54 100 Bi-Pap 100 12/25/19 19:54 92 33 100 100 12/25/19 19:45 91 30 123/64 (83) 100 12/25/19 19:39 92 12/25/19 19:30 92 31 108/62 (77) 100 12/25/19 19:15 91 32 112/63 (79) 100 12/25/19 19:00 112/63 12/25/19 19:00 90 33 108/65 (79) 100 12/25/19 18:30 92 28 114/65 (81) 12/25/19 18:00 111/67 12/25/19 18:00 86 22 113/67 (82) 12/25/19 17:30 87 27 119/64 (82) 12/25/19 17:00 85 32 133/85 (101) 94 12/25/19 17:00 133/85 12/25/19 16:30 82 27 99/64 (76) 95 12/25/19 16:02 107/60 12/25/19 16:00 Bi-pap 12/25/19 16:00 108/59 12/25/19 16:00 82 12/25/19 16:00 97.6 84 24 108/59 (75) 100 12/25/19 16:00 100 12/25/19 15:30 82 26 109/57 (74) 100 12/25/19 15:24 82 24 100 100 12/25/19 15:00 79 23 115/59 (77) 99 12/25/19 15:00 115/59 12/25/19 14:30 76 23 115/59 (77) 100 12/25/19 14:00 123/62 12/25/19 14:00 77 23 123/62 (82) 100 12/25/19 13:30 77 26 112/55 (74) 100 Intake and Output 12/25/19 12/26/19 19:00 07:00 Intake Total 1285 ml 1092.50 ml Balance 1285 ml 1092.50 ml IV Total 1285 ml 1032.50 ml Other 60 ml # Voids 585 725 Laboratory Tests 12/26/19 03:00: Urine Color Yellow, Urine Appearance Cloudy, Urine pH 5, Urine Specific [place] 1.015, Urine Protein 2+H, Urine Glucose (UA) Negative, Urine Ketones Negative, Urine Blood 3+H, Urine Nitrite Negative, Urine Bilirubin Negative, Urine Urobilinogen 4H, Urine Leukocyte Esterase 2+H, Urine RBC 5-10H, Urine WBC 5-10H , Urine Squamous Epithelial Cells Few, Urine Uric Acid Crystals ManyH, Urine Bacteria ManyH, Urine Yeast ManyH 12/26/19 05:17: White Blood Count 13.9H, Red Blood Count 3.39L, Hemoglobin 9.5L, Hematocrit 29.8L, Mean Corpuscular Volume 88, Mean Corpuscular Hemoglobin 28.0, Mean Corpuscular Hemoglobin Concent 31.9L, Red Cell Distribution Width 12.2, Platelet Count 181, Mean Platelet Volume 8.5, Neutrophils (%) (Auto) , Lymphocytes (%) (Auto) , Monocytes (%) (Auto) , Eosinophils (%) (Auto) , Basophils (%) (Auto) , Differential Total Cells Counted 100, Neutrophils % ( Manual) 84H, Lymphocytes % (Manual) 6L, Monocytes % (Manual) 7, Eosinophils % ( Manual) 2, Basophils % (Manual) 1, Band Neutrophils 0, Platelet Estimate Adequate, Platelet Morphology Normal, Hypochromasia 2+, Anisocytosis 1+, Sodium Level 146H, Potassium Level 5.2#H, Chloride Level 108H, Carbon Dioxide Level 30 , Anion Gap 8, Blood Urea Nitrogen 67H, Creatinine 2.1H, Estimat Glomerular Filtration Rate 37.9, Glucose Level 246#H, Calcium Level 9.1#, Phosphorus Level 2.9, Magnesium Level 2.7H, Total Bilirubin 0.7, Aspartate Amino Transf (AST/SGOT ) 26, Alanine Aminotransferase (ALT/SGPT) 22, Alkaline Phosphatase 88, Troponin I 0.008, Total Protein 7.0, Albumin 2.2L, Globulin 4.8, Albumin/Globulin Ratio 0.5L 12/26/19 10:18: Arterial Blood pH 7.407, Arterial Blood Partial Pressure CO2 51.2H, Arterial Blood Partial Pressure O2 57.0L, Arterial Blood HCO3 31.5H, Arterial Blood Oxygen Saturation 88.5*L, Arterial Blood Base Excess 5.9H, Devyn Test Positive 12/26/19 11:34: Activated Partial Thromboplast Time 38H Height (Feet): 5 Height (Inches): 8.00 Weight (Pounds): 173 General Appearance: lethargic EENT: normal ENT inspection Neck: normal alignment Cardiovascular: normal rate, regular rhythm Respiratory/Chest: no respiratory distress, no accessory muscle use Extremities: normal inspection Skin: normal pigmentation Tee Novoa DO December 26, 2019 13:27
--- NOTE | 2019-12-26 13:29 | NUR ---
NURSE NOTES: Ativan order was fell off. Talked with Dr. Adkins and okay to continue.
--- NOTE | 2019-12-26 13:42 | NUR ---
NURSE NOTES: Patient is restless and agitated. Ativan 1mg IV given as ordered.
[2019-12-26] MEDS ORDERED: LORazepam Inj 2mg/ml 1ml IV PRN (13:45)
--- NOTE | 2019-12-26 13:47 | Nephrology Progress Note ---
Assessment/Plan Problem List: (1) TRAE (acute kidney injury) (2) Electrolyte imbalance (3) Suspected COVID-19 virus infection (4) Hypotension Assessment: Resolved (5) Sepsis Assessment Patient's current problem from renal standpoint of view is hypokalemia and other electrolyte imbalances His other conditions: Patient presented with acute renal failure however it is now resolved Patient presented with septic shock was on pressors however now resolved Sepsis leukocytosis improving Patient has COVID-19 pneumonia Hypertension Cardiomyopathy status post AICD Previous CVA with right residual weakness Seizure disorders Plan COVID-19 positive December 14: Remains on BiPAP Remains in ICU Serum creatinine slightly higher Discuss with agent broker Continue per current management continue with slow hydration December 13: Patient now in ICU room J On BiPAP Discussed with RN Serum creatinine lower 1.9, Will recheck renal parameters and electrolytes and chemistries tomorrow Continue per consultants December 12: Patient is clinically deteriorating Respiratory status worsened Blood pressure low Serum creatinine peyman ABG indicative of CO2 retention Discussed with a agent broker Patient due transfer to monitored bed for initiation of BiPAP Meanwhile we will give albumin bolus and start half-normal saline IV hydration May require pressors Overall prognosis poor I favor holding the mind altering medications Per orders December 11: In view of worsening renal failure and rise of creatinine to 1.8 will temporarily hold Lasix and lisinopril Discussed with Dr. Francisco Continue rest Previously: Magnesium and potassium as needed Stable from renal standpoint of view Continue per consultants We will continue to monitor electrolytes and chemistries Subjective ROS Limited/Unobtainable: No Constitutional: Reports: malaise, weakness Objective Objective Last 24 Hour Vital Signs Date Time Temp Pulse Resp B/P (MAP) Pulse Ox O2 Delivery O2 Flow Rate FiO2 12/26/19 11:30 120 42 148/80 (102) 89 12/26/19 11:00 106 36 140/77 (98) 97 12/26/19 10:30 99 33 136/73 (94) 98 12/26/19 10:00 94 30 116/71 (86) 98 12/26/19 09:30 88 32 126/69 (88) 100 12/26/19 09:00 81 116/67 12/26/19 09:00 90 37 121/54 (76) 84 12/26/19 08:30 84 37 115/61 (79) 97 12/26/19 08:00 100 5/14/20 08:00 98.2 82 30 117/68 (84) 98 12/26/19 08:00 81 12/26/19 08:00 Bi-pap 12/26/19 07:30 79 24 111/73 (86) 99 12/26/19 07:00 116/67 12/26/19 07:00 81 28 116/67 (83) 99 12/26/19 06:45 82 30 118/70 (86) 99 12/26/19 06:30 84 35 118/66 (83) 97 12/26/19 06:15 84 33 117/69 (85) 98 12/26/19 06:00 84 31 106/69 (81) 98 12/26/19 06:00 106/56 12/26/19 05:45 86 36 115/69 (84) 98 12/26/19 05:30 84 32 118/67 (84) 97 12/26/19 05:15 85 35 122/72 (89) 100 12/26/19 05:00 122/72 12/26/19 05:00 83 32 126/67 (86) 98 12/26/19 04:45 80 30 121/70 (87) 99 12/26/19 04:30 81 34 120/67 (84) 98 12/26/19 04:15 84 40 133/67 (89) 86 12/26/19 04:00 133/67 12/26/19 04:00 Bi-pap 12/26/19 04:00 100 12/26/19 04:00 98.7 79 30 113/71 (85) 94 12/26/19 03:45 79 35 112/67 (82) 94 12/26/19 03:35 78 12/26/19 03:30 81 36 112/67 (82) 95 12/26/19 03:16 100 22 82 60 12/26/19 03:15 82 35 115/69 (84) 98 12/26/19 03:00 83 28 114/70 (85) 100 12/26/19 03:00 115/69 12/26/19 02:45 81 26 124/64 (84) 100 12/26/19 02:30 82 27 110/67 (81) 100 12/26/19 02:15 82 27 109/69 (82) 100 12/26/19 02:00 109/69 12/26/19 02:00 82 27 110/67 (81) 100 12/26/19 01:45 83 28 103/64 (77) 100 12/26/19 01:30 81 28 105/66 (79) 100 12/26/19 01:15 85 28 107/63 (78) 100 12/26/19 01:00 79 23 108/66 (80) 100 12/26/19 01:00 107/63 12/26/19 00:45 77 24 108/66 (80) 100 12/26/19 00:30 84 26 104/64 (77) 100 12/26/19 00:15 80 24 102/64 (77) 100 12/26/19 00:00 Bi-pap 12/26/19 00:00 99.8 81 24 107/61 (76) 100 12/26/19 00:00 102/64 12/25/19 23:51 100 22 79 100 12/25/19 23:45 85 30 95/64 (74) 99 12/25/19 23:30 79 24 102/63 (76) 100 12/25/19 23:23 82 12/25/19 23:15 84 27 94/64 (74) 99 12/25/19 23:00 82 23 99/60 (73) 100 12/25/19 23:00 94/64 12/25/19 22:45 83 25 93/61 (72) 100 12/25/19 22:30 83 25 93/58 (70) 100 12/25/19 22:15 85 27 101/59 (73) 100 12/25/19 22:00 101/59 12/25/19 22:00 84 27 94/65 (75) 100 12/25/19 21:45 79 26 96/60 (72) 100 12/25/19 21:30 86 29 102/63 (76) 100 12/25/19 21:15 87 27 98/58 (71) 100 12/25/19 21:00 95/66 12/25/19 20:53 100.1 12/25/19 20:30 89 28 107/64 (78) 100 12/25/19 20:15 91 29 102/61 (75) 100 12/25/19 20:11 90 105/64 12/25/19 20:00 100.5 91 29 105/64 (78) 100 12/25/19 20:00 100 12/25/19 20:00 105/59 12/25/19 20:00 Bi-pap 12/25/19 19:54 100 Bi-Pap 100 12/25/19 19:54 92 33 100 100 12/25/19 19:45 91 30 123/64 (83) 100 12/25/19 19:39 92 12/25/19 19:30 92 31 108/62 (77) 100 12/25/19 19:15 91 32 112/63 (79) 100 12/25/19 19:00 112/63 12/25/19 19:00 90 33 108/65 (79) 100 12/25/19 18:30 92 28 114/65 (81) 12/25/19 18:00 111/67 12/25/19 18:00 86 22 113/67 (82) 12/25/19 17:30 87 27 119/64 (82) 12/25/19 17:00 85 32 133/85 (101) 94 12/25/19 17:00 133/85 12/25/19 16:30 82 27 99/64 (76) 95 12/25/19 16:02 107/60 12/25/19 16:00 Bi-pap 12/25/19 16:00 108/59 12/25/19 16:00 82 12/25/19 16:00 97.6 84 24 108/59 (75) 100 12/25/19 16:00 100 12/25/19 15:30 82 26 109/57 (74) 100 12/25/19 15:24 82 24 100 100 12/25/19 15:00 79 23 115/59 (77) 99 12/25/19 15:00 115/59 12/25/19 14:30 76 23 115/59 (77) 100 12/25/19 14:00 123/62 12/25/19 14:00 77 23 123/62 (82) 100 Intake and Output 12/25/19 12/26/19 19:00 07:00 Intake Total 1285 ml 1092.50 ml Balance 1285 ml 1092.50 ml IV Total 1285 ml 1032.50 ml Other 60 ml # Voids 585 725 Laboratory Tests 12/26/19 03:00: Urine Color Yellow, Urine Appearance Cloudy, Urine pH 5, Urine Specific [place] 1.015, Urine Protein 2+H, Urine Glucose (UA) Negative, Urine Ketones Negative, Urine Blood 3+H, Urine Nitrite Negative, Urine Bilirubin Negative, Urine Urobilinogen 4H, Urine Leukocyte Esterase 2+H, Urine RBC 5-10H, Urine WBC 5-10H , Urine Squamous Epithelial Cells Few, Urine Uric Acid Crystals ManyH, Urine Bacteria ManyH, Urine Yeast ManyH 12/26/19 05:17: White Blood Count 13.9H, Red Blood Count 3.39L, Hemoglobin 9.5L, Hematocrit 29.8L, Mean Corpuscular Volume 88, Mean Corpuscular Hemoglobin 28.0, Mean Corpuscular Hemoglobin Concent 31.9L, Red Cell Distribution Width 12.2, Platelet Count 181, Mean Platelet Volume 8.5, Neutrophils (%) (Auto) , Lymphocytes (%) (Auto) , Monocytes (%) (Auto) , Eosinophils (%) (Auto) , Basophils (%) (Auto) , Differential Total Cells Counted 100, Neutrophils % ( Manual) 84H, Lymphocytes % (Manual) 6L, Monocytes % (Manual) 7, Eosinophils % ( Manual) 2, Basophils % (Manual) 1, Band Neutrophils 0, Platelet Estimate Adequate, Platelet Morphology Normal, Hypochromasia 2+, Anisocytosis 1+, Sodium Level 146H, Potassium Level 5.2#H, Chloride Level 108H, Carbon Dioxide Level 30 , Anion Gap 8, Blood Urea Nitrogen 67H, Creatinine 2.1H, Estimat Glomerular Filtration Rate 37.9, Glucose Level 246#H, Calcium Level 9.1#, Phosphorus Level 2.9, Magnesium Level 2.7H, Total Bilirubin 0.7, Aspartate Amino Transf (AST/SGOT ) 26, Alanine Aminotransferase (ALT/SGPT) 22, Alkaline Phosphatase 88, Troponin I 0.008, Total Protein 7.0, Albumin 2.2L, Globulin 4.8, Albumin/Globulin Ratio 0.5L 12/26/19 10:18: Arterial Blood pH 7.407, Arterial Blood Partial Pressure CO2 51.2H, Arterial Blood Partial Pressure O2 57.0L, Arterial Blood HCO3 31.5H, Arterial Blood Oxygen Saturation 88.5*L, Arterial Blood Base Excess 5.9H, Devyn Test Positive 12/26/19 11:34: Activated Partial Thromboplast Time 38H Height (Feet): 5 Height (Inches): 8.00 Weight (Pounds): 173 General Appearance: no apparent distress EENT: other - On BiPAP Cardiovascular: tachycardia Respiratory/Chest: decreased breath sounds Abdomen: distended Objective No change Ed Vega MD December 26, 2019 13:47
--- NOTE | 2019-12-26 14:27 | Cardiac Electrophysiology PN ---
Assessment/Plan Assessment/Plan 1. Septic Shock due to EF 40% and sepsis. BNP is 736. On Abx by Dr. Sanchez. Off Levophed today 2. CHF EF 40%. On Coreg 3.125 bid. 3. Status post right-sided MERT ICD. 4. Hypertension 5. History of CVA with residual weakness. 6. Respiratory failure due to COVID-19 PNA, on BIPAP Started on heparin drip 7. Hypernatremia. 8. Acute renal failure. Cr up from 0.9 to 2.8. Off Lasix and Lisinopril KOTA RN and Dr. Vega Subjective Subjective In Covid isolation in ICU Off levo 4 since 9 am. On BIPAP 26/12. Started on heparin drip Objective Last 24 Hour Vital Signs Date Time Temp Pulse Resp B/P (MAP) Pulse Ox O2 Delivery O2 Flow Rate FiO2 12/26/19 14:00 118 44 136/80 (98) 97 12/26/19 13:30 117 44 136/75 (95) 97 12/26/19 13:00 116 45 127/75 (92) 97 12/26/19 12:30 116 45 138/81 (100) 97 12/26/19 12:00 118 45 152/85 (107) 98 12/26/19 12:00 112 12/26/19 11:30 120 42 148/80 (102) 89 12/26/19 11:00 106 36 140/77 (98) 97 12/26/19 10:30 99 33 136/73 (94) 98 12/26/19 10:00 94 30 116/71 (86) 98 12/26/19 09:30 88 32 126/69 (88) 100 12/26/19 09:00 81 116/67 12/26/19 09:00 90 37 121/54 (76) 84 12/26/19 08:30 84 37 115/61 (79) 97 12/26/19 08:00 100 12/26/19 08:00 98.2 82 30 117/68 (84) 98 12/26/19 08:00 81 12/26/19 08:00 Bi-pap 12/26/19 07:30 79 24 111/73 (86) 99 12/26/19 07:00 116/67 12/26/19 07:00 81 28 116/67 (83) 99 12/26/19 06:45 82 30 118/70 (86) 99 12/26/19 06:30 84 35 118/66 (83) 97 12/26/19 06:15 84 33 117/69 (85) 98 12/26/19 06:00 84 31 106/69 (81) 98 12/26/19 06:00 106/56 12/26/19 05:45 86 36 115/69 (84) 98 12/26/19 05:30 84 32 118/67 (84) 97 12/26/19 05:15 85 35 122/72 (89) 100 12/26/19 05:00 122/72 12/26/19 05:00 83 32 126/67 (86) 98 12/26/19 04:45 80 30 121/70 (87) 99 12/26/19 04:30 81 34 120/67 (84) 98 12/26/19 04:15 84 40 133/67 (89) 86 12/26/19 04:00 133/67 12/26/19 04:00 Bi-pap 12/26/19 04:00 100 12/26/19 04:00 98.7 79 30 113/71 (85) 94 12/26/19 03:45 79 35 112/67 (82) 94 12/26/19 03:35 78 12/26/19 03:30 81 36 112/67 (82) 95 12/26/19 03:16 100 22 82 60 12/26/19 03:15 82 35 115/69 (84) 98 12/26/19 03:00 83 28 114/70 (85) 100 12/26/19 03:00 115/69 12/26/19 02:45 81 26 124/64 (84) 100 12/26/19 02:30 82 27 110/67 (81) 100 12/26/19 02:15 82 27 109/69 (82) 100 12/26/19 02:00 109/69 12/26/19 02:00 82 27 110/67 (81) 100 12/26/19 01:45 83 28 103/64 (77) 100 12/26/19 01:30 81 28 105/66 (79) 100 12/26/19 01:15 85 28 107/63 (78) 100 12/26/19 01:00 79 23 108/66 (80) 100 12/26/19 01:00 107/63 12/26/19 00:45 77 24 108/66 (80) 100 12/26/19 00:30 84 26 104/64 (77) 100 12/26/19 00:15 80 24 102/64 (77) 100 12/26/19 00:00 Bi-pap 12/26/19 00:00 99.8 81 24 107/61 (76) 100 12/26/19 00:00 102/64 12/25/19 23:51 100 22 79 100 12/25/19 23:45 85 30 95/64 (74) 99 12/25/19 23:30 79 24 102/63 (76) 100 12/25/19 23:23 82 12/25/19 23:15 84 27 94/64 (74) 99 12/25/19 23:00 82 23 99/60 (73) 100 12/25/19 23:00 94/64 12/25/19 22:45 83 25 93/61 (72) 100 12/25/19 22:30 83 25 93/58 (70) 100 12/25/19 22:15 85 27 101/59 (73) 100 12/25/19 22:00 101/59 12/25/19 22:00 84 27 94/65 (75) 100 12/25/19 21:45 79 26 96/60 (72) 100 12/25/19 21:30 86 29 102/63 (76) 100 12/25/19 21:15 87 27 98/58 (71) 100 12/25/19 21:00 95/66 12/25/19 20:53 100.1 12/25/19 20:30 89 28 107/64 (78) 100 12/25/19 20:15 91 29 102/61 (75) 100 12/25/19 20:11 90 105/64 12/25/19 20:00 100.5 91 29 105/64 (78) 100 12/25/19 20:00 100 12/25/19 20:00 105/59 12/25/19 20:00 Bi-pap 12/25/19 19:54 100 Bi-Pap 100 12/25/19 19:54 92 33 100 100 12/25/19 19:45 91 30 123/64 (83) 100 12/25/19 19:39 92 12/25/19 19:30 92 31 108/62 (77) 100 12/25/19 19:15 91 32 112/63 (79) 100 12/25/19 19:00 112/63 12/25/19 19:00 90 33 108/65 (79) 100 12/25/19 18:30 92 28 114/65 (81) 12/25/19 18:00 111/67 12/25/19 18:00 86 22 113/67 (82) 12/25/19 17:30 87 27 119/64 (82) 12/25/19 17:00 85 32 133/85 (101) 94 12/25/19 17:00 133/85 12/25/19 16:30 82 27 99/64 (76) 95 12/25/19 16:02 107/60 12/25/19 16:00 Bi-pap 12/25/19 16:00 108/59 12/25/19 16:00 82 12/25/19 16:00 97.6 84 24 108/59 (75) 100 12/25/19 16:00 100 12/25/19 15:30 82 26 109/57 (74) 100 12/25/19 15:24 82 24 100 100 12/25/19 15:00 79 23 115/59 (77) 99 12/25/19 15:00 115/59 12/25/19 14:30 76 23 115/59 (77) 100 Intake and Output 12/25/19 12/26/19 19:00 07:00 Intake Total 1285 ml 1092.50 ml Balance 1285 ml 1092.50 ml IV Total 1285 ml 1032.50 ml Other 60 ml # Voids 585 725 Laboratory Tests Test 12/26/19 03:00 12/26/19 05:17 12/26/19 10:18 12/26/19 11:34 Urine Color Yellow Urine Appearance Cloudy Urine pH 5 (4.5-8.0) Urine Specific [place] 1.015 (1.005-1.035) Urine Protein 2+ (NEGATIVE) H Urine Glucose (UA) Negative (NEGATIVE) Urine Ketones Negative (NEGATIVE) Urine Blood 3+ (NEGATIVE) H Urine Nitrite Negative (NEGATIVE) Urine Bilirubin Negative (NEGATIVE) Urine Urobilinogen 4 MG/DL (0.0-1.0) H Urine Leukocyte Esterase 2+ (NEGATIVE) H Urine RBC 5-10 /HPF (0 - 0) H Urine WBC 5-10 /HPF (0 - 0) H Urine Squamous Epithelial Cells Few /LPF (NONE/OCC) Urine Uric Acid Crystals Many /LPF (NONE) H Urine Bacteria Many /HPF (NONE) H Urine Yeast Many /HPF (NONE) H White Blood Count 13.9 K/UL (4.8-10.8) H Red Blood Count 3.39 M/UL (4.70-6.10) L Hemoglobin 9.5 G/DL (14.2-18.0) L Hematocrit 29.8 % (42.0-52.0) L Mean Corpuscular Volume 88 FL (80-99) Mean Corpuscular Hemoglobin 28.0 PG (27.0-31.0) Mean Corpuscular Hemoglobin Concent 31.9 G/DL (32.0-36.0) L Red Cell Distribution Width 12.2 % (11.6-14.8) Platelet Count 181 K/UL (150-450) Mean Platelet Volume 8.5 FL (6.5-10.1) Neutrophils (%) (Auto) % (45.0-75.0) Lymphocytes (%) (Auto) % (20.0-45.0) Monocytes (%) (Auto) % (1.0-10.0) Eosinophils (%) (Auto) % (0.0-3.0) Basophils (%) (Auto) % (0.0-2.0) Differential Total Cells Counted 100 Neutrophils % (Manual) 84 % (45-75) H Lymphocytes % (Manual) 6 % (20-45) L Monocytes % (Manual) 7 % (1-10) Eosinophils % (Manual) 2 % (0-3) Basophils % (Manual) 1 % (0-2) Band Neutrophils 0 % (0-8) Platelet Estimate Adequate Platelet Morphology Normal Hypochromasia 2+ Anisocytosis 1+ Sodium Level 146 MMOL/L (136-145) H Potassium Level 5.2 MMOL/L (3.5-5.1) #H Chloride Level 108 MMOL/L (98-107) H Carbon Dioxide Level 30 MMOL/L (21-32) Anion Gap 8 mmol/L (5-15) Blood Urea Nitrogen 67 mg/dL (7-18) H Creatinine 2.1 MG/DL (0.55-1.30) H Estimat Glomerular Filtration Rate 37.9 mL/min (>60) Glucose Level 246 MG/DL (74-106) #H Calcium Level 9.1 MG/DL (8.5-10.1) # Phosphorus Level 2.9 MG/DL (2.5-4.9) Magnesium Level 2.7 MG/DL (1.8-2.4) H Total Bilirubin 0.7 MG/DL (0.2-1.0) Aspartate Amino Transf (AST/SGOT) 26 U/L (15-37) Alanine Aminotransferase (ALT/SGPT) 22 U/L (12-78) Alkaline Phosphatase 88 U/L (46-116) Troponin I 0.008 ng/mL (0.000-0.056) Total Protein 7.0 G/DL (6.4-8.2) Albumin 2.2 G/DL (3.4-5.0) L Globulin 4.8 g/dL Albumin/Globulin Ratio 0.5 (1.0-2.7) L Arterial Blood pH 7.407 (7.350-7.450) Arterial Blood Partial Pressure CO2 51.2 mmHg (35.0-45.0) H Arterial Blood Partial Pressure O2 57.0 mmHg (75.0-100.0) L Arterial Blood HCO3 31.5 mmol/L (22.0-26.0) H Arterial Blood Oxygen Saturation 88.5 % (95-100) *L Arterial Blood Base Excess 5.9 (-2-2) H Devyn Test Positive Activated Partial Thromboplast Time 38 SEC (23-33) H Objective HEAD AND NECK: Mild JVD.BIPAP is on LUNGS: Decreased breath sounds and rhonchi CARDIOVASCULAR: Regular S1 and S2 with no gallop. ABDOMEN: Soft. EXTREMITIES: 1+ pitting edema. Defibrillator is in right subclavian. Shai Bullard MD December 26, 2019 14:27
--- NOTE | 2019-12-26 15:04 | NUR ---
NURSE NOTES: Bed bath given. Patient had small soft BM. Kept dry, clean and comfortable.
--- NOTE | 2019-12-26 16:33 | NUR ---
NURSE NOTES: Repositioned patient. kept dry, clean and comfortable.
[2019-12-26] MEDS: Acetaminophen 650mg/20.3ml NG PRN (18:23)
--- NOTE | 2019-12-26 18:30 | NUR ---
NURSE NOTES: Changed right femoral TLC dressing. Called lab for collecting blood for PTT, Kylee will come soon.
--- NOTE | 2019-12-26 19:07 | NUR ---
HAND-OFF: Report given to BARBARA Monreal. Endorsed plan of care.
--- NOTE | 2019-12-26 19:08 | NUR ---
NURSE NOTES: Received patient from BARBARA Hernandes. Will continue plan of care.
--- NOTE | 2019-12-26 20:00 | NUR ---
NURSE NOTES: Patient is resting and response to stimuli. On BiPAP 15/5 @100%, O2 saturation:99%. BP:99/54, HR:97, RESP:35, TEMP:98.7F axiillary. L NGT in place but NPO status at the moment. Mosqueda catheter in place and draining. Right femoral TLC running 1/2 NS @ 75ml/hr and Heparin @ 18units (28.25ml/hr). Awaiting PTT results from lab. Safety measures in place. Will continue plan of care.
[2019-12-26] MEDS: Dyna-Hex 2% Top Sol 2oz TOPIC SCH (20:40)
[2019-12-26] MEDS: Heparin 25,000u/D5W 500ml 500 ML IV SCH (21:41)
--- NOTE | 2019-12-26 22:00 | NUR ---
NURSE NOTES: Heparin drip held for an hour for PTT 148 per protocol. Restarted with a rate of 15units (23.541ml/hr). Current BP:93/54, HR:88. Levophed had been held this afternoon. Will continue to monitor. Patient continues to wake and respond to stimuli and voice.
[2019-12-27] VITALS (35 sets, daily range): BP systolic 99–139; BP diastolic 56–89
--- NOTE | 2019-12-27 | NUR ---
NURSE NOTES: No changes in patient condition. Heparin drip continues at 15units. 1/2 NS @ 75ml/hr. Blood sugar 190, 4 units Novolog given subQ.
--- NOTE | 2019-12-27 02:00 | NUR ---
NURSE NOTES: Bed bath given with amira-hex, linens changed, turned and repositioned. Patient is comfortable.
--- NOTE | 2019-12-27 04:00 | NUR ---
NURSE NOTES: Significant drop in hgb, ordered a re-draw. (occurred previously and hgb resulted within normal range)
[2019-12-27 04:16] LABS: HEMATOCRIT 20.3 % (42.0-52.0); MEAN CORPUSCULAR VOLUME 90 FL (80-99); PLATELET COUNT 90 K/UL (150-450); RED BLOOD COUNT 2.25 M/UL (4.70-6.10); RED CELL DISTRIBUTION WIDTH 13.4 % (11.6-14.8)
[2019-12-27 04:27] LABS: ANION GAP 7 mmol/L (5-15); BLOOD UREA NITROGEN 54 mg/dL (7-18); CALCIUM 8.7 MG/DL (8.5-10.1); CARBON DIOXIDE 33 MMOL/L (21-32); CHLORIDE 110 MMOL/L (98-107); CREATININE 1.7 MG/DL (0.55-1.30); POTASSIUM 4.1 MMOL/L (3.5-5.1); SODIUM 150 MMOL/L (136-145)
[2019-12-27 04:32] LABS: HEMOGLOBIN 6.3 G/DL (14.2-18.0)
[2019-12-27] MEDS: NovoLOG Insulin Flexpen SUBQ SCH ×3 (05:37→18:23)
--- NOTE | 2019-12-27 06:00 | NUR ---
NURSE NOTES: BP:128/75, HR:88, O2:98%. PTT resulted 73; no changes to rate and repeat PTT 5/16 AM per protocol.
--- NOTE | 2019-12-27 07:08 | NUR ---
RESPIRATORY NOTE: Received pt on Bipap 15/5-100%FiO2-back up rate 16, saturated at 90%. Pt is resting bed, labor/shallow breathing noted RR 43-45bpm. No redness or skin breakdown noted. New foam tapes applied on nose bridge, cheeks and chin. Adjusted the mask to release pressure. RN Janeth aware of labor breathing. Alarms are set and audible, Bipap is plugged into the red outlet, ambu bag is at bedside. Will continue to monitor.
--- NOTE | 2019-12-27 07:22 | NUR ---
HAND-OFF: Report given to BARBARA Fowler.
--- NOTE | 2019-12-27 08:00 | Consultation ---
DATE OF CONSULTATION: 12/26/2019 SUBJECTIVE: This is a 69-year-old male with altered mental status, hypertension, and sepsis. He has got decline in cognition below his baseline. That is why his attending physician has requested daily psychiatric consultation. This patient does have some mood lability, confusion, disorganized thought process, and decline in cognition below his baseline. He has COPD, diabetes, hypertension, seizure disorder, and decline in cognition below his baseline. MENTAL STATUS EXAMINATION: This is a 69-year-old male. Appearance is disheveled. Attitude, irritable and agitated. Affect, guarded and restricted. Intellect, poor. Mood, depressed and anxious. Motor activity, psychomotor agitation. Insight and judgment are poor. DIAGNOSIS: Major depressive disorder, mild, recurrent with psychotic features, rule out dementia with psychosis. PLAN: I am going to treat him with psychotropic medication regimen consisting of Ativan 1 every 6 hours p.r.n. anxiety and agitation. So, 00:56 I will renew his Ativan today, confused, has some psychomotor agitation, irritability. Twenty minutes of behavioral management provided. Chart was reviewed. Discussed with staff. Seen and assessed in ICU. Mirna Adkins M.D. DR: KENY JOB#: [id number] CC:
--- NOTE | 2019-12-27 08:00 | NUR ---
NURSE NOTES: LATE ENTRY: RECEIVED REPORT FROM ISRAEL Ann PT IN SEMI FOWLERS, LABORED BREATHS, TACHYPNEIC AT 38, SP02 SATING 93. BIPAP 15/5, 100%FI02. VS: 90, 134/68, DIMINISHED THROUGH OUT. PT. A/OX1, VERY DROWSY AND FATIGUED. NPO, RT NARES NGT. HYPOACTIVE BOWEL SOUNDS. PERKINS DRAINING OTIS URINE. NO BM AT THIS TIME. SKIN- SEE ASSESSMENT. RT FEMORAL TLC , WILL REMOVED TODAY. PICC CONSENT BY . FLUIDS 1/2 NS @75ML/HR, HEP DRIP AT 15U/HR. 98 TEMP. LFT ARM WRIST RESTRAINTS. RT PARALYSIS. BED LOCKED, IN LOW POSITION. AIRBORNE ISOLATION.
[2019-12-27 08:10] LABS: HEMATOCRIT 27.9 % (42.0-52.0); HEMOGLOBIN 9.1 G/DL (14.2-18.0); MEAN CORPUSCULAR VOLUME 87 FL (80-99); PLATELET COUNT 192 K/UL (150-450); RED BLOOD COUNT 3.23 M/UL (4.70-6.10); RED CELL DISTRIBUTION WIDTH 12.2 % (11.6-14.8); WHITE BLOOD COUNT 17.1 K/UL (4.8-10.8)
[2019-12-27] MEDS: Meropenem 1 GM in NS 55 ML IVPB SCH ×2 (08:52→20:49)
[2019-12-27] MEDS: levETIRAcetam 500mg/5ml Liquid NG SCH ×2 (08:52→20:49)
[2019-12-27 09:00] LABS: ALANINE AMINOTRANSFERASE 23 U/L (12-78); ALKALINE PHOSPHATASE 114 U/L (46-116); ASPARTATE AMINO TRANSFERASE 27 U/L (15-37); BILIRUBIN,DIRECT 0.2 MG/DL (0.0-0.3); BILIRUBIN,TOTAL 0.4 MG/DL (0.2-1.0); PHOSPHORUS 2.6 MG/DL (2.5-4.9)
--- NOTE | 2019-12-27 09:09 | NUR ---
RD ASSESSMENT & RECOMMENDATIONS SEE CARE ACTIVITY FOR COMPLETE ASSESSMENT DAILY ESTIMATED NEEDS: Needs based on Cardiac, DM, Pulmonary 70kg abw 25-30 kcals/kg 1272-4579 total kcals 1-1.5 g protein/kg 72-108 g total protein 20-25 mL/kg 3455-0836 total fluid mLs NUTRITION DIAGNOSIS: * Inadequate oral intake R/T poor appetite, clincal condition, respiratory status as evidenced by refusing most meals since adm, now on BIPAP. * Altered nutrition related lab values r/t clinical status, DM, dehydration as evidenced by elev BG (300, 224 -> 1762, 46), A1C 7.4, elev BUN/creat (67->54/2.8 ->1.7), febrile-> now afebrile, critically elevated pCO2 (68.0-> improved 55.0). CURRENT DIET:NPO- PT ON BIPAP PO DIET RECOMMENDATIONS: WHEN OFF BIPAP AND SAFE FOR PO -> liberalized Regular / texture per RIVET BUCKER ENTERAL NUTRITION RECOMMENDATIONS: WHEN OFF BIPAP -> Glucerna 1.5 @ 50ml/hr x 24 hrs to provide 1200ml, 1800kcal, 99g prot, 911ml free water * WHEN OFF BIPAP, initiate Glucerna 1.5 @ 10ml/hr x 6 hrs, advance 10ml q 4-6 hrs as tolerated to goal rate * HOB over 30 degrees/ water flush of 150ml q 6 hrs ----- PT AT HIGH RISK FOR REFEEDING SYNDROME, START TF LOW AND INCREASE SLOWLY, CHECK LYTES CLOSELY, REPLETE NEEDED PARENTERAL NUTRITION RECOMMENDATIONS: IF PT UNABLE TO WEAN FROM BIPAP, REC INITIATING PARENTERAL NUTRITION - PT IS 21 DAYS WITH 0 TO MINIMAL NUTRITION -> PROLONGED PO REFUSAL PRIOR TO NPO STATUS AND NOW NPO ADDITIONAL RECOMMENDATIONS: 1) Check A1C -> pt w/elev BG (300, 224); a1c 7.4 2) Monitor ability to feed: No/minimal intake x 21 days, pt now on BIPAP -> rec PARENTERAL NUTRITION if unable to wean from BIPAP 3) Obtain a calibrated bedscale wt 4) Monitor renal fxn- now improving 5) rec adjusting IVF: on 1/2NS, Na trending up 6) Monitor lytes, replete as needed
[2019-12-27] MEDS: Heparin 25,000u/D5W 500ml 500 ML IV SCH (09:14)
--- NOTE | 2019-12-27 09:51 | General Progress Note ---
Assessment/Plan Problem List: (1) Suspected COVID-19 virus infection ICD Codes: Z20.828 - Contact with and (suspected) exposure to other viral communicable diseases SNOMED: 942644657 (2) Anemia ICD Codes: D64.9 - Anemia, unspecified SNOMED: 340100535 (3) Weak ICD Codes: R53.1 - Weakness SNOMED: 18534578 (4) COPD (chronic obstructive pulmonary disease) ICD Codes: J44.9 - Chronic obstructive pulmonary disease, unspecified SNOMED: 85446930 (5) Diabetes ICD Codes: E11.9 - Type 2 diabetes mellitus without complications SNOMED: 83755241 (6) Epileptic seizure, generalized ICD Codes: G40.309 - Generalized idiopathic epilepsy and epileptic syndromes, not intractable, without status epilepticus SNOMED: 42724519 (7) Altered mental status ICD Codes: R41.82 - Altered mental status, unspecified SNOMED: 252848156 Qualifiers: Qualified Codes: R41.82 - Altered mental status, unspecified (8) Hypotension ICD Codes: I95.9 - Hypotension, unspecified SNOMED: 89387272 Qualifiers: Qualified Codes: I95.9 - Hypotension, unspecified (9) UTI (urinary tract infection) ICD Codes: N39.0 - Urinary tract infection, site not specified SNOMED: 79406946 Status: unchanged Assessment/Plan: o2 pulm tx abx pt diet cbc bmp am needs picc, per nurse no family members and pt require picc line for treatment, ltach eval Subjective Constitutional: Reports: weakness Allergies: Coded Allergies: No Known Allergies (Unverified , 07/28/14) All Systems: reviewed and negative except above Subjective bipap sleepy in icu Objective Last 24 Hour Vital Signs Date Time Temp Pulse Resp B/P (MAP) Pulse Ox O2 Delivery O2 Flow Rate FiO2 12/27/19 08:53 92 131/70 12/27/19 07:08 90 Bi-Pap 100 12/27/19 07:08 101 44 90 100 12/27/19 07:00 93 40 126/89 (101) 96 12/27/19 06:30 90 36 128/75 (92) 96 12/27/19 06:00 96 41 134/74 (94) 97 12/27/19 05:30 87 40 119/64 (82) 99 12/27/19 05:00 90 40 121/70 (87) 97 12/27/19 04:30 82 38 112/67 (82) 95 12/27/19 04:00 Bi-pap 12/27/19 04:00 98.9 78 36 127/57 (80) 90 12/27/19 04:00 100 12/27/19 03:32 85 12/27/19 03:00 87 41 113/66 (82) 94 12/27/19 02:35 81 32 99 100 12/27/19 02:30 90 36 129/79 (96) 99 12/27/19 02:00 92 36 124/61 (82) 100 12/27/19 01:30 85 36 119/70 (86) 100 12/27/19 01:00 81 35 99/56 (70) 99 12/27/19 00:30 83 36 119/61 (80) 99 12/27/19 00:00 Bi-pap 12/27/19 00:00 98.3 89 34 117/77 (90) 97 12/27/19 00:00 100 12/26/19 23:30 85 37 106/66 (79) 100 12/26/19 23:29 86 12/26/19 23:10 86 31 100 100 12/26/19 23:00 87 37 101/51 (68) 100 12/26/19 22:30 85 34 96/50 (65) 100 12/26/19 22:00 87 31 93/54 (67) 100 12/26/19 21:30 90 34 112/49 (70) 100 12/26/19 21:00 93 34 103/51 (68) 100 12/26/19 20:30 96 37 98/60 (73) 99 12/26/19 20:09 99 99/54 12/26/19 20:01 98 36 99/54 (69) 100 12/26/19 20:00 Bi-pap 12/26/19 20:00 100 12/26/19 20:00 98.7 96 34 79/52 (61) 100 12/26/19 19:31 101 12/26/19 19:30 101 37 92/51 (65) 98 12/26/19 19:15 100 Bi-Pap 100 12/26/19 19:15 106 36 94 100 12/26/19 19:00 108 40 101/61 (74) 96 12/26/19 18:00 109 45 111/64 (80) 95 12/26/19 17:00 Bi-pap 12/26/19 17:00 114 44 125/76 (92) 95 12/26/19 16:00 Bi-pap 12/26/19 16:00 100 12/26/19 16:00 113 44 118/69 (85) 97 12/26/19 16:00 113 12/26/19 16:00 99.6 113 44 118/69 (85) 97 12/26/19 15:15 115 44 95 95 12/26/19 15:00 118 40 112/67 (82) 95 12/26/19 14:00 118 44 136/80 (98) 97 12/26/19 13:30 117 44 136/75 (95) 97 12/26/19 13:00 116 45 127/75 (92) 97 12/26/19 12:41 117 46 100 100 12/26/19 12:30 116 45 138/81 (100) 97 12/26/19 12:00 118 45 152/85 (107) 98 12/26/19 12:00 100 12/26/19 12:00 112 12/26/19 12:00 Bi-pap 12/26/19 11:30 120 42 148/80 (102) 89 12/26/19 11:00 106 36 140/77 (98) 97 12/26/19 10:30 99 33 136/73 (94) 98 12/26/19 10:00 94 30 116/71 (86) 98 Intake and Output 12/26/19 12/27/19 19:00 07:00 Intake Total 1144.67 ml 1128.0736 ml Balance 1144.67 ml 1128.0736 ml IV Total 1144.67 ml 1128.0736 ml # Voids 665 600 # Bowel Movements 4 2 Laboratory Tests 12/26/19 10:18: Arterial Blood pH 7.407, Arterial Blood Partial Pressure CO2 51.2H, Arterial Blood Partial Pressure O2 57.0L, Arterial Blood HCO3 31.5H, Arterial Blood Oxygen Saturation 88.5*L, Arterial Blood Base Excess 5.9H, Devyn Test Positive 12/26/19 11:34: Activated Partial Thromboplast Time 38H 12/26/19 19:45: Activated Partial Thromboplast Time 148H 12/27/19 03:35: Activated Partial Thromboplast Time 73H, White Blood Count 8.0, Red Blood Count 2.25L, Hemoglobin 6.3#*L, Hematocrit 20.3#L, Mean Corpuscular Volume 90, Mean Corpuscular Hemoglobin 28.0, Mean Corpuscular Hemoglobin Concent 31.0L, Red Cell Distribution Width 13.4, Platelet Count 90#L, Mean Platelet Volume 6.3L, Neutrophils (%) (Auto) , Lymphocytes (%) (Auto) , Monocytes (%) (Auto) , Eosinophils (%) (Auto) , Basophils (%) (Auto) , Differential Total Cells Counted 100, Neutrophils % (Manual) 86H, Lymphocytes % (Manual) 9L, Monocytes % (Manual) 3, Eosinophils % (Manual) 1, Basophils % (Manual) 0, Band Neutrophils 1 , Nucleated Red Blood Cells , Platelet Estimate DecreasedL, Platelet Morphology Normal, Hypochromasia 1+, Sodium Level 150H, Potassium Level 4.1, Chloride Level 110H, Carbon Dioxide Level 33H, Anion Gap 7, Blood Urea Nitrogen 54H, Creatinine 1.7H, Estimat Glomerular Filtration Rate 48.4, Glucose Level 176H, Calcium Level 8.7, Phosphorus Level 2.6, Magnesium Level 2.5H, Total Bilirubin 0.4, Direct Bilirubin 0.2, Aspartate Amino Transf (AST/SGOT) 27, Alanine Aminotransferase (ALT/SGPT) 23, Alkaline Phosphatase 114, Total Protein 6.7, Albumin 2.0L 12/27/19 07:00: White Blood Count 17.1#H, Red Blood Count 3.23L, Hemoglobin 9.1#L, Hematocrit 27.9#L, Mean Corpuscular Volume 87, Mean Corpuscular Hemoglobin 28.1, Mean Corpuscular Hemoglobin Concent 32.5, Red Cell Distribution Width 12.2, Platelet Count 192#, Mean Platelet Volume 7.1, Neutrophils (%) (Auto) , Lymphocytes (%) ( Auto) , Monocytes (%) (Auto) , Eosinophils (%) (Auto) , Basophils (%) (Auto) , Neutrophils % (Manual) [Pending], Lymphocytes % (Manual) [Pending], Platelet Estimate [Pending], Platelet Morphology [Pending] 12/27/19 07:45: Arterial Blood pH 7.372, Arterial Blood Partial Pressure CO2 55.0H, Arterial Blood Partial Pressure O2 59.3L, Arterial Blood HCO3 31.2H, Arterial Blood Oxygen Saturation 88.0*L, Arterial Blood Base Excess 5.0H, Devyn Test Positive Height (Feet): 5 Height (Inches): 8.00 Weight (Pounds): 173 General Appearance: lethargic EENT: normal ENT inspection Neck: normal alignment Cardiovascular: normal rate, regular rhythm Respiratory/Chest: no respiratory distress, no accessory muscle use Extremities: normal inspection Skin: normal pigmentation Tee Novoa DO December 27, 2019 09:51
--- NOTE | 2019-12-27 11:07 | NUR ---
NURSE NOTES:WOUND CARE NOTES:Pt presents with non-blanching erythema with multiple scattered partial thickness shearing sacrum,R and L buttocks. Scattered areas of hyperpigmentation from previous wounds also noted. Tx.Plan:Apply Moisture Barrier Paste to Buttocks and Sacral areas. Cover Sacrum with Optifoam drsg.Change every 3 days and PRN. Apply Cavilon Skin Barrier to Both heels. Cover each heel with Optifoam drsg. Change every 7 days and prn. Reposition at least every 2hours or as tolerated. Place pillow between knees. Off-load heels with pillow
--- NOTE | 2019-12-27 11:12 | Infectious Diseases Prog Note ---
Assessment/Plan Assessment/Plan Assessment: Septic shock-recurrent- off pressors now Fever;improving Leukocytosis, fluctuating; increased -12/25 uA wbc 5-10, nit neg, leuk +2; ucx yeast sp -12/14 u/a wbc 15-20, nit neg, leuk +1 Bcx Neg -u/a neg -Bcx Neg Probable PNA- 2ry to COVID19 (from [place] with confirmed cases) Acute hypoxic respiratory failure- was on NC, now on NRB- increasing FIo2 requiremetns -12/22 CXR: Minimally improved left, unchanged right infiltrates, since prior exam of 3 days earlier -12/19 CXR: Unchanged bilateral infiltrates, likely pneumonia, since prior exam of 3 days earlier. -12/16 CXR: Bilateral interstitial and airspace infiltrates are again demonstrated.Appearance is overall unchanged. There may be a small left pleural effusion,unchange -12/15 CRP 41.6, ferritin 1468 -12/14 CXR: . Worsening bilateral interstitial and airspace opacities. Probable small left pleural effusion. Difficult to evaluate the right costophrenic angle due to overlying pacemaker. 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 seizure disorder [place] [facility] Plan: -Cont empiric IV Meropenem #3 and add IV Vancomycin and Micafungin given recurrent leukocytosis -Consider steroids -12/21 SP IV Vancomycin #5 -12/18 SP Zosyn #5 - SPSolumedrol 40mg IV 12hrs (12/15-12/17); dc'ed by account liaison - (day 10 of illness and worsening; around this time is seen the worsening of COVID19 pts mainly driven by inflammatory response) -12/10 SP Cefepime #6 -12/08 SP IV Vancomycin #4 -f/u cx -Monitor CBC/CMP, temperatures -COVID 19 precautions -clarify goals of care -aspiration precautions -inflammatory markers -f/u cx -monitor CXR -f/u Bcx x2, sp cx Thank you for consulting [facility]. Will continue to follow along with you. Discussed with RN, Subjective Allergies: Coded Allergies: No Known Allergies (Unverified , 07/28/14) Subjective afebrile in ~36hrs remains on BIpap at 100% wbc increased Objective Vital Signs Last 24 Hour Vital Signs Date Time Temp Pulse Resp B/P (MAP) Pulse Ox O2 Delivery O2 Flow Rate FiO2 12/27/19 08:53 92 131/70 12/27/19 08:00 100 12/27/19 07:08 90 Bi-Pap 100 12/27/19 07:08 101 44 90 100 12/27/19 07:00 93 40 126/89 (101) 96 12/27/19 06:30 90 36 128/75 (92) 96 12/27/19 06:00 96 41 134/74 (94) 97 12/27/19 05:30 87 40 119/64 (82) 99 12/27/19 05:00 90 40 121/70 (87) 97 12/27/19 04:30 82 38 112/67 (82) 95 12/27/19 04:00 Bi-pap 12/27/19 04:00 98.9 78 36 127/57 (80) 90 12/27/19 04:00 100 12/27/19 03:32 85 12/27/19 03:00 87 41 113/66 (82) 94 12/27/19 02:35 81 32 99 100 12/27/19 02:30 90 36 129/79 (96) 99 12/27/19 02:00 92 36 124/61 (82) 100 12/27/19 01:30 85 36 119/70 (86) 100 12/27/19 01:00 81 35 99/56 (70) 99 12/27/19 00:30 83 36 119/61 (80) 99 12/27/19 00:00 Bi-pap 12/27/19 00:00 98.3 89 34 117/77 (90) 97 12/27/19 00:00 100 12/26/19 23:30 85 37 106/66 (79) 100 12/26/19 23:29 86 12/26/19 23:10 86 31 100 100 5/14/20 23:00 87 37 101/51 (68) 100 12/26/19 22:30 85 34 96/50 (65) 100 12/26/19 22:00 87 31 93/54 (67) 100 12/26/19 21:30 90 34 112/49 (70) 100 12/26/19 21:00 93 34 103/51 (68) 100 12/26/19 20:30 96 37 98/60 (73) 99 12/26/19 20:09 99 99/54 12/26/19 20:01 98 36 99/54 (69) 100 12/26/19 20:00 Bi-pap 12/26/19 20:00 100 12/26/19 20:00 98.7 96 34 79/52 (61) 100 12/26/19 19:31 101 12/26/19 19:30 101 37 92/51 (65) 98 12/26/19 19:15 100 Bi-Pap 100 12/26/19 19:15 106 36 94 100 12/26/19 19:00 108 40 101/61 (74) 96 12/26/19 18:00 109 45 111/64 (80) 95 12/26/19 17:00 Bi-pap 12/26/19 17:00 114 44 125/76 (92) 95 12/26/19 16:00 Bi-pap 12/26/19 16:00 100 12/26/19 16:00 113 44 118/69 (85) 97 12/26/19 16:00 113 12/26/19 16:00 99.6 113 44 118/69 (85) 97 12/26/19 15:15 115 44 95 95 12/26/19 15:00 118 40 112/67 (82) 95 12/26/19 14:00 118 44 136/80 (98) 97 12/26/19 13:30 117 44 136/75 (95) 97 12/26/19 13:00 116 45 127/75 (92) 97 12/26/19 12:41 117 46 100 100 12/26/19 12:30 116 45 138/81 (100) 97 12/26/19 12:00 118 45 152/85 (107) 98 12/26/19 12:00 100 12/26/19 12:00 112 12/26/19 12:00 Bi-pap 12/26/19 11:30 120 42 148/80 (102) 89 Height (Feet): 5 Height (Inches): 8.00 Weight (Pounds): 173 Objective not examined to limit COVID19 exposure Microbiology Date/Time Source Procedure Growth Status 12/26/19 03:00 Urine,Clean Catch Urine Culture - Preliminary Yeast Species Resulted Laboratory Tests Test 12/26/19 11:34 12/26/19 19:45 12/27/19 03:35 12/27/19 07:00 Activated Partial Thromboplast Time 38 SEC (23-33) H 148 SEC (23-33) H 73 SEC (23-33) H White Blood Count 8.0 K/UL (4.8-10.8) 17.1 K/UL (4.8-10.8) #H Red Blood Count 2.25 M/UL (4.70-6.10) L 3.23 M/UL (4.70-6.10) L Hemoglobin 6.3 G/DL (14.2-18.0) 9.1 G/DL (14.2-18.0) #L Hematocrit 20.3 % (42.0-52.0) #L 27.9 % (42.0-52.0) #L Mean Corpuscular Volume 90 FL (80-99) 87 FL (80-99) Mean Corpuscular Hemoglobin 28.0 PG (27.0-31.0) 28.1 PG (27.0-31.0) Mean Corpuscular Hemoglobin Concent 31.0 G/DL (32.0-36.0) L 32.5 G/DL (32.0-36.0) Red Cell Distribution Width 13.4 % (11.6-14.8) 12.2 % (11.6-14.8) Platelet Count 90 K/UL (150-450) #L 192 K/UL (150-450) # Mean Platelet Volume 6.3 FL (6.5-10.1) L 7.1 FL (6.5-10.1) Neutrophils (%) (Auto) % (45.0-75.0) % (45.0-75.0) Lymphocytes (%) (Auto) % (20.0-45.0) % (20.0-45.0) Monocytes (%) (Auto) % (1.0-10.0) % (1.0-10.0) Eosinophils (%) (Auto) % (0.0-3.0) % (0.0-3.0) Basophils (%) (Auto) % (0.0-2.0) % (0.0-2.0) Differential Total Cells Counted 100 100 Neutrophils % (Manual) 86 % (45-75) H 87 % (45-75) H Lymphocytes % (Manual) 9 % (20-45) L 8 % (20-45) L Monocytes % (Manual) 3 % (1-10) 4 % (1-10) Eosinophils % (Manual) 1 % (0-3) 1 % (0-3) Basophils % (Manual) 0 % (0-2) 0 % (0-2) Band Neutrophils 1 % (0-8) 0 % (0-8) Nucleated Red Blood Cells /100 WBC Platelet Estimate Decreased L Adequate Platelet Morphology Normal Normal Hypochromasia 1+ 1+ Sodium Level 150 MMOL/L (136-145) H Potassium Level 4.1 MMOL/L (3.5-5.1) Chloride Level 110 MMOL/L (98-107) H Carbon Dioxide Level 33 MMOL/L (21-32) H Anion Gap 7 mmol/L (5-15) Blood Urea Nitrogen 54 mg/dL (7-18) H Creatinine 1.7 MG/DL (0.55-1.30) H Estimat Glomerular Filtration Rate 48.4 mL/min (>60) Glucose Level 176 MG/DL (74-106) H Calcium Level 8.7 MG/DL (8.5-10.1) Phosphorus Level 2.6 MG/DL (2.5-4.9) Magnesium Level 2.5 MG/DL (1.8-2.4) H Total Bilirubin 0.4 MG/DL (0.2-1.0) Direct Bilirubin 0.2 MG/DL (0.0-0.3) Aspartate Amino Transf (AST/SGOT) 27 U/L (15-37) Alanine Aminotransferase (ALT/SGPT) 23 U/L (12-78) Alkaline Phosphatase 114 U/L (46-116) Total Protein 6.7 G/DL (6.4-8.2) Albumin 2.0 G/DL (3.4-5.0) L Test 12/27/19 07:45 Arterial Blood pH 7.372 (7.350-7.450) Arterial Blood Partial Pressure CO2 55.0 mmHg (35.0-45.0) H Arterial Blood Partial Pressure O2 59.3 mmHg (75.0-100.0) L Arterial Blood HCO3 31.2 mmol/L (22.0-26.0) H Arterial Blood Oxygen Saturation 88.0 % (95-100) *L Arterial Blood Base Excess 5.0 (-2-2) H Devyn Test Positive Current Medications Medications (Trade) Dose Ordered Sig/Wiley Route PRN Reason Start Time Stop Time Status Last Admin Dose Admin Acetaminophen (Tylenol) 650 mg Q6H PRN NG Mild Pain (Pain Scale 1-3) 12/26/19 17:00 01/25/20 16:59 12/26/19 18:23 Carvedilol (Coreg) 3.125 mg EVERY 12 HOURS NG 12/26/19 21:00 01/10/20 20:59 12/27/19 08:53 Chlorhexidine Gluconate (Milagro-Hex 2%) 1 applic DAILY@2000 TOPIC 12/25/19 20:00 03/24/20 19:59 12/26/19 20:40 Dextrose (Dextrose 50%) 25 ml Q30M PRN IV Hypoglycemia 12/24/19 13:45 03/23/20 13:44 Dextrose (Dextrose 50%) 50 ml Q30M PRN IV Hypoglycemia 12/24/19 13:45 03/23/20 13:44 Heparin Sodium/ Dextrose 500 ml @ 23.541 mls/ hr ADJUST PER PROTOCOL IV 12/26/19 21:30 01/25/20 21:29 12/27/19 09:14 Insulin Aspart (NovoLOG) Q6HR SUBQ 12/24/19 18:00 03/23/20 17:59 12/27/19 05:37 Levetiracetam (Keppra) 1,000 mg Q12HR NG 12/26/19 09:00 01/25/20 08:59 12/27/19 08:52 Lorazepam (Ativan 2mg/ml 1ml) 1 mg Q6H PRN IV For Anxiety 12/26/19 13:45 01/02/20 13:44 12/26/19 13:42 Meropenem 1 gm/ Sodium Chloride 55 ml @ 110 mls/hr Q12HR IVPB 12/25/19 14:00 12/30/19 13:59 12/27/19 08:52 Norepinephrine Bitartrate 4 mg/ Dextrose 250 ml @ 0 mls/hr Q24H PRN IV For hypotension 12/24/19 19:00 01/23/20 18:59 12/25/19 16:02 Sodium Chloride 1,000 ml @ 75 mls/hr [id number] IV 12/24/19 13:15 01/23/20 09:29 12/27/19 05:37 Sujatha Sanchez M.D. December 27, 2019 11:12
--- NOTE | 2019-12-27 11:50 | Nephrology Progress Note ---
Assessment/Plan Problem List: (1) TRAE (acute kidney injury) (2) Electrolyte imbalance (3) Suspected COVID-19 virus infection (4) Hypotension Assessment: Resolved (5) Sepsis Assessment Patient's current problem from renal standpoint of view is hypokalemia and other electrolyte imbalances His other conditions: Patient presented with acute renal failure however it is now resolved Patient presented with septic shock was on pressors however now resolved Sepsis leukocytosis improving Patient has COVID-19 pneumonia Hypertension Cardiomyopathy status post AICD Previous CVA with right residual weakness Seizure disorders Plan COVID-19 positive December 26 Remains on BiPAP Creatinine down to 1.7 Not much to add from renal standpoint of view December 25: Remains on BiPAP Remains in ICU Serum creatinine slightly higher Discuss with bag liner Continue per current management continue with slow hydration December 24: Patient now in ICU room J On BiPAP Discussed with RN Serum creatinine lower 1.9, Will recheck renal parameters and electrolytes and chemistries tomorrow Continue per consultants December 23: Patient is clinically deteriorating Respiratory status worsened Blood pressure low Serum creatinine peyman ABG indicative of CO2 retention Discussed with a bag liner Patient due transfer to monitored bed for initiation of BiPAP Meanwhile we will give albumin bolus and start half-normal saline IV hydration May require pressors Overall prognosis poor I favor holding the mind altering medications Per orders December 11: In view of worsening renal failure and rise of creatinine to 1.8 will temporarily hold Lasix and lisinopril Discussed with Dr. Francisco Continue rest Previously: Magnesium and potassium as needed Stable from renal standpoint of view Continue per consultants We will continue to monitor electrolytes and chemistries Subjective ROS Limited/Unobtainable: Yes Objective Objective Last 24 Hour Vital Signs Date Time Temp Pulse Resp B/P (MAP) Pulse Ox O2 Delivery O2 Flow Rate FiO2 12/27/19 11:30 86 43 119/74 (89) 95 12/27/19 11:12 91 43 94 100 12/27/19 11:00 87 38 121/68 (85) 95 12/27/19 10:30 90 39 118/73 (88) 96 12/27/19 10:00 88 36 125/79 (94) 97 12/27/19 09:30 91 40 126/77 (93) 93 12/27/19 09:00 90 39 136/69 (91) 92 12/27/19 08:53 92 131/70 12/27/19 08:30 90 38 131/70 (90) 93 12/27/19 08:00 100 12/27/19 08:00 98.8 94 43 134/68 (90) 92 12/27/19 07:08 90 Bi-Pap 100 12/27/19 07:08 101 44 90 100 12/27/19 07:00 93 40 126/89 (101) 96 12/27/19 06:30 90 36 128/75 (92) 96 12/27/19 06:00 96 41 134/74 (94) 97 12/27/19 05:30 87 40 119/64 (82) 99 12/27/19 05:00 90 40 121/70 (87) 97 12/27/19 04:30 82 38 112/67 (82) 95 12/27/19 04:00 Bi-pap 12/27/19 04:00 98.9 78 36 127/57 (80) 90 12/27/19 04:00 100 12/27/19 03:32 85 12/27/19 03:00 87 41 113/66 (82) 94 12/27/19 02:35 81 32 99 100 12/27/19 02:30 90 36 129/79 (96) 99 12/27/19 02:00 92 36 124/61 (82) 100 12/27/19 01:30 85 36 119/70 (86) 100 12/27/19 01:00 81 35 99/56 (70) 99 12/27/19 00:30 83 36 119/61 (80) 99 12/27/19 00:00 Bi-pap 12/27/19 00:00 98.3 89 34 117/77 (90) 97 12/27/19 00:00 100 12/26/19 23:30 85 37 106/66 (79) 100 12/26/19 23:29 86 12/26/19 23:10 86 31 100 100 12/26/19 23:00 87 37 101/51 (68) 100 12/26/19 22:30 85 34 96/50 (65) 100 12/26/19 22:00 87 31 93/54 (67) 100 12/26/19 21:30 90 34 112/49 (70) 100 12/26/19 21:00 93 34 103/51 (68) 100 12/26/19 20:30 96 37 98/60 (73) 99 12/26/19 20:09 99 99/54 12/26/19 20:01 98 36 99/54 (69) 100 12/26/19 20:00 Bi-pap 12/26/19 20:00 100 12/26/19 20:00 98.7 96 34 79/52 (61) 100 12/26/19 19:31 101 12/26/19 19:30 101 37 92/51 (65) 98 12/26/19 19:15 100 Bi-Pap 100 12/26/19 19:15 106 36 94 100 12/26/19 19:00 108 40 101/61 (74) 96 12/26/19 18:00 109 45 111/64 (80) 95 12/26/19 17:00 Bi-pap 12/26/19 17:00 114 44 125/76 (92) 95 12/26/19 16:00 Bi-pap 12/26/19 16:00 100 12/26/19 16:00 113 44 118/69 (85) 97 12/26/19 16:00 113 12/26/19 16:00 99.6 113 44 118/69 (85) 97 12/26/19 15:15 115 44 95 95 12/26/19 15:00 118 40 112/67 (82) 95 12/26/19 14:00 118 44 136/80 (98) 97 12/26/19 13:30 117 44 136/75 (95) 97 12/26/19 13:00 116 45 127/75 (92) 97 12/26/19 12:41 117 46 100 100 12/26/19 12:30 116 45 138/81 (100) 97 12/26/19 12:00 118 45 152/85 (107) 98 12/26/19 12:00 100 12/26/19 12:00 112 12/26/19 12:00 Bi-pap Intake and Output 12/26/19 12/27/19 19:00 07:00 Intake Total 1144.67 ml 1128.0736 ml Balance 1144.67 ml 1128.0736 ml IV Total 1144.67 ml 1128.0736 ml # Voids 665 600 # Bowel Movements 4 2 Laboratory Tests 12/26/19 19:45: Activated Partial Thromboplast Time 148H 12/27/19 03:35: Activated Partial Thromboplast Time 73H, White Blood Count 8.0, Red Blood Count 2.25L, Hemoglobin 6.3#*L, Hematocrit 20.3#L, Mean Corpuscular Volume 90, Mean Corpuscular Hemoglobin 28.0, Mean Corpuscular Hemoglobin Concent 31.0L, Red Cell Distribution Width 13.4, Platelet Count 90#L, Mean Platelet Volume 6.3L, Neutrophils (%) (Auto) , Lymphocytes (%) (Auto) , Monocytes (%) (Auto) , Eosinophils (%) (Auto) , Basophils (%) (Auto) , Differential Total Cells Counted 100, Neutrophils % (Manual) 86H, Lymphocytes % (Manual) 9L, Monocytes % (Manual) 3, Eosinophils % (Manual) 1, Basophils % (Manual) 0, Band Neutrophils 1 , Nucleated Red Blood Cells , Platelet Estimate DecreasedL, Platelet Morphology Normal, Hypochromasia 1+, Sodium Level 150H, Potassium Level 4.1, Chloride Level 110H, Carbon Dioxide Level 33H, Anion Gap 7, Blood Urea Nitrogen 54H, Creatinine 1.7H, Estimat Glomerular Filtration Rate 48.4, Glucose Level 176H, Calcium Level 8.7, Phosphorus Level 2.6, Magnesium Level 2.5H, Total Bilirubin 0.4, Direct Bilirubin 0.2, Aspartate Amino Transf (AST/SGOT) 27, Alanine Aminotransferase (ALT/SGPT) 23, Alkaline Phosphatase 114, Total Protein 6.7, Albumin 2.0L 12/27/19 07:00: White Blood Count 17.1#H, Red Blood Count 3.23L, Hemoglobin 9.1#L, Hematocrit 27.9#L, Mean Corpuscular Volume 87, Mean Corpuscular Hemoglobin 28.1, Mean Corpuscular Hemoglobin Concent 32.5, Red Cell Distribution Width 12.2, Platelet Count 192#, Mean Platelet Volume 7.1, Neutrophils (%) (Auto) , Lymphocytes (%) ( Auto) , Monocytes (%) (Auto) , Eosinophils (%) (Auto) , Basophils (%) (Auto) , Differential Total Cells Counted 100, Neutrophils % (Manual) 87H, Lymphocytes % (Manual) 8L, Monocytes % (Manual) 4, Eosinophils % (Manual) 1, Basophils % ( Manual) 0, Band Neutrophils 0, Platelet Estimate Adequate, Platelet Morphology Normal, Hypochromasia 1+ 12/27/19 07:45: Arterial Blood pH 7.372, Arterial Blood Partial Pressure CO2 55.0H, Arterial Blood Partial Pressure O2 59.3L, Arterial Blood HCO3 31.2H, Arterial Blood Oxygen Saturation 88.0*L, Arterial Blood Base Excess 5.0H, Devyn Test Positive Height (Feet): 5 Height (Inches): 8.00 Weight (Pounds): 173 General Appearance: mild distress EENT: other Cardiovascular: tachycardia Respiratory/Chest: decreased breath sounds Abdomen: distended Objective No change Ed Vega MD December 27, 2019 11:50
--- NOTE | 2019-12-27 12:00 | NUR ---
NURSE NOTES: LATE ENTRY: MD DUGGAN HERE TO SEE PT. INFORMED PT TACHYPNEIC. RR40'S, ABG: Nan 55, PO2 59. BIPAP 100% FI02. labored. NO NEW ORDERS.
--- NOTE | 2019-12-27 12:00 | Pulmonology Progress Note ---
Subjective ROS Limited/Unobtainable: Yes Interval Events: Doing poorly; remains on BiPAP Constitutional: Reports: no symptoms HEENT: Repors: no symptoms Respiratory: Reports: dry cough, shortness of breath Cardiovascular: Reports: no symptoms Gastrointestinal/Abdominal: Reports: no symptoms Genitourinary: Reports: no symptoms Neurologic: Reports: no symptoms Allergies: Coded Allergies: No Known Allergies (Unverified , 07/28/14) All Systems: reviewed and negative except above Objective Last 24 Hour Vital Signs Date Time Temp Pulse Resp B/P (MAP) Pulse Ox O2 Delivery O2 Flow Rate FiO2 12/27/19 11:30 86 43 119/74 (89) 95 12/27/19 11:12 91 43 94 100 12/27/19 11:00 87 38 121/68 (85) 95 12/27/19 10:30 90 39 118/73 (88) 96 12/27/19 10:00 88 36 125/79 (94) 97 12/27/19 09:30 91 40 126/77 (93) 93 12/27/19 09:00 90 39 136/69 (91) 92 12/27/19 08:53 92 131/70 12/27/19 08:30 90 38 131/70 (90) 93 12/27/19 08:00 Bi-pap 12/27/19 08:00 100 12/27/19 08:00 98.8 94 43 134/68 (90) 92 12/27/19 07:08 90 Bi-Pap 100 12/27/19 07:08 101 44 90 100 12/27/19 07:00 93 40 126/89 (101) 96 12/27/19 06:30 90 36 128/75 (92) 96 12/27/19 06:00 96 41 134/74 (94) 97 12/27/19 05:30 87 40 119/64 (82) 99 12/27/19 05:00 90 40 121/70 (87) 97 12/27/19 04:30 82 38 112/67 (82) 95 12/27/19 04:00 Bi-pap 12/27/19 04:00 98.9 78 36 127/57 (80) 90 12/27/19 04:00 100 12/27/19 03:32 85 12/27/19 03:00 87 41 113/66 (82) 94 12/27/19 02:35 81 32 99 100 12/27/19 02:30 90 36 129/79 (96) 99 12/27/19 02:00 92 36 124/61 (82) 100 12/27/19 01:30 85 36 119/70 (86) 100 12/27/19 01:00 81 35 99/56 (70) 99 12/27/19 00:30 83 36 119/61 (80) 99 12/27/19 00:00 Bi-pap 12/27/19 00:00 98.3 89 34 117/77 (90) 97 12/27/19 00:00 100 12/26/19 23:30 85 37 106/66 (79) 100 12/26/19 23:29 86 12/26/19 23:10 86 31 100 100 12/26/19 23:00 87 37 101/51 (68) 100 12/26/19 22:30 85 34 96/50 (65) 100 12/26/19 22:00 87 31 93/54 (67) 100 12/26/19 21:30 90 34 112/49 (70) 100 12/26/19 21:00 93 34 103/51 (68) 100 12/26/19 20:30 96 37 98/60 (73) 99 12/26/19 20:09 99 99/54 12/26/19 20:01 98 36 99/54 (69) 100 12/26/19 20:00 Bi-pap 12/26/19 20:00 100 12/26/19 20:00 98.7 96 34 79/52 (61) 100 12/26/19 19:31 101 12/26/19 19:30 101 37 92/51 (65) 98 12/26/19 19:15 100 Bi-Pap 100 12/26/19 19:15 106 36 94 100 12/26/19 19:00 108 40 101/61 (74) 96 12/26/19 18:00 109 45 111/64 (80) 95 12/26/19 17:00 Bi-pap 12/26/19 17:00 114 44 125/76 (92) 95 12/26/19 16:00 Bi-pap 12/26/19 16:00 100 12/26/19 16:00 113 44 118/69 (85) 97 12/26/19 16:00 113 5/14/20 16:00 99.6 113 44 118/69 (85) 97 12/26/19 15:15 115 44 95 95 12/26/19 15:00 118 40 112/67 (82) 95 12/26/19 14:00 118 44 136/80 (98) 97 12/26/19 13:30 117 44 136/75 (95) 97 12/26/19 13:00 116 45 127/75 (92) 97 12/26/19 12:41 117 46 100 100 12/26/19 12:30 116 45 138/81 (100) 97 12/26/19 12:00 118 45 152/85 (107) 98 12/26/19 12:00 100 12/26/19 12:00 112 12/26/19 12:00 Bi-pap Intake and Output 12/26/19 12/27/19 19:00 07:00 Intake Total 1144.67 ml 1128.0736 ml Balance 1144.67 ml 1128.0736 ml IV Total 1144.67 ml 1128.0736 ml # Voids 665 600 # Bowel Movements 4 2 HEENT: atraumatic, anicteric Respiratory/Chest: chest wall non-tender, decreased breath sounds Cardiovascular: normal peripheral pulses Abdomen: soft, non tender, non distended Neurologic/Psychiatric: alert, responsive Microbiology Date/Time Source Procedure Growth Status 12/26/19 03:00 Urine,Clean Catch Urine Culture - Preliminary Yeast Species Resulted Laboratory Tests 12/26/19 19:45: Activated Partial Thromboplast Time 148H 12/27/19 03:35: Activated Partial Thromboplast Time 73H, White Blood Count 8.0, Red Blood Count 2.25L, Hemoglobin 6.3#*L, Hematocrit 20.3#L, Mean Corpuscular Volume 90, Mean Corpuscular Hemoglobin 28.0, Mean Corpuscular Hemoglobin Concent 31.0L, Red Cell Distribution Width 13.4, Platelet Count 90#L, Mean Platelet Volume 6.3L, Neutrophils (%) (Auto) , Lymphocytes (%) (Auto) , Monocytes (%) (Auto) , Eosinophils (%) (Auto) , Basophils (%) (Auto) , Differential Total Cells Counted 100, Neutrophils % (Manual) 86H, Lymphocytes % (Manual) 9L, Monocytes % (Manual) 3, Eosinophils % (Manual) 1, Basophils % (Manual) 0, Band Neutrophils 1 , Nucleated Red Blood Cells , Platelet Estimate DecreasedL, Platelet Morphology Normal, Hypochromasia 1+, Sodium Level 150H, Potassium Level 4.1, Chloride Level 110H, Carbon Dioxide Level 33H, Anion Gap 7, Blood Urea Nitrogen 54H, Creatinine 1.7H, Estimat Glomerular Filtration Rate 48.4, Glucose Level 176H, Calcium Level 8.7, Phosphorus Level 2.6, Magnesium Level 2.5H, Total Bilirubin 0.4, Direct Bilirubin 0.2, Aspartate Amino Transf (AST/SGOT) 27, Alanine Aminotransferase (ALT/SGPT) 23, Alkaline Phosphatase 114, Total Protein 6.7, Albumin 2.0L 12/27/19 07:00: White Blood Count 17.1#H, Red Blood Count 3.23L, Hemoglobin 9.1#L, Hematocrit 27.9#L, Mean Corpuscular Volume 87, Mean Corpuscular Hemoglobin 28.1, Mean Corpuscular Hemoglobin Concent 32.5, Red Cell Distribution Width 12.2, Platelet Count 192#, Mean Platelet Volume 7.1, Neutrophils (%) (Auto) , Lymphocytes (%) ( Auto) , Monocytes (%) (Auto) , Eosinophils (%) (Auto) , Basophils (%) (Auto) , Differential Total Cells Counted 100, Neutrophils % (Manual) 87H, Lymphocytes % (Manual) 8L, Monocytes % (Manual) 4, Eosinophils % (Manual) 1, Basophils % ( Manual) 0, Band Neutrophils 0, Platelet Estimate Adequate, Platelet Morphology Normal, Hypochromasia 1+ 12/27/19 07:45: Arterial Blood pH 7.372, Arterial Blood Partial Pressure CO2 55.0H, Arterial Blood Partial Pressure O2 59.3L, Arterial Blood HCO3 31.2H, Arterial Blood Oxygen Saturation 88.0*L, Arterial Blood Base Excess 5.0H, Devyn Test Positive Current Medications Medications (Trade) Dose Ordered Sig/Wiley Route PRN Reason Start Time Stop Time Status Last Admin Dose Admin Acetaminophen (Tylenol) 650 mg Q6H PRN NG Mild Pain (Pain Scale 1-3) 12/26/19 17:00 01/25/20 16:59 12/26/19 18:23 Carvedilol (Coreg) 3.125 mg EVERY 12 HOURS NG 12/26/19 21:00 01/10/20 20:59 12/27/19 08:53 Chlorhexidine Gluconate (Milagro-Hex 2%) 1 applic DAILY@2000 TOPIC 12/25/19 20:00 03/24/20 19:59 12/26/19 20:40 Dextrose (Dextrose 50%) 25 ml Q30M PRN IV Hypoglycemia 12/24/19 13:45 03/23/20 13:44 Dextrose (Dextrose 50%) 50 ml Q30M PRN IV Hypoglycemia 12/24/19 13:45 03/23/20 13:44 Heparin Sodium/ Dextrose 500 ml @ 23.541 mls/ hr ADJUST PER PROTOCOL IV 12/26/19 21:30 01/25/20 21:29 12/27/19 09:14 Insulin Aspart (NovoLOG) Q6HR SUBQ 12/24/19 18:00 03/23/20 17:59 12/27/19 05:37 Levetiracetam (Keppra) 1,000 mg Q12HR NG 12/26/19 09:00 01/25/20 08:59 12/27/19 08:52 Lorazepam (Ativan 2mg/ml 1ml) 1 mg Q6H PRN IV For Anxiety 12/26/19 13:45 01/02/20 13:44 12/26/19 13:42 Meropenem 1 gm/ Sodium Chloride 55 ml @ 110 mls/hr Q12HR IVPB 12/25/19 14:00 12/30/19 13:59 12/27/19 08:52 Micafungin Sodium 100 mg/Sodium Chloride 110 ml @ 110 mls/hr Q24H IVPB 12/27/19 12:30 01/03/20 12:29 Norepinephrine Bitartrate 4 mg/ Dextrose 250 ml @ 0 mls/hr Q24H PRN IV For hypotension 12/24/19 19:00 01/23/20 18:59 12/25/19 16:02 Sodium Chloride 1,000 ml @ 75 mls/hr [id number] IV 12/24/19 13:15 01/23/20 09:29 12/27/19 05:37 Vancomycin HCl (Vanco rx to dose) 1 ea DAILY PRN MISC Per rx protocol 12/27/19 11:15 01/26/20 11:14 Vancomycin/Sodium Chloride 275 ml @ 137.5 mls/ hr ONCE IVPB 12/27/19 12:30 12/27/19 13:30 Assessment/Plan Assessment/Plan IMPRESSION: 1. Cardiomyopathy. 2. Hypotension. 3. Left lung pneumonia. 4. group home resident. 5. Positive COVID-19. DISCUSSION: 1. Continue isolation 2. Continue current medications. 3. Off pressors. 4. Continue BiPAP; abg adequate 5. Pulmonary hygiene. 6. Broad-spectrum antibiotics. 7. I will follow. 8. Pulmonary hygiene 9. Continue diuresis, on Lasix 40 mg IV BID; CXR unchanged On anticoagulation Mike Montalvo M.D. Mike Montalvo MD December 27, 2019 12:00
--- NOTE | 2019-12-27 12:20 | NUR ---
NURSE NOTES: LATE ENTRY: ACCUCHK 189-4UNITS GIVEN. PT ASYMPTOMATIC. ORAL CARE PROVIDED, PT DESATS WHEN BIPAP REMOVED, THICK ORAL SECRETION BUILD UP NOTED.
[2019-12-27] MEDS ORDERED: Vancomycin 1.5gm/NS Premix IVPB SCH (12:30)
[2019-12-27] MEDS: Micafungin 100 MG in NS 110 ML IVPB SCH (12:35)
--- NOTE | 2019-12-27 13:12 | NUR ---
RADIOLOGY DEPT., CHEST X-RAY DONE.-P.DYE
--- NOTE | 2019-12-27 13:40 | NUR ---
NURSE NOTES: LATE ENTRY: MD DOUGLAS HERE TO SEE PT. WAS INFORMED PT HAS PVCS, OCCASIONAL ST. BP STABLE. NO NEW ORDERS AT THIS TIME.
--- NOTE | 2019-12-27 14:06 | Cardiac Electrophysiology PN ---
Assessment/Plan Assessment/Plan 1. Septic Shock due to EF 40% and sepsis. BNP is 736. On Abx by Dr. Sanchez. Off Levophed 2. CHF EF 40%. On Coreg 3.125 bid. 3. Status post right-sided MERT ICD. 4. Hypertension 5. History of CVA with residual weakness. 6. Respiratory failure due to COVID-19 PNA, on BIPAP on heparin drip 7. Hypernatremia. 8. Acute renal failure. Cr up from 0.9 to 2.8. KOTA RN Subjective Subjective In Covid isolation in ICU Off levo. On BIPAP 15/ and heparin drip Objective Last 24 Hour Vital Signs Date Time Temp Pulse Resp B/P (MAP) Pulse Ox O2 Delivery O2 Flow Rate FiO2 12/27/19 11:30 86 43 119/74 (89) 95 12/27/19 11:12 91 43 94 100 12/27/19 11:00 87 38 121/68 (85) 95 12/27/19 10:30 90 39 118/73 (88) 96 12/27/19 10:00 88 36 125/79 (94) 97 12/27/19 09:30 91 40 126/77 (93) 93 12/27/19 09:00 90 39 136/69 (91) 92 12/27/19 08:53 92 131/70 12/27/19 08:30 90 38 131/70 (90) 93 12/27/19 08:00 Bi-pap 12/27/19 08:00 100 12/27/19 08:00 91 12/27/19 08:00 98.8 94 43 134/68 (90) 92 12/27/19 07:08 90 Bi-Pap 100 12/27/19 07:08 101 44 90 100 12/27/19 07:00 93 40 126/89 (101) 96 12/27/19 06:30 90 36 128/75 (92) 96 12/27/19 06:00 96 41 134/74 (94) 97 12/27/19 05:30 87 40 119/64 (82) 99 12/27/19 05:00 90 40 121/70 (87) 97 12/27/19 04:30 82 38 112/67 (82) 95 12/27/19 04:00 Bi-pap 12/27/19 04:00 98.9 78 36 127/57 (80) 90 12/27/19 04:00 100 12/27/19 03:32 85 12/27/19 03:00 87 41 113/66 (82) 94 12/27/19 02:35 81 32 99 100 12/27/19 02:30 90 36 129/79 (96) 99 12/27/19 02:00 92 36 124/61 (82) 100 12/27/19 01:30 85 36 119/70 (86) 100 12/27/19 01:00 81 35 99/56 (70) 99 12/27/19 00:30 83 36 119/61 (80) 99 12/27/19 00:00 Bi-pap 12/27/19 00:00 98.3 89 34 117/77 (90) 97 12/27/19 00:00 100 12/26/19 23:30 85 37 106/66 (79) 100 12/26/19 23:29 86 12/26/19 23:10 86 31 100 100 12/26/19 23:00 87 37 101/51 (68) 100 12/26/19 22:30 85 34 96/50 (65) 100 12/26/19 22:00 87 31 93/54 (67) 100 12/26/19 21:30 90 34 112/49 (70) 100 12/26/19 21:00 93 34 103/51 (68) 100 12/26/19 20:30 96 37 98/60 (73) 99 12/26/19 20:09 99 99/54 12/26/19 20:01 98 36 99/54 (69) 100 12/26/19 20:00 Bi-pap 12/26/19 20:00 100 12/26/19 20:00 98.7 96 34 79/52 (61) 100 12/26/19 19:31 101 12/26/19 19:30 101 37 92/51 (65) 98 12/26/19 19:15 100 Bi-Pap 100 12/26/19 19:15 106 36 94 100 12/26/19 19:00 108 40 101/61 (74) 96 12/26/19 18:00 109 45 111/64 (80) 95 12/26/19 17:00 Bi-pap 12/26/19 17:00 114 44 125/76 (92) 95 12/26/19 16:00 Bi-pap 12/26/19 16:00 100 12/26/19 16:00 113 44 118/69 (85) 97 12/26/19 16:00 113 12/26/19 16:00 99.6 113 44 118/69 (85) 97 12/26/19 15:15 115 44 95 95 12/26/19 15:00 118 40 112/67 (82) 95 Intake and Output 12/26/19 12/27/19 19:00 07:00 Intake Total 1144.67 ml 1128.0736 ml Balance 1144.67 ml 1128.0736 ml IV Total 1144.67 ml 1128.0736 ml # Voids 665 600 # Bowel Movements 4 2 Laboratory Tests Test 12/26/19 19:45 12/27/19 03:35 12/27/19 07:00 12/27/19 07:45 Activated Partial Thromboplast Time 148 SEC (23-33) H 73 SEC (23-33) H White Blood Count 8.0 K/UL (4.8-10.8) 17.1 K/UL (4.8-10.8) #H Red Blood Count 2.25 M/UL (4.70-6.10) L 3.23 M/UL (4.70-6.10) L Hemoglobin 6.3 G/DL (14.2-18.0) 9.1 G/DL (14.2-18.0) #L Hematocrit 20.3 % (42.0-52.0) #L 27.9 % (42.0-52.0) #L Mean Corpuscular Volume 90 FL (80-99) 87 FL (80-99) Mean Corpuscular Hemoglobin 28.0 PG (27.0-31.0) 28.1 PG (27.0-31.0) Mean Corpuscular Hemoglobin Concent 31.0 G/DL (32.0-36.0) L 32.5 G/DL (32.0-36.0) Red Cell Distribution Width 13.4 % (11.6-14.8) 12.2 % (11.6-14.8) Platelet Count 90 K/UL (150-450) #L 192 K/UL (150-450) # Mean Platelet Volume 6.3 FL (6.5-10.1) L 7.1 FL (6.5-10.1) Neutrophils (%) (Auto) % (45.0-75.0) % (45.0-75.0) Lymphocytes (%) (Auto) % (20.0-45.0) % (20.0-45.0) Monocytes (%) (Auto) % (1.0-10.0) % (1.0-10.0) Eosinophils (%) (Auto) % (0.0-3.0) % (0.0-3.0) Basophils (%) (Auto) % (0.0-2.0) % (0.0-2.0) Differential Total Cells Counted 100 100 Neutrophils % (Manual) 86 % (45-75) H 87 % (45-75) H Lymphocytes % (Manual) 9 % (20-45) L 8 % (20-45) L Monocytes % (Manual) 3 % (1-10) 4 % (1-10) Eosinophils % (Manual) 1 % (0-3) 1 % (0-3) Basophils % (Manual) 0 % (0-2) 0 % (0-2) Band Neutrophils 1 % (0-8) 0 % (0-8) Nucleated Red Blood Cells /100 WBC Platelet Estimate Decreased L Adequate Platelet Morphology Normal Normal Hypochromasia 1+ 1+ Sodium Level 150 MMOL/L (136-145) H Potassium Level 4.1 MMOL/L (3.5-5.1) Chloride Level 110 MMOL/L (98-107) H Carbon Dioxide Level 33 MMOL/L (21-32) H Anion Gap 7 mmol/L (5-15) Blood Urea Nitrogen 54 mg/dL (7-18) H Creatinine 1.7 MG/DL (0.55-1.30) H Estimat Glomerular Filtration Rate 48.4 mL/min (>60) Glucose Level 176 MG/DL (74-106) H Calcium Level 8.7 MG/DL (8.5-10.1) Phosphorus Level 2.6 MG/DL (2.5-4.9) Magnesium Level 2.5 MG/DL (1.8-2.4) H Total Bilirubin 0.4 MG/DL (0.2-1.0) Direct Bilirubin 0.2 MG/DL (0.0-0.3) Aspartate Amino Transf (AST/SGOT) 27 U/L (15-37) Alanine Aminotransferase (ALT/SGPT) 23 U/L (12-78) Alkaline Phosphatase 114 U/L (46-116) Total Protein 6.7 G/DL (6.4-8.2) Albumin 2.0 G/DL (3.4-5.0) L Arterial Blood pH 7.372 (7.350-7.450) Arterial Blood Partial Pressure CO2 55.0 mmHg (35.0-45.0) H Arterial Blood Partial Pressure O2 59.3 mmHg (75.0-100.0) L Arterial Blood HCO3 31.2 mmol/L (22.0-26.0) H Arterial Blood Oxygen Saturation 88.0 % (95-100) *L Arterial Blood Base Excess 5.0 (-2-2) H Devyn Test Positive Microbiology Date/Time Source Procedure Growth Status 12/26/19 03:00 Urine,Clean Catch Urine Culture - Preliminary Yeast Species Resulted Objective HEAD AND NECK: Mild JVD.BIPAP is on LUNGS: Decreased breath sounds and rhonchi CARDIOVASCULAR: Regular S1 and S2 with no gallop. ABDOMEN: Soft. EXTREMITIES: 1+ pitting edema. Defibrillator right subclavian. Shai Bullard MD December 27, 2019 14:06
[2019-12-27] MEDS ORDERED: Lidocaine 1% Plain 30 ml INJ PRN (14:15)
[2019-12-27] MEDS ORDERED: Heparin1,000 units/500ml Premix(Conc:2 units/ml) IV PRN (14:15)
--- NOTE | 2019-12-27 14:48 | Diagnostic Imaging Report ---
Indication: Shortness of breath Technique: XRAY Chest 1v Comparison: 12/26/2019 Findings: Heart size and mediastinal contours are stable. Atherosclerotic calcifications in right-sided pacer/AICD again noted. There is interstitial opacification/edema which appears increased slightly compared to the prior exam. There are patchy perihilar airspace opacities. Some dense opacities the left base are noted. No significant pleural effusion. No evidence of pneumothorax. NG tube remains in place. IMPRESSION: Interstitial and bilateral airspace disease, slightly increased compared to one day prior. Findings may related to CHF and/or multifocal pneumonia. NG tube remains in place, satisfactory in position. Cardiomegaly and indwelling pacer/AICD.
--- NOTE | 2019-12-27 15:00 | NUR ---
NURSE NOTES: LATE ENTRY: LIABILITY CLAIMS ADJUSTER HERE TO DO PICC LINE. PT STABLE.
--- NOTE | 2019-12-27 16:10 | NUR ---
NURSE NOTES: LATE ENTRY: PICC INSERTED DIANA. AWAITING CONFIRMATION FOR USEAGE. PT VSS. WILL CONTINUE TO MONITOR.
--- NOTE | 2019-12-27 16:29 | Diagnostic Imaging Report ---
EXAM: XRAY Abdomen 1v HISTORY: NG tube placement COMPARISON: 12/24/2019 at 1213 hours. Present study at 1616 hours. TECHNIQUE: Frontal view of the abdomen obtained. FINDINGS: NG tube noted in stomach. There is a right femoral line in place. There is a nonobstructed bowel gas pattern. No definite pathologic calcifications identified. There is no sign of free air. No acute abnormality noted of the visualized osseous structures. IMPRESSION: NG TUBE IN STOMACH. NONOBSTRUCTIVE BOWEL GAS PATTERN. RIGHT FEMORAL LINE IN PLACE.
--- NOTE | 2019-12-27 16:30 | NUR ---
CASE MANAGEMENT: REVIEW 12/27/2019 SI:SEVERE SEPSIS. T 99 HR 86 RR 41 B/P 135/85 SATS 97% ON BIPAP FIO2 100 LABS: WBC 17.1 NA 150 CL 110 CO2 33 BUN 54 CR 1.7 GLU 176 MG 2.5 IS:NS @ 75 ML/HR COREG NG Q12H HEPARIN DRIP PER PARAMETERS MEROPENEM IV Q12H KEPPRA NG Q12H INSULIN ASPART SUBQ Q6H LEVOPHED IV PER PARAMETERS ICU PLAN OF CARE: Continue isolation Continue current medications Continue BiPAP Pulmonary hygiene Broad-spectrum antibiotics
--- NOTE | 2019-12-27 16:30 | Diagnostic Imaging Report ---
Procedure: XRAY Chest/Abdomen 1v Reason for study: Reason For Exam: NGT Comparison films: 12/23/2019. FINDINGS: CHEST: Cardiac pacer remains in place. There is an NG tube with the tip in the midesophagus. Vascularity is normal. Hazy interstitial infiltrates remain bilaterally. Cardiomegaly unchanged. No large effusion seen. The bony thorax appear unremarkable. KUB: Only the upper abdomen is shown. Technologist noted that the patient is on BiPAP and could not be abruptly situated to include the lower abdomen. There is nonspecific bowel gas pattern. There is no mass or mass effect noted. No definite pathologic calcifications identified. There is no signs of free air. No acute abnormality noted of the visualized osseous structures. IMPRESSION: NG tube in midesophagus. Recommend advancement. Bilateral interstitial infiltrates unchanged. No gross acute abnormality noted in the upper abdomen.
--- NOTE | 2019-12-27 16:30 | Diagnostic Imaging Report ---
Procedure: XRAY Chest 1v Reason for study: Reason For Exam: COUGH Comparison films: 12/23/2019. FINDINGS: Cardiac pacer remains in place. There is a new NG tube in the stomach. Vascularity is normal. Bilateral infiltrates unchanged. Cardiac and mediastinal silhouette are within normal limits. CP angles are sharp. The bony thorax appear unremarkable. IMPRESSION: New NG tube in good position. Otherwise no change.
--- NOTE | 2019-12-27 16:55 | Pre-Procedure Note/Attestation ---
Pre-Procedure Note/Attestation Complete Prior to Procedure Planned Procedure: not applicable Procedure Narrative: PICC line Indications for Procedure Pre-Operative Diagnosis: need iv access Attestation informed consent obtained by primary team. this was confirmed prior to procedure. I attest that I re-evaluated the patient just prior to the surgery and that there has been no change in the patient's H&P, except as documented below: Baldev Zarate M.D. December 27, 2019 16:55
--- NOTE | 2019-12-27 17:01 | Diagnostic Imaging Report ---
Indications: Needs long-term IV access Technique: Procedure performed at bedside. Procedural timeout performed. Ultrasound confirms patent compressible left basilic vein. Total sterile technique, including sterile probe cover and sterile gel, sterile gloves, hand hygiene, hat, mask,, sterile gown, large sterile drape, and preparation with 2% chlorhexidine utilized. Local anesthesia with 1% lidocaine. Under real-time ultrasound guidance, puncture left basilic vein using 21-gauge needle, passage 0.018 guidewire, exchange for 5 Luxembourger peel-away sheath. 4 Luxembourger dual-lumen power PICC cut to 40 cm. It was inserted through the peel-away sheath. Peel-away sheath and guidewire removed. Catheter fixed to the skin. Both catheter ports aspirated and flushed. Patient tolerated procedure well, without immediate complication. Followup chest x-ray obtained, documents catheter tip position at the innominate venous confluence. Additional findings not significantly changed from radiograph earlier today. Impression: Successful bedside placement of 4 Luxembourger double-lumen PICC under sonographic guidance, as described above. Catheter cleared for immediate use.
--- NOTE | 2019-12-27 18:00 | NUR ---
NURSE NOTES: LATE ENTRY: HYGIENE PROVIDED, PT REPOSITIONED, HIGH FOWLERS. NO BM AT THIS TIME. ACCUHK 185, 4 UNITS GIVEN.
--- NOTE | 2019-12-27 19:00 | Progress Note ---
DATE: 12/27/2019 SUBJECTIVE: This is a 69-year-old patient with altered mental status, hypertension and sepsis. He still has some confusion, altered mental status, and decline in cognition below his baseline that is why his attending has requested daily psychiatric consultation. MENTAL STATUS EXAMINATION: This is a 69-year-old male. Appearance is disheveled. Attitude, irritable and agitated. Affect, guarded and restricted. Intellect poor. Mood, depressed and anxious. Motor activity, psychomotor agitation. Insight and judgment poor. DIAGNOSIS: Major depressive disorder, mild, recurrent with psychotic features, rule out dementia with psychosis. PLAN: Continue treatment with medications to stabilize his mood. 20 minutes of cognitive behavioral therapy will help him identify his automatic negative thoughts, help him convert his negative thoughts to more positive thoughts to reduce depression, anxiety, and mood lability. Also 20 minutes of insight-oriented psychotherapy. This patient is in the ICU, but he has lot of psychomotor agitation and irritability. He will continue to be followed by Psychiatry throughout his hospital course. He still has lot of anxiety and agitation, so I am going continue his Ativan as needed to reduce anxiety and agitation. Chart reviewed and discussed with staff. Seen and assessed in ICU. Mirna Adkins M.D. DR: Blake JOB#: [id number] CC:
--- NOTE | 2019-12-27 19:30 | NUR ---
NURSE NOTES: Received report from Chu RN. Patient in bed sleeping able to responds to verbal and tactile stimuli. On BiPAP 15/5 @100%, O2 saturation 95-100%. HOB elevated. L NGT in place. NPO. Mosqueda catheter in place and draining. Left Upper Arm PICC line intact running 1/2 NS @ 75ml/hr and Heparin @ 15units. Next timed PTT in am. Left soft non violent restraint intact checked. Safety measures in place. Airborne, contact isolation maintained and observed. Will continue plan of care.
--- NOTE | 2019-12-27 19:32 | NUR ---
NURSE NOTES: CALLED AND LEFT MESSAGE REGARDING NEED FOR PO CARDIZEM. PT OFF DRIP SINCE 1300. AWAITING CALL BACK. Addendum: 12/27/19 at 1934 by Janeth Sage RN WRONG PT
[2019-12-27] MEDS: Dyna-Hex 2% Top Sol 2oz TOPIC SCH (20:49)
--- NOTE | 2019-12-27 21:30 | NUR ---
NURSE NOTES: On BiPAP 15/5 @100%, O2 saturation 95-100%. HOB elevated. L NGT in place. NPO. Mosqueda catheter in place and draining. Left Upper Arm PICC line intact running 1/2 NS @ 75ml/hr and Heparin @ 15units. Safety measures in place. Will continue plan of care.
--- NOTE | 2019-12-27 22:30 | NUR ---
NURSE NOTES: On BiPAP 15/5 @100%, O2 saturation 95-100%. HOB elevated. L NGT in place. NPO. Mosqueda catheter in place and draining. Left Upper Arm PICC line intact running 1/2 NS @ 75ml/hr and Heparin @ 15units. No bleeding.Safety measures in place. Will continue plan of care.
[2019-12-28] VITALS (21 sets, daily range): BP systolic 83–144; BP diastolic 50–91
--- NOTE | 2019-12-28 00:30 | NUR ---
NURSE NOTES: Repositioned patient in bed. comfort measure provided. frequent visual checks continued.
--- NOTE | 2019-12-28 02:30 | NUR ---
NURSE NOTES: Bed bath given tolerated well. repositioned patient in bed. no s/s of acute distress noted. Continue on Heparin drip at 15units/kg/hr no bleeding. will continue plan of care.
--- NOTE | 2019-12-28 04:00 | NUR ---
NURSE NOTES: Dev Ops Engineer came to draw Timed PTT.
--- NOTE | 2019-12-28 06:01 | NUR ---
NURSE NOTES: Called Lab regarding timed PTT no result yet. spoke with Nalini.
[2019-12-28 06:02] LABS: HEMATOCRIT 27.2 % (42.0-52.0); HEMOGLOBIN 8.9 G/DL (14.2-18.0); MEAN CORPUSCULAR VOLUME 86 FL (80-99); PLATELET COUNT 238 K/UL (150-450); RED BLOOD COUNT 3.17 M/UL (4.70-6.10); RED CELL DISTRIBUTION WIDTH 11.9 % (11.6-14.8); WHITE BLOOD COUNT 18.1 K/UL (4.8-10.8)
[2019-12-28 06:30] LABS: ANION GAP 8 mmol/L (5-15); BLOOD UREA NITROGEN 49 mg/dL (7-18); CALCIUM 8.4 MG/DL (8.5-10.1); CARBON DIOXIDE 30 MMOL/L (21-32); CHLORIDE 109 MMOL/L (98-107); CREATININE 1.7 MG/DL (0.55-1.30); POTASSIUM 4.4 MMOL/L (3.5-5.1); SODIUM 147 MMOL/L (136-145)
[2019-12-28 06:31] LABS: ALANINE AMINOTRANSFERASE 20 U/L (12-78); ALBUMIN 1.8 G/DL (3.4-5.0); ALKALINE PHOSPHATASE 144 U/L (46-116); ASPARTATE AMINO TRANSFERASE 22 U/L (15-37); BILIRUBIN,DIRECT 0.2 MG/DL (0.0-0.3); BILIRUBIN,TOTAL 0.4 MG/DL (0.2-1.0); PHOSPHORUS 3.2 MG/DL (2.5-4.9)
[2019-12-28] MEDS ORDERED: Heparin 5000 units/ml inj IV SCH ×3 (06:45→07:08)
[2019-12-28] MEDS: NovoLOG Insulin Flexpen SUBQ SCH ×4 (06:54→18:07)
[2019-12-28] MEDS ORDERED: Heparin 5000 units/ml inj IV ONE (07:00)
[2019-12-28] MEDS ORDERED: Heparin 25,000u/D5W 500ml 500 ML IV SCH ×2 (07:00→17:00)
--- NOTE | 2019-12-28 07:20 | NUR ---
HAND-OFF: Report given to BARBARA Sage. Per Pharmacist will send the Heparin vial, endorsed to Chu JIMENEZ.
--- NOTE | 2019-12-28 07:40 | NUR ---
NURSE NOTES: LATE ENTRY: RECEIVED REPORT FROM IFTIKHAR Ann PT IN SEMI FOWLERS, NOTED LABORED BREATHS, TACHYPNEIC AT 43, SP02 SATING 87. BIPAP 15/5, 100%FI02. VS: 101, 128/69, DIMINISHED LUNG SOUNDS. PT. A/OX1, FATIGUED. NPO, RT NARES NGT. HYPOACTIVE BOWEL SOUNDS.ABDOMEN SOFT. PERKINS DRAINING OTIS URINE. NO BM AT THIS TIME. SKIN- SEE ASSESSMENT. DIANA PICC. FLUIDS 1/2 NS @75ML/HR, HEP DRIP AT 19U/HR. 97.8 TEMP. LFT ARM WRIST RESTRAINT. RT SIDE PARALYSIS. BED LOCKED, IN LOW POSITION. AIRBORNE ISOLATION.
--- NOTE | 2019-12-28 08:07 | NUR ---
NURSE NOTES: heparin bolus delivered. will administer.
[2019-12-28] MEDS: Meropenem 1 GM in NS 55 ML IVPB SCH (08:25)
[2019-12-28] MEDS: levETIRAcetam 500mg/5ml Liquid NG SCH (08:25)
--- NOTE | 2019-12-28 09:55 | General Progress Note ---
Assessment/Plan Problem List: (1) Suspected COVID-19 virus infection ICD Codes: Z20.828 - Contact with and (suspected) exposure to other viral communicable diseases SNOMED: 865741787 (2) Anemia ICD Codes: D64.9 - Anemia, unspecified SNOMED: 766013448 (3) Weak ICD Codes: R53.1 - Weakness SNOMED: 74953210 (4) COPD (chronic obstructive pulmonary disease) ICD Codes: J44.9 - Chronic obstructive pulmonary disease, unspecified SNOMED: 61658015 (5) Diabetes ICD Codes: E11.9 - Type 2 diabetes mellitus without complications SNOMED: 49810056 (6) Epileptic seizure, generalized ICD Codes: G40.309 - Generalized idiopathic epilepsy and epileptic syndromes, not intractable, without status epilepticus SNOMED: 42919760 (7) Altered mental status ICD Codes: R41.82 - Altered mental status, unspecified SNOMED: 136600130 Qualifiers: Qualified Codes: R41.82 - Altered mental status, unspecified (8) Hypotension ICD Codes: I95.9 - Hypotension, unspecified SNOMED: 23261790 Qualifiers: Qualified Codes: I95.9 - Hypotension, unspecified (9) UTI (urinary tract infection) ICD Codes: N39.0 - Urinary tract infection, site not specified SNOMED: 02006716 Status: unchanged Assessment/Plan: o2 pulm tx abx pt diet cbc bmp am needs picc, ltach eval Subjective Constitutional: Reports: weakness Allergies: Coded Allergies: No Known Allergies (Unverified , 07/28/14) All Systems: reviewed and negative except above Subjective bipap sleepy in icu Objective Last 24 Hour Vital Signs Date Time Temp Pulse Resp B/P (MAP) Pulse Ox O2 Delivery O2 Flow Rate FiO2 12/28/19 09:19 97 38 100 100 12/28/19 08:26 101 128/69 12/28/19 08:00 Bi-pap 12/28/19 08:00 101 43 128/69 (88) 93 12/28/19 08:00 100 12/28/19 07:35 94 49 94 100 12/28/19 07:34 94 Bi-Pap 100 12/28/19 07:00 97 39 117/60 (79) 12/28/19 06:00 99 40 120/72 (88) 94 12/28/19 05:00 100 42 117/75 (89) 95 12/28/19 04:00 98.7 95 37 106/69 (81) 95 12/28/19 04:00 102 12/28/19 04:00 100 12/28/19 04:00 Bi-pap 12/28/19 03:20 97 40 99 100 12/28/19 03:00 98 38 110/59 (76) 99 12/28/19 02:00 109 44 133/64 (87) 99 12/28/19 01:00 106 48 137/84 (101) 96 12/28/19 00:00 98.4 102 36 144/91 (108) 91 12/28/19 00:00 100 12/28/19 00:00 94 12/28/19 00:00 Bi-pap 12/27/19 23:19 98 42 100 100 12/27/19 23:00 91 43 134/81 (98) 12/27/19 22:00 99.9 90 42 137/85 (102) 99 12/27/19 21:09 93 44 100 100 12/27/19 21:00 91 38 124/78 (93) 99 12/27/19 20:49 101 135/89 12/27/19 20:00 100 12/27/19 20:00 95 12/27/19 20:00 95 36 124/76 (92) 99 12/27/19 20:00 Bi-pap 12/27/19 19:02 100 Bi-Pap 100 12/27/19 19:01 101 45 100 100 12/27/19 19:00 98 39 135/89 (104) 12/27/19 18:00 101 41 135/81 (99) 97 12/27/19 17:00 91 46 139/80 (99) 90 12/27/19 16:00 100 12/27/19 16:00 91 12/27/19 16:00 99.3 88 49 130/85 (100) 87 12/27/19 16:00 Bi-pap 12/27/19 15:00 87 41 139/75 (96) 93 12/27/19 14:56 82 38 93 100 12/27/19 14:00 86 42 135/73 (93) 91 12/27/19 13:00 93 44 129/71 (90) 92 12/27/19 12:30 88 43 128/77 (94) 97 12/27/19 12:00 99.0 86 41 135/85 (102) 97 12/27/19 12:00 100 12/27/19 12:00 Bi-pap 12/27/19 11:30 86 43 119/74 (89) 95 12/27/19 11:12 91 43 94 100 12/27/19 11:00 87 38 121/68 (85) 95 12/27/19 10:30 90 39 118/73 (88) 96 12/27/19 10:00 88 36 125/79 (94) 97 Intake and Output 12/27/19 12/28/19 19:00 07:00 Intake Total 1205.410 ml 1383.501 ml Output Total 260 ml 420 ml Balance 945.410 ml 963.501 ml Free Water 100 ml IV Total 1205.410 ml 1223.501 ml Other 60 ml Output Urine Total 260 ml 420 ml # Voids 105 Laboratory Tests 12/28/19 04:35: White Blood Count 18.1H, Red Blood Count 3.17L, Hemoglobin 8.9L, Hematocrit 27.2L, Mean Corpuscular Volume 86, Mean Corpuscular Hemoglobin 28.1, Mean Corpuscular Hemoglobin Concent 32.7, Red Cell Distribution Width 11.9, Platelet Count 238, Mean Platelet Volume 8.4, Neutrophils (%) (Auto) , Lymphocytes (%) ( Auto) , Monocytes (%) (Auto) , Eosinophils (%) (Auto) , Basophils (%) (Auto) , Neutrophils % (Manual) [Pending], Lymphocytes % (Manual) [Pending], Platelet Estimate [Pending], Platelet Morphology [Pending], Activated Partial Thromboplast Time 50H, Sodium Level 147H, Potassium Level 4.4, Chloride Level 109H, Carbon Dioxide Level 30, Anion Gap 8, Blood Urea Nitrogen 49H, Creatinine 1.7H, Estimat Glomerular Filtration Rate 48.4, Glucose Level 197H, Calcium Level 8.4L, Phosphorus Level 3.2, Magnesium Level 2.1, Total Bilirubin 0.4, Direct Bilirubin 0.2, Aspartate Amino Transf (AST/SGOT) 22, Alanine Aminotransferase (ALT/SGPT) 20, Alkaline Phosphatase 144H, C-Reactive Protein, Quantitative 31.1H, Pro-B-Type Natriuretic Peptide 42030N, Total Protein 6.6, Albumin 1.8L, Random Vancomycin Level 20.7 12/28/19 08:27: Arterial Blood pH 7.328L, Arterial Blood Partial Pressure CO2 53.0H, Arterial Blood Partial Pressure O2 46.3*L, Arterial Blood HCO3 27.2H, Arterial Blood Oxygen Saturation 76.2*L, Arterial Blood Base Excess 0.8, Devyn Test Positive Height (Feet): 5 Height (Inches): 8.00 Weight (Pounds): 175 General Appearance: lethargic EENT: normal ENT inspection Neck: normal alignment Cardiovascular: normal rate, regular rhythm Respiratory/Chest: no respiratory distress, no accessory muscle use Extremities: normal inspection Skin: normal pigmentation Tee Novoa DO December 28, 2019 09:55
--- NOTE | 2019-12-28 10:33 | Infectious Diseases Prog Note ---
Assessment/Plan Assessment/Plan Assessment: Septic shock-recurrent- off pressors now Fever;improving Leukocytosis, fluctuating; increased -12/25 uA wbc 5-10, nit neg, leuk +2; ucx yeast sp -12/14 u/a wbc 15-20, nit neg, leuk +1 Bcx Neg -u/a neg -Bcx Neg Probable PNA- 2ry to COVID19 (from ID with confirmed cases) Acute hypoxic respiratory failure- was on NC, now on NRB- increasing FIo2 requiremetns -12/22 CXR: Minimally improved left, unchanged right infiltrates, since prior exam of 3 days earlier -12/19 CXR: Unchanged bilateral infiltrates, likely pneumonia, since prior exam of 3 days earlier. -12/16 CXR: Bilateral interstitial and airspace infiltrates are again demonstrated.Appearance is overall unchanged. There may be a small left pleural effusion,unchange -12/15 CRP 41.6, ferritin 1468 -12/14 CXR: . Worsening bilateral interstitial and airspace opacities. Probable small left pleural effusion. Difficult to evaluate the right costophrenic angle due to overlying pacemaker. 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 [facility] Plan: -Cont empiric IV Meropenem #4 and add IV Vancomycin #2 and Micafungin #2 given recurrent leukocytosis -Consider steroids -12/21 SP IV Vancomycin #5 -12/18 SP Zosyn #5 - SPSolumedrol 40mg IV 12hrs (12/15-12/17); dc'ed by sr solutions consultant - (day 10 of illness and worsening; around this time is seen the worsening of COVID19 pts mainly driven by inflammatory response) -12/10 SP Cefepime #6 -12/08 SP IV Vancomycin #4 -f/u cx -Monitor CBC/CMP, temperatures -COVID 19 precautions -clarify goals of care -aspiration precautions -inflammatory markers -f/u cx -monitor CXR -f/u Bcx x2, sp cx Thank you for consulting [facility]. Will continue to follow along with you. Discussed with RN, Subjective Allergies: Coded Allergies: No Known Allergies (Unverified , 07/28/14) Subjective Afebrile WBCs up to 18 from 17 Patient on BiPAP Objective Vital Signs Last 24 Hour Vital Signs Date Time Temp Pulse Resp B/P (MAP) Pulse Ox O2 Delivery O2 Flow Rate FiO2 12/28/19 10:00 95 39 99/54 (69) 100 12/28/19 09:19 97 38 100 100 12/28/19 09:00 97.8 96 40 112/58 (76) 69 12/28/19 08:26 101 128/69 12/28/19 08:00 Bi-pap 12/28/19 08:00 101 43 128/69 (88) 93 12/28/19 08:00 100 12/28/19 08:00 97 12/28/19 07:35 94 49 94 100 12/28/19 07:34 94 Bi-Pap 100 12/28/19 07:00 97 39 117/60 (79) 12/28/19 06:00 99 40 120/72 (88) 94 12/28/19 05:00 100 42 117/75 (89) 95 12/28/19 04:00 98.7 95 37 106/69 (81) 95 12/28/19 04:00 102 12/28/19 04:00 100 12/28/19 04:00 Bi-pap 12/28/19 03:20 97 40 99 100 12/28/19 03:00 98 38 110/59 (76) 99 12/28/19 02:00 109 44 133/64 (87) 99 12/28/19 01:00 106 48 137/84 (101) 96 12/28/19 00:00 98.4 102 36 144/91 (108) 91 12/28/19 00:00 100 12/28/19 00:00 94 12/28/19 00:00 Bi-pap 12/27/19 23:19 98 42 100 100 12/27/19 23:00 91 43 134/81 (98) 12/27/19 22:00 99.9 90 42 137/85 (102) 99 12/27/19 21:09 93 44 100 100 12/27/19 21:00 91 38 124/78 (93) 99 12/27/19 20:49 101 135/89 12/27/19 20:00 100 12/27/19 20:00 95 12/27/19 20:00 95 36 124/76 (92) 99 12/27/19 20:00 Bi-pap 12/27/19 19:02 100 Bi-Pap 100 12/27/19 19:01 101 45 100 100 12/27/19 19:00 98 39 135/89 (104) 12/27/19 18:00 101 41 135/81 (99) 97 12/27/19 17:00 91 46 139/80 (99) 90 12/27/19 16:00 100 12/27/19 16:00 91 12/27/19 16:00 99.3 88 49 130/85 (100) 87 12/27/19 16:00 Bi-pap 12/27/19 15:00 87 41 139/75 (96) 93 12/27/19 14:56 82 38 93 100 12/27/19 14:00 86 42 135/73 (93) 91 12/27/19 13:00 93 44 129/71 (90) 92 12/27/19 12:30 88 43 128/77 (94) 97 12/27/19 12:00 99.0 86 41 135/85 (102) 97 12/27/19 12:00 100 12/27/19 12:00 Bi-pap 12/27/19 11:30 86 43 119/74 (89) 95 12/27/19 11:12 91 43 94 100 12/27/19 11:00 87 38 121/68 (85) 95 Height (Feet): 5 Height (Inches): 8.00 Weight (Pounds): 175 Objective Patient not examined to day in order to conserve PPE Patient clinical status discussed with nurse and other physician notes and exams reviewed Microbiology Date/Time Source Procedure Growth Status 12/26/19 03:00 Urine,Clean Catch Urine Culture - Final Marybeth Albicans Complete Laboratory Tests Test 12/28/19 04:35 12/28/19 08:27 White Blood Count 18.1 K/UL (4.8-10.8) H Red Blood Count 3.17 M/UL (4.70-6.10) L Hemoglobin 8.9 G/DL (14.2-18.0) L Hematocrit 27.2 % (42.0-52.0) L Mean Corpuscular Volume 86 FL (80-99) Mean Corpuscular Hemoglobin 28.1 PG (27.0-31.0) Mean Corpuscular Hemoglobin Concent 32.7 G/DL (32.0-36.0) Red Cell Distribution Width 11.9 % (11.6-14.8) Platelet Count 238 K/UL (150-450) Mean Platelet Volume 8.4 FL (6.5-10.1) Neutrophils (%) (Auto) % (45.0-75.0) Lymphocytes (%) (Auto) % (20.0-45.0) Monocytes (%) (Auto) % (1.0-10.0) Eosinophils (%) (Auto) % (0.0-3.0) Basophils (%) (Auto) % (0.0-2.0) Neutrophils % (Manual) Pending Lymphocytes % (Manual) Pending Platelet Estimate Pending Platelet Morphology Pending Activated Partial Thromboplast Time 50 SEC (23-33) H Sodium Level 147 MMOL/L (136-145) H Potassium Level 4.4 MMOL/L (3.5-5.1) Chloride Level 109 MMOL/L (98-107) H Carbon Dioxide Level 30 MMOL/L (21-32) Anion Gap 8 mmol/L (5-15) Blood Urea Nitrogen 49 mg/dL (7-18) H Creatinine 1.7 MG/DL (0.55-1.30) H Estimat Glomerular Filtration Rate 48.4 mL/min (>60) Glucose Level 197 MG/DL (74-106) H Calcium Level 8.4 MG/DL (8.5-10.1) L Phosphorus Level 3.2 MG/DL (2.5-4.9) Magnesium Level 2.1 MG/DL (1.8-2.4) Total Bilirubin 0.4 MG/DL (0.2-1.0) Direct Bilirubin 0.2 MG/DL (0.0-0.3) Aspartate Amino Transf (AST/SGOT) 22 U/L (15-37) Alanine Aminotransferase (ALT/SGPT) 20 U/L (12-78) Alkaline Phosphatase 144 U/L (46-116) H C-Reactive Protein, Quantitative 31.1 mg/dL (0.00-0.90) H Pro-B-Type Natriuretic Peptide 98425 pg/mL (0-125) H Total Protein 6.6 G/DL (6.4-8.2) Albumin 1.8 G/DL (3.4-5.0) L Random Vancomycin Level 20.7 ug/mL Arterial Blood pH 7.328 (7.350-7.450) Arterial Blood Partial Pressure CO2 53.0 mmHg (35.0-45.0) H Arterial Blood Partial Pressure O2 46.3 mmHg (75.0-100.0) Arterial Blood HCO3 27.2 mmol/L (22.0-26.0) H Arterial Blood Oxygen Saturation 76.2 % (95-100) *L Arterial Blood Base Excess 0.8 (-2-2) Devyn Test Positive Current Medications Medications (Trade) Dose Ordered Sig/Wiley Route PRN Reason Start Time Stop Time Status Last Admin Dose Admin Acetaminophen (Tylenol) 650 mg Q6H PRN NG Mild Pain (Pain Scale 1-3) 12/26/19 17:00 01/25/20 16:59 12/26/19 18:23 Carvedilol (Coreg) 3.125 mg EVERY 12 HOURS NG 12/26/19 21:00 01/10/20 20:59 12/28/19 08:26 Chlorhexidine Gluconate (Milagro-Hex 2%) 1 applic DAILY@2000 TOPIC 12/25/19 20:00 03/24/20 19:59 12/27/19 20:49 Dextrose (Dextrose 50%) 25 ml Q30M PRN IV Hypoglycemia 12/24/19 13:45 03/23/20 13:44 Dextrose (Dextrose 50%) 50 ml Q30M PRN IV Hypoglycemia 12/24/19 13:45 03/23/20 13:44 Heparin Sodium/ Dextrose 500 ml @ 29.819 mls/ hr ADJUST PER PROTOCOL IV 12/28/19 07:00 01/27/20 06:59 12/28/19 06:48 Heparin Sodium/ Sodium Chloride (Heparin 1000 units/500ml Premix) 1,000 unit ONCE PRN IV dialysis 12/27/19 14:15 12/29/19 14:14 Insulin Aspart (NovoLOG) Q6HR SUBQ 12/24/19 18:00 03/23/20 17:59 12/28/19 06:54 Levetiracetam (Keppra) 1,000 mg Q12HR NG 12/26/19 09:00 01/25/20 08:59 12/28/19 08:25 Lidocaine HCl (Xylocaine 1% 30ml) 30 ml ONCE PRN INJ picc line placement 12/27/19 14:15 12/29/19 14:14 Lorazepam (Ativan 2mg/ml 1ml) 1 mg Q6H PRN IV For Anxiety 12/26/19 13:45 01/02/20 13:44 12/26/19 13:42 Meropenem 1 gm/ Sodium Chloride 55 ml @ 110 mls/hr Q12HR IVPB 12/25/19 14:00 12/30/19 13:59 12/28/19 08:25 Micafungin Sodium 100 mg/Sodium Chloride 110 ml @ 110 mls/hr Q24H IVPB 12/27/19 12:30 01/03/20 12:29 12/27/19 12:35 Norepinephrine Bitartrate 4 mg/ Dextrose 250 ml @ 0 mls/hr Q24H PRN IV For hypotension 12/24/19 19:00 01/23/20 18:59 12/25/19 16:02 Sodium Chloride 1,000 ml @ 75 mls/hr Q35Q63P IV 12/24/19 13:15 01/23/20 09:29 12/27/19 20:50 Vancomycin HCl (Vanco rx to dose) 1 ea DAILY PRN MISC Per rx protocol 12/27/19 11:15 01/26/20 11:14 Vancomycin HCl 1 gm/Dextrose 275 ml @ 183.708 mls/hr ONCE IVPB 12/28/19 21:00 12/28/19 23:00 Thaddeus Gerber MD December 28, 2019 10:33
--- NOTE | 2019-12-28 10:38 | NUR ---
NURSE NOTES: MD DUGGAN HERE TO SEE PT. WAS INFORMED PT RR 45, LABORED RESPIRATIONS, BIPAP CONTINUOS AT 15/5, FI02 100%. PT DESATS TO 50'S THEN TRENDS BACK UP SLOWLY. AM ABG RESULTS PH: 7.328, PCO2 53.0, P02 46.3, HCO3 27.2, 02 SAT 76.2. NO NEW ORDERS AT THIS TIME.
--- NOTE | 2019-12-28 11:01 | NUR ---
NURSE NOTES: CONSTABLE HERE TO SEE PT, INFORMED WBC 18.1, CRE 1.7, AFEBRILE. RECEIVING MERREM 1GRAM.
--- NOTE | 2019-12-28 11:11 | NUR ---
NURSE NOTES: MD GANT here to see pt. no new orders at this time. informed remains on bipap, may require intubation
--- NOTE | 2019-12-28 11:41 | Nephrology Progress Note ---
Assessment/Plan Problem List: (1) TRAE (acute kidney injury) (2) Electrolyte imbalance (3) Suspected COVID-19 virus infection (4) Hypotension Assessment: Resolved (5) Sepsis Assessment Patient's current problem from renal standpoint of view is hypokalemia and other electrolyte imbalances His other conditions: Patient presented with acute renal failure however it is now resolved Patient presented with septic shock was on pressors however now resolved Sepsis leukocytosis improving Patient has COVID-19 pneumonia Hypertension Cardiomyopathy status post AICD Previous CVA with right residual weakness Seizure disorders Plan COVID-19 positive December 16: White BCs are rising Blood pressure low, albumin bolus given Renal parameters stable Remains on BiPAP Continue to do poorly from a clinical standpoint of view Discussed with list of first job ideas will stop IV fluid and give Lasix December 26 Remains on BiPAP Creatinine down to 1.7 Not much to add from renal standpoint of view December 14: Remains on BiPAP Remains in ICU Serum creatinine slightly higher Discuss with asphalt tar and gravel roofer Continue per current management continue with slow hydration December 13: Patient now in ICU room J On BiPAP Discussed with RN Serum creatinine lower 1.9, Will recheck renal parameters and electrolytes and chemistries tomorrow Continue per consultants December 12: Patient is clinically deteriorating Respiratory status worsened Blood pressure low Serum creatinine peyman ABG indicative of CO2 retention Discussed with a asphalt tar and gravel roofer Patient due transfer to monitored bed for initiation of BiPAP Meanwhile we will give albumin bolus and start half-normal saline IV hydration May require pressors Overall prognosis poor I favor holding the mind altering medications Per orders December 11: In view of worsening renal failure and rise of creatinine to 1.8 will temporarily hold Lasix and lisinopril Discussed with Dr. Francisco Continue rest Previously: Magnesium and potassium as needed Stable from renal standpoint of view Continue per consultants We will continue to monitor electrolytes and chemistries Subjective ROS Limited/Unobtainable: Yes Objective Objective Last 24 Hour Vital Signs Date Time Temp Pulse Resp B/P (MAP) Pulse Ox O2 Delivery O2 Flow Rate FiO2 12/28/19 11:00 93 44 83/53 (63) 100 12/28/19 10:36 93 46 100 100 12/28/19 10:00 95 39 99/54 (69) 100 12/28/19 09:19 97 38 100 100 12/28/19 09:00 97.8 96 40 112/58 (76) 69 12/28/19 08:26 101 128/69 12/28/19 08:00 Bi-pap 12/28/19 08:00 101 43 128/69 (88) 93 12/28/19 08:00 100 12/28/19 08:00 97 12/28/19 07:35 94 49 94 100 12/28/19 07:34 94 Bi-Pap 100 12/28/19 07:00 97 39 117/60 (79) 12/28/19 06:00 99 40 120/72 (88) 94 12/28/19 05:00 100 42 117/75 (89) 95 12/28/19 04:00 98.7 95 37 106/69 (81) 95 12/28/19 04:00 102 12/28/19 04:00 100 12/28/19 04:00 Bi-pap 12/28/19 03:20 97 40 99 100 12/28/19 03:00 98 38 110/59 (76) 99 12/28/19 02:00 109 44 133/64 (87) 99 12/28/19 01:00 106 48 137/84 (101) 96 12/28/19 00:00 98.4 102 36 144/91 (108) 91 12/28/19 00:00 100 12/28/19 00:00 94 12/28/19 00:00 Bi-pap 12/27/19 23:19 98 42 100 100 12/27/19 23:00 91 43 134/81 (98) 12/27/19 22:00 99.9 90 42 137/85 (102) 99 12/27/19 21:09 93 44 100 100 12/27/19 21:00 91 38 124/78 (93) 99 12/27/19 20:49 101 135/89 12/27/19 20:00 100 12/27/19 20:00 95 12/27/19 20:00 95 36 124/76 (92) 99 12/27/19 20:00 Bi-pap 12/27/19 19:02 100 Bi-Pap 100 12/27/19 19:01 101 45 100 100 12/27/19 19:00 98 39 135/89 (104) 12/27/19 18:00 101 41 135/81 (99) 97 12/27/19 17:00 91 46 139/80 (99) 90 12/27/19 16:00 100 12/27/19 16:00 91 12/27/19 16:00 99.3 88 49 130/85 (100) 87 12/27/19 16:00 Bi-pap 12/27/19 15:00 87 41 139/75 (96) 93 12/27/19 14:56 82 38 93 100 12/27/19 14:00 86 42 135/73 (93) 91 12/27/19 13:00 93 44 129/71 (90) 92 12/27/19 12:30 88 43 128/77 (94) 97 12/27/19 12:00 99.0 86 41 135/85 (102) 97 12/27/19 12:00 100 12/27/19 12:00 Bi-pap Intake and Output 12/27/19 12/28/19 19:00 07:00 Intake Total 1205.410 ml 1383.501 ml Output Total 260 ml 420 ml Balance 945.410 ml 963.501 ml Free Water 100 ml IV Total 1205.410 ml 1223.501 ml Other 60 ml Output Urine Total 260 ml 420 ml # Voids 105 Laboratory Tests 12/28/19 04:35: White Blood Count 18.1H, Red Blood Count 3.17L, Hemoglobin 8.9L, Hematocrit 27.2L, Mean Corpuscular Volume 86, Mean Corpuscular Hemoglobin 28.1, Mean Corpuscular Hemoglobin Concent 32.7, Red Cell Distribution Width 11.9, Platelet Count 238, Mean Platelet Volume 8.4, Neutrophils (%) (Auto) , Lymphocytes (%) ( Auto) , Monocytes (%) (Auto) , Eosinophils (%) (Auto) , Basophils (%) (Auto) , Differential Total Cells Counted 100, Neutrophils % (Manual) 96H, Lymphocytes % (Manual) 1L, Monocytes % (Manual) 3, Eosinophils % (Manual) 0, Basophils % ( Manual) 0, Band Neutrophils 0, Platelet Estimate Adequate, Platelet Morphology Normal, Hypochromasia 1+, Activated Partial Thromboplast Time 50H, Sodium Level 147H, Potassium Level 4.4, Chloride Level 109H, Carbon Dioxide Level 30, Anion Gap 8, Blood Urea Nitrogen 49H, Creatinine 1.7H, Estimat Glomerular Filtration Rate 48.4, Glucose Level 197H, Calcium Level 8.4L, Phosphorus Level 3.2, Magnesium Level 2.1, Total Bilirubin 0.4, Direct Bilirubin 0.2, Aspartate Amino Transf (AST/SGOT) 22, Alanine Aminotransferase (ALT/SGPT) 20, Alkaline Phosphatase 144H, C-Reactive Protein, Quantitative 31.1H, Pro-B-Type Natriuretic Peptide 78844A, Total Protein 6.6, Albumin 1.8L, Random Vancomycin Level 20.7 12/28/19 08:27: Arterial Blood pH 7.328L, Arterial Blood Partial Pressure CO2 53.0H, Arterial Blood Partial Pressure O2 46.3*L, Arterial Blood HCO3 27.2H, Arterial Blood Oxygen Saturation 76.2*L, Arterial Blood Base Excess 0.8, Devyn Test Positive Height (Feet): 5 Height (Inches): 8.00 Weight (Pounds): 175 General Appearance: mild distress Cardiovascular: tachycardia Respiratory/Chest: decreased breath sounds Abdomen: distended Objective No change Ed Vega MD December 28, 2019 11:41
--- NOTE | 2019-12-28 12:09 | NUR ---
NURSE NOTES: MD DONOHUE HERE TO SEE PT. INFORMED OF PVC'S, WIDE QRS COMPLEX. NO NEW ORDERS AT THIS TIME.
[2019-12-28] MEDS: Micafungin 100 MG in NS 110 ML IVPB SCH (12:11)
[2019-12-28] MEDS: Acetaminophen 650mg/20.3ml NG PRN (12:12)
--- NOTE | 2019-12-28 12:23 | Pulmonology Progress Note ---
Subjective ROS Limited/Unobtainable: Yes Interval Events: Doing poorly; remains on BiPAP Constitutional: Reports: no symptoms HEENT: Repors: no symptoms Respiratory: Reports: dry cough, shortness of breath Cardiovascular: Reports: no symptoms Gastrointestinal/Abdominal: Reports: no symptoms Genitourinary: Reports: no symptoms Neurologic: Reports: no symptoms Allergies: Coded Allergies: No Known Allergies (Unverified , 07/28/14) All Systems: reviewed and negative except above Objective Last 24 Hour Vital Signs Date Time Temp Pulse Resp B/P (MAP) Pulse Ox O2 Delivery O2 Flow Rate FiO2 12/28/19 11:00 93 44 83/53 (63) 100 12/28/19 10:36 93 46 100 100 12/28/19 10:00 95 39 99/54 (69) 100 12/28/19 09:19 97 38 100 100 12/28/19 09:00 97.8 96 40 112/58 (76) 69 12/28/19 08:26 101 128/69 12/28/19 08:00 Bi-pap 12/28/19 08:00 101 43 128/69 (88) 93 12/28/19 08:00 100 12/28/19 08:00 97 12/28/19 07:35 94 49 94 100 12/28/19 07:34 94 Bi-Pap 100 12/28/19 07:00 97 39 117/60 (79) 12/28/19 06:00 99 40 120/72 (88) 94 12/28/19 05:00 100 42 117/75 (89) 95 12/28/19 04:00 98.7 95 37 106/69 (81) 95 12/28/19 04:00 102 12/28/19 04:00 100 12/28/19 04:00 Bi-pap 12/28/19 03:20 97 40 99 100 12/28/19 03:00 98 38 110/59 (76) 99 12/28/19 02:00 109 44 133/64 (87) 99 12/28/19 01:00 106 48 137/84 (101) 96 12/28/19 00:00 98.4 102 36 144/91 (108) 91 12/28/19 00:00 100 12/28/19 00:00 94 12/28/19 00:00 Bi-pap 12/27/19 23:19 98 42 100 100 12/27/19 23:00 91 43 134/81 (98) 12/27/19 22:00 99.9 90 42 137/85 (102) 99 12/27/19 21:09 93 44 100 100 12/27/19 21:00 91 38 124/78 (93) 99 12/27/19 20:49 101 135/89 12/27/19 20:00 100 12/27/19 20:00 95 12/27/19 20:00 95 36 124/76 (92) 99 12/27/19 20:00 Bi-pap 12/27/19 19:02 100 Bi-Pap 100 12/27/19 19:01 101 45 100 100 12/27/19 19:00 98 39 135/89 (104) 12/27/19 18:00 101 41 135/81 (99) 97 12/27/19 17:00 91 46 139/80 (99) 90 12/27/19 16:00 100 12/27/19 16:00 91 12/27/19 16:00 99.3 88 49 130/85 (100) 87 12/27/19 16:00 Bi-pap 12/27/19 15:00 87 41 139/75 (96) 93 12/27/19 14:56 82 38 93 100 12/27/19 14:00 86 42 135/73 (93) 91 12/27/19 13:00 93 44 129/71 (90) 92 12/27/19 12:30 88 43 128/77 (94) 97 Intake and Output 12/27/19 12/28/19 19:00 07:00 Intake Total 1205.410 ml 1383.501 ml Output Total 260 ml 420 ml Balance 945.410 ml 963.501 ml Free Water 100 ml IV Total 1205.410 ml 1223.501 ml Other 60 ml Output Urine Total 260 ml 420 ml # Voids 105 General Appearance: no acute distress HEENT: normocephalic Respiratory: chest wall non-tender, decreased breath sounds Cardiovascular: normal peripheral pulses, normal rate Abdomen: normal bowel sounds Microbiology Date/Time Source Procedure Growth Status 12/26/19 03:00 Urine,Clean Catch Urine Culture - Final Marybeth Albicans Complete Laboratory Tests 12/28/19 04:35: White Blood Count 18.1H, Red Blood Count 3.17L, Hemoglobin 8.9L, Hematocrit 27.2L, Mean Corpuscular Volume 86, Mean Corpuscular Hemoglobin 28.1, Mean Corpuscular Hemoglobin Concent 32.7, Red Cell Distribution Width 11.9, Platelet Count 238, Mean Platelet Volume 8.4, Neutrophils (%) (Auto) , Lymphocytes (%) ( Auto) , Monocytes (%) (Auto) , Eosinophils (%) (Auto) , Basophils (%) (Auto) , Differential Total Cells Counted 100, Neutrophils % (Manual) 96H, Lymphocytes % (Manual) 1L, Monocytes % (Manual) 3, Eosinophils % (Manual) 0, Basophils % ( Manual) 0, Band Neutrophils 0, Platelet Estimate Adequate, Platelet Morphology Normal, Hypochromasia 1+, Activated Partial Thromboplast Time 50H, Sodium Level 147H, Potassium Level 4.4, Chloride Level 109H, Carbon Dioxide Level 30, Anion Gap 8, Blood Urea Nitrogen 49H, Creatinine 1.7H, Estimat Glomerular Filtration Rate 48.4, Glucose Level 197H, Calcium Level 8.4L, Phosphorus Level 3.2, Magnesium Level 2.1, Total Bilirubin 0.4, Direct Bilirubin 0.2, Aspartate Amino Transf (AST/SGOT) 22, Alanine Aminotransferase (ALT/SGPT) 20, Alkaline Phosphatase 144H, C-Reactive Protein, Quantitative 31.1H, Pro-B-Type Natriuretic Peptide 46027U, Total Protein 6.6, Albumin 1.8L, Random Vancomycin Level 20.7 12/28/19 08:27: Arterial Blood pH 7.328L, Arterial Blood Partial Pressure CO2 53.0H, Arterial Blood Partial Pressure O2 46.3*L, Arterial Blood HCO3 27.2H, Arterial Blood Oxygen Saturation 76.2*L, Arterial Blood Base Excess 0.8, Devyn Test Positive Current Medications Medications (Trade) Dose Ordered Sig/Wiley Route PRN Reason Start Time Stop Time Status Last Admin Dose Admin Acetaminophen (Tylenol) 650 mg Q6H PRN NG Mild Pain (Pain Scale 1-3) 12/26/19 17:00 01/25/20 16:59 12/28/19 12:12 Albumin Human 100 ml @ 100 mls/hr ONCE ONCE IV 12/28/19 11:45 12/28/19 12:44 12/28/19 12:11 Carvedilol (Coreg) 3.125 mg EVERY 12 HOURS NG 12/26/19 21:00 01/10/20 20:59 12/28/19 08:26 Chlorhexidine Gluconate (Milagro-Hex 2%) 1 applic DAILY@2000 TOPIC 12/25/19 20:00 03/24/20 19:59 12/27/19 20:49 Dextrose (Dextrose 50%) 25 ml Q30M PRN IV Hypoglycemia 12/24/19 13:45 03/23/20 13:44 Dextrose (Dextrose 50%) 50 ml Q30M PRN IV Hypoglycemia 12/24/19 13:45 03/23/20 13:44 Heparin Sodium/ Dextrose 500 ml @ 29.819 mls/ hr ADJUST PER PROTOCOL IV 12/28/19 07:00 01/27/20 06:59 12/28/19 06:48 Heparin Sodium/ Sodium Chloride (Heparin 1000 units/500ml Premix) 1,000 unit ONCE PRN IV dialysis 12/27/19 14:15 12/29/19 14:14 Insulin Aspart (NovoLOG) Q6HR SUBQ 12/24/19 18:00 03/23/20 17:59 12/28/19 06:54 Levetiracetam (Keppra) 1,000 mg Q12HR NG 12/26/19 09:00 01/25/20 08:59 12/28/19 08:25 Lidocaine HCl (Xylocaine 1% 30ml) 30 ml ONCE PRN INJ picc line placement 12/27/19 14:15 12/29/19 14:14 Lorazepam (Ativan 2mg/ml 1ml) 1 mg Q6H PRN IV For Anxiety 12/26/19 13:45 01/02/20 13:44 12/26/19 13:42 Meropenem 1 gm/ Sodium Chloride 55 ml @ 110 mls/hr Q12HR IVPB 12/25/19 14:00 12/30/19 13:59 12/28/19 08:25 Micafungin Sodium 100 mg/Sodium Chloride 110 ml @ 110 mls/hr Q24H IVPB 12/27/19 12:30 01/03/20 12:29 12/28/19 12:11 Norepinephrine Bitartrate 4 mg/ Dextrose 250 ml @ 0 mls/hr Q24H PRN IV For hypotension 12/24/19 19:00 01/23/20 18:59 12/25/19 16:02 Sodium Chloride 1,000 ml @ 75 mls/hr [id number] IV 12/24/19 13:15 01/23/20 09:29 12/28/19 11:03 Vancomycin HCl (Vanco rx to dose) 1 ea DAILY PRN MISC Per rx protocol 12/27/19 11:15 01/26/20 11:14 Vancomycin HCl 1 gm/Dextrose 275 ml @ 183.708 mls/hr ONCE IVPB 12/28/19 21:00 12/28/19 23:00 Assessment/Plan Assessment/Plan IMPRESSION: 1. Cardiomyopathy. 2. Hypotension. 3. Left lung pneumonia. 4. half-way resident. 5. Positive COVID-19. DISCUSSION: 1. Continue isolation 2. Continue current medications. 3. Off pressors. 4. Continue BiPAP; abg adequate 5. Pulmonary hygiene. 6. Broad-spectrum antibiotics. 7. I will follow. 8. Pulmonary hygiene 9. Continue diuresis, on Lasix 40 mg IV BID; CXR unchanged On anticoagulation Amber Walters Omar Syed MD December 28, 2019 12:23
--- NOTE | 2019-12-28 13:00 | NUR ---
NURSE NOTES: accuk 237, 4units given
--- NOTE | 2019-12-28 13:07 | Cardiac Electrophysiology PN ---
Assessment/Plan Assessment/Plan 1. Septic Shock and CH[place] 40% [place] [address] Sanchez. Off Levophed 2. CHF EF 40%. On Coreg 3.125 bid. DC iv fluid 3. Status post right-sided MERT ICD. 4. Hypertension 5. History of CVA with residual weakness. 6. Respiratory failure due to COVID-19 PNA, on BIPAP and heparin drip 7. Hypernatremia. On 08/15 NS 75cc/hr 8. Acute renal failure. Cr up from 0.9 to 2.8. Decreased to 1.7 DW RN Subjective Subjective In Covid isolation in ICU Off levo. On BIPAP / and heparin drip. Still full code. Objective Last 24 Hour Vital Signs Date Time Temp Pulse Resp B/P (MAP) Pulse Ox O2 Delivery O2 Flow Rate FiO2 12/28/19 11:00 93 44 83/53 (63) 100 12/28/19 10:36 93 46 100 100 12/28/19 10:00 95 39 99/54 (69) 100 12/28/19 09:19 97 38 100 100 12/28/19 09:00 97.8 96 40 112/58 (76) 69 12/28/19 08:26 101 128/69 12/28/19 08:00 Bi-pap 12/28/19 08:00 101 43 128/69 (88) 93 12/28/19 08:00 100 12/28/19 08:00 97 12/28/19 07:35 94 49 94 100 12/28/19 07:34 94 Bi-Pap 100 12/28/19 07:00 97 39 117/60 (79) 12/28/19 06:00 99 40 120/72 (88) 94 12/28/19 05:00 100 42 117/75 (89) 95 12/28/19 04:00 98.7 95 37 106/69 (81) 95 12/28/19 04:00 102 12/28/19 04:00 100 12/28/19 04:00 Bi-pap 12/28/19 03:20 97 40 99 100 12/28/19 03:00 98 38 110/59 (76) 99 12/28/19 02:00 109 44 133/64 (87) 99 12/28/19 01:00 106 48 137/84 (101) 96 12/28/19 00:00 98.4 102 36 144/91 (108) 91 12/28/19 00:00 100 12/28/19 00:00 94 12/28/19 00:00 Bi-pap 12/27/19 23:19 98 42 100 100 12/27/19 23:00 91 43 134/81 (98) 12/27/19 22:00 99.9 90 42 137/85 (102) 99 12/27/19 21:09 93 44 100 100 12/27/19 21:00 91 38 124/78 (93) 99 12/27/19 20:49 101 135/89 12/27/19 20:00 100 12/27/19 20:00 95 12/27/19 20:00 95 36 124/76 (92) 99 12/27/19 20:00 Bi-pap 12/27/19 19:02 100 Bi-Pap 100 12/27/19 19:01 101 45 100 100 12/27/19 19:00 98 39 135/89 (104) 12/27/19 18:00 101 41 135/81 (99) 97 12/27/19 17:00 91 46 139/80 (99) 90 12/27/19 16:00 100 12/27/19 16:00 91 12/27/19 16:00 99.3 88 49 130/85 (100) 87 12/27/19 16:00 Bi-pap 12/27/19 15:00 87 41 139/75 (96) 93 12/27/19 14:56 82 38 93 100 12/27/19 14:00 86 42 135/73 (93) 91 Intake and Output 12/27/19 12/28/19 19:00 07:00 Intake Total 1205.410 ml 1383.501 ml Output Total 260 ml 420 ml Balance 945.410 ml 963.501 ml Free Water 100 ml IV Total 1205.410 ml 1223.501 ml Other 60 ml Output Urine Total 260 ml 420 ml # Voids 105 Laboratory Tests Test 12/28/19 04:35 12/28/19 08:27 White Blood Count 18.1 K/UL (4.8-10.8) H Red Blood Count 3.17 M/UL (4.70-6.10) L Hemoglobin 8.9 G/DL (14.2-18.0) L Hematocrit 27.2 % (42.0-52.0) L Mean Corpuscular Volume 86 FL (80-99) Mean Corpuscular Hemoglobin 28.1 PG (27.0-31.0) Mean Corpuscular Hemoglobin Concent 32.7 G/DL (32.0-36.0) Red Cell Distribution Width 11.9 % (11.6-14.8) Platelet Count 238 K/UL (150-450) Mean Platelet Volume 8.4 FL (6.5-10.1) Neutrophils (%) (Auto) % (45.0-75.0) Lymphocytes (%) (Auto) % (20.0-45.0) Monocytes (%) (Auto) % (1.0-10.0) Eosinophils (%) (Auto) % (0.0-3.0) Basophils (%) (Auto) % (0.0-2.0) Differential Total Cells Counted 100 Neutrophils % (Manual) 96 % (45-75) H Lymphocytes % (Manual) 1 % (20-45) L Monocytes % (Manual) 3 % (1-10) Eosinophils % (Manual) 0 % (0-3) Basophils % (Manual) 0 % (0-2) Band Neutrophils 0 % (0-8) Platelet Estimate Adequate Platelet Morphology Normal Hypochromasia 1+ Activated Partial Thromboplast Time 50 SEC (23-33) H Sodium Level 147 MMOL/L (136-145) H Potassium Level 4.4 MMOL/L (3.5-5.1) Chloride Level 109 MMOL/L (98-107) H Carbon Dioxide Level 30 MMOL/L (21-32) Anion Gap 8 mmol/L (5-15) Blood Urea Nitrogen 49 mg/dL (7-18) H Creatinine 1.7 MG/DL (0.55-1.30) H Estimat Glomerular Filtration Rate 48.4 mL/min (>60) Glucose Level 197 MG/DL (74-106) H Calcium Level 8.4 MG/DL (8.5-10.1) L Phosphorus Level 3.2 MG/DL (2.5-4.9) Magnesium Level 2.1 MG/DL (1.8-2.4) Total Bilirubin 0.4 MG/DL (0.2-1.0) Direct Bilirubin 0.2 MG/DL (0.0-0.3) Aspartate Amino Transf (AST/SGOT) 22 U/L (15-37) Alanine Aminotransferase (ALT/SGPT) 20 U/L (12-78) Alkaline Phosphatase 144 U/L (46-116) H C-Reactive Protein, Quantitative 31.1 mg/dL (0.00-0.90) H Pro-B-Type Natriuretic Peptide 91067 pg/mL (0-125) H Total Protein 6.6 G/DL (6.4-8.2) Albumin 1.8 G/DL (3.4-5.0) L Random Vancomycin Level 20.7 ug/mL Arterial Blood pH 7.328 (7.350-7.450) Arterial Blood Partial Pressure CO2 53.0 mmHg (35.0-45.0) H Arterial Blood Partial Pressure O2 46.3 mmHg (75.0-100.0) Arterial Blood HCO3 27.2 mmol/L (22.0-26.0) H Arterial Blood Oxygen Saturation 76.2 % (95-100) *L Arterial Blood Base Excess 0.8 (-2-2) Devyn Test Positive Microbiology Date/Time Source Procedure Growth Status 12/26/19 03:00 Urine,Clean Catch Urine Culture - Final Marybeth Albicans Complete Objective HEAD AND NECK: Mild JVD.BIPAP is on LUNGS: Decreased breath sounds and rhonchi CARDIOVASCULAR: Regular S1 and S2 with no gallop. ABDOMEN: Soft. EXTREMITIES: 1+ pitting edema. Defibrillator right subclavian. Shai Bullard MD December 28, 2019 13:07
--- NOTE | 2019-12-28 13:30 | NUR ---
NURSE NOTES: late entry: called lab for ptt draw, unable to get from picc. will be up as soon as possible.
[2019-12-28] MEDS ORDERED: 1/2 NS 1000ml IV ONE (14:06)
[2019-12-28] MEDS ORDERED: NS 500ML ONE (14:06)
--- NOTE | 2019-12-28 16:00 | NUR ---
NURSE NOTES: heparin drip running at 15unit/kg. Levophed drip running at 16mcg/min
--- NOTE | 2019-12-28 19:09 | NUR ---
CODE BLUE: BP HYPOTENSIVE BACK ON LEVOPHED. PT BRADYCARDIAC, HYPOTENSIVE, PEA. NO FEMORAL PULSE FELT, CODE CALLED. EPI GIVEN X4, ROCS AND PT INTUBATED. See Code sheet which remains on paper.
--- NOTE | 2019-12-28 19:20 | NUR ---
CODE BLUE: See Code sheet which remains on paper. PT . WITH ADDITIONAL EPI GIVEN. ASYSTOLE. NO ROSC
--- NOTE | 2019-12-28 19:40 | NUR ---
CODE BLUE: See Code sheet which remains on paper.
[2019-12-28] MEDS ORDERED: Sodium Bicarbonate 50ml Carp ONE (19:42)
--- NOTE | 2019-12-28 19:43 | NUR ---
NURSE NOTES: ER MD Mcclure at the bedside patient asystole. Time of called.
--- NOTE | 2019-12-28 19:51 | Emergency Room Report ---
Physical Exam Called for code blue. Patient on BiPAP. Josef then asystole. Epi X3 before I arrived. On pressors. Last 24 Hour Vital Signs Date Time Temp Pulse Resp B/P (MAP) Pulse Ox O2 Delivery O2 Flow Rate FiO2 12/28/19 18:00 91 38 94/66 (75) 97 12/28/19 17:45 86/62 12/28/19 17:00 90 40 87/61 (70) 98 12/28/19 16:30 92 39 96/58 (71) 100 12/28/19 16:00 100 12/28/19 16:00 Bi-pap 12/28/19 16:00 100 12/28/19 16:00 99.0 100 40 117/79 (92) 100 12/28/19 15:30 102 40 136/74 (94) 95 12/28/19 15:13 98 41 94 100 12/28/19 15:00 93 40 94/50 (65) 90 12/28/19 14:00 95 46 84/61 (69) 92 12/28/19 13:00 94 44 92/63 (73) 92 12/28/19 13:00 95 45 92/63 (73) 91 12/28/19 12:00 95 12/28/19 12:00 98.0 96 45 96/60 (72) 100 12/28/19 12:00 Bi-pap 12/28/19 12:00 91 40 96/60 (72) 99 12/28/19 12:00 100 12/28/19 11:00 93 44 83/53 (63) 100 12/28/19 10:36 93 46 100 100 12/28/19 10:00 95 39 99/54 (69) 100 12/28/19 09:19 97 38 100 100 12/28/19 09:00 97.8 96 40 112/58 (76) 69 12/28/19 08:26 101 128/69 12/28/19 08:00 Bi-pap 12/28/19 08:00 101 43 128/69 (88) 93 12/28/19 08:00 100 12/28/19 08:00 97 12/28/19 07:35 94 49 94 100 12/28/19 07:34 94 Bi-Pap 100 12/28/19 07:00 97 39 117/60 (79) 12/28/19 06:00 99 40 120/72 (88) 94 12/28/19 05:00 100 42 117/75 (89) 95 12/28/19 04:00 98.7 95 37 106/69 (81) 95 12/28/19 04:00 102 12/28/19 04:00 100 12/28/19 04:00 Bi-pap 12/28/19 03:20 97 40 99 100 12/28/19 03:00 98 38 110/59 (76) 99 12/28/19 02:00 109 44 133/64 (87) 99 12/28/19 01:00 106 48 137/84 (101) 96 12/28/19 00:00 98.4 102 36 144/91 (108) 91 12/28/19 00:00 100 12/28/19 00:00 94 12/28/19 00:00 Bi-pap 12/27/19 23:19 98 42 100 100 12/27/19 23:00 91 43 134/81 (98) 12/27/19 22:00 99.9 90 42 137/85 (102) 99 12/27/19 21:09 93 44 100 100 12/27/19 21:00 91 38 124/78 (93) 99 12/27/19 20:49 101 135/89 12/27/19 20:00 100 12/27/19 20:00 95 12/27/19 20:00 95 36 124/76 (92) 99 12/27/19 20:00 Bi-pap Sp02 EP Interpretation: reviewed, abnormal - Interpreted as low by me General Appearance: other - Flaccid and unresponsive Head: normocephalic, atraumatic Eyes: bilateral eye other - Pupils unreactive and no aspirin, advil, aleve, alkaselzer, peptobismol or alcohol. Tylenol and mylanta OK.Follow up with your private physician.You should see a retail solar advisor.You need to have testing for H. pylori. Extraocular motions ENT: moist mucus membranes, other - BiPAP mask Neck: other - Flaccid Respiratory: other - No spontaneous respirations Cardiovascular #1: other - Pulses with CPR only Cardiovascular #2: 2+ femoral (L) Gastrointestinal: abnormal bowel sounds Musculoskeletal: other - Flaccid Neurologic: other - Unresponsive Psychiatric: other - Unresponsive Skin: pallor CPR/Code Blue CPR/Code Blue Narrative CODE BLUE #1 Code called 1908. When I arrived CPR was being performed and was supervised by me. Epinephrine had been given x3. Patient intubated. Initial esophageal intubation. Re-Tushar intubation successful. Epinephrine repeated. Pulses present and sinus tachycardia on monitor. CODE BLUE #2 Code called 193. Epinephrine given x1. Return of spontaneous circulation at 1932. Sinus tachycardia on monitor CODE BLUE #3 Patient in asystole. CPR and medications withheld due to futile care. Patient pronounced 1941. Intubation Intubation : Consent: Emergent Intubation Method: orotracheal Tube Size (cm): 7.5 Medications: Other - None Breath Sounds after Intubation: equal Intubation Complications: no complications Post Intubation Xray: No Attempts: Other - 2 Patient Tolerated: Well Complications: Other - Initial esophageal intubation immediately removed. Medical Decision Making Diagnostic Impression: Primary Impression: Cardiopulmonary arrest Additional Impressions: Respiratory failure Qualified Codes: J96.01 - Acute respiratory failure with hypoxia; J96.02 - Acute respiratory failure with hypercapnia COVID-19 virus infection ER Course Patient on BiPAP coded with asystole. Patient on maximal pressors and unresponsive the duration of this shift. COVID- 19 positive. Please see CODE BLUE reports. There were a total of 3 CODE BLUE events. The first 2 led to return of spontaneous circulation with tachycardia and blood pressure. The third code it was felt that the patient demonstrated futile care and CPR and medications were withheld. The patient was pronounced at 19:42. Laboratory Tests Test 12/27/19 03:35 12/27/19 07:00 12/27/19 07:45 12/28/19 04:35 White Blood Count 8.0 K/UL (4.8-10.8) 17.1 K/UL (4.8-10.8) #H 18.1 K/UL (4.8-10.8) H Red Blood Count 2.25 M/UL (4.70-6.10) L 3.23 M/UL (4.70-6.10) L 3.17 M/UL (4.70-6.10) L Hemoglobin 6.3 G/DL (14.2-18.0) 9.1 G/DL (14.2-18.0) #L 8.9 G/DL (14.2-18.0) L Hematocrit 20.3 % (42.0-52.0) #L 27.9 % (42.0-52.0) #L 27.2 % (42.0-52.0) L Mean Corpuscular Volume 90 FL (80-99) 87 FL (80-99) 86 FL (80-99) Mean Corpuscular Hemoglobin 28.0 PG (27.0-31.0) 28.1 PG (27.0-31.0) 28.1 PG (27.0-31.0) Mean Corpuscular Hemoglobin Concent 31.0 G/DL (32.0-36.0) L 32.5 G/DL (32.0-36.0) 32.7 G/DL (32.0-36.0) Red Cell Distribution Width 13.4 % (11.6-14.8) 12.2 % (11.6-14.8) 11.9 % (11.6-14.8) Platelet Count 90 K/UL (150-450) #L 192 K/UL (150-450) # 238 K/UL (150-450) Mean Platelet Volume 6.3 FL (6.5-10.1) L 7.1 FL (6.5-10.1) 8.4 FL (6.5-10.1) Neutrophils (%) (Auto) % (45.0-75.0) % (45.0-75.0) % (45.0-75.0) Lymphocytes (%) (Auto) % (20.0-45.0) % (20.0-45.0) % (20.0-45.0) Monocytes (%) (Auto) % (1.0-10.0) % (1.0-10.0) % (1.0-10.0) Eosinophils (%) (Auto) % (0.0-3.0) % (0.0-3.0) % (0.0-3.0) Basophils (%) (Auto) % (0.0-2.0) % (0.0-2.0) % (0.0-2.0) Differential Total Cells Counted 100 100 100 Neutrophils % (Manual) 86 % (45-75) H 87 % (45-75) H 96 % (45-75) H Lymphocytes % (Manual) 9 % (20-45) L 8 % (20-45) L 1 % (20-45) L Monocytes % (Manual) 3 % (1-10) 4 % (1-10) 3 % (1-10) Eosinophils % (Manual) 1 % (0-3) 1 % (0-3) 0 % (0-3) Basophils % (Manual) 0 % (0-2) 0 % (0-2) 0 % (0-2) Band Neutrophils 1 % (0-8) 0 % (0-8) 0 % (0-8) Nucleated Red Blood Cells /100 WBC Platelet Estimate Decreased L Adequate Adequate Platelet Morphology Normal Normal Normal Hypochromasia 1+ 1+ 1+ Activated Partial Thromboplast Time 73 SEC (23-33) H 50 SEC (23-33) H Sodium Level 150 MMOL/L (136-145) H 147 MMOL/L (136-145) H Potassium Level 4.1 MMOL/L (3.5-5.1) 4.4 MMOL/L (3.5-5.1) Chloride Level 110 MMOL/L (98-107) H 109 MMOL/L (98-107) H Carbon Dioxide Level 33 MMOL/L (21-32) H 30 MMOL/L (21-32) Anion Gap 7 mmol/L (5-15) 8 mmol/L (5-15) Blood Urea Nitrogen 54 mg/dL (7-18) H 49 mg/dL (7-18) H Creatinine 1.7 MG/DL (0.55-1.30) H 1.7 MG/DL (0.55-1.30) H Estimated Glomerular Filtration Rate 48.4 mL/min (>60) 48.4 mL/min (>60) Glucose Level 176 MG/DL (74-106) H 197 MG/DL (74-106) H Calcium Level 8.7 MG/DL (8.5-10.1) 8.4 MG/DL (8.5-10.1) L Phosphorus Level 2.6 MG/DL (2.5-4.9) 3.2 MG/DL (2.5-4.9) Magnesium Level 2.5 MG/DL (1.8-2.4) H 2.1 MG/DL (1.8-2.4) Total Bilirubin 0.4 MG/DL (0.2-1.0) 0.4 MG/DL (0.2-1.0) Direct Bilirubin 0.2 MG/DL (0.0-0.3) 0.2 MG/DL (0.0-0.3) Aspartate Amino Transferase (AST) 27 U/L (15-37) 22 U/L (15-37) Alanine Aminotransferase (ALT) 23 U/L (12-78) 20 U/L (12-78) Alkaline Phosphatase 114 U/L (46-116) 144 U/L (46-116) H Total Protein 6.7 G/DL (6.4-8.2) 6.6 G/DL (6.4-8.2) Albumin 2.0 G/DL (3.4-5.0) L 1.8 G/DL (3.4-5.0) L Arterial Blood pH 7.372 (7.350-7.450) Arterial Blood Partial Pressure CO2 55.0 mmHg (35.0-45.0) H Arterial Blood Partial Pressure O2 59.3 mmHg (75.0-100.0) L Arterial Blood HCO3 31.2 mmol/L (22.0-26.0) H Arterial Blood Oxygen Saturation 88.0 % (95-100) *L Arterial Blood Base Excess 5.0 (-2-2) H Devyn Test Positive C-Reactive Protein, Quantitative 31.1 mg/dL (0.00-0.90) H Pro-B-Type Natriuretic Peptide 76961 pg/mL (0-125) H Random Vancomycin Level 20.7 ug/mL Test 12/28/19 08:27 12/28/19 14:45 Arterial Blood pH 7.328 (7.350-7.450) Arterial Blood Partial Pressure CO2 53.0 mmHg (35.0-45.0) H Arterial Blood Partial Pressure O2 46.3 mmHg (75.0-100.0) Arterial Blood HCO3 27.2 mmol/L (22.0-26.0) H Arterial Blood Oxygen Saturation 76.2 % (95-100) *L Arterial Blood Base Excess 0.8 (-2-2) Devyn Test Positive Activated Partial Thromboplast Time > 150 SEC (23-33) *H Rhythm Strip Diag. Results Rhythm: no PVC's, no ectopy, other - Tachycardia Status: worsened Disposition: Condition: Referrals: Tee Novoa DO (PCP) Thaddeus Mcclure MD December 28, 2019 19:51
--- NOTE | 2019-12-28 19:53 | NUR ---
NURSE NOTES: Called and left message for MD Novoa at this time to notify him patient has .
--- NOTE | 2019-12-28 19:53 | NUR ---
NURSE NOTES: [employer] called at this time. patient not a candidate for donation [phone]
--- NOTE | 2019-12-28 19:57 | NUR ---
NURSE NOTES: Irene JIMENEZ [facility]. [facility] not a [facility]. Spoke with Tina Batista
--- NOTE | 2019-12-28 20:20 | NUR ---
NURSE NOTES: Post mortem done.
[2019-12-28] MEDS ORDERED: Vancomycin 1gm in D5W 275ml IVPB SCH (21:00)
--- NOTE | 2019-12-28 22:00 | Progress Note ---
DATE: 12/28/2019 HISTORY OF PRESENT ILLNESS: This is a male patient with hypotension, sepsis, causing him to have altered mental status and decline in cognition below his baseline. That is why his attending has requested daily psychiatric consultation. MENTAL STATUS EXAMINATION: This is a 69-year-old male. Appearance is disheveled. Attitude, irritable and agitated. Affect, guarded and restricted. Intellect poor. Mood, depressed and anxious. Motor activity, psychomotor agitation. Attention span is poor. Orientation x2. Speech is low volume, slurred. Thought process, disorganized and illogical. Judgment is poor. DIAGNOSIS: Major depressive disorder, mild, recurrent with psychotic features. PLAN: Treat with Ativan 1 every 6 hours p.r.n. anxiety and agitation. Twenty minutes of insight-oriented psychotherapy which would provide insight into his psychiatric condition and physical condition to have better impulse control and behavior on the unit. Chart was reviewed and discussed with staff. Seen and assessed at bedside. Mirna Adkins M.D. DR: Alice JOB#: [id number] CC:
--- NOTE | 2019-12-29 02:11 | NUR ---
NURSE NOTES: Send body and belongings to [facility] [place].
--- NOTE | 2019-12-30 16:43 | Discharge Summary ---
Discharge Summary Discharge Summary _ SUMMARY DATE OF ADMISSION: 12/06/2019 DATE OF EXPIRATION: 12/28/2019 REASON FOR ADMISSION: 69 years old male with past medical history of hypertension, cardiomyopathy, AICD, presented from the shelter facility with hypotension and altered mental status. Patient presented from shelter [facility] , where many cases of COVID-19 were identified. Patient was afebrile , but hypotensive and hypoxic , requiring supplemental oxygen. Central line was placed in emergency department for pressors. Laboratory work-up revealed no leukocytosis , hemoglobin 11.6, hematocrit 34.4, platelet count 149. Lymphopenia noted. Stable electrolytes. BUN 71, creatinine 2.4. Glucose 229. Lactic acid 1.3. Troponin 0.003, pro BNP 736. Stable LFT and lipase. Urinalysis revealed +2 protein, no evidence of urinary tract infection. EKG revealed sinus rhythm, no acute ischemic changes, left axis deviation. Chest x-ray demonstrated left basilar atelectasis and/or infiltrate. Septic work-up initiated. Patient received fluid resuscitation, pancultured, started on empiric antibiotics and pressors, and admitted to ICU for further management. In addition, patient was swabbed for COVID-19 given exposure at the facility. CONSULTANTS: polytechnic teacher Dr. Magana pulmonary Dr. Montalvo ID specialist Dr. Sanchez contract graphic designer Dr. Vega psychiatrist Dr. Adkins [facility]: Patient admitted to ICU. Hemodynamic status was closely monitored. Pressors titrated to keep mean arterial blood pressure above 65. Patient started on empiric antibiotics. Patient was kept in isolation. Delete SARS-CoV-2 by PCR 12/05 was detected. Blood culture initial and repeated were negative. Influenza swab test was negative. Urine culture revealed Marybeth. Supplemental oxygen provided and titrated to keep pulse oximetry above 92%. Pulmonary toilet provided. Patient was follow-up with ABG and chest x-ray. Respiratory status worsened : f patient required Venturi mask and then 100% nonrebreathing mask. Patient was later placed on the BiPAP. Patient developed leukocytosis and fevers. Antibiotic regimen further optimized as per ID specialist recommendation. Echocardiogram revealed reduced ejection fraction of 40% with mild anteroseptal wall akinesia and septal wall dyskinesia. Right ventricular systolic pressure of 35 consistent with mild pulmonary hypertension. Serial troponin were negative. EKG revealed no acute ischemic changes. Patient was ruled out for acute TX. Patient was able to be weaned from Levophed. Anti--failure regimen continued. Patient was on beta-kevin. Patient was gently hydrated with close monitoring of renal parameters and electrolytes. Electrolytes corrected as needed. Creatinine from initial 2.4 on admission down to 1.7. Pro BNP trended up. P atient started on diuresis with IV Lasix. Diuresis provided with close monitoring of volumes and renal parameters. D-dimer significantly elevated. Patient started on heparin drip. Hemodynamic status was closely monitored. Patient received albumin boluses for hypotension. Hemoglobin and hematocrit were closely monitored with goal to keep hemoglobin above 7. Seizure precaution maintained. Antiepileptic continued. No evidence of seizure activity while in the hospital. Psychiatrist followed. Psychiatric medication regimen optimized S per psychiatrist. On 12/27 CODE BLUE was called. Patient initially was bradycardic and then went to asystole. ACLS protocol initiated. Patient was orally intubated. Patient started back on pressors. Patient subsequently undergone additional 2 codes. During the third code he remained in asystole. All resuscitative efforts unfortunately appeared to be futile. Patient was pronounced on 12/27 at 19:42. Cause of :cardiopulmonary arrest likely due to COVID-19 infection. FINAL DIAGNOSES: s/p cardiopulmonary arrest x 3 Acute hypoxemic respiratory failure requiring intubation ( during the code) Confirmed COVID-19 infection Acute hypoxemic respiratory failure requiring increased FiO2 requirement Pneumonia probably due to COVID-19 virus Septic shock Cardiomyopathy with ejection fraction 40% CHF Acute renal failure/acute kidney injury Status post right -sided Hussein ICD History of hypertension Electrolyte imbalance Altered mental status History of CVA with right residual weakness. Major depressive disorder, mild, recurrent with psychotic features I have been assigned to dictate discharge summary for this account. I was not involved in the patient's management. Kirsten Nicole NP December 30, 2019 16:43
== END 2019-12-28 19:43 | disposition expired | DRG 871 ==
LOC: EDBD 09:49 → EMR 10:10 → ICU 10:26 → EDBEDREQSVC 10:37 → EDBEDREQ 19:43 → ICU 22:03 → 4E 12-11 12:45 → ICU 12-24 11:29
PROC: 06HM33Z Insertion of Infusion Device into Right Femoral Vein, Percutaneous Approach (ICD-10-PCS; principal; 2019-12-06)
PROC: B548ZZA Ultrasonography of Superior Vena Cava, Guidance (ICD-10-PCS; 2019-12-27)
PROC: 02HV33Z Insertion of Infusion Device into Superior Vena Cava, Percutaneous Approach (ICD-10-PCS; 2019-12-27)
PROC: 0BH17EZ Insertion of Endotracheal Airway into Trachea, Via Natural or Artificial Opening (ICD-10-PCS; 2019-12-28)
PROC: 5A12012 Performance of Cardiac Output, Single, Manual (ICD-10-PCS; 2019-12-28)
DX: A41.89 Other specified sepsis (principal); R65.21 Severe sepsis with septic shock; U07.1 COVID-19; J12.9 Viral pneumonia, unspecified; J96.01 Acute respiratory failure with hypoxia; I42.9 Cardiomyopathy, unspecified; N17.9 Acute kidney failure, unspecified; E87.0 Hyperosmolality and hypernatremia; N39.0 Urinary tract infection, site not specified; F32.3 Major depressive disorder, single episode, severe with psychotic features; I69.951 Hemiplegia and hemiparesis following unspecified cerebrovascular disease affecting right dominant side; F33.3 Major depressive disorder, recurrent, severe with psychotic symptoms; J44.0 Chronic obstructive pulmonary disease with (acute) lower respiratory infection; G40.909 Epilepsy, unspecified, not intractable, without status epilepticus; I69.920 Aphasia following unspecified cerebrovascular disease; E87.6 Hypokalemia; I11.0 Hypertensive heart disease with heart failure; I50.9 Heart failure, unspecified; E11.9 Type 2 diabetes mellitus without complications; Z95.810 Presence of automatic (implantable) cardiac defibrillator
CPT/HCPCS: 36415; 36569; 36600; 71045; 74018; 76937; 80048; 80053; 80076; 80202; 80299; 81003; 82550; 82553; 82728; 82803; 82962; 82977; 83036; 83605; 83615; 83690; 83735; 83880; 84100; 84439; 84443; 84481; 84484; 84550; 85007; 85025; 85379; 85384; 85610; 85651; 85730; 86140; 87040; 87081; 87086; 87635; 92950; 93005; 93306; 94660; 94664; 96365; 96367; 97803; 99291; C9399; J0171; J1815; J7030; J8499